=== PATIENT | female | born 1965 | race Caucasian/White ===

== ENCOUNTER 2025-01-20 00:11 | Inpatient (IN) | payer MEDICARE, MEDICAID, SELFPAY ==
[2025-01-20] VITALS (59 sets, daily range): BP systolic 102–213; BP diastolic 11–144; PULSE 60–86; RESP 14–18; TEMP 35–36.9; O2SAT 73–100; BMI 15.1
--- NOTE | ~2025-01-20 | XR_ITS ---
XR chest 1V portable 01/23/2025 05:28 Indication: Respiratory distress Procedure: AP portable chest Comparison: Comparison to multiple prior studies sequentially, with oldest reviewed study dated 01/20/2025. Findings: Borderline heart size. Bilateral airspace disease is present, most likely edema. Small left pleural effusion. No pneumothorax. Endotracheal tube tip 4.4 cm above the aylin. NG tube in the stomach. Central line tip in the SVC. Impression: 1: Borderline heart size with pulmonary edema. No significant change. Reviewed, dictated and finalized at location O. Impression: 1: Borderline heart size with pulmonary edema. No significant change.
--- NOTE | ~2025-01-20 | US_ITS ---
EXAM: US renal BI - 01/21/2025 7:55 CDT History: 59 years old Female with KAYKAY on CKD TECHNIQUE: Ultrasound of the kidneys was performed. COMPARISON: None available. FINDINGS: Increased echogenicity of both kidneys, concerning for medical renal disease. -Right: 9.6 x 4.4 x 4.2 cm. No masses, shadowing stone or perinephric abnormality. Mild hydronephrosis. -Left: 9.9 x 4.2 x 4.1 cm. No masses, shadowing stone or perinephric abnormality. Mild hydronephrosis. BLADDER: Collapsed around Mclean catheter. IMPRESSION: 1. Medical renal disease. 2. Mild bilateral hydronephrosis. No nephrolithiasis. Reviewed, dictated and finalized at location A.
--- NOTE | ~2025-01-20 | XR_ITS ---
Left wrist Technique: PA, oblique, lateral, and ulnar deviation views were obtained. Clinical History: Fracture Findings: There is old, healed fracture deformity the distal radius, with dorsal angulation present. There is a probable chronic nonunited fracture of the ulnar styloid process.. Joint spaces are preserved. Soft tissues are unremarkable. Impression: Probable chronic fracture deformities of the distal radius and ulnar styloid process, as detailed above. No definite acute fracture. Reviewed, dictated and finalized at location M. Impression: Probable chronic fracture deformities of the distal radius and ulnar styloid pr ocess, as detailed above. No definite acute fracture.
--- NOTE | ~2025-01-20 | XR_ITS ---
XR chest 1V portable 01/24/2025 05:25 Indication: Respiratory failure Procedure: AP portable chest Comparison: Comparison to multiple prior studies sequentially, with oldest reviewed study dated 01/20/2025. Findings: Borderline heart size. Right IJ central line tip in SVC. NG tube in the stomach. Endotracheal tube tip 5.2 cm above the aylin. Persistent diffuse interstitial infiltrates, consistent with edema without significant change compared with 01/23/2025. Small left pleural effusion. No pneumothorax. Impression: 1: Stable mild interstitial edema with small left pleural effusion. Reviewed, dictated and finalized at location O. Impression: 1: Stable mild interstitial edema with small left pleural effusion.
--- NOTE | ~2025-01-20 | XR_ITS ---
XR hip BI 2V w AP pelvis 01/24/2025 11:08 Indication: Acetabular fracture Procedure: AP pelvis and 2 views each hip Comparison: No prior studies for comparison. Findings: There are healing right acetabular and inferior pubic rami fractures with callus formation. No significant displacement. There is dynamic compression screw transfixing right proximal femoral fracture. Pelvic rings are otherwise intact. Left hip intact. Impression: 1: Healing right acetabular and inferior pubic rami fractures with callus formation. Reviewed, dictated and finalized at location O. Impression: 1: Healing right acetabular and inferior pubic rami fractures with callus forma tion.
--- NOTE | ~2025-01-20 | XR_ITS ---
XR chest 1V portable 01/26/2025 05:17 Indication: Respiratory failure Procedure: AP portable chest Comparison: Comparison to multiple prior studies sequentially, with oldest reviewed study dated 01/23/2025. Findings: Endotracheal tube tip 3 cm above the aylin. Right IJ central line tip in the SVC. NG tube in the stomach. Borderline heart size. Persistent retrocardiac opacification. No significant effusion or pneumothorax. Impression: 1: Stable retrocardiac opacification most likely atelectasis. Superimposed pneumonia not excluded. Reviewed, dictated and finalized at location O. Impression: 1: Stable retrocardiac opacification most likely atelectasis. Superimposed pneu monia not excluded.
--- NOTE | ~2025-01-20 | CT_ITS ---
CT head without contrast Indication: Altered mental status Technique: Serial scans were obtained through the brain without the administration of contrast. Dose reduction technique was used on this scan by utilizing automated exposure control and iterative reconstruction technique. The dose-length product (DLP) was 681.00 mGy-cm. Findings: There is no evidence of intracranial hemorrhage, mass lesion, or acute infarct. The ventricles and subarachnoid spaces are dilated, consistent with moderate atrophy. Low attenuation regions are seen within the periventricular white matter bilaterally, likely representing changes from chronic microvascular ischemic disease. There is no evidence of edema, mass effect or midline shift. The visualized paranasal sinuses and mastoid air cells are clear. Impression: No intracranial hemorrhage, mass, or acute infarct. Atrophy and chronic white matter changes, as above. Reviewed, dictated and finalized at location . Impression: No intracranial hemorrhage, mass, or acute infarct. Atrophy and chronic white matter changes, as above.
--- NOTE | ~2025-01-20 | XR_ITS ---
Upright portable view of the abdomen Clinical history: NG tube placement Findings: NG tube in satisfactory position. Bowel gas pattern is nonspecific. No evidence for obstruction or free air. No abnormal mass lesion or calcification is seen. Osseous structures are intact. Small left pleural effusion noted. Impression: NG tube in satisfactory position. Small left pleural effusion. Reviewed, dictated and finalized at [facility]. Impression: NG tube in satisfactory position. Small left pleural effusion.
--- NOTE | ~2025-01-20 | XR_ITS ---
Portable chest x-ray Comparison: 01/21/2025 Clinical History: Intubation Findings: Endotracheal tube, NG tube, and right IJ line are in place. There are small left pleural effusion with left lower lobe consolidation. There is worsening hazy airspace disease in the central right lung. Cardiomediastinal silhouette is stable. Bones and soft tissues are unremarkable. Impression: Small left pleural effusion with left lower lobe atelectasis or pneumonia. Worsening central airspace haziness in the lungs, compatible with mild central pulmonary edema. Support tubes, as above. Reviewed, dictated and finalized at location . Impression: Small left pleural effusion with left lower lobe atelectasis or pneumonia. Worsening central airspace haziness in the lungs, compatible with mild central pulmonary edema. Support tubes, as above.
--- NOTE | ~2025-01-20 | XR_ITS ---
EXAM/PROCEDURE: XR chest 1V portable - 01/20/2025 13:00 CDT HISTORY: 59 years old Female with increased O2 demand TECHNIQUE: AP view(s) of the chest. COMPARISON: None available. FINDINGS: LUNGS/ PLEURA: Small right lung pleural effusion. Bilateral airspace opacities and interstitial thickening. No pneumothorax. HEART/ MEDIASTINUM: Heart appears normal in size. BONES: Degenerative changes. OTHER: Visualized upper abdomen is unremarkable. Enteric tube projects beyond the [id number]. Tip of the endotracheal tube is 4.4 cm above aylin. IMPRESSION: Bilateral airspace opacities and interstitial thickening. Small right pleural effusion. Findings can represent pneumonia in appropriate clinical settings. Clinical correlation is recommended. Short-term follow-up chest radiograph is recommended after appropriate clinical therapy to document stability and/or resolution. Reviewed, dictated and finalized at location A. IMPRESSION: Bilateral airspace opacities and interstitial thickening. Small right pleural e ffusion. Findings can represent pneumonia in appropriate clinical settings. Cli nical correlation is recommended. Short-term follow-up chest radiograph is radha mmended after appropriate clinical therapy to document stability and/or resolut ion.
--- NOTE | ~2025-01-20 | XR_ITS ---
XR chest 1V portable 01/27/2025 05:46 Indication: Respiratory failure Procedure: AP portable chest Comparison: No prior studies for comparison. Findings: Borderline heart size. There are right interstitial infiltrates with peribronchial thickening. There is left basilar consolidation in the retrocardiac region. Right IJ central line tip in the SVC. Endotracheal tube tip 3 cm above the aylin. NG tube in the stomach. Impression: 1: Bilateral infiltrates may represent a combination of edema, pneumonia and/or atelectasis. Reviewed, dictated and finalized at location O. Impression: 1: Bilateral infiltrates may represent a combination of edema, pneumonia and/or atelectasis.
--- NOTE | ~2025-01-20 | XR_ITS ---
Portable chest x-ray Comparison: 01/20/2025 Clinical History: Intubation Findings: Endotracheal tube, NG tube, and right IJ line are in place. There are small left pleural effusion with left basilar consolidation. Mild perihilar haziness bilaterally. Cardiomediastinal silhouette is stable. Bones and soft tissues are unremarkable. Impression: Small left pleural effusion with left basilar atelectasis versus pneumonia. Probable mild central pulmonary edema. Support tubes, as above. Reviewed, dictated and finalized at [facility]. Impression: Small left pleural effusion with left basilar atelectasis versus pneumonia. Probable mild central pulmonary edema. Support tubes, as above.
--- NOTE | ~2025-01-20 | CT_ITS ---
Clinical Indication: GI bleed CT Scan of the Chest, Abdomen, and Pelvis without Contrast: Technique: Contiguous sections were acquired throughout the chest, abdomen, and pelvis without IV contrast administration. Dose reduction technique was used on this scan by utilizing automated exposure control and iterative reconstruction technique. The dose-length product (DLP) was 267.47 mGy-cm. Comparison: 06/20/2024 Findings: Endotracheal tube and NG tube are in place. There is no evidence of any significant mediastinal, hilar or axillary lymphadenopathy. The mediastinal soft tissues appear normal. No pericardial effusion. Moderate to large left pleural effusion present. There is extensive left lower lobe atelectasis. Small right pleural effusion present. There is a 9 mm spiculated nodular opacity with central cavitation in the right lower lobe (axial image 85). Moderate emphysema present. There is right apical scarring. The liver, spleen, pancreas, gallbladder, adrenals and kidneys are within normal limits. No evidence of aortic aneurysm. No lymphadenopathy. There is probable oral contrast on board. No definite evidence for GI bleed identified. No bowel obstruction or bowel wall thickening evident. Mclean catheter in place. No pelvic mass seen. Moderate abdominopelvic ascites present. Moderate T12 compression fracture deformity is present, new from prior exam. There is acute fracture of the anterior acetabulum at the junction with the right superior pubic ramus. There is additional fracture inferior pubic ramus. These fractures are acute to subacute in appearance. Impression: Moderate to large left pleural effusion with extensive left lower lobe atelectasis. Small right pleural effusion. 9 mm spiculated nodule in the right lower lobe, as detailed above, indeterminate. CT scan in 3 months advised. Consider PET/CT or attempted tissue sampling as indicated. Moderate emphysema. No definite evidence for GI bleed, but evaluation is limited without IV contrast and with oral contrast on board. Consider follow-up CT angiogram of the bowel to further evaluate for GI bleed, as indicated. Moderate abdominopelvic ascites. T12 compression fracture, somewhat age indeterminate, but new since 06/20/2024. Fractures of the right anterior acetabulum at the junction of the right superior pubic ramus and of the right inferior pubic ramus, acute to subacute in nature. Reviewed, dictated and finalized at [facility]. Impression: Moderate to large left pleural effusion with extensive left lower lobe atelecta sis. Small right pleural effusion. 9 mm spiculated nodule in the right lower lobe, as detailed above, indeterminat e. CT scan in 3 months advised. Consider PET/CT or attempted tissue sampling as indicated. Moderate emphysema. No definite evidence for GI bleed, but evaluation is limited without IV contras t and with oral contrast on board. Consider follow-up CT angiogram of the bowel to further evaluate for GI bleed, as indicated. Moderate abdominopelvic ascites. T12 compression fracture, somewhat age indeterminate, but new since 06/20/2024. Fractures of the right anterior acetabulum at the junction of the right superio r pubic ramus and of the right inferior pubic ramus, acute to subacute in natur e.
--- NOTE | ~2025-01-20 | XR_ITS ---
XR chest ET placement 01/24/2025 10:06 Indication: Intubation. Respiratory distress. Procedure: AP portable chest Comparison: Comparison to multiple prior studies sequentially, with oldest reviewed study dated 01/21/2025. Findings: Endotracheal tube tip 2.5 cm above the aylin. Right IJ central line tip in the SVC. NG tube in the stomach. There is a nodular opacity overlying the right mid thorax, not definitely seen on prior studies, most likely prominent nipple shadow. Recommend attention to this on subsequent examinations. Retrocardiac consolidation. Small left pleural effusion. No pneumothorax. Impression: 1: Retrocardiac consolidation which may represent atelectasis and/or pneumonia. 2: Nodular opacity overlying the right mid thorax, not definitely seen on prior studies, most likely prominent nipple shadow. Recommend attention to this on subsequent examinations. Retrocardiac consolidation. Reviewed, dictated and finalized at location O. Impression: 1: Retrocardiac consolidation which may represent atelectasis and/or pneumonia. 2: Nodular opacity overlying the right mid thorax, not definitely seen on prio r studies, most likely prominent nipple shadow. Recommend attention to this on subsequent examinations. Retrocardiac consolidation.
--- NOTE | ~2025-01-20 | XR_ITS ---
XR chest 1V portable 01/25/2025 05:17 Indication: Respiratory failure Procedure: AP portable chest Comparison: Comparison to multiple prior studies sequentially, with oldest reviewed study dated 01/22/2015. Findings: Borderline heart size. Mild interstitial edema. Retrocardiac opacification most likely represents atelectasis. The lungs are hyperinflated which is consistent with, but not diagnostic of chronic obstructive pulmonary disease. No pneumothorax. Nodular density right mid thorax seen on prior study not seen on current study, compatible with nipple shadow. Impression: 1: Borderline heart size with mild interstitial edema. 2: Retrocardiac opacification, most likely atelectasis. Reviewed, dictated and finalized at location O. Impression: 1: Borderline heart size with mild interstitial edema. 2: Retrocardiac opacification, most likely atelectasis.
--- NOTE | ~2025-01-20 | XR_ITS ---
EXAMINATION: XR chest 1V portable DATE: 02/02/2025 05:26 INDICATION: Pleural effusions TECHNIQUE: frontal view of the chest was obtained. COMPARISON: Chest radiograph dated 01/28/[address] dated 01/29/2025 FINDINGS: Patent basilar predominant airspace opacities in the left mid to lower and right lower lung zones consistent with persistent small right and small to moderate- sized left pleural effusions. Retrocardiac consolidation in the left lower lung zone consistent with associated atelectasis or pneumonia. Increased initial pattern in the lower lungs with a few peripheral Maria Alejandra B-lines consistent with mild pulmonary edema. Persistent indeterminate nodular opacity in the right lower lobe. No new nodular opacity left upper lung zone without correlate on the prior CT which is more likely artifactual. No pneumothorax. Cardiomegaly. IMPRESSION: 1. Likely congestive heart failure with cardiomegaly, mild pulmonary edema and small right and [id number] left pleural effusions. 2. Retrocardiac consolidation in the left lower lung zone which could represent atelectasis or pneumonia. 3. Indeterminate nodular opacity in the. Right lower lobe Reviewed, dictated and finalized at location A. IMPRESSION: 1. Likely congestive heart failure with cardiomegaly, mild pulmonary edema and small right and [id number] left pleural effusions. 2. Retrocardiac consolidation in the left lower lung zone which could represent atelectasis or pneumonia. 3. Indeterminate nodular opacity in the. Right lower lobe
--- NOTE | ~2025-01-20 | XR_ITS ---
Portable chest x-ray Comparison: 06/20/2024 Clinical History: Line placement Findings: Endotracheal tube, NG tube, and right IJ line are in satisfactory positions. There is small left pleural effusion with left basilar airspace disease. Right lung clear. Cardiomediastinal silhouette is stable. Bones and soft tissues are unremarkable. Impression: Small left pleural effusion with basilar atelectasis versus pneumonia. Correlate clinically. Support tubes, as above. Reviewed, dictated and finalized at location . Impression: Small left pleural effusion with basilar atelectasis versus pneumonia. Correlat e clinically. Support tubes, as above.
--- NOTE | ~2025-01-20 | CT_ITS ---
EXAMINATION: CT diagnostic chest wo con DATE: 01/29/2025 16:11 INDICATION: Right upper lobe cavity TECHNIQUE: Computed tomography (CT) of the chest was performed without intravenous contrast. The dose-length product was 142.17 mGy-cm. COMPARISON: CT chest abdomen and pelvis 01/20/2025 FINDINGS: Study is slightly limited due to motion artifact. No enlarged mediastinal or hilar lymph nodes. Heart is mildly moderately enlarged, unchanged. There are a few coronary artery calcifications. There is contrast noted in the stomach and proximal small bowel. There is nonspecific fluid and fat stranding in the upper abdomen similar to the study from 01/20/2025. Thoracic aorta is partially calcified but is not aneurysmal. Small right-sided pleural effusion. Moderate- sized left-sided pleural effusion. No pneumothorax. Grossly stable moderate centrilobular emphysema.Stable 1.9 cm bulla in the right lung apex. Grossly stable size and configuration of the 0.9 cm cavitary lesion in the superior segment of the right lower lobe. Moderate-sized consolidation in the left lower lobe with air bronchograms. Mild biapical scarring. Bones appear osteopenic. Multilevel degenerative change in the visualized spine. Stable compression fracture in what appears to be T12 vertebral body. Stable compression fracture of T6. IMPRESSION: 1. Grossly stable size and configuration of the 0.9 cm cavitary lesion in the superior segment of the right lower lobe. Differential includes but is not limited to an infectious process, necrotic malignancy or septic pulmonary embolus. Consider a biopsy or PET/CT. Short-term follow-up is recommended. 2. Moderate-sized left-sided pleural effusion. 3. Small right-sided pleural effusion. 4. Moderate-sized consolidation in the left lower lobe with air bronchograms. Recommend follow-up to resolution. 5. There is contrast within the stomach and proximal small bowel. 6. There is nonspecific fluid and fat stranding in the upper abdomen similar to the CT study from 01/20/2025. Reviewed, dictated and finalized at location Q. IMPRESSION: 1. Grossly stable size and configuration of the 0.9 cm cavitary lesion in the s uperior segment of the right lower lobe. Differential includes but is not limit ed to an infectious process, necrotic malignancy or septic pulmonary embolus. C onsider a biopsy or PET/CT. Short-term follow-up is recommended. 2. Moderate-sized left-sided pleural effusion. 3. Small right-sided pleural effusion. 4. Moderate-sized consolidation in the left lower lobe with air bronchograms. R ecommend follow-up to resolution. 5. There is contrast within the stomach and proximal small bowel. 6. There is nonspecific fluid and fat stranding in the upper abdomen similar to the CT study from 01/20/2025.
--- NOTE | ~2025-01-20 | XR_ITS ---
MODIFIED ESOPHAGRAM HISTORY: Recommended by speech therapist TECHNIQUE: Modified barium esophagram was performed on 01/29/2025. I administered fluoroscopy and performed the exam with speech pathologist. Patient was seated for lateral fluoroscopic imaging for ingestion of thin liquids, pudding, solids and quantified amounts, followed by thin liquids in uncontrolled amounts. This was recorded on tape. A single fluoroscopic spot image was also recorded. The DAP for this procedure was 1.449 Gycm2. The amount of fluoroscopy time used during this procedure was 2.9 minutes. FINDINGS: Oral stage: Adequate function. Pharyngeal stage: Reduced laryngeal elevation. There is laryngeal penetration with aspiration with thin liquids.. Cervical/esophageal stage: Adequate function. IMPRESSION: Pharyngeal dysphagia with laryngeal penetration and aspiration with thin liquids. Please correlate with speech pathologist findings and specific feeding recommendations. Reviewed, dictated and finalized at location A.
--- NOTE | ~2025-01-20 | XR_ITS ---
Portable chest x-ray Comparison: 01/20/2025 at 1:16 AM Clinical History: Tube placement Findings: Endotracheal tube, NG tube, and right IJ line are in place. Small left pleural effusion present with left basilar airspace disease. Right lung clear. Possible COPD. Cardiomediastinal silhouette is stable. Bones and soft tissues are unremarkable. Impression: Small left pleural effusion with left basilar atelectasis versus pneumonia. COPD. Support tubes, as above. Reviewed, dictated and finalized at location . Impression: Small left pleural effusion with left basilar atelectasis versus pneumonia. COPD. Support tubes, as above.
--- NOTE | ~2025-01-20 | XR_ITS ---
XR chest 1V portable 01/28/2025 05:39 Indication: Respiratory failure Procedure: AP portable chest Comparison: Comparison to multiple prior studies sequentially, with oldest reviewed study dated 01/24/2025. Findings: Cardiomegaly. Persistent retrocardiac airspace consolidation. No significant effusion. No pneumothorax. Endotracheal tube tip 3.2 cm above the aylin. Right IJ central line tip in the SVC. Impression: 1: Retrocardiac airspace consolidation which may represent atelectasis or pneumonia. No significant change. Reviewed, dictated and finalized at location O. Impression: 1: Retrocardiac airspace consolidation which may represent atelectasis or pneum onia. No significant change.
--- NOTE | 2025-01-20 00:20 | ED_ITS ---
HPI - General Adult General Chief complaint: GI Bleed Stated complaint: GI BLEED History of Present Illness HPI narrative: 59-year-old female presenting to the emergency department for evaluation for a GI bleed. EMS had been called to the house multiple times today but patient had been alert oriented and had declined transfer. Daughter once again called EMS tonight hand because patient was confused they did not allow patient to decline transfer. Upon arrival emergency department patient is cachectic and ill- appearing. Patient states she does want to be a full code and wants everything done to save her life. family arrived after the patient was stabilized and they conveyed that the patient has a making statements on wishing to . Patient does have a prior history of alcohol abuse and respiratory distress and does go to [place] frequently. Ambulance was called to the house 3 times today and patient declined twice but was too altered to decline the 3rd time. Related Data Home Medications ?Medication ?Instructions ?Recorded ?Confirmed ?Last Taken ?Type clonazepam 1 mg tablet mg 01/20/25 Unknown History diazepam 10 mg tablet mg 01/20/25 Unknown History Allergies Allergy/AdvReac Type Severity Reaction Status Date / Time codeine Allergy Mild Verified 11/23/09 20:50 gabapentin Allergy Mild Verified 11/23/09 20:50 Penicillins Allergy Mild Verified 11/23/09 20:50 Review of Systems 2 Review of Systems: All systems reviewed & are unremarkable except as noted in HPI and below Exam 2 Narrative: APPEARANCE: Cachectic and ill-appearing HEAD: normocephalic, atraumatic. EYES: pupils equal reactive NOSE: Normal no drainage EARS:TMS clear with good light reflex. THROAT: Pharynx clear, no exudate. NECK: Supple. No adenopathy, no masses. RESPIRATORY: lung sounds clear bilaterally after intubation CARDIOVASCULAR: tachycardia ABDOMINAL: Soft, nontender, nondistended, normal bowel sounds MUSCULOSKELETAL: Moves all extremities. Strength/ROM intact, No edema, No calf tenderness. NEURO: somnolent moving all limbs equally SKIN: Warm, dry. Normal Color Course Vital Signs Vital signs: Vital Signs Pulse Rate 86 01/20/25 00:30 Respiratory Rate 16 01/20/25 00:30 Blood Pressure 110/85 01/20/25 00:30 Pulse Oximetry 92 01/20/25 00:30 Temperature 95 F L 01/20/25 04:49 Pulse Rate 67 01/20/25 04:49 Respiratory Rate 16 01/20/25 04:49 Blood Pressure 109/84 01/20/25 04:49 Pulse Oximetry 100 01/20/25 04:49 Oxygen Delivery Mechanical Ventilation 01/20/25 04:29 Oxygen Flow Rate 3 01/20/25 00:31 Fraction of Inspired Oxygen 100 01/20/25 04:29 Procedures Central Line Placement Right IJ: Central Line Time: 01:20 Performed Emergently - Given emergent patient condition, temporal constraints may have precluded informed consent.: Yes Time Out Performed: Yes Patient Placed on Monitor/Pulse Ox: Yes Max. Sterile Barrier Technique: Caps, large sterile sheet and hand hygiene Central Line Prep: 2% chlorhexidine scrub and sterile drapes applied Technique: US-Guided Local Anesthetic: lidocaine 1% Ultrasound Used for Placement: Yes Central Line Lumen Inserted: triple Post Procedure: sutured in place, good blood return, all ports aspirated, flushed, capped and sterile dressing applied Post Procedure X-Ray: tip of catheter in good position and no pneumothorax seen Patient Tolerated Procedure: well and no complications Complications: none Intubation Intubation #1: Intubation Date: 01/20/25 Intubation Time: 00:20 Time out performed: Yes sedative: Etomidate Mg Given: 20 paralytic: Succinylcholine Mg Given: 100 Laryngoscope: fiber optic video scope Tube Size (cm): 7.5 Method of Intubation: orotracheal Number of Attempts: 1 Tube Secured Depth (cm): 21 Tube Secured Location: lips Tube Placement Confirmation: visualized tube passing through cords, equal breath sounds bilaterally, no breath sounds over epigastrium and confirmation by capnometry Patient Tolerated Procedure: well and no complications Intubation Complications: none Medical Decision Making [facility] Narrative Medical decision making narrative: 59-year-old female present to the emergency department for evaluation for dark emesis and altered mental status. Patient was having a lot of coffee-ground emesis upon arrival to the emergency department. Patient stated she does wish to be a full code and soon after that patient began having respiratory distress and was not protecting her airway during emesis. Patient was intubated as described in the procedure note with no complications. Patient had poor venous access and due to concern for worsening clinical condition a central line was placed in the right IJ. with active hematemesis 2 units of on cross match blood were ordered emergently. Patient was started on IV Protonix, IV octreotide bolus and infusion. blood cultures were ordered and patient was also started on vanc and Rocephin due to her hypothermia and leukocytosis. Case was discussed with GI physician and they were consulted. No further recommendations were given. Dance Artist was consulted. CT abdomen pelvis did show evidence of possible acetabular fracture and ortho consult was placed. I did not anticipate the patient will be going to the OR today for surgical repair, ortho was not called overnight for this consult. case was discussed with hospitalist patient was accepted to the ICU. Patient's family was updated. Critical Care Procedure Note Authorized and Performed by: Saw South Total critical care time: Approximately 36 minutes Due to a high probability of clinically significant, life threatening deterioration, the patient required my highest level of preparedness to intervene emergently and I personally spent this critical care time directly and personally managing the patient. This critical care time included obtaining a history; examining the patient; pulse oximetry; ordering and review of studies; arranging urgent treatment with development of a management plan; evaluation of patient's response to treatment; frequent reassessment; and, discussions with other providers. This critical care time was performed to assess and manage the high probability of imminent, life-threatening deterioration that could result in multi-organ failure. It was exclusive of separately billable procedures and treating other patients and teaching time. Please see MDM section and the rest of the note for further information on patient assessment and treatment. Differential Diagnosis Differential Diagnosis: Upper GI bleed, lower GI bleed, anemia, adverse medication reaction, overdose Vital Signs Vital Signs: Vital Signs Pulse Rate 86 01/20/25 00:30 Respiratory Rate 16 01/20/25 00:30 Blood Pressure 110/85 01/20/25 00:30 Pulse Oximetry 92 01/20/25 00:30 Temperature 95 F L 01/20/25 04:49 Pulse Rate 67 01/20/25 04:49 Respiratory Rate 16 01/20/25 04:49 Blood Pressure 109/84 01/20/25 04:49 Pulse Oximetry 100 01/20/25 04:49 Oxygen Delivery Mechanical Ventilation 01/20/25 04:29 Oxygen Flow Rate 3 01/20/25 00:31 Fraction of Inspired Oxygen 100 01/20/25 04:29 Lab Data Lab results reviewed: Yes I reviewed the patient's lab results. 01/20/25 00:30 01/20/25 00:30 Labs: Lab Results 01/20/25 01/20/25 01/20/25 Range/Units 00:30 00:30 01:54 WBC 11.2 H (4.5-10.0) K/mm3 RBC 2.56 L (4.2-5.4) M/mm3 Hgb 7.0 L (12.0-15.0) g/dL Hct 22.8 L (37.0-47.0) % MCV 89.1 (80-100) fl MCH 27.3 (26-34) pg MCHC 30.7 L (32-36) g/dl RDW 16.2 H (11.5-14.5) % Plt Count 105 L D (150-375) k/mm3 MPV 10.9 H (7.4-10.4) fl Immature Gran % (Auto) Not Reportable Neut % (Auto) Not Reportable Lymph % (Auto) Not Reportable [place] % (Auto) Not Reportable Eos % (Auto) Not Reportable Baso % (Auto) Not Reportable Lymph # (Auto) Not Reportable [place] # (Auto) Not Reportable Eos # (Auto) Not Reportable Baso # (Auto) Not Reportable Abs Immat Gran (auto) Not Reportable Absolute Neuts (auto) Not Reportable Absolute Nucleated RBC Not Reportable Total Counted 100 Neutrophils % (Manual) 89 H (46-73) % Band Neutrophils % 1 (0-6) % Lymphocytes % (Manual) 6.0 L (18-44) % Monocytes % (Manual) 4 (3-9) % Nucleated RBC % Not Reportable Abs Neuts (Manual) 10.08 H (1.3-6.7) K/mm3 Abs Lymphs (Manual) 0.67 L (1.1-4.5) K/mm3 Abs Monocytes (Manual) 0.44 (0.1-0.90) K/mm3 Nucleated RBCs 2 % Platelet Estimate Decreased (Adequate) % Immature Plt Fraction 3.1 (0.9-11.2) % Hypochromasia 2+ Poikilocytosis 1+ Anisocytosis 1+ Ovalocytes 1+ Schistocytes 1+ ESR 14 (0-20) mm/hr PT 16.9 H (11.1-14.7) Seconds INR 1.4 APTT 26.7 (22.3-36.8) Seconds Sodium 128 L (137-145) mmol/L Potassium 2.6 L* (3.4-5.0) mmol/L Chloride 91 L (98-107) mmol/L Carbon Dioxide 26 (22-30) mmol/L Anion Gap 11 (4-12) mmol/L BUN 109 H* D (7-17) mg/dL Creatinine 3.43 H (0.7-1.0) mg/dL Estim Creat Clear Calc Not Reportable Estimated GFR 14 L (59 - ) Glucose 116 H (65-110) mg/dL Lactic Acid (0.7-2.0) mmol/L Calcium 7.2 L (8.4-10.2) mg/dL Magnesium 2.0 (1.6-2.3) mg/dL Iron 32 L (37-170) ug/dL TIBC 321 (261-462) ug/dL % Saturation 10 L (20-50) % Total Bilirubin 1.8 H (0.2-1.3) mg/dL AST 56 H (14-36) U/L ALT 123 H (6-35) U/L Alkaline Phosphatase 96 (38-126) U/L C-Reactive Protein 0.9 Cancelled (<1.0) mg/dL Total Protein 5.0 L (6.3-8.2) g/dL Albumin 2.7 L (3.5-5.1) g/dL Lipase 92 (23-300) U/L Procalcitonin 1.2 ng/mL Urine Opiates Screen Negative (Negative) Urine Methadone Screen Negative (Negative) Ur Barbiturates Screen Negative (Negative) Ur Phencyclidine Scrn Negative (Negative) Ur Amphetamine Screen Positive A (Negative) U Benzodiazepines Scrn Positive A (Negative) Urine Cocaine Screen Negative (Negative) U Cannabinoids Screen Negative (Negative) Ethyl Alcohol < 10 (<10) mg/dL Blood Type Antibody Screen Crossmatch 01/20/25 Range/Units 02:00 WBC (4.5-10.0) K/mm3 RBC (4.2-5.4) M/mm3 Hgb (12.0-15.0) g/dL Hct (37.0-47.0) % MCV (80-100) fl MCH (26-34) pg MCHC (32-36) g/dl RDW (11.5-14.5) % Plt Count (150-375) k/mm3 MPV (7.4-10.4) fl Immature Gran % (Auto) Neut % (Auto) Lymph % (Auto) [place] % (Auto) Eos % (Auto) Baso % (Auto) Lymph # (Auto) [place] # (Auto) Eos # (Auto) Baso # (Auto) Abs Immat Gran (auto) Absolute Neuts (auto) Absolute Nucleated RBC Total Counted Neutrophils % (Manual) (46-73) % Band Neutrophils % (0-6) % Lymphocytes % (Manual) (18-44) % Monocytes % (Manual) (3-9) % Nucleated RBC % Abs Neuts (Manual) (1.3-6.7) K/mm3 Abs Lymphs (Manual) (1.1-4.5) K/mm3 Abs Monocytes (Manual) (0.1-0.90) K/mm3 Nucleated RBCs % Platelet Estimate (Adequate) % Immature Plt Fraction (0.9-11.2) % Hypochromasia Poikilocytosis Anisocytosis Ovalocytes Schistocytes ESR (0-20) mm/hr PT (11.1-14.7) Seconds INR APTT (22.3-36.8) Seconds Sodium (137-145) mmol/L Potassium (3.4-5.0) mmol/L Chloride (98-107) mmol/L Carbon Dioxide (22-30) mmol/L Anion Gap (4-12) mmol/L BUN (7-17) mg/dL Creatinine (0.7-1.0) mg/dL Estim Creat Clear Calc Estimated GFR (59 - ) Glucose (65-110) mg/dL Lactic Acid 2.6 H (0.7-2.0) mmol/L Calcium (8.4-10.2) mg/dL Magnesium (1.6-2.3) mg/dL Iron (37-170) ug/dL TIBC (261-462) ug/dL % Saturation (20-50) % Total Bilirubin (0.2-1.3) mg/dL AST (14-36) U/L ALT (6-35) U/L Alkaline Phosphatase (38-126) U/L C-Reactive Protein (<1.0) mg/dL Total Protein (6.3-8.2) g/dL Albumin (3.5-5.1) g/dL Lipase (23-300) U/L Procalcitonin ng/mL Urine Opiates Screen (Negative) Urine Methadone Screen (Negative) Ur Barbiturates Screen (Negative) Ur Phencyclidine Scrn (Negative) Ur Amphetamine Screen (Negative) U Benzodiazepines Scrn (Negative) Urine Cocaine Screen (Negative) U Cannabinoids Screen (Negative) Ethyl Alcohol (<10) mg/dL Blood Type O Positive Antibody Screen Negative Crossmatch See Detail Imaging Data Radiologist's impression: overnight read CT chest without contrast Impression: Superior endplate compression deformity of T12, endotracheal tube is in place the tip terminating above the level of the aylin. Right-sided central venous catheter is in place terminating within the distended SVC. Enteric tube is in place terminating within the stomach. Bilateral pleural effusions and left lower lobe atelectasis and pneumonia. Cavitary nodule seen within the right lower lobe which may represent underlying infectious or inflammatory nodule although underlying malignancy is not excluded. Recommend follow-up CT in 3 [address] CT abdomen pelvis without contrast impression: Right acetabular fracture. Right inferior pubic ramus fracture. Moderate abdominal and pelvic ascites. Nonspecific circumferential wall thickening of the ascending colon seen on images 3 image 179 without evidence of an. Otherwise no acute intra-abdominal or pelvic findings. Critical Care Time Critical Care Time Critical Care Time: Yes Total Critical Care Time: 36 Discharge Plan Discharge Clinical Impression: Acute upper GI bleeding, Acetabular fracture, Closed fracture of pubic ramus Patient Disposition: Still a Patient Condition: Critical
--- OUTSIDE RECORDS SUMMARY | 2025-01-20 00:21 | XMS_ITS | Encounter Summary ---
Author Organization [facility] Care Team Providers Care Blasting Entry Specialist Name Role Phone Rhonda Hurst MD Primary Care Provider U Ivanna Hudson MD Primary Care Provider Rhonda Hurst MD Primary Care Provider U Isiah Jansen MD Primary Care Provider [phone] Veroniac Aguilera MD Primary Care Provider [phone] Isiah Matias MD Primary Care Provider [phone] Unknown, Notinfile Primary Care Provider Unavail able Rhonda Hurst MD Unavailable Unavail able Rhonda Hurst MD Unavailable Unavail able Conrad Horan MD Unavailable [phone] Conrad Horan MD Primary Care Provider [phone] Maryanne CruzW Unavailable Encounter Details Date Type Department Care Team (Latest Contact Info) Description 11/17/2015 Orders Only [facility] ProviderJoan MD [address] [place] [id number] Social History Tobacco Use Types Packs/Day Years Used Date Smoking Tobacco: Never Assessed Comments Unknown Sex and Gender Information Value Date Recorded Sex Assigned at Not on file 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 us Historical Provider Final Res ult documented in this encounter Visit Diagnoses Not on filedocumented in this encounter Care Teams Blasting Entry Specialist Relationship Specialty Start Date End Date Rhonda Hurst MD [address] [facility] [address] [place] [address] PCP - General 07/26/09 04/14/19 Ivanna Cerrato MD [address] [place] [address] PCP - General Internal Medicine 04/15/19 04/20/20 Rhonda Hurst MD [address] [facility] [address] [place] [address] PCP - General 04/21/20 08/30/20 Isiah Matias MD [address] [place] [address] PCP - General Internal Medicine 08/31/20 12/27/20 Veronica Aguilera MD [address] [place] [address] [address] [address] PCP - General Internal Medicine 12/28/20 08/09/21 Isiah Matias MD [address] [place] [address] PCP - General Internal Medicine 08/10/21 08/23/21 Unknown, Notinfile PCP - General 08/24/21 10/08/21 Conrad Horan MD PCP - General Family Medicine 10/09/21 12/23/24 Rhonda Hurst MD [address] [facility] [address] [place] [address] 04/15/19 04/20/20 Rhonda Hurst MD [address] [facility] [address] [place] [address] 08/31/20 08/23/21 Conrad Horan MD Family Medicine 08/24/21 12/23/24 Maryanne Cruz, [address] [place] [address] Director Commercial Sales 12/04/22 12/04/22 documented as of this encounter
--- OUTSIDE RECORDS SUMMARY | 2025-01-20 00:21 | XMS_ITS | Encounter Summary ---
Author Organization [facility] Address [address] [place] [address] Care Team Providers Care Receiving Clerk Name Role Phone Unavailable Primary Care Provider Unavailabl e Reason for Visit * Reason Onset Date Comments Marked bradycardia 06/13/2024 Spoke Markell/ Israel bustamante @ Dr. Hebert's exchange Encounter Details Date Type Department Care Team (Late st Contact Info) Description 06/13/2024 Telephone [facility] Admitting [address] [place] [address] Homer Escoto, [address] [facility] [address] [place] [address] Marked bradycardia (Spoke Eric Napoles @ Dr. 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
--- OUTSIDE RECORDS SUMMARY | 2025-01-20 00:21 | XMS_ITS | Clinical Summary ---
Author Organization [facility] Address [address] [place] [address] Care Team Providers Care Hotel Concierge Name Role Phone Unavailable Primary Care Provider Unavailabl e Allergies Active Allergy Reactions Criticality Noted Date Comments Alendronate Vomiting,Headache Reaction: vomiting, headaches, Amitriptyline Other (See comments) Reaction: change in mental status, delusion, Codeine Swollen tongue,Other (See comments) Reaction: swollen tongue, rapid heartbet, , Codeine Hives,Shortness of breath,Swelling High 10/16/2017 Gabapentin Other (See comments) High 01/21/2024 Reaction: memory loss, Penicillins Anaphylaxis Reaction: Anaphylaxis, , Penicillins Shortness of breath,Urticaria High 10/16/2017 Medications buprenorphine-nal oxone (SUBOXONE) 8-2 mg per film buprenorphine 8 mg-naloxone 2 mg sublingual film Active clonazePAM (KlonoPIN) 1 mg tablet Take 1 tablet (1 mg total) by mouth 3 (three) times a day Active diazePAM (VALIUM) 10 mg tablet Take 1 tablet (10 mg total) by mouth daily as needed 08/08/19 22 Active ipratropium-albut Davi (COMBIVENT RESPIMAT) 20-100 mcg/actuation inhalerIndication s:Chronic Obstructive Pulmonary Disease with Bronchospasms Inhale 1 puff 4 (four) times a day 4 g 11 03/14/20 22 Active fluticasone propionate (FLONASE) 50 mcg/actuation nasal spray Administer 2 sprays into each nostril daily 16 g 5 03/14/20 22 Active naproxen (NAPROSYN) 500 mg tablet Take 1 tablet (500 mg total) by mouth 2 (two) times a day as needed for pain (pain) 60 tablet 2 03/14/20 22 Active carisoprodoL (SOMA) 350 mg tablet Take 1 tablet (350 mg total) by mouth 3 (three) times a day as needed for muscle spasms 60 tablet 1 12/05/19 23 Active Active Problems Problem Noted Date Diagnosed Date Chronic hepatitis C without hepatic coma 022 Chronic midline thoracic back pain 11/30/2021 Seizure 01/31/2017 Elevated blood-pressure read ing without diagnosis of hypertension 01/30/2017 Tobacco dependence syndrome 10/17/2013 Overview (09/05/2016): Tobacco abuse disorder Chronic fatigue syndrome 10/17/2013 Overview (09/05/2016): Chronic fatigue disorder Osteoporosis 10/17/2013 Overview (09/07/2016): Osteoporosis Mixed bipolar I disorder 11/03/2009 Chronic obstructive pulmonary disease 03/10/2009 Bipolar affective disorder 03/10/2009 Knee pain 03/10/2009 Fibromyalgia 03/10/2009 Hypertension 03/10/2009 Resolved Problems Problem Noted Date Diagnosed Date Resolved Date Fibrositis 10/17/2013 11/30/2021 Overview (09/07/2016): Fibromyalgia Encounters Date Type Department Care Team Description 12/24/2024 FELIZ IP Outreach [facility] Care Organization [address] [place] [id number] Riri Puga LPN from Last 3 Months Immunizations Immunization Administration Dates Next Due Influenza, Quadrivalent, Spl it, Preservative Free, Intramuscular 08/03/2020 Influenza, Unspecified 03/14/2022(Deferred: Othe r),03/03/2021 Pneumococcal Polysaccharide PPV23 07/26/2009 Td, adsorbed 06/03/2005 Surgical History Surgery Date Site/Laterality Comments TUBAL LIGATION 1995 Bilateral tubal ligation US GUIDED THORACENTESIS 06/02/2024 N/A US GUIDED THORACENTESIS 06/02/2024 N/A US GUIDED THORACENTESIS 06/08/2024 N/A US GUIDED THORACENTESIS 06/08/2024 N/A Medical History Medical History Date Comments Osteoarthritis Osteoarthritis Bipolar 1 disorder (HCC) Osteoporosis Family History Medical History Relation Name Comments Coronary artery disease Father Dipika nary artery disease; Diabetes type II Other Family hist ory of Diabetes -Type 2; Leukemia Sister 2 Cancer -leukemi a; Alcohol abuse Sister 3 Alcoholism; Ca use of : Alcoholism Diabetes type II Sister 4 Diabetes -T ype 2; Relation Name Status Comments Father Other Sister 1 (Age 41) Sister 2 Sister 3 Sister 4 Social History Tobacco Use Types Packs/Day Years Used Date Smoking Tobacco: Every Day Cigarettes Smokeless Tobacco: Never Tobacco Cessation:Ready to Q uit: Not Asked; Counseling Given: Not Answered Alcohol Use Standard Drinks/Week Comments No 0 (1 standard drink = 0.6 oz pur e alcohol) PHQ-2 Answer Date Recorded PHQ-2 Total Score (If total score is 3 or more points, staff should administer the PHQ-9) 0 10/18/2022 Comments No Sex and Gender Information Value Date Recorded Sex Assigned at Not on file Legal Sex Female 7:30 AM 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 Gender Identity Not on file Sexual Orientation Not on file Obstetrics History Last Filed Vital Signs Vital Sign Reading Time Taken Comments Blood Pressure 132/84 08/24/2021 1:25 PM CDT Pulse 68 08/24/2021 1:25 PM CDT Temperature 36.9 C (98.5 F) 08/24/2021 1:25 PM CDT Respiratory Rate - - Oxygen Saturation 98% 08/24/2021 1:25 PM CDT Inhaled Oxygen Concentration - - Weight 47.6 kg (105 lb) 08/24/2021 1:25 PM CDT Height 165.1 cm (5' 5) 08/24/2021 1:25 PM CDT Body Mass Index 17.47 08/24/2021 1:25 PM CDT Plan of Treatment Health Maintenance Due Date Last Done Comments Cervical Cancer Screening 1964 Hepatitis B Screening 1982 Regular Well Visit/Exam 18-64 1982 DTaP/Tdap/Td Vaccine (1 - Tdap) 06/04/2005 6 Pneumococcal vaccine <65 (2 of 2 - PCV) 07/26/2010 07/26/2009 Zoster Vaccine (1 of 2) 2014 Breast Cancer Screening-Mammogram 05/14/2018 017, 02/12/2017 Depression Screening 10/19/2023 10/18/2022, 03/14/2022, 08/24/2021 Covid-19 Vaccine (3 - 2023-2 5 season) 2024 11/23/2020, 10/26/2020 Colon Cancer Screening-DNA Stool 10/18/2024 10/19/19 22 Influenza Vaccine (#1) 2025 03/03/2021, 2020 Hepatitis C Screening Completed 11/30/2021 , 11/30/2021, 08/24/2021, Additional history exists Goals Goal Patient Goal Type Associated Problems Recent Progress Patient-Stated? Author ACO SW Goal - Patient can identify and utilize needed community resources ACO Care Management Maryanne Mustafa, LICENSING ENGINEER Note: Problem: Need for Community Resources Interventions: - Provide patient/family with a list of appropriate resources for their specific need. - Help to coordinate resources. - Follow up to ensure patient/family has connected with the appropriate resources / personnel. Procedures Procedure Name Priority Date/Time Associated Diagnosis Comments DIABETIC EYE EXAM Routine 12/02/2024 STOOL DNA COLOGUARD Routine 10/18/2021 9:30 PM CDT Colon cancer screening HEPATITIS C ANTIBODY Routine 08/24/2021 1:59 PM CDT from Last 3 Months or Most Recently Relevant to Health Maintenance Results * Diabetic Eye Exam (12/02/2024) us Historical Provider HEALTH MAINTENANCE Final Result * Stool DNA - Cologuard (10/18/2021 9:30 PM CDT) Stool DNA - Cologuard Negative Negative basno (CLIA #:[id number]) Comment: NEGATIVE TEST RESULT. A negative Cologuard result indicates a low likelihood that a colorectal cancer (CRC) or advanced adenoma (adenomatous polyps with more advanced pre-malignant features) is present. The chance that a person with a negative Cologuard test has a colorectal cancer is less than 1 in 1500 (negative predictive value >99.9%) or has an advanced adenoma is less than 5.3% (negative predictive value 94.7%). These data are based on a prospective cross-sectional study of 10,000 individuals at average risk for colorectal cancer who were screened with both Cologuard and colonoscopy. (Ramesh Looney et al, N Engl J Med 2014;370(14):3180-5878) The normal value (reference range) for this assay is negative. COLOGUARD RE-SCREENING RECOMMENDATION: Periodic colorectal cancer screening is an important part of preventive healthcare for asymptomatic individuals at average risk for colorectal cancer. Following a negative Cologuard result, the [place] [employer] Society and U.S. Multi-Society Task Force screening guidelines recommend a Cologuard re-screening interval of 3 years. References: [place] [employer] Guideline for Colorectal Cancer Screening: https://www.cancer.org/cancer/vdfqb-wfakpd-kigaww/nwdtoqnod-koxydbyoy-zwstinh/ac s-rec ommendations.html.; Joe DK, Ian CR, Christie HameedK, Colorectal Cancer Screening: Recommendations for Physicians and Patients from the U.S. Multi-Society Task Force on Colorectal Cancer Screening , Am J Gastroenterology 2017; 112:5468-7514. TEST DESCRIPTION: Composite algorithmic analysis of stool DNA-biomarkers with hemoglobin immunoassay. Quantitative values of individual biomarkers are not reportable and are not associated with individual biomarker result reference ranges. Cologuard is intended for colorectal cancer screening of adults of either sex, 45 years or older, who are at average-risk for colorectal cancer (CRC). Cologuard has been approved for use by the U.S. FDA. The performance of Cologuard was established in a cross sectional study of average-risk adults aged 50-84. Cologuard performance in patients ages 45 to 49 years was estimated by sub-group analysis of near-age groups. Colonoscopies performed for a positive result may find as the most clinically significant lesion: colorectal cancer [4.0%], advanced adenoma (including sessile serrated polyps greater than or equal to 1cm diameter) [20%] or non- advanced adenoma [31%]; or no colorectal neoplasia [45%]. These estimates are derived from a prospective cross-sectional screening study of 10,000 individuals at average risk for colorectal cancer who were screened with both Cologuard and colonoscopy. (Ramesh Bernal al, N Engl J Med 2014;370(14):9113-2738.) Cologuard may produce a false negative or false positive result (no colorectal cancer or precancerous polyp present at colonoscopy follow up). A negative Cologuard test result does not guarantee the absence of CRC or advanced adenoma (pre-cancer). The current Cologuard screening interval is every 3 years. ([place] [employer] Society and U.S. Multi-Society Task Force). Cologuard performance data in a 10,000 patient pivotal study using colonoscopy as the reference method can be accessed at the following location: www.[employer]/results. Additional description of the Cologuard test process, warnings and precautions can be found at www.[employer]rd.com. Stool 10/18/2021 9:30 PM CDT 10/20/2021 9:40 AM CDT Conrad Horan MD LAB BODY FLUIDS AND STOOLS OR DERABLES Final Result [facility] (CLIA #:[id number]) [address] [place] [address] * (ABNORMAL) Hepatitis C antibody (08/24/2021 1:59 PM CDT) Hep C Ab Reactive( A) Nonreactive [facility]ONA MORALES Comment: Critical Result Critical Result called to and read back by Shirley Lauren, DATE: 2021-08-25 08:18:26 BY: Deepali Smith Interpretive Data Nonreactive: Antibodies to HCV not detected. Does NOT exclude the possibility of recent exposure to HCV. Equivocal: Equivocal for HCV antibodies. Supplemental molecular testing will be automatically performed to determine infection status in accordance with current CDC screening recommendations. Reactive: Positive for HCV antibodies. This may represent current or past HCV infection. Supplemental molecular testing will be automatically performed to determine current infection status in accordance with current CDC screening recommendations. Interpretive data was last revised on 2019. Blood 08/24/2021 1:59 PM CDT 08/25/2021 4:31 AM CDT Conrad Horan MD LAB MICROBIOLOGY - GENERAL OR DERABLES Final Result Performing Organization Address City/State/[facility] [place] Number [place] [address] [facility] Department [place] [address] from Last 3 Months or Most Recently Relevant to Health Maintenance Insurance MEDICARE MEDICARE MEDICARE [facility] MEDICARE ADVANTAGE
--- OUTSIDE RECORDS SUMMARY | 2025-01-20 00:21 | XMS_ITS | Clinical Summary ---
Author Organization [facility] Address [address] [place] [address] Care Team Providers Care Rack Puller Name Role Phone Prema Barragan MD Primary Care Provider Source Comments [facility],non-owned Affiliates and Associated Physician Practices is amultiple site organization consisting of ambulatory clinics and hospital sitesin [place], [place], [place] and [place]. This disclosure is being madepursuant to the Care Everywhere program and may not contain all information available regarding this patient. Last updated 18.[facility] Allergies Active Allergy Reactions Criticality Noted Date Comments Codeine Swelling 10/16/2017 Penicillins Urticaria Medium 10/16/2017 Social History Tobacco Use Types Packs/Day Years Used Date Smoking Tobacco: Never Assessed Comments No Sex and Gender Information Value Date Recorded Sex Assigned at Not on file Legal Sex Female 5:59 PM SCHEDULE CHECKER Gender Identity Not on file Sexual Orientation Not on file Plan of Treatment Health Maintenance Due Date Last Done Comments COLOGUARD (AGES 45-75) - COL ON CA SCREENING 1964 COLON MONITORING 1964 COLONOSCOPY - COLON CA SCREENING 1964 CT COLONOGRAPHY - COLON CA SCREENING 1964 Colorectal Cancer Screening 1964 FIT - COLON CA SCREENING 1964 FLEX SIG - COLON CA SCREENING 1964 LIPID TESTING 1964 MAMMOGRAM 1964 HIV SCREENING 1979 HEPATITIS C SCREENING 04/26/1982 DTAP/TDAP/TD VACCINES (1 - Tdap) 1983 PNEUMOCOCCAL VACCINE 50+ (1 of 1 - PCV) 2014 ZOSTER VACCINE (1 of 2) 2014 COVID-19 VACCINE (1 - 2023-2 5 season) 2024 DEPRESSION SCREENING 06/03/2024 INFLUENZA VACCINE (#1) 2025 Respiratory Syncytial Virus (RSV) Vaccine Pt: or over 60 yrs (1 - 1-dose 75+ series) 2039 HEPATITIS B VACCINE Aged Out No longe r eligible based on patient's age to complete this topic HIB VACCINE Aged Out No longer eligi ble based on patient's age to complete this topic HPV VACCINE Aged Out No longer eligi ble based on patient's age to complete this topic MENINGOCOCCAL (Group B) VACC INE SHARED DECISION-MAKING Aged Out No longer eligibl e based on patient's age to complete this topic MENINGOCOCCAL GROUPS A/C/Y/W VACCINE Aged Out No longer eligible b ased on patient's age to complete this topic Insurance MEDICARE MEDICAID - [place] MEDICARE Care Teams Rack Puller Relationship Specialty [place] [address] [place] [id number] PCP - General 05/13/17
--- OUTSIDE RECORDS SUMMARY | 2025-01-20 00:21 | XMS_ITS | Clinical Summary ---
Author Organization [facility] Address [address] [place] [address] Phone Care Team Providers Care Starbucks Clerk Name Role Phone Unavailable Primary Care Provider Unavailabl e Allergies Active Allergy Reactions Criticality Noted Date Comments Alendronate Headache,Nausea and Vomiting Low 06/05/2024 Reaction: vomiting, headaches, Amitriptyline Other (See Comments) 06/05/2024 Reaction: change in mental status, delusion, Codeine Hives,Other (See Comments),Shortness of Breath/Wheezing,Swelling High 10/16/2017 Reaction: swollen tongue, rapid heartbet, , Gabapentin Confusion,Other (See Comments) High 01/21/2024 Reaction: memory loss, Penicillins Anaphylaxis,Other (S ee Comments),Shortness of Breath/Wheezing,Hives High 10/16/2017 Reaction: Anaphylaxis, , Medications clonazePAM (KlonoPIN) 1 mg tablet Take 1 mg by mouth 3 times daily as needed. Active albuterol sulfate HFA 90 mcg/actuation aerosol inhaler Take 2 Puffs by inhalation every 4 hours as needed for Shortness of Breath or Wheezing. Active ipratropium-alb uteroL (COMBIVENT RESPIMAT) 20-100 mcg/actuation Mist Take 1 Puff by inhalation every 6 hours. 2 Active guaiFENesin (ROBITUSSIN) 100 mg/5 mL solution 10 mL (200 mg) by NG Tube route every 4 hours. 1800 mL 5 Active HYDROcodone-radha taminophen (NORCO) 5-325 mg tabletIndicatio ns:Pneumonia of both lungs due to infectious organism, unspecified part of lung Take 1 Tablet by mouth every 4 hours as needed for Pain. Max Daily Amount: 6 Tablets 20 Tablet 5 Active Lidocaine 4 % Adhesive Patch, Medicated Apply on back 12 hours on 12 hours off 15 Patch 5 Active sennosides-docu sate sodium (SENNA-S) 8.6-50 mg tablet Take 2 Tablets by mouth 2 times daily. 120 Tablet 5 Active insulin lispro (HumaLOG,ADMELO G) 100 unit/mL pen syringe Inject 0-6 Units by subcutaneous injection every 4 hours. 15 mL 5 Active amLODIPine (NORVASC) 5 mg tablet Take 1 Tablet (5 mg) by mouth daily. 30 Tablet 1 5 Active acetaminophen (TYLENOL) 325 mg tablet Take 2 Tablets (650 mg) by mouth every 6 hours as needed for Other (See Comment) (See admin instructions). 30 Tablet 5 Active naloxone (NARCAN) 4 mg/spray [place], Non-Aerosol EMERGENCY USE ONLY: Administer 1 spray (4 mg) in one nostril one time. May repeat in alternating nostrils every 2-3 min until responsive or EMS arrives. 2 Each 3 5 Active Active Problems Problem Noted Date Diagnosed Date Pneumonia of both lungs due to infectious organi sm 06/13/2024 Acute pulmonary edema 06/13/2024 Bradycardia 06/13/2024 Hypophosphatemia 06/13/2024 Mobitz type 1 second degree atrioventricular blo ck 06/13/2024 Sinus bradycardia 06/13/2024 Prolonged Q-T interval on ECG 06/13/2024 Thrombocytopenia due to blood loss 06/05/2024 Gastrointestinal hemorrhage with hematemesis 08/2024 Altered mental status 06/04/2024 History of falling 06/04/2024 Abnormal CBC 06/04/2024 Pneumatosis coli 06/02/2024 Constipation 06/02/2024 Protein-calorie malnutrition, moderate Acute respiratory failure with hypoxia Bilateral pleural effusion 06/01/2024 Anasarca associated with disorder of kidney 05/04 Closed fracture of multiple pubic rami, right, initial encounter 05/31/2024 Lower abdominal pain, unspecified 05/31/2024 KAYKAY (acute kidney injury) 05/31/2024 At risk for malnutrition 05/31/2024 COPD without exacerbation 05/31/2024 Tobacco abuse 05/31/2024 Fall 05/31/2024 Bipolar affective disorder, current episode mixe d 05/31/2024 Transaminitis 05/31/2024 Coffee ground emesis 05/30/2024 Hematemesis 05/30/2024 Acute blood loss anemia 05/30/2024 Encounters Date Type Department Care Team Description 12/16/2024 External Device Data [facility] ABSTRACTION Provider, Abstract 12/15/2024 External Device Data [facility] ABSTRACTION Provider, Abstract 12/01/2024 External Device Data [facility] ABSTRACTION Provider, Abstract 11/18/2024 External Device Data [facility] ABSTRACTION Provider, Abstract 10/22/2024 External Device Data [facility] ABSTRACTION Provider, Abstract from Last 3 Months Family History Medical History Relation Name Comments Heart Disease Father Colon Cancer Neg Hx Esophageal Cancer Neg Hx Gastric Cancer Neg Hx Liver Cancer Neg Hx Relation Name Status Comments Father Mother Unknown Social History Tobacco Use Types Packs/Day Years Used Date Smoking Tobacco: Every Day Cigarettes Tobacco Cessation:Ready to Q uit: No; Counseling Given: Yes Alcohol Use Standard Drinks/Week Comments Not Currently 3 (1 standard drink = 0.6 oz pur e alcohol) Comments Unknown Sex and Gender Information Value Date Recorded Sex Assigned at Not on file Legal Sex Female 10:59 AM SNUFF DRIER Gender Identity Not on file Sexual Orientation Not on file Last Filed Vital Signs Vital Sign Reading Time Taken Comments Blood Pressure 150/90 06/19/2024 4:32 AM SNUFF DRIER Pulse 69 06/19/2024 4:32 AM SNUFF DRIER Temperature 36.2 C (97.2 F) 06/19/2024 4:32 AM SNUFF DRIER Respiratory Rate 18 06/18/2024 9:10 PM SNUFF DRIER Oxygen Saturation 93% 06/19/2024 4:32 AM SNUFF DRIER Inhaled Oxygen Concentration - - Weight 55 kg (121 lb 4.8 oz) 06/18/2024 9:00 AM SNUFF DRIER Height 165.1 cm (5' 5) 06/04/2024 3:32 PM SNUFF DRIER Body Mass Index 20.19 06/04/2024 3:32 PM SNUFF DRIER Plan of Treatment Health Maintenance Due Date Last Done Comments DTAP/TDAP/TD VACCINES (1 - Tdap) 1983 HPV/Cotest (21-29) 1985 CERVICAL CANCER SCREENING 1994 HPV/Cotest (30-65) 1994 PAP SMEAR 1994 COLORECTAL SCREENING 2009 FIT-DNA Q 3 years 2009 Flex Sig/CT Colonography Q 5 years 2009 ZOSTER VACCINE (1 of 2) 2014 BREAST CANCER SCREENING 10/16/2018 10/17/19 18, 10/16/2017, 04/23/2017 HEPATITIS B VACCINES (1 of 3 - Risk 3-dose series) 2024 RSV VACCINE (60+ or ) (1 - Risk 60-74 years 1-dose series) 2024 INFLUENZA VACCINE (#1) 2025 08/03/2020 Colorectal Cancer Screening 06/13/2025 FIT/FOBT Q 1 year 06/13/2025 06/13/2024, 06/09/2024 Procedures Procedure Name Priority Date/Time Associated Diagnosis Comments OCCULT BLOOD IMMUNOASSAY, COLORECTAL SCREEN Routine 06/13/2024 4:15 AM SNUFF DRIER Gastrointestinal hemorrhage with hematemesis from Last 3 Months or Most Recently Relevant to Health Maintenance Results * (ABNORMAL) OCCULT BLOOD IMMUNOASSAY, COLORECTAL SCREEN (06/13/2024 4:15 AM SNUFF DRIER) OCCULT BLOOD, STOOL Positive(A ) Negative 06/13/2024 4:31 AM SNUFF DRIER [facility] [employer] [facility] Stool STOOL SPECIMEN / Unknown Collection / Unknown 06/13/2024 4:15 AM SNUFF DRIER 06/13/2024 4:15 AM SNUFF DRIER us Homer Escoto DO BODY FLUIDS AND STO OLS Final Result [facility] [employer] [facility] CLIA# [id number] [place] [address] from Last 3 Months or Most Recently Relevant to Health Maintenance Insurance MEDICAID PENDING [facility] [id number] Advance Directives For more information, please contact: [phone] * Full Code (Latest Code Status on File) Date Activated Date Inactivated Comments 05/31/2024 8:26 PM 06/19/2024 2:03 PM * Default Full Code - Needs Discussion Date Activated Date Inactivated Comments 05/31/2024 6:46 PM 05/31/2024 8:26 PM
--- OUTSIDE RECORDS SUMMARY | 2025-01-20 00:21 | XMS_ITS | Encounter Summary ---
Author Organization [facility] Address [address] [place] [address] Care Team Providers Care Post Production Assistant Name Role Phone Unavailable Primary Care Provider Unavailabl e Reason for Visit * Reason Onset Date Comments Coffee ground emesis overnig ht with 2 point drop Hb 06/04/2024 LEFT SECURE EPIC CHAT / DR[facility] [employer] Very abnormal PBS with diffe rent forms, and immature wbc f 06/04/2024 SPOKE WITH JASMIN / DR. TAE SÁNCHEZ OFFICE Encounter Details Date Type Department Care Team (Late st Contact Info) Description 06/04/2024 Telephone [facility] Admitting [address] [place] [address] [place] [address] [facility] [address] [place] [address] Coffee ground emesis overnight with 2 point drop Hb (LEFT SECURE EPIC CHAT / DR[facility] [employer]); Very abnormal PBS with different forms, and immature wbc f (SPOKE WITH JASMIN / DR. DOWNS OFFICE) Social History Tobacco Use Types Packs/Day Years Used Date Smoking Tobacco: Every Day Cigarettes Alcohol Use Standard Drinks/Week Comments Not Currently 3 (1 standard drink = 0.6 oz pur e alcohol) Comments Unknown Sex and Gender Information Value Date Recorded Sex Assigned at Not on file Legal Sex Female 10:59 AM HEAD ATHLETIC TRAINER/STRENGTH COACH Gender Identity Not on file Sexual Orientation Not on file documented as of this encounter Plan of Treatment Not on file documented as of this encounter Visit Diagnoses Not on filedocumented in this encounter Additional Health Concerns Infection Onset Date Last Indicated Resolved Time R/O C. diff 06/09/2024 06/09/2024 06/09/2024 12:0 7 PM HEAD ATHLETIC TRAINER/STRENGTH COACH R/O Respiratory 06/11/2024 06/11/2024 06/11/2024 1 0:48 AM HEAD ATHLETIC TRAINER/STRENGTH COACH documented as of this encounter
--- OUTSIDE RECORDS SUMMARY | 2025-01-20 00:21 | XMS_ITS | Encounter Summary ---
Author Organization [facility] Address [address] [place] [address] Care Team Providers Care Casing Blower Name Role Phone Unavailable Primary Care Provider Unavailabl e Reason for Visit * Reason Onset Date Comments Chest pain 06/01/[address] Noriega's group Encounter Details Date Type Department Care Team (Late st Contact Info) Description 06/01/2024 Telephone [facility] [id number] [place] [address] Ryder Rogers MD [address] [place] [address] Chest pain (Epic secure chat to Dr. Noriega's group) Social History Tobacco Use Types Packs/Day Years Used Date Smoking Tobacco: Every Day Cigarettes Alcohol Use Standard Drinks/Week Comments Not Currently 3 (1 standard drink = 0.6 oz pur e alcohol) Comments Unknown Sex and Gender Information Value Date Recorded Sex Assigned at Not on file Legal Sex Female 10:59 AM [employer] Gender Identity Not on file Sexual Orientation Not on file documented as of this encounter Plan of Treatment Not on file documented as of this encounter Visit Diagnoses Not on filedocumented in this encounter Additional Health Concerns Infection Onset Date Last Indicated Resolved Time R/O C. diff 06/09/2024 06/09/2024 06/09/2024 12:0 7 PM [employer] R/O Respiratory 06/11/2024 06/11/2024 06/11/2024 1 0:48 AM PLAST[employer] documented as of this encounter
[2025-01-20] MEDS: RAPID SEQUENCE INTUBATION KIT 1 EACH (00:28)
[2025-01-20] MEDS: LACTATED RINGERS 1,000 ML 999 ML IV CONT (00:33)
[2025-01-20] MEDS: TUBING, BLOOD PLUM PUMP TUBING 1 EACH XX (00:46)
[2025-01-20] MEDS: TUBING, BLOOD SET 1 EACH XX (00:46)
[2025-01-20] MEDS: PANTOPRAZOLE SODIUM IV 40 MG VIAL IV PUSH ×2 (00:57→06:35)
[2025-01-20] MEDS: FENTANYL 2,500MCG/NS250ML(*CRX 2,500 MCG/250 ML BAG IV CONT (00:58)
[2025-01-20 00:59] LABS: Alanine Aminotransferase 123 U/L (6-35); Albumin Level 2.7 g/dL (3.5-5.1); Alkaline Phosphatase 96 U/L (38-126); Anion Gap 11 mmol/L (4-12); Aspartate Amino Transferase 56 U/L (14-36); Bilirubin,Total 1.8 mg/dL (0.2-1.3); Blood Urea Nitrogen 109 mg/dL (7-17); Calcium 7.2 mg/dL (8.4-10.2); Carbon Dioxide 26 mmol/L (22-30); Chloride 91 mmol/L (98-107); Estimated Glomerular Filt Rate 14; Glucose 116 mg/dL (65-110); Lipase 92 U/L (23-300); Magnesium 2.0 mg/dL (1.6-2.3); Potassium 2.6 mmol/L (3.4-5.0); Sodium 128 mmol/L (137-145); Total Protein 5.0 g/dL (6.3-8.2)
[2025-01-20 01:04] LABS: INR 1.4; Prothrombin Time 16.9 Seconds (11.1-14.7)
[2025-01-20 01:05] LABS: Partial Thromboplastin Time 26.7 Seconds (22.3-36.8)
[2025-01-20 01:13] LABS: Procalcitonin 1.2 ng/mL
[2025-01-20 01:14] LABS: Iron 32 ug/dL (37-170)
[2025-01-20 01:15] LABS: CRP 0.9 mg/dL (<1.0)
[2025-01-20 01:17] LABS: Hematocrit 22.8 % (37.0-47.0); Hemoglobin 7.0 g/dL (12.0-15.0); Immature Platelet Fraction Pct 3.1 % (0.9-11.2); Mean Corpuscular HGB Conc 30.7 g/dl (32-36); Mean Corpuscular Hemoglobin 27.3 pg (26-34); Mean Corpuscular Volume 89.1 fl (80-100); Platelet Count Result 105 k/mm3 (150-375); Red Blood Count 2.56 M/mm3 (4.2-5.4); White Blood Count 11.2 K/mm3 (4.5-10.0)
[2025-01-20 01:24] LABS: Percent Iron Saturation 10 % (20-50)
[2025-01-20] MEDS: MIDAZOLAM 100MG/NS 100ML(*CRX) 100 MG/100 ML BAG IV CONT (01:28)
[2025-01-20 01:29] LABS: Band Neutrophils Percent 1 % (0-6); Lymphocytes Absolute Manual 0.67 K/mm3 (1.1-4.5); Lymphocytes Percent Manual 6.0 % (18-44); Monocytes Absolute Manual 0.44 K/mm3 (0.1-0.90); Monocytes Percent Manual 4 % (3-9); Neutrophils Absolute Manual 10.08 K/mm3 (1.3-6.7); Neutrophils Percent Manual 89 % (46-73); Total Cells Counted 100
[2025-01-20 01:31] LABS: Anisocytosis 1+; Hypochromasia 2+; Poikilocytosis 1+; Schistocytes 1+
[2025-01-20 01:32] LABS: Ovalocytes 1+
[2025-01-20] MEDS: OCTREOTIDE ACETATE 50 MCG/ML VIAL IV PUSH (01:32)
[2025-01-20] MEDS: WATER IVPB (01:32)
[2025-01-20] MEDS: KCL IVPB (01:32)
[2025-01-20] MEDS: OCTREOTIDE ACETATE 500 MCG in SODIUM CHLORIDE 0.9% IV 99 ML 10 MCG IV CONT (01:49)
[2025-01-20] MEDS: Please enter patient height and weight for medication dosing 1 EACH XX (01:49)
--- NOTE | 2025-01-20 01:55 | PCRCNOTE ---
Dr South said to wait on the ABG due to pt getting a central line said they could call RT.
--- NOTE | 2025-01-20 02:10 | PC.NURSE ---
PT IN CT SCAN AT THIS TIME TRANSPORTED BY FAYE RN, AND RESPIRATORY THERAPIST. PT HAS 3 FAMILY MEMBERS WHO JUST ARRIVED, AND ARE WAITING FOR PT'S RETURN IN THE FAMILY SERVICES ROOM.
[2025-01-20 02:30] LABS: Cannabinoid Screen Urine Negative (Negative)
[2025-01-20] MEDS: PIPERACILLIN/TAZOBACTAM SOD 2.25 GM in SODIUM CHLORIDE 0.9% IV 50 ML 100 ML IVPB ×3 (03:19→23:59)
[2025-01-20] MEDS: VANCOMYCIN 500 MG/NS 100 ML 500 MG/100 ML BAG 100 MG IVPB (03:26)
--- NOTE | 2025-01-20 03:26 | PCRCNOTE ---
Rechecked with Dr South about ABG said not at this time.
[2025-01-20 03:46] LABS: Ammonia < 9 umol/L (9-30)
--- NOTE | 2025-01-20 04:33 | PC.NURSE ---
20mg etomidate given 0027 100 Succs given at [address] South intubated patient. 21 at the lip. Correct color noted on CO2 monitor. Bilateral breath sounds noted. 1L LR pressure bagged in at 0033 OG placed 60 at the lip 0040 1st unit of blood started at 0046 1st unit of blood completed 0115 2nd unit of blood started 0115 2nd unit of blood completed 0140 Patient cleaned and full bed change completed 0155 Temp sensing mcqueen completed [address] 0225
[2025-01-20 05:28] LABS: Alveolar/Arterial O2 Gradient 157.3 mmHg; Carboxyhemoglobin 0.2 % THb (0-2.0); Fractional Inspired Oxygen 100 %; HCO3 ABG 23.0 mEq/l (22.0-26.0); Methemoglobin ABG 0.0 %THb (0-1.5); Oxygen Content ABG 15.5 %vol (16.0-22.0); Oxygen Saturation ABG 99.9 % (95.0-100.0); PCO2 ABG 26.2 mmHg (35.0-45.0); PO2 ABG 529.5 mmHg (80.0-100.0); PO2 FiO2 Ratio Arterial Blood 5.30 %; Reduced Hemoglobin 0.2 %THb (0-5.0)
[2025-01-20 05:31] LABS: Modified Allen's Test Pass; Site Drawn RIGHT RADIAL
--- NOTE | 2025-01-20 05:31 | P.HP_ITS ---
H&P: HPI History of Present Illness Date/Time: 01/20/25 05:31 Chief Complaint: Vomiting blood Narrative: 60-year-old female with a past medical history of alcoholism, cirrhosis, chronic kidney disease stage IV, chronic encephalopathy, tobacco abuse and severe protein calorie malnutrition who presented to the ER via EMS for GI bleed. The patient had previously been evaluated in our ER after she had been hospitalized at another facility for pubic and sacral ala fracture in June. She was brought in at that time for possible GI bleed and was actually found to have scabs in her nose in blood under fingers at which time the patient hemoglobin was stable and was stable with no further bleeding in the ER NG at that time had been placed and was negative for blood. The patient was discharged back to the shelter facility. Evidently at some point the patient left the shelter facility against medical advice and returned home. The patient evidently began vomiting blood on the . EMS was called to the patient's house a total of 3 times. The 1st 2 times the patient was oriented and declined transfer to the hospital. The 3rd time the patient was confused and was not allowed to declined transfer. The patient was cachectic and acutely ill- appearing in the ER. Initially she was talking to staff but was a poor historian. She was having large amounts of hematemesis and was no longer protecting her airway and subsequently was intubated by the ER provider after the patient confirmed that she wanted to be a full code and to have everything done. The family arrived at the patient's bedside after the patient had already been intubated and had a central line placed in stated that the patient had been making statements that she wished to . The patient usually gets her care at [place]. Patient was initially placed a on ventilator settings a.c./CMV tidal volume 400 peep of 10 100% FiO2 and rate of 18. After the patient arrived to the ICU I adjusted ventilator settings to tidal volume of 350 and decrease the PEEP to 5 and repeat ABG ABG demonstrated respiratory alkalosis with a PO2 of 529.5 further adjustments were made. The patient was maintaining her blood pressure despite with continued bloody output from her NG. 2 units of O- negative were ordered in the ER and administered. Patient was also hypothermic and staff had difficulty obtaining a initial temperature a temp probe Mclean was placed and patient's temperature was 95?. Patient was started on octreotide drip in received IV push Protonix [address] of the chest abdomen pelvis demonstrated compression fracture T12, bilateral pleural effusions and left lower lobe atelectasis and pneumonia, cavitary nodule in the right lower lobe which could be infectious or inflammatory. Bilateral pleural effusions that on my review larger than her imaging in June as well. He also has a moderate abdominal pelvic ascites again worsened from prior imaging at my review. Circumferential wall thickening of the ascending colon without evidence of infection. Patient was started on empiric antibiotic therapy with Zosyn after blood cultures were obtained. Patient received 30 mL/kilos bolus Gastroenterolo gy and the drywall finishing foreman were consulted and the patient was admitted in the setting. At the time of my evaluation the patient had Na irregularity of her left wrist. On further examination the patient had palpable movement of bony fragments. But no obvious bruising are evidence of acute injury at that location. Stat x-ray of the wrist was obtained. Bony edges appeared to be smooth which could of been chronic but is patient is unable to provide information I have splinted the wrist until stat read can read the x-ray or the patient is evaluated by Orthopedic surgery. The patient does have a acetabular fracture as well but is not stable enough for surgical intervention. A consult was placed for the orthopedic surgeon with orthopedic surgeon was not contacted since the patient will not be going for acute surgical intervention or treatment for this injury. Review of Systems Review of Systems: ROS unobtainable: Yes unobtainable due to endotracheal tube PMFSH Past Medical History Medical History CKD (chronic kidney disease) stage 4, GFR 15-29 ml/min Severe protein-calorie malnutrition Alcoholic cirrhosis of liver with ascites Alcohol abuse Surgical History Surgical History (Updated 01/20/25 @ 06:43 by Naila Torres DO) Status post open reduction with internal fixation of fracture Right femur Family History Family History (Updated 01/20/25 @ 06:43 by Naila Torres DO) Other Unknown family medical history Social History Social History (Updated 01/20/25 @ 06:44 by Naila Torres DO) Social History: Patient has a history of chronic alcohol abuse. Her urine drug screen was also positive for amphetamines. Patient has dark tobacco staining to her fingers. Smoking packs per day: 1 Smoking cigarettes per day: 20.0 Years smoked: 40 Smoking pack-years: 40.00 Smoking status: Current every day smoker Tobacco type: cigarettes Alcohol intake: current Substance use: unknown Spiritual care concerns: No Meds Home Medications and Allergies Home Medications ?Medication ?Instructions ?Recorded ?Confirmed ?Type clonazepam 1 mg tablet 1 mg PO Q8H PRN anxiety 01/0201/20/25 History diazepam 10 mg tablet 10 mg PO DAILY 01/20/2501/02 History Allergies Allergy/AdvReac Type Severity Reaction Status Date / Time codeine Allergy Mild Verified 11/23/09 20:50 gabapentin Allergy Mild Verified 11/23/09 20:50 Penicillins Allergy Mild Verified 11/23/09 20:50 Vital Signs Vital Signs - 24 hr 01/20/25 00:30 01/20/25 00:31 01/20/25 00:45 Temperature Pulse Rate 86 81 75 Respiratory Rate 16 14 16 Blood Pressure 110/85 130/100 H 183/123 H Pulse Oximetry 92 92 75 L Oxygen Delivery Nasal Cannula Oxygen Flow Rate 3 Fraction of Inspired Oxygen 01/20/25 00:52 01/20/25 00:55 01/20/25 00:57 Temperature Pulse Rate 81 76 81 Respiratory Rate 16 Blood Pressure 206/144 H Pulse Oximetry 94 75 L 100 Oxygen Delivery Mechanical Ventilation Mechanical Ventilation Oxygen Flow Rate Fraction of Inspired Oxygen 100 100 01/20/25 00:58 01/20/25 01:00 01/20/25 01:15 Temperature Pulse Rate 82 82 73 Respiratory Rate 16 16 16 Blood Pressure 213/140 H 143/102 H Pulse Oximetry 81 L 73 L Oxygen Delivery Oxygen Flow Rate Fraction of Inspired Oxygen 01/20/25 01:27 01/20/25 01:28 01/20/25 01:45 Temperature Pulse Rate 69 69 67 Respiratory Rate 16 16 14 Blood Pressure 167/100 H 140/116 H Pulse Oximetry 91 93 Oxygen Delivery Oxygen Flow Rate Fraction of Inspired Oxygen 01/20/25 02:00 01/20/25 02:30 01/20/25 02:38 Temperature Pulse Rate 68 64 65 Respiratory Rate 16 16 Blood Pressure 148/11 H 134/104 H Pulse Oximetry 94 100 95 Oxygen Delivery Mechanical Ventilation Oxygen Flow Rate Fraction of Inspired Oxygen 100 01/20/25 02:45 01/20/25 03:00 01/20/25 03:30 Temperature 95 F L 95 F L Pulse Rate 61 63 65 Respiratory Rate 16 16 16 Blood Pressure 141/100 H 120/93 H 103/85 Pulse Oximetry 100 99 100 Oxygen Delivery Oxygen Flow Rate Fraction of Inspired Oxygen 01/20/25 03:45 01/20/25 04:29 01/20/25 04:47 Temperature 95 F L 95 F L Pulse Rate 66 70 65 Respiratory Rate 16 18 Blood Pressure 107/85 106/86 Pulse Oximetry 100 95 99 Oxygen Delivery Mechanical Ventilation Oxygen Flow Rate Fraction of Inspired Oxygen 100 01/20/25 04:49 Temperature 95 F L Pulse Rate 67 Respiratory Rate 16 Blood Pressure 109/84 Pulse Oximetry 100 Oxygen Delivery Oxygen Flow Rate Fraction of Inspired Oxygen H&P: Results Labs Labs: Short CBC 01/20/25 Range/Units 00:30 WBC 11.2 H (4.5-10.0) K/mm3 Hgb 7.0 L (12.0-15.0) g/dL Hct 22.8 L (37.0-47.0) % Plt Count 105 L D (150-375) k/mm3 BMP 01/20/25 00:30 Sodium 128 L Potassium 2.6 L* Chloride 91 L Carbon Dioxide 26 BUN 109 H* D Creatinine 3.43 H Glucose 116 H Calcium 7.2 L Liver Function 01/20/25 Range/Units 00:30 Total Bilirubin 1.8 H (0.2-1.3) mg/dL AST 56 H (14-36) U/L ALT 123 H (6-35) U/L Alkaline Phosphatase 96 (38-126) U/L Albumin 2.7 L (3.5-5.1) g/dL Assessment and Plan Assessment and plan (1) Acute upper GI bleeding: Code(s): K92.2 - Gastrointestinal hemorrhage, unspecified Status: Acute (2) Alcoholic cirrhosis of liver with ascites: Code(s): K70.31 - Alcoholic cirrhosis of liver with ascites Status: Acute (3) Acute hypoxic respiratory failure: Code(s): J96.01 - Acute respiratory failure with hypoxia Status: Acute (4) Acute kidney injury superimposed on stage 4 chronic kidney disease: Code(s): N17.9 - Acute kidney failure, unspecified; N18.4 - Chronic kidney disease, stage 4 (severe) Status: Acute (5) Alcohol abuse: Code(s): F10.10 - Alcohol abuse, uncomplicated Status: Acute (6) Transaminitis: Code(s): R74.01 - Elevation of levels of liver transaminase levels Status: Acute (7) Hypokalemia: Code(s): E87.6 - Hypokalemia Status: Acute (8) Severe protein-calorie malnutrition: Code(s): E43 - Unspecified severe protein-calorie malnutrition Status: Acute (9) Distal radial fracture: Qualifiers: Fracture type: closed Fracture morphology: unspecified fracture morphology Laterality: left Fracture healing: with nonunion Encounter type: subsequent encounter Qualified Code(s): S52.502K - Unspecified fracture of the lower end of left radius, subsequent encounter for closed fracture with nonunion Code(s): S52.509A - Unspecified fracture of the lower end of unspecified radius, initial encounter for closed fracture Status: Acute (10) Closed fracture of pubic ramus: Qualifiers: Encounter type: initial encounter Laterality: right Qualified Code(s): S32.591A - Other specified fracture of right pubis, initial encounter for closed fracture Code(s): S32.599A - Other specified fracture of unspecified pubis, initial encounter for closed fracture Status: Acute (11) Acetabular fracture: Qualifiers: Encounter type: initial encounter Sublocation of acetabulum: unspecified portion of acetabulum Fracture type: closed Laterality: right Fracture alignment: nondisplaced Qualified Code(s): S32.401A - Unspecified fracture of right acetabulum, initial encounter for closed fracture Code(s): S32.409A - Unspecified fracture of unspecified acetabulum, initial encounter for closed fracture Status: Acute Plan Patient presented with acute upper GI bleed with 1 L of gastric output in the ER an additional 150 mL output on arrival to the ICU. The patient was started on octreotide drip in the ER and this has been continued. He was given 1 dose of IV push Protonix in the ER will given additional [address] patient on a Protonix drip. Patient did receive 2 units packed red blood cells. Repeat hemoglobin up to 9. Patient's blood pressures have remained stable. Will check D-dimer and fibrinogen. The rest the patient's coag panel was not all that remarkable. I suspect the patient likely has some underlying varices versus gastric ulcer given her chronic continued heavy alcohol use and smoking history. The patient had acute hypoxic respiratory failure due to the amount of hematemesis that was occurring. He has been intubated. Ventilator settings have been adjusted whole drop tidal volume further to talk to 320 and will decrease rate to 14 in decrease FiO2 to 40% peep is already been decreased down to 5. Repeat chest x-ray was performed due to decreased breath sounds at the left base to rule out pneumothorax. No pneumothorax seen the time of my review. Radiologic interpretation pending. The patient does have acute kidney injury on chronic kidney disease due to sepsis and acute GI bleed. The patient received 30 mL/kilos fluid resuscitation. Will continue maintenance IV fluids. Will renally adjust antibiotic therapy and continue Zosyn. Blood cultures have been obtained and are pending. Patient does have severe hypokalemia with only minimal improvement in potassium after 40 mEq rider administered. I do not think the patient's GI tract will absorb much in the way of potassium supplements given the amount of GI bleeding. Will given additional 40 mEq potassium chloride rider. Patient's magnesium and phosphorus levels were within normal limits. Patient did have hypocalcemia but calcium corrected to almost normal with adjustments for albumin. Will give 1 g calcium gluconate and monitor. The patient D-dimer and fibrinogen came back with low fibrinogen and elevated D- dimer prior to me completing this documentation subsequently ordered a unit of cryoprecipitate. A stat PT PTT and INR have been added Patient did have some mild deviation of the right eye but pupils were equal. Given the patient has an acetabular fracture of indeterminate age and distal radial fracture will obtain CT of the head was obtained to rule out intercranial process with chronic changes noted. An order was placed for orthopedic surgery consult but the physician was not contacted given that the patient is not clinically stable to go for surgical procedure in will not need immediate surgery. 60 minute spent in critical care activities. Due to a high probability of clinically significant, life threatening deterioration, the patient required my highest level of preparedness to intervene emergently and I personally spent this critical care time directly and personally managing the patient. This critical care time included obtaining a history; examining the patient; pulse oximetry; ordering and review of studies; arranging urgent treatment with development of a management plan; evaluation of patient's response to treatment; frequent reassessment; and discussions with other providers. It was exclusive of separately billable procedures and treating other patients and teaching time. Please see Assessment and Plan section and the rest of the note for further information on patient assessment and treatment. Quality VTE Prophylaxis VTE prophylaxis: mechanical ordered (SCDs) Hospitalist MIPS Advance Care Plan I have confirmed that the patient's Advanced Care Plan is present, code status is documented, or surrogate decision maker is listed in patient medical record.: Yes Medication Reconciliation I have utilized all available resources to obtain, update and review the patients current medications (includes all prescriptions, OTC, herbals, cannabis, and nutritional supplements).: Yes
[2025-01-20 05:34] LABS: Hematocrit 27.1 % (37.0-47.0); Hemoglobin 9.1 g/dL (12.0-15.0); Immature Granulocyte Percent A 1.1 % (0-0.5); Immature Platelet Fraction Pct 3.2 % (0.9-11.2); Lymphocytes Absolute Auto 0.95 K/mm3 (0.9-3.2); Mean Corpuscular HGB Conc 33.6 g/dl (32-36); Mean Corpuscular Hemoglobin 29.2 pg (26-34); Mean Corpuscular Volume 86.9 fl (80-100); Nucleated Red Blood Cells Absolute Auto 0.130 K/mm3 (0.0-0.012); Nucleated Red Blood Cells Perc 1.4 % (0.0-0.2); Platelet Count Result 59 k/mm3 (150-375); Red Blood Count 3.12 M/mm3 (4.2-5.4); White Blood Count 9.0 K/mm3 (4.5-10.0)
[2025-01-20 06:01] LABS: Fibrinogen 111 mg/dl (215-510)
[2025-01-20 06:05] LABS: Alanine Aminotransferase 95 U/L (6-35); Albumin Level 2.1 g/dL (3.5-5.1); Alkaline Phosphatase 81 U/L (38-126); Anion Gap 7 mmol/L (4-12); Aspartate Amino Transferase 43 U/L (14-36); Bilirubin,Total 3.2 mg/dL (0.2-1.3); Blood Urea Nitrogen 108 mg/dL (7-17); Calcium 6.9 mg/dL (8.4-10.2); Carbon Dioxide 25 mmol/L (22-30); Chloride 95 mmol/L (98-107); Estimated CRCL calculation 12 ml/min; Estimated Glomerular Filt Rate 17; Glucose 97 mg/dL (65-110); Potassium 2.8 mmol/L (3.4-5.0); Sodium 127 mmol/L (137-145); Total Protein 4.0 g/dL (6.3-8.2)
[2025-01-20 06:12] LABS: MRSA (PCR) DETECTED (NOT DETECTE)
[2025-01-20] MEDS: PANTOPRAZOLE SODIUM IV 80 MG in SODIUM CHLORIDE 0.9% IV 500 ML 50 MG IV CONT ×2 (06:35→16:58)
[2025-01-20] MEDS: CENTRAL LINE FLUSH 10 ML IV PUSH ×3 (06:36→22:36)
[2025-01-20 06:45] LABS: Hypochromasia 1+
[2025-01-20 06:46] LABS: Burr Cells Occasional; Schistocytes None Seen
[2025-01-20 06:47] LABS: Anisocytosis Occasional
[2025-01-20 06:49] LABS: Procalcitonin 1.5 ng/mL
[2025-01-20 07:16] LABS: INR 1.4; Prothrombin Time 17.2 Seconds (11.1-14.7)
[2025-01-20] MEDS: CALCIUM GLUC 1,000 MG/NS 50 ML 1,000 MG/50 ML BAG 100 MG IVPB (07:58)
[2025-01-20] MEDS: IRON SUCROSE COMPLEX 400 MG, IRON SUCROSE COMPLEX 100 MG in SODIUM CHLORIDE 0.9% IV 250 ML 78.57 MG IVPB (08:07)
--- NOTE | 2025-01-20 08:28 | WPDCNINT ---
Assessment and Plan Assessment and plan (1) Alcohol abuse: Code(s): F10.10 - Alcohol abuse, uncomplicated Status: Acute Assessment and Plan: History of alcohol abuse. At this time patient is sedated with Versed and fentanyl. I will order thiamine and folic acid (2) Severe protein-calorie malnutrition: Code(s): E43 - Unspecified severe protein-calorie malnutrition Status: Acute Assessment and Plan: Appears well nourished and cachectic. Currently NPO due to GI bleed. Will start tube feeding depending on EGD results (3) Acute upper GI bleeding: Code(s): K92.2 - Gastrointestinal hemorrhage, unspecified Status: Acute Assessment and Plan: Acute upper GI bleed which could be either variceal versus peptic ulcer disease Status post transfusion of 2 units PRBC Coagulopathy is being corrected Monitor hemoglobin and transfuse additional PRBC if needed IV Protonix and octreotide infusions GI consulted and plan for EGD today Serial hemoglobin monitoring (4) Transaminitis: Code(s): R74.01 - Elevation of levels of liver transaminase levels Status: Acute Assessment and Plan: AST and ALT mildly elevated likely consistent with alcoholic liver disease. Will also check while hepatitis panel (5) Alcoholic cirrhosis of liver with ascites: Code(s): K70.31 - Alcoholic cirrhosis of liver with ascites Status: Acute Assessment and Plan: Patient has cirrhosis from alcohol liver disease with CT scan showing ascites (6) Acute kidney injury superimposed on stage 4 chronic kidney disease: Code(s): N17.9 - Acute kidney failure, unspecified; N18.4 - Chronic kidney disease, stage 4 (severe) Status: Acute Assessment and Plan: Baseline creatinine unknown. Will obtain records from [facility]. Continue IV fluids Electrolyte replacement Monitor urine output electrolytes and creatinine CT scans not show any obstruction or stone Consult nephrology (7) Distal radial fracture: Qualifiers: Encounter type: subsequent encounter Fracture type: closed Fracture morphology: unspecified fracture morphology Laterality: left Fracture healing: with nonunion Qualified Code(s): S52.502K - Unspecified fracture of the lower end of left radius, subsequent encounter for closed fracture with nonunion Code(s): S52.509A - Unspecified fracture of the lower end of unspecified radius, initial encounter for closed fracture Status: Acute Assessment and Plan: Currently in splint. Orthopedics consulted (8) Acetabular fracture: Qualifiers: Encounter type: initial encounter Fracture alignment: nondisplaced Fracture type: closed Laterality: right Sublocation of acetabulum: unspecified portion of acetabulum Qualified Code(s): S32.401A - Unspecified fracture of right acetabulum, initial encounter for closed fracture Code(s): S32.409A - Unspecified fracture of unspecified acetabulum, initial encounter for closed fracture Status: Acute Assessment and Plan: Orthopedics consulted. Obtain records from [facility] (9) Acute hypoxic respiratory failure: Code(s): J96.01 - Acute respiratory failure with hypoxia Status: Acute Assessment and Plan: Acute respiratory failure secondary to aspiration pneumonia pleural effusion upper GI bleed with underlying COPD Ventilator settings reviewed patient is on CMV at 320, 40% FiO2, rate of 14 and peep of 5 Imaging reviewed Repeat ABG Will order bronchodilator Weaning will depend on improvement and stabilization of other issues (10) Coagulopathy: Code(s): D68.9 - Coagulation defect, unspecified Status: Acute Assessment and Plan: Coagulopathy secondary to cirrhosis and sepsis Patient is receiving cryo and platelets. Will recheck coags and CBC this afternoon (11) Sepsis: Code(s): A41.9 - Sepsis, unspecified organism Status: Acute Assessment and Plan: Sepsis likely secondary to pneumonia which could be aspiration Blood cultures ordered On IV Zosyn Check UA and micro to evaluate for UTI (12) Anemia: Code(s): D64.9 - Anemia, unspecified Status: Acute Assessment and Plan: Likely multifactorial anemia from iron deficiency and anemia of chronic kidney disease along with acute blood loss Patient receiving iron And she has received 2 units of PRBC Monitor and transfuse additional if needed Management of GI bleeding as above Consult nephrology for Neupogen (13) Thrombocytopenia: Code(s): D69.6 - Thrombocytopenia, unspecified Status: Acute Assessment and Plan: Thrombocytopenia likely combination of sepsis and cirrhosis. Platelet transfusion is ordered. Will repeat CBC later this afternoon hold any anticoagulation Plan DVT prophylaxis -SCDs Stress ulcer prophylaxis -Protonix infusion Nutrition - npo Code Status - Full Code Total Critical Care Time - 45 minutes Due to a high probability of clinically significant, life threatening deterioration, the patient required my highest level of preparedness to intervene emergently and I personally spent this critical care time directly and personally managing the patient. This critical care time included obtaining a history; examining the patient; pulse oximetry; ordering and review of studies; arranging urgent treatment with development of a management plan; evaluation of patient's response to treatment; frequent reassessment; and discussions with other providers. It was exclusive of separately billable procedures and treating other patients and teaching time. Please see Assessment and Plan section and the rest of the note for further information on patient assessment and treatment Dental Director Consult Note Consult date: 01/20/25 Reason for consult: Acute respiratory failure, upper GI bleed HPI: Jaci Lee is a 59 year old female with past medical history of alcohol abuse, cirrhosis, chronic kidney disease, chronic encephalopathy, tobacco abuse, COPD, severe protein calorie malnutrition who usually receives her care at [facility] was brought by EMS to [place] [facility] yesterday with GI bleed. As per reports patient was recently in senior care facility where she left against medical advice and went home and had multiple episodes of vomiting blood. Once she arrived in the ER the vomiting of dark bloody vomitus was seen by the staff. Patient was confused and was intubated for airway protection. A central line was placed in right IJ. Patient was given 2 units of O-negative blood. Patient was started on Protonix and octreotide infusions. GI was consulted overnight. His CT scan of chest abdomen pelvis was done with report as below. Patient was started on antibiotics. Patient was also given IV fluids. Patient did not require vasopressors. Patient had recently sustained fracture of the right hip and Orthopedics was consulted. This morning when I evaluated the patient she is intubated sedated and unable to provide any meaningful history she opens eyes on painful stimuli. She is on ventilator IV fluids Protonix octreotide and has received blood. Unable to obtain any additional history or review of systems. No family at bedside. Review of Systems Review of Systems: ROS unobtainable: Yes unobtainable due to endotracheal tube, unobtainable due to medical condition and unobtainable due to mental status PMFSH Past Medical History Medical History CKD (chronic kidney disease) stage 4, GFR 15-29 ml/min Severe protein-calorie malnutrition Alcoholic cirrhosis of liver with ascites Alcohol abuse Surgical History Surgical History (Updated 01/20/25 @ 06:43 by Naila Torres DO) Status post open reduction with internal fixation of fracture Right femur Family History Family History (Updated 01/20/25 @ 06:43 by Naila Torres DO) Other Unknown family medical history Social History Social History (Updated 01/20/25 @ 06:44 by Naila Torres DO) Social History: Patient has a history of chronic alcohol abuse. Her urine drug screen was also positive for amphetamines. Patient has dark tobacco staining to her fingers. Smoking packs per day: 1 Smoking cigarettes per day: 20.0 Years smoked: 40 Smoking pack-years: 40.00 Smoking status: Current every day smoker Tobacco type: cigarettes Alcohol intake: current Substance use: unknown Spiritual care concerns: No Meds Home Medications and Allergies Home Medications ?Medication ?Instructions ?Recorded ?Confirmed ?Type clonazepam 1 mg tablet 1 mg PO Q8H PRN anxiety 01/20/25 01/20/25 History diazepam 10 mg tablet 10 mg PO DAILY 01/20/25 01/20/25 History Allergies Allergy/AdvReac Type Severity Reaction Status Date / Time codeine Allergy Mild Verified 11/23/09 20:50 gabapentin Allergy Mild Verified 11/23/09 20:50 Penicillins Allergy Mild Verified 01/20/25 07:51 Vital Signs Vital Signs - 24 hr 01/20/25 00:30 01/20/25 00:31 01/20/25 00:45 Temperature Pulse Rate 86 81 75 Respiratory Rate 16 14 16 Blood Pressure 110/85 130/100 H 183/123 H Pulse Oximetry 92 92 75 L Oxygen Delivery Nasal Cannula Oxygen Flow Rate 3 Fraction of Inspired Oxygen 01/20/25 00:52 01/20/25 00:55 01/20/25 00:57 Temperature Pulse Rate 81 76 81 Respiratory Rate 16 Blood Pressure 206/144 H Pulse Oximetry 94 75 L 100 Oxygen Delivery Mechanical Ventilation Mechanical Ventilation Oxygen Flow Rate Fraction of Inspired Oxygen 100 100 01/20/25 00:58 01/20/25 01:00 01/20/25 01:15 Temperature Pulse Rate 82 82 73 Respiratory Rate 16 16 16 Blood Pressure 213/140 H 143/102 H Pulse Oximetry 81 L 73 L Oxygen Delivery Oxygen Flow Rate Fraction of Inspired Oxygen 01/20/25 01:27 01/20/25 01:28 01/20/25 01:45 Temperature Pulse Rate 69 69 67 Respiratory Rate 16 16 14 Blood Pressure 167/100 H 140/116 H Pulse Oximetry 91 93 Oxygen Delivery Oxygen Flow Rate Fraction of Inspired Oxygen 01/20/25 02:00 01/20/25 02:30 01/20/25 02:38 Temperature Pulse Rate 68 64 65 Respiratory Rate 16 16 Blood Pressure 148/11 H 134/104 H Pulse Oximetry 94 100 95 Oxygen Delivery Mechanical Ventilation Oxygen Flow Rate Fraction of Inspired Oxygen 100 01/20/25 02:45 01/20/25 03:00 01/20/25 03:30 Temperature 35 C L 35 C L Pulse Rate 61 63 65 Respiratory Rate 16 16 16 Blood Pressure 141/100 H 120/93 H 103/85 Pulse Oximetry 100 99 100 Oxygen Delivery Oxygen Flow Rate Fraction of Inspired Oxygen 01/20/25 03:45 01/20/25 04:29 01/20/25 04:30 Temperature 35 C L 35.5 C L Pulse Rate 66 70 70 Respiratory Rate 16 16 Blood Pressure 107/85 102/84 Pulse Oximetry 100 95 100 Oxygen Delivery Mechanical Ventilation Oxygen Flow Rate Fraction of Inspired Oxygen 100 01/20/25 04:47 01/20/25 04:49 01/20/25 06:00 Temperature 35 C L 35 C L Pulse Rate 65 67 67 Respiratory Rate 18 16 Blood Pressure 106/86 109/84 Pulse Oximetry 99 100 Oxygen Delivery Oxygen Flow Rate Fraction of Inspired Oxygen 01/20/25 06:00 01/20/25 06:00 01/20/25 06:00 Temperature 35.9 C L Pulse Rate 71 74 77 Respiratory Rate 16 16 16 Blood Pressure 111/93 H Pulse Oximetry 99 Oxygen Delivery Oxygen Flow Rate Fraction of Inspired Oxygen 01/20/25 08:00 01/20/25 08:13 Temperature 35.9 C L Pulse Rate 70 70 Respiratory Rate 14 Blood Pressure 118/97 H Pulse Oximetry 100 100 Oxygen Delivery Mechanical Ventilation Oxygen Flow Rate Fraction of Inspired Oxygen 40 Exam Narrative: General: Pt is cachectic old female who looks much older than her age. She is Sedated, intubated and on mechanical ventilation Lungs/Chest: Trachea central Coarse BS B/L, No crackles or wheezing. Overall decreased air movement throughout lungs with barrel chest Cardiac: RRR. Normal S1 S2. No murmurs Circulation: Pedal pulses are intact and symmetrical. Abdomen: Decreased bowel sounds.. Soft. NT. ND. Extremities: No clubbing, cyanosis or edema. Feet are cold : Mclean in place Neurologic: Unable to assess due to sedation. She tries to open her eyes on painful stimuli PERRL Skin: Petechia on the chest Results Labs 01/20/25 05:17 01/20/25 05:17 Labs: Impressions Abdomen X-Ray 01/20/25 05:42 Impression: NG tube in satisfactory position. Small left pleural effusion. Chest X-Ray 01/20/25 05:43 Impression: Small left pleural effusion with basilar atelectasis versus pneumonia. Correlate clinically. Support tubes, as above. Chest/Abdomen/Pelvis CT 01/20/25 05:48 Impression: Moderate to large left pleural effusion with extensive left lower lobe atelectasis. Small right pleural effusion. 9 mm spiculated nodule in the right lower lobe, as detailed above, indeterminate. CT scan in 3 months advised. Consider PET/CT or attempted tissue sampling as indicated. Moderate emphysema. No definite evidence for GI bleed, but evaluation is limited without IV contrast and with oral contrast on board. Consider follow-up CT angiogram of the bowel to further evaluate for GI bleed, as indicated. Moderate abdominopelvic ascites. T12 compression fracture, somewhat age indeterminate, but new since 06/20/2024. Fractures of the right anterior acetabulum at the junction of the right superior pubic ramus and of the right inferior pubic ramus, acute to subacute in nature. Chest X-Ray 01/20/25 06:12 Impression: Small left pleural effusion with left basilar atelectasis versus pneumonia. COPD. Support tubes, as above. Head CT 01/20/25 06:13 Impression: No intracranial hemorrhage, mass, or acute infarct. Atrophy and chronic white matter changes, as above. Wrist X-Ray 01/20/25 06:13 Impression: Probable chronic fracture deformities of the distal radius and ulnar styloid process, as detailed above. No definite acute fracture. Short CBC 01/20/25 01/20/25 Range/Units 00:30 05:17 WBC 11.2 H 9.0 (4.5-10.0) K/mm3 Hgb 7.0 L 9.1 L (12.0-15.0) g/dL Hct 22.8 L 27.1 L (37.0-47.0) % Plt Count 105 L D 59 L (150-375) k/mm3 BMP 01/20/25 01/20/25 00:30 05:17 Sodium 128 L 127 L Potassium 2.6 L* 2.8 L* Chloride 91 L 95 L Carbon Dioxide 26 25 BUN 109 H* D 108 H* Creatinine 3.43 H 2.90 H Glucose 116 H 97 Calcium 7.2 L 6.9 L Liver Function 01/20/25 01/20/25 Range/Units 00:30 05:17 Total Bilirubin 1.8 H 3.2 H (0.2-1.3) mg/dL AST 56 H 43 H (14-36) U/L ALT 123 H 95 H (6-35) U/L Alkaline Phosphatase 96 81 (38-126) U/L Albumin 2.7 L 2.1 L (3.5-5.1) g/dL Quality VTE Prophylaxis VTE prophylaxis: mechanical ordered Hospitalist MIPS Advance Care Plan I have confirmed that the patient's Advanced Care Plan is present, code status is documented, or surrogate decision maker is listed in patient medical record.: Yes Medication Reconciliation I have utilized all available resources to obtain, update and review the patients current medications (includes all prescriptions, OTC, herbals, cannabis, and nutritional supplements).: Yes
[2025-01-20 08:30] LABS: Partial Thromboplastin Time 34.6 Seconds (22.3-36.8)
[2025-01-20 08:57] LABS: Add Urine Microscopic? YES; Appearance Urine Clear (Clear); Glucose Urine UA Negative (Negative); Leukocyte Esterase Ur 1+ LEU/UL (Negative); Need Manual Microscopic Reviewed; Nitrate Urine Negative (Negative); Specific Grav Ur 1.015 (1.001-1.035)
[2025-01-20 09:27] LABS: Fractional Inspired Oxygen 40 %; HCO3 ABG 24.7 mEq/l (22.0-26.0); PCO2 ABG 42.4 mmHg (35.0-45.0)
[2025-01-20] MEDS: THIAMINE HCL 200 MG/2 ML VIAL 100 MG IV PUSH (09:28)
[2025-01-20] MEDS: FOLIC ACID 1 MG/0.2 ML INJ IV PUSH (09:28)
[2025-01-20 09:29] LABS: PO2 ABG < 27.0 mmHg (80.0-100.0)
[2025-01-20] MEDS: MUPIROCIN 2% OINT 22 GM TUBE 1 APPLIC EACH NARE ×2 (09:29→22:36)
[2025-01-20 10:16] LABS: Arterial Blood Gas Tidal Volume 320 ml; Arterial Blood Gas Ventilator rate 14 /MIN
[2025-01-20 10:27] LABS: Hepatitis B Surface Antigen Negative (Negative)
[2025-01-20 10:33] LABS: HAV RESULT Negative (Negative); Hepatitis B Core IgM Result Negative (Negative)
[2025-01-20] MEDS: KCL 20 MEQ/D5/0.9% SOD CHL 1,000 ML 100 ML IV CONT (10:42)
[2025-01-20] MEDS: MIDAZOLAM HCL (*CRX) 2 MG/2 ML VIAL IV PUSH ×2 (12:14→13:06)
[2025-01-20] MEDS: ALBUMIN HUMAN 25% 25 GM/100 ML 100 ML IVPB ×3 (12:32→23:55)
--- NOTE | 2025-01-20 12:41 | P.CONGI_ITS ---
Assessment and Plan Assessment and plan (1) Acute upper GI bleeding: Code(s): K92.2 - Gastrointestinal hemorrhage, unspecified Status: Acute Assessment and Plan: will proceed with urgent EGD differential variceal bleeding, ulcer, esophagitis, etc on iv protonix, octreotide and antibiotics because history of cirrhosis (2) Sepsis: Code(s): A41.9 - Sepsis, unspecified organism Status: Acute Assessment and Plan: on abx by automobile sales representative (3) Alcoholic cirrhosis of liver with ascites: Code(s): K70.31 - Alcoholic cirrhosis of liver with ascites Status: Acute Assessment and Plan: per records meld score 23 ct scan no liver lesions also low platelets (4) Thrombocytopenia: Code(s): D69.6 - Thrombocytopenia, unspecified Status: Acute Assessment and Plan: probably from cirrhosis (5) Elevated liver enzymes: Code(s): R74.8 - Abnormal levels of other serum enzymes Status: Acute (6) Acute kidney injury superimposed on stage 4 chronic kidney disease: Code(s): N17.9 - Acute kidney failure, unspecified; N18.4 - Chronic kidney disease, stage 4 (severe) Status: Acute (7) Severe protein-calorie malnutrition: Code(s): E43 - Unspecified severe protein-calorie malnutrition Status: Acute (8) Closed fracture of pubic ramus: Qualifiers: Encounter type: initial encounter Laterality: right Qualified Code(s): S32.591A - Other specified fracture of right pubis, initial encounter for closed fracture Code(s): S32.599A - Other specified fracture of unspecified pubis, initial encounter for closed fracture Status: Acute (9) Acute hypoxic respiratory failure: Code(s): J96.01 - Acute respiratory failure with hypoxia Status: Acute Assessment and Plan: intubated by automobile sales representative GI Consult Note Consult date/time: 01/20/25 12:41 Reason for consult: gib, alcoholic cirrhosis, anemia HPI: Jaci Lee is a 59 year old female with past medical history of alcohol abuse, cirrhosis, chronic kidney disease, chronic encephalopathy, tobacco abuse, COPD, severe protein calorie malnutrition who usually receives her care at [facility] was brought by EMS to [facility] yesterday with GI bleed. No family members and she is currently intubated, history is obtained from records. As per reports patient was recently in snf facility where she left against medical advice and went home and had multiple episodes of vomiting blood. Patient was confused and was intubated for airway protection. A central line was placed in right IJ. Patient was given 2 units of O-negative blood. Patient was started on Protonix and octreotide infusions. Patient was started on antibiotics. Patient was also given IV fluids. Patient did not require vasopressors. Patient had recently sustained fracture of the right hip and Orthopedics was consulted. Review of Systems 2 Review of Systems: ROS unobtainable: Yes unobtainable due to endotracheal tube and unobtainable due to mental status PMFSH Past Medical History Medical History Elevated liver enzymes CKD (chronic kidney disease) stage 4, GFR 15-29 ml/min Severe protein-calorie malnutrition Alcoholic cirrhosis of liver with ascites Alcohol abuse Surgical History Surgical History (Updated 01/20/25 @ 06:43 by Naila Torres DO) Status post open reduction with internal fixation of fracture Right femur Family History Family History (Updated 01/20/25 @ 06:43 by Naila Torres DO) Other Unknown family medical history Social History Social History (Updated 01/20/25 @ 06:44 by Naila Torres DO) Social History: Patient has a history of chronic alcohol abuse. Her urine drug screen was also positive for amphetamines. Patient has dark tobacco staining to her fingers. Smoking packs per day: 1 Smoking cigarettes per day: 20.0 Years smoked: 40 Smoking pack-years: 40.00 Smoking status: Current every day smoker Tobacco type: cigarettes Alcohol intake: current Substance use: unknown Spiritual care concerns: No Meds Home Medications and Allergies Home Medications ?Medication ?Instructions ?Recorded ?Confirmed ?Type clonazepam 1 mg tablet 1 mg PO Q8H PRN anxiety 01/0201/20/25 History diazepam 10 mg tablet 10 mg PO DAILY 01/20/2501/02 History Allergies Allergy/AdvReac Type Severity Reaction Status Date / Time codeine Allergy Mild Verified 11/23/09 20:50 gabapentin Allergy Mild Verified 11/23/09 20:50 Penicillins Allergy Mild Verified 01/20/25 07:51 Vital Signs Vital Signs - 24 hr 01/20/25 00:30 01/20/25 00:31 01/20/25 00:45 Temperature Pulse Rate 86 81 75 Respiratory Rate 16 14 16 Blood Pressure 110/85 130/100 H 183/123 H Pulse Oximetry 92 92 75 L Oxygen Delivery Nasal Cannula Oxygen Flow Rate 3 Fraction of Inspired Oxygen 01/20/25 00:52 01/20/25 00:55 01/20/25 00:57 Temperature Pulse Rate 81 76 81 Respiratory Rate 16 Blood Pressure 206/144 H Pulse Oximetry 94 75 L 100 Oxygen Delivery Mechanical Ventilation Mechanical Ventilation Oxygen Flow Rate Fraction of Inspired Oxygen 100 100 01/20/25 00:58 01/20/25 01:00 01/20/25 01:15 Temperature Pulse Rate 82 82 73 Respiratory Rate 16 16 16 Blood Pressure 213/140 H 143/102 H Pulse Oximetry 81 L 73 L Oxygen Delivery Oxygen Flow Rate Fraction of Inspired Oxygen 01/20/25 01:27 01/20/25 01:28 01/20/25 01:45 Temperature Pulse Rate 69 69 67 Respiratory Rate 16 16 14 Blood Pressure 167/100 H 140/116 H Pulse Oximetry 91 93 Oxygen Delivery Oxygen Flow Rate Fraction of Inspired Oxygen 01/20/25 02:00 01/20/25 02:30 01/20/25 02:38 Temperature Pulse Rate 68 64 65 Respiratory Rate 16 16 Blood Pressure 148/11 H 134/104 H Pulse Oximetry 94 100 95 Oxygen Delivery Mechanical Ventilation Oxygen Flow Rate Fraction of Inspired Oxygen 100 01/20/25 02:45 01/20/25 03:00 01/20/25 03:30 Temperature 95 F L 95 F L Pulse Rate 61 63 65 Respiratory Rate 16 16 16 Blood Pressure 141/100 H 120/93 H 103/85 Pulse Oximetry 100 99 100 Oxygen Delivery Oxygen Flow Rate Fraction of Inspired Oxygen 01/20/25 03:45 01/20/25 04:29 01/20/25 04:30 Temperature 95 F L 95.9 F L Pulse Rate 66 70 70 Respiratory Rate 16 16 Blood Pressure 107/85 102/84 Pulse Oximetry 100 95 100 Oxygen Delivery Mechanical Ventilation Oxygen Flow Rate Fraction of Inspired Oxygen 100 01/20/25 04:47 01/20/25 04:49 01/20/25 06:00 Temperature 95 F L 95 F L Pulse Rate 65 67 67 Respiratory Rate 18 16 Blood Pressure 106/86 109/84 Pulse Oximetry 99 100 Oxygen Delivery Oxygen Flow Rate Fraction of Inspired Oxygen 01/20/25 06:00 01/20/25 06:00 01/20/25 06:00 Temperature 96.7 F L Pulse Rate 71 74 77 Respiratory Rate 16 16 16 Blood Pressure 111/93 H Pulse Oximetry 99 Oxygen Delivery Oxygen Flow Rate Fraction of Inspired Oxygen 01/20/25 08:00 01/20/25 08:00 01/20/25 08:00 Temperature 96.7 F L Pulse Rate 70 71 71 Respiratory Rate 14 14 14 Blood Pressure 118/97 H Pulse Oximetry 100 Oxygen Delivery Oxygen Flow Rate Fraction of Inspired Oxygen 01/20/25 08:00 01/20/25 08:13 01/20/25 09:20 Temperature 96.4 F L Pulse Rate 70 70 64 Respiratory Rate 14 14 Blood Pressure 118/97 H Pulse Oximetry 100 100 100 Oxygen Delivery Mechanical Ventilation Mechanical Ventilation Oxygen Flow Rate Fraction of Inspired Oxygen 40 40 01/20/25 09:35 01/20/25 09:42 01/20/25 09:57 Temperature 96.3 F L 96.3 F L Pulse Rate 61 64 62 Respiratory Rate 14 14 Blood Pressure 138/104 H 142/107 H Pulse Oximetry 100 100 100 Oxygen Delivery Mechanical Ventilation Oxygen Flow Rate Fraction of Inspired Oxygen 40 01/20/25 09:58 01/20/25 10:00 01/20/25 10:00 Temperature 96.1 F L Pulse Rate 61 61 61 Respiratory Rate 14 14 14 Blood Pressure 157/111 H Pulse Oximetry 100 Oxygen Delivery Oxygen Flow Rate Fraction of Inspired Oxygen 01/20/25 10:00 01/20/25 10:00 01/20/25 11:35 Temperature 96.1 F L 95.8 F L Pulse Rate 63 62 62 Respiratory Rate 14 14 Blood Pressure 154/111 H 154/108 H Pulse Oximetry 100 99 Oxygen Delivery Oxygen Flow Rate Fraction of Inspired Oxygen 01/20/25 12:00 01/20/25 12:05 01/20/25 12:08 Temperature 95.7 F L Pulse Rate 63 64 60 Respiratory Rate 14 15 14 Blood Pressure 152/105 H 152/105 H Pulse Oximetry 97 97 Oxygen Delivery BiPAP Oxygen Flow Rate Fraction of Inspired Oxygen Exam 2 Narrative: General: Pt is cachectic old female who looks much older than her age. She is Sedated, intubated and on mechanical ventilation Lungs/Chest: Trachea central Coarse BS B/L, No crackles or wheezing. Overall decreased air movement throughout lungs with barrel chest Cardiac: RRR. Normal S1 S2. No murmurs Circulation: Pedal pulses are intact and symmetrical. Abdomen: Decreased bowel sounds.. Soft. NT. ND. Extremities: No clubbing, cyanosis or edema. Feet are cold : Mclean in place Neurologic: Unable to assess due to sedation. She tries to open her eyes on painful stimuli PERRL Skin: Petechia on the chest Results Labs 01/20/25 05:17 01/20/25 05:17 Labs: Short CBC 01/20/25 01/20/25 Range/Units 00:30 05:17 WBC 11.2 H 9.0 (4.5-10.0) K/mm3 Hgb 7.0 L 9.1 L (12.0-15.0) g/dL Hct 22.8 L 27.1 L (37.0-47.0) % Plt Count 105 L D 59 L (150-375) k/mm3 BMP 01/20/25 01/20/25 00:30 05:17 Sodium 128 L 127 L Potassium 2.6 L* 2.8 L* Chloride 91 L 95 L Carbon Dioxide 26 25 BUN 109 H* D 108 H* Creatinine 3.43 H 2.90 H Glucose 116 H 97 Calcium 7.2 L 6.9 L Liver Function 01/20/25 01/20/25 Range/Units 00:30 05:17 Total Bilirubin 1.8 H 3.2 H (0.2-1.3) mg/dL AST 56 H 43 H (14-36) U/L ALT 123 H 95 H (6-35) U/L Alkaline Phosphatase 96 81 (38-126) U/L Albumin 2.7 L 2.1 L (3.5-5.1) g/dL Urine 01/20/25 Range/Units 08:33 Urine Color Yellow (Yellow) Urine Appearance Clear (Clear) Urine pH 5.0 (5.0-9.0) Ur Specific [place] 1.015 (1.001-1.035) Urine Protein 2+ H (Negative) mg/dL Urine Glucose (UA) Negative (Negative) mg/dL
--- NOTE | 2025-01-20 13:07 | P.CONNP_ITS ---
Assessment and Plan Assessment and plan (1) Acute kidney injury: Code(s): N17.9 - Acute kidney failure, unspecified Status: Acute Assessment and Plan: * as noted on admission (creatinine of 3.43mg/dl) * some improvement note by trend of labs * likely due to multiple issues: * prerenal factors (poor nutrition) * anemia/GI bleed * possible infection/sepsis * respiratory failure * hypoxia * liver disease/cirrhosis * progression of underlying CKD(?) * other(?) * elevated BUN due to catabolic state + suspected GI bleed * check renal ultrasound, urine studies, and CPK * maintain hemodynamics and H/H as tolerated * 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 * was noted to be ~ 1.4 - 1.6mg/dl in June 2024 * however, since December 2024, has been running ~ 2.4 - 2.6mg/dl (from record review from [facility]) * most recent labs done on 01/15/25 -- creatinine up to 2.79mg/dl (ER visit at [facility] prior to leaving [place]) (3) Acute upper GI bleeding: Code(s): K92.2 - Gastrointestinal hemorrhage, unspecified Status: Acute Assessment and Plan: * suspected based on admission events/presentation * GI following * s/p EGD (earlier today): * noted erosive esophagitis but no varices or bleeding lesions noted * PRBC transfusion per protocol * correcting coagulopathy * IV PPI * follow trend on H/H (4) Acute hypoxic respiratory failure: Code(s): J96.01 - Acute respiratory failure with hypoxia Status: Acute Assessment and Plan: * multifactorial: * inability to protect airway * aspiration pneumonia * pleural effusions * suspected upper GI bleed * complicated by underlying COPD * imaging noted - mild pulmonary edema * IV diuretics PRN * ventilator weaning as tolerated (5) Sepsis: Code(s): A41.9 - Sepsis, unspecified organism Status: Acute Assessment and Plan: * possibly from pneumonia (aspiration) versus UTI * follow culture data * on antibiotics * stable hemodynamics noted (6) Coagulopathy: Code(s): D68.9 - Coagulation defect, unspecified Status: Acute Assessment and Plan: * probably secondary to liver cirrhosis * complicated by thrombocytopenia which is also likely due to liver disease * s/p cryoprecipitate, platelets, and FFP transfusion * follow INR (7) Transaminitis: Code(s): R74.01 - Elevation of levels of liver transaminase levels Status: Acute Assessment and Plan: * noted by admission labs * suspect secondary to/consistent with with alcoholic liver disease * hepatitis panel noted (8) Alcoholic cirrhosis of liver with ascites: Code(s): K70.31 - Alcoholic cirrhosis of liver with ascites Status: Acute Assessment and Plan: * as evidenced by admission CT/imaging findings * presumably related to alcohol intake * see #7 * GI following (9) Anemia: Code(s): D64.9 - Anemia, unspecified Status: Acute Assessment and Plan: * due to several issues: * due to underlying CKD * iron deficiency (as noted by admission anemia studies) * #3 - GI following * liver dissease * coagulopathy * other * PRBC transfusion as needed * Epogen while hospitalized * follow trend of H/H (10) Acetabular fracture: Qualifiers: Encounter type: initial encounter Fracture alignment: nondisplaced F racture type: closed Laterality: right Sublocation of acetabulum: unspecified portion of acetabulum Qualified Code(s): S32.401A - Unspecified fracture of right acetabulum, initial encounter for closed fracture Code(s): S32.409A - Unspecified fracture of unspecified acetabulum, initial encounter for closed fracture Status: Acute Assessment and Plan: * as noted by admission CT imaging: * fractures of the right anterior acetabulum at the junction of the right superior pubic ramus and of the right inferior pubic ramus, acute to subacute in nature * Orthopedic Surgery consulted * not likely a surgical candidate at this time (11) Distal radial fracture: Qualifiers: Encounter type: subsequent encounter Fracture healing: with nonunion F racture morphology: unspecified fracture morphology Fracture type: closed L aterality: left Qualified Code(s): S52.502K - Unspecified fracture of the lower end of left radius, subsequent encounter for closed fracture with nonunion Code(s): S52.509A - Unspecified fracture of the lower end of unspecified radius, initial encounter for closed fracture Status: Acute Assessment and Plan: * apparently chronic in nature by X-rays * splint in place * Orthopedic Surgery consulted (12) Alcohol abuse: Code(s): F10.10 - Alcohol abuse, uncomplicated Status: Acute Assessment and Plan: * known history * monitor for withdrawal (although currently sedated) * on IV thiamine and folate Greater than 25 minutes spent reviewing electronic medical records and paper charge as well as review of outpatinet/inpatient labs both here at [facility] as well as [facility] with regard to her multiple medical issues/problems along with her known history of renal dysfunction/chronic kidney disease. I will continue to follow the patient with you while she remains hospitalized and make further recommendations as deemed necessary. Thank you for allowing me to participate in the care of this patient. L History of Present Illness Reason for Consult Consult date: 01/20/25 Reason for consult: acute renal failure (on chronic kidney disease ) Chief Complaint Chief complaint: Upper GI bleed, anemia, altered mental status History of Present Illness Narrative: All of the information I have obtained is from review of the electronic medical record, discussion with the physician/nurses involved in the patient's care, and discussion with the outpatient lab at [facility] as well as what paper chart/records that were sent from [facility] since the patient is intubated and on mechanical ventilation and unable to provide any history. The patient is a 59-year-old female with a past medical history as outlined below who presented to [facility] Emergency Room via EMS for a suspected GI bleed. The patient apparently started vomiting blood on the day prior to presentation to the emergency room. The specifics in terms of how many times she vomited and when it exactly started are not clear. Apparently, EMS was called to the patient's home a total of 3 times for this issue. The first 2 times, she apparently was oriented and declined transfer to the emergency room. However, on the 3rd time EMS was called, she was confused and hence she was not allowed to decline transfer. On arrival to the emergency room, she was awake and talking but was an extremely poor historian and was, at times, not making sense. She was witnessed to have large amounts of hematemesis in the emergency room. This was further complicated by the fact that she did not appear to be protecting her airway given her fluctuating mentation and hence she had to be intubated and placed on mechanical ventilation. An NG-tube was placed which demonstrated ongoing bloody output as well. Surprisingly, despite these events, her blood pressure remained stable although she was noted be hypothermic which seemed to resolve on its own. Given clear evidence of a upper GI bleed, on octreotide drip was started and she was initiated on IV Protonix as well. Initial labs demonstrated a mildly elevated white blood count 11.2, hemoglobin 7.0, hematocrit 22.8, platelet count of 105, sodium 128, potassium 2.6, CO2 26, BUN 109, creatinine 3.43, glucose 116, calcium 7.2, magnesium 2.0, AST 56, ALT 123, alk-phos 96, albumin 2.7, lipase 92, and a procalcitonin 1.2; iron studies were significant for iron of 32, TIBC 321, and % saturation 10. A CT scan of the chest/abdomen/pelvis demonstrated compression fraction at T12, bilateral pleural effusions, left lower lobe atelectasis/pneumonia with a cavitary nodule in the right lower lobe which could be infectious or inflammatory along with moderate abdominal pelvic ascites, circumferential wall thickening of the ascending colon without evidence of infection; it was also noted that she had an acetabular fracture present as well. Due the concerns for possible sepsis based on these imaging findings in the context of her GI bleed, appropriate cultures were obtained and she was empirically started on IV antibiotics. She was maintained on IV fluids and typed and crossed with a subsequent blood transfusion initiated and was subsequently transferred to the intensive care unit for further evaluation and therapy. Upon further review her records, she gets most of her care at [facility] and has had several ER visits there in the last month or so although she apparently has always left AMA or declines hospitalization despite her evaluation in the ER. Her last ER visit was on January 15 with a chief complaint of shortness of breath although as already mentioned, she appeared to leave the ER against medical advice and interestingly, much like on this presentation, EMS had been called to her home several times and she initially declined transferred to the ER at least 2 times before finally agreeing to come to the ER a 3rd time. However, as already mentioned, she declined hospitalizations/admission On her recent visit on 01/15/2025. Since her admission to the ICU, her repeat H/ H this morning has improved following blood transfusion. she has been seen by Gastroenterology and subsequently underwent a EGD earlier today which demonstrated no varices or bleeding lesions but with the presence of erosive esophagitis. she remains hemodynamically stable without the need for vasopressor therapy. Renal consultation was requested due to her acute kidney injury/acute renal failure on top of her baseline chronic kidney disease. From review of her extensive records here at [facility] as well as my discussion with the greenhouse laborer at [facility] (and verfied by labs that were faxed), the patient has evidence of renal insufficiency see that dates back as or that lead June of 2024. Unfortunately, it is difficult to ascertain what her baseline creatinine normally runs as it has been fluctuating the last 7- 8 months. Her creatinine in June of this year was running around 1.4 - 1.6 mg/dL with subsequent laboratory testing in December and January as noted with a trend of a creatinine that seems to fluctuate anywhere from 2.4 - 2.6 mg/dL with her most recent lab on 01/15 with a creatinine of 2.79 mg/dL. Is difficult to ascertain if this is an acute insult on top of her baseline kidney disease or perhaps progression of her underlying kidney disease although this does seem a bit rapid rapid given the trend labs from June of this year. However, her creatinine appears to improved since admission with her most recent creatinine at 2.90 mg/dL from her admission value of 3.43 mg/dL. Surprisingly, she is still having issues with hypokalemia but given her known history of alcohol abuse in the context of her clinical appearance/ physical exam, I suspect she is her low potassium level is a manifestation of total body store depletion. Currently, at the time my evaluation, she remains intubated/sedated and on mechanical ventilation and remains hemodynamically stable. Review of Systems 2 Review of Systems: As per HPI. [facility] Past Medical History Medical History Acute on chronic anemia Erosive esophagitis Elevated liver enzymes CKD (chronic kidney disease) stage 4, GFR 15-29 ml/min Severe protein-calorie malnutrition Alcoholic cirrhosis of liver with ascites Alcohol abuse Surgical History Surgical History (Updated 01/20/25 @ 06:43 by Naila Torres DO) Status post open reduction with internal fixation of fracture Right femur Family History Family History (Updated 01/20/25 @ 06:43 by Naila Torres DO) Other Unknown family medical history Social History Social History (Updated 01/20/25 @ 06:44 by Naila Torres DO) Social History: Patient has a history of chronic alcohol abuse. Her urine drug screen was also positive for amphetamines. Patient has dark tobacco staining to her fingers. Smoking packs per day: 1 Smoking cigarettes per day: 20.0 Years smoked: 40 Smoking pack-years: 40.00 Smoking status: Current every day smoker Tobacco type: cigarettes Alcohol intake: current Substance use: unknown Spiritual care concerns: No Meds Home Medications and Allergies Home Medications ?Medication ?Instructions ?Recorded ?Confirmed ?Type clonazepam 1 mg tablet 1 mg PO Q8H PRN anxiety 01/0201/20/25 History diazepam 10 mg tablet 10 mg PO DAILY 01/20/2501/02 History Allergies Allergy/AdvReac Type Severity Reaction Status Date / Time codeine Allergy Mild Verified 11/23/09 20:50 gabapentin Allergy Mild Verified 11/23/09 20:50 Penicillins Allergy Mild Verified 01/20/25 07:51 Vital Signs Vital Signs Temp Pulse Resp BP Pulse Ox O2 Del Method O2 Flow Rate 01/20/25 13:06 64 14 01/20/25 12:54 95.6 F L 65 14 150/98 H 94 01/20/25 12:08 60 14 152/105 H 97 BiPAP 01/20/25 12:05 64 15 01/20/25 12:00 01/20/25 12:00 62 01/20/25 12:00 61 14 97 Mechanical Ventilation 01/20/25 12:00 61 14 01/20/25 12:00 62 14 01/20/25 12:00 95.7 F L 63 14 152/105 H 97 01/20/25 11:54 95.7 F L 61 14 152/105 H 97 01/20/25 11:35 95.8 F L 62 14 154/108 H 99 01/20/25 10:00 62 01/20/25 10:00 96.1 F L 63 14 154/111 H 100 01/20/25 10:00 61 14 01/20/25 10:00 61 14 01/20/25 09:58 96.1 F L 61 14 157/111 H 100 01/20/25 09:57 62 100 Mechanical Ventilation 01/20/25 09:42 96.3 F L 64 14 142/107 H 100 01/20/25 09:35 96.3 F L 61 14 138/104 H 100 01/20/25 09:20 96.4 F L 64 14 118/97 H 100 01/20/25 08:13 70 100 Mechanical Ventilation 01/20/25 08:00 70 01/20/25 08:00 70 14 100 Mechanical Ventilation 01/20/25 08:00 71 14 01/20/25 08:00 71 14 01/20/25 08:00 96.7 F L 70 14 118/97 H 100 01/20/25 06:00 77 16 01/20/25 06:00 74 16 01/20/25 06:00 96.7 F L 71 16 111/93 H 99 01/20/25 06:00 67 01/20/25 04:49 95 F L 67 16 109/84 100 01/20/25 04:47 95 F L 65 18 106/86 99 01/20/25 04:30 95.9 F L 70 16 102/84 100 01/20/25 04:29 70 95 Mechanical Ventilation 01/20/25 03:45 95 F L 66 16 107/85 100 01/20/25 03:30 95 F L 65 16 103/85 100 01/20/25 03:00 95 F L 63 16 120/93 H 99 01/20/25 02:45 61 16 141/100 H 100 01/20/25 02:38 65 95 Mechanical Ventilation 01/20/25 02:30 64 16 134/104 H 100 01/20/25 02:00 68 16 148/11 H 94 01/20/25 01:45 67 14 140/116 H 93 01/20/25 01:28 69 16 01/20/25 01:27 69 16 167/100 H 91 01/20/25 01:15 73 16 143/102 H 73 L 01/20/25 01:00 82 16 213/140 H 81 L 01/20/25 00:58 82 16 01/20/25 00:57 81 100 Mechanical Ventilation 01/20/25 00:55 76 16 206/144 H 75 L 01/20/25 00:52 81 94 Mechanical Ventilation 01/20/25 00:45 75 16 183/123 H 75 L 01/20/25 00:31 81 14 130/100 H 92 Nasal Cannula 3 01/20/25 00:30 86 16 110/85 92 Exam 2 Narrative: GENERAL APPEARANCE: chronically ill-appearing and cachectic female (who looks older than stated age) intubated/sedated and on mechanical ventilation HEENT: normocephalic, atraumatic, pallor conjunctiva and sclera, nares patient NECK: no lymphadenopathy, thyromegaly, or JVD MOUTH: normal lips and gums; ETT in place CARDIOVASCULAR: RRR, normal S1 and S2, no rub RESPIRATORY: coarse breath sounds with diminished air movement; decreased at bases ABDOMEN: soft, nontender, nondistended, decreased bowel sounds present EXTREMITIES: no evidence of cyanosis, clubbing, or edema; cool to tuoch NEUROLOGICAL: unable to assess Results Lab Results 01/23/25 01:58 01/23/25 01:58 Lab results: Most recent lab results ABG pH 7.384 (7.350-7.450) 01/20/25 09:23 ABG pCO2 42.4 mmHg (35.0-45.0) 01/20/25 09:23 ABG pO2 < 27.0 mmHg (80.0-100.0) L* 01/20/25 09:23 ABG HCO3 24.7 mEq/l (22.0-26.0) 01/20/25 09:23 ABG O2 Saturation Not Reportable 01/20/25 09:23 Calcium 7.5 mg/dL (8.4-10.2) L 01/20/25 15:11 Phosphorus 2.8 mg/dL (2.5-4.5) 01/20/25 05:17 Magnesium 2.0 mg/dL (1.6-2.3) 01/20/25 00:30 Urine Creatinine 36.5 mg/dL 01/20/25 14:56 Urine Creatinine 37.1 mg/dL 01/20/25 14:56
[2025-01-20 13:53] LABS: Arterial Blood Gas Tidal Volume 320 ml; Arterial Blood Gas Ventilator rate 14 /MIN
--- NOTE | 2025-01-20 13:56 | PCRCNOTE ---
Blood gas results @ 0923 that were obtained were VENOUS results not arterial. Dr. Beltran aware that venous blood was obtained. RT Aaron Jones conversed with Dr. Beltran.
[2025-01-20 15:16] LABS: Mean Corpuscular HGB Conc 32.8 g/dl (32-36); Mean Corpuscular Hemoglobin 28.9 pg (26-34); Mean Corpuscular Volume 88.2 fl (80-100); Platelet Count Result 126 k/mm3 (150-375); Red Blood Count 2.11 M/mm3 (4.2-5.4); White Blood Count 8.5 K/mm3 (4.5-10.0)
[2025-01-20 15:21] LABS: Total Protein Urine Random 71 mg/dL; Urea Random Urine 789 MG/DL
[2025-01-20 15:22] LABS: Hematocrit 18.6 % (37.0-47.0); Hemoglobin 6.1 g/dL (12.0-15.0)
[2025-01-20 15:24] LABS: Total Protein Urine Random 70 mg/dL; Ur Ttl Prot Creatinine Ratio 1.92 mg/mg (0-0.20)
[2025-01-20 15:34] LABS: INR 1.5; Prothrombin Time 17.8 Seconds (11.1-14.7)
[2025-01-20 15:35] LABS: Partial Thromboplastin Time 51.5 Seconds (22.3-36.8)
[2025-01-20 15:36] LABS: Fibrinogen 216 mg/dl (215-510)
[2025-01-20 15:42] LABS: Anion Gap 8 mmol/L (4-12); Blood Urea Nitrogen 96 mg/dL (7-17); Calcium 7.5 mg/dL (8.4-10.2); Carbon Dioxide 25 mmol/L (22-30); Chloride 100 mmol/L (98-107); Estimated CRCL calculation 13 ml/min; Estimated Glomerular Filt Rate 19; Glucose 101 mg/dL (65-110); Potassium 2.9 mmol/L (3.4-5.0); Sodium 133 mmol/L (137-145)
[2025-01-20 15:57] LABS: Urine Eos QC 2nd Tech Confirmed
[2025-01-20] MEDS: CALCIUM GLUC 2,000 MG/NS 100ML 2,000 MG/100 ML BAG 100 MG IVPB (16:44)
[2025-01-20] MEDS: KCL 40 MEQ/WATER 100 ML 100 ML 25 ML IVPB (17:01)
[2025-01-20] MEDS: POTASSIUM CHLORIDE 20 MEQ PACKET (FOR LIQUID) 40 MEQ PO (17:01)
[2025-01-20 18:36] LABS: Magnesium 1.8 mg/dL (1.6-2.3)
[2025-01-20] MEDS: SODIUM CHLORIDE 0.9% IV 50 ML 100 ML (23:59)
[2025-01-21] VITALS (40 sets, daily range): BP systolic 123–136; BP diastolic 80–93; PULSE 60–72; RESP 12–16; TEMP 35.9–36.7; O2SAT 97–100
[2025-01-21] MEDS: MIDAZOLAM 100MG/NS 100ML(*CRX) 100 MG/100 ML BAG IV CONT
[2025-01-21] MEDS: FENTANYL 2,500MCG/NS250ML(*CRX 2,500 MCG/250 ML BAG IV CONT
[2025-01-21 02:10] LABS: Anion Gap 9 mmol/L (4-12); Blood Urea Nitrogen 88 mg/dL (7-17); Calcium 8.3 mg/dL (8.4-10.2); Carbon Dioxide 24 mmol/L (22-30); Chloride 103 mmol/L (98-107); Estimated CRCL calculation 13 ml/min; Estimated Glomerular Filt Rate 18; Glucose 82 mg/dL (65-110); Magnesium 1.8 mg/dL (1.6-2.3); Potassium 3.7 mmol/L (3.4-5.0); Sodium 136 mmol/L (137-145)
[2025-01-21] MEDS: PANTOPRAZOLE SODIUM IV 80 MG in SODIUM CHLORIDE 0.9% IV 500 ML 50 MG IV CONT (02:58)
[2025-01-21 05:48] LABS: Alveolar/Arterial O2 Gradient 307.5 mmHg; Carboxyhemoglobin 1.1 % THb (0-2.0); Fractional Inspired Oxygen 60 %; HCO3 ABG 25.4 mEq/l (22.0-26.0); Methemoglobin ABG 0.7 %THb (0-1.5); Oxygen Content ABG 9.0 %vol (16.0-22.0); Oxygen Saturation ABG 94.3 % (95.0-100.0); PCO2 ABG 43.7 mmHg (35.0-45.0); PO2 ABG 72.2 mmHg (80.0-100.0); PO2 FiO2 Ratio Arterial Blood 1.20 %; Reduced Hemoglobin 5.7 %THb (0-5.0)
[2025-01-21 05:59] LABS: Modified Allen's Test Pass; Site Drawn RIGHT RADIAL
[2025-01-21 06:00] LABS: Arterial Blood Gas Tidal Volume 320 ml; Arterial Blood Gas Ventilator rate 14 /MIN
[2025-01-21] MEDS: ALBUMIN HUMAN 25% 25 GM/100 ML 100 ML IVPB (06:15)
[2025-01-21] MEDS: CENTRAL LINE FLUSH 10 ML IV PUSH ×3 (06:43→21:50)
[2025-01-21 06:48] LABS: Immature Granulocyte Percent A 0.8 % (0-0.5); Immature Platelet Fraction Pct 2.0 % (0.9-11.2); Lymphocytes Absolute Auto 0.68 K/mm3 (0.9-3.2); Mean Corpuscular HGB Conc 31.2 g/dl (32-36); Mean Corpuscular Hemoglobin 28.1 pg (26-34); Mean Corpuscular Volume 90.2 fl (80-100); Nucleated Red Blood Cells Absolute Auto 0.020 K/mm3 (0.0-0.012); Nucleated Red Blood Cells Perc 0.2 % (0.0-0.2); Platelet Count Result 70 k/mm3 (150-375); Red Blood Count 2.24 M/mm3 (4.2-5.4); White Blood Count 8.9 K/mm3 (4.5-10.0)
[2025-01-21 07:09] LABS: Alanine Aminotransferase 41 U/L (6-35); Albumin Level 2.9 g/dL (3.5-5.1); Alkaline Phosphatase 54 U/L (38-126); Anion Gap 9 mmol/L (4-12); Aspartate Amino Transferase 27 U/L (14-36); Bilirubin,Total 2.3 mg/dL (0.2-1.3); Blood Urea Nitrogen 86 mg/dL (7-17); Calcium 8.1 mg/dL (8.4-10.2); Carbon Dioxide 24 mmol/L (22-30); Chloride 104 mmol/L (98-107); Creatine Kinase < 20 U/L (30-135); Estimated CRCL calculation 13 ml/min; Estimated Glomerular Filt Rate 18; Glucose 85 mg/dL (65-110); Potassium 3.4 mmol/L (3.4-5.0); Sodium 137 mmol/L (137-145); Total Protein 4.8 g/dL (6.3-8.2)
[2025-01-21 07:54] LABS: Hemoglobin 6.3 g/dL (12.0-15.0)
[2025-01-21 07:55] LABS: Hematocrit 20.2 % (37.0-47.0)
[2025-01-21] MEDS: VANCOMYCIN HCL 1,000 MG in SODIUM CHLORIDE 0.9% IV 250 ML 250 MG IVPB (08:29)
[2025-01-21] MEDS: PANTOPRAZOLE SODIUM IV 40 MG VIAL IV PUSH ×2 (09:09→21:49)
[2025-01-21] MEDS: THIAMINE HCL 200 MG/2 ML VIAL 100 MG IV PUSH (09:09)
[2025-01-21] MEDS: FOLIC ACID 1 MG/0.2 ML INJ IV PUSH (09:10)
[2025-01-21] MEDS: PIPERACILLIN/TAZOBACTAM SOD 2.25 GM in SODIUM CHLORIDE 0.9% IV 50 ML 100 ML IVPB ×3 (09:10→23:55)
[2025-01-21] MEDS: MUPIROCIN 2% OINT 22 GM TUBE 1 APPLIC EACH NARE ×2 (09:11→21:49)
[2025-01-21 09:14] LABS: Hepatitis B Surface Anti Res Negative
--- NOTE | 2025-01-21 09:20 | P.PNINT_ITS ---
Progress Note: A&P Assessment and Plan (1) Acute upper GI bleeding: Code(s): K92.2 - Gastrointestinal hemorrhage, unspecified Status: Acute Assessment and Plan: Acute upper GI bleed which could be either variceal versus peptic ulcer disease Status post transfusion of 2 units PRBC Coagulopathy is being corrected Monitor hemoglobin and transfuse additional PRBC if needed IV Protonix and octreotide infusions GI consulted and plan for EGD today Serial hemoglobin monitoring (2) Transaminitis: Code(s): R74.01 - Elevation of levels of liver transaminase levels Status: Acute Assessment and Plan: AST and ALT mildly elevated likely consistent with alcoholic liver disease. Hepatitis C antibody screen is positive. RNA quantitative is pending (3) Alcoholic cirrhosis of liver with ascites: Code(s): K70.31 - Alcoholic cirrhosis of liver with ascites Status: Acute Assessment and Plan: Patient has cirrhosis from alcohol liver disease with CT scan showing ascites (4) Acute kidney injury superimposed on stage 4 chronic kidney disease: Code(s): N17.9 - Acute kidney failure, unspecified; N18.4 - Chronic kidney disease, stage 4 (severe) Status: Acute Assessment and Plan: Baseline creatinine unknown. Will obtain records from [facility], [place], [facility]. Off IV fluids now due to concern of volume overload patient is getting blood products Potassium replacement Monitor urine output electrolytes and creatinine CT scans not show any obstruction or stone Renal ultrasound showed mild bilateral hydronephrosis without any stones Nephrology consulted and following. Patient may need renal replacement therapy if renal function deteriorates (5) Acute hypoxic respiratory failure: Code(s): J96.01 - Acute respiratory failure with hypoxia Status: Acute Assessment and Plan: Acute respiratory failure secondary to aspiration pneumonia pleural effusion upper GI bleed with underlying COPD Ventilator settings reviewed patient is on CMV at 320, 60% FiO2, rate of 14 and peep of 10 Imaging reviewed suggest mild pulmonary edema. Will give Lasix after blood transfusion Repeat ABG Will order bronchodilator Weaning will depend on improvement and stabilization of other issues (6) Coagulopathy: Code(s): D68.9 - Coagulation defect, unspecified Status: Acute Assessment and Plan: Coagulopathy secondary to cirrhosis and sepsis Patient received cryo and platelets. She is also getting 2 units of FFP (7) Sepsis: Code(s): A41.9 - Sepsis, unspecified organism Status: Acute Assessment and Plan: Sepsis likely secondary to pneumonia which could be aspiration Blood cultures ordered On IV Zosyn UA and micro also suggestive UTI. Urine cultures (8) Anemia: Code(s): D64.9 - Anemia, unspecified Status: Acute Assessment and Plan: Likely multifactorial anemia from iron deficiency and anemia of chronic kidney disease along with acute blood loss Patient received a dose of iron And she has received 3 units of PRBC and is getting 4th unit currently. Hemoglobin is 6.3 I will give additional 1 unit PRBC Monitor and transfuse additional if needed Management of GI bleeding as above Consult nephrology for Neupogen (9) Thrombocytopenia: Code(s): D69.6 - Thrombocytopenia, unspecified Status: Acute Assessment and Plan: Thrombocytopenia likely combination of sepsis and cirrhosis. 01/20 Platelet transfusion Will repeat CBC later this afternoon hold any anticoagulation (10) Alcohol abuse: Code(s): F10.10 - Alcohol abuse, uncomplicated Status: Acute Assessment and Plan: History of alcohol abuse. At this time patient is sedated with Versed and fentanyl. Continue thiamine and folic acid (11) Severe protein-calorie malnutrition: Code(s): E43 - Unspecified severe protein-calorie malnutrition Status: Acute Assessment and Plan: Appears well nourished and cachectic. Patient was NPO due to GI bleed. Will start tube feeding today at a low rate (12) Acetabular fracture: Qualifiers: Encounter type: initial encounter Fracture alignment: nondisplaced Fracture type: closed Laterality: right Sublocation of acetabulum: unspecified portion of acetabulum Qualified Code(s): S32.401A - Unspecified fracture of right acetabulum, initial encounter for closed fracture Code(s): S32.409A - Unspecified fracture of unspecified acetabulum, initial encounter for closed fracture Status: Acute Assessment and Plan: Orthopedics consulted. Obtain records from [facility], [place], [facility] (13) Distal radial fracture: Qualifiers: Encounter type: subsequent encounter Fracture type: closed Fracture morphology: unspecified fracture morphology Laterality: left Fracture healing: with nonunion Qualified Code(s): S52.502K - Unspecified fracture of the lower end of left radius, subsequent encounter for closed fracture with nonunion Code(s): S52.509A - Unspecified fracture of the lower end of unspecified radius, initial encounter for closed fracture Status: Acute Assessment and Plan: Currently in splint. Orthopedics consulted Plan DVT prophylaxis -SCDs Stress ulcer prophylaxis -Protonix IV Nutrition -start tube feeds Code Status - Full Code Total Critical Care Time - 30 minutes Due to a high probability of clinically significant, life threatening deterioration, the patient required my highest level of preparedness to intervene emergently and I personally spent this critical care time directly and personally managing the patient. This critical care time included obtaining a history; examining the patient; pulse oximetry; ordering and review of studies; arranging urgent treatment with development of a management plan; evaluation of patient's response to treatment; frequent reassessment; and discussions with other providers. It was exclusive of separately billable procedures and treating other patients and teaching time. Please see Assessment and Plan section and the rest of the note for further information on patient assessment and treatment Subjective Date/time seen: 01/21/25 The yesterday which showed reflux esophagitis and hiatal hernia. Overnight events reviewed. Afebrile Continues to be on mechanical ventilation 60% FiO2 and 10 of PEEP Still receiving blood products that were open yesterday afternoon Continues to be sedated with Versed and fentanyl Vitals acceptable Review of Systems Review of Systems: ROS unobtainable: Yes unobtainable due to endotracheal tube, unobtainable due to medical condition and unobtainable due to mental st atus Exam Narrative: General: Pt is cachectic old female who looks much older than her age. She is Sedated, intubated and on mechanical ventilation Lungs/Chest: Trachea central Coarse BS B/L, No crackles or wheezing. Overall decreased air movement throughout lungs with barrel chest Cardiac: RRR. Normal S1 S2. No murmurs Circulation: Pedal pulses are intact and symmetrical. Abdomen: Decreased bowel sounds.. Soft. NT. ND. Extremities: No clubbing, cyanosis or edema. Feet are cold : Mclean in place Neurologic: Unable to assess due to sedation. She tries to open her eyes on painful stimuli PERRL Skin: Petechia on the chest Objective Data Vital Signs Vital Signs: Vital Signs - 24 hr 01/20/25 09:35 01/20/25 09:42 01/20/25 09:57 Temperature 35.7 C L 35.7 C L Pulse Rate 61 64 62 Respiratory Rate 14 14 Blood Pressure 138/104 H 142/107 H Pulse Oximetry 100 100 100 Oxygen Delivery Mechanical Ventilation Fraction of Inspired Oxygen 40 01/20/25 09:58 01/20/25 10:00 01/20/25 10:00 Temperature 35.6 C L Pulse Rate 61 61 61 Respiratory Rate 14 14 14 Blood Pressure 157/111 H Pulse Oximetry 100 Oxygen Delivery Fraction of Inspired Oxygen 01/20/25 10:00 01/20/25 10:00 01/20/25 11:35 Temperature 35.6 C L 35.4 C L Pulse Rate 63 62 62 Respiratory Rate 14 14 Blood Pressure 154/111 H 154/108 H Pulse Oximetry 100 99 Oxygen Delivery Fraction of Inspired Oxygen 01/20/25 11:54 01/20/25 12:00 01/20/25 12:00 Temperature 35.4 C L 35.4 C L Pulse Rate 61 63 62 Respiratory Rate 14 14 14 Blood Pressure 152/105 H 152/105 H Pulse Oximetry 97 97 Oxygen Delivery Fraction of Inspired Oxygen 01/20/25 12:00 01/20/25 12:00 01/20/25 12:00 Temperature Pulse Rate 61 61 62 Respiratory Rate 14 14 Blood Pressure Pulse Oximetry 97 Oxygen Delivery Mechanical Ventilation Fraction of Inspired Oxygen 40 01/20/25 12:00 01/20/25 12:05 01/20/25 12:08 Temperature Pulse Rate 64 60 Respiratory Rate 15 14 Blood Pressure 152/105 H Pulse Oximetry 97 Oxygen Delivery BiPAP Fraction of Inspired Oxygen 60 01/20/25 12:54 01/20/25 13:06 01/20/25 13:11 Temperature 35.3 C L Pulse Rate 65 64 64 Respiratory Rate 14 14 Blood Pressure 150/98 H Pulse Oximetry 94 91 Oxygen Delivery Mechanical Ventilation Fraction of Inspired Oxygen 60 01/20/25 13:26 01/20/25 13:44 01/20/25 13:58 Temperature 35.3 C L 35.4 C L 35.4 C L Pulse Rate 64 63 63 Respiratory Rate 14 14 14 Blood Pressure 158/101 H 158/101 H 145/96 H Pulse Oximetry 92 92 93 Oxygen Delivery Fraction of Inspired Oxygen 01/20/25 14:00 01/20/25 14:00 01/20/25 14:00 Temperature Pulse Rate 64 64 63 Respiratory Rate 14 14 Blood Pressure Pulse Oximetry Oxygen Delivery Fraction of Inspired Oxygen 01/20/25 14:44 01/20/25 14:55 01/20/25 15:28 Temperature 35.8 C L 35.7 C L Pulse Rate 62 61 68 Respiratory Rate 14 14 14 Blood Pressure 141/92 H 141/92 H Pulse Oximetry 93 97 Oxygen Delivery Fraction of Inspired Oxygen 01/20/25 16:00 01/20/25 16:00 01/20/25 16:00 Temperature Pulse Rate 69 69 69 Respiratory Rate 14 14 14 Blood Pressure Pulse Oximetry 97 Oxygen Delivery Mechanical Ventilation Fraction of Inspired Oxygen 40 01/20/25 16:00 01/20/25 16:00 01/20/25 16:00 Temperature 36.2 C L Pulse Rate 69 69 Respiratory Rate 14 Blood Pressure 147/95 H Pulse Oximetry 97 Oxygen Delivery Fraction of Inspired Oxygen 40 01/20/25 16:00 01/20/25 17:32 01/20/25 17:33 Temperature 36.3 C L Pulse Rate 70 74 75 Respiratory Rate 14 Blood Pressure 147/95 H Pulse Oximetry 97 97 96 Oxygen Delivery Mechanical Ventilation Mechanical Ventilation Fraction of Inspired Oxygen 60 60 01/20/25 18:00 01/20/25 18:00 01/20/25 19:55 Temperature 36.9 C Pulse Rate 80 81 71 Respiratory Rate 14 Blood Pressure 147/93 H Pulse Oximetry 94 100 Oxygen Delivery Mechanical Ventilation Fraction of Inspired Oxygen 60 01/20/25 20:00 01/20/25 20:00 01/20/25 20:00 Temperature Pulse Rate 71 71 Respiratory Rate 14 14 Blood Pressure Pulse Oximetry Oxygen Delivery Fraction of Inspired Oxygen 60 01/20/25 20:00 01/20/25 20:00 01/20/25 21:00 Temperature 36.7 C Pulse Rate 71 71 Respiratory Rate 14 Blood Pressure 129/89 Pulse Oximetry 100 100 Oxygen Delivery Mechanical Ventilation Fraction of Inspired Oxygen 60 01/20/25 22:00 01/20/25 22:00 01/20/25 22:00 Temperature 36.8 C Pulse Rate 77 77 77 Respiratory Rate 14 14 14 Blood Pressure 141/90 H Pulse Oximetry 95 Oxygen Delivery Fraction of Inspired Oxygen 01/20/25 22:00 01/20/25 23:05 01/20/25 23:23 Temperature 36.5 C Pulse Rate 77 74 86 Respiratory Rate 16 Blood Pressure 110/62 Pulse Oximetry 100 92 Oxygen Delivery Mechanical Ventilation Fraction of Inspired Oxygen 60 01/20/25 23:45 01/21/25 00:00 01/21/25 00:00 Temperature 36.7 C 36.7 C Pulse Rate 69 70 Respiratory Rate 14 14 Blood Pressure 133/83 133/87 Pulse Oximetry 100 100 Oxygen Delivery Fraction of Inspired Oxygen 60 01/21/25 00:00 01/21/25 00:00 01/21/25 00:00 Temperature Pulse Rate 70 70 Respiratory Rate 14 14 Blood Pressure Pulse Oximetry 100 Oxygen Delivery Mechanical Ventilation Fraction of Inspired Oxygen 60 01/21/25 00:00 01/21/25 00:05 01/21/25 01:05 Temperature 36.7 C 36.6 C Pulse Rate 69 70 68 Respiratory Rate 14 14 Blood Pressure 133/87 132/88 Pulse Oximetry 100 100 Oxygen Delivery Fraction of Inspired Oxygen 01/21/25 02:00 01/21/25 02:00 01/21/25 02:00 Temperature 36.5 C Pulse Rate 67 67 67 Respiratory Rate 14 14 Blood Pressure 133/85 Pulse Oximetry 100 Oxygen Delivery Fraction of Inspired Oxygen 01/21/25 02:00 01/21/25 02:05 01/21/25 02:14 Temperature 36.5 C Pulse Rate 67 67 68 Respiratory Rate 14 14 Blood Pressure 133/85 Pulse Oximetry 100 100 Oxygen Delivery Mechanical Ventilation Fraction of Inspired Oxygen 60 01/21/25 02:45 01/21/25 03:25 01/21/25 03:40 Temperature 36.4 C 36.5 C 36.5 C Pulse Rate 67 67 68 Respiratory Rate 16 14 14 Blood Pressure 134/87 131/87 129/85 Pulse Oximetry 100 100 100 Oxygen Delivery Fraction of Inspired Oxygen 01/21/25 04:00 01/21/25 04:00 01/21/25 04:00 Temperature 36.4 C Pulse Rate 70 Respiratory Rate 14 Blood Pressure 136/86 Pulse Oximetry 100 100 Oxygen Delivery Mechanical Ventilation Fraction of Inspired Oxygen 60 60 01/21/25 04:00 01/21/25 04:00 01/21/25 04:00 Temperature Pulse Rate 71 70 70 Respiratory Rate 14 14 Blood Pressure Pulse Oximetry Oxygen Delivery Fraction of Inspired Oxygen 01/21/25 04:35 01/21/25 04:40 01/21/25 05:45 Temperature 35.9 C L 36.0 C L Pulse Rate 66 66 63 Respiratory Rate 12 14 Blood Pressure 131/89 130/82 Pulse Oximetry 100 100 100 Oxygen Delivery Mechanical Ventilation Fraction of Inspired Oxygen 60 01/21/25 06:00 01/21/25 06:00 01/21/25 06:00 Temperature 36.0 C L Pulse Rate 63 63 63 Respiratory Rate 14 14 Blood Pressure 133/84 Pulse Oximetry 100 Oxygen Delivery Fraction of Inspired Oxygen 01/21/25 06:00 01/21/25 06:12 01/21/25 06:29 Temperature 36.1 C L 36.1 C L Pulse Rate 63 63 62 Respiratory Rate 14 14 14 Blood Pressure 132/82 132/82 Pulse Oximetry 100 100 Oxygen Delivery Fraction of Inspired Oxygen 01/21/25 07:17 01/21/25 07:29 01/21/25 08:29 Temperature 36.2 C L 36.4 C Pulse Rate 67 66 65 Respiratory Rate 14 14 Blood Pressure 136/86 136/86 Pulse Oximetry 100 100 100 Oxygen Delivery Mechanical Ventilation Fraction of Inspired Oxygen 60 01/21/25 09:06 Temperature 36.4 C Pulse Rate 64 Respiratory Rate 16 Blood Pressure 131/84 Pulse Oximetry 100 Oxygen Delivery Fraction of Inspired Oxygen Intake/Output Intake/Output: Intake & Output 01/18/25 01/19/25 01/20/25 01/21/25 23:59 23:59 23:59 23:59 Intake Total 4025.8 1548 Output Total 1330 400 Balance 2695.8 1148 Meds/Results Medications: Active Medications Generic Name Dose Route Start Last Admin Trade Name Freq PRN Reason Stop Dose Admin Dextrose 12.5 gm 01/20/25 08:23 Dextrose 50% 25 Gm/50 Ml Syringe IV PUSH PRN PRN Hypoglycemia Protocol Folic Acid 1 mg 01/20/25 09:00 01/21/25 09:10 Folic Acid 1 Mg/0.2 Ml Inj IV PUSH 1 mg QAM MEENA Administration Glucagon 1 mg 01/20/25 08:23 Glucagon For Inj 1 Mg Vial IM PRN PRN Hypoglycemia Protocol Glucose 15 gm 01/20/25 08:23 Glucose Oral Gel 15 Gm Of Glucse In 37.5 Gm Tube PO PRN PRN Hypoglycemia Protocol Dextrose 1,000 mls @ 100 mls/hr 01/20/25 08:23 Dextrose 5% 1,000 Ml IVPB PRN PRN Hypoglycemia Protocol Fentanyl Citrate 2,500 mcg in 250 mls @ 5 mls/hr 01/21/25 00:05 01/21/25 06:00 Fentanyl 2,500 Mcg/Ns 250 Ml IV CONT 50 mcg/hr .Q50H MEENA 5 mls/hr Protocol Titration 50 MCG/HR Midazolam HCl 100 mg in 100 mls @ 3 mls/hr 01/21/25 00:05 01/21/25 06:00 Versed 100 Mg/Ns 100 Ml IV CONT 3 mg/hr .[id number] MEENA 3 mls/hr Protocol Titration 3 MG/HR Piperacillin Sod/Tazobactam 50 mls @ 100 mls/hr 01/21/25 08:00 01/21/25 09:10 Sod 2.25 gm/ Sodium Chloride IVPB 100 mls/hr Q8H MEENA Administration Sodium Chloride 250 mls @ 30 mls/hr 01/21/25 08:02 Normal Saline Iv IV CONT 01/21/25 16:21 .Q8H20M STA Sodium Chloride 250 mls @ 30 mls/hr 01/21/25 08:08 Normal Saline Iv IV CONT 01/21/25 16:27 .Q8H20M STA Insulin Aspart 3 - 6 units 01/20/25 12:00 01/21/25 07:44 Insulin Aspart (*Bkc) 100 Units/Ml SUB-Q Not Given Q6HR MEENA Protocol Mupirocin 1 applic 01/20/25 09:00 01/21/25 09:11 Mupirocin 2% Oint 22 Gm Tube EACH NARE 01/24/25 21:01 1 applic Q12HR MEENA Administration Pantoprazole Sodium 40 mg 01/21/25 09:00 01/21/25 09:09 Pantoprazole Sodium Iv 40 Mg Vial IV PUSH 40 mg Q12HR MEENA Administration Sodium Chloride 10 ml 01/20/25 06:00 01/21/25 06:43 Central Line Flush IV PUSH 10 ml Q8HR MEENA Administration Sodium Chloride 20 ml 01/20/25 01:15 Central Line Flush IV PUSH PRN PRN after blood draws Thiamine HCl 100 mg 01/20/25 09:00 01/21/25 09:09 Thiamine Hcl 200 Mg/2 Ml Vial IV PUSH 100 mg QAM MEENA Administration Radiology Results: ITS Impressions Abdomen X-Ray 01/20/25 05:42 Impression: NG tube in satisfactory position. Small left pleural effusion. Chest/Abdomen/Pelvis CT 01/20/25 05:48 Impression: Moderate to large left pleural effusion with extensive left lower lobe atelectasis. Small right pleural effusion. 9 mm spiculated nodule in the right lower lobe, as detailed above, indeterminate. CT scan in 3 months advised. Consider PET/CT or attempted tissue sampling as indicated. Moderate emphysema. No definite evidence for GI bleed, but evaluation is limited without IV contrast and with oral contrast on board. Consider follow-up CT angiogram of the bowel to further evaluate for GI bleed, as indicated. Moderate abdominopelvic ascites. T12 compression fracture, somewhat age indeterminate, but new since 06/20/2024. Fractures of the right anterior acetabulum at the junction of the right superior pubic ramus and of the right inferior pubic ramus, acute to subacute in nature. Head CT 01/20/25 06:13 Impression: No intracranial hemorrhage, mass, or acute infarct. Atrophy and chronic white matter changes, as above. Wrist X-Ray 01/20/25 06:13 Impression: Probable chronic fracture deformities of the distal radius and ulnar styloid process, as detailed above. No definite acute fracture. Chest X-Ray 01/21/25 06:09 Impression: Small left pleural effusion with left basilar atelectasis versus pneumonia. Probable mild central pulmonary edema. Support tubes, as above. Renal Ultrasound 01/21/25 08:42 IMPRESSION: 1. Medical renal disease. 2. Mild bilateral hydronephrosis. No nephrolithiasis. Labs Labs: Laboratory Results - last 24 hr 01/20/25 01/20/25 01/20/25 02:00 05:17 09:23 WBC RBC Hgb Hct MCV MCH MCHC RDW Plt Count MPV Immature Gran % (Auto) Neut % (Auto) Lymph % (Auto) [place] % (Auto) Eos % (Auto) Baso % (Auto) Lymph # (Auto) [place] # (Auto) Eos # (Auto) Baso # (Auto) Abs Immat Gran (auto) Absolute Neuts (auto) Absolute Nucleated RBC Nucleated RBC % % Immature Plt Fraction PT INR APTT Fibrinogen D-Dimer Puncture Site Not Reportable ABG pH 7.384 ABG pCO2 42.4 ABG pO2 < 27.0 L* ABG PO2/FiO2 Ratio Not Reportable ABG HCO3 24.7 ABG O2 Saturation Not Reportable ABG O2 Content Not Reportable ABG Base Excess -0.3 A-a Gradient Not Reportable Oxyhemoglobin 36.7 L* Carboxyhemoglobin Methemoglobin Reduced Hemoglobin Total Hemoglobin 9.4 L O2 Delivery Device Ventilator O2 Liters/Min Not Reportable Minute Volume Not Reportable Not Reportable Vent Rate 14 14 Vent Mode Cmv Cmv FiO2 40 Tidal Volume 320 320 PEEP 5 5 Peak Inspir Pressure Not Reportable Not Reportable Pressure Support Not Reportable Not Reportable Sodium Potassium Chloride Carbon Dioxide Anion Gap BUN Creatinine Estim Creat Clear Calc Estimated GFR Glucose POC Capillary Glucose Calcium Magnesium Total Bilirubin AST ALT Alkaline Phosphatase Total Creatine Kinase Total Protein Albumin Urine Eosinophils U Random Total Protein Ur Random Sodium Ur Random Urea Urine Creatinine Protein/Creat Ratio 2 Random Vancomycin Cryoglobulin % Cryoglobulin Qualit Hepatitis A IgM Ab Negative Hep Bs Antigen Negative Hep Bs Antibody Hep B Core Total Ab Hep B Core IgM Ab Negative Hepatitis C Ab Screen Reactive Blood Type O Positive Antibody Screen Negative Crossmatch See Detail 01/20/25 01/20/25 01/20/25 11:23 14:56 14:56 WBC RBC Hgb Hct MCV MCH MCHC RDW Plt Count MPV Immature Gran % (Auto) Neut % (Auto) Lymph % (Auto) [place] % (Auto) Eos % (Auto) Baso % (Auto) Lymph # (Auto) [place] # (Auto) Eos # (Auto) Baso # (Auto) Abs Immat Gran (auto) Absolute Neuts (auto) Absolute Nucleated RBC Nucleated RBC % % Immature Plt Fraction PT INR APTT Fibrinogen D-Dimer Puncture Site ABG pH ABG pCO2 ABG pO2 ABG PO2/FiO2 Ratio ABG HCO3 ABG O2 Saturation ABG O2 Content ABG Base Excess A-a Gradient Oxyhemoglobin Carboxyhemoglobin Methemoglobin Reduced Hemoglobin Total Hemoglobin O2 Delivery Device O2 Liters/Min Minute Volume Vent Rate Vent Mode FiO2 Tidal Volume PEEP Peak Inspir Pressure Pressure Support Sodium Potassium Chloride Carbon Dioxide Anion Gap BUN Creatinine Estim Creat Clear Calc Estimated GFR Glucose POC Capillary Glucose 72 Calcium Magnesium Total Bilirubin AST ALT Alkaline Phosphatase Total Creatine Kinase Total Protein Albumin Urine Eosinophils None seen U Random Total Protein 70 71 Ur Random Sodium 12 Ur Random Urea 789 Urine Creatinine 36.5 Protein/Creat Ratio 2 Random Vancomycin Cryoglobulin % Cryoglobulin Qualit Hepatitis A IgM Ab Hep Bs Antigen Hep Bs Antibody Hep B Core Total Ab Hep B Core IgM Ab Hepatitis C Ab Screen Blood Type Antibody Screen Crossmatch 01/20/25 01/20/25 01/20/25 14:56 15:11 15:11 WBC Cancelled 8.5 RBC Cancelled Hgb Hct MCV MCH MCHC RDW Plt Count MPV Immature Gran % (Auto) Neut % (Auto) Lymph % (Auto) [place] % (Auto) Eos % (Auto) Baso % (Auto) Lymph # (Auto) [place] # (Auto) Eos # (Auto) Baso # (Auto) Abs Immat Gran (auto) Absolute Neuts (auto) Absolute Nucleated RBC Nucleated RBC % % Immature Plt Fraction PT INR APTT Fibrinogen D-Dimer Puncture Site ABG pH ABG pCO2 ABG pO2 ABG PO2/FiO2 Ratio ABG HCO3 ABG O2 Saturation ABG O2 Content ABG Base Excess A-a Gradient Oxyhemoglobin Carboxyhemoglobin Methemoglobin Reduced Hemoglobin Total Hemoglobin O2 Delivery Device O2 Liters/Min Minute Volume Vent Rate Vent Mode FiO2 Tidal Volume PEEP Peak Inspir Pressure Pressure Support Sodium Potassium Chloride Carbon Dioxide Anion Gap BUN Creatinine Estim Creat Clear Calc Estimated GFR Glucose POC Capillary Glucose Calcium Magnesium Total Bilirubin AST ALT Alkaline Phosphatase Total Creatine Kinase Total Protein Albumin Urine Eosinophils U Random Total Protein Ur Random Sodium Ur Random Urea Urine Creatinine 37.1 Protein/Creat Ratio 2 1.92 H Random Vancomycin Cryoglobulin % Cryoglobulin Qualit Hepatitis A IgM Ab Hep Bs Antigen Hep Bs Antibody Hep B Core Total Ab Hep B Core IgM Ab Hepatitis C Ab Screen Blood Type Antibody Screen Crossmatch 01/20/25 01/20/25 01/20/25 15:11 15:11 15:11 WBC RBC 2.11 L Hgb Cancelled 6.1 L* Hct Cancelled 18.6 L* MCV Cancelled MCH MCHC RDW Plt Count MPV Immature Gran % (Auto) Neut % (Auto) Lymph % (Auto) [place] % (Auto) Eos % (Auto) Baso % (Auto) Lymph # (Auto) [place] # (Auto) Eos # (Auto) Baso # (Auto) Abs Immat Gran (auto) Absolute Neuts (auto) Absolute Nucleated RBC Nucleated RBC % % Immature Plt Fraction PT INR APTT Fibrinogen D-Dimer Puncture Site ABG pH ABG pCO2 ABG pO2 ABG PO2/FiO2 Ratio ABG HCO3 ABG O2 Saturation ABG O2 Content ABG Base Excess A-a Gradient Oxyhemoglobin Carboxyhemoglobin Methemoglobin Reduced Hemoglobin Total Hemoglobin O2 Delivery Device O2 Liters/Min Minute Volume Vent Rate Vent Mode FiO2 Tidal Volume PEEP Peak Inspir Pressure Pressure Support Sodium Potassium Chloride Carbon Dioxide Anion Gap BUN Creatinine Estim Creat Clear Calc Estimated GFR Glucose POC Capillary Glucose Calcium Magnesium Total Bilirubin AST ALT Alkaline Phosphatase Total Creatine Kinase Total Protein Albumin Urine Eosinophils U Random Total Protein Ur Random Sodium Ur Random Urea Urine Creatinine Protein/Creat Ratio 2 Random Vancomycin Cryoglobulin % Cryoglobulin Qualit Hepatitis A IgM Ab Hep Bs Antigen Hep Bs Antibody Hep B Core Total Ab Hep B Core IgM Ab Hepatitis C Ab Screen Blood Type Antibody Screen Crossmatch 01/20/25 01/20/25 01/20/25 15:11 15:11 15:11 WBC RBC Hgb Hct MCV 88.2 MCH Cancelled 28.9 MCHC Cancelled 32.8 RDW Cancelled Plt Count MPV Immature Gran % (Auto) Neut % (Auto) Lymph % (Auto) [place] % (Auto) Eos % (Auto) Baso % (Auto) Lymph # (Auto) [place] # (Auto) Eos # (Auto) Baso # (Auto) Abs Immat Gran (auto) Absolute Neuts (auto) Absolute Nucleated RBC Nucleated RBC % % Immature Plt Fraction PT INR APTT Fibrinogen D-Dimer Puncture Site ABG pH ABG pCO2 ABG pO2 ABG PO2/FiO2 Ratio ABG HCO3 ABG O2 Saturation ABG O2 Content ABG Base Excess A-a Gradient Oxyhemoglobin Carboxyhemoglobin Methemoglobin Reduced Hemoglobin Total Hemoglobin O2 Delivery Device O2 Liters/Min Minute Volume Vent Rate Vent Mode FiO2 Tidal Volume PEEP Peak Inspir Pressure Pressure Support Sodium Potassium Chloride Carbon Dioxide Anion Gap BUN Creatinine Estim Creat Clear Calc Estimated GFR Glucose POC Capillary Glucose Calcium Magnesium Total Bilirubin AST ALT Alkaline Phosphatase Total Creatine Kinase Total Protein Albumin Urine Eosinophils U Random Total Protein Ur Random Sodium Ur Random Urea Urine Creatinine Protein/Creat Ratio 2 Random Vancomycin Cryoglobulin % Cryoglobulin Qualit Hepatitis A IgM Ab Hep Bs Antigen Hep Bs Antibody Hep B Core Total Ab Hep B Core IgM Ab Hepatitis C Ab Screen Blood Type Antibody Screen Crossmatch 01/20/25 01/20/25 01/20/25 15:11 15:11 15:11 WBC RBC Hgb Hct MCV MCH MCHC RDW 15.0 H Plt Count Cancelled 126 L MPV Cancelled 9.0 Immature Gran % (Auto) Neut % (Auto) Lymph % (Auto) [place] % (Auto) Eos % (Auto) Baso % (Auto) Lymph # (Auto) [place] # (Auto) Eos # (Auto) Baso # (Auto) Abs Immat Gran (auto) Absolute Neuts (auto) Absolute Nucleated RBC Nucleated RBC % % Immature Plt Fraction Cancelled PT 17.8 H INR 1.5 APTT 51.5 H Fibrinogen 216 D-Dimer 2.19 H Puncture Site ABG pH ABG pCO2 ABG pO2 ABG PO2/FiO2 Ratio ABG HCO3 ABG O2 Saturation ABG O2 Content ABG Base Excess A-a Gradient Oxyhemoglobin Carboxyhemoglobin Methemoglobin Reduced Hemoglobin Total Hemoglobin O2 Delivery Device O2 Liters/Min Minute Volume Vent Rate Vent Mode FiO2 Tidal Volume PEEP Peak Inspir Pressure Pressure Support Sodium 133 L Potassium 2.9 L Chloride 100 Carbon Dioxide 25 Anion Gap 8 BUN 96 H D Creatinine 2.63 H Estim Creat Clear Calc 13 Estimated GFR 19 L Glucose 101 POC Capillary Glucose Calcium 7.5 L Magnesium 1.8 Total Bilirubin AST ALT Alkaline Phosphatase Total Creatine Kinase Total Protein Albumin Urine Eosinophils U Random Total Protein Ur Random Sodium Ur Random Urea Urine Creatinine Protein/Creat Ratio 2 Random Vancomycin Cryoglobulin % Cryoglobulin Qualit Hepatitis A IgM Ab Hep Bs Antigen Hep Bs Antibody Hep B Core Total Ab Hep B Core IgM Ab Hepatitis C Ab Screen Blood Type Antibody Screen Crossmatch 01/20/25 01/20/25 01/21/25 17:57 23:35 01:08 WBC RBC Hgb Hct MCV MCH MCHC RDW Plt Count MPV Immature Gran % (Auto) Neut % (Auto) Lymph % (Auto) [place] % (Auto) Eos % (Auto) Baso % (Auto) Lymph # (Auto) [place] # (Auto) Eos # (Auto) Baso # (Auto) Abs Immat Gran (auto) Absolute Neuts (auto) Absolute Nucleated RBC Nucleated RBC % % Immature Plt Fraction PT INR APTT Fibrinogen D-Dimer Puncture Site ABG pH ABG pCO2 ABG pO2 ABG PO2/FiO2 Ratio ABG HCO3 ABG O2 Saturation ABG O2 Content ABG Base Excess A-a Gradient Oxyhemoglobin Carboxyhemoglobin Methemoglobin Reduced Hemoglobin Total Hemoglobin O2 Delivery Device O2 Liters/Min Minute Volume Vent Rate Vent Mode FiO2 Tidal Volume PEEP Peak Inspir Pressure Pressure Support Sodium 136 L Potassium 3.7 Chloride 103 Carbon Dioxide 24 Anion Gap 9 BUN 88 H Creatinine 2.74 H Estim Creat Clear Calc 13 Estimated GFR 18 L Glucose 82 POC Capillary Glucose 87 82 Calcium 8.3 L Magnesium 1.8 Total Bilirubin AST ALT Alkaline Phosphatase Total Creatine Kinase Total Protein Albumin Urine Eosinophils U Random Total Protein Ur Random Sodium Ur Random Urea Urine Creatinine Protein/Creat Ratio 2 Random Vancomycin Cryoglobulin % Cryoglobulin Qualit Hepatitis A IgM Ab Hep Bs Antigen Hep Bs Antibody Hep B Core Total Ab Hep B Core IgM Ab Hepatitis C Ab Screen Blood Type Antibody Screen Crossmatch 01/21/25 01/21/25 01/21/25 03:44 05:31 06:36 WBC 8.9 RBC 2.24 L Hgb 6.3 L* Hct 20.2 L* MCV 90.2 MCH 28.1 MCHC 31.2 L RDW 16.4 H Plt Count 70 L MPV 10.2 Immature Gran % (Auto) 0.8 H Neut % (Auto) 84.1 H Lymph % (Auto) 7.6 L [place] % (Auto) 7.1 Eos % (Auto) 0.4 Baso % (Auto) 0.0 L Lymph # (Auto) 0.68 L [place] # (Auto) 0.6 Eos # (Auto) 0.0 Baso # (Auto) 0.0 Abs Immat Gran (auto) 0.07 H Absolute Neuts (auto) 7.5 H Absolute Nucleated RBC 0.020 H Nucleated RBC % 0.2 % Immature Plt Fraction 2.0 PT INR APTT Fibrinogen D-Dimer Puncture Site Right radial ABG pH 7.383 ABG pCO2 43.7 ABG pO2 72.2 L ABG PO2/FiO2 Ratio 1.20 ABG HCO3 25.4 ABG O2 Saturation 94.3 L ABG O2 Content 9.0 L ABG Base Excess 0.3 A-a Gradient 307.5 Oxyhemoglobin 92.5 Carboxyhemoglobin 1.1 Methemoglobin 0.7 Reduced Hemoglobin 5.7 H Total Hemoglobin 6.8 L* O2 Delivery Device Ventilator O2 Liters/Min Not Reportable Minute Volume Not Reportable Vent Rate 14 Vent Mode Cmv FiO2 60 Tidal Volume 320 PEEP 10 Peak Inspir Pressure Not Reportable Pressure Support Not Reportable Sodium 137 Potassium 3.4 Chloride 104 Carbon Dioxide 24 Anion Gap 9 BUN 86 H Creatinine 2.64 H Estim Creat Clear Calc 13 Estimated GFR 18 L Glucose 85 POC Capillary Glucose Calcium 8.1 L Magnesium Total Bilirubin 2.3 H AST 27 ALT 41 H Alkaline Phosphatase 54 Total Creatine Kinase < 20 L Total Protein 4.8 L Albumin 2.9 L Urine Eosinophils U Random Total Protein Ur Random Sodium Ur Random Urea Urine Creatinine Protein/Creat Ratio 2 Random Vancomycin < 5.0 L Cryoglobulin % Cancelled Cryoglobulin Qualit Cancelled Hepatitis A IgM Ab Hep Bs Antigen Hep Bs Antibody Negative Hep B Core Total Ab Cancelled Hep B Core IgM Ab Hepatitis C Ab Screen Blood Type Antibody Screen Crossmatch Quality VTE Prophylaxis VTE prophylaxis: mechanical ordered
[2025-01-21] MEDS: POTASSIUM CHLORIDE 20 MEQ PACKET (FOR LIQUID) 40 MEQ PO (09:23)
--- NOTE | 2025-01-21 10:47 | PCFNICU ---
ICU Rounding Note: Pt current nutrition is Nepro at 20 ml/hr. Last recorded weight is 40.1 kg, stable Bowel Motility: No BM reported. Labs Reviewed: Cr 2.64, BUN 86, HCt 20.2, Alb 2.9, Hgb 6.3 Meds Noted:Fentanyl, Versed,Thiamine, Folic Acid. Skin: WNL Additional Notes: Patient current with mechanical vent. EGD 01/20. Tube feedings started of Nepro at 20 ml/hr with Flush 30 ml q 4 hours. Recommend goal rate of 35 ml/hr when advancing. Following daily in ICU rounds. Will monitor weight, labs, skin, diet orders, meds every Saturday and Saturday.
[2025-01-21] MEDS: FUROSEMIDE INJ 100 MG/10 ML VIAL 80 MG IV PUSH (11:06)
[2025-01-21 12:39] LABS: Hematocrit 28.3 % (37.0-47.0); Hemoglobin 9.1 g/dL (12.0-15.0); Immature Platelet Fraction Pct 2.0 % (0.9-11.2); Mean Corpuscular HGB Conc 32.2 g/dl (32-36); Mean Corpuscular Hemoglobin 29.0 pg (26-34); Mean Corpuscular Volume 90.1 fl (80-100); Platelet Count Result 67 k/mm3 (150-375); Red Blood Count 3.14 M/mm3 (4.2-5.4); White Blood Count 9.0 K/mm3 (4.5-10.0)
--- NOTE | 2025-01-21 13:08 | P.PNNP_ITS ---
Progress Note: A&P Assessment and Plan (1) Acute kidney injury: Code(s): N17.9 - Acute kidney failure, unspecified Status: Acute Assessment and Plan: * as noted on admission (creatinine of 3.43mg/dl) * some improvement note by trend of labs * likely due to multiple issues: * prerenal factors (poor nutrition) * anemia/GI bleed * infection/sepsis * respiratory failure * hypoxia * liver disease/cirrhosis * progression of underlying CKD * other(?) * evaluation to date noted: * renal ultrasound with CKD and mild bilateral hydronephrosis - chronic issue?? --> mcqueen catheter in place * urine electrolytes prerenal - suspect due to a combination of poor oral intake AND liver disease/physiology (decreased effective circulating volume) * urine eosinophils negative * CPK low * ~ 2 grams of proteinuria * maintain hemodynamics and H/H as tolerated * remains at risk for [employer]/dialysis * follow trend of repeat labs and UOP (2) Stage 4 chronic kidney disease: Code(s): N18.4 - Chronic kidney disease, stage 4 (severe) Status: Chronic Assessment and Plan: * not entirely clear what baseline creatinine really is.... * was noted to be ~ 1.4 - 1.6mg/dl in June 2024 * however, since December 2024, has been running ~ 2.4 - 2.6mg/dl (from record review from [facility]) * most recent labs done on 01/15/25 -- creatinine up to 2.79mg/dl (ER visit at [facility] prior to leaving [place]) (3) Acute upper GI bleeding: Code(s): K92.2 - Gastrointestinal hemorrhage, unspecified Status: Acute Assessment and Plan: * suspected based on admission events/presentation * GI following * s/p EGD (on 01/20): * noted erosive esophagitis but no varices or bleeding lesions noted * PRBC transfusion per protocol * corrected coagulopathy * IV PPI * follow trend on H/H (4) Acute hypoxic respiratory failure: Code(s): J96.01 - Acute respiratory failure with hypoxia Status: Acute Assessment and Plan: * multifactorial: * inability to protect airway * aspiration pneumonia * pleural effusions * suspected upper GI bleed * complicated by underlying COPD * imaging noted - mild pulmonary edema * IV diuretics PRN * ventilator weaning as tolerated (5) Sepsis: Code(s): A41.9 - Sepsis, unspecified organism Status: Acute Assessment and Plan: * possibly from pneumonia (aspiration) versus UTI * follow culture data * on antibiotics * stable hemodynamics noted (6) Anemia: Code(s): D64.9 - Anemia, unspecified Status: Acute Assessment and Plan: * due to several issues: * due to underlying CKD * iron deficiency * #3 - GI following * liver dissease * coagulopathy * other * PRBC transfusion as needed * Epogen while hospitalized * follow trend of H/H (7) Coagulopathy: Code(s): D68.9 - Coagulation defect, unspecified Status: Acute Assessment and Plan: * porbably secondary to liver cirrhosis * complicated by thrombocytopenia also related to liver disease * s/p cryoprecipitate, platelets, and FFP transfusion * follow INR (8) Alcoholic cirrhosis of liver with ascites: Code(s): K70.31 - Alcoholic cirrhosis of liver with ascites Status: Acute Assessment and Plan: * as evidence by admission CT/imaging findings * presumably partly related to alcohol intake * GI following (9) Transaminitis: Code(s): R74.01 - Elevation of levels of liver transaminase levels Status: Acute Assessment and Plan: * noted by admission labs * suspect secondary to/consistent with with alcoholic liver disease. * hepatitis panel noted (10) Acetabular fracture: Qualifiers: Encounter type: initial encounter Fracture alignment: nondisplaced F racture type: closed Laterality: right Sublocation of acetabulum: unspecified portion of acetabulum Qualified Code(s): S32.401A - Unspecified fracture of right acetabulum, initial encounter for closed fracture Code(s): S32.409A - Unspecified fracture of unspecified acetabulum, initial encounter for closed fracture Status: Acute Assessment and Plan: * as noted by admission CT imaging: * fractures of the right anterior acetabulum at the junction of the right superior pubic ramus and of the right inferior pubic ramus, acute to subacute in nature * Orthopedic Surgery consulted * not likely a surgical candidate at this time (11) Distal radial fracture: Qualifiers: Encounter type: subsequent encounter Fracture healing: with nonunion F racture morphology: unspecified fracture morphology Fracture type: closed L aterality: left Qualified Code(s): S52.502K - Unspecified fracture of the lower end of left radius, subsequent encounter for closed fracture with nonunion Code(s): S52.509A - Unspecified fracture of the lower end of unspecified radius, initial encounter for closed fracture Status: Acute Assessment and Plan: * apparently chronic in nature by X-rays * splint in place * Orthopedic Surgery consulted (12) Alcohol abuse: Code(s): F10.10 - Alcohol abuse, uncomplicated Status: Acute Assessment and Plan: * known history * monitor for withdrawal (although currently sedated) * on IV thiamine and folate Will continue to follow. L Subjective Date/time seen: 01/21/25 13:08 Interval history: Follow-up for acute kidney injury/acute renal failure on chronic kidney disease. Status post EGD yesterday with noted findings; remains intubated/sedated and on mechanical ventilation; remains hemodynamically stable without the need for vasopressor therapy; noted fluctuating H/H and need for PRBC transfusion; renal function relatively stable with reasonable urine output noted. Exam 2 Narrative: General: chronically ill-appearing and cachetic female intubated/sedated and on mechanical ventilation Heart: normal S1 and S2; no rub Lungs: coarse breath sounds; decreased throughout Abdomen: soft, nontender, nondistended, positive bowel sounds Extremities: no cyanosis or clubbing; no edema Skin: warm and dry Objective Data Vital Signs Vital Signs: Vital Signs Temp Pulse Resp BP Pulse Ox O2 Del Method FiO2 01/21/25 12:10 97.5 F L 68 13 132/93 H 100 01/21/25 12:00 60 01/21/25 12:00 97.5 F L 67 14 134/92 H 100 01/21/25 12:00 67 14 100 Mechanical Ventilation 40 01/21/25 12:00 67 14 01/21/25 12:00 67 14 01/21/25 11:33 97.6 F 65 14 131/87 100 01/21/25 11:24 65 100 Mechanical Ventilation 60 01/21/25 11:17 97.7 F 65 14 128/85 100 01/21/25 11:03 97.6 F 66 14 131/87 100 01/21/25 10:19 97.6 F 65 14 130/86 99 01/21/25 10:01 97.6 F 65 14 128/83 100 01/21/25 10:00 65 01/21/25 10:00 97.7 F 64 14 128/83 100 01/21/25 10:00 64 14 01/21/25 10:00 64 14 01/21/25 09:06 97.6 F 64 16 131/84 100 01/21/25 08:29 97.6 F 65 14 136/86 100 01/21/25 08:00 60 01/21/25 08:00 65 01/21/25 08:00 65 14 01/21/25 08:00 65 14 01/21/25 08:00 97.5 F L 65 14 133/82 01/21/25 08:00 65 14 97 Mechanical Ventilation 40 01/21/25 07:29 97.2 F L 66 14 136/86 100 01/21/25 07:17 67 100 Mechanical Ventilation 60 01/21/25 06:29 97.0 F L 62 14 132/82 100 01/21/25 06:12 96.9 F L 63 14 132/82 100 01/21/25 06:00 63 14 01/21/25 06:00 63 14 01/21/25 06:00 63 01/21/25 06:00 96.8 F L 63 14 133/84 100 01/21/25 05:45 96.8 F L 63 14 130/82 100 01/21/25 04:40 96.7 F L 66 12 131/89 100 01/21/25 04:35 66 100 Mechanical Ventilation 60 01/21/25 04:00 70 14 01/21/25 04:00 70 14 01/21/25 04:00 71 01/21/25 04:00 97.6 F 70 14 136/86 100 01/21/25 04:00 60 01/21/25 04:00 100 Mechanical Ventilation 60 01/21/25 03:40 97.7 F 68 14 129/85 100 01/21/25 03:25 97.7 F 67 14 131/87 100 01/21/25 02:45 97.6 F 67 16 134/87 100 01/21/25 02:14 68 100 Mechanical Ventilation 60 01/21/25 02:05 97.7 F 67 14 133/85 100 01/21/25 02:00 67 14 01/21/25 02:00 67 14 01/21/25 02:00 97.7 F 67 14 133/85 100 01/21/25 02:00 67 01/21/25 01:05 97.8 F 68 14 132/88 100 01/21/25 00:05 98.0 F 70 14 133/87 100 01/21/25 00:00 69 01/21/25 00:00 70 14 01/21/25 00:00 70 14 01/21/25 00:00 100 Mechanical Ventilation 60 01/21/25 00:00 98.0 F 70 14 133/87 100 01/21/25 00:00 60 01/20/25 23:45 98.0 F 69 14 133/83 100 01/20/25 23:23 97.7 F 86 16 110/62 92 01/20/25 23:05 74 100 Mechanical Ventilation 60 01/20/25 22:00 77 01/20/25 22:00 98.2 F 77 14 141/90 H 95 01/20/25 22:00 77 14 01/20/25 22:00 77 14 01/20/25 21:00 98.0 F 71 14 129/89 100 01/20/25 20:00 71 01/20/25 20:00 100 Mechanical Ventilation 60 01/20/25 20:00 60 01/20/25 20:00 71 14 01/20/25 20:00 71 14 01/20/25 19:55 71 100 Mechanical Ventilation 60 01/20/25 18:00 98.4 F 81 14 147/93 H 94 01/20/25 18:00 80 01/20/25 17:33 75 96 Mechanical Ventilation 60 01/20/25 17:32 74 97 Mechanical Ventilation 60 Intake/Output Intake/Output: Intake & Output 01/18/25 01/19/25 01/20/25 01/21/25 23:59 23:59 23:59 23:59 Intake Total 4025.8 2157 Output Total 1330 400 Balance 2695.8 1757 Meds/Results Medications: Active Medications Generic Name Dose Route Start Last Admin Trade Name Freq PRN Reason Stop Dose Admin Dextrose 12.5 gm 01/20/25 08:23 Dextrose 50% 25 Gm/50 Ml Syringe IV PUSH PRN PRN Hypoglycemia Protocol Folic Acid 1 mg 01/20/25 09:00 01/21/25 09:10 Folic Acid 1 Mg/0.2 Ml Inj IV PUSH 1 mg QAM MEENA Administration Glucagon 1 mg 01/20/25 08:23 Glucagon For Inj 1 Mg Vial IM PRN PRN Hypoglycemia Protocol Glucose 15 gm 01/20/25 08:23 Glucose Oral Gel 15 Gm Of Glucse In 37.5 Gm Tube PO PRN PRN Hypoglycemia Protocol Dextrose 1,000 mls @ 100 mls/hr 01/20/25 08:23 Dextrose 5% 1,000 Ml IVPB PRN PRN Hypoglycemia Protocol Fentanyl Citrate 2,500 mcg in 250 mls @ 5 mls/hr 01/21/25 00:05 01/21/25 12:00 Fentanyl 2,500 Mcg/Ns 250 Ml IV CONT 50 mcg/hr .Q50H MEENA 5 mls/hr Protocol Titration 50 MCG/HR Midazolam HCl 100 mg in 100 mls @ 4 mls/hr 01/21/25 00:05 01/21/25 12:00 Versed 100 Mg/Ns 100 Ml IV CONT 4 mg/hr .Q25H MEENA 4 mls/hr Protocol Titration 4 MG/HR Piperacillin Sod/Tazobactam 50 mls @ 100 mls/hr 01/21/25 08:00 01/21/25 09:40 Sod 2.25 gm/ Sodium Chloride IVPB Infused Q8H MEENA Infusion Insulin Aspart 3 - 6 units 01/20/25 12:00 01/21/25 14:05 Insulin Aspart (*Bkc) 100 Units/Ml SUB-Q Not Given Q6HR [facility] Protocol Mupirocin 1 applic 01/20/25 09:00 01/21/25 09:11 Mupirocin 2% Oint 22 Gm Tube EACH NARE 01/24/25 21:01 1 applic Q12HR MEENA Administration Pantoprazole Sodium 40 mg 01/21/25 09:00 01/21/25 09:09 Pantoprazole Sodium Iv 40 Mg Vial IV PUSH 40 mg Q12HR MEENA Administration Sodium Chloride 10 ml 01/20/25 06:00 01/21/25 06:43 Central Line Flush IV PUSH 10 ml Q8HR MEENA Administration Sodium Chloride 20 ml 01/20/25 01:15 Central Line Flush IV PUSH PRN PRN after blood draws Thiamine HCl 100 mg 01/20/25 09:00 01/21/25 09:09 Thiamine Hcl 200 Mg/2 Ml Vial IV PUSH 100 mg QAM MEENA Administration Radiology Results: ITS Impressions Abdomen X-Ray 01/20/25 05:42 Impression: NG tube in satisfactory position. Small left pleural effusion. Chest/Abdomen/Pelvis CT 01/20/25 05:48 Impression: Moderate to large left pleural effusion with extensive left lower lobe atelectasis. Small right pleural effusion. 9 mm spiculated nodule in the right lower lobe, as detailed above, indeterminate. CT scan in 3 months advised. Consider PET/CT or attempted tissue sampling as indicated. Moderate emphysema. No definite evidence for GI bleed, but evaluation is limited without IV contrast and with oral contrast on board. Consider follow-up CT angiogram of the bowel to further evaluate for GI bleed, as indicated. Moderate abdominopelvic ascites. T12 compression fracture, somewhat age indeterminate, but new since 06/20/2024. Fractures of the right anterior acetabulum at the junction of the right superior pubic ramus and of the right inferior pubic ramus, acute to subacute in nature. Head CT 01/20/25 06:13 Impression: No intracranial hemorrhage, mass, or acute infarct. Atrophy and chronic white matter changes, as above. Wrist X-Ray 01/20/25 06:13 Impression: Probable chronic fracture deformities of the distal radius and ulnar styloid process, as detailed above. No definite acute fracture. Chest X-Ray 01/21/25 06:09 Impression: Small left pleural effusion with left basilar atelectasis versus pneumonia. Probable mild central pulmonary edema. Support tubes, as above. Renal Ultrasound 01/21/25 08:42 IMPRESSION: 1. Medical renal disease. 2. Mild bilateral hydronephrosis. No nephrolithiasis. Labs Labs: Laboratory Tests 01/21/25 12:30 01/21/25 06:36 WBC 8.9 Hgb 6.3 L* Hct 20.2 L* Plt Count 70 L Calcium 8.1 L Total Bilirubin 2.3 H AST 27 ALT 41 H Alkaline Phosphatase 54 Total Creatine Kinase < 20 L Total Protein 4.8 L Albumin 2.9 L
--- NOTE | 2025-01-21 14:03 | PC.NURSE ---
To GI Lab per kyung IV x1. Report given to RHONDA Gibson who is accompanying the patient to GI lab.
--- NOTE | 2025-01-21 17:13 | P.PNGI_ITS ---
Progress Note: A&P Assessment and Plan (1) Erosive esophagitis: Code(s): K22.10 - Ulcer of esophagus without bleeding Status: Acute Assessment and Plan: noted yesterday in egd no varices or active bleeding continue with iv protonix (2) Alcoholic cirrhosis of liver with ascites: Code(s): K70.31 - Alcoholic cirrhosis of liver with ascites Status: Acute Assessment and Plan: meld score on admission 23 alcohol related supportive care (3) Severe protein-calorie malnutrition: Code(s): E43 - Unspecified severe protein-calorie malnutrition Status: Acute Assessment and Plan: tube feeding by ogt (4) Acute kidney injury: Code(s): N17.9 - Acute kidney failure, unspecified Status: Acute Assessment and Plan: will monitor BP is normal she has CKD, differential includes ATN, from bleeding, also ? HRS (5) Acute upper GI bleeding: Code(s): K92.2 - Gastrointestinal hemorrhage, unspecified Status: Acute Assessment and Plan: severe esophagitis (6) Thrombocytopenia: Code(s): D69.6 - Thrombocytopenia, unspecified Status: Acute Assessment and Plan: probably from liver disease (7) Acute hypoxic respiratory failure: Code(s): J96.01 - Acute respiratory failure with hypoxia Status: Acute (8) Acute on chronic anemia: Code(s): D64.9 - Anemia, unspecified Status: Acute Subjective Date/time seen: 01/21/25 17:13 Interval history: still intubated egd showed erosive esophagitis tube feeding at 20 ml/h per OGT Review of Systems Review of Systems: All systems reviewed & are unremarkable except as noted in HPI and below Exam Narrative: General: Pt is cachectic old female who looks much older than her age. She is Sedated, intubated and on mechanical ventilation neck: supple Lungs/Chest: Trachea central Coarse BS B/L, No crackles or wheezing. Overall decreased air movement throughout lungs with barrel chest Cardiac: RRR. Normal S1 S2. No murmurs Circulation: Pedal pulses are intact and symmetrical. Abdomen: Decreased bowel sounds.. Soft. NT. ND. Extremities: No clubbing, cyanosis or edema. Feet are cold : Mclean in place Neurologic: Unable to assess due to sedation. She tries to open her eyes on painful stimuli PERRL Skin: Petechia on the chest Objective Data Vital Signs Vital Signs: Vital Signs - 24 hr 01/20/25 17:32 01/20/25 17:33 01/20/25 18:00 Temperature Pulse Rate 74 75 80 Respiratory Rate Blood Pressure Pulse Oximetry 97 96 Oxygen Delivery Mechanical Ventilation Mechanical Ventilation Fraction of Inspired Oxygen 60 60 01/20/25 18:00 01/20/25 19:55 01/20/25 20:00 Temperature 98.4 F Pulse Rate 81 71 71 Respiratory Rate 14 14 Blood Pressure 147/93 H Pulse Oximetry 94 100 Oxygen Delivery Mechanical Ventilation Fraction of Inspired Oxygen 60 01/20/25 20:00 01/20/25 20:00 01/20/25 20:00 Temperature Pulse Rate 71 Respiratory Rate 14 Blood Pressure Pulse Oximetry 100 Oxygen Delivery Mechanical Ventilation Fraction of Inspired Oxygen 60 60 01/20/25 20:00 01/20/25 21:00 01/20/25 22:00 Temperature 98.0 F Pulse Rate 71 71 77 Respiratory Rate 14 14 Blood Pressure 129/89 Pulse Oximetry 100 Oxygen Delivery Fraction of Inspired Oxygen 01/20/25 22:00 01/20/25 22:00 01/20/25 22:00 Temperature 98.2 F Pulse Rate 77 77 77 Respiratory Rate 14 14 Blood Pressure 141/90 H Pulse Oximetry 95 Oxygen Delivery Fraction of Inspired Oxygen 01/20/25 23:05 01/20/25 23:23 01/20/25 23:45 Temperature 97.7 F 98.0 F Pulse Rate 74 86 69 Respiratory Rate 16 14 Blood Pressure 110/62 133/83 Pulse Oximetry 100 92 100 Oxygen Delivery Mechanical Ventilation Fraction of Inspired Oxygen 60 01/21/25 00:00 01/21/25 00:00 01/21/25 00:00 Temperature 98.0 F Pulse Rate 70 Respiratory Rate 14 Blood Pressure 133/87 Pulse Oximetry 100 100 Oxygen Delivery Mechanical Ventilation Fraction of Inspired Oxygen 60 60 01/21/25 00:00 01/21/25 00:00 01/21/25 00:00 Temperature Pulse Rate 70 70 69 Respiratory Rate 14 14 Blood Pressure Pulse Oximetry Oxygen Delivery Fraction of Inspired Oxygen 01/21/25 00:05 01/21/25 01:05 01/21/25 02:00 Temperature 98.0 F 97.8 F Pulse Rate 70 68 67 Respiratory Rate 14 14 Blood Pressure 133/87 132/88 Pulse Oximetry 100 100 Oxygen Delivery Fraction of Inspired Oxygen 01/21/25 02:00 01/21/25 02:00 01/21/25 02:00 Temperature 97.7 F Pulse Rate 67 67 67 Respiratory Rate 14 14 14 Blood Pressure 133/85 Pulse Oximetry 100 Oxygen Delivery Fraction of Inspired Oxygen 01/21/25 02:05 01/21/25 02:14 01/21/25 02:45 Temperature 97.7 F 97.6 F Pulse Rate 67 68 67 Respiratory Rate 14 16 Blood Pressure 133/85 134/87 Pulse Oximetry 100 100 100 Oxygen Delivery Mechanical Ventilation Fraction of Inspired Oxygen 60 01/21/25 03:25 01/21/25 03:40 01/21/25 04:00 Temperature 97.7 F 97.7 F Pulse Rate 67 68 Respiratory Rate 14 14 Blood Pressure 131/87 129/85 Pulse Oximetry 100 100 100 Oxygen Delivery Mechanical Ventilation Fraction of Inspired Oxygen 60 01/21/25 04:00 01/21/25 04:00 01/21/25 04:00 Temperature 97.6 F Pulse Rate 70 71 Respiratory Rate 14 Blood Pressure 136/86 Pulse Oximetry 100 Oxygen Delivery Fraction of Inspired Oxygen 60 01/21/25 04:00 01/21/25 04:00 01/21/25 04:35 Temperature Pulse Rate 70 70 66 Respiratory Rate 14 14 Blood Pressure Pulse Oximetry 100 Oxygen Delivery Mechanical Ventilation Fraction of Inspired Oxygen 60 01/21/25 04:40 01/21/25 05:45 01/21/25 06:00 Temperature 96.7 F L 96.8 F L 96.8 F L Pulse Rate 66 63 63 Respiratory Rate 12 14 14 Blood Pressure 131/89 130/82 133/84 Pulse Oximetry 100 100 100 Oxygen Delivery Fraction of Inspired Oxygen 01/21/25 06:00 01/21/25 06:00 01/21/25 06:00 Temperature Pulse Rate 63 63 63 Respiratory Rate 14 14 Blood Pressure Pulse Oximetry Oxygen Delivery Fraction of Inspired Oxygen 01/21/25 06:12 01/21/25 06:29 01/21/25 07:17 Temperature 96.9 F L 97.0 F L Pulse Rate 63 62 67 Respiratory Rate 14 14 Blood Pressure 132/82 132/82 Pulse Oximetry 100 100 100 Oxygen Delivery Mechanical Ventilation Fraction of Inspired Oxygen 60 01/21/25 07:29 01/21/25 08:00 01/21/25 08:00 Temperature 97.2 F L 97.5 F L Pulse Rate 66 65 65 Respiratory Rate 14 14 14 Blood Pressure 136/86 133/82 Pulse Oximetry 100 97 Oxygen Delivery Mechanical Ventilation Fraction of Inspired Oxygen 40 01/21/25 08:00 01/21/25 08:00 01/21/25 08:00 Temperature Pulse Rate 65 65 65 Respiratory Rate 14 14 Blood Pressure Pulse Oximetry Oxygen Delivery Fraction of Inspired Oxygen 01/21/25 08:00 01/21/25 08:29 01/21/25 09:06 Temperature 97.6 F 97.6 F Pulse Rate 65 64 Respiratory Rate 14 16 Blood Pressure 136/86 131/84 Pulse Oximetry 100 100 Oxygen Delivery Fraction of Inspired Oxygen 60 01/21/25 10:00 01/21/25 10:00 01/21/25 10:00 Temperature 97.7 F Pulse Rate 64 64 64 Respiratory Rate 14 14 14 Blood Pressure 128/83 Pulse Oximetry 100 Oxygen Delivery Fraction of Inspired Oxygen 01/21/25 10:00 01/21/25 10:01 01/21/25 10:19 Temperature 97.6 F 97.6 F Pulse Rate 65 65 65 Respiratory Rate 14 14 Blood Pressure 128/83 130/86 Pulse Oximetry 100 99 Oxygen Delivery Fraction of Inspired Oxygen 01/21/25 11:03 01/21/25 11:17 01/21/25 11:24 Temperature 97.6 F 97.7 F Pulse Rate 66 65 65 Respiratory Rate 14 14 Blood Pressure 131/87 128/85 Pulse Oximetry 100 100 100 Oxygen Delivery Mechanical Ventilation Fraction of Inspired Oxygen 60 01/21/25 11:33 01/21/25 12:00 01/21/25 12:00 Temperature 97.6 F Pulse Rate 65 67 67 Respiratory Rate 14 14 14 Blood Pressure 131/87 Pulse Oximetry 100 Oxygen Delivery Fraction of Inspired Oxygen 01/21/25 12:00 01/21/25 12:00 01/21/25 12:00 Temperature 97.5 F L Pulse Rate 67 67 Respiratory Rate 14 14 Blood Pressure 134/92 H Pulse Oximetry 100 100 Oxygen Delivery Mechanical Ventilation Fraction of Inspired Oxygen 40 60 01/21/25 12:10 01/21/25 13:54 01/21/25 14:17 Temperature 97.5 F L Pulse Rate 68 65 63 Respiratory Rate 13 Blood Pressure 132/93 H Pulse Oximetry 100 100 Oxygen Delivery Mechanical Ventilation Fraction of Inspired Oxygen 60 01/21/25 16:05 Temperature Pulse Rate 62 Respiratory Rate Blood Pressure Pulse Oximetry 100 Oxygen Delivery Mechanical Ventilation Fraction of Inspired Oxygen 60 Intake/Output Intake/Output: Intake & Output 01/18/25 01/19/25 01/20/25 01/21/25 23:59 23:59 23:59 23:59 Intake Total 4025.8 2157 Output Total 1330 400 Balance 2695.8 1757 Meds/Results Medications: Active Medications Generic Name Dose Route Start Last Admin Trade Name Freq PRN Reason Stop Dose Admin Dextrose 12.5 gm 01/20/25 08:23 Dextrose 50% 25 Gm/50 Ml Syringe IV PUSH PRN PRN Hypoglycemia Protocol Folic Acid 1 mg 01/20/25 09:00 01/21/25 09:10 Folic Acid 1 Mg/0.2 Ml Inj IV PUSH 1 mg QAM MEENA Administration Glucagon 1 mg 01/20/25 08:23 Glucagon For Inj 1 Mg Vial IM PRN PRN Hypoglycemia Protocol Glucose 15 gm 01/20/25 08:23 Glucose Oral Gel 15 Gm Of Glucse In 37.5 Gm Tube PO PRN PRN Hypoglycemia Protocol Dextrose 1,000 mls @ 100 mls/hr 01/20/25 08:23 Dextrose 5% 1,000 Ml IVPB PRN PRN Hypoglycemia Protocol Fentanyl Citrate 2,500 mcg in 250 mls @ 5 mls/hr 01/21/25 00:05 01/21/25 12:00 Fentanyl 2,500 Mcg/Ns 250 Ml IV CONT 50 mcg/hr .Q50H MEENA 5 mls/hr Protocol Titration 50 MCG/HR Midazolam HCl 100 mg in 100 mls @ 4 mls/hr 01/21/25 00:05 01/21/25 12:00 Versed 100 Mg/Ns 100 Ml IV CONT 4 mg/hr .Q25H MEENA 4 mls/hr Protocol Titration 4 MG/HR Piperacillin Sod/Tazobactam 50 mls @ 100 mls/hr 01/21/25 08:00 01/21/25 09:40 Sod 2.25 gm/ Sodium Chloride IVPB Infused Q8H [facility] Infusion Insulin Aspart 3 - 6 units 01/20/25 12:00 01/21/25 14:05 Insulin Aspart (*Bkc) 100 Units/Ml SUB-Q Not Given Q6HR [facility] Protocol Mupirocin 1 applic 01/20/25 09:00 01/21/25 09:11 Mupirocin 2% Oint 22 Gm Tube EACH NARE 01/24/25 21:01 1 applic Q12HR MEENA Administration Pantoprazole Sodium 40 mg 01/21/25 09:00 01/21/25 09:09 Pantoprazole Sodium Iv 40 Mg Vial IV PUSH 40 mg Q12HR MEENA Administration Sodium Chloride 10 ml 01/20/25 06:00 01/21/25 06:43 Central Line Flush IV PUSH 10 ml Q8HR MEENA Administration Sodium Chloride 20 ml 01/20/25 01:15 Central Line Flush IV PUSH PRN PRN after blood draws Thiamine HCl 100 mg 01/20/25 09:00 01/21/25 09:09 Thiamine Hcl 200 Mg/2 Ml Vial IV PUSH 100 mg QAM MEENA Administration Radiology Results: ITS Impressions Abdomen X-Ray 01/20/25 05:42 Impression: NG tube in satisfactory position. Small left pleural effusion. Chest/Abdomen/Pelvis CT 01/20/25 05:48 Impression: Moderate to large left pleural effusion with extensive left lower lobe atelectasis. Small right pleural effusion. 9 mm spiculated nodule in the right lower lobe, as detailed above, indeterminate. CT scan in 3 months advised. Consider PET/CT or attempted tissue sampling as indicated. Moderate emphysema. No definite evidence for GI bleed, but evaluation is limited without IV contrast and with oral contrast on board. Consider follow-up CT angiogram of the bowel to further evaluate for GI bleed, as indicated. Moderate abdominopelvic ascites. T12 compression fracture, somewhat age indeterminate, but new since 06/20/2024. Fractures of the right anterior acetabulum at the junction of the right superior pubic ramus and of the right inferior pubic ramus, acute to subacute in nature. Head CT 01/20/25 06:13 Impression: No intracranial hemorrhage, mass, or acute infarct. Atrophy and chronic white matter changes, as above. Wrist X-Ray 01/20/25 06:13 Impression: Probable chronic fracture deformities of the distal radius and ulnar styloid process, as detailed above. No definite acute fracture. Chest X-Ray 01/21/25 06:09 Impression: Small left pleural effusion with left basilar atelectasis versus pneumonia. Probable mild central pulmonary edema. Support tubes, as above. Renal Ultrasound 01/21/25 08:42 IMPRESSION: 1. Medical renal disease. 2. Mild bilateral hydronephrosis. No nephrolithiasis. Labs Labs: Laboratory Results - last 24 hr 01/20/25 01/20/25 01/20/25 02:00 15:11 17:57 WBC RBC Hgb Hct MCV MCH MCHC RDW Plt Count MPV Immature Gran % (Auto) Neut % (Auto) Lymph % (Auto) [place] % (Auto) Eos % (Auto) Baso % (Auto) Lymph # (Auto) [place] # (Auto) Eos # (Auto) Baso # (Auto) Abs Immat Gran (auto) Absolute Neuts (auto) Absolute Nucleated RBC Nucleated RBC % % Immature Plt Fraction Puncture Site ABG pH ABG pCO2 ABG pO2 ABG PO2/FiO2 Ratio ABG HCO3 ABG O2 Saturation ABG O2 Content ABG Base Excess A-a Gradient Oxyhemoglobin Carboxyhemoglobin Methemoglobin Reduced Hemoglobin Total Hemoglobin O2 Delivery Device O2 Liters/Min Minute Volume Vent Rate Vent Mode FiO2 Tidal Volume PEEP Peak Inspir Pressure Pressure Support Sodium Potassium Chloride Carbon Dioxide Anion Gap BUN Creatinine Estim Creat Clear Calc Estimated GFR Glucose POC Capillary Glucose 87 Calcium Magnesium 1.8 Total Bilirubin AST ALT Alkaline Phosphatase Total Creatine Kinase Total Protein Albumin Random Vancomycin Cryoglobulin % Cryoglobulin Qualit Hep Bs Antibody Hep B Core Total Ab Blood Type O Positive Antibody Screen Negative Crossmatch See Detail 01/20/25 01/21/25 01/21/25 23:35 01:08 03:44 WBC RBC Hgb Hct MCV MCH MCHC RDW Plt Count MPV Immature Gran % (Auto) Neut % (Auto) Lymph % (Auto) [place] % (Auto) Eos % (Auto) Baso % (Auto) Lymph # (Auto) [place] # (Auto) Eos # (Auto) Baso # (Auto) Abs Immat Gran (auto) Absolute Neuts (auto) Absolute Nucleated RBC Nucleated RBC % % Immature Plt Fraction Puncture Site ABG pH ABG pCO2 ABG pO2 ABG PO2/FiO2 Ratio ABG HCO3 ABG O2 Saturation ABG O2 Content ABG Base Excess A-a Gradient Oxyhemoglobin Carboxyhemoglobin Methemoglobin Reduced Hemoglobin Total Hemoglobin O2 Delivery Device O2 Liters/Min Minute Volume Vent Rate Vent Mode FiO2 Tidal Volume PEEP Peak Inspir Pressure Pressure Support Sodium 136 L Potassium 3.7 Chloride 103 Carbon Dioxide 24 Anion Gap 9 BUN 88 H Creatinine 2.74 H Estim Creat Clear Calc 13 Estimated GFR 18 L Glucose 82 POC Capillary Glucose 82 Calcium 8.3 L Magnesium 1.8 Total Bilirubin AST ALT Alkaline Phosphatase Total Creatine Kinase Total Protein Albumin Random Vancomycin < 5.0 L Cryoglobulin % Cryoglobulin Qualit Hep Bs Antibody Hep B Core Total Ab Blood Type Antibody Screen Crossmatch 01/21/25 01/21/25 01/21/25 05:31 06:36 12:30 WBC 8.9 9.0 RBC 2.24 L 3.14 L Hgb 6.3 L* 9.1 L Hct 20.2 L* 28.3 L MCV 90.2 90.1 MCH 28.1 29.0 MCHC 31.2 L 32.2 RDW 16.4 H 15.9 H Plt Count 70 L 67 L MPV 10.2 9.7 Immature Gran % (Auto) 0.8 H Neut % (Auto) 84.1 H Lymph % (Auto) 7.6 L [place] % (Auto) 7.1 Eos % (Auto) 0.4 Baso % (Auto) 0.0 L Lymph # (Auto) 0.68 L [place] # (Auto) 0.6 Eos # (Auto) 0.0 Baso # (Auto) 0.0 Abs Immat Gran (auto) 0.07 H Absolute Neuts (auto) 7.5 H Absolute Nucleated RBC 0.020 H Nucleated RBC % 0.2 % Immature Plt Fraction 2.0 2.0 Puncture Site Right radial ABG pH 7.383 ABG pCO2 43.7 ABG pO2 72.2 L ABG PO2/FiO2 Ratio 1.20 ABG HCO3 25.4 ABG O2 Saturation 94.3 L ABG O2 Content 9.0 L ABG Base Excess 0.3 A-a Gradient 307.5 Oxyhemoglobin 92.5 Carboxyhemoglobin 1.1 Methemoglobin 0.7 Reduced Hemoglobin 5.7 H Total Hemoglobin 6.8 L* O2 Delivery Device Ventilator O2 Liters/Min Not Reportable Minute Volume Not Reportable Vent Rate 14 Vent Mode Cmv FiO2 60 Tidal Volume 320 PEEP 10 Peak Inspir Pressure Not Reportable Pressure Support Not Reportable Sodium 137 Potassium 3.4 Chloride 104 Carbon Dioxide 24 Anion Gap 9 BUN 86 H Creatinine 2.64 H Estim Creat Clear Calc 13 Estimated GFR 18 L Glucose 85 POC Capillary Glucose Calcium 8.1 L Magnesium Total Bilirubin 2.3 H AST 27 ALT 41 H Alkaline Phosphatase 54 Total Creatine Kinase < 20 L Total Protein 4.8 L Albumin 2.9 L Random Vancomycin Cryoglobulin % Cancelled Cryoglobulin Qualit Cancelled Hep Bs Antibody Negative Hep B Core Total Ab Cancelled Blood Type Antibody Screen Crossmatch 01/21/25 14:00 WBC RBC Hgb Hct MCV MCH MCHC RDW Plt Count MPV Immature Gran % (Auto) Neut % (Auto) Lymph % (Auto) [place] % (Auto) Eos % (Auto) Baso % (Auto) Lymph # (Auto) [place] # (Auto) Eos # (Auto) Baso # (Auto) Abs Immat Gran (auto) Absolute Neuts (auto) Absolute Nucleated RBC Nucleated RBC % % Immature Plt Fraction Puncture Site ABG pH ABG pCO2 ABG pO2 ABG PO2/FiO2 Ratio ABG HCO3 ABG O2 Saturation ABG O2 Content ABG Base Excess A-a Gradient Oxyhemoglobin Carboxyhemoglobin Methemoglobin Reduced Hemoglobin Total Hemoglobin O2 Delivery Device O2 Liters/Min Minute Volume Vent Rate Vent Mode FiO2 Tidal Volume PEEP Peak Inspir Pressure Pressure Support Sodium Potassium Chloride Carbon Dioxide Anion Gap BUN Creatinine Estim Creat Clear Calc Estimated GFR Glucose POC Capillary Glucose 88 Calcium Magnesium Total Bilirubin AST ALT Alkaline Phosphatase Total Creatine Kinase Total Protein Albumin Random Vancomycin Cryoglobulin % Cryoglobulin Qualit Hep Bs Antibody Hep B Core Total Ab Blood Type Antibody Screen Crossmatch
[2025-01-21 18:56] LABS: Hematocrit 29.4 % (37.0-47.0); Hemoglobin 9.5 g/dL (12.0-15.0); Immature Platelet Fraction Pct 2.4 % (0.9-11.2); Mean Corpuscular HGB Conc 32.3 g/dl (32-36); Mean Corpuscular Hemoglobin 29.2 pg (26-34); Mean Corpuscular Volume 90.5 fl (80-100); Platelet Count Result 61 k/mm3 (150-375); Red Blood Count 3.25 M/mm3 (4.2-5.4); White Blood Count 8.1 K/mm3 (4.5-10.0)
[2025-01-21] MEDS: FUROSEMIDE INJ 40 MG/4 ML VIAL 80 MG IV PUSH (21:49)
[2025-01-22] VITALS (19 sets, daily range): BP systolic 121–150; BP diastolic 80–102; PULSE 51–80; RESP 13–17; TEMP 36–37.3; O2SAT 91–100
[2025-01-22] MEDS: MIDAZOLAM 100MG/NS 100ML(*CRX) 100 MG/100 ML BAG IV CONT (02:00)
[2025-01-22] MEDS: FENTANYL 2,500MCG/NS250ML(*CRX 2,500 MCG/250 ML BAG IV CONT (04:00)
[2025-01-22 05:26] LABS: Hematocrit 31.7 % (37.0-47.0); Hemoglobin 10.1 g/dL (12.0-15.0); Immature Granulocyte Percent A 1.1 % (0-0.5); Immature Platelet Fraction Pct 2.2 % (0.9-11.2); Lymphocytes Absolute Auto 1.16 K/mm3 (0.9-3.2); Mean Corpuscular HGB Conc 31.9 g/dl (32-36); Mean Corpuscular Hemoglobin 29.1 pg (26-34); Mean Corpuscular Volume 91.4 fl (80-100); Nucleated Red Blood Cells Absolute Auto 0.030 K/mm3 (0.0-0.012); Nucleated Red Blood Cells Perc 0.3 % (0.0-0.2); Red Blood Count 3.47 M/mm3 (4.2-5.4); White Blood Count 10.0 K/mm3 (4.5-10.0)
[2025-01-22 05:40] LABS: Alveolar/Arterial O2 Gradient 82.0 mmHg; Carboxyhemoglobin 0.6 % THb (0-2.0); Fractional Inspired Oxygen 30 %; HCO3 ABG 24.3 mEq/l (22.0-26.0); Methemoglobin ABG 0.1 %THb (0-1.5); Oxygen Content ABG 14.9 %vol (16.0-22.0); Oxygen Saturation ABG 94.8 % (95.0-100.0); PCO2 ABG 45.9 mmHg (35.0-45.0); PO2 ABG 78.0 mmHg (80.0-100.0); PO2 FiO2 Ratio Arterial Blood 2.60 %; Reduced Hemoglobin 4.9 %THb (0-5.0)
[2025-01-22 05:46] LABS: Modified Allen's Test Pass; Site Drawn RIGHT RADIAL
[2025-01-22 05:47] LABS: Arterial Blood Gas Tidal Volume 320 ml; Arterial Blood Gas Ventilator rate 14 /MIN
[2025-01-22 05:49] LABS: Alanine Aminotransferase 37 U/L (6-35); Albumin Level 3.3 g/dL (3.5-5.1); Alkaline Phosphatase 62 U/L (38-126); Anion Gap 10 mmol/L (4-12); Aspartate Amino Transferase 25 U/L (14-36); Bilirubin,Total 1.9 mg/dL (0.2-1.3); Blood Urea Nitrogen 82 mg/dL (7-17); Calcium 8.1 mg/dL (8.4-10.2); Carbon Dioxide 27 mmol/L (22-30); Chloride 106 mmol/L (98-107); Estimated CRCL calculation 12 ml/min; Estimated Glomerular Filt Rate 17; Glucose 96 mg/dL (65-110); Potassium 3.8 mmol/L (3.4-5.0); Sodium 143 mmol/L (137-145); Total Protein 5.2 g/dL (6.3-8.2)
[2025-01-22 05:52] LABS: Platelet Count Result 61 k/mm3 (150-375)
[2025-01-22 06:07] LABS: Hep B Core Ab, Total Negative (Negative)
[2025-01-22] MEDS: CENTRAL LINE FLUSH 10 ML IV PUSH ×3 (06:43→20:58)
[2025-01-22] MEDS: PIPERACILLIN/TAZOBACTAM SOD 2.25 GM in SODIUM CHLORIDE 0.9% IV 50 ML 100 ML IVPB ×2 (08:11→15:28)
[2025-01-22] MEDS: PANTOPRAZOLE SODIUM IV 40 MG VIAL IV PUSH ×2 (08:12→20:58)
[2025-01-22] MEDS: FOLIC ACID 1 MG/0.2 ML INJ IV PUSH (08:12)
[2025-01-22] MEDS: MUPIROCIN 2% OINT 22 GM TUBE 1 APPLIC EACH NARE ×2 (08:12→20:58)
[2025-01-22] MEDS: THIAMINE HCL 200 MG/2 ML VIAL 100 MG IV PUSH (08:12)
[2025-01-22] MEDS: FUROSEMIDE INJ 100 MG/10 ML VIAL 80 MG IV PUSH (08:24)
[2025-01-22] MEDS: EPOETIN ALFA-EPBX 20,000 UNITS/ML VIAL 20000 UNITS SUB-Q (08:25)
--- NOTE | 2025-01-22 08:40 | P.PNINT_ITS ---
Progress Note: A&P Assessment and Plan (1) Acute upper GI bleeding: Code(s): K92.2 - Gastrointestinal hemorrhage, unspecified Status: Acute Assessment and Plan: Acute upper GI bleed 01/20 EGD showed reflux esophagitis and hiatal hernia Status post transfusion of multiple units of PRBC Coagulopathy cryo FFP Hemoglobin appears to be now stable I will continue monitoring hemoglobin and transfuse additional PRBC if needed continue IV PPI. Octreotide was discontinued GI following (2) Transaminitis: Code(s): R74.01 - Elevation of levels of liver transaminase levels Status: Acute Assessment and Plan: AST and ALT mildly elevated likely consistent with alcoholic liver disease. Hepatitis C antibody screen is positive. RNA quantitative is pending (3) Alcoholic cirrhosis of liver with ascites: Code(s): K70.31 - Alcoholic cirrhosis of liver with ascites Status: Acute Assessment and Plan: Patient has cirrhosis from alcohol liver disease with CT scan showing ascites (4) Acute kidney injury superimposed on stage 4 chronic kidney disease: Code(s): N17.9 - Acute kidney failure, unspecified; N18.4 - Chronic kidney disease, stage 4 (severe) Status: Acute Assessment and Plan: Baseline creatinine in mid 2 Patient was given IV fluids but now off due to concern of volume overload and patient has also received significant amount of blood products. Creatinine improved to 2.83 Potassium improved after replacement Monitor urine output electrolytes and creatinine CT scans not show any obstruction or stone Renal ultrasound showed mild bilateral hydronephrosis without any stones Nephrology consulted and following. Patient may need renal replacement therapy if renal function deteriorates Continue diuretics for volume overload (5) Acute hypoxic respiratory failure: Code(s): J96.01 - Acute respiratory failure with hypoxia Status: Acute Assessment and Plan: Acute respiratory failure secondary to aspiration pneumonia pleural effusion upper GI bleed with underlying COPD Ventilator settings reviewed patient is on CMV Increase rate to 16, decrease PEEP to 8, FiO2 is at 30-40% Chest x-ray reviewed and patient will need additional diuresis and weaning down of PEEP of before weaning trial Imaging reviewed suggest mild pulmonary edema or volume overload. Continue diuretics Continue ND bronchodilator (6) Coagulopathy: Code(s): D68.9 - Coagulation defect, unspecified Status: Acute Assessment and Plan: Coagulopathy secondary to cirrhosis and sepsis Patient received cryo and platelets. She is also received 2 units of FFP (7) Sepsis: Code(s): A41.9 - Sepsis, unspecified organism Status: Acute Assessment and Plan: Sepsis likely secondary to pneumonia which could be aspiration Blood cultures and showing GPC on GS On IV Zosyn. Will add Vanc for now UA and micro also suggestive UTI. Urine cultures pending (8) Anemia: Code(s): D64.9 - Anemia, unspecified Status: Acute Assessment and Plan: Likely multifactorial anemia from iron deficiency and anemia of chronic kidney disease along with acute blood loss Patient received a dose of iron And she has received for units of PRBC. Hemoglobin appears to have stabilized Monitor and transfuse additional if needed Management of GI bleeding as above CNeupogen per Nephrology (9) Thrombocytopenia: Code(s): D69.6 - Thrombocytopenia, unspecified Status: Acute Assessment and Plan: Thrombocytopenia likely combination of sepsis and cirrhosis. 01/20 Platelet transfusion Will repeat CBC later this afternoon hold any anticoagulation (10) Alcohol abuse: Code(s): F10.10 - Alcohol abuse, uncomplicated Status: Acute Assessment and Plan: History of alcohol abuse. At this time patient is sedated with Versed and fentanyl. Continue thiamine and folic acid (11) Severe protein-calorie malnutrition: Code(s): E43 - Unspecified severe protein-calorie malnutrition Status: Acute Assessment and Plan: Appears well nourished and cachectic. Patient was NPO due to GI bleed. Now on tube feeds. Will advance rate (12) Acetabular fracture: Qualifiers: Encounter type: initial encounter Fracture alignment: nondisplaced Fracture type: closed Laterality: right Sublocation of acetabulum: unspecified portion of acetabulum Qualified Code(s): S32.401A - Unspecified fracture of right acetabulum, initial encounter for closed fracture Code(s): S32.409A - Unspecified fracture of unspecified acetabulum, initial encounter for closed fracture Status: Acute Assessment and Plan: Orthopedics consulted. Obtain records from [facility], [place] (13) Distal radial fracture: Qualifiers: Encounter type: subsequent encounter Fracture healing: with nonunion Fracture morphology: unspecified fracture morphology Fracture type: closed Laterality: left Qualified Code(s): S52.502K - Unspecified fracture of the lower end of left radius, subsequent encounter for closed fracture with nonunion Code(s): S52.509A - Unspecified fracture of the lower end of unspecified radius, initial encounter for closed fracture Status: Acute Assessment and Plan: Currently in splint. Orthopedics consulted Plan DVT prophylaxis -SCDs Stress ulcer prophylaxis -Protonix IV Nutrition -continue tube feeds Code Status - Full Code Total Critical Care Time - 30 minutes Due to a high probability of clinically significant, life threatening deterioration, the patient required my highest level of preparedness to intervene emergently and I personally spent this critical care time directly and personally managing the patient. This critical care time included obtaining a history; examining the patient; pulse oximetry; ordering and review of studies; arranging urgent treatment with development of a management plan; evaluation of patient's response to treatment; frequent reassessment; and discussions with other providers. It was exclusive of separately billable procedures and treating other patients and teaching time. Please see Assessment and Plan section and the rest of the note for further information on patient assessment and treatment Subjective Date/time seen: 01/22/25 Overnight events reviewed. Afebrile. Tolerating tube feed at 20 mL/hour Continues to be on mechanical ventilation 30% FiO2 and 10 of PEEP Good urine output in response to Lasix Continues to be sedated with Versed and Cathy Other Vitals acceptable Review of Systems Review of Systems: ROS unobtainable: Yes unobtainable due to endotracheal tube, unobtainable due to medical condition and unobtainable due to mental status Exam Narrative: General: Pt is cachectic old female who looks much older than her age. She is Sedated, intubated and on mechanical ventilation Lungs/Chest: Trachea central Coarse BS B/L, No crackles or wheezing. Overall decreased air movement throughout lungs with barrel chest Cardiac: RRR. Normal S1 S2. No murmurs Circulation: Pedal pulses are intact and symmetrical. Abdomen: Decreased bowel sounds.. Soft. NT. ND. Extremities: No clubbing, cyanosis or edema. Feet are cold : Mclean in place Neurologic: Unable to assess due to sedation. She tries to open her eyes on painful stimuli PERRL Skin: Petechia on the chest Objective Data Vital Signs Vital Signs: Vital Signs - 24 hr 01/21/25 09:06 01/21/25 10:00 01/21/25 10:00 Temperature 36.4 C Pulse Rate 64 64 64 Respiratory Rate 16 14 14 Blood Pressure 131/84 Pulse Oximetry 100 Oxygen Delivery Fraction of Inspired Oxygen 01/21/25 10:00 01/21/25 10:00 01/21/25 10:01 Temperature 36.5 C 36.4 C Pulse Rate 64 65 65 Respiratory Rate 14 14 Blood Pressure 128/83 128/83 Pulse Oximetry 100 100 Oxygen Delivery Fraction of Inspired Oxygen 01/21/25 10:19 01/21/25 11:03 01/21/25 11:17 Temperature 36.4 C 36.4 C 36.5 C Pulse Rate 65 66 65 Respiratory Rate 14 14 14 Blood Pressure 130/86 131/87 128/85 Pulse Oximetry 99 100 100 Oxygen Delivery Fraction of Inspired Oxygen 01/21/25 11:24 01/21/25 11:33 01/21/25 12:00 Temperature 36.4 C Pulse Rate 65 65 67 Respiratory Rate 14 14 Blood Pressure 131/87 Pulse Oximetry 100 100 Oxygen Delivery Mechanical Ventilation Fraction of Inspired Oxygen 60 01/21/25 12:00 01/21/25 12:00 01/21/25 12:00 Temperature 36.4 C L Pulse Rate 67 67 67 Respiratory Rate 14 14 14 Blood Pressure 134/92 H Pulse Oximetry 100 100 Oxygen Delivery Mechanical Ventilation Fraction of Inspired Oxygen 40 01/21/25 12:00 01/21/25 12:10 01/21/25 13:54 Temperature 36.4 C L Pulse Rate 68 65 Respiratory Rate 13 Blood Pressure 132/93 H Pulse Oximetry 100 Oxygen Delivery Fraction of Inspired Oxygen 60 01/21/25 14:00 01/21/25 14:00 01/21/25 14:17 Temperature 36.4 C Pulse Rate 62 62 63 Respiratory Rate 14 Blood Pressure 123/83 Pulse Oximetry 100 100 Oxygen Delivery Mechanical Ventilation Fraction of Inspired Oxygen 60 01/21/25 16:00 01/21/25 16:00 01/21/25 16:00 Temperature 36.3 C L Pulse Rate 61 61 Respiratory Rate 14 Blood Pressure 124/85 Pulse Oximetry 100 Oxygen Delivery Fraction of Inspired Oxygen 60 01/21/25 16:00 01/21/25 16:05 01/21/25 18:00 Temperature Pulse Rate 72 62 64 Respiratory Rate 14 Blood Pressure Pulse Oximetry 100 100 Oxygen Delivery Mechanical Ventilation Mechanical Ventilation Fraction of Inspired Oxygen 40 60 01/21/25 18:00 01/21/25 20:00 01/21/25 20:00 Temperature 36.3 C L 36.3 C L Pulse Rate 64 60 Respiratory Rate 14 14 Blood Pressure 125/80 126/86 Pulse Oximetry 100 100 Oxygen Delivery Fraction of Inspired Oxygen 60 01/21/25 20:00 01/21/25 20:00 01/21/25 20:00 Temperature Pulse Rate 60 60 Respiratory Rate 14 14 Blood Pressure Pulse Oximetry 100 Oxygen Delivery Mechanical Ventilation Fraction of Inspired Oxygen 60 01/21/25 20:00 01/21/25 20:30 01/21/25 22:00 Temperature Pulse Rate 60 62 68 Respiratory Rate 13 Blood Pressure Pulse Oximetry 100 Oxygen Delivery Mechanical Ventilation Fraction of Inspired Oxygen 60 01/21/25 22:00 01/21/25 22:00 01/21/25 22:00 Temperature 36.3 C L Pulse Rate 68 68 68 Respiratory Rate 13 13 Blood Pressure 135/91 H Pulse Oximetry 100 Oxygen Delivery Fraction of Inspired Oxygen 01/21/25 23:10 01/22/25 00:00 01/22/25 00:00 Temperature Pulse Rate 62 61 Respiratory Rate 14 Blood Pressure Pulse Oximetry 100 Oxygen Delivery Mechanical Ventilation Fraction of Inspired Oxygen 50 40 01/22/25 00:00 01/22/25 00:00 01/22/25 00:00 Temperature 36.4 C Pulse Rate 61 61 Respiratory Rate 14 14 Blood Pressure 127/88 Pulse Oximetry 100 99 Oxygen Delivery Mechanical Ventilation Fraction of Inspired Oxygen 40 01/22/25 00:00 01/22/25 02:00 01/22/25 02:00 Temperature 36.8 C Pulse Rate 61 69 69 Respiratory Rate 14 Blood Pressure 128/87 Pulse Oximetry 100 Oxygen Delivery Fraction of Inspired Oxygen 01/22/25 02:00 01/22/25 02:00 01/22/25 02:00 Temperature Pulse Rate 69 70 70 Respiratory Rate 14 14 14 Blood Pressure Pulse Oximetry Oxygen Delivery Fraction of Inspired Oxygen 01/22/25 02:18 01/22/25 04:00 01/22/25 04:00 Temperature Pulse Rate 72 Respiratory Rate Blood Pressure Pulse Oximetry 99 96 Oxygen Delivery Mechanical Ventilation Mechanical Ventilation Fraction of Inspired Oxygen 40 30 30 01/22/25 04:00 01/22/25 04:00 01/22/25 04:00 Temperature 37.3 C Pulse Rate 78 80 78 Respiratory Rate 14 14 Blood Pressure 149/102 H Pulse Oximetry 96 Oxygen Delivery Fraction of Inspired Oxygen 01/22/25 04:00 01/22/25 05:45 01/22/25 06:00 Temperature Pulse Rate 80 76 61 Respiratory Rate 14 Blood Pressure Pulse Oximetry 96 Oxygen Delivery Mechanical Ventilation Fraction of Inspired Oxygen 30 01/22/25 06:00 01/22/25 06:00 01/22/25 06:00 Temperature 36.9 C Pulse Rate 80 80 80 Respiratory Rate 14 14 14 Blood Pressure 150/98 H Pulse Oximetry 100 Oxygen Delivery Fraction of Inspired Oxygen Intake/Output Intake/Output: Intake & Output 01/19/25 01/20/25 01/21/25 01/22/25 23:59 23:59 23:59 23:59 Intake Total 4025.8 2602 365 Output Total 1330 1300 1100 Balance 2695.8 1302 -735 Meds/Results Medications: Active Medications Generic Name Dose Route Start Last Admin Trade Name Freq PRN Reason Stop Dose Admin Dextrose 12.5 gm 01/20/25 08:23 Dextrose 50% 25 Gm/50 Ml Syringe IV PUSH PRN PRN Hypoglycemia Protocol Epoetin Emil-epbx 20,000 units 01/22/25 09:00 01/22/25 08:25 Epoetin Emil-Epbx 20,000 Units/Ml Vial SUB-Q 01/22/25 09:01 20,000 units ONCE ONE Administration Epoetin Emil-epbx 10,000 units 01/23/25 09:00 Epoetin Emil-Epbx 10,000 Units/Ml Vial SUB-Q TUTHSA@09 MEENA Folic Acid 1 mg 01/20/25 09:00 01/22/25 08:12 Folic Acid 1 Mg/0.2 Ml Inj IV PUSH 1 mg QAM MEENA Administration Glucagon 1 mg 01/20/25 08:23 Glucagon For Inj 1 Mg Vial IM PRN PRN Hypoglycemia Protocol Glucose 15 gm 01/20/25 08:23 Glucose Oral Gel 15 Gm Of Glucse In 37.5 Gm Tube PO PRN PRN Hypoglycemia Protocol Dextrose 1,000 mls @ 100 mls/hr 01/20/25 08:23 Dextrose 5% 1,000 Ml IVPB PRN PRN Hypoglycemia Protocol Fentanyl Citrate 2,500 mcg in 250 mls @ 5 mls/hr 01/21/25 00:05 01/22/25 06:00 Fentanyl 2,500 Mcg/Ns 250 Ml IV CONT 50 mcg/hr .Q50H MEENA 5 mls/hr Protocol Titration 50 MCG/HR Midazolam HCl 100 mg in 100 mls @ 4 mls/hr 01/21/25 00:05 01/22/25 06:00 Versed 100 Mg/Ns 100 Ml IV CONT 4 mg/hr .Q25H MEENA 4 mls/hr Protocol Titration 4 MG/HR Piperacillin Sod/Tazobactam 50 mls @ 100 mls/hr 01/21/25 08:00 01/22/25 08:11 Sod 2.25 gm/ Sodium Chloride IVPB 100 mls/hr Q8H MEENA Administration Insulin Aspart 3 - 6 units 01/20/25 12:00 01/22/25 06:43 Insulin Aspart (*Bkc) 100 Units/Ml SUB-Q Not Given Q6HR [facility] Protocol Mupirocin 1 applic 01/20/25 09:00 01/22/25 08:12 Mupirocin 2% Oint 22 Gm Tube EACH NARE 01/24/25 21:01 1 applic Q12HR MEENA Administration Pantoprazole Sodium 40 mg 01/21/25 09:00 01/22/25 08:12 Pantoprazole Sodium Iv 40 Mg Vial IV PUSH 40 mg Q12HR MEENA Administration Sodium Chloride 10 ml 01/20/25 06:00 01/22/25 06:43 Central Line Flush IV PUSH 10 ml Q8HR MEENA Administration Sodium Chloride 20 ml 01/20/25 01:15 Central Line Flush IV PUSH PRN PRN after blood draws Thiamine HCl 100 mg 01/20/25 09:00 01/22/25 08:12 Thiamine Hcl 200 Mg/2 Ml Vial IV PUSH 100 mg QAM MEENA Administration Radiology Results: ITS Impressions Abdomen X-Ray 01/20/25 05:42 Impression: NG tube in satisfactory position. Small left pleural effusion. Chest/Abdomen/Pelvis CT 01/20/25 05:48 Impression: Moderate to large left pleural effusion with extensive left lower lobe atelectasis. Small right pleural effusion. 9 mm spiculated nodule in the right lower lobe, as detailed above, indeterminate. CT scan in 3 months advised. Consider PET/CT or attempted tissue sampling as indicated. Moderate emphysema. No definite evidence for GI bleed, but evaluation is limited without IV contrast and with oral contrast on board. Consider follow-up CT angiogram of the bowel to further evaluate for GI bleed, as indicated. Moderate abdominopelvic ascites. T12 compression fracture, somewhat age indeterminate, but new since 06/20/2024. Fractures of the right anterior acetabulum at the junction of the right superior pubic ramus and of the right inferior pubic ramus, acute to subacute in nature. Head CT 01/20/25 06:13 Impression: No intracranial hemorrhage, mass, or acute infarct. Atrophy and chronic white matter changes, as above. Wrist X-Ray 01/20/25 06:13 Impression: Probable chronic fracture deformities of the distal radius and ulnar styloid process, as detailed above. No definite acute fracture. Renal Ultrasound 01/21/25 08:42 IMPRESSION: 1. Medical renal disease. 2. Mild bilateral hydronephrosis. No nephrolithiasis. Chest X-Ray 01/22/25 05:49 Impression: Small left pleural effusion with left lower lobe atelectasis or pneumonia. Worsening central airspace haziness in the lungs, compatible with mild central pulmonary edema. Support tubes, as above. Labs Labs: Laboratory Results - last 24 hr 01/20/25 01/21/25 01/21/25 02:00 06:36 12:30 WBC 9.0 RBC 3.14 L Hgb 9.1 L Hct 28.3 L MCV 90.1 MCH 29.0 MCHC 32.2 RDW 15.9 H Plt Count 67 L MPV 9.7 Immature Gran % (Auto) Neut % (Auto) Lymph % (Auto) Dougherty % (Auto) Eos % (Auto) Baso % (Auto) Lymph # (Auto) Dougherty # (Auto) Eos # (Auto) Baso # (Auto) Abs Immat Gran (auto) Absolute Neuts (auto) Absolute Nucleated RBC Nucleated RBC % % Immature Plt Fraction 2.0 Puncture Site ABG pH ABG pCO2 ABG pO2 ABG PO2/FiO2 Ratio ABG HCO3 ABG O2 Saturation ABG O2 Content ABG Base Excess A-a Gradient Oxyhemoglobin Carboxyhemoglobin Methemoglobin Reduced Hemoglobin Total Hemoglobin O2 Delivery Device O2 Liters/Min Minute Volume Vent Rate Vent Mode FiO2 Tidal Volume PEEP Peak Inspir Pressure Pressure Support Sodium Potassium Chloride Carbon Dioxide Anion Gap BUN Creatinine Estim Creat Clear Calc Estimated GFR Glucose POC Capillary Glucose Calcium Total Bilirubin AST ALT Alkaline Phosphatase Total Protein Albumin Hep Bs Antibody Negative Hep B Core Total Ab Negative Blood Type O Positive Antibody Screen Negative Crossmatch See Detail 01/21/25 01/21/25 01/21/25 14:00 17:16 18:50 WBC 8.1 RBC 3.25 L Hgb 9.5 L Hct 29.4 L MCV 90.5 MCH 29.2 MCHC 32.3 RDW 16.0 H Plt Count 61 L MPV 9.8 Immature Gran % (Auto) Neut % (Auto) Lymph % (Auto) Dougherty % (Auto) Eos % (Auto) Baso % (Auto) Lymph # (Auto) Dougherty # (Auto) Eos # (Auto) Baso # (Auto) Abs Immat Gran (auto) Absolute Neuts (auto) Absolute Nucleated RBC Nucleated RBC % % Immature Plt Fraction 2.4 Puncture Site ABG pH ABG pCO2 ABG pO2 ABG PO2/FiO2 Ratio ABG HCO3 ABG O2 Saturation ABG O2 Content ABG Base Excess A-a Gradient Oxyhemoglobin Carboxyhemoglobin Methemoglobin Reduced Hemoglobin Total Hemoglobin O2 Delivery Device O2 Liters/Min Minute Volume Vent Rate Vent Mode FiO2 Tidal Volume PEEP Peak Inspir Pressure Pressure Support Sodium Potassium Chloride Carbon Dioxide Anion Gap BUN Creatinine Estim Creat Clear Calc Estimated GFR Glucose POC Capillary Glucose 88 91 Calcium Total Bilirubin AST ALT Alkaline Phosphatase Total Protein Albumin Hep Bs Antibody Hep B Core Total Ab Blood Type Antibody Screen Crossmatch 01/22/25 01/22/25 01/22/25 00:49 04:31 05:06 WBC 10.0 RBC 3.47 L Hgb 10.1 L Hct 31.7 L MCV 91.4 MCH 29.1 MCHC 31.9 L RDW 16.5 H Plt Count 61 L MPV 9.9 Immature Gran % (Auto) 1.1 H Neut % (Auto) 76.5 H Lymph % (Auto) 11.6 L Dougherty % (Auto) 8.9 H Eos % (Auto) 1.8 Baso % (Auto) 0.1 L Lymph # (Auto) 1.16 Dougherty # (Auto) 0.9 H Eos # (Auto) 0.2 Baso # (Auto) 0.0 Abs Immat Gran (auto) 0.11 H Absolute Neuts (auto) 7.7 H Absolute Nucleated RBC 0.030 H Nucleated RBC % 0.3 H % Immature Plt Fraction 2.2 Puncture Site Right radial ABG pH 7.341 L ABG pCO2 45.9 H ABG pO2 78.0 L ABG PO2/FiO2 Ratio 2.60 ABG HCO3 24.3 ABG O2 Saturation 94.8 L ABG O2 Content 14.9 L ABG Base Excess -1.6 A-a Gradient 82.0 Oxyhemoglobin 94.4 Carboxyhemoglobin 0.6 Methemoglobin 0.1 Reduced Hemoglobin 4.9 Total Hemoglobin 11.2 L O2 Delivery Device Ventilator O2 Liters/Min Not Reportable Minute Volume Not Reportable Vent Rate 14 Vent Mode Cmv FiO2 30 Tidal Volume 320 PEEP 10 Peak Inspir Pressure Not Reportable Pressure Support Not Reportable Sodium 143 Potassium 3.8 Chloride 106 Carbon Dioxide 27 Anion Gap 10 BUN 82 H Creatinine 2.83 H Estim Creat Clear Calc 12 Estimated GFR 17 L Glucose 96 POC Capillary Glucose 101 Calcium 8.1 L Total Bilirubin 1.9 H AST 25 ALT 37 H Alkaline Phosphatase 62 Total Protein 5.2 L Albumin 3.3 L Hep Bs Antibody Hep B Core Total Ab Blood Type Antibody Screen Crossmatch Quality VTE Prophylaxis VTE prophylaxis: mechanical ordered
--- NOTE | 2025-01-22 11:00 | PCNFU ---
Nutrition Follow-Up Complete: Severe Protein Calorie Malnutrition as related to inadequate protein-energy intake with increased protein-energy needs in setting of chronic disease as evidenced by minimal oral intake for >1-2 months; severe subcutaneous fat loss (orbital fat pads) and severe muscle wasting (temporalis). Meet estimated nutritional needs -Progressing with tube feedings, not at goal yet Goal: Pt current nutrition is Nepro @ 20 ml/h. Nutrition recommendation: Advance Nepro to goal rate 35 ml/h to provide 1386 kcal, 62 g protein, 560 ml free water. Flush 30 ml q 4 h Last recorded weight is 40.9 kg. Bowel Motility: No BMs are charted Labs Reviewed: Hgb 10.1, Hct 31.7, Alb 3.3, BUN 82, Cre 2.83 Meds Noted: Fentanyl, versed, lasix. No pressors Skin: WNL Additional Notes: Discussed with . Wants to keep Nepro @ 20 ml/h for today. Recommend advancing to goal of 35 ml/h to meet EER @ 33 kcal/g, 1.5 g protein/kg. Currently not adequate for needs. Will monitor weight, labs, skin, diet orders, meds every Saturday and Saturday.
--- NOTE | 2025-01-22 11:50 | P.PNNP_ITS ---
Progress Note: A&P Assessment and Plan (1) Acute kidney injury: Code(s): N17.9 - Acute kidney failure, unspecified Status: Acute Assessment and Plan: * as noted on admission (creatinine of 3.43mg/dl) * some improvement note by trend of labs * likely due to multiple issues: * prerenal factors (poor nutrition) * anemia/GI bleed * infection/sepsis * respiratory failure * hypoxia * liver disease/cirrhosis * progression of underlying CKD * other(?) * evaluation to date noted: * renal ultrasound with CKD and mild bilateral hydronephrosis - mcqueen cathter placed * urine electrolytes prerenal - suspect due to a combination of poor oral intake AND liver disease/physiology (decreased effective circulating volume) * urine eosinophils negative * CPK low * ~ 2 grams of proteinuria * maintain hemodynamics and H/H as tolerated * noted reasonable urine output with IV diuretics * follow trend of repeat labs and UOP (2) Stage 4 chronic kidney disease: Code(s): N18.4 - Chronic kidney disease, stage 4 (severe) Status: Chronic Assessment and Plan: * not entirely clear what baseline creatinine really is.... * was noted to be ~ 1.4 - 1.6mg/dl in June 2024 * however, since December 2024, has been running ~ 2.4 - 2.6mg/dl (from record review from [facility]) * most recent labs done on 01/15/25 -- creatinine up to 2.79mg/dl (ER visit at [facility] prior to leaving [facility]) (3) Acute upper GI bleeding: Code(s): K92.2 - Gastrointestinal hemorrhage, unspecified Status: Acute Assessment and Plan: * suspected based on admission events/presentation * GI following * s/p EGD (on 01/20): * noted erosive esophagitis but no varices or bleeding lesions noted * PRBC transfusion per protocol * corrected coagulopathy * IV PPI * follow trend on H/H (4) Acute hypoxic respiratory failure: Code(s): J96.01 - Acute respiratory failure with hypoxia Status: Acute Assessment and Plan: * multifactorial: * inability to protect airway * aspiration pneumonia * pleural effusions * suspected upper GI bleed * complicated by underlying COPD * imaging noted - mild pulmonary edema * IV diuretics PRN * ventilator weaning as tolerated (5) Sepsis: Code(s): A41.9 - Sepsis, unspecified organism Status: Acute Assessment and Plan: * possibly from pneumonia (aspiration) versus UTI * follow culture data * on antibiotics * stable hemodynamics noted (6) Anemia: Code(s): D64.9 - Anemia, unspecified Status: Acute Assessment and Plan: * due to several issues: * due to underlying CKD * iron deficiency * #3 - GI following * liver disease * coagulopathy * other * PRBC transfusion as needed * Epogen while hospitalized * follow trend of H/H (7) Coagulopathy: Code(s): D68.9 - Coagulation defect, unspecified Status: Acute Assessment and Plan: * porbably secondary to liver cirrhosis * complicated by thrombocytopenia also related to liver disease * s/p cryoprecipitate, platelets, and FFP transfusion * follow INR (8) Alcoholic cirrhosis of liver with ascites: Code(s): K70.31 - Alcoholic cirrhosis of liver with ascites Status: Acute Assessment and Plan: * as evidence by admission CT/imaging findings * presumably partly related to alcohol intake * GI following (9) Transaminitis: Code(s): R74.01 - Elevation of levels of liver transaminase levels Status: Acute Assessment and Plan: * noted by admission labs * suspect secondary to/consistent with with alcoholic liver disease. * hepatitis panel noted (10) Acetabular fracture: Qualifiers: Encounter type: initial encounter Fracture alignment: nondisplaced Fracture type: closed Laterality: right Sublocation of acetabulum: unspecified portion of acetabulum Qualified Code(s): S32.401A - Unspecified fracture of right acetabulum, initial encounter for closed fracture Code(s): S32.409A - Unspecified fracture of unspecified acetabulum, initial encounter for closed fracture Status: Acute Assessment and Plan: * as noted by admission CT imaging: * fractures of the right anterior acetabulum at the junction of the right superior pubic ramus and of the right inferior pubic ramus, acute to subacute in nature * Orthopedic Surgery consulted * not likely a surgical candidate at this time (11) Distal radial fracture: Qualifiers: Encounter type: subsequent encounter Fracture healing: with nonunion Fracture morphology: unspecified fracture morphology Fracture type: closed Laterality: left Qualified Code(s): S52.502K - Unspecified fracture of the lower end of left radius, subsequent encounter for closed fracture with nonunion Code(s): S52.509A - Unspecified fracture of the lower end of unspecified radius, initial encounter for closed fracture Status: Acute Assessment and Plan: * apparently chronic in nature by X-rays * splint in place * Orthopedic Surgery consulted (12) Alcohol abuse: Code(s): F10.10 - Alcohol abuse, uncomplicated Status: Acute Assessment and Plan: * known history * monitor for withdrawal (although currently sedated) * on IV thiamine and folate Will continue to follow. Subjective Date/time seen: 01/22/25 11:50 Interval history: Follow-up for acute kidney injury/acute renal failure on chronic kidney disease. Renal function/creatinine fluctuating but good urine output noted in response to IV diuretics; remains intubated/sedated and on mechanical ventilation; remains hemodynamically stable at this time; H/H has been holding steady as well. Exam Narrative: General: chronically ill-appearing and cachetic female intubated/sedated and on mechanical ventilation Heart: normal S1 and S2; no rub Lungs: coarse breath sounds; decreased throughout Abdomen: soft, nontender, nondistended, positive bowel sounds Extremities: no cyanosis or clubbing; no edema Skin: warm and intact Objective Data Vital Signs Vital Signs: Vital Signs Temp Pulse Resp BP Pulse Ox O2 Del Method FiO2 01/22/25 11:00 98.1 F 61 13 121/80 97 01/22/25 10:58 63 96 Mechanical Ventilation 30 01/22/25 10:00 63 16 01/22/25 10:00 61 14 01/22/25 10:00 63 01/22/25 10:00 63 16 129/82 96 01/22/25 08:00 65 16 01/22/25 08:00 65 16 01/22/25 08:00 65 01/22/25 08:00 98.0 F 68 16 136/89 98 01/22/25 08:00 30 01/22/25 08:00 16 96 Mechanical Ventilation 30 01/22/25 07:55 67 98 Mechanical Ventilation 30 01/22/25 06:00 80 14 01/22/25 06:00 80 14 01/22/25 06:00 98.5 F 80 14 150/98 H 100 01/22/25 06:00 61 01/22/25 05:45 76 96 Mechanical Ventilation 30 01/22/25 04:00 80 14 01/22/25 04:00 78 14 01/22/25 04:00 80 01/22/25 04:00 99.1 F 78 14 149/102 H 96 01/22/25 04:00 96 Mechanical Ventilation 30 01/22/25 04:00 30 01/22/25 02:18 72 99 Mechanical Ventilation 40 01/22/25 02:00 70 14 01/22/25 02:00 70 14 01/22/25 02:00 69 14 01/22/25 02:00 98.2 F 69 14 128/87 100 01/22/25 02:00 69 01/22/25 00:00 61 01/22/25 00:00 97.6 F 61 14 127/88 99 01/22/25 00:00 100 Mechanical Ventilation 40 01/22/25 00:00 61 14 01/22/25 00:00 61 14 01/22/25 00:00 40 01/21/25 23:10 62 100 Mechanical Ventilation 50 01/21/25 22:00 68 01/21/25 22:00 97.3 F L 68 13 135/91 H 100 01/21/25 22:00 68 13 01/21/25 22:00 68 13 01/21/25 20:30 62 100 Mechanical Ventilation 60 01/21/25 20:00 60 01/21/25 20:00 60 14 01/21/25 20:00 60 14 01/21/25 20:00 100 Mechanical Ventilation 60 01/21/25 20:00 97.4 F L 60 14 126/86 100 01/21/25 20:00 60 01/21/25 18:00 97.3 F L 64 14 125/80 100 01/21/25 18:00 64 Intake/Output Intake/Output: Intake & Output 01/19/25 01/20/25 01/21/25 01/22/25 23:59 23:59 23:59 23:59 Intake Total 4025.8 2602 655 Output Total 1330 1300 1100 Balance 2695.8 1302 -445 Meds/Results Medications: Active Medications Generic Name Dose Route Start Last Admin Trade Name Freq PRN Reason Stop Dose Admin Dextrose 12.5 gm 01/20/25 08:23 Dextrose 50% 25 Gm/50 Ml Syringe IV PUSH PRN PRN Hypoglycemia Protocol Epoetin Emil-epbx 10,000 units 01/23/25 09:00 Epoetin Emil-Epbx 10,000 Units/Ml Vial SUB-Q TUTHSA@09 MEENA Folic Acid 1 mg 01/20/25 09:00 01/22/25 08:12 Folic Acid 1 Mg/0.2 Ml Inj IV PUSH 1 mg QAM MEENA Administration Glucagon 1 mg 01/20/25 08:23 Glucagon For Inj 1 Mg Vial IM PRN PRN Hypoglycemia Protocol Glucose 15 gm 01/20/25 08:23 Glucose Oral Gel 15 Gm Of Glucse In 37.5 Gm Tube PO PRN PRN Hypoglycemia Protocol Dextrose 1,000 mls @ 100 mls/hr 01/20/25 08:23 Dextrose 5% 1,000 Ml IVPB PRN PRN Hypoglycemia Protocol Fentanyl Citrate 2,500 mcg in 250 mls @ 5 mls/hr 01/21/25 00:05 01/22/25 16:00 Fentanyl 2,500 Mcg/Ns 250 Ml IV CONT 50 mcg/hr .Q50H MEENA 5 mls/hr Protocol Titration 50 MCG/HR Midazolam HCl 100 mg in 100 mls @ 4 mls/hr 01/21/25 00:05 01/22/25 16:00 Versed 100 Mg/Ns 100 Ml IV CONT 4 mg/hr .Q25H MEENA 4 mls/hr Protocol Titration 4 MG/HR Piperacillin Sod/Tazobactam 50 mls @ 100 mls/hr 01/21/25 08:00 01/22/25 15:58 Sod 2.25 gm/ Sodium Chloride IVPB Infused Q8H [facility] Infusion Insulin Aspart 3 - 6 units 01/20/25 12:00 01/22/25 12:26 Insulin Aspart (*Bkc) 100 Units/Ml SUB-Q Not Given Q6HR [facility] Protocol Multi-Ingred Cream/Lotion/Oil/Oint 1 applic 01/22/25 21:00 Mineral Oil/White Petrolatum Ointment EACH EYE Q12HR [facility] Mupirocin 1 applic 01/20/25 09:00 08/22/25 08:12 Mupirocin 2% Oint 22 Gm Tube EACH NARE 01/24/25 21:01 1 applic Q12HR MEENA Administration Pantoprazole Sodium 40 mg 01/21/25 09:00 01/22/25 08:12 Pantoprazole Sodium Iv 40 Mg Vial IV PUSH 40 mg Q12HR MEENA Administration Sodium Chloride 10 ml 01/20/25 06:00 01/22/25 13:27 Central Line Flush IV PUSH 10 ml Q8HR MEENA Administration Sodium Chloride 20 ml 01/20/25 01:15 Central Line Flush IV PUSH PRN PRN after blood draws Thiamine HCl 100 mg 01/20/25 09:00 01/22/25 08:12 Thiamine Hcl 200 Mg/2 Ml Vial IV PUSH 100 mg QAM MEENA Administration Vancomycin HCl 1 each 01/22/25 11:10 Vancomycin For Acute Kidney Injury IVPB PER PROTOCOL [facility] Radiology Results: ITS Impressions Abdomen X-Ray 01/20/25 05:42 Impression: NG tube in satisfactory position. Small left pleural effusion. Chest/Abdomen/Pelvis CT 01/20/25 05:48 Impression: Moderate to large left pleural effusion with extensive left lower lobe atelectasis. Small right pleural effusion. 9 mm spiculated nodule in the right lower lobe, as detailed above, indetermi rich. CT scan in 3 months advised. Consider PET/CT or attempted tissue sampling as indicated. Moderate emphysema. No definite evidence for GI bleed, but evaluation is limited without IV contrast and with oral contrast on board. Consider follow-up CT angiogram of the bowel to further evaluate for GI bleed, as indicated. Moderate abdominopelvic ascites. T12 compression fracture, somewhat age indeterminate, but new since 06/20/2024. Fractures of the right anterior acetabulum at the junction of the right superior pubic ramus and of the right inferior pubic ramus, acute to subacute in nature. Head CT 01/20/25 06:13 Impression: No intracranial hemorrhage, mass, or acute infarct. Atrophy and chronic white matter changes, as above. Wrist X-Ray 01/20/25 06:13 Impression: Probable chronic fracture deformities of the distal radius and ulnar styloid process, as detailed above. No definite acute fracture. Renal Ultrasound 01/21/25 08:42 IMPRESSION: 1. Medical renal disease. 2. Mild bilateral hydronephrosis. No nephrolithiasis. Chest X-Ray 01/22/25 05:49 Impression: Small left pleural effusion with left lower lobe atelectasis or pneumonia. Worsening central airspace haziness in the lungs, compatible with mild central pulmonary edema. Support tubes, as above. Labs Labs: Laboratory Tests 01/22/25 05:06 WBC 10.0 Hgb 10.1 L Hct 31.7 L Plt Count 61 L Sodium 143 Potassium 3.8 Chloride 106 Carbon Dioxide 27 Anion Gap 10 BUN 82 H Creatinine 2.83 H Estim Creat Clear Calc 12 Estimated GFR 17 L Glucose 96 Calcium 8.1 L Total Bilirubin 1.9 H AST 25 ALT 37 H Alkaline Phosphatase 62 Total Protein 5.2 L Albumin 3.3 L Microbiology 01/20/25 02:49 Blood Blood Culture - Preliminary 01/20/25 08:33 Urine [place] - Final 01/20/25 02:49 Blood Blood Culture - Preliminary
[2025-01-22] MEDS: VANCOMYCIN 500 MG/NS 100 ML 500 MG/100 ML BAG 100 MG IVPB (12:26)
[2025-01-22 12:52] LABS: Hematocrit 31.1 % (37.0-47.0); Hemoglobin 9.9 g/dL (12.0-15.0); Immature Platelet Fraction Pct 1.7 % (0.9-11.2); Mean Corpuscular HGB Conc 31.8 g/dl (32-36); Mean Corpuscular Hemoglobin 28.9 pg (26-34); Mean Corpuscular Volume 90.9 fl (80-100); Platelet Count Result 55 k/mm3 (150-375); Red Blood Count 3.42 M/mm3 (4.2-5.4); White Blood Count 8.9 K/mm3 (4.5-10.0)
--- NOTE | 2025-01-22 15:59 | P.PNGI_ITS ---
Progress Note: A&P Assessment and Plan (1) Erosive esophagitis: Code(s): K22.10 - Ulcer of esophagus without bleeding Status: Acute Assessment and Plan: h/h stable after transfusion no varices or active bleeding continue with iv protonix (2) Alcoholic cirrhosis of liver with ascites: Code(s): K70.31 - Alcoholic cirrhosis of liver with ascites Status: Acute Assessment and Plan: meld score on admission 23 alcohol related, also + HCV awaiting RNA- this can be addressed as outpatient supportive care (3) Severe protein-calorie malnutrition: Code(s): E43 - Unspecified severe protein-calorie malnutrition Status: Acute Assessment and Plan: tube feeding by ogt (4) Acute kidney injury: Code(s): N17.9 - Acute kidney failure, unspecified Status: Acute Assessment and Plan: creatinine stable BP is normal she has CKD (5) Acute upper GI bleeding: Code(s): K92.2 - Gastrointestinal hemorrhage, unspecified Status: Acute Assessment and Plan: severe esophagitis (6) Thrombocytopenia: Code(s): D69.6 - Thrombocytopenia, unspecified Status: Acute Assessment and Plan: probably from liver disease (7) Acute hypoxic respiratory failure: Code(s): J96.01 - Acute respiratory failure with hypoxia Status: Acute (8) Acute on chronic anemia: Code(s): D64.9 - Anemia, unspecified Status: Acute Subjective Date/time seen: 01/22/25 15:59 Interval history: still intubated no signs of more bleeding egd showed only esophagitis,no signs of active bleeding tolerating tube feeding at 20 ml/h Review of Systems Review of Systems: All systems reviewed & are unremarkable except as noted in HPI and below Exam Narrative: General: Pt is cachectic old female who looks much older than her age. She is Sedated, intubated and on mechanical ventilation neck: supple Lungs/Chest: Trachea central Coarse BS B/L, No crackles or wheezing. Overall decreased air movement throughout lungs with barrel chest Cardiac: RRR. Normal S1 S2. No murmurs Circulation: Pedal pulses are intact and symmetrical. Abdomen: Decreased bowel sounds.. Soft. NT. ND. Extremities: No clubbing, cyanosis or edema. : Mclean in place Neurologic: Unable to assess due to sedation. She tries to open her eyes on painful stimuli PERRL Skin: Petechia on the chest Objective Data Vital Signs Vital Signs: Vital Signs - 24 hr 01/21/25 16:00 01/21/25 16:00 01/21/25 16:00 Temperature 97.4 F L Pulse Rate 61 61 Respiratory Rate 14 Blood Pressure 124/85 Pulse Oximetry 100 Oxygen Delivery Fraction of Inspired Oxygen 60 01/21/25 16:00 01/21/25 16:05 01/21/25 18:00 Temperature Pulse Rate 72 62 64 Respiratory Rate 14 Blood Pressure Pulse Oximetry 100 100 Oxygen Delivery Mechanical Ventilation Mechanical Ventilation Fraction of Inspired Oxygen 40 60 01/21/25 18:00 01/21/25 20:00 01/21/25 20:00 Temperature 97.3 F L 97.4 F L Pulse Rate 64 60 Respiratory Rate 14 14 Blood Pressure 125/80 126/86 Pulse Oximetry 100 100 Oxygen Delivery Fraction of Inspired Oxygen 60 01/21/25 20:00 01/21/25 20:00 01/21/25 20:00 Temperature Pulse Rate 60 60 Respiratory Rate 14 14 Blood Pressure Pulse Oximetry 100 Oxygen Delivery Mechanical Ventilation Fraction of Inspired Oxygen 60 01/21/25 20:00 01/21/25 20:30 01/21/25 22:00 Temperature Pulse Rate 60 62 68 Respiratory Rate 13 Blood Pressure Pulse Oximetry 100 Oxygen Delivery Mechanical Ventilation Fraction of Inspired Oxygen 60 01/21/25 22:00 01/21/25 22:00 01/21/25 22:00 Temperature 97.3 F L Pulse Rate 68 68 68 Respiratory Rate 13 13 Blood Pressure 135/91 H Pulse Oximetry 100 Oxygen Delivery Fraction of Inspired Oxygen 01/21/25 23:10 01/22/25 00:00 01/22/25 00:00 Temperature Pulse Rate 62 61 Respiratory Rate 14 Blood Pressure Pulse Oximetry 100 Oxygen Delivery Mechanical Ventilation Fraction of Inspired Oxygen 50 40 01/22/25 00:00 01/22/25 00:00 01/22/25 00:00 Temperature 97.6 F Pulse Rate 61 61 Respiratory Rate 14 14 Blood Pressure 127/88 Pulse Oximetry 100 99 Oxygen Delivery Mechanical Ventilation Fraction of Inspired Oxygen 40 01/22/25 00:00 01/22/25 02:00 01/22/25 02:00 Temperature 98.2 F Pulse Rate 61 69 69 Respiratory Rate 14 Blood Pressure 128/87 Pulse Oximetry 100 Oxygen Delivery Fraction of Inspired Oxygen 01/22/25 02:00 01/22/25 02:00 01/22/25 02:00 Temperature Pulse Rate 69 70 70 Respiratory Rate 14 14 14 Blood Pressure Pulse Oximetry Oxygen Delivery Fraction of Inspired Oxygen 01/22/25 02:18 01/22/25 04:00 01/22/25 04:00 Temperature Pulse Rate 72 Respiratory Rate Blood Pressure Pulse Oximetry 99 96 Oxygen Delivery Mechanical Ventilation Mechanical Ventilation Fraction of Inspired Oxygen 40 30 30 01/22/25 04:00 01/22/25 04:00 01/22/25 04:00 Temperature 99.1 F Pulse Rate 78 80 78 Respiratory Rate 14 14 Blood Pressure 149/102 H Pulse Oximetry 96 Oxygen Delivery Fraction of Inspired Oxygen 01/22/25 04:00 01/22/25 05:45 01/22/25 06:00 Temperature Pulse Rate 80 76 61 Respiratory Rate 14 Blood Pressure Pulse Oximetry 96 Oxygen Delivery Mechanical Ventilation Fraction of Inspired Oxygen 30 01/22/25 06:00 01/22/25 06:00 01/22/25 06:00 Temperature 98.5 F Pulse Rate 80 80 80 Respiratory Rate 14 14 14 Blood Pressure 150/98 H Pulse Oximetry 100 Oxygen Delivery Fraction of Inspired Oxygen 01/22/25 07:55 01/22/25 08:00 01/22/25 08:00 Temperature Pulse Rate 67 Respiratory Rate 16 Blood Pressure Pulse Oximetry 98 96 Oxygen Delivery Mechanical Ventilation Mechanical Ventilation Fraction of Inspired Oxygen 30 30 30 01/22/25 08:00 01/22/25 08:00 01/22/25 10:00 Temperature 98.0 F Pulse Rate 68 65 63 Respiratory Rate 16 16 Blood Pressure 136/89 129/82 Pulse Oximetry 98 96 Oxygen Delivery Fraction of Inspired Oxygen 01/22/25 10:00 01/22/25 10:58 01/22/25 12:00 Temperature 98.1 F Pulse Rate 63 63 61 Respiratory Rate 13 Blood Pressure 121/80 Pulse Oximetry 96 97 Oxygen Delivery Mechanical Ventilation Fraction of Inspired Oxygen 30 01/22/25 12:00 01/22/25 12:00 01/22/25 14:00 Temperature Pulse Rate 61 65 Respiratory Rate Blood Pressure Pulse Oximetry Oxygen Delivery Fraction of Inspired Oxygen 30 01/22/25 14:00 Temperature Pulse Rate 65 Respiratory Rate 16 Blood Pressure 140/90 Pulse Oximetry 91 Oxygen Delivery Fraction of Inspired Oxygen Intake/Output Intake/Output: Intake & Output 08/01/20/25 01/21/25 01/22/25 23:59 23:59 23:59 23:59 Intake Total 4025.8 2602 415 Output Total 1330 1300 1100 Balance 2695.8 1302 -025 Meds/Results Medications: Active Medications Generic Name Dose Route Start Last Admin Trade Name Freq PRN Reason Stop Dose Admin Dextrose 12.5 gm 01/20/25 08:23 Dextrose 50% 25 Gm/50 Ml Syringe IV PUSH PRN PRN Hypoglycemia Protocol Epoetin Emil-epbx 10,000 units 01/23/25 09:00 Epoetin Emil-Epbx 10,000 Units/Ml Vial SUB-Q TUTHSA@09 MEENA Folic Acid 1 mg 01/20/25 09:00 01/22/25 08:12 Folic Acid 1 Mg/0.2 Ml Inj IV PUSH 1 mg QAM MEENA Administration Glucagon 1 mg 01/20/25 08:23 Glucagon For Inj 1 Mg Vial IM PRN PRN Hypoglycemia Protocol Glucose 15 gm 01/20/25 08:23 Glucose Oral Gel 15 Gm Of Glucse In 37.5 Gm Tube PO PRN PRN Hypoglycemia Protocol Dextrose 1,000 mls @ 100 mls/hr 01/20/25 08:23 Dextrose 5% 1,000 Ml IVPB PRN PRN Hypoglycemia Protocol Fentanyl Citrate 2,500 mcg in 250 mls @ 5 mls/hr 01/21/25 00:05 01/22/25 06:00 Fentanyl 2,500 Mcg/Ns 250 Ml IV CONT 50 mcg/hr .Q50H MEENA 5 mls/hr Protocol Titration 50 MCG/HR Midazolam HCl 100 mg in 100 mls @ 4 mls/hr 01/21/25 00:05 01/22/25 06:00 Versed 100 Mg/Ns 100 Ml IV CONT 4 mg/hr .Q25H MEENA 4 mls/hr Protocol Titration 4 MG/HR Piperacillin Sod/Tazobactam 50 mls @ 100 mls/hr 01/21/25 08:00 01/22/25 15:28 Sod 2.25 gm/ Sodium Chloride IVPB 100 mls/hr Q8H MEENA Administration Insulin Aspart 3 - 6 units 01/20/25 12:00 01/22/25 12:26 Insulin Aspart (*Bkc) 100 Units/Ml SUB-Q Not Given Q6HR [facility] Protocol Multi-Ingred Cream/Lotion/Oil/Oint 1 applic 01/22/25 21:00 Mineral Oil/White Petrolatum Ointment EACH EYE Q12HR [facility] Mupirocin 1 applic 01/20/25 09:00 01/22/25 08:12 Mupirocin 2% Oint 22 Gm Tube EACH NARE 01/24/25 21:01 1 applic Q12HR [facility] Administration Pantoprazole Sodium 40 mg 01/21/25 09:00 01/22/25 08:12 Pantoprazole Sodium Iv 40 Mg Vial IV PUSH 40 mg Q12HR [facility] Administration Sodium Chloride 10 ml 01/20/25 06:00 01/22/25 13:27 Central Line Flush IV PUSH 10 ml Q8HR [facility] Administration Sodium Chloride 20 ml 01/20/25 01:15 Central Line Flush IV PUSH PRN PRN after blood draws Thiamine HCl 100 mg 01/20/25 09:00 01/22/25 08:12 Thiamine Hcl 200 Mg/2 Ml Vial IV PUSH 100 mg QAM [facility] Administration Vancomycin HCl 1 each 01/22/25 11:10 Vancomycin For Acute Kidney Injury IVPB PER PROTOCOL [facility] Radiology Results: ITS Impressions Abdomen X-Ray 01/20/25 05:42 Impression: NG tube in satisfactory position. Small left pleural effusion. Chest/Abdomen/Pelvis CT 01/20/25 05:48 Impression: Moderate to large left pleural effusion with extensive left lower lobe atelectasis. Small right pleural effusion. 9 mm spiculated nodule in the right lower lobe, as detailed above, indeterminate. CT scan in 3 months advised. Consider PET/CT or attempted tissue sampling as indicated. Moderate emphysema. No definite evidence for GI bleed, but evaluation is limited without IV contrast and with oral contrast on board. Consider follow-up CT angiogram of the bowel to further evaluate for GI bleed, as indicated. Moderate abdominopelvic ascites. T12 compression fracture, somewhat age indeterminate, but new since 06/20/2024. Fractures of the right anterior acetabulum at the junction of the right superior pubic ramus and of the right inferior pubic ramus, acute to subacute in nature. Head CT 01/20/25 06:13 Impression: No intracranial hemorrhage, mass, or acute infarct. Atrophy and chronic white matter changes, as above. Wrist X-Ray 01/20/25 06:13 Impression: Probable chronic fracture deformities of the distal radius and ulnar styloid process, as detailed above. No definite acute fracture. Renal Ultrasound 01/21/25 08:42 IMPRESSION: 1. Medical renal disease. 2. Mild bilateral hydronephrosis. No nephrolithiasis. Chest X-Ray 01/22/25 05:49 Impression: Small left pleural effusion with left lower lobe atelectasis or pneumonia. Worsening central airspace haziness in the lungs, compatible with mild central pulmonary edema. Support tubes, as above. Labs Labs: Laboratory Results - last 24 hr 01/21/25 01/21/25 01/21/25 06:36 17:16 18:50 WBC 8.1 RBC 3.25 L Hgb 9.5 L Hct 29.4 L MCV 90.5 MCH 29.2 MCHC 32.3 RDW 16.0 H Plt Count 61 L MPV 9.8 Immature Gran % (Auto) Neut % (Auto) Lymph % (Auto) [place] % (Auto) Eos % (Auto) Baso % (Auto) Lymph # (Auto) [place] # (Auto) Eos # (Auto) Baso # (Auto) Abs Immat Gran (auto) Absolute Neuts (auto) Absolute Nucleated RBC Nucleated RBC % % Immature Plt Fraction 2.4 Puncture Site ABG pH ABG pCO2 ABG pO2 ABG PO2/FiO2 Ratio ABG HCO3 ABG O2 Saturation ABG O2 Content ABG Base Excess A-a Gradient Oxyhemoglobin Carboxyhemoglobin Methemoglobin Reduced Hemoglobin Total Hemoglobin O2 Delivery Device O2 Liters/Min Minute Volume Vent Rate Vent Mode FiO2 Tidal Volume PEEP Peak Inspir Pressure Pressure Support Sodium Potassium Chloride Carbon Dioxide Anion Gap BUN Creatinine Estim Creat Clear Calc Estimated GFR Glucose POC Capillary Glucose 91 Calcium Total Bilirubin AST ALT Alkaline Phosphatase Total Protein Albumin Cryoglobulin Qualit Hep B Core Total Ab Negative 01/22/25 01/22/25 01/22/25 00:49 04:31 05:06 WBC 10.0 RBC 3.47 L Hgb 10.1 L Hct 31.7 L MCV 91.4 MCH 29.1 MCHC 31.9 L RDW 16.5 H Plt Count 61 L MPV 9.9 Immature Gran % (Auto) 1.1 H Neut % (Auto) 76.5 H Lymph % (Auto) 11.6 L [place] % (Auto) 8.9 H Eos % (Auto) 1.8 Baso % (Auto) 0.1 L Lymph # (Auto) 1.16 [place] # (Auto) 0.9 H Eos # (Auto) 0.2 Baso # (Auto) 0.0 Abs Immat Gran (auto) 0.11 H Absolute Neuts (auto) 7.7 H Absolute Nucleated RBC 0.030 H Nucleated RBC % 0.3 H % Immature Plt Fraction 2.2 Puncture Site Right radial ABG pH 7.341 L ABG pCO2 45.9 H ABG pO2 78.0 L ABG PO2/FiO2 Ratio 2.60 ABG HCO3 24.3 ABG O2 Saturation 94.8 L ABG O2 Content 14.9 L ABG Base Excess -1.6 A-a Gradient 82.0 Oxyhemoglobin 94.4 Carboxyhemoglobin 0.6 Methemoglobin 0.1 Reduced Hemoglobin 4.9 Total Hemoglobin 11.2 L O2 Delivery Device Ventilator O2 Liters/Min Not Reportable Minute Volume Not Reportable Vent Rate 14 Vent Mode Cmv FiO2 30 Tidal Volume 320 PEEP 10 Peak Inspir Pressure Not Reportable Pressure Support Not Reportable Sodium 143 Potassium 3.8 Chloride 106 Carbon Dioxide 27 Anion Gap 10 BUN 82 H Creatinine 2.83 H Estim Creat Clear Calc 12 Estimated GFR 17 L Glucose 96 POC Capillary Glucose 101 Calcium 8.1 L Total Bilirubin 1.9 H AST 25 ALT 37 H Alkaline Phosphatase 62 Total Protein 5.2 L Albumin 3.3 L Cryoglobulin Qualit Hep B Core Total Ab 01/22/25 01/22/25 01/22/25 09:13 11:10 12:24 WBC RBC Hgb Hct MCV MCH MCHC RDW Plt Count MPV Immature Gran % (Auto) Neut % (Auto) Lymph % (Auto) [place] % (Auto) Eos % (Auto) Baso % (Auto) Lymph # (Auto) [place] # (Auto) Eos # (Auto) Baso # (Auto) Abs Immat Gran (auto) Absolute Neuts (auto) Absolute Nucleated RBC Nucleated RBC % % Immature Plt Fraction Puncture Site ABG pH ABG pCO2 ABG pO2 ABG PO2/FiO2 Ratio ABG HCO3 ABG O2 Saturation ABG O2 Content ABG Base Excess A-a Gradient Oxyhemoglobin Carboxyhemoglobin Methemoglobin Reduced Hemoglobin Total Hemoglobin O2 Delivery Device O2 Liters/Min Minute Volume Vent Rate Vent Mode FiO2 Tidal Volume PEEP Peak Inspir Pressure Pressure Support Sodium Potassium Chloride Carbon Dioxide Anion Gap BUN Creatinine Estim Creat Clear Calc Estimated GFR Glucose POC Capillary Glucose 107 H 114 H Calcium Total Bilirubin AST ALT Alkaline Phosphatase Total Protein Albumin Cryoglobulin Qualit Hep B Core Total Ab 01/22/25 12:46 WBC 8.9 RBC 3.42 L Hgb 9.9 L Hct 31.1 L MCV 90.9 MCH 28.9 MCHC 31.8 L RDW 16.7 H Plt Count 55 L MPV 10.5 H Immature Gran % (Auto) Neut % (Auto) Lymph % (Auto) [place] % (Auto) Eos % (Auto) Baso % (Auto) Lymph # (Auto) [place] # (Auto) Eos # (Auto) Baso # (Auto) Abs Immat Gran (auto) Absolute Neuts (auto) Absolute Nucleated RBC Nucleated RBC % % Immature Plt Fraction 1.7 Puncture Site ABG pH ABG pCO2 ABG pO2 ABG PO2/FiO2 Ratio ABG HCO3 ABG O2 Saturation ABG O2 Content ABG Base Excess A-a Gradient Oxyhemoglobin Carboxyhemoglobin Methemoglobin Reduced Hemoglobin Total Hemoglobin O2 Delivery Device O2 Liters/Min Minute Volume Vent Rate Vent Mode FiO2 Tidal Volume PEEP Peak Inspir Pressure Pressure Support Sodium Potassium Chloride Carbon Dioxide Anion Gap BUN Creatinine Estim Creat Clear Calc Estimated GFR Glucose POC Capillary Glucose Calcium Total Bilirubin AST ALT Alkaline Phosphatase Total Protein Albumin Cryoglobulin Qualit Hep B Core Total Ab
--- NOTE | 2025-01-22 19:46 | PC.NURSE ---
Clarified tube feeding orders with Dr Beltran and tube feeding is to be increased to 40ml/hour per order.
[2025-01-22 20:06] LABS: Hematocrit 32.3 % (37.0-47.0); Hemoglobin 10.2 g/dL (12.0-15.0); Immature Platelet Fraction Pct 2.5 % (0.9-11.2); Mean Corpuscular HGB Conc 31.6 g/dl (32-36); Mean Corpuscular Hemoglobin 28.8 pg (26-34); Mean Corpuscular Volume 91.2 fl (80-100); Platelet Count Result 52 k/mm3 (150-375); Red Blood Count 3.54 M/mm3 (4.2-5.4); White Blood Count 8.9 K/mm3 (4.5-10.0)
[2025-01-22] MEDS: MINERAL OIL/WHITE PETROLATUM OINTMENT 1 APPLIC EACH EYE (21:00)
--- NOTE | 2025-01-22 21:40 | PC.NURSE ---
2119 Pt moved to new bed
[2025-01-23] VITALS (27 sets, daily range): BP systolic 123–162; BP diastolic 79–121; PULSE 30–106; RESP 12–25; TEMP 36.2–39.2; O2SAT 92–98
[2025-01-23] MEDS: PIPERACILLIN/TAZOBACTAM SOD 2.25 GM in SODIUM CHLORIDE 0.9% IV 50 ML 100 ML IVPB ×4 (00:43→23:57)
[2025-01-23 02:11] LABS: Hematocrit 32.6 % (37.0-47.0); Hemoglobin 10.3 g/dL (12.0-15.0); Immature Platelet Fraction Pct 2.5 % (0.9-11.2); Mean Corpuscular HGB Conc 31.6 g/dl (32-36); Mean Corpuscular Hemoglobin 28.7 pg (26-34); Mean Corpuscular Volume 90.8 fl (80-100); Platelet Count Result 51 k/mm3 (150-375); Red Blood Count 3.59 M/mm3 (4.2-5.4); White Blood Count 9.1 K/mm3 (4.5-10.0)
[2025-01-23 02:29] LABS: Alanine Aminotransferase 33 U/L (6-35); Albumin Level 3.0 g/dL (3.5-5.1); Alkaline Phosphatase 62 U/L (38-126); Anion Gap 9 mmol/L (4-12); Aspartate Amino Transferase 25 U/L (14-36); Bilirubin,Total 1.6 mg/dL (0.2-1.3); Blood Urea Nitrogen 81 mg/dL (7-17); Calcium 8.0 mg/dL (8.4-10.2); Carbon Dioxide 30 mmol/L (22-30); Chloride 105 mmol/L (98-107); Estimated CRCL calculation 13 ml/min; Estimated Glomerular Filt Rate 17; Glucose 110 mg/dL (65-110); Potassium 2.9 mmol/L (3.4-5.0); Sodium 144 mmol/L (137-145); Total Protein 5.0 g/dL (6.3-8.2)
[2025-01-23] MEDS: MIDAZOLAM 100MG/NS 100ML(*CRX) 100 MG/100 ML BAG IV CONT (05:09)
[2025-01-23] MEDS: CENTRAL LINE FLUSH 10 ML IV PUSH ×3 (05:09→20:36)
[2025-01-23 05:35] LABS: Alveolar/Arterial O2 Gradient 109.9 mmHg; Carboxyhemoglobin 0.9 % THb (0-2.0); Fractional Inspired Oxygen 30 %; HCO3 ABG 28.4 mEq/l (22.0-26.0); Methemoglobin ABG 0.2 %THb (0-1.5); Oxygen Content ABG 13.8 %vol (16.0-22.0); PCO2 ABG 44.8 mmHg (35.0-45.0); PO2 ABG 51.4 mmHg (80.0-100.0); PO2 FiO2 Ratio Arterial Blood 1.71 %; Reduced Hemoglobin 14.6 %THb (0-5.0)
[2025-01-23 05:42] LABS: Oxygen Saturation ABG 86.9 % (95.0-100.0)
[2025-01-23 05:43] LABS: Site Drawn RIGHT BRACHIAL
[2025-01-23 05:48] LABS: Arterial Blood Gas Tidal Volume 320 ml; Arterial Blood Gas Ventilator rate 16 /MIN
--- NOTE | 2025-01-23 05:48 | PC.NURSE ---
Dr Beltran called per low, but not critical, potassium of 2.9. 40mEq PO and IV ordered. Also updated per ABG results.
[2025-01-23] MEDS: POTASSIUM CHLORIDE 20 MEQ PACKET (FOR LIQUID) 40 MEQ PO (06:08)
[2025-01-23] MEDS: KCL 40 MEQ/WATER 100 ML 100 ML 25 ML IVPB (06:13)
--- NOTE | 2025-01-23 08:23 | WPDINTPN ---
Progress Note: A&P Assessment and Plan (1) Acute upper GI bleeding: Code(s): K92.2 - Gastrointestinal hemorrhage, unspecified Status: Acute Assessment and Plan: Acute upper GI bleed 01/20 EGD showed reflux esophagitis and hiatal hernia Status post transfusion of multiple units of PRBC Coagulopathy cryo FFP Hemoglobin appears to be now stable I will continue monitoring hemoglobin and transfuse additional PRBC if needed continue IV PPI. Octreotide was discontinued GI following (2) Transaminitis: Code(s): R74.01 - Elevation of levels of liver transaminase levels Status: Acute Assessment and Plan: AST and ALT mildly elevated likely consistent with alcoholic liver disease. Hepatitis C antibody screen is positive. RNA quantitative is pending (3) Alcoholic cirrhosis of liver with ascites: Code(s): K70.31 - Alcoholic cirrhosis of liver with ascites Status: Acute Assessment and Plan: Patient has cirrhosis from alcohol liver disease with CT scan showing ascites (4) Acute kidney injury superimposed on stage 4 chronic kidney disease: Code(s): N17.9 - Acute kidney failure, unspecified; N18.4 - Chronic kidney disease, stage 4 (severe) Status: Acute Assessment and Plan: Baseline creatinine in mid 2 Patient was given IV fluids but now off due to concern of volume overload and patient has also received significant amount of blood products. Creatinine improved to 2.79 Monitor urine output electrolytes and creatinine CT scans not show any obstruction or stone Renal ultrasound showed mild bilateral hydronephrosis without any stones Nephrology consulted and following. Patient may need renal replacement therapy if renal function deteriorates Continue diuretics for volume overload. She has had good urine output in response to Lasix Replace potassium (5) Acute hypoxic respiratory failure: Code(s): J96.01 - Acute respiratory failure with hypoxia Status: Acute Assessment and Plan: Acute respiratory failure secondary to aspiration pneumonia pleural effusion upper GI bleed with underlying COPD Ventilator settings reviewed patient is on CMV Currently at a rate of 16, PEEP to 8, FiO2 is at 30-40% Chest x-ray reviewed and patient will need additional diuresis and weaning down of PEEP of before weaning trial Imaging reviewed suggest mild pulmonary edema or volume overload. ARDS and pneumonia also possibility Continue diuretics as tolerated Continue MD bronchodilator I will to sedation holiday and evaluate for weaning trial (6) Coagulopathy: Code(s): D68.9 - Coagulation defect, unspecified Status: Acute Assessment and Plan: Coagulopathy secondary to cirrhosis and sepsis Patient received cryo and platelets. She is also received 2 units of FFP (7) Sepsis: Code(s): A41.9 - Sepsis, unspecified organism Status: Acute Assessment and Plan: Sepsis likely secondary to pneumonia which could be aspiration Blood cultures and showing GPC on GS On IV Zosyn And vancomycin identification is pending UA and micro also suggestive UTI. Urine cultures pending (8) Anemia: Code(s): D64.9 - Anemia, unspecified Status: Acute Assessment and Plan: Likely multifactorial anemia from iron deficiency and anemia of chronic kidney disease along with acute blood loss Patient received a dose of iron And she has received for units of PRBC. Hemoglobin appears to have stabilized Monitor and transfuse additional if needed Management of GI bleeding as above Neupogen per Nephrology (9) Thrombocytopenia: Code(s): D69.6 - Thrombocytopenia, unspecified Status: Acute Assessment and Plan: Thrombocytopenia likely combination of sepsis and cirrhosis. 01/20 Platelet transfusion Will repeat CBC later this afternoon hold any anticoagulation (10) Alcohol abuse: Code(s): F10.10 - Alcohol abuse, uncomplicated Status: Acute Assessment and Plan: History of alcohol abuse. At this time patient is sedated with Versed and fentanyl. Continue thiamine and folic acid (11) Severe protein-calorie malnutrition: Code(s): E43 - Unspecified severe protein-calorie malnutrition Status: Acute Assessment and Plan: Appears well nourished and cachectic. Patient was NPO due to GI bleed. Now on tube feeds. (12) Acetabular fracture: Qualifiers: Encounter type: initial encounter Fracture alignment: nondisplaced Fracture type: closed Laterality: right Sublocation of acetabulum: unspecified portion of acetabulum Qualified Code(s): S32.401A - Unspecified fracture of right acetabulum, initial encounter for closed fracture Code(s): S32.409A - Unspecified fracture of unspecified acetabulum, initial encounter for closed fracture Status: Acute Assessment and Plan: Orthopedics consulted. Obtain records from [facility], [place], [facility] (13) Distal radial fracture: Qualifiers: Encounter type: subsequent encounter Fracture type: closed Fracture morphology: unspecified fracture morphology Laterality: left Fracture healing: with nonunion Qualified Code(s): S52.502K - Unspecified fracture of the lower end of left radius, subsequent encounter for closed fracture with nonunion Code(s): S52.509A - Unspecified fracture of the lower end of unspecified radius, initial encounter for closed fracture Status: Acute Assessment and Plan: Currently in splint. Orthopedics consulted Plan DVT prophylaxis -SCDs Stress ulcer prophylaxis -Protonix IV Nutrition -continue tube feeds Code Status - Full Code Total Critical Care Time - 30 minutes Due to a high probability of clinically significant, life threatening deterioration, the patient required my highest level of preparedness to intervene emergently and I personally spent this critical care time directly and personally managing the patient. This critical care time included obtaining a history; examining the patient; pulse oximetry; ordering and review of studies; arranging urgent treatment with development of a management plan; evaluation of patient's response to treatment; frequent reassessment; and discussions with other providers. It was exclusive of separately billable procedures and treating other patients and teaching time. Please see Assessment and Plan section and the rest of the note for further information on patient assessment and treatment Subjective Date/time seen: 01/23/25 Overnight events reviewed. Afebrile Continues to be on mechanical ventilation 30% FiO2 and 8 of PEEP Tolerating tube feed Continues to be sedated with Versed and fentanyl Sinus rhythm on the monitor. Adequate blood pressure. Good urine output in response to Lasix. Review of Systems Review of Systems: ROS unobtainable: Yes unobtainable due to endotracheal tube, unobtainable due to medical condition and unobtainable due to mental status Exam Narrative: General: Pt is cachectic old female who looks much older than her age. She is Sedated, intubated and on mechanical ventilation Lungs/Chest: Trachea central Coarse BS B/L, No crackles or wheezing. Overall decreased air movement throughout lungs with barrel chest Cardiac: RRR. Normal S1 S2. No murmurs Circulation: Pedal pulses are intact and symmetrical. Abdomen: Decreased bowel sounds.. Soft. NT. ND. Extremities: No clubbing, cyanosis or edema. Feet are cold : Mclean in place Neurologic: Unable to assess due to sedation. She tries to open her eyes on on calling her name but does not follow commands. She does move all extremities to painful stimuli. PERRL Skin: Petechia on the chest Objective Data Vital Signs Vital Signs: Vital Signs - 24 hr 01/22/25 10:00 01/22/25 10:00 01/22/25 10:00 Temperature Pulse Rate 63 63 61 Respiratory Rate 16 14 Blood Pressure 129/82 Pulse Oximetry 96 Oxygen Delivery Fraction of Inspired Oxygen 01/22/25 10:00 01/22/25 10:58 01/22/25 12:00 Temperature 36.7 C Pulse Rate 63 63 61 Respiratory Rate 16 13 Blood Pressure 121/80 Pulse Oximetry 96 97 Oxygen Delivery Mechanical Ventilation Fraction of Inspired Oxygen 30 01/22/25 12:00 01/22/25 12:00 01/22/25 12:00 Temperature Pulse Rate 61 61 Respiratory Rate 13 Blood Pressure Pulse Oximetry Oxygen Delivery Fraction of Inspired Oxygen 30 01/22/25 12:00 01/22/25 12:00 01/22/25 14:00 Temperature Pulse Rate 61 65 Respiratory Rate 13 Blood Pressure Pulse Oximetry 95 Oxygen Delivery Mechanical Ventilation Fraction of Inspired Oxygen 30 01/22/25 14:00 01/22/25 14:00 01/22/25 14:00 Temperature Pulse Rate 65 55 L 65 Respiratory Rate 16 16 Blood Pressure 140/90 Pulse Oximetry 91 97 Oxygen Delivery Mechanical Ventilation Fraction of Inspired Oxygen 30 01/22/25 14:00 01/22/25 16:00 01/22/25 16:00 Temperature Pulse Rate 65 62 62 Respiratory Rate 16 16 16 Blood Pressure Pulse Oximetry Oxygen Delivery Fraction of Inspired Oxygen 01/22/25 16:00 01/22/25 16:00 01/22/25 16:00 Temperature 36.7 C Pulse Rate 61 62 Respiratory Rate 16 Blood Pressure 131/86 Pulse Oximetry 94 Oxygen Delivery Fraction of Inspired Oxygen 30 01/22/25 16:00 01/22/25 16:55 01/22/25 18:00 Temperature Pulse Rate 56 L 60 Respiratory Rate Blood Pressure Pulse Oximetry 95 95 Oxygen Delivery Mechanical Ventilation Mechanical Ventilation Fraction of Inspired Oxygen 30 30 01/22/25 18:00 01/22/25 18:00 01/22/25 18:00 Temperature Pulse Rate 60 60 60 Respiratory Rate 16 16 16 Blood Pressure 134/85 Pulse Oximetry 94 Oxygen Delivery Fraction of Inspired Oxygen 01/22/25 20:00 01/22/25 20:00 01/22/25 20:00 Temperature Pulse Rate 59 L 59 L 56 L Respiratory Rate 17 17 Blood Pressure Pulse Oximetry Oxygen Delivery Fraction of Inspired Oxygen 01/22/25 20:00 01/22/25 20:00 01/22/25 20:00 Temperature 36.2 C L Pulse Rate 62 Respiratory Rate 14 Blood Pressure 150/101 H Pulse Oximetry 100 100 Oxygen Delivery Mechanical Ventilation Fraction of Inspired Oxygen 30 30 01/22/25 20:20 01/22/25 22:00 01/22/25 22:00 Temperature Pulse Rate 57 L 51 L 51 L Respiratory Rate 16 16 Blood Pressure Pulse Oximetry 100 Oxygen Delivery Mechanical Ventilation Fraction of Inspired Oxygen 30 01/22/25 22:00 01/22/25 22:00 01/22/25 23:22 Temperature 36.0 C L Pulse Rate 51 L 53 L 53 L Respiratory Rate 16 Blood Pressure 147/93 H Pulse Oximetry 100 99 Oxygen Delivery Mechanical Ventilation Fraction of Inspired Oxygen 30 01/23/25 00:00 01/23/25 00:00 01/23/25 00:00 Temperature Pulse Rate 53 L 53 L 53 L Respiratory Rate 16 16 Blood Pressure Pulse Oximetry Oxygen Delivery Fraction of Inspired Oxygen 01/23/25 00:00 01/23/25 00:00 01/23/25 00:00 Temperature 36.2 C L Pulse Rate 54 L Respiratory Rate 14 Blood Pressure 128/81 Pulse Oximetry 98 95 Oxygen Delivery Mechanical Ventilation Fraction of Inspired Oxygen 30 30 01/23/25 02:00 01/23/25 02:00 01/23/25 02:00 Temperature 36.3 C L Pulse Rate 56 L 56 L 56 L Respiratory Rate 16 16 Blood Pressure 137/90 Pulse Oximetry 95 Oxygen Delivery Fraction of Inspired Oxygen 01/23/25 02:00 01/23/25 02:15 01/23/25 04:00 Temperature Pulse Rate 56 L 60 106 H Respiratory Rate 16 Blood Pressure Pulse Oximetry 97 Oxygen Delivery Mechanical Ventilation Fraction of Inspired Oxygen 30 01/23/25 04:00 01/23/25 04:00 01/23/25 04:00 Temperature Pulse Rate 64 64 30 L Respiratory Rate 16 16 Blood Pressure Pulse Oximetry 95 Oxygen Delivery Mechanical Ventilation Fraction of Inspired Oxygen 01/23/25 04:00 01/23/25 04:00 01/23/25 04:48 Temperature 36.6 C Pulse Rate 66 70 Respiratory Rate 16 Blood Pressure 141/94 H Pulse Oximetry 93 96 Oxygen Delivery Mechanical Ventilation Fraction of Inspired Oxygen 30 30 01/23/25 05:09 01/23/25 06:00 01/23/25 06:00 Temperature 37.3 C Pulse Rate 72 75 75 Respiratory Rate 16 16 Blood Pressure 160/97 H Pulse Oximetry 97 Oxygen Delivery Fraction of Inspired Oxygen 01/23/25 06:02 01/23/25 06:02 01/23/25 08:00 Temperature Pulse Rate 75 75 81 Respiratory Rate 17 17 Blood Pressure Pulse Oximetry 98 Oxygen Delivery Mechanical Ventilation Fraction of Inspired Oxygen 30 Intake/Output Intake/Output: Intake & Output 01/20/25 01/21/25 01/22/25 01/23/25 23:59 23:59 23:59 23:59 Intake Total 4025.8 2602 1028 681.6 Output Total 1330 1300 3175 1900 Balance 2695.8 8182 -2147 -1218.4 Meds/Results Medications: Active Medications Generic Name Dose Route Start Last Admin Trade Name Freq PRN Reason Stop Dose Admin Dextrose 12.5 gm 01/20/25 08:23 Dextrose 50% 25 Gm/50 Ml Syringe IV PUSH PRN PRN Hypoglycemia Protocol Epoetin Emil-epbx 10,000 units 01/23/25 09:00 Epoetin Emil-Epbx 10,000 Units/Ml Vial SUB-Q TUTHSA@09 MEENA Folic Acid 1 mg 01/20/25 09:00 01/22/25 08:12 Folic Acid 1 Mg/0.2 Ml Inj IV PUSH 1 mg QAM MEENA Administration Glucagon 1 mg 01/20/25 08:23 Glucagon For Inj 1 Mg Vial IM PRN PRN Hypoglycemia Protocol Glucose 15 gm 01/20/25 08:23 Glucose Oral Gel 15 Gm Of Glucse In 37.5 Gm Tube PO PRN PRN Hypoglycemia Protocol Dextrose 1,000 mls @ 100 mls/hr 01/20/25 08:23 Dextrose 5% 1,000 Ml IVPB PRN PRN Hypoglycemia Protocol Fentanyl Citrate 2,500 mcg in 250 mls @ 7.5 mls/hr 01/21/25 00:05 01/23/25 06:02 Fentanyl 2,500 Mcg/Ns 250 Ml IV CONT 75 mcg/hr .[id number] MEENA 7.5 mls/hr Protocol Titration 75 MCG/HR Midazolam HCl 100 mg in 100 mls @ 5 mls/hr 01/21/25 00:05 01/23/25 06:02 Versed 100 Mg/Ns 100 Ml IV CONT 5 mg/hr .Q20H MEENA 5 mls/hr Protocol Titration 5 MG/HR Piperacillin Sod/Tazobactam 50 mls @ 100 mls/hr 01/21/25 08:00 01/23/25 01:22 Sod 2.25 gm/ Sodium Chloride IVPB Infused Q8H MEENA Infusion Potassium Chloride 100 mls @ 25 mls/hr 01/23/25 05:47 01/23/25 06:13 Kcl 40 Meq/Water 100 Ml IVPB 01/23/25 09:46 25 mls/hr ONCE ONE Administration Insulin Aspart 3 - 6 units 01/20/25 12:00 01/23/25 06:15 Insulin Aspart (*Bkc) 100 Units/Ml SUB-Q Not Given Q6HR [facility] Protocol Multi-Ingred Cream/Lotion/Oil/Oint 1 applic 01/22/25 21:00 01/22/25 21:00 Mineral Oil/White Petrolatum Ointment EACH EYE 1 applic Q12HR MEENA Administration Mupirocin 1 applic 01/20/25 09:00 01/22/25 20:58 Mupirocin 2% Oint 22 Gm Tube EACH NARE 01/24/25 21:01 1 applic Q12HR MEENA Administration Pantoprazole Sodium 40 mg 01/21/25 09:00 01/22/25 20:58 Pantoprazole Sodium Iv 40 Mg Vial IV PUSH 40 mg Q12HR MEENA Administration Potassium Bicarbonate 25 meq 01/23/25 10:00 Potassium Bicarbonate 25 Meq Tabef FEED TUBE 01/23/25 10:01 ONCE ONE Sodium Chloride 10 ml 01/20/25 06:00 01/23/25 05:09 Central Line Flush IV PUSH 10 ml Q8HR [facility] Administration Sodium Chloride 20 ml 01/20/25 01:15 Central Line Flush IV PUSH PRN PRN after blood draws Thiamine HCl 100 mg 01/20/25 09:00 01/22/25 08:12 Thiamine Hcl 200 Mg/2 Ml Vial IV PUSH 100 mg QAM [facility] Administration Vancomycin HCl 1 each 01/22/25 11:10 Vancomycin For Acute Kidney Injury IVPB PER PROTOCOL [facility] Radiology Results: ITS Impressions Abdomen X-Ray 01/20/25 05:42 Impression: NG tube in satisfactory position. Small left pleural effusion. Chest/Abdomen/Pelvis CT 01/20/25 05:48 Impression: Moderate to large left pleural effusion with extensive left lower lobe atelectasis. Small right pleural effusion. 9 mm spiculated nodule in the right lower lobe, as detailed above, indeterminate. CT scan in 3 months advised. Consider PET/CT or attempted tissue sampling as indicated. Moderate emphysema. No definite evidence for GI bleed, but evaluation is limited without IV contrast and with oral contrast on board. Consider follow-up CT angiogram of the bowel to further evaluate for GI bleed, as indicated. Moderate abdominopelvic ascites. T12 compression fracture, somewhat age indeterminate, but new since 06/20/2024. Fractures of the right anterior acetabulum at the junction of the right superior pubic ramus and of the right inferior pubic ramus, acute to subacute in nature. Head CT 01/20/25 06:13 Impression: No intracranial hemorrhage, mass, or acute infarct. Atrophy and chronic white matter changes, as above. Wrist X-Ray 01/20/25 06:13 Impression: Probable chronic fracture deformities of the distal radius and ulnar styloid process, as detailed above. No definite acute fracture. Renal Ultrasound 01/21/25 08:42 IMPRESSION: 1. Medical renal disease. 2. Mild bilateral hydronephrosis. No nephrolithiasis. Chest X-Ray 01/23/25 08:11 Impression: 1: Borderline heart size with pulmonary edema. No significant change. Labs Labs: Laboratory Results - last 24 hr 01/20/25 01/22/25 01/22/25 05:17 09:13 11:10 WBC RBC Hgb Hct MCV MCH MCHC RDW Plt Count MPV % Immature Plt Fraction Puncture Site ABG pH ABG pCO2 ABG pO2 ABG PO2/FiO2 Ratio ABG HCO3 ABG O2 Saturation ABG O2 Content ABG Base Excess A-a Gradient Oxyhemoglobin Carboxyhemoglobin Methemoglobin Reduced Hemoglobin Total Hemoglobin O2 Delivery Device O2 Liters/Min Minute Volume Vent Rate Vent Mode FiO2 Tidal Volume PEEP Peak Inspir Pressure Pressure Support Sodium Potassium Chloride Carbon Dioxide Anion Gap BUN Creatinine Estim Creat Clear Calc Estimated GFR Glucose POC Capillary Glucose 107 H Calcium Total Bilirubin AST ALT Alkaline Phosphatase Total Protein Albumin Cryoglobulin Qualit Hepatitis C RNA Quant [id number] HCV RNA (PCR) log10 6.549 HCV RNA PCR Test Info Comment 01/22/25 01/22/25 01/22/25 12:24 12:46 17:15 WBC 8.9 RBC 3.42 L Hgb 9.9 L Hct 31.1 L MCV 90.9 MCH 28.9 MCHC 31.8 L RDW 16.7 H Plt Count 55 L MPV 10.5 H % Immature Plt Fraction 1.7 Puncture Site ABG pH ABG pCO2 ABG pO2 ABG PO2/FiO2 Ratio ABG HCO3 ABG O2 Saturation ABG O2 Content ABG Base Excess A-a Gradient Oxyhemoglobin Carboxyhemoglobin Methemoglobin Reduced Hemoglobin Total Hemoglobin O2 Delivery Device O2 Liters/Min Minute Volume Vent Rate Vent Mode FiO2 Tidal Volume PEEP Peak Inspir Pressure Pressure Support Sodium Potassium Chloride Carbon Dioxide Anion Gap BUN Creatinine Estim Creat Clear Calc Estimated GFR Glucose POC Capillary Glucose 114 H 118 H Calcium Total Bilirubin AST ALT Alkaline Phosphatase Total Protein Albumin Cryoglobulin Qualit Hepatitis C RNA Quant HCV RNA (PCR) log10 HCV RNA PCR Test Info 01/22/25 01/23/25 01/23/25 19:55 00:12 01:58 WBC 8.9 9.1 RBC 3.54 L 3.59 L Hgb 10.2 L 10.3 L Hct 32.3 L 32.6 L MCV 91.2 90.8 MCH 28.8 28.7 MCHC 31.6 L 31.6 L RDW 16.6 H 16.7 H Plt Count 52 L 51 L MPV 10.0 11.4 H % Immature Plt Fraction 2.5 2.5 Puncture Site ABG pH ABG pCO2 ABG pO2 ABG PO2/FiO2 Ratio ABG HCO3 ABG O2 Saturation ABG O2 Content ABG Base Excess A-a Gradient Oxyhemoglobin Carboxyhemoglobin Methemoglobin Reduced Hemoglobin Total Hemoglobin O2 Delivery Device O2 Liters/Min Minute Volume Vent Rate Vent Mode FiO2 Tidal Volume PEEP Peak Inspir Pressure Pressure Support Sodium 144 Potassium 2.9 L Chloride 105 Carbon Dioxide 30 Anion Gap 9 BUN 81 H Creatinine 2.79 H Estim Creat Clear Calc 13 Estimated GFR 17 L Glucose 110 POC Capillary Glucose 109 H Calcium 8.0 L Total Bilirubin 1.6 H AST 25 ALT 33 Alkaline Phosphatase 62 Total Protein 5.0 L Albumin 3.0 L Cryoglobulin Qualit Hepatitis C RNA Quant HCV RNA (PCR) log10 HCV RNA PCR Test Info 01/23/25 01/23/25 04:45 06:06 WBC RBC Hgb Hct MCV MCH MCHC RDW Plt Count MPV % Immature Plt Fraction Puncture Site Right brachial ABG pH 7.420 ABG pCO2 44.8 ABG pO2 51.4 L ABG PO2/FiO2 Ratio 1.71 ABG HCO3 28.4 H ABG O2 Saturation 86.9 L* ABG O2 Content 13.8 L ABG Base Excess 3.4 A-a Gradient 109.9 Oxyhemoglobin 84.3 L* Carboxyhemoglobin 0.9 Methemoglobin 0.2 Reduced Hemoglobin 14.6 H Total Hemoglobin 11.6 L O2 Delivery Device Ventilator O2 Liters/Min Not Reportable Minute Volume Not Reportable Vent Rate 16 Vent Mode Cmv FiO2 30 Tidal Volume 320 PEEP 8 Peak Inspir Pressure Not Reportable Pressure Support Not Reportable Sodium Potassium Chloride Carbon Dioxide Anion Gap BUN Creatinine Estim Creat Clear Calc Estimated GFR Glucose POC Capillary Glucose 132 H Calcium Total Bilirubin AST ALT Alkaline Phosphatase Total Protein Albumin Cryoglobulin Qualit Hepatitis C RNA Quant HCV RNA (PCR) log10 HCV RNA PCR Test Info Quality VTE Prophylaxis VTE prophylaxis: mechanical ordered
[2025-01-23] MEDS: FOLIC ACID 1 MG/0.2 ML INJ IV PUSH (09:31)
[2025-01-23] MEDS: PANTOPRAZOLE SODIUM IV 40 MG VIAL IV PUSH ×2 (09:31→20:36)
[2025-01-23] MEDS: THIAMINE HCL 200 MG/2 ML VIAL 100 MG IV PUSH (09:31)
[2025-01-23] MEDS: MINERAL OIL/WHITE PETROLATUM OINTMENT 1 APPLIC EACH EYE ×2 (09:32→20:36)
[2025-01-23] MEDS: MUPIROCIN 2% OINT 22 GM TUBE 1 APPLIC EACH NARE ×2 (09:32→20:36)
[2025-01-23] MEDS: POTASSIUM BICARBONATE 25 MEQ TABEF FEED TUBE (09:32)
[2025-01-23] MEDS: EPOETIN ALFA-EPBX 10,000 UNITS/ML VIAL 10000 UNITS SUB-Q (09:44)
[2025-01-23 10:19] LABS: Alveolar/Arterial O2 Gradient 86.6 mmHg; Fractional Inspired Oxygen 30 %; HCO3 ABG 26.8 mEq/l (22.0-26.0); Oxygen Content ABG 16.6 %vol (16.0-22.0); Oxygen Saturation ABG 94.8 % (95.0-100.0); PCO2 ABG 45.0 mmHg (35.0-45.0); PO2 ABG 74.4 mmHg (80.0-100.0); PO2 FiO2 Ratio Arterial Blood 2.48 %
[2025-01-23 10:21] LABS: Modified Allen's Test Pass; Site Drawn LEFT RADIAL
[2025-01-23 10:22] LABS: Arterial Blood Gas Pressure Support 5 cmH2O
--- NOTE | 2025-01-23 12:26 | P.PNNP_ITS ---
Progress Note: A&P Assessment and Plan (1) Acute kidney injury: Code(s): N17.9 - Acute kidney failure, unspecified Status: Acute Assessment and Plan: * as noted on admission (creatinine of 3.43mg/dl) * some improvement note by trend of labs * likely due to multiple issues: * prerenal factors (poor nutrition) * anemia/GI bleed * infection/sepsis (+ blood cultures) * respiratory failure * hypoxia * liver disease/cirrhosis * progression of underlying CKD * other(?) * evaluation to date noted: * renal ultrasound with CKD and mild bilateral hydronephrosis - mcqueen cathter placed * urine electrolytes prerenal - suspect due to a combination of poor oral intake AND liver disease/physiology (decreased effective circulating volume) * urine eosinophils negative * CPK low * ~ 2 grams of proteinuria * maintain hemodynamics and H/H as tolerated * noted reasonable urine output with IV diuretic use * follow trend of repeat labs and UOP (2) Stage 4 chronic kidney disease: Code(s): N18.4 - Chronic kidney disease, stage 4 (severe) Status: Chronic Assessment and Plan: * not entirely clear what baseline creatinine really is.... * was noted to be ~ 1.4 - 1.6mg/dl in June 2024 * however, since December 2024, has been running ~ 2.4 - 2.6mg/dl (from record review from [facility]) * most recent labs done on 01/15/25 -- creatinine up to 2.79mg/dl (ER visit at [facility] prior to leaving [place]) (3) Acute upper GI bleeding: Code(s): K92.2 - Gastrointestinal hemorrhage, unspecified Status: Acute Assessment and Plan: * suspected based on admission events/presentation * GI following * s/p EGD (on 01/20): * noted erosive esophagitis but no varices or bleeding lesions noted * PRBC transfusion per protocol * corrected coagulopathy * IV PPI * follow trend on H/H (4) Acute hypoxic respiratory failure: Code(s): J96.01 - Acute respiratory failure with hypoxia Status: Acute Assessment and Plan: * multifactorial: * inability to protect airway * aspiration pneumonia * pleural effusions * suspected upper GI bleed * complicated by underlying COPD * imaging noted - mild pulmonary edema * IV diuretics PRN for fluid overload (follow CXR results) * ventilator weaning as tolerated (5) Sepsis: Code(s): A41.9 - Sepsis, unspecified organism Status: Acute Assessment and Plan: * possibly from pneumonia (aspiration) versus UTI * follow culture data: * blood cultures (from 01/20): Staphylococcus hominis * urine culture - no growth to date * on antibiotics * stable hemodynamics noted * follow repeat cultures (6) Anemia: Code(s): D64.9 - Anemia, unspecified Status: Acute Assessment and Plan: * due to several issues: * due to underlying CKD * iron deficiency * #3 - GI following * liver disease * coagulopathy * other * PRBC transfusion as needed * Epogen while hospitalized * follow trend of H/H (7) Coagulopathy: Code(s): D68.9 - Coagulation defect, unspecified Status: Acute Assessment and Plan: * porbably secondary to liver cirrhosis * complicated by thrombocytopenia also related to liver disease * s/p cryoprecipitate, platelets, and FFP transfusion * follow INR (8) Alcoholic cirrhosis of liver with ascites: Code(s): K70.31 - Alcoholic cirrhosis of liver with ascites Status: Acute Assessment and Plan: * as evidence by admission CT/imaging findings * presumably partly related to alcohol intake * GI following (9) Transaminitis: Code(s): R74.01 - Elevation of levels of liver transaminase levels Status: Acute Assessment and Plan: * noted by admission labs * suspect secondary to/consistent with with alcoholic liver disease. * hepatitis panel noted (10) Acetabular fracture: Qualifiers: Encounter type: initial encounter Fracture alignment: nondisplaced F racture type: closed Laterality: right Sublocation of acetabulum: unspecified portion of acetabulum Qualified Code(s): S32.401A - Unspecified fracture of right acetabulum, initial encounter for closed fracture Code(s): S32.409A - Unspecified fracture of unspecified acetabulum, initial encounter for closed fracture Status: Acute Assessment and Plan: * as noted by admission CT imaging: * fractures of the right anterior acetabulum at the junction of the right superior pubic ramus and of the right inferior pubic ramus, acute to subacute in nature * Orthopedic Surgery consulted * not likely a surgical candidate at this time (11) Distal radial fracture: Qualifiers: Encounter type: subsequent encounter Fracture type: closed Fracture morphology: unspecified fracture morphology Laterality: left Fracture healing: with nonunion Qualified Code(s): S52.502K - Unspecified fracture of the lower end of left radius, subsequent encounter for closed fracture with nonunion Code(s): S52.509A - Unspecified fracture of the lower end of unspecified radius, initial encounter for closed fracture Status: Acute Assessment and Plan: * apparently chronic in nature by X-rays * splint in place * Orthopedic Surgery consulted (12) Alcohol abuse: Code(s): F10.10 - Alcohol abuse, uncomplicated Status: Acute Assessment and Plan: * known history * monitor for withdrawal (although currently sedated) * on IV thiamine and folate Will continue to follow. L Subjective Date/time seen: 01/23/25 12:26 Interval history: Follow-up for acute kidney injury/acute renal failure on chronic kidney disease. Remains intubated/sedated and on mechanical ventilation; renal function/creatinine relatively stable with good urine output in response to IV diuretics; remains hemodynamically stable but febrile today with Tmax of 101.9? when seen; hemoglobin holding steady in the last 24 - 48 hours; positive blood cultures noted. Exam 2 Narrative: General: chronically ill-appearing and cachetic female intubated/sedated and on mechanical ventilation Heart: normal S1 and S2; no rub Lungs: coarse breath sounds; decreased throughout Abdomen: soft, nontender, nondistended, positive bowel sounds Extremities: no cyanosis or clubbing; trace edema Skin: no nodules Objective Data Vital Signs Vital Signs: Vital Signs Temp Pulse Resp BP Pulse Ox O2 Del Method FiO2 01/23/25 12:00 101.9 F H 87 20 141/92 H 94 01/23/25 10:00 86 01/23/25 10:00 86 23 H 01/23/25 10:00 86 23 H 01/23/25 10:00 101.3 F H 85 25 H 148/105 H 92 01/23/25 09:35 105 H 01/23/25 09:29 102 H 93 Mechanical Ventilation 30 01/23/25 08:00 30 01/23/25 08:00 80 01/23/25 08:00 80 16 01/23/25 08:00 80 16 01/23/25 08:00 100.0 F H 81 16 152/107 H 97 01/23/25 08:00 81 98 Mechanical Ventilation 30 01/23/25 06:02 75 17 01/23/25 06:02 75 17 01/23/25 06:00 99.1 F 75 16 160/97 H 97 01/23/25 06:00 75 01/23/25 05:09 72 16 01/23/25 04:48 70 96 Mechanical Ventilation 30 01/23/25 04:00 97.9 F 66 16 141/94 H 93 01/23/25 04:00 30 01/23/25 04:00 30 L 95 Mechanical Ventilation 01/23/25 04:00 64 16 01/23/25 04:00 64 16 01/23/25 04:00 106 H 01/23/25 02:15 60 97 Mechanical Ventilation 30 01/23/25 02:00 56 L 16 01/23/25 02:00 56 L 16 01/23/25 02:00 97.3 F L 56 L 16 137/90 95 01/23/25 02:00 56 L 01/23/25 00:00 97.2 F L 54 L 14 128/81 95 01/23/25 00:00 30 01/23/25 00:00 98 Mechanical Ventilation 30 01/23/25 00:00 53 L 16 01/23/25 00:00 53 L 16 01/23/25 00:00 53 L 01/22/25 23:22 53 L 99 Mechanical Ventilation 30 01/22/25 22:00 96.8 F L 53 L 16 147/93 H 100 01/22/25 22:00 51 L 01/22/25 22:00 51 L 16 01/22/25 22:00 51 L 16 01/22/25 20:20 57 L 100 Mechanical Ventilation 30 01/22/25 20:00 97.1 F L 62 14 150/101 H 100 01/22/25 20:00 100 Mechanical Ventilation 30 01/22/25 20:00 30 01/22/25 20:00 56 L 01/22/25 20:00 59 L 17 01/22/25 20:00 59 L 17 01/22/25 18:00 60 16 01/22/25 18:00 60 16 01/22/25 18:00 60 16 134/85 94 01/22/25 18:00 60 01/22/25 16:55 56 L 95 Mechanical Ventilation 30 01/22/25 16:00 95 Mechanical Ventilation 30 01/22/25 16:00 98.1 F 62 16 131/86 94 01/22/25 16:00 30 01/22/25 16:00 61 01/22/25 16:00 62 16 01/22/25 16:00 62 16 Intake/Output Intake/Output: Intake & Output 01/20/25 01/21/25 01/22/25 01/23/25 23:59 23:59 23:59 23:59 Intake Total 4025.8 2602 1028 756.2 Output Total 1330 1300 3175 1900 Balance 2695.8 1302 -2147 -1143.8 Meds/Results Medications: Active Medications Generic Name Dose Route Start Last Admin Trade Name Freq PRN Reason Stop Dose Admin Acetaminophen 650 mg 01/23/25 14:11 01/23/25 14:27 Acetaminophen 325 Mg Tablet FEED TUBE 650 mg Q4H PRN Administration Fever 1-3 Dextrose 12.5 gm 01/20/25 08:23 Dextrose 50% 25 Gm/50 Ml Syringe IV PUSH PRN PRN Hypoglycemia Protocol Epoetin Emil-epbx 10,000 units 01/23/25 09:00 01/23/25 09:44 Epoetin Emil-Epbx 10,000 Units/Ml Vial SUB-Q 10,000 units TUTHSA@09 MEENA Administration Folic Acid 1 mg 01/20/25 09:00 01/23/25 09:31 Folic Acid 1 Mg/0.2 Ml Inj IV PUSH 1 mg QAM MEENA Administration Glucagon 1 mg 01/20/25 08:23 Glucagon For Inj 1 Mg Vial IM PRN PRN Hypoglycemia Protocol Glucose 15 gm 01/20/25 08:23 Glucose Oral Gel 15 Gm Of Glucse In 37.5 Gm Tube PO PRN PRN Hypoglycemia Protocol Dextrose 1,000 mls @ 100 mls/hr 01/20/25 08:23 Dextrose 5% 1,000 Ml IVPB PRN PRN Hypoglycemia Protocol Piperacillin Sod/Tazobactam 50 mls @ 100 mls/hr 01/21/25 08:00 01/23/25 10:00 Sod 2.25 gm/ Sodium Chloride IVPB Infused Q8H MEEAN Infusion Vancomycin HCl 500 mg in 100 mls @ 100 mls/hr 01/24/25 01:00 Vancomycin 500 Mg/Ns 100 Ml IVPB 01/24/25 01:59 ONCE ONE Insulin Aspart 3 - 6 units 01/20/25 12:00 01/23/25 12:03 Insulin Aspart (*Bkc) 100 Units/Ml SUB-Q Not Given Q6HR [facility] Protocol Labetalol HCl 20 mg 01/23/25 09:31 01/23/25 14:23 Labetalol Hcl Inj 100 Mg/20 Ml Vial IV PUSH 20 mg Q4H PRN Administration SBP > 160 and HR> 60 -1st choice Multi-Ingred Cream/Lotion/Oil/Oint 1 applic 01/22/25 21:00 01/23/25 09:32 Mineral Oil/White Petrolatum Ointment EACH EYE 1 applic Q12HR MEENA Administration Mupirocin 1 applic 01/20/25 09:00 01/23/25 09:32 Mupirocin 2% Oint 22 Gm Tube EACH NARE 01/24/25 21:01 1 applic Q12HR MEENA Administration Pantoprazole Sodium 40 mg 01/21/25 09:00 01/23/25 09:31 Pantoprazole Sodium Iv 40 Mg Vial IV PUSH 40 mg Q12HR MEENA Administration Sodium Chloride 10 ml 01/20/25 06:00 01/23/25 14:23 Central Line Flush IV PUSH 10 ml Q8HR MEENA Administration Sodium Chloride 20 ml 01/20/25 01:15 Central Line Flush IV PUSH PRN PRN after blood draws Thiamine HCl 100 mg 01/20/25 09:00 01/23/25 09:31 Thiamine Hcl 200 Mg/2 Ml Vial IV PUSH 100 mg QAM MEENA Administration Radiology Results: ITS Impressions Abdomen X-Ray 01/20/25 05:42 Impression: NG tube in satisfactory position. Small left pleural effusion. Chest/Abdomen/Pelvis CT 01/20/25 05:48 Impression: Moderate to large left pleural effusion with extensive left lower lobe atelectasis. Small right pleural effusion. 9 mm spiculated nodule in the right lower lobe, as detailed above, indeterminate. CT scan in 3 months advised. Consider PET/CT or attempted tissue sampling as indicated. Moderate emphysema. No definite evidence for GI bleed, but evaluation is limited without IV contrast and with oral contrast on board. Consider follow-up CT angiogram of the bowel to further evaluate for GI bleed, as indicated. Moderate abdominopelvic ascites. T12 compression fracture, somewhat age indeterminate, but new since 06/20/2024. Fractures of the right anterior acetabulum at the junction of the right superior pubic ramus and of the right inferior pubic ramus, acute to subacute in nature. Head CT 01/20/25 06:13 Impression: No intracranial hemorrhage, mass, or acute infarct. Atrophy and chronic white matter changes, as above. Wrist X-Ray 01/20/25 06:13 Impression: Probable chronic fracture deformities of the distal radius and ulnar styloid process, as detailed above. No definite acute fracture. Renal Ultrasound 01/21/25 08:42 IMPRESSION: 1. Medical renal disease. 2. Mild bilateral hydronephrosis. No nephrolithiasis. Chest X-Ray 01/23/25 08:11 Impression: 1: Borderline heart size with pulmonary edema. No significant change. Labs Labs: Laboratory Tests 01/23/25 01:58 01/23/25 01:58 Calcium 8.0 L Total Bilirubin 1.6 H AST 25 ALT 33 Alkaline Phosphatase 62 Total Protein 5.0 L Albumin 3.0 L Microbiology 01/20/25 02:49 Blood Blood Culture - Final Staphylococcus hominis 01/20/25 02:49 Blood Blood Culture - Preliminary Staphylococcus hominis
[2025-01-23] MEDS: ACETAMINOPHEN 325 MG TABLET 650 MG FEED TUBE ×2 (14:27→18:43)
--- NOTE | 2025-01-23 14:46 | PM.IMPN ---
Progress Note: A&P Assessment and Plan (1) Acute upper GI bleeding: Code(s): K92.2 - Gastrointestinal hemorrhage, unspecified Status: Acute Assessment and Plan: Acute upper GI bleed 01/20 EGD showed reflux esophagitis and hiatal hernia Status post transfusion of multiple units of PRBC Coagulopathy cryo FFP Hemoglobin appears to be now stable I will continue monitoring hemoglobin and transfuse additional PRBC if needed continue IV PPI. Octreotide was discontinued GI following (2) Transaminitis: Code(s): R74.01 - Elevation of levels of liver transaminase levels Status: Acute Assessment and Plan: AST and ALT mildly elevated likely consistent with alcoholic liver disease. Hepatitis C antibody screen is positive. RNA quantitative is pending (3) Alcoholic cirrhosis of liver with ascites: Code(s): K70.31 - Alcoholic cirrhosis of liver with ascites Status: Acute Assessment and Plan: Patient has cirrhosis from alcohol liver disease with CT scan showing ascites (4) Acute kidney injury superimposed on stage 4 chronic kidney disease: Code(s): N17.9 - Acute kidney failure, unspecified; N18.4 - Chronic kidney disease, stage 4 (severe) Status: Acute Assessment and Plan: Baseline creatinine in mid 2 Patient was given IV fluids but now off due to concern of volume overload and patient has also received significant amount of blood products. Creatinine improved to 2.79 Monitor urine output electrolytes and creatinine CT scans not show any obstruction or stone Renal ultrasound showed mild bilateral hydronephrosis without any stones Nephrology consulted and following. Patient may need renal replacement therapy if renal function deteriorates Continue diuretics for volume overload. She has had good urine output in response to Lasix Replace potassium (5) Acute hypoxic respiratory failure: Code(s): J96.01 - Acute respiratory failure with hypoxia Status: Acute Assessment and Plan: Acute respiratory failure secondary to aspiration pneumonia pleural effusion upper GI bleed with underlying COPD Ventilator settings reviewed patient is on CMV Currently at a rate of 16, PEEP to 8, FiO2 is at 30-40% Chest x-ray reviewed and patient will need additional diuresis and weaning down of PEEP of before weaning trial Imaging reviewed suggest mild pulmonary edema or volume overload. ARDS and pneumonia also possibility Continue diuretics as tolerated Continue VT bronchodilator I will to sedation holiday and evaluate for weaning trial (6) Coagulopathy: Code(s): D68.9 - Coagulation defect, unspecified Status: Acute Assessment and Plan: Coagulopathy secondary to cirrhosis and sepsis Patient received cryo and platelets. She is also received 2 units of FFP (7) Sepsis: Code(s): A41.9 - Sepsis, unspecified organism Status: Acute Assessment and Plan: Sepsis likely secondary to pneumonia which could be aspiration Blood cultures and showing GPC on GS On IV Zosyn And vancomycin identification is pending UA and micro also suggestive UTI. Urine cultures pending (8) Anemia: Code(s): D64.9 - Anemia, unspecified Status: Acute Assessment and Plan: Likely multifactorial anemia from iron deficiency and anemia of chronic kidney disease along with acute blood loss Patient received a dose of iron And she has received for units of PRBC. Hemoglobin appears to have stabilized Monitor and transfuse additional if needed Management of GI bleeding as above Neupogen per Nephrology (9) Thrombocytopenia: Code(s): D69.6 - Thrombocytopenia, unspecified Status: Acute Assessment and Plan: Thrombocytopenia likely combination of sepsis and cirrhosis. 01/20 Platelet transfusion Will repeat CBC later this afternoon hold any anticoagulation (10) Alcohol abuse: Code(s): F10.10 - Alcohol abuse, uncomplicated Status: Acute Assessment and Plan: History of alcohol abuse. At this time patient is sedated with Versed and fentanyl. Continue thiamine and folic acid (11) Severe protein-calorie malnutrition: Code(s): E43 - Unspecified severe protein-calorie malnutrition Status: Acute Assessment and Plan: Appears well nourished and cachectic. Patient was NPO due to GI bleed. Now on tube feeds. (12) Acetabular fracture: Qualifiers: Encounter type: initial encounter Fracture alignment: nondisplaced Fracture type: closed Laterality: right Sublocation of acetabulum: unspecified portion of acetabulum Qualified Code(s): S32.401A - Unspecified fracture of right acetabulum, initial encounter for closed fracture Code(s): S32.409A - Unspecified fracture of unspecified acetabulum, initial encounter for closed fracture Status: Acute Assessment and Plan: Orthopedics consulted. Obtain records from [facility] (13) Distal radial fracture: Qualifiers: Encounter type: subsequent encounter Fracture type: closed Fracture morphology: unspecified fracture morphology Laterality: left Fracture healing: with nonunion Qualified Code(s): S52.502K - Unspecified fracture of the lower end of left radius, subsequent encounter for closed fracture with nonunion Code(s): S52.509A - Unspecified fracture of the lower end of unspecified radius, initial encounter for closed fracture Status: Acute Assessment and Plan: Currently in splint. Orthopedics consulted Subjective Date/time seen: 01/23/25 14:46 Interval history: Patient was intubated and management as per ICU Review of Systems Review of Systems: ROS unobtainable: Yes unobtainable due to endotracheal tube, unobtainable due to medical condition and unobtainable due to mental status Exam Narrative: General: Pt is cachectic old female who looks much older than her age. She is Sedated, intubated and on mechanical ventilation Lungs/Chest: Trachea central Coarse BS B/L, No crackles or wheezing. Overall decreased air movement throughout lungs with barrel chest Cardiac: RRR. Normal S1 S2. No murmurs Circulation: Pedal pulses are intact and symmetrical. Abdomen: Decreased bowel sounds.. Soft. NT. ND. Extremities: No clubbing, cyanosis or edema. Feet are cold : Mclean in place Neurologic: Unable to assess due to sedation. She tries to open her eyes on on calling her name but does not follow commands. She does move all extremities to painful stimuli. PERRL Skin: Petechia on the chest Objective Data Vital Signs Vital Signs: Vital Signs - 24 hr 01/22/25 16:00 01/22/25 16:00 01/22/25 16:00 Temperature Pulse Rate 62 62 61 Respiratory Rate 16 16 Blood Pressure Pulse Oximetry Oxygen Delivery Fraction of Inspired Oxygen 01/22/25 16:00 01/22/25 16:00 01/22/25 16:00 Temperature 98.1 F Pulse Rate 62 Respiratory Rate 16 Blood Pressure 131/86 Pulse Oximetry 94 95 Oxygen Delivery Mechanical Ventilation Fraction of Inspired Oxygen 30 30 01/22/25 16:55 01/22/25 18:00 01/22/25 18:00 Temperature Pulse Rate 56 L 60 60 Respiratory Rate 16 Blood Pressure 134/85 Pulse Oximetry 95 94 Oxygen Delivery Mechanical Ventilation Fraction of Inspired Oxygen 30 01/22/25 18:00 01/22/25 18:00 01/22/25 20:00 Temperature Pulse Rate 60 60 59 L Respiratory Rate 16 16 17 Blood Pressure Pulse Oximetry Oxygen Delivery Fraction of Inspired Oxygen 01/22/25 20:00 01/22/25 20:00 01/22/25 20:00 Temperature Pulse Rate 59 L 56 L Respiratory Rate 17 Blood Pressure Pulse Oximetry Oxygen Delivery Fraction of Inspired Oxygen 30 01/22/25 20:00 01/22/25 20:00 01/22/25 20:20 Temperature 97.1 F L Pulse Rate 62 57 L Respiratory Rate 14 Blood Pressure 150/101 H Pulse Oximetry 100 100 100 Oxygen Delivery Mechanical Ventilation Mechanical Ventilation Fraction of Inspired Oxygen 30 30 01/22/25 22:00 01/22/25 22:00 01/22/25 22:00 Temperature Pulse Rate 51 L 51 L 51 L Respiratory Rate 16 16 Blood Pressure Pulse Oximetry Oxygen Delivery Fraction of Inspired Oxygen 01/22/25 22:00 01/22/25 23:22 01/23/25 00:00 Temperature 96.8 F L Pulse Rate 53 L 53 L 53 L Respiratory Rate 16 Blood Pressure 147/93 H Pulse Oximetry 100 99 Oxygen Delivery Mechanical Ventilation Fraction of Inspired Oxygen 30 01/23/25 00:00 01/23/25 00:00 01/23/25 00:00 Temperature Pulse Rate 53 L 53 L Respiratory Rate 16 16 Blood Pressure Pulse Oximetry 98 Oxygen Delivery Mechanical Ventilation Fraction of Inspired Oxygen 30 01/23/25 00:00 01/23/25 00:00 01/23/25 02:00 Temperature 97.2 F L Pulse Rate 54 L 56 L Respiratory Rate 14 Blood Pressure 128/81 Pulse Oximetry 95 Oxygen Delivery Fraction of Inspired Oxygen 30 01/23/25 02:00 01/23/25 02:00 01/23/25 02:00 Temperature 97.3 F L Pulse Rate 56 L 56 L 56 L Respiratory Rate 16 16 16 Blood Pressure 137/90 Pulse Oximetry 95 Oxygen Delivery Fraction of Inspired Oxygen 01/23/25 02:15 01/23/25 04:00 01/23/25 04:00 Temperature Pulse Rate 60 106 H 64 Respiratory Rate 16 Blood Pressure Pulse Oximetry 97 Oxygen Delivery Mechanical Ventilation Fraction of Inspired Oxygen 30 01/23/25 04:00 01/23/25 04:00 01/23/25 04:00 Temperature Pulse Rate 64 30 L Respiratory Rate 16 Blood Pressure Pulse Oximetry 95 Oxygen Delivery Mechanical Ventilation Fraction of Inspired Oxygen 30 01/23/25 04:00 01/23/25 04:48 01/23/25 05:09 Temperature 97.9 F Pulse Rate 66 70 72 Respiratory Rate 16 16 Blood Pressure 141/94 H Pulse Oximetry 93 96 Oxygen Delivery Mechanical Ventilation Fraction of Inspired Oxygen 30 01/23/25 06:00 01/23/25 06:00 01/23/25 06:02 Temperature 99.1 F Pulse Rate 75 75 75 Respiratory Rate 16 17 Blood Pressure 160/97 H Pulse Oximetry 97 Oxygen Delivery Fraction of Inspired Oxygen 01/23/25 06:02 01/23/25 08:00 01/23/25 08:00 Temperature 100.0 F H Pulse Rate 75 81 81 Respiratory Rate 17 16 Blood Pressure 152/107 H Pulse Oximetry 98 97 Oxygen Delivery Mechanical Ventilation Fraction of Inspired Oxygen 30 01/23/25 08:00 01/23/25 08:00 01/23/25 08:00 Temperature Pulse Rate 80 80 80 Respiratory Rate 16 16 Blood Pressure Pulse Oximetry Oxygen Delivery Fraction of Inspired Oxygen 01/23/25 08:00 01/23/25 09:29 01/23/25 09:35 Temperature Pulse Rate 102 H 105 H Respiratory Rate Blood Pressure Pulse Oximetry 93 Oxygen Delivery Mechanical Ventilation Fraction of Inspired Oxygen 30 30 01/23/25 10:00 01/23/25 10:00 01/23/25 10:00 Temperature 101.3 F H Pulse Rate 85 86 86 Respiratory Rate 25 H 23 H 23 H Blood Pressure 148/105 H Pulse Oximetry 92 Oxygen Delivery Fraction of Inspired Oxygen 01/23/25 10:00 01/23/25 12:00 01/23/25 12:00 Temperature 101.9 F H Pulse Rate 86 87 86 Respiratory Rate 20 16 Blood Pressure 141/92 H Pulse Oximetry 94 Oxygen Delivery Fraction of Inspired Oxygen 01/23/25 12:00 01/23/25 12:00 01/23/25 12:00 Temperature Pulse Rate 86 86 Respiratory Rate 16 Blood Pressure Pulse Oximetry Oxygen Delivery Fraction of Inspired Oxygen 30 01/23/25 14:23 01/23/25 14:27 01/23/25 14:28 Temperature 102.5 F H Pulse Rate 90 90 Respiratory Rate Blood Pressure Pulse Oximetry 93 Oxygen Delivery Mechanical Ventilation Fraction of Inspired Oxygen 30 Intake/Output Intake/Output: Intake & Output 01/20/25 01/21/25 01/22/25 01/23/25 23:59 23:59 23:59 23:59 Intake Total 4025.8 2602 1028 756.2 Output Total 1330 1300 3175 1900 Balance 2695.8 1302 -2147 -1143.8 Meds/Results Medications: Active Medications Generic Name Dose Route Start Last Admin Trade Name Freq PRN Reason Stop Dose Admin Acetaminophen 650 mg 01/23/25 14:11 01/23/25 14:27 Acetaminophen 325 Mg Tablet FEED TUBE 650 mg Q4H PRN Administration Fever 1-3 Dextrose 12.5 gm 01/20/25 08:23 Dextrose 50% 25 Gm/50 Ml Syringe IV PUSH PRN PRN Hypoglycemia Protocol Epoetin Emil-epbx 10,000 units 01/23/25 09:00 01/23/25 09:44 Epoetin Emil-Epbx 10,000 Units/Ml Vial SUB-Q 10,000 units TUTHSA@09 MEENA Administration Folic Acid 1 mg 01/20/25 09:00 01/23/25 09:31 Folic Acid 1 Mg/0.2 Ml Inj IV PUSH 1 mg QAM MEENA Administration Glucagon 1 mg 01/20/25 08:23 Glucagon For Inj 1 Mg Vial IM PRN PRN Hypoglycemia Protocol Glucose 15 gm 01/20/25 08:23 Glucose Oral Gel 15 Gm Of Glucse In 37.5 Gm Tube PO PRN PRN Hypoglycemia Protocol Dextrose 1,000 mls @ 100 mls/hr 01/20/25 08:23 Dextrose 5% 1,000 Ml IVPB PRN PRN Hypoglycemia Protocol Piperacillin Sod/Tazobactam 50 mls @ 100 mls/hr 01/21/25 08:00 01/23/25 10:00 Sod 2.25 gm/ Sodium Chloride IVPB Infused Q8H MEENA Infusion Vancomycin HCl 500 mg in 100 mls @ 100 mls/hr 01/24/25 01:00 Vancomycin 500 Mg/Ns 100 Ml IVPB 01/24/25 01:59 ONCE ONE Insulin Aspart 3 - 6 units 01/20/25 12:00 01/23/25 12:03 Insulin Aspart (*Bkc) 100 Units/Ml SUB-Q Not Given Q6HR [facility] Protocol Labetalol HCl 20 mg 01/23/25 09:31 01/23/25 14:23 Labetalol Hcl Inj 100 Mg/20 Ml Vial IV PUSH 20 mg Q4H PRN Administration SBP > 160 and HR> 60 -1st choice Multi-Ingred Cream/Lotion/Oil/Oint 1 applic 01/22/25 21:00 01/23/25 09:32 Mineral Oil/White Petrolatum Ointment EACH EYE 1 applic Q12HR MEENA Administration Mupirocin 1 applic 01/20/25 09:00 01/23/25 09:32 Mupirocin 2% Oint 22 Gm Tube EACH NARE 01/24/25 21:01 1 applic Q12HR MEENA Administration Pantoprazole Sodium 40 mg 01/21/25 09:00 01/23/25 09:31 Pantoprazole Sodium Iv 40 Mg Vial IV PUSH 40 mg Q12HR MEENA Administration Sodium Chloride 10 ml 01/20/25 06:00 01/23/25 14:23 Central Line Flush IV PUSH 10 ml Q8HR MEENA Administration Sodium Chloride 20 ml 01/20/25 01:15 Central Line Flush IV PUSH PRN PRN after blood draws Thiamine HCl 100 mg 01/20/25 09:00 01/23/25 09:31 Thiamine Hcl 200 Mg/2 Ml Vial IV PUSH 100 mg QAM MEENA Administration Radiology Results: ITS Impressions Abdomen X-Ray 01/20/25 05:42 Impression: NG tube in satisfactory position. Small left pleural effusion. Chest/Abdomen/Pelvis CT 01/20/25 05:48 Impression: Moderate to large left pleural effusion with extensive left lower lobe atelectasis. Small right pleural effusion. 9 mm spiculated nodule in the right lower lobe, as detailed above, indeterminate. CT scan in 3 months advised. Consider PET/CT or attempted tissue sampling as indicated. Moderate emphysema. No definite evidence for GI bleed, but evaluation is limited without IV contrast and with oral contrast on board. Consider follow-up CT angiogram of the bowel to further evaluate for GI bleed, as indicated. Moderate abdominopelvic ascites. T12 compression fracture, somewhat age indeterminate, but new since 06/20/2024. Fractures of the right anterior acetabulum at the junction of the right superior pubic ramus and of the right inferior pubic ramus, acute to subacute in nature. Head CT 01/20/25 06:13 Impression: No intracranial hemorrhage, mass, or acute infarct. Atrophy and chronic white matter changes, as above. Wrist X-Ray 01/20/25 06:13 Impression: Probable chronic fracture deformities of the distal radius and ulnar styloid process, as detailed above. No definite acute fracture. Renal Ultrasound 01/21/25 08:42 IMPRESSION: 1. Medical renal disease. 2. Mild bilateral hydronephrosis. No nephrolithiasis. Chest X-Ray 01/23/25 08:11 Impression: 1: Borderline heart size with pulmonary edema. No significant change. Labs Labs: Laboratory Results - last 24 hr 01/20/25 01/22/25 01/22/25 05:17 17:15 19:55 WBC 8.9 RBC 3.54 L Hgb 10.2 L Hct 32.3 L MCV 91.2 MCH 28.8 MCHC 31.6 L RDW 16.6 H Plt Count 52 L MPV 10.0 % Immature Plt Fraction 2.5 Puncture Site ABG pH ABG pCO2 ABG pO2 ABG PO2/FiO2 Ratio ABG HCO3 ABG O2 Saturation ABG O2 Content ABG Base Excess A-a Gradient Oxyhemoglobin Carboxyhemoglobin Methemoglobin Reduced Hemoglobin Total Hemoglobin O2 Delivery Device O2 Liters/Min Minute Volume Vent Rate Vent Mode FiO2 Tidal Volume PEEP Peak Inspir Pressure Pressure Support Sodium Potassium Chloride Carbon Dioxide Anion Gap BUN Creatinine Estim Creat Clear Calc Estimated GFR Glucose POC Capillary Glucose 118 H Calcium Total Bilirubin AST ALT Alkaline Phosphatase Total Protein Albumin Random Vancomycin Hepatitis C RNA Quant [id number] HCV RNA (PCR) log10 6.549 HCV RNA PCR Test Info Comment 01/23/25 01/23/25 01/23/25 00:12 01:58 04:45 WBC 9.1 RBC 3.59 L Hgb 10.3 L Hct 32.6 L MCV 90.8 MCH 28.7 MCHC 31.6 L RDW 16.7 H Plt Count 51 L MPV 11.4 H % Immature Plt Fraction 2.5 Puncture Site Right brachial ABG pH 7.420 ABG pCO2 44.8 ABG pO2 51.4 L ABG PO2/FiO2 Ratio 1.71 ABG HCO3 28.4 H ABG O2 Saturation 86.9 L* ABG O2 Content 13.8 L ABG Base Excess 3.4 A-a Gradient 109.9 Oxyhemoglobin 84.3 L* Carboxyhemoglobin 0.9 Methemoglobin 0.2 Reduced Hemoglobin 14.6 H Total Hemoglobin 11.6 L O2 Delivery Device Ventilator O2 Liters/Min Not Reportable Minute Volume Not Reportable Vent Rate 16 Vent Mode Cmv FiO2 30 Tidal Volume 320 PEEP 8 Peak Inspir Pressure Not Reportable Pressure Support Not Reportable Sodium 144 Potassium 2.9 L Chloride 105 Carbon Dioxide 30 Anion Gap 9 BUN 81 H Creatinine 2.79 H Estim Creat Clear Calc 13 Estimated GFR 17 L Glucose 110 POC Capillary Glucose 109 H Calcium 8.0 L Total Bilirubin 1.6 H AST 25 ALT 33 Alkaline Phosphatase 62 Total Protein 5.0 L Albumin 3.0 L Random Vancomycin Hepatitis C RNA Quant HCV RNA (PCR) log10 HCV RNA PCR Test Info 01/23/25 01/23/25 01/23/25 06:06 10:09 11:13 WBC RBC Hgb Hct MCV MCH MCHC RDW Plt Count MPV % Immature Plt Fraction Puncture Site Left radial ABG pH 7.392 ABG pCO2 45.0 ABG pO2 74.4 L ABG PO2/FiO2 Ratio 2.48 ABG HCO3 26.8 H ABG O2 Saturation 94.8 L ABG O2 Content 16.6 ABG Base Excess 1.4 A-a Gradient 86.6 Oxyhemoglobin 93.4 Carboxyhemoglobin Methemoglobin Reduced Hemoglobin Total Hemoglobin 12.6 O2 Delivery Device Ventilator O2 Liters/Min Not Reportable Minute Volume Not Reportable Vent Rate Not Reportable Vent Mode Spontaneous FiO2 30 Tidal Volume Not Reportable PEEP 8 Peak Inspir Pressure Not Reportable Pressure Support 5 Sodium Potassium Chloride Carbon Dioxide Anion Gap BUN Creatinine Estim Creat Clear Calc Estimated GFR Glucose POC Capillary Glucose 132 H Calcium Total Bilirubin AST ALT Alkaline Phosphatase Total Protein Albumin Random Vancomycin 18.9 Hepatitis C RNA Quant HCV RNA (PCR) log10 HCV RNA PCR Test Info 01/23/25 11:17 WBC RBC Hgb Hct MCV MCH MCHC RDW Plt Count MPV % Immature Plt Fraction Puncture Site ABG pH ABG pCO2 ABG pO2 ABG PO2/FiO2 Ratio ABG HCO3 ABG O2 Saturation ABG O2 Content ABG Base Excess A-a Gradient Oxyhemoglobin Carboxyhemoglobin Methemoglobin Reduced Hemoglobin Total Hemoglobin O2 Delivery Device O2 Liters/Min Minute Volume Vent Rate Vent Mode FiO2 Tidal Volume PEEP Peak Inspir Pressure Pressure Support Sodium Potassium Chloride Carbon Dioxide Anion Gap BUN Creatinine Estim Creat Clear Calc Estimated GFR Glucose POC Capillary Glucose 151 H Calcium Total Bilirubin AST ALT Alkaline Phosphatase Total Protein Albumin Random Vancomycin Hepatitis C RNA Quant HCV RNA (PCR) log10 HCV RNA PCR Test Info Quality VTE Prophylaxis VTE prophylaxis: mechanical ordered Hospitalist MIPS Advance Care Plan I have confirmed that the patient's Advanced Care Plan is present, code status is documented, or surrogate decision maker is listed in patient medical record.: Yes Medication Reconciliation I have utilized all available resources to obtain, update and review the patients current medications (includes all prescriptions, OTC, herbals, cannabis, and nutritional supplements).: Yes
[2025-01-24] VITALS (37 sets, daily range): BP systolic 118–172; BP diastolic 81–107; PULSE 64–82; RESP 14–40; TEMP 36–37.7; O2SAT 92–100
[2025-01-24] MEDS: VANCOMYCIN 500 MG/NS 100 ML 500 MG/100 ML BAG 100 MG IVPB (00:31)
--- NOTE | 2025-01-24 03:37 | PC.NURSE ---
Called Dr Beltran per elevated blood pressures despite administration of PRN labetalol. One time 10mg amlodipine per OG and hydralazine 20mg IVP q4 PRN for SBP >160.
[2025-01-24] MEDS: CENTRAL LINE FLUSH 20 ML IV PUSH (04:56)
[2025-01-24] MEDS: CENTRAL LINE FLUSH 10 ML IV PUSH ×3 (04:56→22:16)
[2025-01-24 05:09] LABS: Hematocrit 33.0 % (37.0-47.0); Hemoglobin 10.2 g/dL (12.0-15.0); Immature Platelet Fraction Pct 3.3 % (0.9-11.2); Mean Corpuscular HGB Conc 30.9 g/dl (32-36); Mean Corpuscular Hemoglobin 29.2 pg (26-34); Mean Corpuscular Volume 94.6 fl (80-100); Platelet Count Result 39 k/mm3 (150-375); Red Blood Count 3.49 M/mm3 (4.2-5.4); White Blood Count 9.6 K/mm3 (4.5-10.0)
[2025-01-24 05:14] LABS: Alveolar/Arterial O2 Gradient 97.7 mmHg; Carboxyhemoglobin 0.9 % THb (0-2.0); Fractional Inspired Oxygen 30 %; HCO3 ABG 27.3 mEq/l (22.0-26.0); Methemoglobin ABG 0.1 %THb (0-1.5); Oxygen Content ABG 15.6 %vol (16.0-22.0); Oxygen Saturation ABG 96.6 % (95.0-100.0); PCO2 ABG 33.9 mmHg (35.0-45.0); PO2 ABG 76.4 mmHg (80.0-100.0); PO2 FiO2 Ratio Arterial Blood 2.55 %; Reduced Hemoglobin 3.7 %THb (0-5.0)
[2025-01-24 05:18] LABS: Modified Allen's Test Pass; Site Drawn RIGHT RADIAL
[2025-01-24 05:19] LABS: Arterial Blood Gas Tidal Volume 320 ml; Arterial Blood Gas Ventilator rate 16 /MIN
[2025-01-24 05:30] LABS: Alanine Aminotransferase 32 U/L (6-35); Albumin Level 3.0 g/dL (3.5-5.1); Alkaline Phosphatase 63 U/L (38-126); Anion Gap 10 mmol/L (4-12); Aspartate Amino Transferase 26 U/L (14-36); Bilirubin,Total 1.2 mg/dL (0.2-1.3); Blood Urea Nitrogen 84 mg/dL (7-17); Calcium 7.9 mg/dL (8.4-10.2); Carbon Dioxide 29 mmol/L (22-30); Chloride 104 mmol/L (98-107); Estimated CRCL calculation 16 ml/min; Estimated Glomerular Filt Rate 21; Glucose 127 mg/dL (65-110); Magnesium 1.4 mg/dL (1.6-2.3); Potassium 3.5 mmol/L (3.4-5.0); Sodium 143 mmol/L (137-145); Total Protein 4.9 g/dL (6.3-8.2)
--- NOTE | 2025-01-24 07:43 | WPDINTPN ---
Progress Note: A&P Assessment and Plan (1) Acute upper GI bleeding: Code(s): K92.2 - Gastrointestinal hemorrhage, unspecified Status: Acute Assessment and Plan: Acute upper GI bleed 01/20 EGD showed reflux esophagitis and hiatal hernia Status post transfusion of multiple units of PRBC Coagulopathy cryo FFP Hemoglobin appears to be now stable. I will continue monitoring hemoglobin and transfuse additional PRBC if needed continue IV PPI. Octreotide was discontinued GI following (2) Transaminitis: Code(s): R74.01 - Elevation of levels of liver transaminase levels Status: Acute Assessment and Plan: AST and ALT mildly elevated likely consistent with alcoholic liver disease. Hepatitis C antibody screen is positive. RNA quantitative is [id number] (3) Alcoholic cirrhosis of liver with ascites: Code(s): K70.31 - Alcoholic cirrhosis of liver with ascites Status: Acute Assessment and Plan: Patient has cirrhosis from alcohol liver disease with CT scan showing ascites (4) Acute kidney injury superimposed on stage 4 chronic kidney disease: Code(s): N17.9 - Acute kidney failure, unspecified; N18.4 - Chronic kidney disease, stage 4 (severe) Status: Acute Assessment and Plan: Baseline creatinine in mid 2 Patient was given IV fluids but now off due to concern of volume overload and patient has also received significant amount of blood products. Creatinine improved to 2.40 Monitor urine output electrolytes and creatinine CT scans not show any obstruction or stone Renal ultrasound showed mild bilateral hydronephrosis without any stones Nephrology consulted and following. Patient may need renal replacement therapy if renal function deteriorates Continue diuretics for volume overload. She has had good urine output in response to Lasix Replace potassium (5) Acute hypoxic respiratory failure: Code(s): J96.01 - Acute respiratory failure with hypoxia Status: Acute Assessment and Plan: Acute respiratory failure secondary to aspiration pneumonia pleural effusion upper GI bleed with underlying COPD Ventilator settings reviewed patient is on CMV Currently at a rate of 16, PEEP to 8, FiO2 is at 35 % Chest x-ray reviewed and patient will need additional diuresis and weaning down of PEEP of before weaning trial Imaging reviewed suggest mild pulmonary edema or volume overload. ARDS and pneumonia also possibility patient was given diuretics with good urine output Continue MS bronchodilator 01/23 SBT was done and patient had at could RSBI and ABG but patient was not awake enough. Patient is not extubated due to concern of inability to protect airway once extubated. 01/24 patient placed on PSV SBT. Will evaluate for extubation if patient does well (6) Coagulopathy: Code(s): D68.9 - Coagulation defect, unspecified Status: Acute Assessment and Plan: Coagulopathy secondary to cirrhosis and sepsis Patient received cryo and platelets. She is also received 2 units of FFP (7) Sepsis: Code(s): A41.9 - Sepsis, unspecified organism Status: Acute Assessment and Plan: Sepsis likely secondary to pneumonia which could be aspiration Blood cultures grew Staph hominis which is likely contaminant. Will discontinue vancomycin On IV Zosyn UA and micro also suggestive UTI. Urine cultures pending (8) Anemia: Code(s): D64.9 - Anemia, unspecified Status: Acute Assessment and Plan: Likely multifactorial anemia from iron deficiency and anemia of chronic kidney disease along with acute blood loss Patient received a dose of iron And she has received for units of PRBC. Hemoglobin appears to have stabilized Monitor and transfuse additional if needed Management of GI bleeding as above Neupogen per Nephrology (9) Thrombocytopenia: Code(s): D69.6 - Thrombocytopenia, unspecified Status: Acute Assessment and Plan: Thrombocytopenia likely combination of sepsis and cirrhosis. 01/20 Platelet transfusion Will repeat CBC later this afternoon hold any anticoagulation (10) Alcohol abuse: Code(s): F10.10 - Alcohol abuse, uncomplicated Status: Acute Assessment and Plan: History of alcohol abuse. At this time patient is sedated with Versed and fentanyl. Continue thiamine and folic acid (11) Severe protein-calorie malnutrition: Code(s): E43 - Unspecified severe protein-calorie malnutrition Status: Acute Assessment and Plan: Appears well nourished and cachectic. Patient was NPO due to GI bleed. Now on tube feeds. (12) Acetabular fracture: Qualifiers: Encounter type: initial encounter Fracture alignment: nondisplaced Fracture type: closed Laterality: right Sublocation of acetabulum: unspecified portion of acetabulum Qualified Code(s): S32.401A - Unspecified fracture of right acetabulum, initial encounter for closed fracture Code(s): S32.409A - Unspecified fracture of unspecified acetabulum, initial encounter for closed fracture Status: Acute Assessment and Plan: Orthopedics consulted. Obtain records from [facility] ([place] (13) Distal radial fracture: Qualifiers: Encounter type: subsequent encounter Fracture healing: with nonunion Fracture morphology: unspecified fracture morphology Fracture type: closed Laterality: left Qualified Code(s): S52.502K - Unspecified fracture of the lower end of left radius, subsequent encounter for closed fracture with nonunion Code(s): S52.509A - Unspecified fracture of the lower end of unspecified radius, initial encounter for closed fracture Status: Acute Assessment and Plan: Currently in splint. Orthopedics consulted Plan DVT prophylaxis -SCDs Stress ulcer prophylaxis -Protonix IV Nutrition -continue tube feeds Code Status - Full Code Total Critical Care Time - 30 minutes Due to a high probability of clinically significant, life threatening deterioration, the patient required my highest level of preparedness to intervene emergently and I personally spent this critical care time directly and personally managing the patient. This critical care time included obtaining a history; examining the patient; pulse oximetry; ordering and review of studies; arranging urgent treatment with development of a management plan; evaluation of patient's response to treatment; frequent reassessment; and discussions with other providers. It was exclusive of separately billable procedures and treating other patients and teaching time. Please see Assessment and Plan section and the rest of the note for further information on patient assessment and treatment Subjective Date/time seen: 01/24/25 Overnight events reviewed. Afebrile. Overnight blood pressure was elevated required treatment. She continues to be off of all sedation Continues to be on mechanical ventilation 35% FiO2 Yesterday she did okay on weaning trial with adequate ABG in RSBI but she was not awake enough hence patient was not extubated. This morning she is much more awake and is following commands. Review of Systems Review of Systems: ROS unobtainable: Yes unobtainable due to endotracheal tube, unobtainable due to medical condition and unobtainable due to mental status Exam Narrative: General: Pt is cachectic old female who looks much older than her age. She is Sedated, intubated and on mechanical ventilation Lungs/Chest: Trachea central Coarse BS B/L, No crackles or wheezing. Overall decreased air movement throughout lungs with barrel chest Cardiac: RRR. Normal S1 S2. No murmurs Circulation: Pedal pulses are intact and symmetrical. Abdomen: Decreased bowel sounds.. Soft. NT. ND. Extremities: No clubbing, cyanosis or edema. Feet are cold : Mclean in place Neurologic: Off sedation. She is awake and and nodes are head to questions, she appears weak but does move all 4 extremities and follows commands. PERRL Skin: Petechia on the chest Objective Data Vital Signs Vital Signs: Vital Signs - 24 hr 01/23/25 08:00 01/23/25 08:00 01/23/25 08:00 Temperature 37.8 C H Pulse Rate 81 81 80 Respiratory Rate 16 16 Blood Pressure 152/107 H Pulse Oximetry 98 97 Oxygen Delivery Mechanical Ventilation Fraction of Inspired Oxygen 30 01/23/25 08:00 01/23/25 08:00 01/23/25 08:00 Temperature Pulse Rate 80 80 Respiratory Rate 16 Blood Pressure Pulse Oximetry Oxygen Delivery Fraction of Inspired Oxygen 30 01/23/25 08:00 01/23/25 09:29 01/23/25 09:35 Temperature Pulse Rate 102 H 105 H Respiratory Rate Blood Pressure Pulse Oximetry 94 93 Oxygen Delivery Mechanical Ventilation Mechanical Ventilation Fraction of Inspired Oxygen 30 01/23/25 10:00 01/23/25 10:00 01/23/25 10:00 Temperature 38.5 C H Pulse Rate 85 86 86 Respiratory Rate 25 H 23 H 23 H Blood Pressure 148/105 H Pulse Oximetry 92 Oxygen Delivery Fraction of Inspired Oxygen 01/23/25 10:00 01/23/25 12:00 01/23/25 12:00 Temperature 38.8 C H Pulse Rate 86 87 86 Respiratory Rate 20 16 Blood Pressure 141/92 H Pulse Oximetry 94 Oxygen Delivery Fraction of Inspired Oxygen 01/23/25 12:00 01/23/25 12:00 01/23/25 12:00 Temperature Pulse Rate 86 86 Respiratory Rate 16 Blood Pressure Pulse Oximetry Oxygen Delivery Fraction of Inspired Oxygen 30 01/23/25 12:00 01/23/25 14:00 01/23/25 14:00 Temperature 39.2 C H Pulse Rate 94 93 Respiratory Rate 24 H Blood Pressure 162/121 H Pulse Oximetry 94 94 Oxygen Delivery Mechanical Ventilation Fraction of Inspired Oxygen 01/23/25 14:11 01/23/25 14:11 01/23/25 14:23 Temperature Pulse Rate 94 94 90 Respiratory Rate 19 19 Blood Pressure Pulse Oximetry Oxygen Delivery Fraction of Inspired Oxygen 01/23/25 14:27 01/23/25 14:28 01/23/25 15:07 Temperature 39.2 C H Pulse Rate 90 78 Respiratory Rate Blood Pressure Pulse Oximetry 93 94 Oxygen Delivery Mechanical Ventilation Mechanical Ventilation Fraction of Inspired Oxygen 30 30 01/23/25 16:00 01/23/25 16:00 01/23/25 16:00 Temperature Pulse Rate 74 Respiratory Rate Blood Pressure Pulse Oximetry 94 Oxygen Delivery Mechanical Ventilation Fraction of Inspired Oxygen 30 30 01/23/25 16:00 01/23/25 16:52 01/23/25 18:00 Temperature 38.3 C H 37.7 C H Pulse Rate 75 74 74 Respiratory Rate 19 18 Blood Pressure 123/79 139/90 Pulse Oximetry 93 94 95 Oxygen Delivery Mechanical Ventilation Fraction of Inspired Oxygen 30 01/23/25 18:00 01/23/25 20:00 01/23/25 20:00 Temperature 37.6 C Pulse Rate 74 74 74 Respiratory Rate 16 Blood Pressure 145/89 H Pulse Oximetry 98 Oxygen Delivery Fraction of Inspired Oxygen 01/23/25 20:00 01/23/25 20:00 01/23/25 20:08 Temperature Pulse Rate 74 Respiratory Rate Blood Pressure Pulse Oximetry 97 96 Oxygen Delivery Mechanical Ventilation Mechanical Ventilation Fraction of Inspired Oxygen 30 30 30 01/23/25 21:20 01/23/25 22:00 01/23/25 22:00 Temperature 37.2 C Pulse Rate 75 69 67 Respiratory Rate 12 Blood Pressure 153/97 H Pulse Oximetry 97 Oxygen Delivery Fraction of Inspired Oxygen 01/23/25 23:22 01/24/25 00:00 01/24/25 00:00 Temperature 37.1 C Pulse Rate 73 73 Respiratory Rate 17 Blood Pressure 155/87 H Pulse Oximetry 97 97 95 Oxygen Delivery Mechanical Ventilation Mechanical Ventilation Fraction of Inspired Oxygen 30 30 01/24/25 00:00 01/24/25 00:00 01/24/25 01:34 Temperature Pulse Rate 72 71 Respiratory Rate Blood Pressure Pulse Oximetry Oxygen Delivery Fraction of Inspired Oxygen 30 01/24/25 02:12 01/24/25 02:12 01/24/25 04:00 Temperature 36.7 C 36.5 C Pulse Rate 68 68 68 Respiratory Rate 16 16 Blood Pressure 160/101 H 172/107 H Pulse Oximetry 96 99 Oxygen Delivery Fraction of Inspired Oxygen 01/24/25 04:00 01/24/25 04:00 01/24/25 04:00 Temperature Pulse Rate 66 Respiratory Rate Blood Pressure Pulse Oximetry 99 Oxygen Delivery Mechanical Ventilation Fraction of Inspired Oxygen 30 30 01/24/25 05:19 01/24/25 06:00 01/24/25 06:00 Temperature 36.2 C L Pulse Rate 67 71 71 Respiratory Rate 23 H Blood Pressure 134/83 Pulse Oximetry 97 99 Oxygen Delivery Mechanical Ventilation Fraction of Inspired Oxygen 30 Intake/Output Intake/Output: Intake & Output 01/21/25 01/22/25 01/23/25 01/24/25 23:59 23:59 23:59 23:59 Intake Total 2602 1028 806.2 1306 Output Total 1300 3175 3100 825 Balance 1302 -2147 -2293.8 481 Meds/Results Medications: Active Medications Generic Name Dose Route Start Last Admin Trade Name Freq PRN Reason Stop Dose Admin Acetaminophen 650 mg 01/23/25 14:11 01/23/25 18:43 Acetaminophen 325 Mg Tablet FEED TUBE 650 mg Q4H PRN Administration Fever 1-3 Dextrose 12.5 gm 01/20/25 08:23 Dextrose 50% 25 Gm/50 Ml Syringe IV PUSH PRN PRN Hypoglycemia Protocol Epoetin Emil-epbx 10,000 units 01/23/25 09:00 01/23/25 09:44 Epoetin Emil-Epbx 10,000 Units/Ml Vial SUB-Q 10,000 units TUTHSA@09 MEENA Administration Folic Acid 1 mg 01/20/25 09:00 01/23/25 09:31 Folic Acid 1 Mg/0.2 Ml Inj IV PUSH 1 mg QAM MEENA Administration Glucagon 1 mg 01/20/25 08:23 Glucagon For Inj 1 Mg Vial IM PRN PRN Hypoglycemia Protocol Glucose 15 gm 01/20/25 08:23 Glucose Oral Gel 15 Gm Of Glucse In 37.5 Gm Tube PO PRN PRN Hypoglycemia Protocol Hydralazine HCl 20 mg 01/24/25 03:34 01/24/25 04:52 Hydralazine Hcl 20 Mg/Ml Vial IV PUSH 20 mg Q4H PRN Administration Hypertension Dextrose 1,000 mls @ 100 mls/hr 01/20/25 08:23 Dextrose 5% 1,000 Ml IVPB PRN PRN Hypoglycemia Protocol Piperacillin Sod/Tazobactam 50 mls @ 100 mls/hr 01/21/25 08:00 01/24/25 01:39 Sod 2.25 gm/ Sodium Chloride IVPB Infused Q8H MEENA Infusion Insulin Aspart 3 - 6 units 01/20/25 12:00 01/24/25 06:48 Insulin Aspart (*Bkc) 100 Units/Ml SUB-Q Not Given Q6HR [facility] Protocol Labetalol HCl 20 mg 01/23/25 09:31 01/24/25 01:34 Labetalol Hcl Inj 100 Mg/20 Ml Vial IV PUSH 20 mg Q4H PRN Administration SBP > 160 and HR> 60 -1st choice Multi-Ingred Cream/Lotion/Oil/Oint 1 applic 01/22/25 21:00 01/23/25 20:36 Mineral Oil/White Petrolatum Ointment EACH EYE 1 applic Q12HR MEENA Administration Mupirocin 1 applic 01/20/25 09:00 01/23/25 20:36 Mupirocin 2% Oint 22 Gm Tube EACH NARE 01/24/25 21:01 1 applic Q12HR MEENA Administration Pantoprazole Sodium 40 mg 01/21/25 09:00 01/23/25 20:36 Pantoprazole Sodium Iv 40 Mg Vial IV PUSH 40 mg Q12HR MEENA Administration Sodium Chloride 10 ml 01/20/25 06:00 01/24/25 04:56 Central Line Flush IV PUSH 10 ml Q8HR MEENA Administration Sodium Chloride 20 ml 01/20/25 01:15 01/24/25 04:56 Central Line Flush IV PUSH 20 ml PRN PRN Administration after blood draws Thiamine HCl 100 mg 01/20/25 09:00 01/23/25 09:31 Thiamine Hcl 200 Mg/2 Ml Vial IV PUSH 100 mg QAM MEENA Administration Radiology Results: ITS Impressions Abdomen X-Ray 01/20/25 05:42 Impression: NG tube in satisfactory position. Small left pleural effusion. Chest/Abdomen/Pelvis CT 01/20/25 05:48 Impression: Moderate to large left pleural effusion with extensive left lower lobe atelectasis. Small right pleural effusion. 9 mm spiculated nodule in the right lower lobe, as detailed above, indeterminate. CT scan in 3 months advised. Consider PET/CT or attempted tissue sampling as indicated. Moderate emphysema. No definite evidence for GI bleed, but evaluation is limited without IV contrast and with oral contrast on board. Consider follow-up CT angiogram of the bowel to further evaluate for GI bleed, as indicated. Moderate abdominopelvic ascites. T12 compression fracture, somewhat age indeterminate, but new since 06/20/2024. Fractures of the right anterior acetabulum at the junction of the right superior pubic ramus and of the right inferior pubic ramus, acute to subacute in nature. Head CT 01/20/25 06:13 Impression: No intracranial hemorrhage, mass, or acute infarct. Atrophy and chronic white matter changes, as above. Wrist X-Ray 01/20/25 06:13 Impression: Probable chronic fracture deformities of the distal radius and ulnar styloid process, as detailed above. No definite acute fracture. Renal Ultrasound 01/21/25 08:42 IMPRESSION: 1. Medical renal disease. 2. Mild bilateral hydronephrosis. No nephrolithiasis. Chest X-Ray 01/24/25 07:32 Impression: 1: Stable mild interstitial edema with small left pleural effusion. Labs Labs: Laboratory Results - last 24 hr 01/23/25 01/23/25 01/23/25 10:09 11:13 11:17 WBC RBC Hgb Hct MCV MCH MCHC RDW Plt Count MPV % Immature Plt Fraction Puncture Site Left radial ABG pH 7.392 ABG pCO2 45.0 ABG pO2 74.4 L ABG PO2/FiO2 Ratio 2.48 ABG HCO3 26.8 H ABG O2 Saturation 94.8 L ABG O2 Content 16.6 ABG Base Excess 1.4 A-a Gradient 86.6 Oxyhemoglobin 93.4 Carboxyhemoglobin Methemoglobin Reduced Hemoglobin Total Hemoglobin 12.6 O2 Delivery Device Ventilator O2 Liters/Min Not Reportable Minute Volume Not Reportable Vent Rate Not Reportable Vent Mode Spontaneous FiO2 30 Tidal Volume Not Reportable PEEP 8 Peak Inspir Pressure Not Reportable Pressure Support 5 Sodium Potassium Chloride Carbon Dioxide Anion Gap BUN Creatinine Estim Creat Clear Calc Estimated GFR Glucose POC Capillary Glucose 151 H Calcium Phosphorus Magnesium Total Bilirubin AST ALT Alkaline Phosphatase Total Protein Albumin Random Vancomycin 18.9 01/23/25 01/23/25 01/24/25 18:14 23:58 04:53 WBC 9.6 RBC 3.49 L Hgb 10.2 L Hct 33.0 L MCV 94.6 MCH 29.2 MCHC 30.9 L RDW 18.2 H Plt Count 39 L MPV 10.5 H % Immature Plt Fraction 3.3 Puncture Site ABG pH ABG pCO2 ABG pO2 ABG PO2/FiO2 Ratio ABG HCO3 ABG O2 Saturation ABG O2 Content ABG Base Excess A-a Gradient Oxyhemoglobin Carboxyhemoglobin Methemoglobin Reduced Hemoglobin Total Hemoglobin O2 Delivery Device O2 Liters/Min Minute Volume Vent Rate Vent Mode FiO2 Tidal Volume PEEP Peak Inspir Pressure Pressure Support Sodium 143 Potassium 3.5 Chloride 104 Carbon Dioxide 29 Anion Gap 10 BUN 84 H Creatinine 2.40 H Estim Creat Clear Calc 16 Estimated GFR 21 L Glucose 127 H POC Capillary Glucose 147 H 137 H Calcium 7.9 L Phosphorus 1.3 L Magnesium 1.4 L Total Bilirubin 1.2 AST 26 ALT 32 Alkaline Phosphatase 63 Total Protein 4.9 L Albumin 3.0 L Random Vancomycin 01/24/25 05:01 WBC RBC Hgb Hct MCV MCH MCHC RDW Plt Count MPV % Immature Plt Fraction Puncture Site Right radial ABG pH 7.524 H* ABG pCO2 33.9 L ABG pO2 76.4 L ABG PO2/FiO2 Ratio 2.55 ABG HCO3 27.3 H ABG O2 Saturation 96.6 ABG O2 Content 15.6 L ABG Base Excess 4.6 A-a Gradient 97.7 Oxyhemoglobin 95.3 Carboxyhemoglobin 0.9 Methemoglobin 0.1 Reduced Hemoglobin 3.7 Total Hemoglobin 11.6 L O2 Delivery Device Ventilator O2 Liters/Min Not Reportable Minute Volume Not Reportable Vent Rate 16 Vent Mode Cmv FiO2 30 Tidal Volume 320 PEEP 8 Peak Inspir Pressure Not Reportable Pressure Support Not Reportable Sodium Potassium Chloride Carbon Dioxide Anion Gap BUN Creatinine Estim Creat Clear Calc Estimated GFR Glucose POC Capillary Glucose Calcium Phosphorus Magnesium Total Bilirubin AST ALT Alkaline Phosphatase Total Protein Albumin Random Vancomycin Quality VTE Prophylaxis VTE prophylaxis: mechanical ordered
[2025-01-24] MEDS: POTASSIUM CHLORIDE 20 MEQ PACKET (FOR LIQUID) 40 MEQ PO (08:10)
[2025-01-24] MEDS: PIPERACILLIN/TAZOBACTAM SOD 2.25 GM in SODIUM CHLORIDE 0.9% IV 50 ML IVPB (08:10)
[2025-01-24] MEDS: PANTOPRAZOLE SODIUM IV 40 MG VIAL IV PUSH ×2 (08:11→22:16)
[2025-01-24] MEDS: MUPIROCIN 2% OINT 22 GM TUBE 1 APPLIC EACH NARE ×2 (08:12→22:15)
[2025-01-24] MEDS: THIAMINE HCL 200 MG/2 ML VIAL 100 MG IV PUSH (08:12)
[2025-01-24] MEDS: FOLIC ACID 1 MG/0.2 ML INJ IV PUSH (08:19)
--- NOTE | 2025-01-24 09:17 | PCRCNOTE ---
ordered 0810 ABG drawn and obtained, however there was issues running patients sample. Clots removed, machines unable to read sample. Per Dr. Beltran, continue to move forward and extubate.
--- NOTE | 2025-01-24 09:32 | PC.NURSE ---
Pt extubated at 0900 to 3L NC. O2 saturation adequate but pt breathing very shallow and quickly in the 40's. Dr. Beltran to bedside to assess patient. Order placed for Bipap prn, continue for now. At 0920 asked pt if she was short of breath, pt nodded head yes. Respiratory placed on Bipap 12/[address]%. [address] Beltran notified.
[2025-01-24] MEDS: ETOMIDATE 20 MG/10 ML AMPUL IV PUSH (09:44)
--- NOTE | 2025-01-24 09:49 | WPDPROCEDUR ---
Procedures Intubation Intubation Date: 01/24/25 Intubation Time: 09:30 Consent: Verbal consent was obtained from the patient Sedative: etomidate Mg given: 20 Laryngoscope: fiber optic video scope Assist device used: fiber optic device ET tube size: 7.5 Tube secured depth (cm): 22 Tube secured location: lips Tube placement confirmation: visualized tube passing through cords, equal breath sounds bilaterally, no breath sounds over epigastrium and confirmation by capnometry Patient tolerated procedure: well Intubation complications: none Additional comments: Patient was trialed this morning. She did okay with borderline but acceptable RSBI. Patient was awake and following commands we decided to extubate and give patient an opportunity. She does have history of COPD. Post extubation patient was tachypneic. I placed on BiPAP but her tachypnea and work of breathing kept on getting worse and she started complaining of feeling short of breath. Decision was made to reintubate patient. Patient was agreeable and patient was reintubated without any major complications. Post tubal chest x-ray is pending I will resume her tube feeds and placed her back on the system ventilation. Will start on low-dose propofol for comfort and sedation.
[2025-01-24] MEDS: PROPOFOL IV EMULSION 100 ML 2.66 MG IV CONT (09:52)
[2025-01-24 10:18] LABS: Triglycerides 65 mg/dL (<150)
--- NOTE | 2025-01-24 10:19 | P.CONOP_ITS ---
Assessment and Plan Assessment and plan (1) T12 compression fracture: Code(s): S22.080A - Wedge compression fracture of T11-T12 vertebra, initial encounter for closed fracture Status: Acute (2) Acetabulum fracture, right: Code(s): S32.401A - Unspecified fracture of right acetabulum, initial encounter for closed fracture Status: Acute (3) Wrist fracture, left: Code(s): S62.102A - Fracture of unspecified carpal bone, left wrist, initial encounter for closed fracture Status: Acute Assessment and Plan: The patient is a 59-year-old female presented to the emergency department with an acute GI bleed. She was subsequently intubated and transferred to the ICU. He has been intubated for about 4 days now. The plan is for extubation possibly today. On evaluation in the emergency room was determined that she had a left distal radius fracture age indeterminate as well as a T12 compression fracture that is new. She has a right acetabular fracture that was not evaluated with x- rays at that time secondary to her instability with regards to her hemodynamics. She is currently intubated the time my evaluation. Based on the x-rays for the left distal radius fracture believe this is a stable fracture and splint can be removed. With regards to her acetabular fracture I will order pelvic x-rays to be done today and based on that will give my recommendations. With regards to her left upper extremity I would recommend weight-bearing as tolerated. No splint is needed. History of Present Illness HPI Consult date: 01/24/25 Chief complaint: Left Wrist Fx , t12 Comp fx, R Acet Fx Narrative: The patient is a 59-year-old female who presented to the emergency department with a GI bleed on January 202024. The patient was subsequently transferred to the ICU intubated. At the time of my exam the patient was still intubated. I evaluated the patient with regards to her left wrist fracture retreat 12 compression fracture as well as her right acetabular fracture. [facility] Past Medical History Medical History Acute on chronic anemia Erosive esophagitis Elevated liver enzymes CKD (chronic kidney disease) stage 4, GFR 15-29 ml/min Severe protein-calorie malnutrition Alcoholic cirrhosis of liver with ascites Alcohol abuse Surgical History Surgical History (Updated 01/20/25 @ 06:43 by Naila Torres DO) Status post open reduction with internal fixation of fracture Right femur Family History Family History (Updated 01/20/25 @ 06:43 by Naila Torres DO) Other Unknown family medical history Social History Social History (Updated 01/20/25 @ 06:44 by Naila Torres DO) Social History: Patient has a history of chronic alcohol abuse. Her urine drug screen was also positive for amphetamines. Patient has dark tobacco staining to her fingers. Smoking packs per day: 1 Smoking cigarettes per day: 20.0 Years smoked: 40 Smoking pack-years: 40.00 Smoking status: Current every day smoker Tobacco type: cigarettes Alcohol intake: current Substance use: unknown Spiritual care concerns: No Meds Home Medications and Allergies Home Medications ?Medication ?Instructions ?Recorded ?Confirmed ?Type clonazepam 1 mg tablet 1 mg PO Q8H PRN anxiety 01/0201/20/25 History diazepam 10 mg tablet 10 mg PO DAILY 01/20/2501/02 History Allergies Allergy/AdvReac Type Severity Reaction Status Date / Time codeine Allergy Mild Verified 11/23/09 20:50 gabapentin Allergy Mild Verified 11/23/09 20:50 Penicillins Allergy Mild Verified 01/20/25 07:51 Vital Signs Vital Signs - 24 hr 01/23/25 12:00 01/23/25 12:00 01/23/25 12:00 Temperature 38.8 C H Pulse Rate 87 86 86 Respiratory Rate 20 16 16 Blood Pressure 141/92 H Pulse Oximetry 94 Oxygen Delivery Fraction of Inspired Oxygen 01/23/25 12:00 01/23/25 12:00 01/23/25 12:00 Temperature Pulse Rate 86 Respiratory Rate Blood Pressure Pulse Oximetry 94 Oxygen Delivery Mechanical Ventilation Fraction of Inspired Oxygen 30 01/23/25 14:00 01/23/25 14:00 01/23/25 14:11 Temperature 39.2 C H Pulse Rate 94 93 94 Respiratory Rate 24 H 19 Blood Pressure 162/121 H Pulse Oximetry 94 Oxygen Delivery Fraction of Inspired Oxygen 01/23/25 14:11 01/23/25 14:23 01/23/25 14:27 Temperature 39.2 C H Pulse Rate 94 90 Respiratory Rate 19 Blood Pressure Pulse Oximetry Oxygen Delivery Fraction of Inspired Oxygen 01/23/25 14:28 01/23/25 15:07 01/23/25 16:00 Temperature Pulse Rate 90 78 74 Respiratory Rate Blood Pressure Pulse Oximetry 93 94 Oxygen Delivery Mechanical Ventilation Mechanical Ventilation Fraction of Inspired Oxygen 30 30 01/23/25 16:00 01/23/25 16:00 01/23/25 16:00 Temperature 38.3 C H Pulse Rate 75 Respiratory Rate 19 Blood Pressure 123/79 Pulse Oximetry 94 93 Oxygen Delivery Mechanical Ventilation Fraction of Inspired Oxygen 30 30 01/23/25 16:52 01/23/25 18:00 01/23/25 18:00 Temperature 37.7 C H Pulse Rate 74 74 74 Respiratory Rate 18 Blood Pressure 139/90 Pulse Oximetry 94 95 Oxygen Delivery Mechanical Ventilation Fraction of Inspired Oxygen 30 01/23/25 20:00 01/23/25 20:00 01/23/25 20:00 Temperature 37.6 C Pulse Rate 74 74 Respiratory Rate 16 Blood Pressure 145/89 H Pulse Oximetry 98 Oxygen Delivery Fraction of Inspired Oxygen 30 01/23/25 20:00 01/23/25 20:08 01/23/25 21:20 Temperature Pulse Rate 74 75 Respiratory Rate Blood Pressure Pulse Oximetry 97 96 Oxygen Delivery Mechanical Ventilation Mechanical Ventilation Fraction of Inspired Oxygen 30 30 01/23/25 22:00 01/23/25 22:00 01/23/25 23:22 Temperature 37.2 C Pulse Rate 69 67 73 Respiratory Rate 12 Blood Pressure 153/97 H Pulse Oximetry 97 97 Oxygen Delivery Mechanical Ventilation Fraction of Inspired Oxygen 30 01/24/25 00:00 01/24/25 00:00 01/24/25 00:00 Temperature 37.1 C Pulse Rate 73 72 Respiratory Rate 17 Blood Pressure 155/87 H Pulse Oximetry 97 95 Oxygen Delivery Mechanical Ventilation Fraction of Inspired Oxygen 30 01/24/25 00:00 01/24/25 01:34 01/24/25 02:12 Temperature Pulse Rate 71 68 Respiratory Rate Blood Pressure Pulse Oximetry Oxygen Delivery Fraction of Inspired Oxygen 30 01/24/25 02:12 01/24/25 04:00 01/24/25 04:00 Temperature 36.7 C 36.5 C Pulse Rate 68 68 Respiratory Rate 16 16 Blood Pressure 160/101 H 172/107 H Pulse Oximetry 96 99 99 Oxygen Delivery Mechanical Ventilation Fraction of Inspired Oxygen 30 01/24/25 04:00 01/24/25 04:00 01/24/25 05:19 Temperature Pulse Rate 66 67 Respiratory Rate Blood Pressure Pulse Oximetry 97 Oxygen Delivery Mechanical Ventilation Fraction of Inspired Oxygen 30 30 01/24/25 06:00 01/24/25 06:00 01/24/25 07:34 Temperature 36.2 C L Pulse Rate 71 71 64 Respiratory Rate 23 H Blood Pressure 134/83 Pulse Oximetry 99 96 Oxygen Delivery Mechanical Ventilation Fraction of Inspired Oxygen 30 01/24/25 08:00 01/24/25 08:00 01/24/25 08:00 Temperature Pulse Rate 69 Respiratory Rate Blood Pressure Pulse Oximetry Oxygen Delivery BiPAP Fraction of Inspired Oxygen 30 30 01/24/25 09:00 01/24/25 09:20 Temperature Pulse Rate 77 75 Respiratory Rate 40 H Blood Pressure Pulse Oximetry 93 95 Oxygen Delivery BiPAP Fraction of Inspired Oxygen Exam 2 Narrative: On examination the patient is in the ICU bed 10 intubated. Evaluation of the patient's left wrist shows that she has a volar based OCL splint. She had moderate swelling of her fingers. Bilateral lower extremity was evaluated with regard to her knees and ankles in there with no swelling tenderness or deformity. Results Labs 01/24/25 04:53 01/24/25 04:53 Labs: Abnormal lab results 01/23/25 01/23/25 01/23/25 Range/Units 10:09 11:17 18:14 RBC (4.2-5.4) M/mm3 Hgb (12.0-15.0) g/dL Hct (37.0-47.0) % MCHC (32-36) g/dl RDW (11.5-14.5) % Plt Count (150-375) k/mm3 MPV (7.4-10.4) fl ABG pH (7.350-7.450) ABG pCO2 (35.0-45.0) mmHg ABG pO2 74.4 L (80.0-100.0) mmHg ABG HCO3 26.8 H (22.0-26.0) mEq/l ABG O2 Saturation 94.8 L (95.0-100.0) % ABG O2 Content (16.0-22.0) %vol Total Hemoglobin (12.0-18.0) g/dL BUN (7-17) mg/dL Creatinine (0.7-1.0) mg/dL Estimated GFR (59 - ) Glucose (65-110) mg/dL POC Capillary Glucose 151 H 147 H (65-105) mg/dl Calcium (8.4-10.2) mg/dL Phosphorus (2.5-4.5) mg/dL Magnesium (1.6-2.3) mg/dL Total Protein (6.3-8.2) g/dL Albumin (3.5-5.1) g/dL 01/23/25 01/24/25 01/24/25 Range/Units 23:58 04:53 05:01 RBC 3.49 L (4.2-5.4) M/mm3 Hgb 10.2 L (12.0-15.0) g/dL Hct 33.0 L (37.0-47.0) % MCHC 30.9 L (32-36) g/dl RDW 18.2 H (11.5-14.5) % Plt Count 39 L (150-375) k/mm3 MPV 10.5 H (7.4-10.4) fl ABG pH 7.524 H* (7.350-7.450) ABG pCO2 33.9 L (35.0-45.0) mmHg ABG pO2 76.4 L (80.0-100.0) mmHg ABG HCO3 27.3 H (22.0-26.0) mEq/l ABG O2 Saturation (95.0-100.0) % ABG O2 Content 15.6 L (16.0-22.0) %vol Total Hemoglobin 11.6 L (12.0-18.0) g/dL BUN 84 H (7-17) mg/dL Creatinine 2.40 H (0.7-1.0) mg/dL Estimated GFR 21 L (59 - ) Glucose 127 H (65-110) mg/dL POC Capillary Glucose 137 H (65-105) mg/dl Calcium 7.9 L (8.4-10.2) mg/dL Phosphorus 1.3 L (2.5-4.5) mg/dL Magnesium 1.4 L (1.6-2.3) mg/dL Total Protein 4.9 L (6.3-8.2) g/dL Albumin 3.0 L (3.5-5.1) g/dL H & H 01/20/25 01/20/25 01/20/25 Range/Units 00:30 05:17 15:11 Hgb 7.0 L 9.1 L Cancelled (12.0-15.0) g/dL Hct 22.8 L 27.1 L (37.0-47.0) % 01/20/25 01/20/25 01/21/25 Range/Units 15:11 15:11 06:36 Hgb 6.1 L* 6.3 L* (12.0-15.0) g/dL Hct Cancelled 18.6 L* 20.2 L* (37.0-47.0) % 01/21/25 01/21/25 01/22/25 Range/Units 12:30 18:50 05:06 Hgb 9.1 L 9.5 L 10.1 L (12.0-15.0) g/dL Hct 28.3 L 29.4 L 31.7 L (37.0-47.0) % 01/22/25 01/22/25 01/23/25 Range/Units 12:46 19:55 01:58 Hgb 9.9 L 10.2 L 10.3 L (12.0-15.0) g/dL Hct 31.1 L 32.3 L 32.6 L (37.0-47.0) % 01/24/25 Range/Units 04:53 Hgb 10.2 L (12.0-15.0) g/dL Hct 33.0 L (37.0-47.0) % Coagulation 01/20/25 01/20/25 01/20/25 Range/Units 00:30 05:17 15:11 INR 1.4 1.4 1.5 All other labs normal.
--- NOTE | 2025-01-24 10:37 | P.PNNP_ITS ---
Progress Note: A&P Assessment and Plan (1) Acute kidney injury: Code(s): N17.9 - Acute kidney failure, unspecified Status: Acute Assessment and Plan: * relatively stable if not better * as noted on admission (creatinine of 3.43mg/dl) * likely due to multiple issues: * prerenal factors (poor nutrition) * anemia/GI bleed * infection/sepsis (+ blood cultures) * respiratory failure * hypoxia * liver disease/cirrhosis * progression of underlying CKD * other(?) * evaluation to date noted: * renal ultrasound with CKD and mild bilateral hydronephrosis - mcqueen cathter placed * urine electrolytes prerenal - suspect due to a combination of poor oral intake AND liver disease/physiology (decreased effective circulating volume) * urine eosinophils negative * CPK low * ~ 2 grams of proteinuria * maintain hemodynamics and H/H as tolerated * noted reasonable urine output with IV diuretic use * follow trend of repeat labs and UOP (2) Stage 4 chronic kidney disease: Code(s): N18.4 - Chronic kidney disease, stage 4 (severe) Status: Chronic Assessment and Plan: * not entirely clear what baseline creatinine really is.... * was noted to be ~ 1.4 - 1.6mg/dl in June 2024 * however, since December 2024, has been running ~ 2.4 - 2.6mg/dl (from record review from [facility], [place]) * most recent labs done on 01/15/25 -- creatinine up to 2.79mg/dl (ER visit at [facility] prior to leaving [facility]) (3) Acute upper GI bleeding: Code(s): K92.2 - Gastrointestinal hemorrhage, unspecified Status: Acute Assessment and Plan: * suspected based on admission events/presentation * GI following * s/p EGD (on 01/20): * noted erosive esophagitis but no varices or bleeding lesions noted * PRBC transfusion per protocol * corrected coagulopathy * IV PPI * follow trend on H/H (4) Acute hypoxic respiratory failure: Code(s): J96.01 - Acute respiratory failure with hypoxia Status: Acute Assessment and Plan: * multifactorial: * inability to protect airway * aspiration pneumonia * pleural effusions * suspected upper GI bleed * complicated by underlying COPD * imaging noted - mild pulmonary edema * IV diuretics PRN for fluid overload (follow CXR results) * failed trial of extubation today (01/24) * continue ventilator support (5) Sepsis: Code(s): A41.9 - Sepsis, unspecified organism Status: Acute Assessment and Plan: * possibly from pneumonia (aspiration) versus UTI * follow culture data: * blood cultures (from 01/20): Staphylococcus hominis * urine culture - no growth to date * on antibiotics * stable hemodynamics noted * follow repeat cultures (6) Anemia: Code(s): D64.9 - Anemia, unspecified Status: Acute Assessment and Plan: * due to several issues: * due to underlying CKD * iron deficiency * #3 - GI following * liver disease * coagulopathy * other * PRBC transfusion as needed * Epogen while hospitalized * follow trend of H/H (7) Coagulopathy: Code(s): D68.9 - Coagulation defect, unspecified Status: Acute Assessment and Plan: * porbably secondary to liver cirrhosis * complicated by thrombocytopenia also related to liver disease * s/p cryoprecipitate, platelets, and FFP transfusion * follow INR (8) Alcoholic cirrhosis of liver with ascites: Code(s): K70.31 - Alcoholic cirrhosis of liver with ascites Status: Acute Assessment and Plan: * as evidence by admission CT/imaging findings * presumably partly related to alcohol intake * GI following (9) Transaminitis: Code(s): R74.01 - Elevation of levels of liver transaminase levels Status: Acute Assessment and Plan: * noted by admission labs * suspect secondary to/consistent with with alcoholic liver disease. * hepatitis panel noted (10) Acetabular fracture: Qualifiers: Encounter type: initial encounter Fracture alignment: nondisplaced F racture type: closed Laterality: right Sublocation of acetabulum: unspecified portion of acetabulum Qualified Code(s): S32.401A - Unspecified fracture of right acetabulum, initial encounter for closed fracture Code(s): S32.409A - Unspecified fracture of unspecified acetabulum, initial encounter for closed fracture Status: Acute Assessment and Plan: * as noted by admission CT imaging: * fractures of the right anterior acetabulum at the junction of the right superior pubic ramus and of the right inferior pubic ramus, acute to subacute in nature * Orthopedic Surgery recommendations * follow-up on repeat imaging (11) Distal radial fracture: Qualifiers: Encounter type: subsequent encounter Fracture healing: with nonunion F racture morphology: unspecified fracture morphology Fracture type: closed L aterality: left Qualified Code(s): S52.502K - Unspecified fracture of the lower end of left radius, subsequent encounter for closed fracture with nonunion Code(s): S52.509A - Unspecified fracture of the lower end of unspecified radius, initial encounter for closed fracture Status: Acute Assessment and Plan: * apparently chronic in nature by X-rays * Orthopedic Surgery recommendations reviewed (12) Alcohol abuse: Code(s): F10.10 - Alcohol abuse, uncomplicated Status: Acute Assessment and Plan: * known history * on IV thiamine and folate Will continue to follow. L Subjective Date/time seen: 01/24/25 10:37 Interval history: Follow-up for acute kidney injury/acute renal failure on chronic kidney disease. Events noted earlier this morning -- failed trial of extubation as she became tachypneic with increased work of breathing as well as complaints of shortness of breath despite BiPAP therapy and hence re-intubated and placed back on mechanical ventilation; remains hemodynamically stable and had issues with hypertension overnight requiring intervention; renal function/creatinine stable if not better despite use of IV diuretics with resultant good urine output. Exam 2 Narrative: General: chronically ill-appearing and cachectic female intubated/sedated and on mechanical ventilation Heart: normal S1 and S2; no rub Lungs: coarse breath sounds; decreased throughout Abdomen: soft, nontender, nondistended, positive bowel sounds Extremities: no cyanosis or clubbing; trace edema Skin: warm and intact Objective Data Vital Signs Vital Signs: Vital Signs Temp Pulse Resp BP Pulse Ox O2 Del Method O2 Flow Rate 01/24/25 10:28 69 14 01/24/25 10:04 72 15 01/24/25 10:00 96.9 F L 71 16 137/88 100 01/24/25 10:00 71 01/24/25 09:52 76 24 H 01/24/25 09:50 71 95 Mechanical Ventilation 01/24/25 09:20 75 40 H 95 BiPAP 01/24/25 09:05 92 Nasal Cannula 3 01/24/25 09:00 77 93 01/24/25 08:00 BiPAP 01/24/25 08:00 69 01/24/25 08:00 01/24/25 07:34 64 96 Mechanical Ventilation 01/24/25 06:00 97.1 F L 71 23 H 134/83 99 01/24/25 06:00 71 01/24/25 05:19 67 97 Mechanical Ventilation 01/24/25 04:00 01/24/25 04:00 66 01/24/25 04:00 99 Mechanical Ventilation 01/24/25 04:00 97.7 F 68 16 172/107 H 99 01/24/25 02:12 98.0 F 68 16 160/101 H 96 01/24/25 02:12 68 01/24/25 01:34 71 01/24/25 00:00 01/24/25 00:00 72 01/24/25 00:00 95 Mechanical Ventilation 01/24/25 00:00 98.7 F 73 17 155/87 H 97 01/23/25 23:22 73 97 Mechanical Ventilation 01/23/25 22:00 67 01/23/25 22:00 99.0 F 69 12 153/97 H 97 01/23/25 21:20 75 01/23/25 20:08 74 96 Mechanical Ventilation 01/23/25 20:00 97 Mechanical Ventilation 01/23/25 20:00 01/23/25 20:00 74 01/23/25 20:00 99.6 F 74 16 145/89 H 98 01/23/25 18:00 74 01/23/25 18:00 99.9 F H 74 18 139/90 95 01/23/25 16:52 74 94 Mechanical Ventilation 01/23/25 16:00 101.0 F H 75 19 123/79 93 01/23/25 16:00 94 Mechanical Ventilation 01/23/25 16:00 01/23/25 16:00 74 01/23/25 15:07 78 94 Mechanical Ventilation 01/23/25 14:28 90 93 Mechanical Ventilation 01/23/25 14:27 102.5 F H 01/23/25 14:23 90 01/23/25 14:11 94 19 01/23/25 14:11 94 19 01/23/25 14:00 102.5 F H 93 24 H 162/121 H 94 01/23/25 14:00 94 Intake/Output Intake/Output: Intake & Output 01/21/25 01/22/25 01/23/25 01/24/25 23:59 23:59 23:59 23:59 Intake Total 2602 1028 806.2 1469.5 Output Total 1300 3175 3100 825 Balance 6688 -1953 -2293.8 644.5 Meds/Results Medications: Active Medications Generic Name Dose Route Start Last Admin Trade Name Freq PRN Reason Stop Dose Admin Acetaminophen 650 mg 01/23/25 14:11 01/23/25 18:43 Acetaminophen 325 Mg Tablet FEED TUBE 650 mg Q4H PRN Administration Fever 1-3 Dextrose 12.5 gm 01/20/25 08:23 Dextrose 50% 25 Gm/50 Ml Syringe IV PUSH PRN PRN Hypoglycemia Protocol Epoetin Emil-epbx 10,000 units 01/23/25 09:00 01/23/25 09:44 Epoetin Emil-Epbx 10,000 Units/Ml Vial SUB-Q 10,000 units TUTHSA@09 MEENA Administration Folic Acid 1 mg 01/20/25 09:00 01/24/25 08:19 Folic Acid 1 Mg/0.2 Ml Inj IV PUSH 1 mg QAM MEENA Administration Glucagon 1 mg 01/20/25 08:23 Glucagon For Inj 1 Mg Vial IM PRN PRN Hypoglycemia Protocol Glucose 15 gm 01/20/25 08:23 Glucose Oral Gel 15 Gm Of Glucse In 37.5 Gm Tube PO PRN PRN Hypoglycemia Protocol Hydralazine HCl 20 mg 01/24/25 03:34 01/24/25 04:52 Hydralazine Hcl 20 Mg/Ml Vial IV PUSH 20 mg Q4H PRN Administration Hypertension Dextrose 1,000 mls @ 100 mls/hr 01/20/25 08:23 Dextrose 5% 1,000 Ml IVPB PRN PRN Hypoglycemia Protocol Piperacillin Sod/Tazobactam 50 mls @ 100 mls/hr 01/21/25 08:00 01/24/25 09:10 Sod 2.25 gm/ Sodium Chloride IVPB Infused Q8H MEENA Infusion Propofol 100 mls @ 2.664 mls/hr 01/24/25 09:45 01/24/25 10:41 Diprivan IV CONT 10 mcg/kg/min .[id number] MEENA 2.66 mls/hr Protocol Titration 10 MCG/KG/MIN Insulin Aspart 3 - 6 units 01/20/25 12:00 01/24/25 11:23 Insulin Aspart (*Bkc) 100 Units/Ml SUB-Q Not Given Q6HR [facility] Protocol Labetalol HCl 20 mg 01/23/25 09:31 01/24/25 01:34 Labetalol Hcl Inj 100 Mg/20 Ml Vial IV PUSH 20 mg Q4H PRN Administration SBP > 160 and HR> 60 -1st choice Multi-Ingred Cream/Lotion/Oil/Oint 1 applic 01/22/25 21:00 01/24/25 08:12 Mineral Oil/White Petrolatum Ointment EACH EYE Not Given Q12HR MEENA Mupirocin 1 applic 01/20/25 09:00 01/24/25 08:12 Mupirocin 2% Oint 22 Gm Tube EACH NARE 01/24/25 21:01 1 applic Q12HR MEENA Administration Pantoprazole Sodium 40 mg 01/21/25 09:00 01/24/25 08:11 Pantoprazole Sodium Iv 40 Mg Vial IV PUSH 40 mg Q12HR MEENA Administration Sodium Chloride 10 ml 01/20/25 06:00 01/24/25 04:56 Central Line Flush IV PUSH 10 ml Q8HR MEENA Administration Sodium Chloride 20 ml 01/20/25 01:15 01/24/25 04:56 Central Line Flush IV PUSH 20 ml PRN PRN Administration after blood draws Thiamine HCl 100 mg 01/20/25 09:00 01/24/25 08:12 Thiamine Hcl 200 Mg/2 Ml Vial IV PUSH 100 mg QAM MEENA Administration Radiology Results: ITS Impressions Abdomen X-Ray 01/20/25 05:42 Impression: NG tube in satisfactory position. Small left pleural effusion. Chest/Abdomen/Pelvis CT 01/20/25 05:48 Impression: Moderate to large left pleural effusion with extensive left lower lobe atelectasis. Small right pleural effusion. 9 mm spiculated nodule in the right lower lobe, as detailed above, indeterminate. CT scan in 3 months advised. Consider PET/CT or attempted tissue sampling as indicated. Moderate emphysema. No definite evidence for GI bleed, but evaluation is limited without IV contrast and with oral contrast on board. Consider follow-up CT angiogram of the bowel to further evaluate for GI bleed, as indicated. Moderate abdominopelvic ascites. T12 compression fracture, somewhat age indeterminate, but new since 06/20/2024. Fractures of the right anterior acetabulum at the junction of the right superior pubic ramus and of the right inferior pubic ramus, acute to subacute in nature. Head CT 01/20/25 06:13 Impression: No intracranial hemorrhage, mass, or acute infarct. Atrophy and chronic white matter changes, as above. Wrist X-Ray 01/20/25 06:13 Impression: Probable chronic fracture deformities of the distal radius and ulnar styloid process, as detailed above. No definite acute fracture. Renal Ultrasound 01/21/25 08:42 IMPRESSION: 1. Medical renal disease. 2. Mild bilateral hydronephrosis. No nephrolithiasis. Chest X-Ray 01/24/25 10:07 Impression: 1: Retrocardiac consolidation which may represent atelectasis and/or pneumonia. 2: Nodular opacity overlying the right mid thorax, not definitely seen on prior studies, most likely prominent nipple shadow. Recommend attention to this on subsequent examinations. Retrocardiac consolidation. Hip/Pelvis X-Ray 01/24/25 11:12 Impression: 1: Healing right acetabular and inferior pubic rami fractures with callus formation. Labs Labs: Laboratory Tests 01/24/25 04:53 01/24/25 04:53 Calcium 7.9 L Phosphorus 1.3 L Magnesium 1.4 L Total Bilirubin 1.2 AST 26 ALT 32 Alkaline Phosphatase 63 Total Protein 4.9 L Albumin 3.0 L Triglycerides 65 Microbiology 01/20/25 02:49 Blood Blood Culture - Final Staphylococcus hominis 01/20/25 02:49 Blood Blood Culture - Preliminary Staphylococcus hominis
--- NOTE | 2025-01-24 11:03 | PCRCNOTE ---
Patient extubated at 0900. At 0925, bipap was administered due to tachypnea and shallow breathing. Patient status did not improve therefore patient was reintubated. Initial mechanical ventilation order edited after reintubation on 01/24/25.
--- NOTE | 2025-01-24 14:15 | P.PNIM_ITS ---
Progress Note: A&P Assessment and Plan (1) Acute upper GI bleeding: Code(s): K92.2 - Gastrointestinal hemorrhage, unspecified Status: Acute Assessment and Plan: Acute upper GI bleed 01/20 EGD showed reflux esophagitis and hiatal hernia Status post transfusion of multiple units of PRBC Coagulopathy cryo FFP Hemoglobin appears to be now stable. I will continue monitoring hemoglobin and transfuse additional PRBC if needed continue IV PPI. Octreotide was discontinued GI following (2) Transaminitis: Code(s): R74.01 - Elevation of levels of liver transaminase levels Status: Acute Assessment and Plan: AST and ALT mildly elevated likely consistent with alcoholic liver disease. Hepatitis C antibody screen is positive. RNA quantitative is [id number] (3) Alcoholic cirrhosis of liver with ascites: Code(s): K70.31 - Alcoholic cirrhosis of liver with ascites Status: Acute Assessment and Plan: Patient has cirrhosis from alcohol liver disease with CT scan showing ascites (4) Acute kidney injury superimposed on stage 4 chronic kidney disease: Code(s): N17.9 - Acute kidney failure, unspecified; N18.4 - Chronic kidney disease, stage 4 (severe) Status: Acute Assessment and Plan: Baseline creatinine in mid 2 Patient was given IV fluids but now off due to concern of volume overload and patient has also received significant amount of blood products. Creatinine improved to 2.40 Monitor urine output electrolytes and creatinine CT scans not show any obstruction or stone Renal ultrasound showed mild bilateral hydronephrosis without any stones Nephrology consulted and following. Patient may need renal replacement therapy if renal function deteriorates Continue diuretics for volume overload. She has had good urine output in response to Lasix Replace potassium (5) Acute hypoxic respiratory failure: Code(s): J96.01 - Acute respiratory failure with hypoxia Status: Acute Assessment and Plan: Acute respiratory failure secondary to aspiration pneumonia pleural effusion upper GI bleed with underlying COPD Ventilator settings reviewed patient is on CMV Currently at a rate of 16, PEEP to 8, FiO2 is at 35 % Chest x-ray reviewed and patient will need additional diuresis and weaning down of PEEP of before weaning trial Imaging reviewed suggest mild pulmonary edema or volume overload. ARDS and pneumonia also possibility patient was given diuretics with good urine output Continue FL bronchodilator 01/23 SBT was done and patient had at could RSBI and ABG but patient was not awake enough. Patient is not extubated due to concern of inability to protect airway once extubated. 01/24 patient placed on PSV SBT. Will evaluate for extubation if patient does well (6) Coagulopathy: Code(s): D68.9 - Coagulation defect, unspecified Status: Acute Assessment and Plan: Coagulopathy secondary to cirrhosis and sepsis Patient received cryo and platelets. She is also received 2 units of FFP (7) Sepsis: Code(s): A41.9 - Sepsis, unspecified organism Status: Acute Assessment and Plan: Sepsis likely secondary to pneumonia which could be aspiration Blood cultures grew Staph hominis which is likely contaminant. Will discontinue vancomycin On IV Zosyn UA and micro also suggestive UTI. Urine cultures pending (8) Anemia: Code(s): D64.9 - Anemia, unspecified Status: Acute Assessment and Plan: Likely multifactorial anemia from iron deficiency and anemia of chronic kidney disease along with acute blood loss Patient received a dose of iron And she has received for units of PRBC. Hemoglobin appears to have stabilized Monitor and transfuse additional if needed Management of GI bleeding as above Neupogen per Nephrology (9) Thrombocytopenia: Code(s): D69.6 - Thrombocytopenia, unspecified Status: Acute Assessment and Plan: Thrombocytopenia likely combination of sepsis and cirrhosis. 01/20 Platelet transfusion Will repeat CBC later this afternoon hold any anticoagulation (10) Alcohol abuse: Code(s): F10.10 - Alcohol abuse, uncomplicated Status: Acute Assessment and Plan: History of alcohol abuse. At this time patient is sedated with Versed and fentanyl. Continue thiamine and folic acid (11) Severe protein-calorie malnutrition: Code(s): E43 - Unspecified severe protein-calorie malnutrition Status: Acute Assessment and Plan: Appears well nourished and cachectic. Patient was NPO due to GI bleed. Now on tube feeds. (12) Acetabular fracture: Qualifiers: Encounter type: initial encounter Fracture alignment: nondisplaced Fracture type: closed Laterality: right Sublocation of acetabulum: unspecified portion of acetabulum Qualified Code(s): S32.401A - Unspecified fracture of right acetabulum, initial encounter for closed fracture Code(s): S32.409A - Unspecified fracture of unspecified acetabulum, initial encounter for closed fracture Status: Acute Assessment and Plan: Orthopedics consulted. Obtain records from [facility], [place], [facility] (13) Distal radial fracture: Qualifiers: Encounter type: subsequent encounter Fracture type: closed Fracture morphology: unspecified fracture morphology Laterality: left Fracture healing: with nonunion Qualified Code(s): S52.502K - Unspecified fracture of the lower end of left radius, subsequent encounter for closed fracture with nonunion Code(s): S52.509A - Unspecified fracture of the lower end of unspecified radius, initial encounter for closed fracture Status: Acute Assessment and Plan: Currently in splint. Orthopedics consulted Subjective Date/time seen: 01/24/25 14:15 Interval history: Patient was briefly extubated this morning. Patient was reintubated within 45 minutes of extubation Review of Systems Review of Systems: ROS unobtainable: Yes unobtainable due to endotracheal tube, unobtainable due to medical condition and unobtainable due to mental status Exam Narrative: General: Pt is cachectic old female who looks much older than her age. She is Sedated, intubated and on mechanical ventilation Lungs/Chest: Trachea central Coarse BS B/L, No crackles or wheezing. Overall decreased air movement throughout lungs with barrel chest Cardiac: RRR. Normal S1 S2. No murmurs Circulation: Pedal pulses are intact and symmetrical. Abdomen: Decreased bowel sounds.. Soft. NT. ND. Extremities: No clubbing, cyanosis or edema. Feet are cold : Mclean in place Neurologic: Off sedation. She is awake and and nodes are head to questions, she appears weak but does move all 4 extremities and follows commands. PERRL Skin: Petechia on the chest Objective Data Vital Signs Vital Signs: Vital Signs - 24 hr 01/23/25 14:23 01/23/25 14:27 01/23/25 14:28 Temperature 102.5 F H Pulse Rate 90 90 Respiratory Rate Blood Pressure Pulse Oximetry 93 Oxygen Delivery Mechanical Ventilation Oxygen Flow Rate Fraction of Inspired Oxygen 30 01/23/25 15:07 01/23/25 16:00 01/23/25 16:00 Temperature Pulse Rate 78 74 Respiratory Rate Blood Pressure Pulse Oximetry 94 Oxygen Delivery Mechanical Ventilation Oxygen Flow Rate Fraction of Inspired Oxygen 30 30 01/23/25 16:00 01/23/25 16:00 01/23/25 16:52 Temperature 101.0 F H Pulse Rate 75 74 Respiratory Rate 19 Blood Pressure 123/79 Pulse Oximetry 94 93 94 Oxygen Delivery Mechanical Ventilation Mechanical Ventilation Oxygen Flow Rate Fraction of Inspired Oxygen 30 30 01/23/25 18:00 01/23/25 18:00 01/23/25 20:00 Temperature 99.9 F H 99.6 F Pulse Rate 74 74 74 Respiratory Rate 18 16 Blood Pressure 139/90 145/89 H Pulse Oximetry 95 98 Oxygen Delivery Oxygen Flow Rate Fraction of Inspired Oxygen 01/23/25 20:00 01/23/25 20:00 01/23/25 20:00 Temperature Pulse Rate 74 Respiratory Rate Blood Pressure Pulse Oximetry 97 Oxygen Delivery Mechanical Ventilation Oxygen Flow Rate Fraction of Inspired Oxygen 30 30 01/23/25 20:08 01/23/25 21:20 01/23/25 22:00 Temperature 99.0 F Pulse Rate 74 75 69 Respiratory Rate 12 Blood Pressure 153/97 H Pulse Oximetry 96 97 Oxygen Delivery Mechanical Ventilation Oxygen Flow Rate Fraction of Inspired Oxygen 30 01/23/25 22:00 01/23/25 23:22 01/24/25 00:00 Temperature 98.7 F Pulse Rate 67 73 73 Respiratory Rate 17 Blood Pressure 155/87 H Pulse Oximetry 97 97 Oxygen Delivery Mechanical Ventilation Oxygen Flow Rate Fraction of Inspired Oxygen 30 01/24/25 00:00 01/24/25 00:00 01/24/25 00:00 Temperature Pulse Rate 72 Respiratory Rate Blood Pressure Pulse Oximetry 95 Oxygen Delivery Mechanical Ventilation Oxygen Flow Rate Fraction of Inspired Oxygen 30 30 01/24/25 01:34 01/24/25 02:12 01/24/25 02:12 Temperature 98.0 F Pulse Rate 71 68 68 Respiratory Rate 16 Blood Pressure 160/101 H Pulse Oximetry 96 Oxygen Delivery Oxygen Flow Rate Fraction of Inspired Oxygen 01/24/25 04:00 01/24/25 04:00 01/24/25 04:00 Temperature 97.7 F Pulse Rate 68 66 Respiratory Rate 16 Blood Pressure 172/107 H Pulse Oximetry 99 99 Oxygen Delivery Mechanical Ventilation Oxygen Flow Rate Fraction of Inspired Oxygen 30 01/24/25 04:00 01/24/25 05:19 01/24/25 06:00 Temperature Pulse Rate 67 71 Respiratory Rate Blood Pressure Pulse Oximetry 97 Oxygen Delivery Mechanical Ventilation Oxygen Flow Rate Fraction of Inspired Oxygen 30 30 01/24/25 06:00 01/24/25 07:34 01/24/25 08:00 Temperature 97.1 F L Pulse Rate 71 64 Respiratory Rate 23 H Blood Pressure 134/83 Pulse Oximetry 99 96 Oxygen Delivery Mechanical Ventilation Oxygen Flow Rate Fraction of Inspired Oxygen 30 30 01/24/25 08:00 01/24/25 08:00 01/24/25 09:00 Temperature Pulse Rate 69 77 Respiratory Rate Blood Pressure Pulse Oximetry 93 Oxygen Delivery Mechanical Ventilation Oxygen Flow Rate Fraction of Inspired Oxygen 30 01/24/25 09:05 01/24/25 09:20 01/24/25 09:50 Temperature Pulse Rate 75 71 Respiratory Rate 40 H Blood Pressure Pulse Oximetry 92 95 95 Oxygen Delivery Nasal Cannula BiPAP Mechanical Ventilation Oxygen Flow Rate 3 Fraction of Inspired Oxygen 36 01/24/25 09:52 01/24/25 10:00 01/24/25 10:00 Temperature 96.9 F L Pulse Rate 76 71 71 Respiratory Rate 24 H 16 Blood Pressure 137/88 Pulse Oximetry 100 Oxygen Delivery Oxygen Flow Rate Fraction of Inspired Oxygen 01/24/25 10:04 01/24/25 10:28 01/24/25 10:41 Temperature Pulse Rate 72 69 71 Respiratory Rate 15 14 15 Blood Pressure Pulse Oximetry Oxygen Delivery Oxygen Flow Rate Fraction of Inspired Oxygen 01/24/25 11:00 01/24/25 11:56 01/24/25 12:00 Temperature 97.0 F L Pulse Rate 71 68 68 Respiratory Rate 19 15 Blood Pressure 129/81 Pulse Oximetry 94 95 Oxygen Delivery Mechanical Ventilation Oxygen Flow Rate Fraction of Inspired Oxygen 36 01/24/25 12:00 01/24/25 12:00 01/24/25 12:00 Temperature 96.8 F L Pulse Rate 68 68 Respiratory Rate 15 Blood Pressure 128/89 Pulse Oximetry 95 Oxygen Delivery Mechanical Ventilation Oxygen Flow Rate Fraction of Inspired Oxygen 36 01/24/25 12:00 01/24/25 13:00 Temperature 97.2 F L Pulse Rate 69 Respiratory Rate 15 Blood Pressure 126/85 Pulse Oximetry 96 Oxygen Delivery Oxygen Flow Rate Fraction of Inspired Oxygen 36 Intake/Output Intake/Output: Intake & Output 01/21/25 01/22/25 01/23/25 01/24/25 23:59 23:59 23:59 23:59 Intake Total 2602 1028 806.2 1646.0 Output Total 1300 3175 3100 825 Balance 1302 -2147 -2293.8 821.0 Meds/Results Medications: Active Medications Generic Name Dose Route Start Last Admin Trade Name Freq PRN Reason Stop Dose Admin Acetaminophen 650 mg 01/23/25 14:11 08/23/25 18:43 Acetaminophen 325 Mg Tablet FEED TUBE 650 mg Q4H PRN Administration Fever 1-3 Dextrose 12.5 gm 01/20/25 08:23 Dextrose 50% 25 Gm/50 Ml Syringe IV PUSH PRN PRN Hypoglycemia Protocol Epoetin Emil-epbx 10,000 units 01/23/25 09:00 01/23/25 09:44 Epoetin Emil-Epbx 10,000 Units/Ml Vial SUB-Q 10,000 units TUTHSA@09 MEENA Administration Folic Acid 1 mg 01/20/25 09:00 01/24/25 08:19 Folic Acid 1 Mg/0.2 Ml Inj IV PUSH 1 mg QAM MEENA Administration Glucagon 1 mg 01/20/25 08:23 Glucagon For Inj 1 Mg Vial IM PRN PRN Hypoglycemia Protocol Glucose 15 gm 01/20/25 08:23 Glucose Oral Gel 15 Gm Of Glucse In 37.5 Gm Tube PO PRN PRN Hypoglycemia Protocol Hydralazine HCl 20 mg 01/24/25 03:34 01/24/25 04:52 Hydralazine Hcl 20 Mg/Ml Vial IV PUSH 20 mg Q4H PRN Administration Hypertension Dextrose 1,000 mls @ 100 mls/hr 01/20/25 08:23 Dextrose 5% 1,000 Ml IVPB PRN PRN Hypoglycemia Protocol Piperacillin Sod/Tazobactam 50 mls @ 100 mls/hr 01/21/25 08:00 01/24/25 09:10 Sod 2.25 gm/ Sodium Chloride IVPB Infused Q8H [facility] Infusion Propofol 100 mls @ 2.664 mls/hr 01/24/25 09:45 01/24/25 12:00 Diprivan IV CONT 10 mcg/kg/min .[id number] MEENA 2.66 mls/hr Protocol Titration 10 MCG/KG/MIN Insulin Aspart 3 - 6 units 01/20/25 12:00 01/24/25 11:23 Insulin Aspart (*Bkc) 100 Units/Ml SUB-Q Not Given Q6HR [facility] Protocol Labetalol HCl 20 mg 01/23/25 09:31 01/24/25 01:34 Labetalol Hcl Inj 100 Mg/20 Ml Vial IV PUSH 20 mg Q4H PRN Administration SBP > 160 and HR> 60 -1st choice Multi-Ingred Cream/Lotion/Oil/Oint 1 applic 01/22/25 21:00 01/24/25 08:12 Mineral Oil/White Petrolatum Ointment EACH EYE Not Given Q12HR MEENA Mupirocin 1 applic 01/20/25 09:00 01/24/25 08:12 Mupirocin 2% Oint 22 Gm Tube EACH NARE 01/24/25 21:01 1 applic Q12HR MEENA Administration Pantoprazole Sodium 40 mg 01/21/25 09:00 01/24/25 08:11 Pantoprazole Sodium Iv 40 Mg Vial IV PUSH 40 mg Q12HR MEENA Administration Sodium Chloride 10 ml 01/20/25 06:00 01/24/25 13:05 Central Line Flush IV PUSH 10 ml Q8HR MEENA Administration Sodium Chloride 20 ml 01/20/25 01:15 01/24/25 04:56 Central Line Flush IV PUSH 20 ml PRN PRN Administration after blood draws Thiamine HCl 100 mg 01/20/25 09:00 01/24/25 08:12 Thiamine Hcl 200 Mg/2 Ml Vial IV PUSH 100 mg QAM MEENA Administration Radiology Results: ITS Impressions Abdomen X-Ray 01/20/25 05:42 Impression: NG tube in satisfactory position. Small left pleural effusion. Chest/Abdomen/Pelvis CT 01/20/25 05:48 Impression: Moderate to large left pleural effusion with extensive left lower lobe atelectasis. Small right pleural effusion. 9 mm spiculated nodule in the right lower lobe, as detailed above, indeterminate. CT scan in 3 months advised. Consider PET/CT or attempted tissue sampling as indicated. Moderate emphysema. No definite evidence for GI bleed, but evaluation is limited without IV contrast and with oral contrast on board. Consider follow-up CT angiogram of the bowel to further evaluate for GI bleed, as indicated. Moderate abdominopelvic ascites. T12 compression fracture, somewhat age indeterminate, but new since 06/20/2024. Fractures of the right anterior acetabulum at the junction of the right superior pubic ramus and of the right inferior pubic ramus, acute to subacute in nature. Head CT 01/20/25 06:13 Impression: No intracranial hemorrhage, mass, or acute infarct. Atrophy and chronic white matter changes, as above. Wrist X-Ray 01/20/25 06:13 Impression: Probable chronic fracture deformities of the distal radius and ulnar styloid process, as detailed above. No definite acute fracture. Renal Ultrasound 01/21/25 08:42 IMPRESSION: 1. Medical renal disease. 2. Mild bilateral hydronephrosis. No nephrolithiasis. Chest X-Ray 01/24/25 10:07 Impression: 1: Retrocardiac consolidation which may represent atelectasis and/or pneumonia. 2: Nodular opacity overlying the right mid thorax, not definitely seen on prior studies, most likely prominent nipple shadow. Recommend attention to this on subsequent examinations. Retrocardiac consolidation. Hip/Pelvis X-Ray 01/24/25 11:12 Impression: 1: Healing right acetabular and inferior pubic rami fractures with callus formation. Labs Labs: Laboratory Results - last 24 hr 01/23/25 01/23/25 01/24/25 18:14 23:58 04:53 WBC 9.6 RBC 3.49 L Hgb 10.2 L Hct 33.0 L MCV 94.6 MCH 29.2 MCHC 30.9 L RDW 18.2 H Plt Count 39 L MPV 10.5 H % Immature Plt Fraction 3.3 Puncture Site ABG pH ABG pCO2 ABG pO2 ABG PO2/FiO2 Ratio ABG HCO3 ABG O2 Saturation ABG O2 Content ABG Base Excess A-a Gradient Oxyhemoglobin Carboxyhemoglobin Methemoglobin Reduced Hemoglobin Total Hemoglobin O2 Delivery Device O2 Liters/Min Minute Volume Vent Rate Vent Mode FiO2 Tidal Volume PEEP Peak Inspir Pressure Pressure Support Sodium 143 Potassium 3.5 Chloride 104 Carbon Dioxide 29 Anion Gap 10 BUN 84 H Creatinine 2.40 H Estim Creat Clear Calc 16 Estimated GFR 21 L Glucose 127 H POC Capillary Glucose 147 H 137 H Calcium 7.9 L Phosphorus 1.3 L Magnesium 1.4 L Total Bilirubin 1.2 AST 26 ALT 32 Alkaline Phosphatase 63 Total Protein 4.9 L Albumin 3.0 L Triglycerides 65 01/24/25 01/24/25 05:01 11:20 WBC RBC Hgb Hct MCV MCH MCHC RDW Plt Count MPV % Immature Plt Fraction Puncture Site Right radial ABG pH 7.524 H* ABG pCO2 33.9 L ABG pO2 76.4 L ABG PO2/FiO2 Ratio 2.55 ABG HCO3 27.3 H ABG O2 Saturation 96.6 ABG O2 Content 15.6 L ABG Base Excess 4.6 A-a Gradient 97.7 Oxyhemoglobin 95.3 Carboxyhemoglobin 0.9 Methemoglobin 0.1 Reduced Hemoglobin 3.7 Total Hemoglobin 11.6 L O2 Delivery Device Ventilator O2 Liters/Min Not Reportable Minute Volume Not Reportable Vent Rate 16 Vent Mode Cmv FiO2 30 Tidal Volume 320 PEEP 8 Peak Inspir Pressure Not Reportable Pressure Support Not Reportable Sodium Potassium Chloride Carbon Dioxide Anion Gap BUN Creatinine Estim Creat Clear Calc Estimated GFR Glucose POC Capillary Glucose 124 H Calcium Phosphorus Magnesium Total Bilirubin AST ALT Alkaline Phosphatase Total Protein Albumin Triglycerides Quality VTE Prophylaxis VTE prophylaxis: mechanical ordered Hospitalist MIPS Advance Care Plan I have confirmed that the patient's Advanced Care Plan is present, code status is documented, or surrogate decision maker is listed in patient medical record.: Yes Medication Reconciliation I have utilized all available resources to obtain, update and review the patients current medications (includes all prescriptions, OTC, herbals, cannabis, and nutritional supplements).: Yes
[2025-01-24] MEDS: PIPERACILLIN/TAZOBACTAM SOD 2.25 GM in SODIUM CHLORIDE 0.9% IV 50 ML 100 ML IVPB (17:01)
--- NOTE | 2025-01-24 18:29 | PC.NURSE ---
Lab attempted to get blood draw. Failed on the first stick. Patient refused to allow anymore attempts at this time.
--- NOTE | 2025-01-24 18:43 | PCRCNOTE ---
Dr. Beltran agreed to not have a repeat ABG drawn when the intial sample was unsuccessfully processed this morning, 01/24/25. Order was attempted to be discontinued. Dr Beltran aware.
[2025-01-24] MEDS: MINERAL OIL/WHITE PETROLATUM OINTMENT 1 APPLIC EACH EYE (22:15)
[2025-01-25] VITALS (25 sets, daily range): BP systolic 143–164; BP diastolic 91–107; PULSE 20–87; RESP 12–22; TEMP 36.9–37.9; O2SAT 95–98
[2025-01-25] MEDS: PIPERACILLIN/TAZOBACTAM SOD 2.25 GM in SODIUM CHLORIDE 0.9% IV 50 ML 100 ML IVPB ×3 (01:00→16:30)
[2025-01-25 04:55] LABS: Alveolar/Arterial O2 Gradient 91.9 mmHg; Carboxyhemoglobin 0.9 % THb (0-2.0); Fractional Inspired Oxygen 36 %; HCO3 ABG 29.9 mEq/l (22.0-26.0); Methemoglobin ABG 0.1 %THb (0-1.5); Oxygen Content ABG 17.3 %vol (16.0-22.0); Oxygen Saturation ABG 98.2 % (95.0-100.0); PCO2 ABG 45.8 mmHg (35.0-45.0); PO2 ABG 111.7 mmHg (80.0-100.0); PO2 FiO2 Ratio Arterial Blood 3.10 %; Reduced Hemoglobin 1.7 %THb (0-5.0)
[2025-01-25 04:57] LABS: Modified Allen's Test Pass; Site Drawn RIGHT RADIAL
[2025-01-25 04:58] LABS: Arterial Blood Gas Tidal Volume 320 ml; Arterial Blood Gas Ventilator rate 14 /MIN
[2025-01-25 06:11] LABS: Hematocrit 37.1 % (37.0-47.0); Hemoglobin 11.3 g/dL (12.0-15.0); Immature Platelet Fraction Pct 3.7 % (0.9-11.2); Mean Corpuscular HGB Conc 30.5 g/dl (32-36); Mean Corpuscular Hemoglobin 29.4 pg (26-34); Mean Corpuscular Volume 96.6 fl (80-100); Platelet Count Result 42 k/mm3 (150-375); Red Blood Count 3.84 M/mm3 (4.2-5.4); White Blood Count 8.4 K/mm3 (4.5-10.0)
[2025-01-25 06:31] LABS: Alanine Aminotransferase 31 U/L (6-35); Albumin Level 3.2 g/dL (3.5-5.1); Alkaline Phosphatase 67 U/L (38-126); Anion Gap 9 mmol/L (4-12); Aspartate Amino Transferase 31 U/L (14-36); Bilirubin,Total 1.0 mg/dL (0.2-1.3); Blood Urea Nitrogen 78 mg/dL (7-17); Calcium 8.2 mg/dL (8.4-10.2); Carbon Dioxide 32 mmol/L (22-30); Chloride 105 mmol/L (98-107); Estimated CRCL calculation 15 ml/min; Estimated Glomerular Filt Rate 20; Glucose 119 mg/dL (65-110); Magnesium 1.6 mg/dL (1.6-2.3); Potassium 3.9 mmol/L (3.4-5.0); Sodium 146 mmol/L (137-145); Total Protein 5.5 g/dL (6.3-8.2)
[2025-01-25] MEDS: CENTRAL LINE FLUSH 10 ML IV PUSH ×2 (07:21→15:09)
--- NOTE | 2025-01-25 08:11 | P.PNINT_ITS ---
Progress Note: A&P Assessment and Plan (1) Acute hypoxic respiratory failure: Code(s): J96.01 - Acute respiratory failure with hypoxia Status: Acute Assessment and Plan: Acute respiratory failure secondary to aspiration pneumonia pleural effusion upper GI bleed with underlying COPD 01/23 SBT was done and patient had at could RSBI and ABG but patient was not awake enough. Patient is not extubated due to concern of inability to protect airway once extubated. Imaging reviewed suggest mild pulmonary edema or volume overload. ARDS and pneumonia also possibility patient was given diuretics with good urine output 01/24 Patient was trialed in the morning. She did okay with borderline but acceptable RSBI. Patient was awake and following commands we decided to extubate and give patient an opportunity. She does have history of COPD. Post extubation patient was tachypneic. I placed on BiPAP but her tachypnea and work of breathing kept on getting worse and she started complaining of feeling short of breath. Decision was made to reintubate patient. Patient was agreeable and patient was reintubated without any major complications. Patient was extubated yesterday after a successful weaning trial. Patient Ventilator settings reviewed patient is on CMV Currently at a rate of 14, PEEP to 8, FiO2 is at 35 %. Change PEEP to 5 chest x-ray and ABG reviewed Continue p.r.n. bronchodilator will try PSV again today (2) Acute upper GI bleeding: Code(s): K92.2 - Gastrointestinal hemorrhage, unspecified Status: Acute Assessment and Plan: Acute upper GI bleed 01/20 EGD showed reflux esophagitis and hiatal hernia Status post transfusion of multiple units of PRBC Coagulopathy cryo FFP Hemoglobin appears to be now stable. I will continue monitoring hemoglobin and transfuse additional PRBC if needed continue IV PPI. Octreotide was discontinued GI following (3) Transaminitis: Code(s): R74.01 - Elevation of levels of liver transaminase levels Status: Acute Assessment and Plan: AST and ALT mildly elevated likely consistent with alcoholic liver disease. Hepatitis C antibody screen is positive. RNA quantitative is [id number] (4) Alcoholic cirrhosis of liver with ascites: Code(s): K70.31 - Alcoholic cirrhosis of liver with ascites Status: Acute Assessment and Plan: Patient has cirrhosis from alcohol liver disease with CT scan showing ascites (5) Acute kidney injury superimposed on stage 4 chronic kidney disease: Code(s): N17.9 - Acute kidney failure, unspecified; N18.4 - Chronic kidney disease, stage 4 (severe) Status: Acute Assessment and Plan: Baseline creatinine in mid 2 Patient was given IV fluids but now off due to concern of volume overload and patient has also received significant amount of blood products. Creatinine improved to 2.40 Monitor urine output electrolytes and creatinine CT scans not show any obstruction or stone Renal ultrasound showed mild bilateral hydronephrosis without any stones Nephrology consulted and following. Patient may need renal replacement therapy if renal function deteriorates Continue diuretics for volume overload. She has had good urine output in response to Lasix Replace potassium, phosphate and calcium (6) Coagulopathy: Code(s): D68.9 - Coagulation defect, unspecified Status: Acute Assessment and Plan: Coagulopathy secondary to cirrhosis and sepsis Patient received cryo and platelets. She is also received 2 units of FFP (7) Sepsis: Code(s): A41.9 - Sepsis, unspecified organism Status: Acute Assessment and Plan: Sepsis likely secondary to pneumonia which could be aspiration Blood cultures grew Staph hominis which is likely contaminant. Will discontinue vancomycin On IV Zosyn UA and micro also suggestive UTI. Urine cultures pending (8) Anemia: Code(s): D64.9 - Anemia, unspecified Status: Acute Assessment and Plan: Likely multifactorial anemia from iron deficiency and anemia of chronic kidney disease along with acute blood loss Patient received a dose of iron And she has received for units of PRBC. Hemoglobin appears to have stabilized Monitor and transfuse additional if needed Management of GI bleeding as above Neupogen per Nephrology (9) Thrombocytopenia: Code(s): D69.6 - Thrombocytopenia, unspecified Status: Acute Assessment and Plan: Thrombocytopenia likely combination of sepsis and cirrhosis. 01/20 Platelet transfusion Will repeat CBC later this afternoon hold any anticoagulation (10) Alcohol abuse: Code(s): F10.10 - Alcohol abuse, uncomplicated Status: Acute Assessment and Plan: History of alcohol abuse. At this time patient is sedated with Versed and fentanyl. Continue thiamine and folic acid (11) Severe protein-calorie malnutrition: Code(s): E43 - Unspecified severe protein-calorie malnutrition Status: Acute Assessment and Plan: Appears well nourished and cachectic. Patient was NPO due to GI bleed. Now on tube feeds. (12) Acetabular fracture: Qualifiers: Encounter type: initial encounter Fracture alignment: nondisplaced Fracture type: closed Laterality: right Sublocation of acetabulum: unspecified portion of acetabulum Qualified Code(s): S32.401A - Unspecified fracture of right acetabulum, initial encounter for closed fracture Code(s): S32.409A - Unspecified fracture of unspecified acetabulum, initial encounter for closed fracture Status: Acute Assessment and Plan: Orthopedics evaluate the patient . No further recommendations at this time (13) Distal radial fracture: Qualifiers: Encounter type: subsequent encounter Fracture type: closed Fracture morphology: unspecified fracture morphology Laterality: left Fracture healing: with nonunion Qualified Code(s): S52.502K - Unspecified fracture of the lower end of left radius, subsequent encounter for closed fracture with nonunion Code(s): S52.509A - Unspecified fracture of the lower end of unspecified radius, initial encounter for closed fracture Status: Acute Assessment and Plan: seen by orthopedics. Splint removed as per recommendations. Plan DVT prophylaxis -SCDs Stress ulcer prophylaxis -Protonix IV Nutrition -continue tube feeds Code Status - Full Code Total Critical Care Time - 30 minutes Due to a high probability of clinically significant, life threatening deterioration, the patient required my highest level of preparedness to intervene emergently and I personally spent this critical care time directly and personally managing the patient. This critical care time included obtaining a history; examining the patient; pulse oximetry; ordering and review of studies; arranging urgent treatment with development of a management plan; evaluation of patient's response to treatment; frequent reassessment; and discussions with other providers. It was exclusive of separately billable procedures and treating other patients and teaching time. Please see Assessment and Plan section and the rest of the note for further information on patient assessment and treatment Subjective Date/time seen: 01/25/25 Overnight events reviewed. Patient was extubated yesterday after a successful weaning trial. Patient failed and had to be reintubated Continues to be on mechanical ventilation 36% FiO2 and 8 of PEEP sedated with low-dose propofol tolerating tube feeds . Blood pressure elevated but other Vitals acceptable good urine output Review of Systems Review of Systems: ROS unobtainable: Yes unobtainable due to endotracheal tube, unobtainable due to medical condition and unobtainable due to mental status Exam Narrative: General: Pt is cachectic old female who looks much older than her age. She is Sedated, intubated and on mechanical ventilation Lungs/Chest: Trachea central Coarse BS B/L, No crackles or wheezing. Overall decreased air movement throughout lungs with barrel chest Cardiac: RRR. Normal S1 S2. No murmurs Circulation: Pedal pulses are intact and symmetrical. Abdomen: Decreased bowel sounds.. Soft. NT. ND. Extremities: No clubbing, cyanosis or edema. Feet are cold : Mclean in place Neurologic: on low-dose propofol for sedation. on holding sedation she awake and and nodes are head to questions, she appears weak but does move all 4 extremities and follows commands. PERRL Skin: Petechia on the chest Objective Data Vital Signs Vital Signs: Vital Signs - 24 hr 01/24/25 09:00 01/24/25 09:05 01/24/25 09:20 Temperature Pulse Rate 77 75 Respiratory Rate 40 H Blood Pressure Pulse Oximetry 93 92 95 Oxygen Delivery Nasal Cannula BiPAP Oxygen Flow Rate 3 Fraction of Inspired Oxygen 01/24/25 09:50 01/24/25 09:52 01/24/25 10:00 Temperature Pulse Rate 71 76 71 Respiratory Rate 24 H Blood Pressure Pulse Oximetry 95 Oxygen Delivery Mechanical Ventilation Oxygen Flow Rate Fraction of Inspired Oxygen 36 01/24/25 10:00 01/24/25 10:04 01/24/25 10:28 Temperature 36.1 C L Pulse Rate 71 72 69 Respiratory Rate 16 15 14 Blood Pressure 137/88 Pulse Oximetry 100 Oxygen Delivery Oxygen Flow Rate Fraction of Inspired Oxygen 01/24/25 10:41 01/24/25 11:00 01/24/25 11:56 Temperature 36.1 C L Pulse Rate 71 71 68 Respiratory Rate 15 19 Blood Pressure 129/81 Pulse Oximetry 94 95 Oxygen Delivery Mechanical Ventilation Oxygen Flow Rate Fraction of Inspired Oxygen 36 01/24/25 12:00 01/24/25 12:00 01/24/25 12:00 Temperature 36.0 C L Pulse Rate 68 68 68 Respiratory Rate 15 15 Blood Pressure 128/89 Pulse Oximetry 95 Oxygen Delivery Oxygen Flow Rate Fraction of Inspired Oxygen 01/24/25 12:00 01/24/25 12:00 01/24/25 13:00 Temperature 36.2 C L Pulse Rate 69 Respiratory Rate 15 Blood Pressure 126/85 Pulse Oximetry 96 Oxygen Delivery Mechanical Ventilation Oxygen Flow Rate Fraction of Inspired Oxygen 36 36 01/24/25 14:00 01/24/25 14:00 01/24/25 14:00 Temperature 36.3 C L Pulse Rate 70 70 70 Respiratory Rate 15 15 Blood Pressure 118/82 Pulse Oximetry 95 Oxygen Delivery Oxygen Flow Rate Fraction of Inspired Oxygen 01/24/25 14:00 01/24/25 15:00 01/24/25 16:00 Temperature 36.5 C 36.7 C Pulse Rate 68 71 70 Respiratory Rate 14 14 Blood Pressure 138/89 130/85 Pulse Oximetry 95 96 95 Oxygen Delivery Mechanical Ventilation Oxygen Flow Rate Fraction of Inspired Oxygen 36 01/24/25 16:00 01/24/25 16:00 01/24/25 16:00 Temperature Pulse Rate 72 72 Respiratory Rate 16 Blood Pressure Pulse Oximetry Oxygen Delivery Mechanical Ventilation Oxygen Flow Rate Fraction of Inspired Oxygen 36 01/24/25 16:00 01/24/25 17:00 01/24/25 17:16 Temperature 36.9 C Pulse Rate 74 71 Respiratory Rate 14 Blood Pressure 142/89 H Pulse Oximetry 97 99 Oxygen Delivery Mechanical Ventilation Oxygen Flow Rate Fraction of Inspired Oxygen 36 36 01/24/25 18:00 01/24/25 18:00 01/24/25 18:00 Temperature 37.0 C Pulse Rate 73 73 73 Respiratory Rate 15 15 Blood Pressure 145/90 H Pulse Oximetry 97 Oxygen Delivery Oxygen Flow Rate Fraction of Inspired Oxygen 01/24/25 19:00 01/24/25 20:00 01/24/25 20:00 Temperature 37.1 C 37.3 C Pulse Rate 75 77 78 Respiratory Rate 19 18 18 Blood Pressure 148/93 H 152/95 H Pulse Oximetry 96 97 97 Oxygen Delivery Mechanical Ventilation Oxygen Flow Rate Fraction of Inspired Oxygen 35 01/24/25 20:00 01/24/25 20:00 01/24/25 20:00 Temperature Pulse Rate 78 77 Respiratory Rate 16 Blood Pressure Pulse Oximetry Oxygen Delivery Oxygen Flow Rate Fraction of Inspired Oxygen 35 01/24/25 20:22 01/24/25 21:00 01/24/25 22:00 Temperature 37.4 C 37.6 C Pulse Rate 77 78 78 Respiratory Rate 19 18 Blood Pressure 151/96 H 158/96 H Pulse Oximetry 99 97 97 Oxygen Delivery Mechanical Ventilation Oxygen Flow Rate Fraction of Inspired Oxygen 35 01/24/25 22:00 01/24/25 22:00 01/24/25 22:41 Temperature Pulse Rate 81 81 80 Respiratory Rate 16 Blood Pressure Pulse Oximetry 97 Oxygen Delivery Mechanical Ventilation Oxygen Flow Rate Fraction of Inspired Oxygen 35 01/24/25 23:00 01/24/25 23:15 01/24/25 23:58 Temperature 37.7 C H 37.7 C H Pulse Rate 81 80 82 Respiratory Rate 17 16 16 Blood Pressure 161/102 H 154/94 H Pulse Oximetry 96 96 96 Oxygen Delivery Mechanical Ventilation Oxygen Flow Rate Fraction of Inspired Oxygen 35 01/24/25 23:59 01/24/25 23:59 01/25/25 00:00 Temperature Pulse Rate 82 78 Respiratory Rate 16 Blood Pressure Pulse Oximetry Oxygen Delivery Oxygen Flow Rate Fraction of Inspired Oxygen 35 01/25/25 01:28 01/25/25 02:00 01/25/25 02:04 Temperature 37.9 C H Pulse Rate 84 76 74 Respiratory Rate 14 Blood Pressure 147/100 H Pulse Oximetry 98 97 Oxygen Delivery Mechanical Ventilation Oxygen Flow Rate Fraction of Inspired Oxygen 35 01/25/25 04:00 01/25/25 04:00 01/25/25 04:00 Temperature 37.9 C H Pulse Rate 78 77 77 Respiratory Rate 22 H 22 H Blood Pressure 155/98 H Pulse Oximetry 97 95 Oxygen Delivery Mechanical Ventilation Oxygen Flow Rate Fraction of Inspired Oxygen 35 01/25/25 04:00 01/25/25 04:00 01/25/25 04:59 Temperature Pulse Rate 87 78 Respiratory Rate 16 Blood Pressure Pulse Oximetry 95 Oxygen Delivery Mechanical Ventilation Oxygen Flow Rate Fraction of Inspired Oxygen 35 35 01/25/25 06:00 01/25/25 06:00 01/25/25 06:03 Temperature 37.3 C Pulse Rate 77 79 77 Respiratory Rate 16 22 H Blood Pressure 158/100 H Pulse Oximetry 95 Oxygen Delivery Oxygen Flow Rate Fraction of Inspired Oxygen 01/25/25 08:00 Temperature Pulse Rate 80 Respiratory Rate Blood Pressure Pulse Oximetry 95 Oxygen Delivery Mechanical Ventilation Oxygen Flow Rate Fraction of Inspired Oxygen 36 Intake/Output Intake/Output: Intake & Output 01/22/25 01/23/25 01/24/25 01/25/25 23:59 23:59 23:59 23:59 Intake Total 1028 806.2 2010.5 71.2 Output Total 3175 3100 1475 400 Balance -2147 -2293.8 535.5 -328.8 Meds/Results Medications: Active Medications Generic Name Dose Route Start Last Admin Trade Name Luigiq PRN Reason Stop Dose Admin Acetaminophen 650 mg 01/23/25 14:11 01/23/25 18:43 Acetaminophen 325 Mg Tablet FEED TUBE 650 mg Q4H PRN Administration Fever 1-3 Amlodipine Besylate 5 mg 01/25/25 09:00 Amlodipine Besylate 5 Mg Tablet FEED TUBE DAILY MEENA Dextrose 12.5 gm 01/20/25 08:23 Dextrose 50% 25 Gm/50 Ml Syringe IV PUSH PRN PRN Hypoglycemia Protocol Epoetin Emil-epbx 10,000 units 01/23/25 09:00 01/23/25 09:44 Epoetin Emil-Epbx 10,000 Units/Ml Vial SUB-Q 10,000 units TUTHSA@09 MEENA Administration Folic Acid 1 mg 01/20/25 09:00 01/24/25 08:19 Folic Acid 1 Mg/0.2 Ml Inj IV PUSH 1 mg QAM MEENA Administration Glucagon 1 mg 01/20/25 08:23 Glucagon For Inj 1 Mg Vial IM PRN PRN Hypoglycemia Protocol Glucose 15 gm 01/20/25 08:23 Glucose Oral Gel 15 Gm Of Glucse In 37.5 Gm Tube PO PRN PRN Hypoglycemia Protocol Hydralazine HCl 20 mg 01/24/25 03:34 01/24/25 04:52 Hydralazine Hcl 20 Mg/Ml Vial IV PUSH 20 mg Q4H PRN Administration Hypertension Dextrose 1,000 mls @ 100 mls/hr 01/20/25 08:23 Dextrose 5% 1,000 Ml IVPB PRN PRN Hypoglycemia Protocol Piperacillin Sod/Tazobactam 50 mls @ 100 mls/hr 01/21/25 08:00 01/25/25 01:30 Sod 2.25 gm/ Sodium Chloride IVPB Infused Q8H MEENA Infusion Propofol 100 mls @ 2.664 mls/hr 01/24/25 09:45 01/25/25 06:00 Diprivan IV CONT 10 mcg/kg/min .[id number] MEENA 2.66 mls/hr Protocol Titration 10 MCG/KG/MIN Potassium Phosphate 15 mmol/ 255 mls @ 63.75 mls/hr 01/25/25 08:00 Sodium Chloride IVPB 01/25/25 11:59 ONCE ONE Calcium Gluconate 2,000 mg in 100 mls @ 100 mls/hr 01/25/25 08:00 Calcium Gluc 2,000 Mg/Ns 100ml IVPB 01/25/25 08:59 ONCE ONE Insulin Aspart 3 - 6 units 01/20/25 12:00 01/25/25 07:21 Insulin Aspart (*Bkc) 100 Units/Ml SUB-Q Not Given Q6HR [facility] Protocol Labetalol HCl 20 mg 01/23/25 09:31 01/24/25 01:34 Labetalol Hcl Inj 100 Mg/20 Ml Vial IV PUSH 20 mg Q4H PRN Administration SBP > 160 and HR> 60 -1st choice Multi-Ingred Cream/Lotion/Oil/Oint 1 applic 01/22/25 21:00 01/24/25 22:15 Mineral Oil/White Petrolatum Ointment EACH EYE 1 applic Q12HR MEENA Administration Pantoprazole Sodium 40 mg 01/21/25 09:00 01/24/25 22:16 Pantoprazole Sodium Iv 40 Mg Vial IV PUSH 40 mg Q12HR MEENA Administration Sodium Chloride 10 ml 01/20/25 06:00 01/25/25 07:21 Central Line Flush IV PUSH 10 ml Q8HR MEENA Administration Sodium Chloride 20 ml 01/20/25 01:15 01/24/25 04:56 Central Line Flush IV PUSH 20 ml PRN PRN Administration after blood draws Thiamine HCl 100 mg 01/20/25 09:00 01/24/25 08:12 Thiamine Hcl 200 Mg/2 Ml Vial IV PUSH 100 mg QAM MEENA Administration Radiology Results: ITS Impressions Abdomen X-Ray 01/20/25 05:42 Impression: NG tube in satisfactory position. Small left pleural effusion. Chest/Abdomen/Pelvis CT 01/20/25 05:48 Impression: Moderate to large left pleural effusion with extensive left lower lobe atelectasis. Small right pleural effusion. 9 mm spiculated nodule in the right lower lobe, as detailed above, indeterminate. CT scan in 3 months advised. Consider PET/CT or attempted tissue sampling as indicated. Moderate emphysema. No definite evidence for GI bleed, but evaluation is limited without IV contrast and with oral contrast on board. Consider follow-up CT angiogram of the bowel to further evaluate for GI bleed, as indicated. Moderate abdominopelvic ascites. T12 compression fracture, somewhat age indeterminate, but new since 06/20/2024. Fractures of the right anterior acetabulum at the junction of the right superior pubic ramus and of the right inferior pubic ramus, acute to subacute in nature. Head CT 01/20/25 06:13 Impression: No intracranial hemorrhage, mass, or acute infarct. Atrophy and chronic white matter changes, as above. Wrist X-Ray 01/20/25 06:13 Impression: Probable chronic fracture deformities of the distal radius and ulnar styloid process, as detailed above. No definite acute fracture. Renal Ultrasound 01/21/25 08:42 IMPRESSION: 1. Medical renal disease. 2. Mild bilateral hydronephrosis. No nephrolithiasis. Hip/Pelvis X-Ray 01/24/25 11:12 Impression: 1: Healing right acetabular and inferior pubic rami fractures with callus formation. Chest X-Ray 01/25/25 07:16 Impression: 1: Borderline heart size with mild interstitial edema. 2: Retrocardiac opacification, most likely atelectasis. Labs Labs: Laboratory Results - last 24 hr 01/24/25 01/24/25 01/24/25 04:53 11:20 17:08 WBC RBC Hgb Hct MCV MCH MCHC RDW Plt Count MPV % Immature Plt Fraction Puncture Site ABG pH ABG pCO2 ABG pO2 ABG PO2/FiO2 Ratio ABG HCO3 ABG O2 Saturation ABG O2 Content ABG Base Excess A-a Gradient Oxyhemoglobin Carboxyhemoglobin Methemoglobin Reduced Hemoglobin Total Hemoglobin O2 Delivery Device O2 Liters/Min Minute Volume Vent Rate Vent Mode FiO2 Tidal Volume PEEP Peak Inspir Pressure Pressure Support Sodium Potassium Chloride Carbon Dioxide Anion Gap BUN Creatinine Estim Creat Clear Calc Estimated GFR Glucose POC Capillary Glucose 124 H 125 H Calcium Phosphorus Magnesium Total Bilirubin AST ALT Alkaline Phosphatase Total Protein Albumin Triglycerides 65 01/25/25 01/25/25 01/25/25 04:46 05:59 06:00 WBC 8.4 RBC 3.84 L Hgb 11.3 L Hct 37.1 MCV 96.6 MCH 29.4 MCHC 30.5 L RDW 19.2 H Plt Count 42 L MPV 11.4 H % Immature Plt Fraction 3.7 Puncture Site Right radial ABG pH 7.433 ABG pCO2 45.8 H ABG pO2 111.7 H ABG PO2/FiO2 Ratio 3.10 ABG HCO3 29.9 H ABG O2 Saturation 98.2 ABG O2 Content 17.3 ABG Base Excess 4.9 A-a Gradient 91.9 Oxyhemoglobin 97.3 Carboxyhemoglobin 0.9 Methemoglobin 0.1 Reduced Hemoglobin 1.7 Total Hemoglobin 12.5 O2 Delivery Device Ventilator O2 Liters/Min Not Reportable Minute Volume Not Reportable Vent Rate 14 Vent Mode Cmv FiO2 36 Tidal Volume 320 PEEP 8 Peak Inspir Pressure Not Reportable Pressure Support Not Reportable Sodium 146 H Potassium 3.9 Chloride 105 Carbon Dioxide 32 H Anion Gap 9 BUN 78 H Creatinine 2.41 H Estim Creat Clear Calc 15 Estimated GFR 20 L Glucose 119 H POC Capillary Glucose Calcium 8.2 L Phosphorus < 1.0 L Magnesium 1.6 Total Bilirubin 1.0 AST 31 ALT 31 Alkaline Phosphatase 67 Total Protein 5.5 L Albumin 3.2 L Triglycerides Quality VTE Prophylaxis VTE prophylaxis: mechanical ordered
[2025-01-25] MEDS: POTASSIUM/PHOSPHORUS/SODIUM 1.5 GM PACKET 1 PACKET FEED TUBE (08:25)
[2025-01-25] MEDS: POTASSIUM PHOS,M-BASIC-D-BASIC 15 MMOL in SODIUM CHLORIDE 0.9% IV 250 ML 63.75 MMOL IVPB (08:25)
[2025-01-25] MEDS: PANTOPRAZOLE SODIUM IV 40 MG VIAL IV PUSH ×2 (08:26→22:44)
[2025-01-25] MEDS: FOLIC ACID 1 MG/0.2 ML INJ IV PUSH (08:26)
[2025-01-25] MEDS: THIAMINE HCL 200 MG/2 ML VIAL 100 MG IV PUSH (08:26)
[2025-01-25] MEDS: MINERAL OIL/WHITE PETROLATUM OINTMENT 1 APPLIC EACH EYE ×2 (08:26→22:44)
[2025-01-25] MEDS: CALCIUM GLUC 2,000 MG/NS 100ML 2,000 MG/100 ML BAG 100 MG IVPB (08:44)
--- NOTE | 2025-01-25 10:29 | PCFNICU ---
ICU Rounding Note: Pt current nutrition is Nepro @ 40 ml/h with flushes 75 ml q 4 h . Nutrition recommendation: Continue with current tube feeding order with no changes Last recorded weight is 40.7 kg. Bowel Motility: +2 BMs 01/24, +1 BM 01/25 Labs Reviewed: Hgb 11.3, Hct 3.2, Na 146, BUN 78, Cre 2.41, PO4 <1 Meds Noted: Thiamine 100 mg, folic acid, protonix, propofol @ 2.66 ml/h= 70 kcal. Skin: No skin issues Additional Notes: Pt had a drop in PO4; could be refeeding syndrome as she is severely malnourished. Getting recommended amount of thiamine (100 mg/d) for refeeding syndrome. Hypophosphatemia can also be be result of other patient conditions including some renal disease; alcohol withdrawal; and cirrhosis. Nepro @ 40 ml/h provides 1584 kcal, 71 g protein, 640 ml free water. Meeting needs @ 38 kcal/g, 1.7 g protein/kg. Adequate for needs. Following daily in ICU rounds. Will monitor weight, labs, skin, diet orders, meds every Saturday and Saturday. .
--- NOTE | 2025-01-25 11:18 | P.PNNP_ITS ---
Progress Note: A&P Assessment and Plan (1) Acute kidney injury: Code(s): N17.9 - Acute kidney failure, unspecified Status: Acute Assessment and Plan: * relatively stable if not better * as noted on admission (creatinine of 3.43mg/dl) * likely due to multiple issues: * prerenal factors (poor nutrition) * anemia/GI bleed * infection/sepsis (+ blood cultures) * respiratory failure * hypoxia * liver disease/cirrhosis * progression of underlying CKD * other(?) * evaluation to date noted: * renal ultrasound with CKD and mild bilateral hydronephrosis - mcqueen cathter placed * urine electrolytes prerenal - suspect due to a combination of poor oral intake AND liver disease/physiology (decreased effective circulating volume) * urine eosinophils negative * CPK low * ~ 2 grams of proteinuria * maintain hemodynamics and H/H as tolerated * noted reasonable urine output with IV diuretic use * follow trend of repeat labs and UOP (2) Stage 4 chronic kidney disease: Code(s): N18.4 - Chronic kidney disease, stage 4 (severe) Status: Chronic Assessment and Plan: * not entirely clear what baseline creatinine really is.... * was noted to be ~ 1.4 - 1.6mg/dl in June 2024 * however, since December 2024, has been running ~ 2.4 - 2.6mg/dl (from record review from [facility]) * most recent labs done on 01/15/25 -- creatinine up to 2.79mg/dl (ER visit at [facility] prior to leaving [place]) (3) Acute upper GI bleeding: Code(s): K92.2 - Gastrointestinal hemorrhage, unspecified Status: Acute Assessment and Plan: * suspected based on admission events/presentation * GI following * s/p EGD (on 01/20): * noted erosive esophagitis but no varices or bleeding lesions noted * PRBC transfusion per protocol * corrected coagulopathy * IV PPI * follow trend on H/H (4) Acute hypoxic respiratory failure: Code(s): J96.01 - Acute respiratory failure with hypoxia Status: Acute Assessment and Plan: * multifactorial: * inability to protect airway * aspiration pneumonia * pleural effusions * suspected upper GI bleed * complicated by underlying COPD * imaging noted * IV diuretics PRN for fluid overload (follow CXR results) * failed trial of extubation (on 01/24) * continue ventilator support (5) Sepsis: Code(s): A41.9 - Sepsis, unspecified organism Status: Acute Assessment and Plan: * possibly from pneumonia (aspiration) versus UTI * follow culture data: * blood cultures (from 01/20): Staphylococcus hominis (suspect contamination) * urine culture - no growth to date * on antibiotics * stable hemodynamics noted * follow repeat cultures (6) Anemia: Code(s): D64.9 - Anemia, unspecified Status: Acute Assessment and Plan: * due to several issues: * due to underlying CKD * iron deficiency * #3 - GI following * liver disease * coagulopathy * other * PRBC transfusion as needed * Epogen while hospitalized * follow trend of H/H (7) Coagulopathy: Code(s): D68.9 - Coagulation defect, unspecified Status: Acute Assessment and Plan: * porbably secondary to liver cirrhosis * complicated by thrombocytopenia also related to liver disease * s/p cryoprecipitate, platelets, and FFP transfusion * follow INR (8) Alcoholic cirrhosis of liver with ascites: Code(s): K70.31 - Alcoholic cirrhosis of liver with ascites Status: Acute Assessment and Plan: * as evidence by admission CT/imaging findings * presumably partly related to alcohol intake * GI following (9) Transaminitis: Code(s): R74.01 - Elevation of levels of liver transaminase levels Status: Acute Assessment and Plan: * noted by admission labs * suspect secondary to/consistent with with alcoholic liver disease. * hepatitis panel noted (10) Acetabular fracture: Qualifiers: Encounter type: initial encounter Fracture alignment: nondisplaced F racture type: closed Laterality: right Sublocation of acetabulum: unspecified portion of acetabulum Qualified Code(s): S32.401A - Unspecified fracture of right acetabulum, initial encounter for closed fracture Code(s): S32.409A - Unspecified fracture of unspecified acetabulum, initial encounter for closed fracture Status: Acute Assessment and Plan: * as noted by admission CT imaging: * fractures of the right anterior acetabulum at the junction of the right superior pubic ramus and of the right inferior pubic ramus, acute to subacute in nature * Orthopedic Surgery recommendations * repeat imaging X-rays noted: Healing right acetabular and inferior pubic rami fractures with callus formation (11) Distal radial fracture: Qualifiers: Encounter type: subsequent encounter Fracture healing: with nonunion F racture morphology: unspecified fracture morphology Fracture type: closed L aterality: left Qualified Code(s): S52.502K - Unspecified fracture of the lower end of left radius, subsequent encounter for closed fracture with nonunion Code(s): S52.509A - Unspecified fracture of the lower end of unspecified radius, initial encounter for closed fracture Status: Acute Assessment and Plan: * apparently chronic in nature by X-rays * Orthopedic Surgery recommendations reviewed (12) Alcohol abuse: Code(s): F10.10 - Alcohol abuse, uncomplicated Status: Acute Assessment and Plan: * known history * on IV thiamine and folate Will continue to follow. L Subjective Date/time seen: 01/25/25 11:18 Interval history: Follow-up for acute kidney injury/acute renal failure on chronic kidney disease. Re-intubated yesterday after failed trial of extubation; remains intubated/sedated and on mechanical ventilation; remains hemodynamically stable (if not a bit hypertensive at times); renal function/creatinine relatively stable with good urine output noted; no apparent distress noted when seen. Exam 2 Narrative: General: chronically ill-appearing/cachectic female intubated/sedated & on mechanical ventilation Heart: normal S1 and S2; no rub Lungs: coarse breath sounds; decreased throughout Abdomen: soft, nontender, nondistended, positive bowel sounds Extremities: no cyanosis or clubbing; trace edema Skin: no rash Objective Data Vital Signs Vital Signs: Vital Signs Temp Pulse Resp BP Pulse Ox O2 Del Method FiO2 01/25/25 11:08 75 96 Mechanical Ventilation 36 01/25/25 11:06 146/97 H 01/25/25 10:50 164/107 H 01/25/25 10:43 20 L 01/25/25 10:00 83 01/25/25 08:00 73 14 01/25/25 08:00 35 01/25/25 08:00 80 01/25/25 08:00 80 20 95 Mechanical Ventilation 35 01/25/25 08:00 80 95 Mechanical Ventilation 36 01/25/25 06:03 99.2 F 77 22 H 158/100 H 95 01/25/25 06:00 79 16 01/25/25 06:00 77 01/25/25 04:59 78 95 Mechanical Ventilation 35 01/25/25 04:00 87 16 01/25/25 04:00 35 01/25/25 04:00 77 01/25/25 04:00 77 22 H 95 Mechanical Ventilation 35 01/25/25 04:00 100.2 F H 78 22 H 155/98 H 97 01/25/25 02:04 100.2 F H 74 14 147/100 H 97 01/25/25 02:00 76 01/25/25 01:28 84 98 Mechanical Ventilation 35 01/25/25 00:00 78 16 01/24/25 23:59 35 01/24/25 23:59 82 01/24/25 23:58 82 16 96 Mechanical Ventilation 35 01/24/25 23:15 99.9 F H 80 16 154/94 H 96 01/24/25 23:00 99.9 F H 81 17 161/102 H 96 01/24/25 22:41 80 97 Mechanical Ventilation 35 01/24/25 22:00 81 16 01/24/25 22:00 81 01/24/25 22:00 99.6 F 78 18 158/96 H 97 01/24/25 21:00 99.4 F 78 19 151/96 H 97 01/24/25 20:22 77 99 Mechanical Ventilation 35 01/24/25 20:00 77 16 01/24/25 20:00 35 01/24/25 20:00 78 01/24/25 20:00 78 18 97 Mechanical Ventilation 35 01/24/25 20:00 99.1 F 77 18 152/95 H 97 01/24/25 19:00 98.8 F 75 19 148/93 H 96 01/24/25 18:00 98.6 F 73 15 145/90 H 97 01/24/25 18:00 73 01/24/25 18:00 73 15 01/24/25 17:16 71 99 Mechanical Ventilation 36 01/24/25 17:00 98.5 F 74 14 142/89 H 97 01/24/25 16:00 36 01/24/25 16:00 Mechanical Ventilation 36 01/24/25 16:00 72 16 01/24/25 16:00 72 01/24/25 16:00 98.1 F 70 14 130/85 95 01/24/25 15:00 97.7 F 71 14 138/89 96 08/24/25 14:00 68 95 Mechanical Ventilation 36 01/24/25 14:00 97.4 F L 70 15 118/82 95 01/24/25 14:00 70 01/24/25 14:00 70 15 01/24/25 13:00 97.2 F L 69 15 126/85 96 Intake/Output Intake/Output: Intake & Output 01/22/25 01/23/25 01/24/25 01/25/25 23:59 23:59 23:59 23:59 Intake Total 1028 806.2 2010.5 226.5 Output Total 3175 3100 1475 400 Balance -2147 -2293.8 535.5 -173.5 Meds/Results Medications: Active Medications Generic Name Dose Route Start Last Admin Trade Name Freq PRN Reason Stop Dose Admin Acetaminophen 650 mg 01/23/25 14:11 01/23/25 18:43 Acetaminophen 325 Mg Tablet FEED TUBE 650 mg Q4H PRN Administration Fever 1-3 Amlodipine Besylate 5 mg 01/25/25 09:00 01/25/25 08:26 Amlodipine Besylate 5 Mg Tablet FEED TUBE 5 mg DAILY MEENA Administration Dextrose 12.5 gm 01/20/25 08:23 Dextrose 50% 25 Gm/50 Ml Syringe IV PUSH PRN PRN Hypoglycemia Protocol Epoetin Emil-epbx 10,000 units 01/23/25 09:00 01/23/25 09:44 Epoetin Emil-Epbx 10,000 Units/Ml Vial SUB-Q 10,000 units TUTHSA@09 MEENA Administration Folic Acid 1 mg 01/20/25 09:00 01/25/25 08:26 Folic Acid 1 Mg/0.2 Ml Inj IV PUSH 1 mg QAM MEENA Administration Glucagon 1 mg 01/20/25 08:23 Glucagon For Inj 1 Mg Vial IM PRN PRN Hypoglycemia Protocol Glucose 15 gm 01/20/25 08:23 Glucose Oral Gel 15 Gm Of Glucse In 37.5 Gm Tube PO PRN PRN Hypoglycemia Protocol Hydralazine HCl 20 mg 01/24/25 03:34 01/24/25 04:52 Hydralazine Hcl 20 Mg/Ml Vial IV PUSH 20 mg Q4H PRN Administration Hypertension Dextrose 1,000 mls @ 100 mls/hr 01/20/25 08:23 Dextrose 5% 1,000 Ml IVPB PRN PRN Hypoglycemia Protocol Piperacillin Sod/Tazobactam 50 mls @ 100 mls/hr 01/21/25 08:00 01/25/25 08:55 Sod 2.25 gm/ Sodium Chloride IVPB 01/28/25 07:59 Infused Q8H MEENA Infusion Propofol 100 mls @ 2.664 mls/hr 01/24/25 09:45 01/25/25 08:00 Diprivan IV CONT Infused .[id number] MEENA Titration Protocol 10 MCG/KG/MIN Insulin Aspart 3 - 6 units 01/20/25 12:00 01/25/25 07:21 Insulin Aspart (*Bkc) 100 Units/Ml SUB-Q Not Given Q6HR MEENA Protocol Labetalol HCl 20 mg 01/23/25 09:31 01/25/25 10:43 Labetalol Hcl Inj 100 Mg/20 Ml Vial IV PUSH 20 mg Q4H PRN Administration SBP > 160 and HR> 60 -1st choice Multi-Ingred Cream/Lotion/Oil/Oint 1 applic 01/22/25 21:00 01/25/25 08:26 Mineral Oil/White Petrolatum Ointment EACH EYE 1 applic Q12HR MEENA Administration Pantoprazole Sodium 40 mg 01/21/25 09:00 01/25/25 08:26 Pantoprazole Sodium Iv 40 Mg Vial IV PUSH 40 mg Q12HR MEENA Administration Sodium Chloride 10 ml 01/20/25 06:00 01/25/25 07:21 Central Line Flush IV PUSH 10 ml Q8HR MEENA Administration Sodium Chloride 20 ml 01/20/25 01:15 01/24/25 04:56 Central Line Flush IV PUSH 20 ml PRN PRN Administration after blood draws Thiamine HCl 100 mg 01/20/25 09:00 01/25/25 08:26 Thiamine Hcl 200 Mg/2 Ml Vial IV PUSH 100 mg QAM MEENA Administration Radiology Results: ITS Impressions Abdomen X-Ray 01/20/25 05:42 Impression: NG tube in satisfactory position. Small left pleural effusion. Chest/Abdomen/Pelvis CT 01/20/25 05:48 Impression: Moderate to large left pleural effusion with extensive left lower lobe atelectasis. Small right pleural effusion. 9 mm spiculated nodule in the right lower lobe, as detailed above, indeterminate. CT scan in 3 months advised. Consider PET/CT or attempted tissue sampling as indicated. Moderate emphysema. No definite evidence for GI bleed, but evaluation is limited without IV contrast and with oral contrast on board. Consider follow-up CT angiogram of the bowel to further evaluate for GI bleed, as indicated. Moderate abdominopelvic ascites. T12 compression fracture, somewhat age indeterminate, but new since 06/20/2024. Fractures of the right anterior acetabulum at the junction of the right superior pubic ramus and of the right inferior pubic ramus, acute to subacute in nature. Head CT 01/20/25 06:13 Impression: No intracranial hemorrhage, mass, or acute infarct. Atrophy and chronic white matter changes, as above. Wrist X-Ray 01/20/25 06:13 Impression: Probable chronic fracture deformities of the distal radius and ulnar styloid process, as detailed above. No definite acute fracture. Renal Ultrasound 01/21/25 08:42 IMPRESSION: 1. Medical renal disease. 2. Mild bilateral hydronephrosis. No nephrolithiasis. Hip/Pelvis X-Ray 01/24/25 11:12 Impression: 1: Healing right acetabular and inferior pubic rami fractures with callus formation. Chest X-Ray 01/25/25 07:16 Impression: 1: Borderline heart size with mild interstitial edema. 2: Retrocardiac opacification, most likely atelectasis. Labs Labs: Laboratory Tests 01/25/25 05:59 01/25/25 06:00 Calcium 8.2 L Phosphorus < 1.0 L Magnesium 1.6 Total Bilirubin 1.0 AST 31 ALT 31 Alkaline Phosphatase 67 Total Protein 5.5 L Albumin 3.2 L
--- NOTE | 2025-01-25 15:30 | P.PNIM_ITS ---
Progress Note: A&P Assessment and Plan (1) Acute upper GI bleeding: Code(s): K92.2 - Gastrointestinal hemorrhage, unspecified Status: Acute Assessment and Plan: Acute upper GI bleed 01/20 EGD showed reflux esophagitis and hiatal hernia Status post transfusion of multiple units of PRBC Coagulopathy cryo FFP Hemoglobin appears to be now stable. continue IV PPI. Octreotide was discontinued GI following Continue to monitor H&H (2) Transaminitis: Code(s): R74.01 - Elevation of levels of liver transaminase levels Status: Acute Assessment and Plan: AST and ALT mildly elevated likely consistent with alcoholic liver disease. Hepatitis C antibody screen is positive. RNA quantitative is [id number] Need follow-up as an outpatient basis for hepatitis C infection (3) Alcoholic cirrhosis of liver with ascites: Code(s): K70.31 - Alcoholic cirrhosis of liver with ascites Status: Acute Assessment and Plan: Patient has cirrhosis from alcohol liver disease with CT scan showing ascites (4) Acute kidney injury superimposed on stage 4 chronic kidney disease: Code(s): N17.9 - Acute kidney failure, unspecified; N18.4 - Chronic kidney disease, stage 4 (severe) Status: Acute Assessment and Plan: Baseline creatinine in mid 2 Patient was given IV fluids but now off due to concern of volume overload and patient has also received significant amount of blood products. Creatinine improved to 2.40 Monitor urine output electrolytes and creatinine CT scans not show any obstruction or stone Renal ultrasound showed mild bilateral hydronephrosis without any stones Nephrology consulted and following. Patient may need renal replacement therapy if renal function deteriorates Continue diuretics for volume overload. She has had good urine output in response to Lasix Replace lytes (5) Acute hypoxic respiratory failure: Code(s): J96.01 - Acute respiratory failure with hypoxia Status: Acute Assessment and Plan: Acute respiratory failure secondary to aspiration pneumonia pleural effusion upper GI bleed with underlying COPD Ventilator settings reviewed per manager of disaster recovery Imaging reviewed suggest mild pulmonary edema or volume overload. ARDS and pneumonia also possibility patient was given diuretics with good urine output Continue [place] bronchodilator 01/23 SBT was done and patient had at could RSBI and ABG but patient was not awake enough. Patient is not extubated due to concern of inability to protect airway once extubated. 01/24 patient placed on PSV SBT. And extubated however needed to be reintubated. (6) Coagulopathy: Code(s): D68.9 - Coagulation defect, unspecified Status: Acute Assessment and Plan: Coagulopathy secondary to cirrhosis and sepsis Patient received cryo and platelets. She is also received 2 units of FFP (7) Sepsis: Code(s): A41.9 - Sepsis, unspecified organism Status: Acute Assessment and Plan: Sepsis likely secondary to pneumonia which could be aspiration Blood cultures grew Staph hominis which is likely contaminant. Will discontinue vancomycin On IV Zosyn UA and micro also suggestive UTI. Urine cultures pending (8) Anemia: Code(s): D64.9 - Anemia, unspecified Status: Acute Assessment and Plan: Likely multifactorial anemia from iron deficiency and anemia of chronic kidney disease along with acute blood loss Patient received a dose of iron And she has received for units of PRBC. Hemoglobin appears to have stabilized Monitor and transfuse additional if needed Management of GI bleeding as above Neupogen per Nephrology (9) Thrombocytopenia: Code(s): D69.6 - Thrombocytopenia, unspecified Status: Acute Assessment and Plan: Thrombocytopenia likely combination of sepsis and cirrhosis. 01/20 Platelet transfusion (10) Alcohol abuse: Code(s): F10.10 - Alcohol abuse, uncomplicated Status: Acute Assessment and Plan: History of alcohol abuse. At this time patient is sedated with Versed and fentanyl. Continue thiamine and folic acid (11) Severe protein-calorie malnutrition: Code(s): E43 - Unspecified severe protein-calorie malnutrition Status: Acute Assessment and Plan: Appears well nourished and cachectic. Patient was NPO due to GI bleed. Now on tube feeds. (12) Acetabular fracture: Qualifiers: Encounter type: initial encounter Fracture alignment: nondisplaced Fracture type: closed Laterality: right Sublocation of acetabulum: unspecified portion of acetabulum Qualified Code(s): S32.401A - Unspecified fracture of right acetabulum, initial encounter for closed fracture Code(s): S32.409A - Unspecified fracture of unspecified acetabulum, initial encounter for closed fracture Status: Acute Assessment and Plan: Orthopedics consulted. Obtain records from [facility], [place], [facility] Repeat hip x-ray with healing right staff further and inferior pubic rami fractures with callus formation Delete (13) Distal radial fracture: Qualifiers: Encounter type: subsequent encounter Fracture type: closed Fracture morphology: unspecified fracture morphology Laterality: left Fracture healing: with nonunion Qualified Code(s): S52.502K - Unspecified fracture of the lower end of left radius, subsequent encounter for closed fracture with nonunion Code(s): S52.509A - Unspecified fracture of the lower end of unspecified radius, initial encounter for closed fracture Status: Acute Assessment and Plan: Currently in splint. Orthopedics consulted Subjective Date/time seen: 01/25/25 15:30 Interval history: Patient was extubated yesterday and was placed on BiPAP eventually got worse and had to be reintubated. Patient going on a wean trial again today. Discussed with nursing staff. Review of Systems Review of Systems: ROS unobtainable: Yes unobtainable due to endotracheal tube Exam Narrative: General: Pt is cachectic old female who looks much older than her age. Sedated and on vent Lungs/Chest: Trachea central Coarse BS B/L, No crackles or wheezing. Delete Cardiac: RRR. Normal S1 S2. No murmurs Circulation: Pedal pulses are intact and symmetrical. Abdomen: Decreased bowel sounds.. Soft. NT. ND. Extremities: No clubbing, cyanosis or edema. Feet are cold : Mclean in place Neurologic: Sedated Skin: Petechia on the chest Objective Data Vital Signs Vital Signs: Vital Signs - 24 hr 01/24/25 16:00 01/24/25 16:00 01/24/25 16:00 Temperature 98.1 F Pulse Rate 70 72 72 Respiratory Rate 14 16 Blood Pressure 130/85 Pulse Oximetry 95 Oxygen Delivery Fraction of Inspired Oxygen 01/24/25 16:00 01/24/25 16:00 01/24/25 17:00 Temperature 98.5 F Pulse Rate 74 Respiratory Rate 14 Blood Pressure 142/89 H Pulse Oximetry 97 Oxygen Delivery Mechanical Ventilation Fraction of Inspired Oxygen 36 36 01/24/25 17:16 01/24/25 18:00 01/24/25 18:00 Temperature Pulse Rate 71 73 73 Respiratory Rate 15 Blood Pressure Pulse Oximetry 99 Oxygen Delivery Mechanical Ventilation Fraction of Inspired Oxygen 36 01/24/25 18:00 01/24/25 19:00 01/24/25 20:00 Temperature 98.6 F 98.8 F 99.1 F Pulse Rate 73 75 77 Respiratory Rate 15 19 18 Blood Pressure 145/90 H 148/93 H 152/95 H Pulse Oximetry 97 96 97 Oxygen Delivery Fraction of Inspired Oxygen 08/24/25 20:00 01/24/25 20:00 01/24/25 20:00 Temperature Pulse Rate 78 78 Respiratory Rate 18 Blood Pressure Pulse Oximetry 97 Oxygen Delivery Mechanical Ventilation Fraction of Inspired Oxygen 35 35 01/24/25 20:00 01/24/25 20:22 01/24/25 21:00 Temperature 99.4 F Pulse Rate 77 77 78 Respiratory Rate 16 19 Blood Pressure 151/96 H Pulse Oximetry 99 97 Oxygen Delivery Mechanical Ventilation Fraction of Inspired Oxygen 35 01/24/25 22:00 01/24/25 22:00 01/24/25 22:00 Temperature 99.6 F Pulse Rate 78 81 81 Respiratory Rate 18 16 Blood Pressure 158/96 H Pulse Oximetry 97 Oxygen Delivery Fraction of Inspired Oxygen 01/24/25 22:41 01/24/25 23:00 01/24/25 23:15 Temperature 99.9 F H 99.9 F H Pulse Rate 80 81 80 Respiratory Rate 17 16 Blood Pressure 161/102 H 154/94 H Pulse Oximetry 97 96 96 Oxygen Delivery Mechanical Ventilation Fraction of Inspired Oxygen 35 01/24/25 23:58 01/24/25 23:59 01/24/25 23:59 Temperature Pulse Rate 82 82 Respiratory Rate 16 Blood Pressure Pulse Oximetry 96 Oxygen Delivery Mechanical Ventilation Fraction of Inspired Oxygen 35 35 01/25/25 00:00 01/25/25 01:28 01/25/25 02:00 Temperature Pulse Rate 78 84 76 Respiratory Rate 16 Blood Pressure Pulse Oximetry 98 Oxygen Delivery Mechanical Ventilation Fraction of Inspired Oxygen 35 01/25/25 02:04 01/25/25 04:00 01/25/25 04:00 Temperature 100.2 F H 100.2 F H Pulse Rate 74 78 77 Respiratory Rate 14 22 H 22 H Blood Pressure 147/100 H 155/98 H Pulse Oximetry 97 97 95 Oxygen Delivery Mechanical Ventilation Fraction of Inspired Oxygen 35 01/25/25 04:00 01/25/25 04:00 01/25/25 04:00 Temperature Pulse Rate 77 87 Respiratory Rate 16 Blood Pressure Pulse Oximetry Oxygen Delivery Fraction of Inspired Oxygen 35 01/25/25 04:59 01/25/25 06:00 01/25/25 06:00 Temperature Pulse Rate 78 77 79 Respiratory Rate 16 Blood Pressure Pulse Oximetry 95 Oxygen Delivery Mechanical Ventilation Fraction of Inspired Oxygen 35 01/25/25 06:03 01/25/25 08:00 01/25/25 08:00 Temperature 99.2 F Pulse Rate 77 80 80 Respiratory Rate 22 H 20 Blood Pressure 158/100 H Pulse Oximetry 95 95 95 Oxygen Delivery Mechanical Ventilation Mechanical Ventilation Fraction of Inspired Oxygen 36 35 01/25/25 08:00 01/25/25 08:00 01/25/25 08:00 Temperature Pulse Rate 80 73 Respiratory Rate 14 Blood Pressure Pulse Oximetry Oxygen Delivery Fraction of Inspired Oxygen 35 01/25/25 10:00 01/25/25 10:43 01/25/25 10:50 Temperature Pulse Rate 83 20 L Respiratory Rate Blood Pressure 164/107 H Pulse Oximetry Oxygen Delivery Fraction of Inspired Oxygen 01/25/25 11:06 01/25/25 11:08 01/25/25 11:26 Temperature Pulse Rate 75 Respiratory Rate Blood Pressure 146/97 H Pulse Oximetry 96 Oxygen Delivery Mechanical Ventilation Fraction of Inspired Oxygen 36 35 01/25/25 12:00 01/25/25 12:00 01/25/25 14:00 Temperature Pulse Rate 76 76 78 Respiratory Rate 12 Blood Pressure Pulse Oximetry 95 Oxygen Delivery Mechanical Ventilation Fraction of Inspired Oxygen 35 01/25/25 14:05 Temperature Pulse Rate 80 Respiratory Rate Blood Pressure Pulse Oximetry 98 Oxygen Delivery Mechanical Ventilation Fraction of Inspired Oxygen 36 Intake/Output Intake/Output: Intake & Output 01/22/25 01/23/25 01/24/25 01/25/25 23:59 23:59 23:59 23:59 Intake Total 1028 806.2 2010.5 226.5 Output Total 3175 3100 1475 400 Balance -2147 -2293.8 535.5 -173.5 Meds/Results Medications: Active Medications Generic Name Dose Route Start Last Admin Trade Name Freq PRN Reason Stop Dose Admin Acetaminophen 650 mg 01/23/25 14:11 01/23/25 18:43 Acetaminophen 325 Mg Tablet FEED TUBE 650 mg Q4H PRN Administration Fever 1-3 Amlodipine Besylate 5 mg 01/25/25 09:00 01/25/25 08:26 Amlodipine Besylate 5 Mg Tablet FEED TUBE 5 mg DAILY MEENA Administration Dextrose 12.5 gm 01/20/25 08:23 Dextrose 50% 25 Gm/50 Ml Syringe IV PUSH PRN PRN Hypoglycemia Protocol Epoetin Emil-epbx 10,000 units 01/23/25 09:00 01/23/25 09:44 Epoetin Emil-Epbx 10,000 Units/Ml Vial SUB-Q 10,000 units TUTHSA@09 MEENA Administration Folic Acid 1 mg 01/20/25 09:00 01/25/25 08:26 Folic Acid 1 Mg/0.2 Ml Inj IV PUSH 1 mg QAM MEENA Administration Glucagon 1 mg 01/20/25 08:23 Glucagon For Inj 1 Mg Vial IM PRN PRN Hypoglycemia Protocol Glucose 15 gm 01/20/25 08:23 Glucose Oral Gel 15 Gm Of Glucse In 37.5 Gm Tube PO PRN PRN Hypoglycemia Protocol Hydralazine HCl 20 mg 01/24/25 03:34 01/24/25 04:52 Hydralazine Hcl 20 Mg/Ml Vial IV PUSH 20 mg Q4H PRN Administration Hypertension Dextrose 1,000 mls @ 100 mls/hr 01/20/25 08:23 Dextrose 5% 1,000 Ml IVPB PRN PRN Hypoglycemia Protocol Piperacillin Sod/Tazobactam 50 mls @ 100 mls/hr 01/21/25 08:00 01/25/25 08:55 Sod 2.25 gm/ Sodium Chloride IVPB 01/28/25 07:59 Infused Q8H MEENA Infusion Propofol 100 mls @ 2.664 mls/hr 01/24/25 09:45 01/25/25 08:00 Diprivan IV CONT Infused .[id number] [facility] Titration Protocol 10 MCG/KG/MIN Insulin Aspart 3 - 6 units 01/20/25 12:00 01/25/25 12:36 Insulin Aspart (*Bkc) 100 Units/Ml SUB-Q Not Given Q6HR [facility] Protocol Labetalol HCl 20 mg 01/23/25 09:31 01/25/25 10:43 Labetalol Hcl Inj 100 Mg/20 Ml Vial IV PUSH 20 mg Q4H PRN Administration SBP > 160 and HR> 60 -1st choice Multi-Ingred Cream/Lotion/Oil/Oint 1 applic 01/22/25 21:00 01/25/25 08:26 Mineral Oil/White Petrolatum Ointment EACH EYE 1 applic Q12HR MEENA Administration Pantoprazole Sodium 40 mg 01/21/25 09:00 01/25/25 08:26 Pantoprazole Sodium Iv 40 Mg Vial IV PUSH 40 mg Q12HR MEENA Administration Sodium Chloride 10 ml 01/20/25 06:00 01/25/25 15:09 Central Line Flush IV PUSH 10 ml Q8HR MEENA Administration Sodium Chloride 20 ml 01/20/25 01:15 01/24/25 04:56 Central Line Flush IV PUSH 20 ml PRN PRN Administration after blood draws Thiamine HCl 100 mg 01/20/25 09:00 01/25/25 08:26 Thiamine Hcl 200 Mg/2 Ml Vial IV PUSH 100 mg QAM MEENA Administration Radiology Results: ITS Impressions Abdomen X-Ray 01/20/25 05:42 Impression: NG tube in satisfactory position. Small left pleural effusion. Chest/Abdomen/Pelvis CT 01/20/25 05:48 Impression: Moderate to large left pleural effusion with extensive left lower lobe atelectasis. Small right pleural effusion. 9 mm spiculated nodule in the right lower lobe, as detailed above, indeterminate. CT scan in 3 months advised. Consider PET/CT or attempted tissue sampling as indicated. Moderate emphysema. No definite evidence for GI bleed, but evaluation is limited without IV contrast and with oral contrast on board. Consider follow-up CT angiogram of the bowel to further evaluate for GI bleed, as indicated. Moderate abdominopelvic ascites. T12 compression fracture, somewhat age indeterminate, but new since 06/20/2024. Fractures of the right anterior acetabulum at the junction of the right superior pubic ramus and of the right inferior pubic ramus, acute to subacute in nature. Head CT 01/20/25 06:13 Impression: No intracranial hemorrhage, mass, or acute infarct. Atrophy and chronic white matter changes, as above. Wrist X-Ray 01/20/25 06:13 Impression: Probable chronic fracture deformities of the distal radius and ulnar styloid process, as detailed above. No definite acute fracture. Renal Ultrasound 01/21/25 08:42 IMPRESSION: 1. Medical renal disease. 2. Mild bilateral hydronephrosis. No nephrolithiasis. Hip/Pelvis X-Ray 01/24/25 11:12 Impression: 1: Healing right acetabular and inferior pubic rami fractures with callus formation. Chest X-Ray 01/25/25 07:16 Impression: 1: Borderline heart size with mild interstitial edema. 2: Retrocardiac opacification, most likely atelectasis. Labs Labs: Laboratory Results - last 24 hr 01/24/25 01/25/25 01/25/25 17:08 04:46 05:59 WBC 8.4 RBC 3.84 L Hgb 11.3 L Hct 37.1 MCV 96.6 MCH 29.4 MCHC 30.5 L RDW 19.2 H Plt Count 42 L MPV 11.4 H % Immature Plt Fraction 3.7 Puncture Site Right radial ABG pH 7.433 ABG pCO2 45.8 H ABG pO2 111.7 H ABG PO2/FiO2 Ratio 3.10 ABG HCO3 29.9 H ABG O2 Saturation 98.2 ABG O2 Content 17.3 ABG Base Excess 4.9 A-a Gradient 91.9 Oxyhemoglobin 97.3 Carboxyhemoglobin 0.9 Methemoglobin 0.1 Reduced Hemoglobin 1.7 Total Hemoglobin 12.5 O2 Delivery Device Ventilator O2 Liters/Min Not Reportable Minute Volume Not Reportable Vent Rate 14 Vent Mode Cmv FiO2 36 Tidal Volume 320 PEEP 8 Peak Inspir Pressure Not Reportable Pressure Support Not Reportable Sodium Potassium Chloride Carbon Dioxide Anion Gap BUN Creatinine Estim Creat Clear Calc Estimated GFR Glucose POC Capillary Glucose 125 H Calcium Phosphorus Magnesium Total Bilirubin AST ALT Alkaline Phosphatase Total Protein Albumin 01/25/25 01/25/25 06:00 11:46 WBC RBC Hgb Hct MCV MCH MCHC RDW Plt Count MPV % Immature Plt Fraction Puncture Site ABG pH ABG pCO2 ABG pO2 ABG PO2/FiO2 Ratio ABG HCO3 ABG O2 Saturation ABG O2 Content ABG Base Excess A-a Gradient Oxyhemoglobin Carboxyhemoglobin Methemoglobin Reduced Hemoglobin Total Hemoglobin O2 Delivery Device O2 Liters/Min Minute Volume Vent Rate Vent Mode FiO2 Tidal Volume PEEP Peak Inspir Pressure Pressure Support Sodium 146 H Potassium 3.9 Chloride 105 Carbon Dioxide 32 H Anion Gap 9 BUN 78 H Creatinine 2.41 H Estim Creat Clear Calc 15 Estimated GFR 20 L Glucose 119 H POC Capillary Glucose 103 Calcium 8.2 L Phosphorus < 1.0 L Magnesium 1.6 Total Bilirubin 1.0 AST 31 ALT 31 Alkaline Phosphatase 67 Total Protein 5.5 L Albumin 3.2 L
[2025-01-26] VITALS (26 sets, daily range): BP systolic 135–167; BP diastolic 92–113; PULSE 72–87; RESP 12–22; TEMP 36.6–37.2; O2SAT 94–100
[2025-01-26] MEDS: PIPERACILLIN/TAZOBACTAM SOD 2.25 GM in SODIUM CHLORIDE 0.9% IV 50 ML 100 ML IVPB ×3 (01:00→17:00)
[2025-01-26] MEDS: CENTRAL LINE FLUSH 10 ML IV PUSH ×4 (01:42→20:37)
[2025-01-26 04:51] LABS: Alveolar/Arterial O2 Gradient 94.2 mmHg; Carboxyhemoglobin 0.9 % THb (0-2.0); Fractional Inspired Oxygen 35 %; HCO3 ABG 29.6 mEq/l (22.0-26.0); Methemoglobin ABG 0.2 %THb (0-1.5); Oxygen Content ABG 17.2 %vol (16.0-22.0); Oxygen Saturation ABG 98.0 % (95.0-100.0); PCO2 ABG 43.7 mmHg (35.0-45.0); PO2 ABG 104.6 mmHg (80.0-100.0); PO2 FiO2 Ratio Arterial Blood 2.99 %; Reduced Hemoglobin 1.8 %THb (0-5.0)
[2025-01-26 04:53] LABS: Arterial Blood Gas Ventilator rate 14 /MIN; Modified Allen's Test Pass; Site Drawn RIGHT RADIAL
[2025-01-26 04:54] LABS: Arterial Blood Gas Tidal Volume 320 ml
[2025-01-26 05:22] LABS: Hematocrit 37.6 % (37.0-47.0); Hemoglobin 11.5 g/dL (12.0-15.0); Immature Platelet Fraction Pct 3.1 % (0.9-11.2); Mean Corpuscular HGB Conc 30.6 g/dl (32-36); Mean Corpuscular Hemoglobin 30.2 pg (26-34); Mean Corpuscular Volume 98.7 fl (80-100); Platelet Count Result 43 k/mm3 (150-375); Red Blood Count 3.81 M/mm3 (4.2-5.4); White Blood Count 7.9 K/mm3 (4.5-10.0)
[2025-01-26 05:37] LABS: Alanine Aminotransferase 28 U/L (6-35); Albumin Level 3.1 g/dL (3.5-5.1); Alkaline Phosphatase 73 U/L (38-126); Anion Gap 7 mmol/L (4-12); Aspartate Amino Transferase 33 U/L (14-36); Bilirubin,Total 0.9 mg/dL (0.2-1.3); Blood Urea Nitrogen 75 mg/dL (7-17); Calcium 8.0 mg/dL (8.4-10.2); Carbon Dioxide 29 mmol/L (22-30); Chloride 108 mmol/L (98-107); Estimated CRCL calculation 16 ml/min; Estimated Glomerular Filt Rate 23; Glucose 120 mg/dL (65-110); Magnesium 1.7 mg/dL (1.6-2.3); Potassium 3.7 mmol/L (3.4-5.0); Sodium 144 mmol/L (137-145); Total Protein 5.4 g/dL (6.3-8.2)
[2025-01-26 05:39] LABS: Triglycerides 100 mg/dL (<150)
--- NOTE | 2025-01-26 06:43 | PCRCNOTE ---
Found pt on CMV at start of shift.
[2025-01-26] MEDS: THIAMINE HCL 200 MG/2 ML VIAL 100 MG IV PUSH (08:20)
[2025-01-26] MEDS: POTASSIUM/PHOSPHORUS/SODIUM 1.5 GM PACKET 1 PACKET PO (08:20)
[2025-01-26] MEDS: FOLIC ACID 1 MG/0.2 ML INJ IV PUSH (08:20)
[2025-01-26] MEDS: PANTOPRAZOLE SODIUM IV 40 MG VIAL IV PUSH ×2 (08:20→20:36)
[2025-01-26] MEDS: EPOETIN ALFA-EPBX 10,000 UNITS/ML VIAL 10000 UNITS SUB-Q (08:20)
[2025-01-26 08:37] LABS: Hematocrit 37.8 % (37.0-47.0); Hemoglobin 11.4 g/dL (12.0-15.0); Immature Platelet Fraction Pct 3.0 % (0.9-11.2); Mean Corpuscular HGB Conc 30.2 g/dl (32-36); Mean Corpuscular Hemoglobin 29.4 pg (26-34); Mean Corpuscular Volume 97.4 fl (80-100); Platelet Count Result 41 k/mm3 (150-375); Red Blood Count 3.88 M/mm3 (4.2-5.4); White Blood Count 8.2 K/mm3 (4.5-10.0)
[2025-01-26 08:51] LABS: INR 1.1; Prothrombin Time 14.8 Seconds (11.1-14.7)
[2025-01-26 08:52] LABS: Fibrinogen 245 mg/dl (215-510); Partial Thromboplastin Time 34.2 Seconds (22.3-36.8)
--- NOTE | 2025-01-26 08:55 | PCRCNOTE ---
PSV 10/5 was attempted and patient was going apneic. Placed patient back on full support.
[2025-01-26] MEDS: POTASSIUM PHOS,M-BASIC-D-BASIC 15 MMOL in SODIUM CHLORIDE 0.9% IV 250 ML 63.75 MMOL IVPB (09:00)
--- NOTE | 2025-01-26 09:44 | P.PNINT_ITS ---
Progress Note: A&P Assessment and Plan (1) Acute hypoxic respiratory failure: Code(s): J96.01 - Acute respiratory failure with hypoxia Status: Acute Assessment and Plan: Acute respiratory failure secondary to aspiration pneumonia pleural effusion upper GI bleed with underlying COPD 01/20: Intubated in the ER on admission 01/24 patient was successfully extubated, Post extubation patient was tachypneic. She was placed on BiPAP but her tachypnea and work of breathing worsened and she complained of being short of breath. Was reintubate about an hour post extubation on the same day 01/24: Reintubated 01/26: Remains on CMV mode of ventilation, peep of 5, 35% FiO2 -chest x-ray and ABGs reviewed this morning -place patient back on PSV 01/05, patient does go in an out of apnea ventilation. -significantly cachectic and weak, may require prolonged SBT before extubation, may extubated directly to BiPAP given her severe COPD -will add bronchodilators and budesonide given her underlying COPD (2) Acute upper GI bleeding: Code(s): K92.2 - Gastrointestinal hemorrhage, unspecified Status: Acute Assessment and Plan: Acute upper GI bleed 01/20 EGD showed reflux/erosive/ulcerative esophagitis and hiatal hernia, no variceal bleed Status post transfusion of multiple units of PRBC Coagulopathy cryo and FFP Hemoglobin appears to be now stable. I will continue monitoring hemoglobin and transfuse additional PRBC if needed continue IV PPI. Octreotide was discontinued GI following (3) Transaminitis: Code(s): R74.01 - Elevation of levels of liver transaminase levels Status: Acute Assessment and Plan: AST and ALT mildly elevated likely consistent with alcoholic liver disease. Hepatitis C antibody screen is positive. RNA quantitative is [id number] -LFTs have normalized, continue to monitor (4) Alcoholic cirrhosis of liver with ascites: Code(s): K70.31 - Alcoholic cirrhosis of liver with ascites Status: Acute Assessment and Plan: Patient has cirrhosis from alcohol liver disease with CT scan showing ascites (5) Acute kidney injury superimposed on stage 4 chronic kidney disease: Code(s): N17.9 - Acute kidney failure, unspecified; N18.4 - Chronic kidney disease, stage 4 (severe) Status: Acute Assessment and Plan: Baseline creatinine in mid 2 Patient was given IV fluids but now off due to concern of volume overload and patient has also received significant amount of blood products. Creatinine improved to 2.40 Monitor urine output electrolytes and creatinine CT scans not show any obstruction or stone Renal ultrasound showed mild bilateral hydronephrosis without any stones Appreciate nephrology following the patient. Patient responded well to Lasix for volume overload Chest x-ray does not show any pulmonary vascular congestion this morning Will replace electrolytes as needed (6) Coagulopathy: Code(s): D68.9 - Coagulation defect, unspecified Status: Acute Assessment and Plan: Coagulopathy secondary to cirrhosis and sepsis Patient received cryo and platelets, and FFP (7) Sepsis: Code(s): A41.9 - Sepsis, unspecified organism Status: Acute Assessment and Plan: Sepsis likely secondary to pneumonia which could be aspiration Blood cultures grew Staph hominis which is likely contaminant. Will discontinue vancomycin On IV Zosyn (end date 01/26) UA and micro also suggestive UTI. Urine cultures Negative (8) Anemia: Code(s): D64.9 - Anemia, unspecified Status: Acute Assessment and Plan: Likely multifactorial anemia from iron deficiency and anemia of chronic kidney disease along with acute blood loss Patient received a dose of iron And she has received for units of PRBC. Hemoglobin appears to have stabilized Monitor and transfuse additional if needed Management of GI bleeding as above Neupogen per Nephrology (9) Thrombocytopenia: Code(s): D69.6 - Thrombocytopenia, unspecified Status: Acute Assessment and Plan: Thrombocytopenia likely combination of sepsis and cirrhosis. 01/20 Platelet transfusion (10) Alcohol abuse: Code(s): F10.10 - Alcohol abuse, uncomplicated Status: Acute Assessment and Plan: History of alcohol abuse. Off all sedation Continue thiamine and folic acid (11) Severe protein-calorie malnutrition: Code(s): E43 - Unspecified severe protein-calorie malnutrition Status: Acute Assessment and Plan: Appears well nourished and cachectic. Patient was NPO due to GI bleed. -Now on tube feeds. (12) Acetabular fracture: Qualifiers: Encounter type: initial encounter Fracture alignment: nondisplaced Fracture type: closed Laterality: right Sublocation of acetabulum: unspecified portion of acetabulum Qualified Code(s): S32.401A - Unspecified fracture of right acetabulum, initial encounter for closed fracture Code(s): S32.409A - Unspecified fracture of unspecified acetabulum, initial encounter for closed fracture Status: Acute Assessment and Plan: Orthopedics evaluate the patient . No further recommendations at this time (13) Distal radial fracture: Qualifiers: Encounter type: subsequent encounter Fracture healing: with nonunion Fracture morphology: unspecified fracture morphology Fracture type: closed Laterality: left Qualified Code(s): S52.502K - Unspecified fracture of the lower end of left radius, subsequent encounter for closed fracture with nonunion Code(s): S52.509A - Unspecified fracture of the lower end of unspecified radius, initial encounter for closed fracture Status: Acute Assessment and Plan: seen by orthopedics. Splint removed as per recommendations. Plan DVT prophylaxis -SCDs Stress ulcer prophylaxis -Protonix IV Nutrition -continue tube feeds Code Status - Full Code Total Critical Care Time - 32 minutes Due to a high probability of clinically significant, life threatening deterioration, the patient required my highest level of preparedness to intervene emergently and I personally spent this critical care time directly and personally managing the patient. This critical care time included obtaining a history; examining the patient; pulse oximetry; ordering and review of studies; arranging urgent treatment with development of a management plan; evaluation of patient's response to treatment; frequent reassessment; and discussions with other providers. It was exclusive of separately billable procedures and treating other patients and teaching time. Please see Assessment and Plan section and the rest of the note for further information on patient assessment and treatment This dictation may have been done utilizing a voice recognition system. Attempts have been made to correct errors. However, there may be uncorrected grammatical, spelling, and recognitions errors present. Subjective Date/time seen: 01/26/25 09:44 Interval history: Reason for consult, GI bleed, acute renal failure, hypotension, shock, pneumonia, respiratory failure, required multiple blood product transfusion, transaminitis coagulopathy, thrombocytopenia, alcohol abuse, severe protein calorie malnutrition, acetabular fracture, distal radial fracture 01/20: EGD showed reflux/erosive/ulcerative esophagitis, hiatal hernia. No varices 01/20: Intubation in the ER 01/24: Extubated 01/24: Reintubated 01/26/2025: Patient seen and examined the ICU, remains intubated, peep of 5, 35% FiO2. Sedation has been off since the last 24 hours. Patient is awake, nods to questions and follows simple commands in all extremities. Denies any shortness of breath, pain. Patient is afebrile, adequate urine output. Review of Systems Review of Systems: ROS unobtainable: Yes unobtainable due to endotracheal tube, unobtainable due to medical condition and unobtainable due to mental status Exam Narrative: General: Pt is cachectic, appears older than her age, intubated, off all sedation, in no acute distress HEENT: Pupils are equal and reactive, sclera is clear, ETT in place Lungs/Chest: Good air entry in all regions, decreased at bases, no wheezing, adequate air entry Cardiac: RRR. Normal S1 S2. No murmurs Abdomen: Decreased bowel sounds. Soft. NT. ND. Extremities: No clubbing, cyanosis or edema. Pedal pulses are intact : Mclean in place Neurologic: Off all sedation, patient remains intubated, is awake, alert, nods to questions, follows simple commands in all extremities. Strength is weak in all extremities Skin: Petechia on the chest Objective Data Vital Signs Vital Signs: Vital Signs - 24 hr 01/25/25 10:00 01/25/25 10:43 01/25/25 10:50 Temperature Pulse Rate 83 20 L Respiratory Rate Blood Pressure 164/107 H Pulse Oximetry Oxygen Delivery Fraction of Inspired Oxygen 01/25/25 11:06 01/25/25 11:08 01/25/25 11:26 Temperature Pulse Rate 75 Respiratory Rate Blood Pressure 146/97 H Pulse Oximetry 96 Oxygen Delivery Mechanical Ventilation Fraction of Inspired Oxygen 36 35 01/25/25 12:00 01/25/25 12:00 01/25/25 14:00 Temperature Pulse Rate 76 76 78 Respiratory Rate 12 Blood Pressure Pulse Oximetry 95 Oxygen Delivery Mechanical Ventilation Fraction of Inspired Oxygen 35 01/25/25 14:05 01/25/25 16:00 01/25/25 16:00 Temperature Pulse Rate 80 80 Respiratory Rate 12 Blood Pressure Pulse Oximetry 98 95 Oxygen Delivery Mechanical Ventilation Mechanical Ventilation Fraction of Inspired Oxygen 36 35 35 01/25/25 16:00 01/25/25 17:24 01/25/25 18:00 Temperature Pulse Rate 79 79 80 Respiratory Rate Blood Pressure Pulse Oximetry 97 Oxygen Delivery Mechanical Ventilation Fraction of Inspired Oxygen 36 01/25/25 19:31 01/25/25 19:43 01/25/25 19:43 Temperature Pulse Rate 80 81 Respiratory Rate 12 Blood Pressure Pulse Oximetry 97 Oxygen Delivery Mechanical Ventilation Fraction of Inspired Oxygen 36 36 01/25/25 20:39 01/25/25 22:00 01/25/25 22:00 Temperature 98.4 F Pulse Rate 84 86 86 Respiratory Rate 18 Blood Pressure 143/91 H Pulse Oximetry 95 95 Oxygen Delivery Mechanical Ventilation Fraction of Inspired Oxygen 01/25/25 22:19 01/26/25 00:00 01/26/25 00:00 Temperature Pulse Rate 86 86 85 Respiratory Rate 18 Blood Pressure Pulse Oximetry 96 95 Oxygen Delivery Mechanical Ventilation Mechanical Ventilation Fraction of Inspired Oxygen 36 01/26/25 00:00 01/26/25 00:00 01/26/25 01:03 Temperature 98.8 F Pulse Rate 85 86 Respiratory Rate 16 Blood Pressure 167/113 H Pulse Oximetry 95 95 Oxygen Delivery Mechanical Ventilation Fraction of Inspired Oxygen 36 01/26/25 01:43 01/26/25 02:00 01/26/25 02:00 Temperature 98.4 F Pulse Rate 74 74 74 Respiratory Rate 16 Blood Pressure 141/94 H Pulse Oximetry 100 Oxygen Delivery Fraction of Inspired Oxygen 01/26/25 04:00 01/26/25 04:00 01/26/25 04:00 Temperature Pulse Rate 74 75 Respiratory Rate 16 Blood Pressure Pulse Oximetry 100 Oxygen Delivery Mechanical Ventilation Fraction of Inspired Oxygen 36 36 01/26/25 04:00 01/26/25 04:55 01/26/25 07:54 Temperature 98.0 F Pulse Rate 72 75 78 Respiratory Rate 16 Blood Pressure 161/98 H Pulse Oximetry 100 98 95 Oxygen Delivery Mechanical Ventilation Mechanical Ventilation Fraction of Inspired Oxygen 01/26/25 07:56 01/26/25 08:00 01/26/25 08:00 Temperature 97.8 F Pulse Rate 79 79 79 Respiratory Rate 16 16 Blood Pressure 148/93 H Pulse Oximetry 97 96 Oxygen Delivery Mechanical Ventilation Fraction of Inspired Oxygen 35 01/26/25 08:05 01/26/25 08:06 01/26/25 08:12 Temperature Pulse Rate 78 78 Respiratory Rate Blood Pressure Pulse Oximetry 95 96 Oxygen Delivery Mechanical Ventilation Mechanical Ventilation Mechanical Ventilation Fraction of Inspired Oxygen 35 Intake/Output Intake/Output: Intake & Output 01/23/25 01/24/25 01/25/25 01/26/25 23:59 23:59 23:59 23:59 Intake Total 806.2 1056.5 766 Output Total 4670 1475 1050 650 Balance -2293.8 535.5 6.5 116 Meds/Results Medications: Active Medications Generic Name Dose Route Start Last Admin Trade Name Freq PRN Reason Stop Dose Admin Acetaminophen 650 mg 01/23/25 14:11 01/23/25 18:43 Acetaminophen 325 Mg Tablet FEED TUBE 650 mg Q4H PRN Administration Fever 1-3 Amlodipine Besylate 5 mg 01/25/25 09:00 01/26/25 08:20 Amlodipine Besylate 5 Mg Tablet FEED TUBE 5 mg DAILY MEENA Administration Dextrose 12.5 gm 01/20/25 08:23 Dextrose 50% 25 Gm/50 Ml Syringe IV PUSH PRN PRN Hypoglycemia Protocol Epoetin Emil-epbx 10,000 units 01/23/25 09:00 01/26/25 08:20 Epoetin Emil-Epbx 10,000 Units/Ml Vial SUB-Q 10,000 units TUTHSA@09 MEENA Administration Folic Acid 1 mg 01/20/25 09:00 01/26/25 08:20 Folic Acid 1 Mg/0.2 Ml Inj IV PUSH 1 mg QAM MEENA Administration Glucagon 1 mg 01/20/25 08:23 Glucagon For Inj 1 Mg Vial IM PRN PRN Hypoglycemia Protocol Glucose 15 gm 01/20/25 08:23 Glucose Oral Gel 15 Gm Of Glucse In 37.5 Gm Tube PO PRN PRN Hypoglycemia Protocol Hydralazine HCl 20 mg 01/24/25 03:34 01/26/25 05:50 Hydralazine Hcl 20 Mg/Ml Vial IV PUSH 20 mg Q4H PRN Administration Hypertension Dextrose 1,000 mls @ 100 mls/hr 01/20/25 08:23 Dextrose 5% 1,000 Ml IVPB PRN PRN Hypoglycemia Protocol Piperacillin Sod/Tazobactam 50 mls @ 100 mls/hr 01/21/25 08:00 01/26/25 08:20 Sod 2.25 gm/ Sodium Chloride IVPB 01/26/25 23:59 100 mls/hr Q8H MEENA Administration Propofol 100 mls @ 2.664 mls/hr 01/24/25 09:45 01/26/25 01:42 Diprivan IV CONT Not Given .[id number] MEENA Protocol 10 MCG/KG/MIN Potassium Phosphate 15 mmol/ 255 mls @ 63.75 mls/hr 01/26/25 08:05 01/26/25 09:00 Sodium Chloride IVPB 01/26/25 12:04 63.75 mls/hr ONCE ONE Administration Insulin Aspart 3 - 6 units 01/20/25 12:00 01/26/25 07:58 Insulin Aspart (*Bkc) 100 Units/Ml SUB-Q Not Given Q6HR [facility] Protocol Labetalol HCl 20 mg 01/23/25 09:31 01/26/25 01:43 Labetalol Hcl Inj 100 Mg/20 Ml Vial IV PUSH 20 mg Q4H PRN Administration SBP > 160 and HR> 60 -1st choice Multi-Ingred Cream/Lotion/Oil/Oint 1 applic 01/22/25 21:00 01/26/25 08:20 Mineral Oil/White Petrolatum Ointment EACH EYE Not Given Q12HR MEENA Pantoprazole Sodium 40 mg 01/21/25 09:00 01/26/25 08:20 Pantoprazole Sodium Iv 40 Mg Vial IV PUSH 40 mg Q12HR MEENA Administration Sodium Chloride 10 ml 01/20/25 06:00 01/26/25 07:58 Central Line Flush IV PUSH 10 ml Q8HR MEENA Administration Sodium Chloride 20 ml 01/20/25 01:15 01/24/25 04:56 Central Line Flush IV PUSH 20 ml PRN PRN Administration after blood draws Thiamine HCl 100 mg 01/20/25 09:00 01/26/25 08:20 Thiamine Hcl 200 Mg/2 Ml Vial IV PUSH 100 mg QAM MEENA Administration Radiology Results: ITS Impressions Abdomen X-Ray 01/20/25 05:42 Impression: NG tube in satisfactory position. Small left pleural effusion. Chest/Abdomen/Pelvis CT 01/20/25 05:48 Impression: Moderate to large left pleural effusion with extensive left lower lobe atelectasis. Small right pleural effusion. 9 mm spiculated nodule in the right lower lobe, as detailed above, indeterminate. CT scan in 3 months advised. Consider PET/CT or attempted tissue sampling as indicated. Moderate emphysema. No definite evidence for GI bleed, but evaluation is limited without IV contrast and with oral contrast on board. Consider follow-up CT angiogram of the bowel to further evaluate for GI bleed, as indicated. Moderate abdominopelvic ascites. T12 compression fracture, somewhat age indeterminate, but new since 06/20/2024. Fractures of the right anterior acetabulum at the junction of the right superior pubic ramus and of the right inferior pubic ramus, acute to subacute in nature. Head CT 01/20/25 06:13 Impression: No intracranial hemorrhage, mass, or acute infarct. Atrophy and chronic white matter changes, as above. Wrist X-Ray 01/20/25 06:13 Impression: Probable chronic fracture deformities of the distal radius and ulnar styloid process, as detailed above. No definite acute fracture. Renal Ultrasound 01/21/25 08:42 IMPRESSION: 1. Medical renal disease. 2. Mild bilateral hydronephrosis. No nephrolithiasis. Hip/Pelvis X-Ray 01/24/25 11:12 Impression: 1: Healing right acetabular and inferior pubic rami fractures with callus formation. Chest X-Ray 01/26/25 07:05 Impression: 1: Stable retrocardiac opacification most likely atelectasis. Superimposed pneumonia not excluded. Labs Labs: Laboratory Results - last 24 hr 01/25/25 01/25/25 01/26/25 11:46 17:32 04:42 WBC RBC Hgb Hct MCV MCH MCHC RDW Plt Count MPV % Immature Plt Fraction PT INR APTT Fibrinogen D-Dimer Puncture Site Right radial ABG pH 7.449 ABG pCO2 43.7 ABG pO2 104.6 H ABG PO2/FiO2 Ratio 2.99 ABG HCO3 29.6 H ABG O2 Saturation 98.0 ABG O2 Content 17.2 ABG Base Excess 5.0 A-a Gradient 94.2 Oxyhemoglobin 97.1 Carboxyhemoglobin 0.9 Methemoglobin 0.2 Reduced Hemoglobin 1.8 Total Hemoglobin 12.5 O2 Delivery Device Ventilator O2 Liters/Min Not Reportable Minute Volume Not Reportable Vent Rate 14 Vent Mode Cmv FiO2 35 Tidal Volume 320 PEEP 5 Peak Inspir Pressure Not Reportable Pressure Support Not Reportable Sodium Potassium Chloride Carbon Dioxide Anion Gap BUN Creatinine Estim Creat Clear Calc Estimated GFR Glucose POC Capillary Glucose 103 121 H Calcium Phosphorus Magnesium Total Bilirubin AST ALT Alkaline Phosphatase Total Protein Albumin Triglycerides 01/26/25 01/26/25 01/26/25 05:14 07:33 08:24 WBC 7.9 8.2 RBC 3.81 L 3.88 L Hgb 11.5 L 11.4 L D Hct 37.6 37.8 MCV 98.7 97.4 D MCH 30.2 29.4 MCHC 30.6 L 30.2 L RDW 20.2 H 20.1 H Plt Count 43 L 41 L D MPV 10.1 12.0 H % Immature Plt Fraction 3.1 3.0 PT 14.8 H INR 1.1 APTT 34.2 Fibrinogen 245 D-Dimer 2.62 H Puncture Site ABG pH ABG pCO2 ABG pO2 ABG PO2/FiO2 Ratio ABG HCO3 ABG O2 Saturation ABG O2 Content ABG Base Excess A-a Gradient Oxyhemoglobin Carboxyhemoglobin Methemoglobin Reduced Hemoglobin Total Hemoglobin O2 Delivery Device O2 Liters/Min Minute Volume Vent Rate Vent Mode FiO2 Tidal Volume PEEP Peak Inspir Pressure Pressure Support Sodium 144 Potassium 3.7 Chloride 108 H Carbon Dioxide 29 Anion Gap 7 BUN 75 H Creatinine 2.18 H Estim Creat Clear Calc 16 Estimated GFR 23 L Glucose 120 H POC Capillary Glucose 117 H Calcium 8.0 L Phosphorus 1.3 L Magnesium 1.7 Total Bilirubin 0.9 AST 33 ALT 28 Alkaline Phosphatase 73 Total Protein 5.4 L Albumin 3.1 L Triglycerides 100 Quality VTE Prophylaxis VTE prophylaxis: mechanical ordered
[2025-01-26 10:07] LABS: Magnesium 1.5 mg/dL (1.6-2.3)
--- NOTE | 2025-01-26 11:13 | PCNFU ---
Nutrition Follow-Up Complete: Severe Protein Calorie Malnutrition as related to inadequate protein-energy intake with increased protein-energy needs in setting of chronic disease as evidenced by minimal oral intake for >1-2 months; severe subcutaneous fat loss (orbital fat pads) and severe muscle wasting (temporalis). goal: Meet estimated nutritional needs Patient will continue current goal. Pt current nutrition is Nepro at 40 ml/hr. Last recorded weight is 40.7 kg, up from 40 kg on admit. Bowel Motility: Last reported BM 01/26 Labs Reviewed:PO4 1.3, BUN 75, Cr 2.18, Alb 3.1 Meds Noted: Protonix, Thiamine, Folic Acid Skin: WNL Additional Notes: Patient remains on mechanical vent. Tube feedings are being tolerated of Nepro at 40 ml/hr with flush 75 ml q 4 hours. Total Nutrition: 1584 kcal/71 gm protein/640 ml water. PO4 increased today, will continue to monitor for refeeding syndrome. At this time agree with diet orders. Will monitor weight, labs, skin, diet orders, meds every Saturday and Saturday.
[2025-01-26] MEDS: MAGNESIUM SULF 2 GM/WATER 50ML 2 GM/50 ML BAG IVPB (11:30)
--- NOTE | 2025-01-26 11:30 | P.PNNP_ITS ---
Progress Note: A&P Assessment and Plan (1) Acute kidney injury: Code(s): N17.9 - Acute kidney failure, unspecified Status: Acute Assessment and Plan: * relatively stable if not better * as noted on admission (creatinine of 3.43mg/dl) * likely due to multiple issues: * prerenal factors (poor nutrition) * anemia/GI bleed * infection/sepsis (+ blood cultures) * respiratory failure * hypoxia * liver disease/cirrhosis * progression of underlying CKD * other(?) * evaluation to date noted: * renal ultrasound with CKD and mild bilateral hydronephrosis - mcqueen cathter placed * urine electrolytes prerenal - suspect due to a combination of poor oral intake AND liver disease/physiology (decreased effective circulating volume) * urine eosinophils negative * CPK low * ~ 2 grams of proteinuria * maintain hemodynamics and H/H as tolerated * noted reasonable urine output with IV diuretic use * follow trend of repeat labs and UOP (2) Stage 4 chronic kidney disease: Code(s): N18.4 - Chronic kidney disease, stage 4 (severe) Status: Chronic Assessment and Plan: * not entirely clear what baseline creatinine really is.... * was noted to be ~ 1.4 - 1.6mg/dl in June 2024 * however, since December 2024, has been running ~ 2.4 - 2.6mg/dl (from record review from [facility]) * most recent labs done on 01/15/25 -- creatinine up to 2.79mg/dl (ER visit at [facility] prior to leaving [place]) (3) Acute upper GI bleeding: Code(s): K92.2 - Gastrointestinal hemorrhage, unspecified Status: Acute Assessment and Plan: * suspected based on admission events/presentation * GI following * s/p EGD (on 01/20): * noted erosive esophagitis but no varices or bleeding lesions noted * PRBC transfusion per protocol * corrected coagulopathy * IV PPI * follow trend on H/H (4) Acute hypoxic respiratory failure: Code(s): J96.01 - Acute respiratory failure with hypoxia Status: Acute Assessment and Plan: * multifactorial: * inability to protect airway * aspiration pneumonia * pleural effusions * suspected upper GI bleed * complicated by underlying COPD * imaging noted * IV diuretics PRN for fluid overload (follow CXR results) * failed trial of extubation (on 01/24) * continue ventilator support (5) Sepsis: Code(s): A41.9 - Sepsis, unspecified organism Status: Acute Assessment and Plan: * possibly from pneumonia (aspiration) versus UTI * follow culture data: * blood cultures (from 01/20): Staphylococcus hominis (suspect contamination) * urine culture - no growth to date * on antibiotics * stable hemodynamics noted * follow repeat cultures (6) Anemia: Code(s): D64.9 - Anemia, unspecified Status: Acute Assessment and Plan: * due to several issues: * due to underlying CKD * iron deficiency * #3 - GI following * liver disease * coagulopathy * other * PRBC transfusion as needed * Epogen while hospitalized * follow trend of H/H (7) Coagulopathy: Code(s): D68.9 - Coagulation defect, unspecified Status: Acute Assessment and Plan: * porbably secondary to liver cirrhosis * complicated by thrombocytopenia also related to liver disease * s/p cryoprecipitate, platelets, and FFP transfusion * follow INR (8) Alcoholic cirrhosis of liver with ascites: Code(s): K70.31 - Alcoholic cirrhosis of liver with ascites Status: Acute Assessment and Plan: * as evidence by admission CT/imaging findings * presumably partly related to alcohol intake * GI following (9) Transaminitis: Code(s): R74.01 - Elevation of levels of liver transaminase levels Status: Acute Assessment and Plan: * noted by admission labs * suspect secondary to/consistent with with alcoholic liver disease. * Hepatitis C antibody screen is positive -- RNA quantitative is [id number] * will need follow-up as an outpatient basis for hepatitis C infection (10) Acetabular fracture: Qualifiers: Encounter type: initial encounter Fracture alignment: nondisplaced F racture type: closed Laterality: right Sublocation of acetabulum: unspecified portion of acetabulum Qualified Code(s): S32.401A - Unspecified fracture of right acetabulum, initial encounter for closed fracture Code(s): S32.409A - Unspecified fracture of unspecified acetabulum, initial encounter for closed fracture Status: Acute Assessment and Plan: * as noted by admission CT imaging: * fractures of the right anterior acetabulum at the junction of the right superior pubic ramus and of the right inferior pubic ramus, acute to subacute in nature * Orthopedic Surgery recommendations * repeat imaging X-rays noted: Healing right acetabular and inferior pubic rami fractures with callus formation (11) Distal radial fracture: Qualifiers: Encounter type: subsequent encounter Fracture healing: with nonunion F racture morphology: unspecified fracture morphology Fracture type: closed L aterality: left Qualified Code(s): S52.502K - Unspecified fracture of the lower end of left radius, subsequent encounter for closed fracture with nonunion Code(s): S52.509A - Unspecified fracture of the lower end of unspecified radius, initial encounter for closed fracture Status: Acute Assessment and Plan: * apparently chronic in nature by X-rays * Orthopedic Surgery recommendations reviewed (12) Alcohol abuse: Code(s): F10.10 - Alcohol abuse, uncomplicated Status: Acute Assessment and Plan: * known history * on IV thiamine and folate Will continue to follow. L Subjective Date/time seen: 01/26/25 11:30 Interval history: Follow-up for acute kidney injury/acute renal failure on chronic kidney disease. Remains intubated and on mechanical ventilation -- off sedation and is awake and able to nod to yes/no questions and follow simple commands; no apparent distress noted at this time; renal function/creatinine stable if not better with adequate urine output noted; remains hemodynamically stable. Exam 2 Narrative: General: chronically ill-appearing/cachectic female intubated & on mechanical ventilation Heart: normal S1 and S2; no rub Lungs: coarse breath sounds; decreased throughout Abdomen: soft, nontender, nondistended, positive bowel sounds Extremities: no cyanosis or clubbing; trace edema Skin: no nodules Objective Data Vital Signs Vital Signs: Vital Signs Temp Pulse Resp BP Pulse Ox O2 Del Method FiO2 01/26/25 11:30 98.2 F 81 16 135/92 H 96 Mechanical Ventilation 01/26/25 10:00 79 01/26/25 10:00 98.0 F 80 16 138/94 H 94 01/26/25 08:45 Mechanical Ventilation 01/26/25 08:12 78 96 Mechanical Ventilation 01/26/25 08:06 78 95 Mechanical Ventilation 35 01/26/25 08:05 Mechanical Ventilation 01/26/25 08:00 35 01/26/25 08:00 79 16 96 Mechanical Ventilation 35 01/26/25 08:00 79 01/26/25 07:56 97.8 F 79 16 148/93 H 97 01/26/25 07:54 78 95 Mechanical Ventilation 01/26/25 04:55 75 98 Mechanical Ventilation 01/26/25 04:00 98.0 F 72 16 161/98 H 100 01/26/25 04:00 36 01/26/25 04:00 75 01/26/25 04:00 74 16 100 Mechanical Ventilation 36 01/26/25 02:00 98.4 F 74 16 141/94 H 100 01/26/25 02:00 74 01/26/25 01:43 74 01/26/25 01:03 86 95 Mechanical Ventilation 01/26/25 00:00 98.8 F 85 16 167/113 H 95 01/26/25 00:00 36 01/26/25 00:00 85 01/26/25 00:00 86 18 95 Mechanical Ventilation 36 01/25/25 22:19 86 96 Mechanical Ventilation 01/25/25 22:00 98.4 F 86 18 143/91 H 95 01/25/25 22:00 86 01/25/25 20:39 84 95 Mechanical Ventilation 01/25/25 19:43 36 01/25/25 19:43 81 01/25/25 19:31 80 12 97 Mechanical Ventilation 36 01/25/25 18:00 80 01/25/25 17:24 79 97 Mechanical Ventilation 36 01/25/25 16:00 79 01/25/25 16:00 35 01/25/25 16:00 80 12 95 Mechanical Ventilation 35 01/25/25 14:05 80 98 Mechanical Ventilation 36 Intake/Output Intake/Output: Intake & Output 01/23/25 01/24/25 01/25/25 01/26/25 23:59 23:59 23:59 23:59 Intake Total 806.2 2010.5 1056.5 816 Output Total 3100 1475 1050 650 Balance -2293.8 535.5 6.5 166 Meds/Results Medications: Active Medications Generic Name Dose Route Start Last Admin Trade Name Freq PRN Reason Stop Dose Admin Acetaminophen 650 mg 01/23/25 14:11 01/23/25 18:43 Acetaminophen 325 Mg Tablet FEED TUBE 650 mg Q4H PRN Administration Fever 1-3 Albuterol/Ipratropium 3 ml 01/26/25 14:00 Ipratropium 0.5 Mg/Albuterol Sulfate 2.5 Mg Ampul.Neb 3 Ml INHALATION Q6HRT [facility] Amlodipine Besylate 5 mg 01/25/25 09:00 01/26/25 08:20 Amlodipine Besylate 5 Mg Tablet FEED TUBE 5 mg DAILY [facility] Administration Budesonide 0.5 mg 01/26/25 10:00 Budesonide Respule Neb 0.5 Mg/2 Ml Amp INHALATION Q12HRT [facility] Dextrose 12.5 gm 01/20/25 08:23 Dextrose 50% 25 Gm/50 Ml Syringe IV PUSH PRN PRN Hypoglycemia Protocol Epoetin Emil-epbx 10,000 units 01/23/25 09:00 01/26/25 08:20 Epoetin Emil-Epbx 10,000 Units/Ml Vial SUB-Q 10,000 units TUTHSA@09 [facility] Administration Folic Acid 1 mg 01/20/25 09:00 01/26/25 08:20 Folic Acid 1 Mg/0.2 Ml Inj IV PUSH 1 mg QAM MEENA Administration Glucagon 1 mg 01/20/25 08:23 Glucagon For Inj 1 Mg Vial IM PRN PRN Hypoglycemia Protocol Glucose 15 gm 01/20/25 08:23 Glucose Oral Gel 15 Gm Of Glucse In 37.5 Gm Tube PO PRN PRN Hypoglycemia Protocol Hydralazine HCl 20 mg 01/24/25 03:34 01/26/25 05:50 Hydralazine Hcl 20 Mg/Ml Vial IV PUSH 20 mg Q4H PRN Administration Hypertension Dextrose 1,000 mls @ 100 mls/hr 01/20/25 08:23 Dextrose 5% 1,000 Ml IVPB PRN PRN Hypoglycemia Protocol Piperacillin Sod/Tazobactam 50 mls @ 100 mls/hr 01/21/25 08:00 01/26/25 08:50 Sod 2.25 gm/ Sodium Chloride IVPB 01/26/25 23:59 Infused Q8H [facility] Infusion Insulin Aspart 3 - 6 units 01/20/25 12:00 01/26/25 12:14 Insulin Aspart (*Bkc) 100 Units/Ml SUB-Q Not Given Q6HR [facility] Protocol Labetalol HCl 20 mg 01/23/25 09:31 01/26/25 01:43 Labetalol Hcl Inj 100 Mg/20 Ml Vial IV PUSH 20 mg Q4H PRN Administration SBP > 160 and HR> 60 -1st choice Multi-Ingred Cream/Lotion/Oil/Oint 1 applic 01/22/25 21:00 01/26/25 08:20 Mineral Oil/White Petrolatum Ointment EACH EYE Not Given Q12HR MEENA Pantoprazole Sodium 40 mg 01/21/25 09:00 01/26/25 08:20 Pantoprazole Sodium Iv 40 Mg Vial IV PUSH 40 mg Q12HR MEENA Administration Sodium Chloride 10 ml 01/20/25 06:00 01/26/25 07:58 Central Line Flush IV PUSH 10 ml Q8HR MEENA Administration Sodium Chloride 20 ml 01/20/25 01:15 01/24/25 04:56 Central Line Flush IV PUSH 20 ml PRN PRN Administration after blood draws Thiamine HCl 100 mg 01/20/25 09:00 01/26/25 08:20 Thiamine Hcl 200 Mg/2 Ml Vial IV PUSH 100 mg QAM MEENA Administration Radiology Results: ITS Impressions Abdomen X-Ray 01/20/25 05:42 Impression: NG tube in satisfactory position. Small left pleural effusion. Chest/Abdomen/Pelvis CT 01/20/25 05:48 Impression: Moderate to large left pleural effusion with extensive left lower lobe atelectasis. Small right pleural effusion. 9 mm spiculated nodule in the right lower lobe, as detailed above, indeterminate. CT scan in 3 months advised. Consider PET/CT or attempted tissue sampling as indicated. Moderate emphysema. No definite evidence for GI bleed, but evaluation is limited without IV contrast and with oral contrast on board. Consider follow-up CT angiogram of the bowel to further evaluate for GI bleed, as indicated. Moderate abdominopelvic ascites. T12 compression fracture, somewhat age indeterminate, but new since 06/20/2024. Fractures of the right anterior acetabulum at the junction of the right superior pubic ramus and of the right inferior pubic ramus, acute to subacute in nature. Head CT 01/20/25 06:13 Impression: No intracranial hemorrhage, mass, or acute infarct. Atrophy and chronic white matter changes, as above. Wrist X-Ray 01/20/25 06:13 Impression: Probable chronic fracture deformities of the distal radius and ulnar styloid process, as detailed above. No definite acute fracture. Renal Ultrasound 01/21/25 08:42 IMPRESSION: 1. Medical renal disease. 2. Mild bilateral hydronephrosis. No nephrolithiasis. Hip/Pelvis X-Ray 01/24/25 11:12 Impression: 1: Healing right acetabular and inferior pubic rami fractures with callus formation. Chest X-Ray 01/26/25 07:05 Impression: 1: Stable retrocardiac opacification most likely atelectasis. Superimposed pneumonia not excluded. Labs Labs: Laboratory Tests 01/26/25 08:24 01/26/25 05:14 WBC 7.9 Hgb 11.5 L Hct 37.6 Plt Count 43 L Calcium 8.0 L Phosphorus 1.3 L Magnesium 1.7 Total Bilirubin 0.9 AST 33 ALT 28 Alkaline Phosphatase 73 Total Protein 5.4 L Albumin 3.1 L Triglycerides 100 Microbiology 01/20/25 02:49 Blood Blood Culture - Final Staphylococcus hominis
--- NOTE | 2025-01-26 13:49 | P.PNIM_ITS ---
Progress Note: A&P Assessment and Plan (1) Acute upper GI bleeding: Code(s): K92.2 - Gastrointestinal hemorrhage, unspecified Status: Acute Assessment and Plan: Acute upper GI bleed 01/20 EGD showed reflux esophagitis and hiatal hernia Status post transfusion of multiple units of PRBC Coagulopathy cryo FFP Hemoglobin appears to be now stable. continue IV PPI. Octreotide was discontinued GI following Continue to monitor H&H (2) Transaminitis: Code(s): R74.01 - Elevation of levels of liver transaminase levels Status: Acute Assessment and Plan: AST and ALT mildly elevated likely consistent with alcoholic liver disease. Hepatitis C antibody screen is positive. RNA quantitative is [id number] Need follow-up as an outpatient basis for hepatitis C infection (3) Alcoholic cirrhosis of liver with ascites: Code(s): K70.31 - Alcoholic cirrhosis of liver with ascites Status: Acute Assessment and Plan: Patient has cirrhosis from alcohol liver disease with CT scan showing ascites (4) Acute kidney injury superimposed on stage 4 chronic kidney disease: Code(s): N17.9 - Acute kidney failure, unspecified; N18.4 - Chronic kidney disease, stage 4 (severe) Status: Acute Assessment and Plan: Baseline creatinine in mid 2 Patient was given IV fluids but now off due to concern of volume overload and patient has also received significant amount of blood products. Creatinine improved to 2.40 Monitor urine output electrolytes and creatinine CT scans not show any obstruction or stone Renal ultrasound showed mild bilateral hydronephrosis without any stones Nephrology consulted and following. Patient may need renal replacement therapy if renal function deteriorates Continue diuretics for volume overload. She has had good urine output in response to Lasix Replace lytes (5) Acute hypoxic respiratory failure: Code(s): J96.01 - Acute respiratory failure with hypoxia Status: Acute Assessment and Plan: Acute respiratory failure secondary to aspiration pneumonia pleural effusion upper GI bleed with underlying COPD Ventilator settings reviewed per admissions coordinator Imaging reviewed suggest mild pulmonary edema or volume overload. ARDS and pneumonia also possibility patient was given diuretics with good urine output Continue IN bronchodilator 01/23 SBT was done and patient had at could RSBI and ABG but patient was not awake enough. Patient is not extubated due to concern of inability to protect airway once extubated. 01/24 patient placed on PSV SBT. And extubated however needed to be reintubated. (6) Coagulopathy: Code(s): D68.9 - Coagulation defect, unspecified Status: Acute Assessment and Plan: Coagulopathy secondary to cirrhosis and sepsis Patient received cryo and platelets. She is also received 2 units of FFP (7) Sepsis: Code(s): A41.9 - Sepsis, unspecified organism Status: Acute Assessment and Plan: Sepsis likely secondary to pneumonia which could be aspiration Blood cultures grew Staph hominis which is likely contaminant. Will discontinue vancomycin On IV Zosyn UA and micro also suggestive UTI. Urine cultures pending (8) Anemia: Code(s): D64.9 - Anemia, unspecified Status: Acute Assessment and Plan: Likely multifactorial anemia from iron deficiency and anemia of chronic kidney disease along with acute blood loss Patient received a dose of iron And she has received for units of PRBC. Hemoglobin appears to have stabilized Monitor and transfuse additional if needed Management of GI bleeding as above Neupogen per Nephrology (9) Thrombocytopenia: Code(s): D69.6 - Thrombocytopenia, unspecified Status: Acute Assessment and Plan: Thrombocytopenia likely combination of sepsis and cirrhosis. 01/20 Platelet transfusion (10) Alcohol abuse: Code(s): F10.10 - Alcohol abuse, uncomplicated Status: Acute Assessment and Plan: History of alcohol abuse. At this time patient is sedated with Versed and fentanyl. Continue thiamine and folic acid (11) Severe protein-calorie malnutrition: Code(s): E43 - Unspecified severe protein-calorie malnutrition Status: Acute Assessment and Plan: Appears well nourished and cachectic. Patient was NPO due to GI bleed. Now on tube feeds. (12) Acetabular fracture: Qualifiers: Encounter type: initial encounter Fracture alignment: nondisplaced Fracture type: closed Laterality: right Sublocation of acetabulum: unspecified portion of acetabulum Qualified Code(s): S32.401A - Unspecified fracture of right acetabulum, initial encounter for closed fracture Code(s): S32.409A - Unspecified fracture of unspecified acetabulum, initial encounter for closed fracture Status: Acute Assessment and Plan: Orthopedics consulted. Obtain records from [facility] Repeat hip x-ray with healing right staff further and inferior pubic rami fractures with callus formation Delete (13) Distal radial fracture: Qualifiers: Encounter type: subsequent encounter Fracture type: closed Fracture morphology: unspecified fracture morphology Laterality: left Fracture healing: with nonunion Qualified Code(s): S52.502K - Unspecified fracture of the lower end of left radius, subsequent encounter for closed fracture with nonunion Code(s): S52.509A - Unspecified fracture of the lower end of unspecified radius, initial encounter for closed fracture Status: Acute Assessment and Plan: Currently in splint. Orthopedics consulted Subjective Date/time seen: 01/26/25 13:49 Interval history: No overnight events. Remains on ventilator. Patient off sedation since yesterday. Review of Systems Review of Systems: ROS unobtainable: Yes unobtainable due to medical condition Exam Narrative: General: Pt is cachectic old female who looks much older than her age. Sedated and on vent Lungs/Chest: Trachea central Coarse BS B/L, No crackles or wheezing. Delete Cardiac: RRR. Normal S1 S2. No murmurs Circulation: Pedal pulses are intact and symmetrical. Abdomen: Decreased bowel sounds.. Soft. NT. ND. Extremities: No clubbing, cyanosis or edema. Feet are cold : Mclean in place Neurologic: Awake and alert Skin: Petechia on the chest Objective Data Vital Signs Vital Signs: Vital Signs - 24 hr 01/25/25 14:00 01/25/25 14:05 01/25/25 16:00 Temperature Pulse Rate 78 80 80 Respiratory Rate 12 Blood Pressure Pulse Oximetry 98 95 Oxygen Delivery Mechanical Ventilation Mechanical Ventilation Fraction of Inspired Oxygen 36 35 01/25/25 16:00 01/25/25 16:00 01/25/25 17:24 Temperature Pulse Rate 79 79 Respiratory Rate Blood Pressure Pulse Oximetry 97 Oxygen Delivery Mechanical Ventilation Fraction of Inspired Oxygen 35 36 01/25/25 18:00 01/25/25 19:31 01/25/25 19:43 Temperature Pulse Rate 80 80 81 Respiratory Rate 12 Blood Pressure Pulse Oximetry 97 Oxygen Delivery Mechanical Ventilation Fraction of Inspired Oxygen 36 01/25/25 19:43 01/25/25 20:39 01/25/25 22:00 Temperature Pulse Rate 84 86 Respiratory Rate Blood Pressure Pulse Oximetry 95 Oxygen Delivery Mechanical Ventilation Fraction of Inspired Oxygen 36 01/25/25 22:00 01/25/25 22:19 01/26/25 00:00 Temperature 98.4 F Pulse Rate 86 86 86 Respiratory Rate 18 18 Blood Pressure 143/91 H Pulse Oximetry 95 96 95 Oxygen Delivery Mechanical Ventilation Mechanical Ventilation Fraction of Inspired Oxygen 36 01/26/25 00:00 01/26/25 00:00 01/26/25 00:00 Temperature 98.8 F Pulse Rate 85 85 Respiratory Rate 16 Blood Pressure 167/113 H Pulse Oximetry 95 Oxygen Delivery Fraction of Inspired Oxygen 36 01/26/25 01:03 01/26/25 01:43 01/26/25 02:00 Temperature Pulse Rate 86 74 74 Respiratory Rate Blood Pressure Pulse Oximetry 95 Oxygen Delivery Mechanical Ventilation Fraction of Inspired Oxygen 01/26/25 02:00 01/26/25 04:00 01/26/25 04:00 Temperature 98.4 F Pulse Rate 74 74 75 Respiratory Rate 16 16 Blood Pressure 141/94 H Pulse Oximetry 100 100 Oxygen Delivery Mechanical Ventilation Fraction of Inspired Oxygen 36 01/26/25 04:00 01/26/25 04:00 01/26/25 04:55 Temperature 98.0 F Pulse Rate 72 75 Respiratory Rate 16 Blood Pressure 161/98 H Pulse Oximetry 100 98 Oxygen Delivery Mechanical Ventilation Fraction of Inspired Oxygen 36 01/26/25 07:54 01/26/25 07:56 01/26/25 08:00 Temperature 97.8 F Pulse Rate 78 79 79 Respiratory Rate 16 Blood Pressure 148/93 H Pulse Oximetry 95 97 Oxygen Delivery Mechanical Ventilation Fraction of Inspired Oxygen 01/26/25 08:00 01/26/25 08:00 01/26/25 08:05 Temperature Pulse Rate 79 Respiratory Rate 16 Blood Pressure Pulse Oximetry 96 Oxygen Delivery Mechanical Ventilation Mechanical Ventilation Fraction of Inspired Oxygen 35 35 01/26/25 08:06 01/26/25 08:12 01/26/25 08:45 Temperature Pulse Rate 78 78 Respiratory Rate Blood Pressure Pulse Oximetry 95 96 Oxygen Delivery Mechanical Ventilation Mechanical Ventilation Mechanical Ventilation Fraction of Inspired Oxygen 35 01/26/25 10:00 01/26/25 10:00 01/26/25 11:30 Temperature 98.0 F Pulse Rate 80 79 80 Respiratory Rate 16 Blood Pressure 138/94 H Pulse Oximetry 94 97 Oxygen Delivery Mechanical Ventilation Fraction of Inspired Oxygen 01/26/25 12:00 01/26/25 12:00 01/26/25 12:00 Temperature 98.2 F Pulse Rate 81 82 Respiratory Rate 16 12 Blood Pressure 135/92 H Pulse Oximetry 96 97 Oxygen Delivery Mechanical Ventilation Fraction of Inspired Oxygen 35 35 Intake/Output Intake/Output: Intake & Output 01/23/25 01/24/25 01/25/25 01/26/25 23:59 23:59 23:59 23:59 Intake Total 806.2 2010.5 1056.5 816 Output Total 3100 1475 1050 650 Balance -2293.8 535.5 6.5 166 Meds/Results Medications: Active Medications Generic Name Dose Route Start Last Admin Trade Name Freq PRN Reason Stop Dose Admin Acetaminophen 650 mg 01/23/25 14:11 01/23/25 18:43 Acetaminophen 325 Mg Tablet FEED TUBE 650 mg Q4H PRN Administration Fever 1-3 Albuterol/Ipratropium 3 ml 01/26/25 14:00 Ipratropium 0.5 Mg/Albuterol Sulfate 2.5 Mg Ampul.Neb 3 Ml INHALATION Q6HRT MEENA Amlodipine Besylate 5 mg 01/25/25 09:00 01/26/25 08:20 Amlodipine Besylate 5 Mg Tablet FEED TUBE 5 mg DAILY MEENA Administration Budesonide 0.5 mg 01/26/25 10:00 Budesonide Respule Neb 0.5 Mg/2 Ml Amp INHALATION Q12HRT MEENA Dextrose 12.5 gm 01/20/25 08:23 Dextrose 50% 25 Gm/50 Ml Syringe IV PUSH PRN PRN Hypoglycemia Protocol Epoetin Emil-epbx 10,000 units 01/23/25 09:00 01/26/25 08:20 Epoetin Emil-Epbx 10,000 Units/Ml Vial SUB-Q 10,000 units TUTHSA@09 MEENA Administration Folic Acid 1 mg 01/20/25 09:00 01/26/25 08:20 Folic Acid 1 Mg/0.2 Ml Inj IV PUSH 1 mg QAM MEENA Administration Glucagon 1 mg 01/20/25 08:23 Glucagon For Inj 1 Mg Vial IM PRN PRN Hypoglycemia Protocol Glucose 15 gm 01/20/25 08:23 Glucose Oral Gel 15 Gm Of Glucse In 37.5 Gm Tube PO PRN PRN Hypoglycemia Protocol Hydralazine HCl 20 mg 01/24/25 03:34 01/26/25 05:50 Hydralazine Hcl 20 Mg/Ml Vial IV PUSH 20 mg Q4H PRN Administration Hypertension Dextrose 1,000 mls @ 100 mls/hr 01/20/25 08:23 Dextrose 5% 1,000 Ml IVPB PRN PRN Hypoglycemia Protocol Piperacillin Sod/Tazobactam 50 mls @ 100 mls/hr 01/21/25 08:00 01/26/25 08:50 Sod 2.25 gm/ Sodium Chloride IVPB 01/26/25 23:59 Infused Q8H MEENA Infusion Insulin Aspart 3 - 6 units 01/20/25 12:00 01/26/25 12:14 Insulin Aspart (*Bkc) 100 Units/Ml SUB-Q Not Given Q6HR [facility] Protocol Labetalol HCl 20 mg 01/23/25 09:31 01/26/25 01:43 Labetalol Hcl Inj 100 Mg/20 Ml Vial IV PUSH 20 mg Q4H PRN Administration SBP > 160 and HR> 60 -1st choice Multi-Ingred Cream/Lotion/Oil/Oint 1 applic 01/22/25 21:00 01/26/25 08:20 Mineral Oil/White Petrolatum Ointment EACH EYE Not Given Q12HR MEENA Pantoprazole Sodium 40 mg 01/21/25 09:00 01/26/25 08:20 Pantoprazole Sodium Iv 40 Mg Vial IV PUSH 40 mg Q12HR MEENA Administration Sodium Chloride 10 ml 01/20/25 06:00 01/26/25 07:58 Central Line Flush IV PUSH 10 ml Q8HR MEENA Administration Sodium Chloride 20 ml 01/20/25 01:15 01/24/25 04:56 Central Line Flush IV PUSH 20 ml PRN PRN Administration after blood draws Thiamine HCl 100 mg 01/20/25 09:00 01/26/25 08:20 Thiamine Hcl 200 Mg/2 Ml Vial IV PUSH 100 mg QAM MEENA Administration Radiology Results: ITS Impressions Abdomen X-Ray 01/20/25 05:42 Impression: NG tube in satisfactory position. Small left pleural effusion. Chest/Abdomen/Pelvis CT 01/20/25 05:48 Impression: Moderate to large left pleural effusion with extensive left lower lobe atelectasis. Small right pleural effusion. 9 mm spiculated nodule in the right lower lobe, as detailed above, indetermi rich. CT scan in 3 months advised. Consider PET/CT or attempted tissue sampling as indicated. Moderate emphysema. No definite evidence for GI bleed, but evaluation is limited without IV contrast and with oral contrast on board. Consider follow-up CT angiogram of the bowel to further evaluate for GI bleed, as indicated. Moderate abdominopelvic ascites. T12 compression fracture, somewhat age indeterminate, but new since 06/20/2024. Fractures of the right anterior acetabulum at the junction of the right superior pubic ramus and of the right inferior pubic ramus, acute to subacute in nature. Head CT 01/20/25 06:13 Impression: No intracranial hemorrhage, mass, or acute infarct. Atrophy and chronic white matter changes, as above. Wrist X-Ray 01/20/25 06:13 Impression: Probable chronic fracture deformities of the distal radius and ulnar styloid process, as detailed above. No definite acute fracture. Renal Ultrasound 01/21/25 08:42 IMPRESSION: 1. Medical renal disease. 2. Mild bilateral hydronephrosis. No nephrolithiasis. Hip/Pelvis X-Ray 01/24/25 11:12 Impression: 1: Healing right acetabular and inferior pubic rami fractures with callus formation. Chest X-Ray 01/26/25 07:05 Impression: 1: Stable retrocardiac opacification most likely atelectasis. Superimposed pn eumonia not excluded. Labs Labs: Laboratory Results - last 24 hr 01/25/25 01/26/25 01/26/25 17:32 04:42 05:14 WBC 7.9 RBC 3.81 L Hgb 11.5 L Hct 37.6 MCV 98.7 MCH 30.2 MCHC 30.6 L RDW 20.2 H Plt Count 43 L MPV 10.1 % Immature Plt Fraction 3.1 PT INR APTT Fibrinogen D-Dimer Puncture Site Right radial ABG pH 7.449 ABG pCO2 43.7 ABG pO2 104.6 H ABG PO2/FiO2 Ratio 2.99 ABG HCO3 29.6 H ABG O2 Saturation 98.0 ABG O2 Content 17.2 ABG Base Excess 5.0 A-a Gradient 94.2 Oxyhemoglobin 97.1 Carboxyhemoglobin 0.9 Methemoglobin 0.2 Reduced Hemoglobin 1.8 Total Hemoglobin 12.5 O2 Delivery Device Ventilator O2 Liters/Min Not Reportable Minute Volume Not Reportable Vent Rate 14 Vent Mode Cmv FiO2 35 Tidal Volume 320 PEEP 5 Peak Inspir Pressure Not Reportable Pressure Support Not Reportable Sodium 144 Potassium 3.7 Chloride 108 H Carbon Dioxide 29 Anion Gap 7 BUN 75 H Creatinine 2.18 H Estim Creat Clear Calc 16 Estimated GFR 23 L Glucose 120 H POC Capillary Glucose 121 H Calcium 8.0 L Phosphorus 1.3 L Magnesium 1.7 Total Bilirubin 0.9 AST 33 ALT 28 Alkaline Phosphatase 73 Total Protein 5.4 L Albumin 3.1 L Triglycerides 100 01/26/25 01/26/25 01/26/25 07:33 08:24 12:13 WBC 8.2 RBC 3.88 L Hgb 11.4 L D Hct 37.8 MCV 97.4 D MCH 29.4 MCHC 30.2 L RDW 20.1 H Plt Count 41 L D MPV 12.0 H % Immature Plt Fraction 3.0 PT 14.8 H INR 1.1 APTT 34.2 Fibrinogen 245 D-Dimer 2.62 H Puncture Site ABG pH ABG pCO2 ABG pO2 ABG PO2/FiO2 Ratio ABG HCO3 ABG O2 Saturation ABG O2 Content ABG Base Excess A-a Gradient Oxyhemoglobin Carboxyhemoglobin Methemoglobin Reduced Hemoglobin Total Hemoglobin O2 Delivery Device O2 Liters/Min Minute Volume Vent Rate Vent Mode FiO2 Tidal Volume PEEP Peak Inspir Pressure Pressure Support Sodium Potassium Chloride Carbon Dioxide Anion Gap BUN Creatinine Estim Creat Clear Calc Estimated GFR Glucose POC Capillary Glucose 117 H 114 H Calcium Phosphorus Magnesium 1.5 L Total Bilirubin AST ALT Alkaline Phosphatase Total Protein Albumin Triglycerides
[2025-01-26] MEDS: IPRATROPIUM 0.5 MG/ALBUTEROL SULFATE 2.5 MG AMPUL.NEB 3 ML INHALATION ×2 (15:08→19:57)
[2025-01-26] MEDS: BUDESONIDE RESPULE NEB 0.5 MG/2 ML AMP INHALATION ×2 (15:08→19:57)
--- NOTE | 2025-01-26 16:36 | PCRCNOTE ---
Per Dr. Fitzgerald call respiratory to place patient on ASV if she fails PSV.
--- NOTE | 2025-01-26 19:14 | PC.NURSE ---
Updated patient's sister Theresa who is also POA. Informed her of ongoing breathing trials and plans for possibly extubating tomorrow. Jaci is nodding appropriately to yes/no questions. I asked if she would like anyone to be present tomorrow and she nodded yes. Theresa said that she would not be able to be present for extubation or rounds to discuss treatment plan as she is picking up her bipap tomorrow. At this time patient remains a full code.
[2025-01-26] MEDS: ACETAMINOPHEN 325 MG TABLET 650 MG FEED TUBE (20:36)
[2025-01-27] VITALS (31 sets, daily range): BP systolic 136–172; BP diastolic 85–106; PULSE 71–93; RESP 9–19; TEMP 36–37.9; O2SAT 96–100
[2025-01-27] MEDS: IPRATROPIUM 0.5 MG/ALBUTEROL SULFATE 2.5 MG AMPUL.NEB 3 ML INHALATION ×4 (01:28→20:21)
[2025-01-27 05:37] LABS: Carboxyhemoglobin 1.0 % THb (0-2.0); Fractional Inspired Oxygen 35 %; HCO3 ABG 27.7 mEq/l (22.0-26.0); Methemoglobin ABG 0.1 %THb (0-1.5); PCO2 ABG 33.2 mmHg (35.0-45.0); Reduced Hemoglobin 1.3 %THb (0-5.0)
[2025-01-27 05:40] LABS: Hematocrit 35.4 % (37.0-47.0); Hemoglobin 10.9 g/dL (12.0-15.0); Immature Platelet Fraction Pct 3.8 % (0.9-11.2); Mean Corpuscular HGB Conc 30.8 g/dl (32-36); Mean Corpuscular Hemoglobin 29.9 pg (26-34); Mean Corpuscular Volume 97.0 fl (80-100); Platelet Count Result 34 k/mm3 (150-375); Red Blood Count 3.65 M/mm3 (4.2-5.4); White Blood Count 9.5 K/mm3 (4.5-10.0)
[2025-01-27 05:53] LABS: Modified Allen's Test Pass; Site Drawn RIGHT RADIAL
[2025-01-27 05:58] LABS: Alanine Aminotransferase 29 U/L (6-35); Albumin Level 3.1 g/dL (3.5-5.1); Alkaline Phosphatase 73 U/L (38-126); Anion Gap 7 mmol/L (4-12); Aspartate Amino Transferase 34 U/L (14-36); Bilirubin,Total 1.2 mg/dL (0.2-1.3); Blood Urea Nitrogen 73 mg/dL (7-17); Calcium 8.1 mg/dL (8.4-10.2); Carbon Dioxide 31 mmol/L (22-30); Chloride 106 mmol/L (98-107); Estimated CRCL calculation 15 ml/min; Estimated Glomerular Filt Rate 23; Glucose 145 mg/dL (65-110); Magnesium 2.1 mg/dL (1.6-2.3); Potassium 3.7 mmol/L (3.4-5.0); Sodium 144 mmol/L (137-145); Total Protein 5.3 g/dL (6.3-8.2)
[2025-01-27] MEDS: CENTRAL LINE FLUSH 10 ML IV PUSH ×3 (06:20→21:51)
[2025-01-27] MEDS: THIAMINE HCL 200 MG/2 ML VIAL 100 MG IV PUSH (08:24)
[2025-01-27] MEDS: FUROSEMIDE INJ 40 MG/4 ML VIAL 20 MG IV PUSH (08:24)
[2025-01-27] MEDS: FOLIC ACID 1 MG/0.2 ML INJ IV PUSH (08:24)
[2025-01-27] MEDS: POTASSIUM/PHOSPHORUS/SODIUM 1.5 GM PACKET 2 PACKET PO (08:24)
[2025-01-27] MEDS: PANTOPRAZOLE SODIUM IV 40 MG VIAL IV PUSH ×2 (08:24→21:51)
[2025-01-27] MEDS: BUDESONIDE RESPULE NEB 0.5 MG/2 ML AMP INHALATION ×2 (08:28→20:21)
[2025-01-27] MEDS: POTASSIUM PHOS,M-BASIC-D-BASIC 20 MMOL in SODIUM CHLORIDE 0.9% IV 250 ML 64.17 MMOL IVPB (08:33)
--- NOTE | 2025-01-27 09:21 | P.PNINT_ITS ---
Progress Note: A&P Assessment and Plan (1) Acute hypoxic respiratory failure: Code(s): J96.01 - Acute respiratory failure with hypoxia Status: Acute Assessment and Plan: Acute respiratory failure secondary to aspiration pneumonia pleural effusion upper GI bleed with underlying COPD 01/20: Intubated in the ER on admission 01/24 patient was successfully extubated, Post extubation patient was tachypneic. She was placed on BiPAP but her tachypnea and work of breathing worsened and she complained of being short of breath. Was reintubate about an hour post extubation on the same day 01/24: Reintubated 01/26: Remains on CMV mode of ventilation, peep of 5, 35% FiO2. place patient back on PSV 01/05, patient does go in and out of apnea ventilation. Overnight she was placed in ASV mode will tolerated well -chest x-ray and ABGs reviewed this morning -significantly cachectic and weak, may require prolonged SBT before extubation, may extubated directly to BiPAP given her severe COPD, will discuss with patient and her POA before extubating -continue bronchodilators and budesonide given her underlying COPD 01/27: Placed her on SBT 01/05, patient is going in and out of apnea ventilation, will diurese with Lasix 20 mg IV x1 (2) Acute upper GI bleeding: Code(s): K92.2 - Gastrointestinal hemorrhage, unspecified Status: Acute Assessment and Plan: Acute upper GI bleed 01/20 EGD showed reflux/erosive/ulcerative esophagitis and hiatal hernia, no variceal bleed Status post transfusion of multiple units of PRBC Coagulopathy cryo and FFP Hemoglobin appears to be now stable. I will continue monitoring hemoglobin and transfuse additional PRBC if needed continue IV PPI. Octreotide was discontinued GI following (3) Transaminitis: Code(s): R74.01 - Elevation of levels of liver transaminase levels Status: Acute Assessment and Plan: AST and ALT mildly elevated likely consistent with alcoholic liver disease. Hepatitis C antibody screen is positive. RNA quantitative is [id number] -LFTs have normalized, continue to monitor (4) Alcoholic cirrhosis of liver with ascites: Code(s): K70.31 - Alcoholic cirrhosis of liver with ascites Status: Acute Assessment and Plan: Patient has cirrhosis from alcohol liver disease with CT scan showing ascites (5) Acute kidney injury superimposed on stage 4 chronic kidney disease: Code(s): N17.9 - Acute kidney failure, unspecified; N18.4 - Chronic kidney disease, stage 4 (severe) Status: Acute Assessment and Plan: Baseline creatinine in mid 2 Patient was given IV fluids but now off due to concern of volume overload and patient has also received significant amount of blood products. Creatinine improved to 2.40 Monitor urine output electrolytes and creatinine CT scans not show any obstruction or stone Renal ultrasound showed mild bilateral hydronephrosis without any stones Appreciate nephrology following the patient. Patient responded well to Lasix for volume overload Chest x-ray shows bilateral infiltrates, possible edema, pneumonia or atelectasis, will give additional dose of Lasix today Replace phosphorus (6) Coagulopathy: Code(s): D68.9 - Coagulation defect, unspecified Status: Acute Assessment and Plan: Coagulopathy secondary to cirrhosis and sepsis Patient received cryo and platelets, and FFP (7) Sepsis: Code(s): A41.9 - Sepsis, unspecified organism Status: Acute Assessment and Plan: Sepsis likely secondary to pneumonia which could be aspiration Blood cultures grew Staph hominis which is likely contaminant. Will discontinue vancomycin On IV Zosyn (end date 01/26) UA and micro also suggestive UTI. Urine cultures Negative (8) Anemia: Code(s): D64.9 - Anemia, unspecified Status: Acute Assessment and Plan: Likely multifactorial anemia from iron deficiency and anemia of chronic kidney disease along with acute blood loss Patient received a dose of iron And she has received for units of PRBC. Hemoglobin appears to have stabilized Monitor and transfuse additional if needed Management of GI bleeding as above Neupogen per Nephrology (9) Thrombocytopenia: Code(s): D69.6 - Thrombocytopenia, unspecified Status: Acute Assessment and Plan: Thrombocytopenia likely combination of sepsis and cirrhosis. 01/20 Platelet transfusion (10) Alcohol abuse: Code(s): F10.10 - Alcohol abuse, uncomplicated Status: Acute Assessment and Plan: History of alcohol abuse. Off all sedation Continue thiamine and folic acid (11) Severe protein-calorie malnutrition: Code(s): E43 - Unspecified severe protein-calorie malnutrition Status: Acute Assessment and Plan: Appears Malnourished and cachectic. -Now on tube feeds. (12) Acetabular fracture: Qualifiers: Encounter type: initial encounter Fracture alignment: nondisplaced Fracture type: closed Laterality: right Sublocation of acetabulum: unspecified portion of acetabulum Qualified Code(s): S32.401A - Unspecified fracture of right acetabulum, initial encounter for closed fracture Code(s): S32.409A - Unspecified fracture of unspecified acetabulum, initial encounter for closed fracture Status: Acute Assessment and Plan: Orthopedics evaluate the patient . No further recommendations at this time (13) Distal radial fracture: Qualifiers: Encounter type: subsequent encounter Fracture healing: with nonunion Fracture morphology: unspecified fracture morphology Fracture type: closed Laterality: left Qualified Code(s): S52.502K - Unspecified fracture of the lower end of left radius, subsequent encounter for closed fracture with nonunion Code(s): S52.509A - Unspecified fracture of the lower end of unspecified radius, initial encounter for closed fracture Status: Acute Assessment and Plan: seen by orthopedics. Splint removed as per recommendations. Plan DVT prophylaxis -SCDs Stress ulcer prophylaxis -Protonix IV Nutrition -continue tube feeds Code Status - Full Code Total Critical Care Time - 32 minutes Due to a high probability of clinically significant, life threatening deterioration, the patient required my highest level of preparedness to intervene emergently and I personally spent this critical care time directly and personally managing the patient. This critical care time included obtaining a history; examining the patient; pulse oximetry; ordering and review of studies; arranging urgent treatment with development of a management plan; evaluation of patient's response to treatment; frequent reassessment; and discussions with other providers. It was exclusive of separately billable procedures and treating other patients and teaching time. Please see Assessment and Plan section and the rest of the note for further information on patient assessment and treatment This dictation may have been done utilizing a voice recognition system. Attempts have been made to correct errors. However, there may be uncorrected grammatical, spelling, and recognitions errors present. Subjective Date/time seen: 01/27/25 09:21 Interval history: Reason for consult, GI bleed, acute renal failure, hypotension, shock, pneumonia, respiratory failure, required multiple blood product transfusion, transaminitis coagulopathy, thrombocytopenia, alcohol abuse, severe protein calorie malnutrition, acetabular fracture, distal radial fracture 01/20: EGD showed reflux/erosive/ulcerative esophagitis, hiatal hernia. No varices 01/20: Intubation in the ER 01/24: Extubated 08/24: Reintubated 01/27/2025: Patient seen and examined the ICU, remains intubated, on ASV mode, 35% FiO2. Patient tolerated PSV mode all day yesterday, had episodes of apneic ventilation and was placed back into spontaneous mode. Sedation has been off > 48 hrs. Patient is awake, nods to questions and follows simple commands in all extremities. States her breathing is not too good, do without placed her on this spontaneous trial heart tidal volumes were adequate and she was not tachypneic. Adequate urine output, afebrile and hemodynamically stable, elevated blood pressures Review of Systems Review of Systems: ROS unobtainable: Yes unobtainable due to endotracheal tube, unobtainable due to medical condition and unobtainable due to mental status Exam Narrative: General: Pt is cachectic, appears older than her age, intubated, off all sedation, in no acute distress HEENT: Pupils are equal and reactive, sclera is clear, ETT in place Lungs/Chest: Good air entry in all regions, decreased at bases, no wheezing, adequate air entry Cardiac: RRR. Normal S1 S2. No murmurs Abdomen: Decreased bowel sounds. Soft. NT. ND. Extremities: No clubbing, cyanosis or edema. Pedal pulses are intact : Mclean in place Neurologic: Off all sedation, patient remains intubated, is awake, alert, nods to questions, follows simple commands in all extremities. Strength is weak in all extremities Skin: Petechia on the chest Objective Data Vital Signs Vital Signs: Vital Signs - 24 hr 01/26/25 10:00 01/26/25 10:00 01/26/25 11:30 Temperature 98.0 F Pulse Rate 80 79 80 Respiratory Rate 16 Blood Pressure 138/94 H Pulse Oximetry 94 97 Oxygen Delivery Mechanical Ventilation Fraction of Inspired Oxygen 01/26/25 12:00 01/26/25 12:00 01/26/25 12:00 Temperature 98.2 F Pulse Rate 81 82 Respiratory Rate 16 12 Blood Pressure 135/92 H Pulse Oximetry 96 97 Oxygen Delivery Mechanical Ventilation Fraction of Inspired Oxygen 35 35 01/26/25 12:00 01/26/25 13:49 01/26/25 14:00 Temperature 98.0 F Pulse Rate 81 82 82 Respiratory Rate 22 H Blood Pressure 144/92 H Pulse Oximetry 96 Oxygen Delivery Fraction of Inspired Oxygen 01/26/25 15:20 01/26/25 16:00 01/26/25 16:00 Temperature 98.1 F Pulse Rate 83 80 80 Respiratory Rate 14 Blood Pressure 147/103 H Pulse Oximetry 97 95 Oxygen Delivery Mechanical Ventilation Fraction of Inspired Oxygen 01/26/25 16:00 01/26/25 17:40 01/26/25 18:00 Temperature Pulse Rate 80 82 81 Respiratory Rate 14 Blood Pressure Pulse Oximetry 96 97 Oxygen Delivery Mechanical Ventilation Mechanical Ventilation Fraction of Inspired Oxygen 35 01/26/25 18:00 01/26/25 19:46 01/26/25 19:57 Temperature 97.9 F Pulse Rate 80 82 82 Respiratory Rate 14 12 Blood Pressure 141/96 H Pulse Oximetry 97 96 Oxygen Delivery Mechanical Ventilation Fraction of Inspired Oxygen 35 01/26/25 20:00 01/26/25 20:00 01/26/25 20:00 Temperature 98.3 F Pulse Rate 82 Respiratory Rate 12 Blood Pressure 160/98 H Pulse Oximetry 96 96 Oxygen Delivery Mechanical Ventilation Fraction of Inspired Oxygen 100 100 01/26/25 20:00 01/26/25 22:00 01/26/25 22:00 Temperature 99.0 F Pulse Rate 80 87 87 Respiratory Rate 14 Blood Pressure 167/103 H Pulse Oximetry 100 Oxygen Delivery Fraction of Inspired Oxygen 01/26/25 22:14 01/26/25 23:11 01/27/25 00:00 Temperature Pulse Rate 87 83 84 Respiratory Rate Blood Pressure Pulse Oximetry 97 Oxygen Delivery Mechanical Ventilation Fraction of Inspired Oxygen 35 01/27/25 00:00 01/27/25 00:00 01/27/25 00:00 Temperature 100.3 F H Pulse Rate 82 Respiratory Rate 12 Blood Pressure 140/88 Pulse Oximetry 97 97 Oxygen Delivery Mechanical Ventilation Fraction of Inspired Oxygen 100 100 01/27/25 01:28 01/27/25 01:29 01/27/25 02:00 Temperature Pulse Rate 86 86 85 Respiratory Rate 13 Blood Pressure Pulse Oximetry 96 Oxygen Delivery Mechanical Ventilation Fraction of Inspired Oxygen 35 01/27/25 02:00 01/27/25 04:00 01/27/25 04:00 Temperature 99.8 F H 99.4 F Pulse Rate 85 87 Respiratory Rate 12 12 Blood Pressure 151/96 H 147/95 H Pulse Oximetry 96 96 Oxygen Delivery Fraction of Inspired Oxygen 100 01/27/25 04:00 01/27/25 04:00 01/27/25 05:13 Temperature Pulse Rate 88 93 Respiratory Rate Blood Pressure Pulse Oximetry 96 97 Oxygen Delivery Mechanical Ventilation Mechanical Ventilation Fraction of Inspired Oxygen 100 35 01/27/25 06:00 01/27/25 06:00 01/27/25 08:00 Temperature 99.9 F H 99.0 F Pulse Rate 90 90 86 Respiratory Rate 13 12 Blood Pressure 150/92 H 169/100 H Pulse Oximetry 96 97 Oxygen Delivery Fraction of Inspired Oxygen 01/27/25 08:28 01/27/25 08:36 01/27/25 08:41 Temperature Pulse Rate 88 87 87 Respiratory Rate 10 L 9 L Blood Pressure Pulse Oximetry 96 Oxygen Delivery Mechanical Ventilation Fraction of Inspired Oxygen 35 Intake/Output Intake/Output: Intake & Output 01/24/25 01/25/25 01/26/25 01/27/25 23:59 23:59 23:59 23:59 Intake Total 2010.5 1311.5 1494 1016 Output Total 1475 1050 900 400 Balance 535.5 261.5 594 616 Meds/Results Medications: Active Medications Generic Name Dose Route Start Last Admin Trade Name Freq PRN Reason Stop Dose Admin Acetaminophen 650 mg 01/23/25 14:11 01/26/25 20:36 Acetaminophen 325 Mg Tablet FEED TUBE 650 mg Q4H PRN Administration Fever 1-3 Albuterol/Ipratropium 3 ml 01/26/25 14:00 01/27/25 08:27 Ipratropium 0.5 Mg/Albuterol Sulfate 2.5 Mg Ampul.Neb 3 Ml INHALATION 3 ml Q6HRT MEENA Administration Amlodipine Besylate 5 mg 01/25/25 09:00 01/27/25 08:24 Amlodipine Besylate 5 Mg Tablet FEED TUBE 5 mg DAILY MEENA Administration Budesonide 0.5 mg 01/26/25 10:00 01/27/25 08:28 Budesonide Respule Neb 0.5 Mg/2 Ml Amp INHALATION 0.5 mg Q12HRT MEENA Administration Dextrose 12.5 gm 01/20/25 08:23 Dextrose 50% 25 Gm/50 Ml Syringe IV PUSH PRN PRN Hypoglycemia Protocol Epoetin Emil-epbx 10,000 units 01/23/25 09:00 01/26/25 08:20 Epoetin Emil-Epbx 10,000 Units/Ml Vial SUB-Q 10,000 units TUTHSA@09 MEENA Administration Folic Acid 1 mg 01/20/25 09:00 01/27/25 08:24 Folic Acid 1 Mg/0.2 Ml Inj IV PUSH 1 mg QAM MEENA Administration Glucagon 1 mg 01/20/25 08:23 Glucagon For Inj 1 Mg Vial IM PRN PRN Hypoglycemia Protocol Glucose 15 gm 01/20/25 08:23 Glucose Oral Gel 15 Gm Of Glucse In 37.5 Gm Tube PO PRN PRN Hypoglycemia Protocol Hydralazine HCl 20 mg 01/24/25 03:34 01/26/25 05:50 Hydralazine Hcl 20 Mg/Ml Vial IV PUSH 20 mg Q4H PRN Administration Hypertension Hydralazine HCl 25 mg 01/27/25 07:40 01/27/25 08:24 Hydralazine Hcl 25 Mg Tablet PO 25 mg Q8HR MEENA Administration Dextrose 1,000 mls @ 100 mls/hr 01/20/25 08:23 Dextrose 5% 1,000 Ml IVPB PRN PRN Hypoglycemia Protocol Potassium Phosphate 20 mmol/ 256.6667 mls @ 64.167 mls/hr 01/27/25 08:00 Sodium Chloride IVPB 01/27/25 11:59 ONCE ONE Insulin Aspart 3 - 6 units 01/20/25 12:00 01/27/25 07:16 Insulin Aspart (*Bkc) 100 Units/Ml SUB-Q Not Given Q6HR [facility] Protocol Labetalol HCl 20 mg 01/23/25 09:31 01/26/25 22:14 Labetalol Hcl Inj 100 Mg/20 Ml Vial IV PUSH 20 mg Q4H PRN Administration SBP > 160 and HR> 60 -1st choice Multi-Ingred Cream/Lotion/Oil/Oint 1 applic 01/22/25 21:00 01/27/25 08:24 Mineral Oil/White Petrolatum Ointment EACH EYE Not Given Q12HR MEENA Pantoprazole Sodium 40 mg 01/21/25 09:00 01/27/25 08:24 Pantoprazole Sodium Iv 40 Mg Vial IV PUSH 40 mg Q12HR MEENA Administration Sodium Chloride 10 ml 01/20/25 06:00 01/27/25 06:20 Central Line Flush IV PUSH 10 ml Q8HR MEENA Administration Sodium Chloride 20 ml 01/20/25 01:15 01/24/25 04:56 Central Line Flush IV PUSH 20 ml PRN PRN Administration after blood draws Thiamine HCl 100 mg 01/20/25 09:00 01/27/25 08:24 Thiamine Hcl 200 Mg/2 Ml Vial IV PUSH 100 mg QAM MEENA Administration Radiology Results: ITS Impressions Abdomen X-Ray 01/20/25 05:42 Impression: NG tube in satisfactory position. Small left pleural effusion. Chest/Abdomen/Pelvis CT 01/20/25 05:48 Impression: Moderate to large left pleural effusion with extensive left lower lobe atelectasis. Small right pleural effusion. 9 mm spiculated nodule in the right lower lobe, as detailed above, indeterminate. CT scan in 3 months advised. Consider PET/CT or attempted tissue sampling as indicated. Moderate emphysema. No definite evidence for GI bleed, but evaluation is limited without IV contrast and with oral contrast on board. Consider follow-up CT angiogram of the bowel to further evaluate for GI bleed, as indicated. Moderate abdominopelvic ascites. T12 compression fracture, somewhat age indeterminate, but new since 06/20/2024. Fractures of the right anterior acetabulum at the junction of the right superior pubic ramus and of the right inferior pubic ramus, acute to subacute in nature. Head CT 01/20/25 06:13 Impression: No intracranial hemorrhage, mass, or acute infarct. Atrophy and chronic white matter changes, as above. Wrist X-Ray 01/20/25 06:13 Impression: Probable chronic fracture deformities of the distal radius and ulnar styloid process, as detailed above. No definite acute fracture. Renal Ultrasound 01/21/25 08:42 IMPRESSION: 1. Medical renal disease. 2. Mild bilateral hydronephrosis. No nephrolithiasis. Hip/Pelvis X-Ray 01/24/25 11:12 Impression: 1: Healing right acetabular and inferior pubic rami fractures with callus formation. Chest X-Ray 01/27/25 05:49 Impression: 1: Bilateral infiltrates may represent a combination of edema, pneumonia and/or atelectasis. Labs Labs: Laboratory Results - last 24 hr 01/26/25 01/26/25 01/26/25 08:24 12:13 18:19 WBC RBC Hgb Hct MCV MCH MCHC RDW Plt Count MPV % Immature Plt Fraction Puncture Site ABG pH ABG pCO2 ABG HCO3 ABG Base Excess Oxyhemoglobin Carboxyhemoglobin Methemoglobin Reduced Hemoglobin Total Hemoglobin O2 Delivery Device O2 Liters/Min Minute Volume Vent Rate Vent Mode FiO2 Tidal Volume PEEP Peak Inspir Pressure Pressure Support Sodium Potassium Chloride Carbon Dioxide Anion Gap BUN Creatinine Estim Creat Clear Calc Estimated GFR Glucose POC Capillary Glucose 114 H 123 H Calcium Phosphorus Magnesium 1.5 L Total Bilirubin AST ALT Alkaline Phosphatase Total Protein Albumin 01/27/25 01/27/25 01/27/25 00:03 04:49 05:17 WBC 9.5 RBC 3.65 L Hgb 10.9 L Hct 35.4 L MCV 97.0 MCH 29.9 MCHC 30.8 L RDW 21.3 H Plt Count 34 L MPV TNP % Immature Plt Fraction 3.8 Puncture Site Right radial ABG pH 7.539 H* ABG pCO2 33.2 L ABG HCO3 27.7 H ABG Base Excess 5.3 Oxyhemoglobin 97.6 Carboxyhemoglobin 1.0 Methemoglobin 0.1 Reduced Hemoglobin 1.3 Total Hemoglobin 11.8 L O2 Delivery Device Ventilator O2 Liters/Min Not Reportable Minute Volume Not Reportable Vent Rate Not Reportable Vent Mode Asv FiO2 35 Tidal Volume Not Reportable PEEP 5 Peak Inspir Pressure Not Reportable Pressure Support Not Reportable Sodium 144 Potassium 3.7 Chloride 106 Carbon Dioxide 31 H Anion Gap 7 BUN 73 H Creatinine 2.20 H Estim Creat Clear Calc 15 Estimated GFR 23 L Glucose 145 H POC Capillary Glucose 105 Calcium 8.1 L Phosphorus 1.4 L Magnesium 2.1 Total Bilirubin 1.2 AST 34 ALT 29 Alkaline Phosphatase 73 Total Protein 5.3 L Albumin 3.1 L Quality VTE Prophylaxis VTE prophylaxis: mechanical ordered
--- NOTE | 2025-01-27 11:59 | PCFNICU ---
ICU Rounding Note: Pt current nutrition is Nepro at 40 ml/hr. . Last recorded weight is 39.3 kg, down from 40 kg on admit Bowel Motility: Last reported BM 01/27 Labs Reviewed:PO4 1.4, BUN 73, Cr 2.2, Glu 145, Alb 3.1 Meds Noted:Thiamine, Folic Acid, Protonix Skin: WNL Additional Notes: Patient remains on mechanical vent. Tube feedings are being tolerated of Nepro at 40 ml/hr with flush of 75 ml q 4 hours. Total Nutrition: 1584 kcal/71 gm protein/640 ml water. Agree with diet orders. Following daily in ICU rounds. Will monitor weight, labs, skin, diet orders, meds every Saturday and Saturday. .
--- NOTE | 2025-01-27 12:40 | P.PNNP_ITS ---
Progress Note: A&P Assessment and Plan (1) Acute kidney injury: Code(s): N17.9 - Acute kidney failure, unspecified Status: Acute Assessment and Plan: * relatively stable if not better * as noted on admission (creatinine of 3.43mg/dl) * likely due to multiple issues: * prerenal factors (poor nutrition) * anemia/GI bleed * infection/sepsis (+ blood cultures) * respiratory failure * hypoxia * liver disease/cirrhosis * progression of underlying CKD * other(?) * evaluation to date noted: * renal ultrasound with CKD and mild bilateral hydronephrosis - mcqueen cathter placed * urine electrolytes prerenal - suspect due to a combination of poor oral intake AND liver disease/physiology (decreased effective circulating volume) * urine eosinophils negative * CPK low * ~ 2 grams of proteinuria * maintain hemodynamics and H/H as tolerated * noted reasonable urine output * responsive to IV diuretic therapy * follow trend of repeat labs and UOP (2) Stage 4 chronic kidney disease: Code(s): N18.4 - Chronic kidney disease, stage 4 (severe) Status: Chronic Assessment and Plan: * not entirely clear what baseline creatinine really is.... * was noted to be ~ 1.4 - 1.6mg/dl in June 2024 * however, since December 2024, has been running ~ 2.4 - 2.6mg/dl (from record review from [facility]) * most recent labs done on 01/15/25 -- creatinine up to 2.79mg/dl (ER visit at [facility] prior to leaving [facility]) * possible baseline creatinine around 2ish range?? (3) Acute hypoxic respiratory failure: Code(s): J96.01 - Acute respiratory failure with hypoxia Status: Acute Assessment and Plan: * multifactorial: * inability to protect airway * aspiration pneumonia * pleural effusions * suspected upper GI bleed * complicated by underlying COPD * imaging noted * IV diuretics PRN for fluid overload (follow CXR results) * failed trial of extubation (on 01/24) * continue ventilator support - weaning as tolerated (4) Acute upper GI bleeding: Code(s): K92.2 - Gastrointestinal hemorrhage, unspecified Status: Acute Assessment and Plan: * stable/resolved * suspected based on admission events/presentation * GI following * s/p EGD (on 01/20): * noted erosive esophagitis but no varices or bleeding lesions noted * PRBC transfusion per protocol * corrected coagulopathy * IV PPI * follow trend on H/H (5) Sepsis: Code(s): A41.9 - Sepsis, unspecified organism Status: Acute Assessment and Plan: * resolved * possibly from pneumonia (aspiration) versus UTI * follow culture data: * blood cultures (from 01/20): Staphylococcus hominis (suspect contamination) * urine culture - no growth to date * completed course off antibiotics * stable hemodynamics noted (6) Anemia: Code(s): D64.9 - Anemia, unspecified Status: Acute Assessment and Plan: * due to several issues: * due to underlying CKD * iron deficiency * #3 - GI following * liver disease * coagulopathy * other * PRBC transfusion as needed * Epogen while hospitalized * follow trend of H/H (7) Coagulopathy: Code(s): D68.9 - Coagulation defect, unspecified Status: Acute Assessment and Plan: * probably secondary to liver cirrhosis * complicated by thrombocytopenia also related to liver disease * s/p cryoprecipitate, platelets, and FFP transfusion (8) Alcoholic cirrhosis of liver with ascites: Code(s): K70.31 - Alcoholic cirrhosis of liver with ascites Status: Acute Assessment and Plan: * as evidence by admission CT/imaging findings * presumably partly related to alcohol intake * GI following (9) Transaminitis: Code(s): R74.01 - Elevation of levels of liver transaminase levels Status: Acute Assessment and Plan: * noted by admission labs * suspect secondary to/consistent with with alcoholic liver disease. * Hepatitis C antibody screen is positive -- RNA quantitative is [id number] * will need follow-up as an outpatient basis for hepatitis C infection (10) Acetabular fracture: Qualifiers: Encounter type: initial encounter Fracture alignment: nondisplaced F racture type: closed Laterality: right Sublocation of acetabulum: unspecified portion of acetabulum Qualified Code(s): S32.401A - Unspecified fracture of right acetabulum, initial encounter for closed fracture Code(s): S32.409A - Unspecified fracture of unspecified acetabulum, initial encounter for closed fracture Status: Acute Assessment and Plan: * as noted by admission CT imaging: * fractures of the right anterior acetabulum at the junction of the right superior pubic ramus and of the right inferior pubic ramus, acute to subacute in nature * Orthopedic Surgery recommendations * repeat imaging X-rays noted: healing right acetabular and inferior pubic rami fractures with callus formation (11) Distal radial fracture: Qualifiers: Encounter type: subsequent encounter Fracture type: closed Fracture morphology: unspecified fracture morphology Laterality: left Fracture healing: with nonunion Qualified Code(s): S52.502K - Unspecified fracture of the lower end of left radius, subsequent encounter for closed fracture with nonunion Code(s): S52.509A - Unspecified fracture of the lower end of unspecified radius, initial encounter for closed fracture Status: Acute Assessment and Plan: * apparently chronic in nature by X-rays * Orthopedic Surgery recommendations reviewed (12) Alcohol abuse: Code(s): F10.10 - Alcohol abuse, uncomplicated Status: Acute Assessment and Plan: * known history * on thiamine and folate Will continue to follow. L Subjective Date/time seen: 01/27/25 12:40 Interval history: Follow-up for acute kidney injury/acute renal failure on chronic kidney disease. Remains intubated and on mechanical ventilation but off sedation; she is awake and nods to yes/no questions and follows simple commands; renal function/creatinine remains relatively stable with good urine output noted; remains hemodynamically stable with some bouts of hypertension; ongoing ventilator weaning noted -- on PSV yesterday but with noted episodes of apnea requiring further ventilator support; no apparent distress noted. Exam 2 Narrative: General: chronically ill-appearing/cachectic female intubated & on mechanical ventilation (off sedation) Heart: normal S1 and S2; no rub Lungs: coarse breath sounds; decreased throughout Abdomen: soft, nontender, nondistended, positive bowel sounds Extremities: no cyanosis or clubbing; trace edema Skin: no nodules Objective Data Vital Signs Vital Signs: Vital Signs Temp Pulse Resp BP Pulse Ox O2 Del Method FiO2 01/27/25 12:00 97.9 F 75 13 149/97 H 97 01/27/25 12:00 75 01/27/25 12:00 75 12 96 Mechanical Ventilation 01/27/25 10:52 78 96 Mechanical Ventilation 35 01/27/25 10:38 148/99 H 01/27/25 10:15 163/103 H 01/27/25 10:15 89 01/27/25 10:00 98.8 F 90 19 160/106 H 96 01/27/25 10:00 98.8 F 89 15 160/106 H 97 01/27/25 10:00 89 01/27/25 08:41 87 9 L 01/27/25 08:36 87 96 Mechanical Ventilation 35 01/27/25 08:28 88 10 L 01/27/25 08:00 35 01/27/25 08:00 86 01/27/25 08:00 86 14 97 Mechanical Ventilation 01/27/25 08:00 99.0 F 86 12 169/100 H 97 01/27/25 06:00 99.9 F H 90 13 150/92 H 96 01/27/25 06:00 90 01/27/25 05:13 93 97 Mechanical Ventilation 35 01/27/25 04:00 88 01/27/25 04:00 96 Mechanical Ventilation 100 01/27/25 04:00 99.4 F 87 12 147/95 H 96 01/27/25 04:00 100 01/27/25 02:00 99.8 F H 85 12 151/96 H 96 01/27/25 02:00 85 01/27/25 01:29 86 96 Mechanical Ventilation 35 01/27/25 01:28 86 13 01/27/25 00:00 97 Mechanical Ventilation 100 01/27/25 00:00 100.3 F H 82 12 140/88 97 01/27/25 00:00 100 01/27/25 00:00 84 01/26/25 23:11 83 97 Mechanical Ventilation 35 01/26/25 22:14 87 01/26/25 22:00 99.0 F 87 14 167/103 H 100 01/26/25 22:00 87 01/26/25 20:00 80 01/26/25 20:00 98.3 F 82 12 160/98 H 96 01/26/25 20:00 96 Mechanical Ventilation 100 01/26/25 20:00 100 01/26/25 19:57 82 12 01/26/25 19:46 82 96 Mechanical Ventilation 35 01/26/25 18:00 97.9 F 80 14 141/96 H 97 01/26/25 18:00 81 01/26/25 17:40 82 97 Mechanical Ventilation Intake/Output Intake/Output: Intake & Output 01/24/25 01/25/25 01/26/25 01/27/25 23:59 23:59 23:59 23:59 Intake Total 2010.5 1311.5 1494 1016 Output Total 1475 1050 900 400 Balance 535.5 261.5 594 616 Meds/Results Medications: Active Medications Generic Name Dose Route Start Last Admin Trade Name Freq PRN Reason Stop Dose Admin Acetaminophen 650 mg 01/23/25 14:11 01/26/25 20:36 Acetaminophen 325 Mg Tablet FEED TUBE 650 mg Q4H PRN Administration Fever 1-3 Albuterol/Ipratropium 3 ml 01/26/25 14:00 01/27/25 14:44 Ipratropium 0.5 Mg/Albuterol Sulfate 2.5 Mg Ampul.Neb 3 Ml INHALATION 3 ml Q6HRT MEENA Administration Alteplase, Recombinant 2 mg 01/27/25 14:40 Alteplase 2 Mg Vial (Cathflo) IV PUSH ONCE PRN Line Occlusion Amlodipine Besylate 5 mg 01/25/25 09:00 01/27/25 08:24 Amlodipine Besylate 5 Mg Tablet FEED TUBE 5 mg DAILY MEENA Administration Budesonide 0.5 mg 01/26/25 10:00 01/27/25 08:28 Budesonide Respule Neb 0.5 Mg/2 Ml Amp INHALATION 0.5 mg Q12HRT MEENA Administration Dextrose 12.5 gm 01/20/25 08:23 Dextrose 50% 25 Gm/50 Ml Syringe IV PUSH PRN PRN Hypoglycemia Protocol Epoetin Emil-epbx 10,000 units 01/23/25 09:00 01/26/25 08:20 Epoetin Emil-Epbx 10,000 Units/Ml Vial SUB-Q 10,000 units TUTA@09 MEENA Administration Folic Acid 1 mg 01/20/25 09:00 01/27/25 08:24 Folic Acid 1 Mg/0.2 Ml Inj IV PUSH 1 mg QAM MEENA Administration Glucagon 1 mg 01/20/25 08:23 Glucagon For Inj 1 Mg Vial IM PRN PRN Hypoglycemia Protocol Glucose 15 gm 01/20/25 08:23 Glucose Oral Gel 15 Gm Of Glucse In 37.5 Gm Tube PO PRN PRN Hypoglycemia Protocol Hydralazine HCl 20 mg 01/24/25 03:34 01/26/25 05:50 Hydralazine Hcl 20 Mg/Ml Vial IV PUSH 20 mg Q4H PRN Administration Hypertension Hydralazine HCl 25 mg 01/27/25 07:40 01/27/25 14:06 Hydralazine Hcl 25 Mg Tablet PO 25 mg Q8HR MEENA Administration Dextrose 1,000 mls @ 100 mls/hr 01/20/25 08:23 Dextrose 5% 1,000 Ml IVPB PRN PRN Hypoglycemia Protocol Insulin Aspart 3 - 6 units 01/20/25 12:00 01/27/25 12:30 Insulin Aspart (*Bkc) 100 Units/Ml SUB-Q Not Given Q6HR MEENA Protocol Labetalol HCl 20 mg 01/23/25 09:31 01/27/25 14:06 Labetalol Hcl Inj 100 Mg/20 Ml Vial IV PUSH 20 mg Q4H PRN Administration SBP > 160 and HR> 60 -1st choice Multi-Ingred Cream/Lotion/Oil/Oint 1 applic 01/22/25 21:00 01/27/25 08:24 Mineral Oil/White Petrolatum Ointment EACH EYE Not Given Q12HR MEENA Pantoprazole Sodium 40 mg 01/21/25 09:00 01/27/25 08:24 Pantoprazole Sodium Iv 40 Mg Vial IV PUSH 40 mg Q12HR MEENA Administration Sodium Chloride 10 ml 01/20/25 06:00 01/27/25 14:36 Central Line Flush IV PUSH 10 ml Q8HR MEENA Administration Sodium Chloride 20 ml 01/20/25 01:15 01/24/25 04:56 Central Line Flush IV PUSH 20 ml PRN PRN Administration after blood draws Thiamine HCl 100 mg 01/20/25 09:00 01/27/25 08:24 Thiamine Hcl 200 Mg/2 Ml Vial IV PUSH 100 mg QAM MEENA Administration Radiology Results: ITS Impressions Abdomen X-Ray 01/20/25 05:42 Impression: NG tube in satisfactory position. Small left pleural effusion. Chest/Abdomen/Pelvis CT 01/20/25 05:48 Impression: Moderate to large left pleural effusion with extensive left lower lobe atelectasis. Small right pleural effusion. 9 mm spiculated nodule in the right lower lobe, as detailed above, indeterminate. CT scan in 3 months advised. Consider PET/CT or attempted tissue sampling as indicated. Moderate emphysema. No definite evidence for GI bleed, but evaluation is limited without IV contrast and with oral contrast on board. Consider follow-up CT angiogram of the bowel to further evaluate for GI bleed, as indicated. Moderate abdominopelvic ascites. T12 compression fracture, somewhat age indeterminate, but new since 06/20/2024. Fractures of the right anterior acetabulum at the junction of the right superior pubic ramus and of the right inferior pubic ramus, acute to subacute in nature. Head CT 01/20/25 06:13 Impression: No intracranial hemorrhage, mass, or acute infarct. Atrophy and chronic white matter changes, as above. Wrist X-Ray 01/20/25 06:13 Impression: Probable chronic fracture deformities of the distal radius and ulnar styloid process, as detailed above. No definite acute fracture. Renal Ultrasound 01/21/25 08:42 IMPRESSION: 1. Medical renal disease. 2. Mild bilateral hydronephrosis. No nephrolithiasis. Hip/Pelvis X-Ray 01/24/25 11:12 Impression: 1: Healing right acetabular and inferior pubic rami fractures with callus formation. Chest X-Ray 01/27/25 05:49 Impression: 1: Bilateral infiltrates may represent a combination of edema, pneumonia and/or atelectasis. Labs Labs: Laboratory Tests 01/27/25 05:17 01/27/25 05:17 Calcium 8.1 L Phosphorus 1.4 L Magnesium 2.1 Total Bilirubin 1.2 AST 34 ALT 29 Alkaline Phosphatase 73 Total Protein 5.3 L Albumin 3.1 L Microbiology 01/20/25 02:49 Blood Blood Culture - Final Staphylococcus hominis
[2025-01-27] MEDS: ALTEPLASE 2 MG VIAL (CATHFLO) IV PUSH (16:10)
[2025-01-27] MEDS: ACETAMINOPHEN 325 MG TABLET 650 MG FEED TUBE (21:51)
[2025-01-28] VITALS (30 sets, daily range): BP systolic 139–162; BP diastolic 89–105; PULSE 71–86; RESP 11–23; TEMP 35.9–36.9; O2SAT 96–100
[2025-01-28] MEDS: IPRATROPIUM 0.5 MG/ALBUTEROL SULFATE 2.5 MG AMPUL.NEB 3 ML INHALATION ×4 (02:08→21:06)
[2025-01-28 05:18] LABS: Alveolar/Arterial O2 Gradient 77.5 mmHg; Carboxyhemoglobin 0.9 % THb (0-2.0); Fractional Inspired Oxygen 35 %; HCO3 ABG 27.4 mEq/l (22.0-26.0); Methemoglobin ABG 0.2 %THb (0-1.5); Oxygen Content ABG 16.3 %vol (16.0-22.0); Oxygen Saturation ABG 98.7 % (95.0-100.0); PCO2 ABG 38.4 mmHg (35.0-45.0); PO2 ABG 127.4 mmHg (80.0-100.0); PO2 FiO2 Ratio Arterial Blood 3.64 %; Reduced Hemoglobin 1.3 %THb (0-5.0)
[2025-01-28] MEDS: CENTRAL LINE FLUSH 10 ML IV PUSH ×3 (05:37→21:09)
[2025-01-28 05:46] LABS: Modified Allen's Test Pass; Site Drawn LEFT RADIAL
[2025-01-28 05:48] LABS: Arterial Blood Gas Minute Volume 5.2 LPM
[2025-01-28 05:52] LABS: Hematocrit 34.5 % (37.0-47.0); Hemoglobin 10.5 g/dL (12.0-15.0); Mean Corpuscular HGB Conc 30.4 g/dl (32-36); Mean Corpuscular Hemoglobin 29.6 pg (26-34); Mean Corpuscular Volume 97.2 fl (80-100); Platelet Count Result 33 k/mm3 (150-375); Red Blood Count 3.55 M/mm3 (4.2-5.4); White Blood Count 5.5 K/mm3 (4.5-10.0)
[2025-01-28 06:18] LABS: Alanine Aminotransferase 28 U/L (6-35); Albumin Level 3.1 g/dL (3.5-5.1); Alkaline Phosphatase 75 U/L (38-126); Anion Gap 8 mmol/L (4-12); Aspartate Amino Transferase 31 U/L (14-36); Bilirubin,Total 1.0 mg/dL (0.2-1.3); Blood Urea Nitrogen 71 mg/dL (7-17); Calcium 8.0 mg/dL (8.4-10.2); Carbon Dioxide 30 mmol/L (22-30); Chloride 107 mmol/L (98-107); Estimated CRCL calculation 17 ml/min; Estimated Glomerular Filt Rate 25; Glucose 127 mg/dL (65-110); Magnesium 2.0 mg/dL (1.6-2.3); Potassium 3.2 mmol/L (3.4-5.0); Sodium 145 mmol/L (137-145); Total Protein 5.2 g/dL (6.3-8.2)
[2025-01-28] MEDS: BUDESONIDE RESPULE NEB 0.5 MG/2 ML AMP INHALATION ×2 (07:33→21:06)
[2025-01-28] MEDS: PANTOPRAZOLE SODIUM IV 40 MG VIAL IV PUSH ×2 (08:13→21:08)
[2025-01-28] MEDS: THIAMINE HCL 200 MG/2 ML VIAL 100 MG IV PUSH (08:13)
[2025-01-28] MEDS: EPOETIN ALFA-EPBX 10,000 UNITS/ML VIAL 10000 UNITS SUB-Q (08:13)
[2025-01-28] MEDS: FOLIC ACID 1 MG/0.2 ML INJ IV PUSH (08:14)
[2025-01-28] MEDS: POTASSIUM CHLORIDE 20 MEQ PACKET (FOR LIQUID) 40 MEQ PO (08:32)
[2025-01-28] MEDS: POTASSIUM CHLORIDE 20 MEQ PACKET (FOR LIQUID) PO (08:33)
[2025-01-28 09:17] LABS: Triglycerides 101 mg/dL (<150)
--- NOTE | 2025-01-28 11:03 | PCFNICU ---
ICU Rounding Note: Pt current nutrition is Nepro at 40 ml/hr. Last recorded weight is 39.1 kg, stable Bowel Motility: Last reported BM 01/27 Labs Reviewed:Glu 127, BUN 71, Cr 2.0, Hct 34.5, Hgb 10.5 Meds Noted:Thiamine, Folic Acid, Protonix Skin: WNL Additional Notes: Patient remains on a mechanical vent. Tube feedings are being tolerated of Nepro at 40 ml/hr with flush 75 ml q 4 hours. Total Nutrition: 1584 kcal/71 gm protein/640 ml water. Discussions in rounds regarding PEG/Trach vs DNR. [employer] plans to speak with family regarding the plan of care. Following daily in ICU rounds. Will monitor weight, labs, skin, diet orders, meds every Saturday and Saturday.
--- NOTE | 2025-01-28 12:01 | P.PNNP_ITS ---
Progress Note: A&P Assessment and Plan (1) Acute kidney injury: Code(s): N17.9 - Acute kidney failure, unspecified Status: Acute Assessment and Plan: * relatively stable if not better * as noted on admission (creatinine of 3.43mg/dl) * likely due to multiple issues: * prerenal factors (poor nutrition) * anemia/GI bleed * infection/sepsis (+ blood cultures) * respiratory failure * hypoxia * liver disease/cirrhosis * progression of underlying CKD * other(?) * evaluation to date noted: * renal ultrasound with CKD and mild bilateral hydronephrosis - mcqueen cathter placed * urine electrolytes prerenal - suspect due to a combination of poor oral intake AND liver disease/physiology (decreased effective circulating volume) * urine eosinophils negative * CPK low * ~ 2 grams of proteinuria * maintain hemodynamics and H/H as tolerated * noted reasonable urine output * responsive to IV diuretic therapy * follow trend of repeat labs and UOP (2) Stage 4 chronic kidney disease: Code(s): N18.4 - Chronic kidney disease, stage 4 (severe) Status: Chronic Assessment and Plan: * not entirely clear what baseline creatinine really is.... * was noted to be ~ 1.4 - 1.6mg/dl in June 2024 * however, since December 2024, has been running ~ 2.4 - 2.6mg/dl (from record review from [facility]) * most recent labs done on 01/15/25 -- creatinine up to 2.79mg/dl (ER visit at [facility] prior to leaving [place]) * possible baseline creatinine around 2ish range?? (3) Acute hypoxic respiratory failure: Code(s): J96.01 - Acute respiratory failure with hypoxia Status: Acute Assessment and Plan: * multifactorial: * inability to protect airway * aspiration pneumonia * pleural effusions * suspected upper GI bleed * complicated by underlying COPD * imaging noted * IV diuretics PRN for fluid overload (follow CXR results) * failed trial of extubation (on 01/24) * continue ventilator support - weaning as tolerated * re-attempt extubation today? (4) Acute upper GI bleeding: Code(s): K92.2 - Gastrointestinal hemorrhage, unspecified Status: Acute Assessment and Plan: * stable/resolved * suspected based on admission events/presentation * GI following * s/p EGD (on 01/20): * noted erosive esophagitis but no varices or bleeding lesions noted * PRBC transfusion per protocol * corrected coagulopathy * IV PPI * follow trend on H/H (5) Sepsis: Code(s): A41.9 - Sepsis, unspecified organism Status: Acute Assessment and Plan: * resolved * possibly from pneumonia (aspiration) versus UTI * follow culture data: * blood cultures (from 01/20): Staphylococcus hominis (suspect contamination) * urine culture - no growth to date * completed course off antibiotics * stable hemodynamics noted (6) Anemia: Code(s): D64.9 - Anemia, unspecified Status: Acute Assessment and Plan: * due to several issues: * due to underlying CKD * iron deficiency * #3 - GI following * liver disease * coagulopathy * other * PRBC transfusion as needed * Epogen while hospitalized * follow trend of H/H (7) Coagulopathy: Code(s): D68.9 - Coagulation defect, unspecified Status: Acute Assessment and Plan: * probably secondary to liver cirrhosis * complicated by thrombocytopenia also related to liver disease * s/p cryoprecipitate, platelets, and FFP transfusion (8) Alcoholic cirrhosis of liver with ascites: Code(s): K70.31 - Alcoholic cirrhosis of liver with ascites Status: Acute Assessment and Plan: * as evidence by admission CT/imaging findings * presumably partly related to alcohol intake * GI following (9) Transaminitis: Code(s): R74.01 - Elevation of levels of liver transaminase levels Status: Acute Assessment and Plan: * noted by admission labs * suspect secondary to/consistent with with alcoholic liver disease. * Hepatitis C antibody screen is positive -- RNA quantitative is [id number] * will need follow-up as an outpatient basis for hepatitis C infection (10) Acetabular fracture: Qualifiers: Encounter type: initial encounter Fracture alignment: nondisplaced F racture type: closed Laterality: right Sublocation of acetabulum: unspecified portion of acetabulum Qualified Code(s): S32.401A - Unspecified fracture of right acetabulum, initial encounter for closed fracture Code(s): S32.409A - Unspecified fracture of unspecified acetabulum, initial encounter for closed fracture Status: Acute Assessment and Plan: * as noted by admission CT imaging: * fractures of the right anterior acetabulum at the junction of the right superior pubic ramus and of the right inferior pubic ramus, acute to subacute in nature * Orthopedic Surgery recommendations * repeat imaging X-rays noted: healing right acetabular and inferior pubic rami fractures with callus formation (11) Distal radial fracture: Qualifiers: Encounter type: subsequent encounter Fracture type: closed Fracture morphology: unspecified fracture morphology Laterality: left Fracture healing: with nonunion Qualified Code(s): S52.502K - Unspecified fracture of the lower end of left radius, subsequent encounter for closed fracture with nonunion Code(s): S52.509A - Unspecified fracture of the lower end of unspecified radius, initial encounter for closed fracture Status: Acute Assessment and Plan: * apparently chronic in nature by X-rays * Orthopedic Surgery recommendations reviewed (12) Alcohol abuse: Code(s): F10.10 - Alcohol abuse, uncomplicated Status: Acute Assessment and Plan: * known history * on thiamine and folate Will continue to follow. L Subjective Date/time seen: 01/28/25 12:01 Interval history: Follow-up for acute kidney injury/acute renal failure on chronic kidney disease. No apparent distress noted at the time of my visit; remains of sedation but remains intubated and on mechanical ventilation; she remains awake & alert along with following simple commands and nodding to questions asked; hemodynamically stable and renal function/creatinine continues to be stable with good urine output noted; noted plans for possible extubation today Exam 2 Narrative: General: ill-appearing/cachectic female intubated & on mechanical ventilation (off sedation) Heart: normal S1 and S2; no rub Lungs: coarse breath sounds; decreased throughout Abdomen: soft, nontender, nondistended, positive bowel sounds Extremities: no cyanosis or clubbing; trace edema Skin: warm and intact Objective Data Vital Signs Vital Signs: Vital Signs Temp Pulse Resp BP Pulse Ox O2 Del Method FiO2 01/28/25 12:00 99 Mechanical Ventilation 01/28/25 12:00 83 01/28/25 12:00 98.0 F 82 15 148/89 H 96 01/28/25 10:08 98 Mechanical Ventilation 30 01/28/25 10:00 78 01/28/25 10:00 97.0 F L 75 23 H 139/95 H 100 01/28/25 09:32 85 01/28/25 08:00 97.1 F L 83 22 H 151/95 H 96 01/28/25 08:00 98 Mechanical Ventilation 01/28/25 08:00 83 01/28/25 08:00 35 01/28/25 07:41 80 97 Mechanical Ventilation 35 01/28/25 07:33 82 12 01/28/25 06:00 83 01/28/25 06:00 97.4 F L 83 19 146/91 H 100 01/28/25 05:10 Mechanical Ventilation 35 01/28/25 04:00 77 01/28/25 04:00 97 Mechanical Ventilation 01/28/25 04:00 35 01/28/25 04:00 97.9 F 77 13 159/96 H 97 01/28/25 03:20 86 01/28/25 02:30 86 12 01/28/25 02:08 84 13 01/28/25 02:08 83 97 Mechanical Ventilation 35 01/28/25 02:00 98.5 F 83 13 160/99 H 98 01/28/25 02:00 83 01/28/25 00:00 78 01/28/25 00:00 99 Mechanical Ventilation 01/28/25 00:00 98.4 F 77 11 L 144/93 H 99 01/28/25 00:00 35 01/27/25 23:52 87 01/27/25 23:11 90 100 Mechanical Ventilation 35 01/27/25 22:00 89 01/27/25 22:00 89 01/27/25 22:00 98.0 F 89 16 172/104 H 100 01/27/25 20:45 86 11 L 01/27/25 20:21 80 11 L 01/27/25 20:21 80 11 L 100 Mechanical Ventilation 35 01/27/25 20:21 80 100 Mechanical Ventilation 35 01/27/25 20:00 98 Mechanical Ventilation 01/27/25 20:00 80 01/27/25 20:00 35 01/27/25 20:00 97.2 F L 78 14 160/95 H 99 01/27/25 18:00 96.8 F L 75 13 150/88 H 98 01/27/25 18:00 76 01/27/25 17:36 75 100 Mechanical Ventilation 35 Intake/Output Intake/Output: Intake & Output 01/25/25 01/26/25 01/27/25 01/28/25 23:59 23:59 23:59 23:59 Intake Total 1311.5 1494 1016 1030 Output Total 0065 717 5430 1150 Balance 261.5 594 -284 -120 Meds/Results Medications: Active Medications Generic Name Dose Route Start Last Admin Trade Name Eli PRN Reason Stop Dose Admin Acetaminophen 650 mg 01/23/25 14:11 01/27/25 21:51 Acetaminophen 325 Mg Tablet FEED TUBE 650 mg Q4H PRN Administration Fever 1-3 Albuterol/Ipratropium 3 ml 01/26/25 14:00 01/28/25 14:05 Ipratropium 0.5 Mg/Albuterol Sulfate 2.5 Mg Ampul.Neb 3 Ml INHALATION 3 ml Q6HRT MEENA Administration Alteplase, Recombinant 2 mg 01/27/25 14:40 01/27/25 16:10 Alteplase 2 Mg Vial (Cathflo) IV PUSH 2 mg ONCE PRN Administration Line Occlusion Amlodipine Besylate 5 mg 01/25/25 09:00 01/28/25 08:13 Amlodipine Besylate 5 Mg Tablet FEED TUBE 5 mg DAILY MEENA Administration Budesonide 0.5 mg 01/26/25 10:00 01/28/25 07:33 Budesonide Respule Neb 0.5 Mg/2 Ml Amp INHALATION 0.5 mg Q12HRT MEENA Administration Dextrose 12.5 gm 01/20/25 08:23 Dextrose 50% 25 Gm/50 Ml Syringe IV PUSH PRN PRN Hypoglycemia Protocol Epoetin Emil-epbx 10,000 units 01/23/25 09:00 01/28/25 08:13 Epoetin Emil-Epbx 10,000 Units/Ml Vial SUB-Q 10,000 units TUTA@09 MEENA Administration Folic Acid 1 mg 01/20/25 09:00 01/28/25 08:14 Folic Acid 1 Mg/0.2 Ml Inj IV PUSH 1 mg QAM MEENA Administration Glucagon 1 mg 01/20/25 08:23 Glucagon For Inj 1 Mg Vial IM PRN PRN Hypoglycemia Protocol Glucose 15 gm 01/20/25 08:23 Glucose Oral Gel 15 Gm Of Glucse In 37.5 Gm Tube PO PRN PRN Hypoglycemia Protocol Hydralazine HCl 20 mg 01/24/25 03:34 01/28/25 05:37 Hydralazine Hcl 20 Mg/Ml Vial IV PUSH 20 mg Q4H PRN Administration Hypertension Hydralazine HCl 25 mg 01/27/25 07:40 01/28/25 15:41 Hydralazine Hcl 25 Mg Tablet PO Not Given Q8HR MEENA Dextrose 1,000 mls @ 100 mls/hr 01/20/25 08:23 Dextrose 5% 1,000 Ml IVPB PRN PRN Hypoglycemia Protocol Insulin Aspart 3 - 6 units 01/20/25 12:00 01/28/25 12:00 Insulin Aspart (*Bkc) 100 Units/Ml SUB-Q Not Given Q6HR [facility] Protocol Labetalol HCl 20 mg 01/23/25 09:31 01/28/25 09:32 Labetalol Hcl Inj 100 Mg/20 Ml Vial IV PUSH 20 mg Q4H PRN Administration SBP > 160 and HR> 60 -1st choice Multi-Ingred Cream/Lotion/Oil/Oint 1 applic 01/22/25 21:00 01/28/25 08:14 Mineral Oil/White Petrolatum Ointment EACH EYE Not Given Q12HR MEENA Pantoprazole Sodium 40 mg 01/21/25 09:00 01/28/25 08:13 Pantoprazole Sodium Iv 40 Mg Vial IV PUSH 40 mg Q12HR MEENA Administration Sodium Chloride 10 ml 01/20/25 06:00 01/28/25 13:35 Central Line Flush IV PUSH 10 ml Q8HR MEENA Administration Sodium Chloride 20 ml 01/20/25 01:15 01/24/25 04:56 Central Line Flush IV PUSH 20 ml PRN PRN Administration after blood draws Thiamine HCl 100 mg 01/20/25 09:00 01/28/25 08:13 Thiamine Hcl 200 Mg/2 Ml Vial IV PUSH 100 mg QAM MEENA Administration Radiology Results: ITS Impressions Abdomen X-Ray 01/20/25 05:42 Impression: NG tube in satisfactory position. Small left pleural effusion. Chest/Abdomen/Pelvis CT 01/20/25 05:48 Impression: Moderate to large left pleural effusion with extensive left lower lobe atelectasis. Small right pleural effusion. 9 mm spiculated nodule in the right lower lobe, as detailed above, indeterminate. CT scan in 3 months advised. Consider PET/CT or attempted tissue sampling as indicated. Moderate emphysema. No definite evidence for GI bleed, but evaluation is limited without IV contrast and with oral contrast on board. Consider follow-up CT angiogram of the bowel to further evaluate for GI bleed, as indicated. Moderate abdominopelvic ascites. T12 compression fracture, somewhat age indeterminate, but new since 06/20/2024. Fractures of the right anterior acetabulum at the junction of the right superior pubic ramus and of the right inferior pubic ramus, acute to subacute in nature. Head CT 01/20/25 06:13 Impression: No intracranial hemorrhage, mass, or acute infarct. Atrophy and chronic white matter changes, as above. Wrist X-Ray 01/20/25 06:13 Impression: Probable chronic fracture deformities of the distal radius and ulnar styloid process, as detailed above. No definite acute fracture. Renal Ultrasound 01/21/25 08:42 IMPRESSION: 1. Medical renal disease. 2. Mild bilateral hydronephrosis. No nephrolithiasis. Hip/Pelvis X-Ray 01/24/25 11:12 Impression: 1: Healing right acetabular and inferior pubic rami fractures with callus formation. Chest X-Ray 01/28/25 05:45 Impression: 1: Retrocardiac airspace consolidation which may represent atelectasis or pneumonia. No significant change. Labs Labs: Laboratory Tests 01/28/25 05:43 01/28/25 05:43 Calcium 8.0 L Phosphorus 3.2 Magnesium 2.0 Total Bilirubin 1.0 AST 31 ALT 28 Alkaline Phosphatase 75 Total Protein 5.2 L Albumin 3.1 L Triglycerides 101
[2025-01-28 12:27] LABS: Alveolar/Arterial O2 Gradient 78.7 mmHg; Fractional Inspired Oxygen 30 %; HCO3 ABG 27.1 mEq/l (22.0-26.0); Oxygen Content ABG 16.3 %vol (16.0-22.0); Oxygen Saturation ABG 97.6 % (95.0-100.0); PCO2 ABG 36.2 mmHg (35.0-45.0); PO2 ABG 92.7 mmHg (80.0-100.0); PO2 FiO2 Ratio Arterial Blood 3.09 %
[2025-01-28 12:30] LABS: Modified Allen's Test Pass; Site Drawn RIGHT RADIAL
--- NOTE | 2025-01-28 12:53 | P.PNINT_ITS ---
Progress Note: A&P Assessment and Plan (1) Acute hypoxic respiratory failure: Code(s): J96.01 - Acute respiratory failure with hypoxia Status: Acute Assessment and Plan: Acute respiratory failure secondary to aspiration pneumonia pleural effusion upper GI bleed with underlying COPD 01/20: Intubated in the ER on admission 01/24 patient was successfully extubated, Post extubation patient was tachypneic. She was placed on BiPAP but her tachypnea and work of breathing worsened and she complained of being short of breath. Was reintubate about an hour post extubation on the same day 01/24: Reintubated 01/26: Remains on CMV mode of ventilation, peep of 5, 35% FiO2. place patient back on PSV 01/05, patient does go in and out of apnea ventilation. Overnight she was placed in ASV mode will tolerated well -chest x-ray and ABGs reviewed this morning -significantly cachectic and weak, may require prolonged SBT before extubation, may extubated directly to BiPAP given her severe COPD, will discuss with patient and her POA before extubating -continue bronchodilators and budesonide given her underlying COPD 01/27: Placed her on SBT 01/05, patient is going in and out of apnea ventilation, will diurese with Lasix 20 mg IV x1 -01/28: Placed her on SBT 01/05, pt did well, RSBI in the 50-70s. very awake, good cough. Pt successfully extubated to BiPAP/AVAPS. -BiPAP/AVAPS while pt is sleeping (2) Acute upper GI bleeding: Code(s): K92.2 - Gastrointestinal hemorrhage, unspecified Status: Acute Assessment and Plan: Acute upper GI bleed 01/20 EGD showed reflux/erosive/ulcerative esophagitis and hiatal hernia, no variceal bleed Status post transfusion of multiple units of PRBC Coagulopathy cryo and FFP Hemoglobin appears to be now stable. I will continue monitoring hemoglobin and transfuse additional PRBC if needed continue IV PPI. Octreotide was discontinued GI following (3) Transaminitis: Code(s): R74.01 - Elevation of levels of liver transaminase levels Status: Acute Assessment and Plan: AST and ALT mildly elevated likely consistent with alcoholic liver disease. Hepatitis C antibody screen is positive. RNA quantitative is [id number] -LFTs have normalized, continue to monitor (4) Alcoholic cirrhosis of liver with ascites: Code(s): K70.31 - Alcoholic cirrhosis of liver with ascites Status: Acute Assessment and Plan: Patient has cirrhosis from alcohol liver disease with CT scan showing ascites (5) Acute kidney injury superimposed on stage 4 chronic kidney disease: Code(s): N17.9 - Acute kidney failure, unspecified; N18.4 - Chronic kidney disease, stage 4 (severe) Status: Acute Assessment and Plan: Baseline creatinine in mid 2 Patient was given IV fluids but now off due to concern of volume overload and patient has also received significant amount of blood products. Creatinine improved to 2.40 Monitor urine output electrolytes and creatinine CT scans not show any obstruction or stone Renal ultrasound showed mild bilateral hydronephrosis without any stones Appreciate nephrology following the patient. Patient responded well to Lasix for volume overload Chest x-ray shows bilateral infiltrates, possible edema, pneumonia or atelectasis, will give additional dose of Lasix today phosphorus has normalized (6) Coagulopathy: Code(s): D68.9 - Coagulation defect, unspecified Status: Acute Assessment and Plan: Coagulopathy secondary to cirrhosis and sepsis Patient received cryo and platelets, and FFP (7) Sepsis: Code(s): A41.9 - Sepsis, unspecified organism Status: Acute Assessment and Plan: Sepsis likely secondary to pneumonia which could be aspiration Blood cultures grew Staph hominis which is likely contaminant. Will discontinue vancomycin On IV Zosyn (end date 01/26) UA and micro also suggestive UTI. Urine cultures Negative (8) Anemia: Code(s): D64.9 - Anemia, unspecified Status: Acute Assessment and Plan: Likely multifactorial anemia from iron deficiency and anemia of chronic kidney disease along with acute blood loss Patient received a dose of iron And she has received for units of PRBC. Hemoglobin appears to have stabilized Monitor and transfuse additional if needed Management of GI bleeding as above Epogen per Nephrology (9) Thrombocytopenia: Code(s): D69.6 - Thrombocytopenia, unspecified Status: Acute Assessment and Plan: Thrombocytopenia likely combination of sepsis and cirrhosis. 01/20 Platelet transfusion (10) Alcohol abuse: Code(s): F10.10 - Alcohol abuse, uncomplicated Status: Acute Assessment and Plan: History of alcohol abuse. Off all sedation Continue thiamine and folic acid (11) Severe protein-calorie malnutrition: Code(s): E43 - Unspecified severe protein-calorie malnutrition Status: Acute Assessment and Plan: Appears Malnourished and cachectic. -Now on tube feeds. (12) Acetabular fracture: Qualifiers: Encounter type: initial encounter Fracture alignment: nondisplaced Fracture type: closed Laterality: right Sublocation of acetabulum: unspecified portion of acetabulum Qualified Code(s): S32.401A - Unspecified fracture of right acetabulum, initial encounter for closed fracture Code(s): S32.409A - Unspecified fracture of unspecified acetabulum, initial encounter for closed fracture Status: Acute Assessment and Plan: Orthopedics evaluate the patient . No further recommendations at this time (13) Distal radial fracture: Qualifiers: Encounter type: subsequent encounter Fracture type: closed Fracture morphology: unspecified fracture morphology Laterality: left Fracture healing: with nonunion Qualified Code(s): S52.502K - Unspecified fracture of the lower end of left radius, subsequent encounter for closed fracture with nonunion Code(s): S52.509A - Unspecified fracture of the lower end of unspecified radius, initial encounter for closed fracture Status: Acute Assessment and Plan: seen by orthopedics. Splint removed as per recommendations. Plan DVT prophylaxis -SCDs Stress ulcer prophylaxis -Protonix IV Nutrition - hold tube feeds for extubation Code Status - Full Code Total Critical Care Time - 32 minutes 01/28: D/w pt in front of the bedside RN Shelby and explained to her that I will be extubating her and what if she fails, would she want to be intubated for he 3rd time with a caveat that she would then get a tracheostomy and a PEG tube and then will be transferred to a LTAC facility. She agreed to being reintubated if needed. Due to a high probability of clinically significant, life threatening deterioration, the patient required my highest level of preparedness to intervene emergently and I personally spent this critical care time directly and personally managing the patient. This critical care time included obtaining a history; examining the patient; pulse oximetry; ordering and review of studies; arranging urgent treatment with development of a management plan; evaluation of patient's response to treatment; frequent reassessment; and discussions with other providers. It was exclusive of separately billable procedures and treating other patients and teaching time. Please see Assessment and Plan section and the rest of the note for further information on patient assessment and treatment This dictation may have been done utilizing a voice recognition system. Attempts have been made to correct errors. However, there may be uncorrected grammatical, spelling, and recognitions errors present. Subjective Date/time seen: 01/28/25 12:53 Interval history: Reason for consult, GI bleed, acute renal failure, hypotension, shock, pneumonia, respiratory failure, required multiple blood product transfusion, transaminitis coagulopathy, thrombocytopenia, alcohol abuse, severe protein calorie malnutrition, acetabular fracture, distal radial fracture 01/20: EGD showed reflux/erosive/ulcerative esophagitis, hiatal hernia. No varices 01/20: Intubation in the ER 01/24: Extubated 01/24: Reintubated 01/28/2025: Patient seen and examined the ICU, remains intubated, on ASV mode, 30% FiO2. Patient tolerated PSV mode all day yesterday was placed back into spontaneous mode. Sedation has been off > 72 hrs. Patient is awake, nods to questions and follows simple commands in all extremities. Nods to breathing being okay. Good urine output, afebrile and hemodynamically stable. Review of Systems Review of Systems: ROS unobtainable: Yes unobtainable due to endotracheal tube, unobtainable due to medical condition and unobtainable due to mental status Exam Narrative: General: Pt is cachectic, appears older than her age, intubated, off all sedation, in no acute distress HEENT: Pupils are equal and reactive, sclera is clear, ETT in place Lungs/Chest: Good air entry in all regions, decreased at bases, no wheezing, adequate air entry Cardiac: RRR. Normal S1 S2. No murmurs Abdomen: Decreased bowel sounds. Soft. NT. ND. Extremities: No clubbing, cyanosis or edema. Pedal pulses are intact : Mclean in place Neurologic: Off all sedation, patient remains intubated, is awake, alert, nods to questions, follows simple commands in all extremities. Strength is weak in all extremities Skin: NO skin lesions Objective Data Vital Signs Vital Signs: Vital Signs - 24 hr 01/27/25 14:00 01/27/25 14:00 01/27/25 14:45 Temperature 97.4 F L Pulse Rate 77 72 71 Respiratory Rate 13 13 Blood Pressure 161/96 H Pulse Oximetry 99 Oxygen Delivery Fraction of Inspired Oxygen 01/27/25 14:46 01/27/25 14:50 01/27/25 15:09 Temperature Pulse Rate 72 72 Respiratory Rate 13 Blood Pressure 136/85 Pulse Oximetry 97 Oxygen Delivery Mechanical Ventilation Fraction of Inspired Oxygen 35 01/27/25 16:00 01/27/25 16:00 01/27/25 16:08 Temperature 96.9 F L Pulse Rate 78 78 75 Respiratory Rate 15 14 Blood Pressure 142/87 H Pulse Oximetry 97 98 Oxygen Delivery Mechanical Ventilation Fraction of Inspired Oxygen 01/27/25 17:36 01/27/25 18:00 01/27/25 18:00 Temperature 96.8 F L Pulse Rate 75 76 75 Respiratory Rate 13 Blood Pressure 150/88 H Pulse Oximetry 100 98 Oxygen Delivery Mechanical Ventilation Fraction of Inspired Oxygen 35 01/27/25 20:00 01/27/25 20:00 01/27/25 20:00 Temperature 97.2 F L Pulse Rate 78 80 Respiratory Rate 14 Blood Pressure 160/95 H Pulse Oximetry 99 Oxygen Delivery Fraction of Inspired Oxygen 35 01/27/25 20:00 01/27/25 20:21 01/27/25 20:21 Temperature Pulse Rate 80 80 Respiratory Rate 11 L Blood Pressure Pulse Oximetry 98 100 100 Oxygen Delivery Mechanical Ventilation Mechanical Ventilation Mechanical Ventilation Fraction of Inspired Oxygen 35 35 01/27/25 20:21 01/27/25 20:45 01/27/25 22:00 Temperature 98.0 F Pulse Rate 80 86 89 Respiratory Rate 11 L 11 L 16 Blood Pressure 172/104 H Pulse Oximetry 100 Oxygen Delivery Fraction of Inspired Oxygen 01/27/25 22:00 01/27/25 22:00 01/27/25 23:11 Temperature Pulse Rate 89 89 90 Respiratory Rate Blood Pressure Pulse Oximetry 100 Oxygen Delivery Mechanical Ventilation Fraction of Inspired Oxygen 35 01/27/25 23:52 01/28/25 00:00 01/28/25 00:00 Temperature 98.4 F Pulse Rate 87 77 Respiratory Rate 11 L Blood Pressure 144/93 H Pulse Oximetry 99 Oxygen Delivery Fraction of Inspired Oxygen 35 01/28/25 00:00 01/28/25 00:00 01/28/25 02:00 Temperature Pulse Rate 78 83 Respiratory Rate Blood Pressure Pulse Oximetry 99 Oxygen Delivery Mechanical Ventilation Fraction of Inspired Oxygen 01/28/25 02:00 01/28/25 02:08 01/28/25 02:08 Temperature 98.5 F Pulse Rate 83 83 84 Respiratory Rate 13 13 Blood Pressure 160/99 H Pulse Oximetry 98 97 Oxygen Delivery Mechanical Ventilation Fraction of Inspired Oxygen 35 01/28/25 02:30 01/28/25 03:20 01/28/25 04:00 Temperature 97.9 F Pulse Rate 86 86 77 Respiratory Rate 12 13 Blood Pressure 159/96 H Pulse Oximetry 97 Oxygen Delivery Fraction of Inspired Oxygen 01/28/25 04:00 01/28/25 04:00 01/28/25 04:00 Temperature Pulse Rate 77 Respiratory Rate Blood Pressure Pulse Oximetry 97 Oxygen Delivery Mechanical Ventilation Fraction of Inspired Oxygen 35 01/28/25 05:10 01/28/25 06:00 01/28/25 06:00 Temperature 97.4 F L Pulse Rate 83 83 Respiratory Rate 19 Blood Pressure 146/91 H Pulse Oximetry 100 Oxygen Delivery Mechanical Ventilation Fraction of Inspired Oxygen 35 01/28/25 07:33 01/28/25 07:41 01/28/25 08:00 Temperature Pulse Rate 82 80 Respiratory Rate 12 Blood Pressure Pulse Oximetry 97 Oxygen Delivery Mechanical Ventilation Fraction of Inspired Oxygen 35 35 01/28/25 08:00 01/28/25 08:00 01/28/25 08:00 Temperature 97.1 F L Pulse Rate 83 83 Respiratory Rate 22 H Blood Pressure 151/95 H Pulse Oximetry 98 96 Oxygen Delivery Mechanical Ventilation Fraction of Inspired Oxygen 01/28/25 09:32 01/28/25 10:00 01/28/25 10:00 Temperature 97.0 F L Pulse Rate 85 75 78 Respiratory Rate 23 H Blood Pressure 139/95 H Pulse Oximetry 100 Oxygen Delivery Fraction of Inspired Oxygen 01/28/25 10:08 01/28/25 12:00 Temperature 98.0 F Pulse Rate 82 Respiratory Rate 15 Blood Pressure 148/89 H Pulse Oximetry 98 96 Oxygen Delivery Mechanical Ventilation Fraction of Inspired Oxygen 30 Intake/Output Intake/Output: Intake & Output 01/25/25 01/26/25 01/27/25 01/28/25 23:59 23:59 23:59 23:59 Intake Total 1311.5 1494 1016 1030 Output Total 9280 993 0362 600 Balance 261.5 594 -768 430 Meds/Results Medications: Active Medications Generic Name Dose Route Start Last Admin Trade Name Freq PRN Reason Stop Dose Admin Acetaminophen 650 mg 01/23/25 14:11 01/27/25 21:51 Acetaminophen 325 Mg Tablet FEED TUBE 650 mg Q4H PRN Administration Fever 1-3 Albuterol/Ipratropium 3 ml 01/26/25 14:00 01/28/25 07:33 Ipratropium 0.5 Mg/Albuterol Sulfate 2.5 Mg Ampul.Neb 3 Ml INHALATION 3 ml Q6HRT MEENA Administration Alteplase, Recombinant 2 mg 01/27/25 14:40 01/27/25 16:10 Alteplase 2 Mg Vial (Cathflo) IV PUSH 2 mg ONCE PRN Administration Line Occlusion Amlodipine Besylate 5 mg 01/25/25 09:00 01/28/25 08:13 Amlodipine Besylate 5 Mg Tablet FEED TUBE 5 mg DAILY MEENA Administration Budesonide 0.5 mg 01/26/25 10:00 01/28/25 07:33 Budesonide Respule Neb 0.5 Mg/2 Ml Amp INHALATION 0.5 mg Q12HRT MEENA Administration Dextrose 12.5 gm 01/20/25 08:23 Dextrose 50% 25 Gm/50 Ml Syringe IV PUSH PRN PRN Hypoglycemia Protocol Epoetin Emil-epbx 10,000 units 01/23/25 09:00 01/28/25 08:13 Epoetin Emil-Epbx 10,000 Units/Ml Vial SUB-Q 10,000 units TUTHSA@09 MEENA Administration Folic Acid 1 mg 01/20/25 09:00 01/28/25 08:14 Folic Acid 1 Mg/0.2 Ml Inj IV PUSH 1 mg QAM MEENA Administration Glucagon 1 mg 01/20/25 08:23 Glucagon For Inj 1 Mg Vial IM PRN PRN Hypoglycemia Protocol Glucose 15 gm 01/20/25 08:23 Glucose Oral Gel 15 Gm Of Glucse In 37.5 Gm Tube PO PRN PRN Hypoglycemia Protocol Hydralazine HCl 20 mg 01/24/25 03:34 01/28/25 05:37 Hydralazine Hcl 20 Mg/Ml Vial IV PUSH 20 mg Q4H PRN Administration Hypertension Hydralazine HCl 25 mg 01/27/25 07:40 01/28/25 05:37 Hydralazine Hcl 25 Mg Tablet PO 25 mg Q8HR MEENA Administration Dextrose 1,000 mls @ 100 mls/hr 01/20/25 08:23 Dextrose 5% 1,000 Ml IVPB PRN PRN Hypoglycemia Protocol Insulin Aspart 3 - 6 units 01/20/25 12:00 01/28/25 12:00 Insulin Aspart (*Bkc) 100 Units/Ml SUB-Q Not Given Q6HR MEENA Protocol Labetalol HCl 20 mg 01/23/25 09:31 01/28/25 09:32 Labetalol Hcl Inj 100 Mg/20 Ml Vial IV PUSH 20 mg Q4H PRN Administration SBP > 160 and HR> 60 -1st choice Multi-Ingred Cream/Lotion/Oil/Oint 1 applic 01/22/25 21:00 01/28/25 08:14 Mineral Oil/White Petrolatum Ointment EACH EYE Not Given Q12HR MEENA Pantoprazole Sodium 40 mg 01/21/25 09:00 01/28/25 08:13 Pantoprazole Sodium Iv 40 Mg Vial IV PUSH 40 mg Q12HR MEENA Administration Sodium Chloride 10 ml 01/20/25 06:00 01/28/25 05:37 Central Line Flush IV PUSH 10 ml Q8HR MEENA Administration Sodium Chloride 20 ml 01/20/25 01:15 01/24/25 04:56 Central Line Flush IV PUSH 20 ml PRN PRN Administration after blood draws Thiamine HCl 100 mg 01/20/25 09:00 01/28/25 08:13 Thiamine Hcl 200 Mg/2 Ml Vial IV PUSH 100 mg QAM MEENA Administration Radiology Results: ITS Impressions Abdomen X-Ray 01/20/25 05:42 Impression: NG tube in satisfactory position. Small left pleural effusion. Chest/Abdomen/Pelvis CT 01/20/25 05:48 Impression: Moderate to large left pleural effusion with extensive left lower lobe atelectasis. Small right pleural effusion. 9 mm spiculated nodule in the right lower lobe, as detailed above, indeterminate. CT scan in 3 months advised. Consider PET/CT or attempted tissue sampling as indicated. Moderate emphysema. No definite evidence for GI bleed, but evaluation is limited without IV contrast and with oral contrast on board. Consider follow-up CT angiogram of the bowel to further evaluate for GI bleed, as indicated. Moderate abdominopelvic ascites. T12 compression fracture, somewhat age indeterminate, but new since 06/20/2024. Fractures of the right anterior acetabulum at the junction of the right superior pubic ramus and of the right inferior pubic ramus, acute to subacute in nature. Head CT 01/20/25 06:13 Impression: No intracranial hemorrhage, mass, or acute infarct. Atrophy and chronic white matter changes, as above. Wrist X-Ray 01/20/25 06:13 Impression: Probable chronic fracture deformities of the distal radius and ulnar styloid process, as detailed above. No definite acute fracture. Renal Ultrasound 01/21/25 08:42 IMPRESSION: 1. Medical renal disease. 2. Mild bilateral hydronephrosis. No nephrolithiasis. Hip/Pelvis X-Ray 01/24/25 11:12 Impression: 1: Healing right acetabular and inferior pubic rami fractures with callus form ation. Chest X-Ray 01/28/25 05:45 Impression: 1: Retrocardiac airspace consolidation which may represent atelectasis or pneumonia. No significant change. Labs Labs: Laboratory Results - last 24 hr 01/27/25 01/27/25 01/28/25 18:06 23:54 05:10 WBC RBC Hgb Hct MCV MCH MCHC RDW Plt Count MPV Puncture Site Left radial ABG pH 7.471 H ABG pCO2 38.4 ABG pO2 127.4 H ABG PO2/FiO2 Ratio 3.64 ABG HCO3 27.4 H ABG O2 Saturation 98.7 ABG O2 Content 16.3 ABG Base Excess 3.6 A-a Gradient 77.5 Oxyhemoglobin 97.6 Carboxyhemoglobin 0.9 Methemoglobin 0.2 Reduced Hemoglobin 1.3 Total Hemoglobin 11.7 L O2 Delivery Device Ventilator O2 Liters/Min Not Reportable Minute Volume 5.2 Vent Rate Not Reportable Vent Mode Asv FiO2 35 Tidal Volume Not Reportable PEEP 5 Peak Inspir Pressure Not Reportable Pressure Support Not Reportable Sodium Potassium Chloride Carbon Dioxide Anion Gap BUN Creatinine Estim Creat Clear Calc Estimated GFR Glucose POC Capillary Glucose 102 104 Calcium Phosphorus Magnesium Total Bilirubin AST ALT Alkaline Phosphatase Total Protein Albumin Triglycerides 01/28/25 01/28/25 01/28/25 05:43 11:25 12:24 WBC 5.5 RBC 3.55 L Hgb 10.5 L Hct 34.5 L MCV 97.2 MCH 29.6 MCHC 30.4 L RDW 22.3 H Plt Count 33 L MPV 10.4 Puncture Site Right radial ABG pH 7.492 H ABG pCO2 36.2 ABG pO2 92.7 ABG PO2/FiO2 Ratio 3.09 ABG HCO3 27.1 H ABG O2 Saturation 97.6 ABG O2 Content 16.3 ABG Base Excess 3.8 A-a Gradient 78.7 Oxyhemoglobin 96.2 Carboxyhemoglobin Methemoglobin Reduced Hemoglobin Total Hemoglobin 12.0 O2 Delivery Device Ventilator O2 Liters/Min Not Reportable Minute Volume Vent Rate Vent Mode FiO2 30 Tidal Volume PEEP Peak Inspir Pressure Pressure Support Sodium 145 Potassium 3.2 L Chloride 107 Carbon Dioxide 30 Anion Gap 8 BUN 71 H Creatinine 2.00 H Estim Creat Clear Calc 17 Estimated GFR 25 L Glucose 127 H POC Capillary Glucose 96 Calcium 8.0 L Phosphorus 3.2 Magnesium 2.0 Total Bilirubin 1.0 AST 31 ALT 28 Alkaline Phosphatase 75 Total Protein 5.2 L Albumin 3.1 L Triglycerides 101 Quality VTE Prophylaxis VTE prophylaxis: mechanical ordered
[2025-01-28 13:19] LABS: Arterial Blood Gas Ventilator rate 0 /MIN; Peak Inspiratory Pressure 0 cmH2O
[2025-01-28 13:20] LABS: Arterial Blood Gas Minute Volume 0.0 LPM; Arterial Blood Gas Pressure Support 8 cmH2O; Arterial Blood Gas Tidal Volume 0 ml
[2025-01-29] VITALS (32 sets, daily range): BP systolic 130–173; BP diastolic 11–105; PULSE 74–110; RESP 19–28; TEMP 36–37.1; O2SAT 91–100
[2025-01-29] MEDS: IPRATROPIUM 0.5 MG/ALBUTEROL SULFATE 2.5 MG AMPUL.NEB 3 ML INHALATION ×4 (02:54→20:36)
[2025-01-29 05:11] LABS: Hematocrit 35.7 % (37.0-47.0); Hemoglobin 10.7 g/dL (12.0-15.0); Immature Granulocyte Percent A 0.8 % (0-0.5); Immature Platelet Fraction Pct 3.5 % (0.9-11.2); Lymphocytes Absolute Auto 1.24 K/mm3 (0.9-3.2); Mean Corpuscular HGB Conc 30.0 g/dl (32-36); Mean Corpuscular Hemoglobin 30.1 pg (26-34); Mean Corpuscular Volume 100.3 fl (80-100); Nucleated Red Blood Cells Absolute Auto 0.000 K/mm3 (0.0-0.012); Nucleated Red Blood Cells Perc 0.0 % (0.0-0.2); Platelet Count Result 32 k/mm3 (150-375); Red Blood Count 3.56 M/mm3 (4.2-5.4); White Blood Count 6.1 K/mm3 (4.5-10.0)
[2025-01-29 05:31] LABS: Alanine Aminotransferase 25 U/L (6-35); Albumin Level 3.1 g/dL (3.5-5.1); Alkaline Phosphatase 72 U/L (38-126); Anion Gap 7 mmol/L (4-12); Aspartate Amino Transferase 28 U/L (14-36); Bilirubin,Total 1.3 mg/dL (0.2-1.3); Blood Urea Nitrogen 63 mg/dL (7-17); Calcium 8.3 mg/dL (8.4-10.2); Carbon Dioxide 28 mmol/L (22-30); Chloride 112 mmol/L (98-107); Estimated CRCL calculation 16 ml/min; Estimated Glomerular Filt Rate 25; Glucose 82 mg/dL (65-110); Magnesium 1.9 mg/dL (1.6-2.3); Potassium 4.3 mmol/L (3.4-5.0); Sodium 147 mmol/L (137-145); Total Protein 5.5 g/dL (6.3-8.2)
[2025-01-29] MEDS: CENTRAL LINE FLUSH 10 ML IV PUSH (06:19)
[2025-01-29] MEDS: BUDESONIDE RESPULE NEB 0.5 MG/2 ML AMP INHALATION ×2 (07:01→20:36)
[2025-01-29] MEDS: THIAMINE HCL 200 MG/2 ML VIAL 100 MG IV PUSH (08:18)
[2025-01-29] MEDS: PANTOPRAZOLE SODIUM IV 40 MG VIAL IV PUSH ×2 (08:18→21:43)
[2025-01-29] MEDS: FOLIC ACID 1 MG/0.2 ML INJ IV PUSH (08:18)
--- NOTE | 2025-01-29 10:21 | PCSTNOTE ---
Please refer to the Bedside Swallow Evaluation in the EMR. Please note, silent aspiration cannot be ruled out at bedside.
--- NOTE | 2025-01-29 11:35 | P.PNNP_ITS ---
Progress Note: A&P Assessment and Plan (1) Acute kidney injury: Code(s): N17.9 - Acute kidney failure, unspecified Status: Acute Assessment and Plan: * relatively stable if not better * as noted on admission (creatinine of 3.43mg/dl) * likely due to multiple issues: * prerenal factors (poor nutrition) * anemia/GI bleed * infection/sepsis (+ blood cultures) * respiratory failure * hypoxia * liver disease/cirrhosis * progression of underlying CKD * other(?) * evaluation to date noted: * renal ultrasound with CKD and mild bilateral hydronephrosis - mcqueen cathter placed * urine electrolytes prerenal - suspect due to a combination of poor oral intake AND liver disease/physiology (decreased effective circulating volume) * urine eosinophils negative * CPK low * ~ 2 grams of proteinuria * maintain hemodynamics and H/H as tolerated * noted reasonable urine output * responsive to IV diuretic therapy * follow trend of repeat labs and UOP (2) Stage 4 chronic kidney disease: Code(s): N18.4 - Chronic kidney disease, stage 4 (severe) Status: Chronic Assessment and Plan: * not entirely clear what baseline creatinine really is.... * was noted to be ~ 1.4 - 1.6mg/dl in June 2024 * however, since December 2024, has been running ~ 2.4 - 2.6mg/dl (from record review from [facility]) * most recent labs done on 01/15/25 -- creatinine up to 2.79mg/dl (ER visit at [facility] prior to leaving [place]) * possible baseline creatinine around 2ish range?? (3) Acute hypoxic respiratory failure: Code(s): J96.01 - Acute respiratory failure with hypoxia Status: Acute Assessment and Plan: * resolving * multifactorial: * inability to protect airway * aspiration pneumonia * pleural effusions * suspected upper GI bleed * complicated by underlying COPD * imaging noted * IV diuretics PRN for fluid overload (follow CXR results) * failed trial of extubation (on 01/24) * successful extubation on 01/28 * follow respiratory status (4) Acute upper GI bleeding: Code(s): K92.2 - Gastrointestinal hemorrhage, unspecified Status: Acute Assessment and Plan: * stable/resolved * suspected based on admission events/presentation * GI following * s/p EGD (on 01/20): * noted erosive esophagitis but no varices or bleeding lesions noted * PRBC transfusion per protocol * corrected coagulopathy * IV PPI * follow trend on H/H (5) Sepsis: Code(s): A41.9 - Sepsis, unspecified organism Status: Acute Assessment and Plan: * resolved * possibly from pneumonia (aspiration) versus UTI * follow culture data: * blood cultures (from 01/20): Staphylococcus hominis (suspect contamination) * urine culture - no growth to date * completed course of antibiotics * stable hemodynamics noted (6) Anemia: Code(s): D64.9 - Anemia, unspecified Status: Acute Assessment and Plan: * due to several issues: * due to underlying CKD * iron deficiency * #3 - GI following * liver disease * coagulopathy/thrombocytopenia * other * PRBC transfusion as needed * Epogen while hospitalized * follow trend of H/H (7) Coagulopathy: Code(s): D68.9 - Coagulation defect, unspecified Status: Acute Assessment and Plan: * probably secondary to liver cirrhosis * complicated by thrombocytopenia also related to liver disease * s/p cryoprecipitate, platelets, and FFP transfusion * follow platelet count and INR (8) Alcoholic cirrhosis of liver with ascites: Code(s): K70.31 - Alcoholic cirrhosis of liver with ascites Status: Acute Assessment and Plan: * as evidence by admission CT/imaging findings * presumably partly related to alcohol intake * GI following (9) Transaminitis: Code(s): R74.01 - Elevation of levels of liver transaminase levels Status: Acute Assessment and Plan: * noted by admission labs * suspect secondary to/consistent with with alcoholic liver disease * appear to be stabilizing * Hepatitis C antibody screen is positive -- RNA quantitative is [id number] * will need follow-up as an outpatient basis for hepatitis C infection (10) Acetabular fracture: Qualifiers: Encounter type: initial encounter Fracture alignment: nondisplaced F racture type: closed Laterality: right Sublocation of acetabulum: unspecified portion of acetabulum Qualified Code(s): S32.401A - Unspecified fracture of right acetabulum, initial encounter for closed fracture Code(s): S32.409A - Unspecified fracture of unspecified acetabulum, initial encounter for closed fracture Status: Acute Assessment and Plan: * as noted by admission CT imaging: * fractures of the right anterior acetabulum at the junction of the right superior pubic ramus and of the right inferior pubic ramus, acute to subacute in nature * Orthopedic Surgery recommendations * repeat imaging X-rays noted: healing right acetabular and inferior pubic rami fractures with callus formation (11) Distal radial fracture: Qualifiers: Encounter type: subsequent encounter Fracture healing: with nonunion F racture morphology: unspecified fracture morphology Fracture type: closed L aterality: left Qualified Code(s): S52.502K - Unspecified fracture of the lower end of left radius, subsequent encounter for closed fracture with nonunion Code(s): S52.509A - Unspecified fracture of the lower end of unspecified radius, initial encounter for closed fracture Status: Acute Assessment and Plan: * apparently chronic in nature by X-rays * Orthopedic Surgery recommendations reviewed (12) Alcohol abuse: Code(s): F10.10 - Alcohol abuse, uncomplicated Status: Acute Assessment and Plan: * known history * on thiamine and folate Will continue to follow. L Subjective Date/time seen: 01/29/25 11:35 Interval history: Follow-up for acute kidney injury/acute renal failure on chronic kidney disease. Successfully extubated yesterday and weaned to 2L oxygen by nasal cannula with adequate oxygen saturations; mentation appears stable at the time of my visit as is hemodynamics; renal function/creatinine relatively stable by trend of labs with reasonably urine output noted; low platelet count noted; no other acute complaints voiced. Exam 2 Narrative: General: frail and cachectic female in NAD Heart: normal S1 and S2; no rub Lungs: coarse breath sounds; decreased throughout Abdomen: soft, nontender, nondistended, positive bowel sounds Extremities: no cyanosis or clubbing; trace edema Skin: no rash Objective Data Vital Signs Vital Signs: Vital Signs Temp Pulse Resp BP Pulse Ox O2 Del Method O2 Flow Rate 01/29/25 10:00 97.7 F 82 24 H 158/99 H 99 01/29/25 09:27 87 01/29/25 08:04 88 27 H 167/105 H 100 01/29/25 08:00 87 01/29/25 07:57 98 BiPAP 01/29/25 07:36 97.3 F L 01/29/25 06:59 82 20 01/29/25 06:56 82 20 98 BiPAP 01/29/25 06:00 86 24 H 157/103 H 95 01/29/25 06:00 86 01/29/25 05:33 84 19 98 BiPAP 01/29/25 04:00 97.0 F L 78 21 H 157/99 H 98 01/29/25 04:00 80 01/29/25 04:00 100 BiPAP 01/29/25 03:04 76 19 01/29/25 02:56 74 19 01/29/25 02:55 74 19 100 BiPAP 01/29/25 02:06 80 01/29/25 02:00 80 22 H 167/103 H 99 01/29/25 02:00 80 01/29/25 00:00 76 01/29/25 00:00 100 BiPAP 01/29/25 00:00 96.8 F L 78 19 173/11 H 100 01/28/25 23:39 79 19 100 BiPAP 01/28/25 22:00 73 01/28/25 22:00 73 19 155/97 H 100 01/28/25 21:22 83 18 01/28/25 21:15 71 01/28/25 21:06 79 18 01/28/25 21:00 76 18 100 BiPAP 01/28/25 20:00 73 01/28/25 20:00 100 BiPAP 01/28/25 20:00 96.9 F L 75 17 162/101 H 100 01/28/25 18:00 73 01/28/25 18:00 96.7 F L 71 21 H 139/97 H 100 01/28/25 17:42 82 01/28/25 17:30 161/105 H 01/28/25 17:18 78 14 99 BiPAP 01/28/25 16:37 96.8 F L 01/28/25 16:00 98 BiPAP 01/28/25 16:00 79 01/28/25 16:00 80 21 H 148/102 H 100 Intake/Output Intake/Output: Intake & Output 01/26/25 01/27/25 01/28/25 01/29/25 23:59 23:59 23:59 23:59 Intake Total 1494 1016 1030 Output Total 900 1300 1150 650 Balance 170 -284 -120 -650 Meds/Results Medications: Active Medications Generic Name Dose Route Start Last Admin Trade Name Freq PRN Reason Stop Dose Admin Acetaminophen 650 mg 01/23/25 14:11 01/27/25 21:51 Acetaminophen 325 Mg Tablet FEED TUBE 650 mg Q4H PRN Administration Fever 1-3 Albuterol/Ipratropium 3 ml 01/26/25 14:00 01/29/25 13:47 Ipratropium 0.5 Mg/Albuterol Sulfate 2.5 Mg Ampul.Neb 3 Ml INHALATION 3 ml Q6HRT MEENA Administration Alteplase, Recombinant 2 mg 01/27/25 14:40 01/27/25 16:10 Alteplase 2 Mg Vial (Cathflo) IV PUSH 2 mg ONCE PRN Administration Line Occlusion Amlodipine Besylate 5 mg 01/25/25 09:00 01/29/25 08:25 Amlodipine Besylate 5 Mg Tablet FEED TUBE 5 mg DAILY MEENA Administration Budesonide 0.5 mg 01/26/25 10:00 01/29/25 07:01 Budesonide Respule Neb 0.5 Mg/2 Ml Amp INHALATION 0.5 mg Q12HRT MEENA Administration Dextrose 12.5 gm 01/20/25 08:23 01/29/25 11:47 Dextrose 50% 25 Gm/50 Ml Syringe IV PUSH 12.5 gm PRN PRN Administration Hypoglycemia Protocol Epoetin Emil-epbx 10,000 units 01/23/25 09:00 01/28/25 08:13 Epoetin Emil-Epbx 10,000 Units/Ml Vial SUB-Q 10,000 units TUTHSA@09 MEENA Administration Folic Acid 1 mg 01/20/25 09:00 01/29/25 08:18 Folic Acid 1 Mg/0.2 Ml Inj IV PUSH 1 mg QAM MEENA Administration Glucagon 1 mg 01/20/25 08:23 Glucagon For Inj 1 Mg Vial IM PRN PRN Hypoglycemia Protocol Glucose 15 gm 01/20/25 08:23 Glucose Oral Gel 15 Gm Of Glucse In 37.5 Gm Tube PO PRN PRN Hypoglycemia Protocol Hydralazine HCl 20 mg 01/24/25 03:34 01/28/25 05:37 Hydralazine Hcl 20 Mg/Ml Vial IV PUSH 20 mg Q4H PRN Administration Hypertension Hydralazine HCl 25 mg 01/27/25 07:40 01/29/25 06:19 Hydralazine Hcl 25 Mg Tablet PO Not Given Q8HR [facility] Dextrose 1,000 mls @ 100 mls/hr 01/20/25 08:23 Dextrose 5% 1,000 Ml IVPB PRN PRN Hypoglycemia Protocol Insulin Aspart 3 - 6 units 01/20/25 12:00 01/29/25 11:50 Insulin Aspart (*Bkc) 100 Units/Ml SUB-Q Not Given Q6HR MEENA Protocol Labetalol HCl 20 mg 01/23/25 09:31 01/29/25 09:27 Labetalol Hcl Inj 100 Mg/20 Ml Vial IV PUSH 20 mg Q4H PRN Administration SBP > 160 and HR> 60 -1st choice Multi-Ingred Cream/Lotion/Oil/Oint 1 applic 01/22/25 21:00 01/29/25 08:27 Mineral Oil/White Petrolatum Ointment EACH EYE Not Given Q12HR MEENA Pantoprazole Sodium 40 mg 01/21/25 09:00 01/29/25 08:18 Pantoprazole Sodium Iv 40 Mg Vial IV PUSH 40 mg Q12HR MEENA Administration Perflutren Lipid Microsphere 0 ml 01/29/25 14:20 Perflutren Lipid Microspheres 1.5 Ml Vial Diluted To 10 Ml Total Volume IV PUSH 02/01/25 14:20 ONCE PRN adequate visualization Protocol Sodium Chloride 10 ml 01/20/25 06:00 01/29/25 06:19 Central Line Flush IV PUSH 10 ml Q8HR MEENA Administration Sodium Chloride 20 ml 01/20/25 01:15 01/24/25 04:56 Central Line Flush IV PUSH 20 ml PRN PRN Administration after blood draws Thiamine HCl 100 mg 01/20/25 09:00 01/29/25 08:18 Thiamine Hcl 200 Mg/2 Ml Vial IV PUSH 100 mg QAM MEENA Administration Radiology Results: ITS Impressions Abdomen X-Ray 01/20/25 05:42 Impression: NG tube in satisfactory position. Small left pleural effusion. Chest/Abdomen/Pelvis CT 01/20/25 05:48 Impression: Moderate to large left pleural effusion with extensive left lower lobe atelectasis. Small right pleural effusion. 9 mm spiculated nodule in the right lower lobe, as detailed above, indeterminate. CT scan in 3 months advised. Consider PET/CT or attempted tissue sampling as indicated. Moderate emphysema. No definite evidence for GI bleed, but evaluation is limited without IV contrast and with oral contrast on board. Consider follow-up CT angiogram of the bowel to further evaluate for GI bleed, as indicated. Moderate abdominopelvic ascites. T12 compression fracture, somewhat age indeterminate, but new since 06/20/2024. Fractures of the right anterior acetabulum at the junction of the right superior pubic ramus and of the right inferior pubic ramus, acute to subacute in nature. Head CT 01/20/25 06:13 Impression: No intracranial hemorrhage, mass, or acute infarct. Atrophy and chronic white matter changes, as above. Wrist X-Ray 01/20/25 06:13 Impression: Probable chronic fracture deformities of the distal radius and ulnar styloid process, as detailed above. No definite acute fracture. Renal Ultrasound 01/21/25 08:42 IMPRESSION: 1. Medical renal disease. 2. Mild bilateral hydronephrosis. No nephrolithiasis. Hip/Pelvis X-Ray 01/24/25 11:12 Impression: 1: Healing right acetabular and inferior pubic rami fractures with callus formation. Chest X-Ray 01/28/25 05:45 Impression: 1: Retrocardiac airspace consolidation which may represent atelectasis or pneumonia. No significant change. Labs Labs: Laboratory Tests 01/29/25 04:58 01/29/25 04:58 Calcium 8.3 L Phosphorus 3.5 Magnesium 1.9 Total Bilirubin 1.3 AST 28 ALT 25 Alkaline Phosphatase 72 Total Protein 5.5 L Albumin 3.1 L
[2025-01-29] MEDS: DEXTROSE 50% 25 GM/50 ML SYRINGE IV PUSH (11:47)
--- NOTE | 2025-01-29 11:56 | PCNFU ---
Addendum entered by Maryanne Carrasquillo RD, LDN 01/29/25 14:13: MBS performed recommending pureed, Level 4 with Mildly Thick liquids, level 2. Recommending diet supplements to be added TID for additional 350 kcal and 20 gm protein. Agree with diet orders at this time. Following every 5 days. Original Note: Nutrition Follow-Up Complete: Severe Protein Calorie Malnutrition as related to inadequate protein-energy intake with increased protein-energy needs in setting of chronic disease as evidenced by minimal oral intake for >1-2 months; severe subcutaneous fat loss (orbital fat pads) and severe muscle wasting (temporalis). Goal: Meet estimated nutritional needs Patient will continue current goal. Pt current nutrition is NPO. Nutrition recommendation: Awaiting for MBS. Last recorded weight is 39.7 kg, stable Bowel Motility: Last reported BM 01/29 Labs Reviewed:BUN 63, Na 147, Hct 35.7, Hgb 10.7, Cr 2.06 Meds Noted:Thiamine, Folic Acid, Protonix. Skin: WNL Additional Notes: Patient extubated on 01/28. NPO at this time awaiting for MBS evaluation. Will give further recommendations once MBS testing completed. Will monitor weight, labs, skin, diet orders, meds every 3 days.
--- NOTE | 2025-01-29 12:15 | PC.NURSE ---
Spoke with Dr Grayson who gave order for the patient to be weight bearing as tolerated for upper and lower extremities.
--- NOTE | 2025-01-29 12:18 | PCPTNOTE ---
Attempted PT evaluation, pt adamantly refused. Pt repeatedly stated I am tired. Pt education on benefits of getting out of bed, but continue to refuse to participate with therapy. Nurse aware. Will follow.
--- NOTE | 2025-01-29 13:39 | PCSTNOTE ---
Please refer to the Modified Barium Swallow Evaluation in the EMR. The above patient, who was intubated for 8 days, was seen for a modified barium swallow after showing overt signs and symptoms of aspiration during the BSE. She was alert but confused and exhibited a very weak & soft vocal quality. The patient was also noted to be edentulous (the RN was unsure if any dentures were available at the hospital). The patient was seated for a lateral view and presented with 5 ml of thin liquid barium via a spoon, pudding consistency barium via a spoon, a crumbled cracker coated with barium pudding via a spoon, and uncontrolled thin liquid barium via a cup & straw, and mildly thick liquid barium via a straw. Oral preparatory and oral phase symptoms: WFL. Pharyngeal phase symptoms: reduced laryngeal elevation as evidenced by laryngeal penetration during the swallow (thin liquids) and reduced laryngeal closure as evidenced by aspiration during the swallow of thin liquids. The aspiration was a trace amount but was silent; with a verbal cue to cough and throat clear, she was able to clear a portion of the aspirate. No esophageal symptoms were exhibited. Impression: Moderate/severe dysphagia characterized by the instance of silent aspiration of thin liquids. Recommendation: pureed diet level 4 and mildly thick liquids level 2. ST to treat and reassess pt's ability to manage solids if dentures are found.
--- NOTE | 2025-01-29 13:41 | P.PNINT_ITS ---
Progress Note: A&P Assessment and Plan (1) Acute hypoxic respiratory failure: Code(s): J96.01 - Acute respiratory failure with hypoxia Status: Acute Assessment and Plan: Acute respiratory failure secondary to aspiration pneumonia pleural effusion upper GI bleed with underlying COPD 01/20: Intubated in the ER on admission 01/24 patient was successfully extubated, Post extubation patient was tachypneic. She was placed on BiPAP but her tachypnea and work of breathing worsened and she complained of being short of breath. Was reintubate about an hour post extubation on the same day 01/24: Reintubated -01/28: Extubated successfully to AVAPS. Tolerated AVAPS all day and all night -placed on 2 L nasal cannula with adequate O2 sats and no respiratory distress -will continue BiPAP/AVAPS while pt is sleeping -pulmonology will be consulted -continue bronchodilators (2) Acute upper GI bleeding: Code(s): K92.2 - Gastrointestinal hemorrhage, unspecified Status: Acute Assessment and Plan: Acute upper GI bleed 01/20 EGD showed reflux/erosive/ulcerative esophagitis and hiatal hernia, no variceal bleed Status post transfusion of multiple units of PRBC Coagulopathy cryo and FFP Hemoglobin appears to be now stable. I will continue monitoring hemoglobin and transfuse additional PRBC if needed continue IV PPI. Octreotide was discontinued GI following (3) Transaminitis: Code(s): R74.01 - Elevation of levels of liver transaminase levels Status: Acute Assessment and Plan: AST and ALT mildly elevated likely consistent with alcoholic liver disease. Hepatitis C antibody screen is positive. RNA quantitative is [id number] -LFTs have normalized, continue to monitor (4) Alcoholic cirrhosis of liver with ascites: Code(s): K70.31 - Alcoholic cirrhosis of liver with ascites Status: Acute Assessment and Plan: Patient has cirrhosis from alcohol liver disease with CT scan showing ascites (5) Acute kidney injury superimposed on stage 4 chronic kidney disease: Code(s): N17.9 - Acute kidney failure, unspecified; N18.4 - Chronic kidney disease, stage 4 (severe) Status: Acute Assessment and Plan: Baseline creatinine in mid 2 Patient was given IV fluids but now off due to concern of volume overload and patient has also received significant amount of blood products. Monitor urine output electrolytes and creatinine CT scans not show any obstruction or stone Renal ultrasound showed mild bilateral hydronephrosis without any stones Appreciate nephrology following the patient. Patient responded well to Lasix for volume overload Chest x-ray shows bilateral infiltrates, possible edema, pneumonia or atelectasis, will give additional dose of Lasix today phosphorus has normalized -creatinine is improving (6) Coagulopathy: Code(s): D68.9 - Coagulation defect, unspecified Status: Acute Assessment and Plan: Coagulopathy secondary to cirrhosis and sepsis Patient received cryo and platelets, and FFP (7) Sepsis: Code(s): A41.9 - Sepsis, unspecified organism Status: Acute Assessment and Plan: Sepsis likely secondary to pneumonia which could be aspiration Blood cultures grew Staph hominis which is likely contaminant. Will discontinue vancomycin On IV Zosyn (end date 01/26) UA and micro also suggestive UTI. Urine cultures Negative (8) Anemia: Code(s): D64.9 - Anemia, unspecified Status: Acute Assessment and Plan: Likely multifactorial anemia from iron deficiency and anemia of chronic kidney disease along with acute blood loss Patient received a dose of iron And she has received for units of PRBC. Hemoglobin appears to have stabilized Monitor and transfuse additional if needed Management of GI bleeding as above Epogen per Nephrology (9) Thrombocytopenia: Code(s): D69.6 - Thrombocytopenia, unspecified Status: Acute Assessment and Plan: Thrombocytopenia likely combination of sepsis and cirrhosis. 01/20 Platelet transfusion -continue to monitor platelet level (10) Alcohol abuse: Code(s): F10.10 - Alcohol abuse, uncomplicated Status: Acute Assessment and Plan: History of alcohol abuse. Off all sedation Continue thiamine and folic acid (11) Severe protein-calorie malnutrition: Code(s): E43 - Unspecified severe protein-calorie malnutrition Status: Acute Assessment and Plan: Appears Malnourished and cachectic. -off tube feeds, -patient had a modified barium swallow test done on 01/29, speech therapy recommended: pureed diet level 4 and mildly thick liquids level 2. ST to treat and reassess pt's ability to manage solids if dentures are found (12) Acetabular fracture: Qualifiers: Encounter type: initial encounter Fracture alignment: nondisplaced Fracture type: closed Laterality: right Sublocation of acetabulum: unspecified portion of acetabulum Qualified Code(s): S32.401A - Unspecified fracture of right acetabulum, initial encounter for closed fracture Code(s): S32.409A - Unspecified fracture of unspecified acetabulum, initial encounter for closed fracture Status: Acute Assessment and Plan: Orthopedics evaluate the patient . No further recommendations at this time (13) Distal radial fracture: Qualifiers: Encounter type: subsequent encounter Fracture type: closed Fracture morphology: unspecified fracture morphology Laterality: left Fracture healing: with nonunion Qualified Code(s): S52.502K - Unspecified fracture of the lower end of left radius, subsequent encounter for closed fracture with nonunion Code(s): S52.509A - Unspecified fracture of the lower end of unspecified radius, initial encounter for closed fracture Status: Acute Assessment and Plan: seen by orthopedics. Splint removed as per recommendations. Plan DVT prophylaxis -SCDs Stress ulcer prophylaxis -Protonix IV Nutrition -modified swallow evaluation PT/OT/speech therapy for bedside swallow evaluation were ordered Code Status - Full Code Total Critical Care Time - 31 minutes Patient will transfer out of the ICU to intermediate Unit 01/28: D/w pt in front of the bedside RN Shelby and explained to her that I will be extubating her and what if she fails, would she want to be intubated for he 3rd time with a caveat that she would then get a tracheostomy and a PEG tube and then will be transferred to a LTAC facility. She agreed to being reintubated if needed. Due to a high probability of clinically significant, life threatening deterioration, the patient required my highest level of preparedness to intervene emergently and I personally spent this critical care time directly and personally managing the patient. This critical care time included obtaining a history; examining the patient; pulse oximetry; ordering and review of studies; arranging urgent treatment with development of a management plan; evaluation of patient's response to treatment; frequent reassessment; and discussions with other providers. It was exclusive of separately billable procedures and treating other patients and teaching time. Please see Assessment and Plan section and the rest of the note for further information on patient assessment and treatment This dictation may have been done utilizing a voice recognition system. Attempts have been made to correct errors. However, there may be uncorrected grammatical, spelling, and recognitions errors present. Subjective Date/time seen: 01/29/25 13:41 Interval history: Reason for consult, GI bleed, acute renal failure, hypotension, shock, pneumonia, respiratory failure, required multiple blood product transfusion, transaminitis coagulopathy, thrombocytopenia, alcohol abuse, severe protein calorie malnutrition, acetabular fracture, distal radial fracture 01/20: EGD showed reflux/erosive/ulcerative esophagitis, hiatal hernia. No varices 01/20: Intubation in the ER 01/24: Extubated 01/24: Reintubated 01/28: Extubated 01/29/2025: Patient seen and examined the ICU, remains extubated, was on AVAPS yesterday and all night. This morning has been on 2 L oxygen with adequate O2 sats, is awake, alert, able to answer questions, voice is soft likely due to intubation. Follows simple commands, hemodynamically stable. Denies any chest pain, shortness of breath, abdominal pain, nausea, vomiting. Urine output has been adequate. Platelet counts remain 32. Review of Systems Review of Systems: All systems reviewed & are unremarkable except as noted in HPI and below Exam Narrative: General: Pt is cachectic, appears older than her age, is awake and alert in no distress HEENT: Pupils are equal and reactive, sclera is clear, Lungs/Chest: Clear to auscultation bilaterally, decreased at bases, no wheezing, adequate air entry Cardiac: RRR. Normal S1 S2. No murmurs Abdomen: Normoactive bowel sounds. Soft. NT. ND. Extremities: No clubbing, cyanosis or edema. Pedal pulses are intact : Mclean in place Neurologic: Patient is awake, alert, able to answer questions, follows simple commands, her voice is soft Skin: NO skin lesions Objective Data Vital Signs Vital Signs: Vital Signs - 24 hr 01/28/25 14:00 01/28/25 14:00 01/28/25 14:05 Temperature 97.5 F L Pulse Rate 79 78 78 Respiratory Rate 22 H 16 Blood Pressure 150/95 H Pulse Oximetry 99 Oxygen Delivery Oxygen Flow Rate Fraction of Inspired Oxygen 01/28/25 16:00 01/28/25 16:00 01/28/25 16:00 Temperature Pulse Rate 80 79 Respiratory Rate 21 H Blood Pressure 148/102 H Pulse Oximetry 100 98 Oxygen Delivery BiPAP Oxygen Flow Rate Fraction of Inspired Oxygen 01/28/25 16:37 01/28/25 17:18 01/28/25 17:30 Temperature 96.8 F L Pulse Rate 78 Respiratory Rate 14 Blood Pressure 161/105 H Pulse Oximetry 99 Oxygen Delivery BiPAP Oxygen Flow Rate Fraction of Inspired Oxygen 01/28/25 17:42 01/28/25 18:00 01/28/25 18:00 Temperature 96.7 F L Pulse Rate 82 71 73 Respiratory Rate 21 H Blood Pressure 139/97 H Pulse Oximetry 100 Oxygen Delivery Oxygen Flow Rate Fraction of Inspired Oxygen 01/28/25 20:00 01/28/25 20:00 01/28/25 20:00 Temperature 96.9 F L Pulse Rate 75 73 Respiratory Rate 17 Blood Pressure 162/101 H Pulse Oximetry 100 100 Oxygen Delivery BiPAP Oxygen Flow Rate Fraction of Inspired Oxygen 30 01/28/25 21:00 01/28/25 21:06 01/28/25 21:15 Temperature Pulse Rate 76 79 71 Respiratory Rate 18 18 Blood Pressure Pulse Oximetry 100 Oxygen Delivery BiPAP Oxygen Flow Rate Fraction of Inspired Oxygen 01/28/25 21:22 01/28/25 22:00 01/28/25 22:00 Temperature Pulse Rate 83 73 73 Respiratory Rate 18 19 Blood Pressure 155/97 H Pulse Oximetry 100 Oxygen Delivery Oxygen Flow Rate Fraction of Inspired Oxygen 01/28/25 23:39 01/29/25 00:00 01/29/25 00:00 Temperature 96.8 F L Pulse Rate 79 78 Respiratory Rate 19 19 Blood Pressure 173/11 H Pulse Oximetry 100 100 100 Oxygen Delivery BiPAP BiPAP Oxygen Flow Rate Fraction of Inspired Oxygen 01/29/25 00:00 01/29/25 02:00 01/29/25 02:00 Temperature Pulse Rate 76 80 80 Respiratory Rate 22 H Blood Pressure 167/103 H Pulse Oximetry 99 Oxygen Delivery Oxygen Flow Rate Fraction of Inspired Oxygen 01/29/25 02:06 01/29/25 02:55 01/29/25 02:56 Temperature Pulse Rate 80 74 74 Respiratory Rate 19 19 Blood Pressure Pulse Oximetry 100 Oxygen Delivery BiPAP Oxygen Flow Rate Fraction of Inspired Oxygen 01/29/25 03:04 01/29/25 04:00 01/29/25 04:00 Temperature Pulse Rate 76 80 Respiratory Rate 19 Blood Pressure Pulse Oximetry 100 Oxygen Delivery BiPAP Oxygen Flow Rate Fraction of Inspired Oxygen 30 01/29/25 04:00 01/29/25 05:33 01/29/25 06:00 Temperature 97.0 F L Pulse Rate 78 84 86 Respiratory Rate 21 H 19 Blood Pressure 157/99 H Pulse Oximetry 98 98 Oxygen Delivery BiPAP Oxygen Flow Rate Fraction of Inspired Oxygen 01/29/25 06:00 01/29/25 06:56 01/29/25 06:59 Temperature Pulse Rate 86 82 82 Respiratory Rate 24 H 20 20 Blood Pressure 157/103 H Pulse Oximetry 95 98 Oxygen Delivery BiPAP Oxygen Flow Rate Fraction of Inspired Oxygen 01/29/25 07:36 01/29/25 07:57 01/29/25 08:00 Temperature 97.3 F L Pulse Rate 87 Respiratory Rate Blood Pressure Pulse Oximetry 98 Oxygen Delivery BiPAP Oxygen Flow Rate Fraction of Inspired Oxygen 30 01/29/25 08:04 01/29/25 09:27 01/29/25 10:00 Temperature 97.7 F Pulse Rate 88 87 82 Respiratory Rate 27 H 24 H Blood Pressure 167/105 H 158/99 H Pulse Oximetry 100 99 Oxygen Delivery Oxygen Flow Rate Fraction of Inspired Oxygen 01/29/25 10:00 01/29/25 12:00 01/29/25 12:00 Temperature 98.6 F Pulse Rate 83 85 Respiratory Rate 28 H Blood Pressure 151/89 H Pulse Oximetry 96 96 Oxygen Delivery High Flow Nasal Cannula Oxygen Flow Rate 2 Fraction of Inspired Oxygen 01/29/25 13:18 Temperature 98.1 F Pulse Rate 89 Respiratory Rate 23 H Blood Pressure 151/90 H Pulse Oximetry 97 Oxygen Delivery Oxygen Flow Rate Fraction of Inspired Oxygen Intake/Output Intake/Output: Intake & Output 01/26/25 01/27/25 01/28/25 01/29/25 23:59 23:59 23:59 23:59 Intake Total 1494 1016 1030 Output Total 900 1300 1150 550 Balance 622 -284 -120 -550 Meds/Results Medications: Active Medications Generic Name Dose Route Start Last Admin Trade Name Freq PRN Reason Stop Dose Admin Acetaminophen 650 mg 01/23/25 14:11 01/27/25 21:51 Acetaminophen 325 Mg Tablet FEED TUBE 650 mg Q4H PRN Administration Fever 1-3 Albuterol/Ipratropium 3 ml 01/26/25 14:00 01/29/25 07:01 Ipratropium 0.5 Mg/Albuterol Sulfate 2.5 Mg Ampul.Neb 3 Ml INHALATION 3 ml Q6HRT MEENA Administration Alteplase, Recombinant 2 mg 01/27/25 14:40 01/27/25 16:10 Alteplase 2 Mg Vial (Cathflo) IV PUSH 2 mg ONCE PRN Administration Line Occlusion Amlodipine Besylate 5 mg 01/25/25 09:00 01/29/25 08:25 Amlodipine Besylate 5 Mg Tablet FEED TUBE 5 mg DAILY MEENA Administration Budesonide 0.5 mg 01/26/25 10:00 01/29/25 07:01 Budesonide Respule Neb 0.5 Mg/2 Ml Amp INHALATION 0.5 mg Q12HRT MEENA Administration Dextrose 12.5 gm 01/20/25 08:23 01/29/25 11:47 Dextrose 50% 25 Gm/50 Ml Syringe IV PUSH 12.5 gm PRN PRN Administration Hypoglycemia Protocol Epoetin Emil-epbx 10,000 units 01/23/25 09:00 01/28/25 08:13 Epoetin Emil-Epbx 10,000 Units/Ml Vial SUB-Q 10,000 units TUTHSA@09 MEENA Administration Folic Acid 1 mg 01/20/25 09:00 01/29/25 08:18 Folic Acid 1 Mg/0.2 Ml Inj IV PUSH 1 mg QAM MEENA Administration Glucagon 1 mg 01/20/25 08:23 Glucagon For Inj 1 Mg Vial IM PRN PRN Hypoglycemia Protocol Glucose 15 gm 01/20/25 08:23 Glucose Oral Gel 15 Gm Of Glucse In 37.5 Gm Tube PO PRN PRN Hypoglycemia Protocol Hydralazine HCl 20 mg 01/24/25 03:34 01/28/25 05:37 Hydralazine Hcl 20 Mg/Ml Vial IV PUSH 20 mg Q4H PRN Administration Hypertension Hydralazine HCl 25 mg 01/27/25 07:40 01/29/25 06:19 Hydralazine Hcl 25 Mg Tablet PO Not Given Q8HR [facility] Dextrose 1,000 mls @ 100 mls/hr 01/20/25 08:23 Dextrose 5% 1,000 Ml IVPB PRN PRN Hypoglycemia Protocol Insulin Aspart 3 - 6 units 01/20/25 12:00 01/29/25 11:50 Insulin Aspart (*Bkc) 100 Units/Ml SUB-Q Not Given Q6HR [facility] Protocol Labetalol HCl 20 mg 01/23/25 09:31 01/29/25 09:27 Labetalol Hcl Inj 100 Mg/20 Ml Vial IV PUSH 20 mg Q4H PRN Administration SBP > 160 and HR> 60 -1st choice Multi-Ingred Cream/Lotion/Oil/Oint 1 applic 01/22/25 21:00 01/29/25 08:27 Mineral Oil/White Petrolatum Ointment EACH EYE Not Given Q12HR MEENA Pantoprazole Sodium 40 mg 01/21/25 09:00 01/29/25 08:18 Pantoprazole Sodium Iv 40 Mg Vial IV PUSH 40 mg Q12HR MEENA Administration Sodium Chloride 10 ml 01/20/25 06:00 01/29/25 06:19 Central Line Flush IV PUSH 10 ml Q8HR MEENA Administration Sodium Chloride 20 ml 01/20/25 01:15 01/24/25 04:56 Central Line Flush IV PUSH 20 ml PRN PRN Administration after blood draws Thiamine HCl 100 mg 01/20/25 09:00 01/29/25 08:18 Thiamine Hcl 200 Mg/2 Ml Vial IV PUSH 100 mg QAM MEENA Administration Radiology Results: ITS Impressions Abdomen X-Ray 01/20/25 05:42 Impression: NG tube in satisfactory position. Small left pleural effusion. Chest/Abdomen/Pelvis CT 01/20/25 05:48 Impression: Moderate to large left pleural effusion with extensive left lower lobe atelectasis. Small right pleural effusion. 9 mm spiculated nodule in the right lower lobe, as detailed above, indeterminate. CT scan in 3 months advised. Consider PET/CT or attempted tissue sampling as indicated. Moderate emphysema. No definite evidence for GI bleed, but evaluation is limited without IV contrast and with oral contrast on board. Consider follow-up CT angiogram of the bowel to further evaluate for GI bleed, as indicated. Moderate abdominopelvic ascites. T12 compression fracture, somewhat age indeterminate, but new since 06/20/2024. Fractures of the right anterior acetabulum at the junction of the right superior pubic ramus and of the right inferior pubic ramus, acute to subacute in nature. Head CT 01/20/25 06:13 Impression: No intracranial hemorrhage, mass, or acute infarct. Atrophy and chronic white matter changes, as above. Wrist X-Ray 01/20/25 06:13 Impression: Probable chronic fracture deformities of the distal radius and ulnar styloid process, as detailed above. No definite acute fracture. Renal Ultrasound 01/21/25 08:42 IMPRESSION: 1. Medical renal disease. 2. Mild bilateral hydronephrosis. No nephrolithiasis. Hip/Pelvis X-Ray 01/24/25 11:12 Impression: 1: Healing right acetabular and inferior pubic rami fractures with callus formation. Chest X-Ray 01/28/25 05:45 Impression: 1: Retrocardiac airspace consolidation which may represent atelectasis or pneumonia. No significant change. Modified Barium Swallow 01/29/25 13:33 IMPRESSION: Pharyngeal dysphagia with laryngeal penetration and aspiration with thin liquids. Please correlate with speech pathologist findings and specific feeding recommendations. Labs Labs: Laboratory Results - last 24 hr 01/22/25 01/28/25 01/28/25 11:10 17:03 17:34 WBC RBC Hgb Hct MCV MCH MCHC RDW Plt Count MPV Immature Gran % (Auto) Neut % (Auto) Lymph % (Auto) [place] % (Auto) Eos % (Auto) Baso % (Auto) Lymph # (Auto) [place] # (Auto) Eos # (Auto) Baso # (Auto) Abs Immat Gran (auto) Absolute Neuts (auto) Absolute Nucleated RBC Nucleated RBC % % Immature Plt Fraction Sodium Potassium Chloride Carbon Dioxide Anion Gap BUN Creatinine Estim Creat Clear Calc Estimated GFR Glucose POC Capillary Glucose 105 100 Calcium Phosphorus Magnesium Total Bilirubin AST ALT Alkaline Phosphatase Total Protein Albumin Cryoglobulin Qualit Comment 01/29/25 01/29/25 01/29/25 00:31 04:58 11:44 WBC 6.1 RBC 3.56 L Hgb 10.7 L Hct 35.7 L MCV 100.3 H MCH 30.1 MCHC 30.0 L RDW 22.7 H Plt Count 32 L MPV 11.6 H Immature Gran % (Auto) 0.8 H Neut % (Auto) 65.7 Lymph % (Auto) 20.3 [place] % (Auto) 10.6 H Eos % (Auto) 2.1 Baso % (Auto) 0.5 Lymph # (Auto) 1.24 [place] # (Auto) 0.7 H Eos # (Auto) 0.1 Baso # (Auto) 0.0 Abs Immat Gran (auto) 0.05 H Absolute Neuts (auto) 4.0 Absolute Nucleated RBC 0.000 Nucleated RBC % 0.0 % Immature Plt Fraction 3.5 Sodium 147 H Potassium 4.3 Chloride 112 H Carbon Dioxide 28 Anion Gap 7 BUN 63 H Creatinine 2.06 H Estim Creat Clear Calc 16 Estimated GFR 25 L Glucose 82 POC Capillary Glucose 97 74 Calcium 8.3 L Phosphorus 3.5 Magnesium 1.9 Total Bilirubin 1.3 AST 28 ALT 25 Alkaline Phosphatase 72 Total Protein 5.5 L Albumin 3.1 L Cryoglobulin Qualit 01/29/25 01/29/25 12:01 12:23 WBC RBC Hgb Hct MCV MCH MCHC RDW Plt Count MPV Immature Gran % (Auto) Neut % (Auto) Lymph % (Auto) [place] % (Auto) Eos % (Auto) Baso % (Auto) Lymph # (Auto) [place] # (Auto) Eos # (Auto) Baso # (Auto) Abs Immat Gran (auto) Absolute Neuts (auto) Absolute Nucleated RBC Nucleated RBC % % Immature Plt Fraction Sodium Potassium Chloride Carbon Dioxide Anion Gap BUN Creatinine Estim Creat Clear Calc Estimated GFR Glucose POC Capillary Glucose 138 H 103 Calcium Phosphorus Magnesium Total Bilirubin AST ALT Alkaline Phosphatase Total Protein Albumin Cryoglobulin Qualit Quality VTE Prophylaxis VTE prophylaxis: mechanical ordered
--- NOTE | 2025-01-29 14:13 | P.CONPL_ITS ---
Assessment and Plan Assessment and plan (1) COPD (chronic obstructive pulmonary disease): Code(s): J44.9 - Chronic obstructive pulmonary disease, unspecified Status: Acute Assessment and Plan: patient carries a history of tobacco use, she tells me she was diagnosed with COPD approximately 10 years ago with PFTs. I do not have the PFT results. CT scan of the chest on 01/20/2025 demonstrates moderate apical predominant centrilobular emphysema and mild apical predominant paraseptal emphysema. She cannot tell me if she has been on inhalers previously. home medicine list does not list inhalers. on admission white blood cell count 11.2, eosinophils 0%. 01/29/2025: Patient is awake but encephalopathic, she is in no respiratory distress. Patient is on room air with saturations 95%. She is afebrile with a last fever of 01/27 at 6:00 a.m.. Her white blood cell count is 6.1, creatinine is 2.06. Yesterday she diuresed 120 mL and cumulative she is -6 mL since admission. Her weight today is 39.7 kg. Chest x-ray yesterday demonstrated ET tube with hyperinflation and retrocardiac infiltrate. the patient empirically was placed on noninvasive ventilation post extubation and I agree with that for tonight as long as she tolerates this. I placed her on the noninvasive ventilator with the AVAPS mode and adjusted the settings to comfort resulting in a rate of 14, tidal volume 450, EPAP 5, minimum inspiratory pressure 6, maximal inspiratory pressure 20, inspiratory time 1.0, rise of 5 which is the slowest and 28% FiO2. Plan: I do not see any evidence of current COPD exacerbation, pneumonia, bronchitis. Agree with [employer]ano[employer] Q.6 hours. No indication for inhaled steroids or systemic steroids at this time. Goal saturation 90-94%. Currently she is on room air. It is unclear if the patient has chronic hypercarbic respiratory failure. Would continue empiric noninvasive ventilation with the AVAPS mode as above 1 more night as long as she tolerates this well. If she is struggling to tolerate this I would not press the issue and just place her on room air or nasal cannula keep saturations 90-94%. would try her without noninvasive ventilation the night of 01/30/2025 and when she is off the noninvasive ventilator for 24 hours will check a blood gas to assess for chronic hypercarbic respiratory failure. will order echocardiogram to assess LV function, RV function, and pulmonary pressures. Inpatient pulmonary consult services will resume on 02/01/2025, call with questions. Discussed with Dr. Thomas. (2) Cavitary lesion of lung: Code(s): J98.4 - Other disorders of lung Status: Acute Assessment and Plan: Patient has a 9 mm spiculated nodule with a cavity in the right lower lobe and was treated with Zosyn for 7 days which ended 01/26/25. plan: I will obtain a CT scan of the chest to reassess this cavity. Would favor a more prolonged course of antibiotics if the cavity exist such as Augmentin for another 14 days with follow-up CT scan in about 6-8 weeks. History of Present Illness History of Present Illness Consult date: 01/29/25 Chief complaint: Left Wrist Fx , t12 Comp fx, R Acet Fx Narrative: 01/29/2025: This is a new pulmonary consult for COPD 59-year-old with a history of alcoholism, cirrhosis, CKD with creatinine 1.49 on 06/20/2024, tobacco use, hepatitis-C, chronic encephalopathy, malnutrition, tobacco use and COPD. Patient is currently transferred out of the ICU and she knows her name and the year but not the month and does not know the hospital or the president and the and I did states. Patient had a CT scan of the abdomen on 06/10/2024 which showed moderate bilateral pleural effusions. 01/20/2025: patient presented to the emergency department with hematemesis since 01/19/2025. She was not protecting her airway in the emergency department and was intubated. Her blood pressure was 109/84, heart rate 86, respirations 16. White blood cell count 11.2 with eosinophils 0, creatinine 3.43, BUN 109, CRP 0.9, procalcitonin 1.2, lactic acid 2.0. Patient had a CT scan chest abdomen and pelvis and in comparison to 06/20/2024 the right pleural effusion had decreased, the left effusion was unchanged and moderate with left lower lobe atelectasis, There was a 9 mm cavity in the right upper lobe. there was moderate apical predominant centrilobular emphysema and mild apical predominant paraseptal emphysema. She was started on Protonix, octreotide, vancomycin and Rocephin empirically. EGD demonstrated reflux erosive esophagitis. Antibiotics were changed to Zosyn. Of note patient had a fractured right acetabulum, right inferior pubic rami fracture, mild abdominal pelvic ascites and later was found to have a fractured left wrist. Orthopedics was consulted and no surgical intervention was performed or planned. 01/24/2025 patient was extubated but had increased work of breathing and was reintubated 1 hour later. 01/26/2025 Zosyn was discontinued. 01/28/2025: Patient was extubated after successful spontaneous breathing trial on CPAP 5 PSV 8 with a blood gas of 7.49/36/93. Patient was placed on noninvasive ventilation with the AVAPS mode overnight. 01/29/2025: Patient is awake but encephalopathic, she is in no respiratory distress. Patient is on room air with saturations 95%. She is afebrile with a last fever of 827 at 6:00 a.m.. Her white blood cell count is 6.1, creatinine is 2.06. Yesterday she diuresed 120 mL and cumulative she is -6 mL since admission. Her weight today is 39.7 kg. Chest x-ray yesterday demonstrated ET tube with hyperinflation and retrocardiac infiltrate. the patient empirically was placed on noninvasive ventilation post extubation and I agree with that for tonight as long as she tolerates this. I placed her on the noninvasive ventilator with the AVAPS mode and adjusted the settings to comfort resulting in a rate of 14, tidal volume 450, EPAP 5, minimum inspiratory pressure 6, maximal inspiratory pressure 20, inspiratory time 1.0, rise of 5 which is the slowest and 28% FiO2. DATA: 01/29/25: FINDINGS: Oral stage: Adequate function. Pharyngeal stage: Reduced laryngeal elevation. There is laryngeal penetration with aspiration with thin liquids.. Cervical/esophageal stage: Adequate function. IMPRESSION: Pharyngeal dysphagia with laryngeal penetration and aspiration with thin liquids. Impression: Moderate/severe dysphagia characterized by the instance of silent aspiration of thin liquids. Recommendation: pureed diet level 4 and mildly thick liquids level 2. ST to treat and reassess pt's ability to manage solids if dentures are found. 01/28/25: XR chest 1V portable 01/28/2025 05:39 Indication: Respiratory failure Procedure: AP portable chest Comparison: Comparison to multiple prior studies sequentially, with oldest reviewed study dated 01/24/2025. Findings: Cardiomegaly. Persistent retrocardiac airspace consolidation. No significant effusion. No pneumothorax. Endotracheal tube tip 3.2 cm above the aylin. Right IJ central line tip in the SVC. Impression: 1: Retrocardiac airspace consolidation which may represent atelectasis or pneumonia. No significant change. 01/20/2025: Clinical Indication: GI bleed CT Scan of the Chest, Abdomen, and Pelvis without Contrast: Technique: Contiguous sections were acquired throughout the chest, abdomen, and pelvis without IV contrast administration. Dose reduction technique was used on this scan by utilizing automated exposure control and iterative reconstruction technique. The dose-length product (DLP) was 267.47 mGy-cm. Comparison: 06/20/2024 Findings: Endotracheal tube and NG tube are in place. There is no evidence of any significant mediastinal, hilar or axillary lymphadenopathy. The mediastinal soft tissues appear normal. No pericardial effusion. Moderate to large left pleural effusion present. There is extensive left lower lobe atelectasis. Small right pleural effusion present. There is a 9 mm spiculated nodular opacity with central cavitation in the right lower lobe (axial image 85). Moderate emphysema present. There is right apical scarring. The liver, spleen, pancreas, gallbladder, adrenals and kidneys are within normal limits. No evidence of aortic aneurysm. No lymphadenopathy. There is probable oral contrast on board. No definite evidence for GI bleed identified. No bowel obstruction or bowel wall thickening evident. Mclean catheter in place. No pelvic mass seen. Moderate abdominopelvic ascites present. Moderate T12 compression fracture deformity is present, new from prior exam. There is acute fracture of the anterior acetabulum at the junction with the right superior pubic ramus. There is additional fracture inferior pubic ramus. These fractures are acute to subacute in appearance. Impression: Moderate to large left pleural effusion with extensive left lower lobe atelectasis. Small right pleural effusion. 9 mm spiculated nodule in the right lower lobe, as detailed above, indeterminate. CT scan in 3 months advised. Consider PET/CT or attempted tissue sampling as indicated. Moderate emphysema. No definite evidence for GI bleed, but evaluation is limited without IV contrast and with oral contrast on board. Consider follow-up CT angiogram of the bowel to further evaluate for GI bleed, as indicated. Moderate abdominopelvic ascites. T12 compression fracture, somewhat age indeterminate, but new since 06/20/2024. Fractures of the right anterior acetabulum at the junction of the right superior pubic ramus and of the right inferior pubic ramus, acute to subacute in nature. Review of Systems 2 Review of Systems: ROS unobtainable: Yes unobtainable due to mental status PMFSH Past Medical History Medical History Acute on chronic anemia Erosive esophagitis Elevated liver enzymes CKD (chronic kidney disease) stage 4, GFR 15-29 ml/min Severe protein-calorie malnutrition Alcoholic cirrhosis of liver with ascites Alcohol abuse Surgical History Surgical History (Updated 01/20/25 @ 06:43 by Naila Torres DO) Status post open reduction with internal fixation of fracture Right femur Family History Family History (Updated 01/20/25 @ 06:43 by Naila Torres DO) Other Unknown family medical history Social History Social History (Updated 01/20/25 @ 06:44 by Naila Torres DO) Social History: Patient has a history of chronic alcohol abuse. Her urine drug screen was also positive for amphetamines. Patient has dark tobacco staining to her fingers. Smoking packs per day: 1 Smoking cigarettes per day: 20.0 Years smoked: 40 Smoking pack-years: 40.00 Smoking status: Current every day smoker Tobacco type: cigarettes Alcohol intake: current Substance use: unknown Spiritual care concerns: No Meds Home Medications and Allergies Home Medications ?Medication ?Instructions ?Recorded ?Confirmed ?Type clonazepam 1 mg tablet 1 mg PO Q8H PRN anxiety 01/0201/20/25 History diazepam 10 mg tablet 10 mg PO DAILY 01/20/2501/02 History Allergies Allergy/AdvReac Type Severity Reaction Status Date / Time codeine Allergy Mild Verified 11/23/09 20:50 gabapentin Allergy Mild Verified 11/23/09 20:50 Penicillins Allergy Mild Verified 01/20/25 07:51 Vital Signs Vital Signs - 24 hr 01/28/25 16:00 01/28/25 16:00 01/28/25 16:00 Temperature Pulse Rate 80 79 Respiratory Rate 21 H Blood Pressure 148/102 H Pulse Oximetry 100 98 Oxygen Delivery BiPAP Oxygen Flow Rate Fraction of Inspired Oxygen 01/28/25 16:37 01/28/25 17:18 01/28/25 17:30 Temperature 36.0 C L Pulse Rate 78 Respiratory Rate 14 Blood Pressure 161/105 H Pulse Oximetry 99 Oxygen Delivery BiPAP Oxygen Flow Rate Fraction of Inspired Oxygen 01/28/25 17:42 01/28/25 18:00 01/28/25 18:00 Temperature 35.9 C L Pulse Rate 82 71 73 Respiratory Rate 21 H Blood Pressure 139/97 H Pulse Oximetry 100 Oxygen Delivery Oxygen Flow Rate Fraction of Inspired Oxygen 01/28/25 20:00 01/28/25 20:00 01/28/25 20:00 Temperature 36.1 C L Pulse Rate 75 73 Respiratory Rate 17 Blood Pressure 162/101 H Pulse Oximetry 100 100 Oxygen Delivery BiPAP Oxygen Flow Rate Fraction of Inspired Oxygen 30 01/28/25 21:00 01/28/25 21:06 01/28/25 21:15 Temperature Pulse Rate 76 79 71 Respiratory Rate 18 18 Blood Pressure Pulse Oximetry 100 Oxygen Delivery BiPAP Oxygen Flow Rate Fraction of Inspired Oxygen 01/28/25 21:22 01/28/25 22:00 01/28/25 22:00 Temperature Pulse Rate 83 73 73 Respiratory Rate 18 19 Blood Pressure 155/97 H Pulse Oximetry 100 Oxygen Delivery Oxygen Flow Rate Fraction of Inspired Oxygen 01/28/25 23:39 01/29/25 00:00 01/29/25 00:00 Temperature 36.0 C L Pulse Rate 79 78 Respiratory Rate 19 19 Blood Pressure 173/11 H Pulse Oximetry 100 100 100 Oxygen Delivery BiPAP BiPAP Oxygen Flow Rate Fraction of Inspired Oxygen 30 01/29/25 00:00 01/29/25 02:00 01/29/25 02:00 Temperature Pulse Rate 76 80 80 Respiratory Rate 22 H Blood Pressure 167/103 H Pulse Oximetry 99 Oxygen Delivery Oxygen Flow Rate Fraction of Inspired Oxygen 01/29/25 02:06 01/29/25 02:55 01/29/25 02:56 Temperature Pulse Rate 80 74 74 Respiratory Rate 19 19 Blood Pressure Pulse Oximetry 100 Oxygen Delivery BiPAP Oxygen Flow Rate Fraction of Inspired Oxygen 01/29/25 03:04 01/29/25 04:00 01/29/25 04:00 Temperature Pulse Rate 76 80 Respiratory Rate 19 Blood Pressure Pulse Oximetry 100 Oxygen Delivery BiPAP Oxygen Flow Rate Fraction of Inspired Oxygen 30 01/29/25 04:00 01/29/25 05:33 01/29/25 06:00 Temperature 36.1 C L Pulse Rate 78 84 86 Respiratory Rate 21 H 19 Blood Pressure 157/99 H Pulse Oximetry 98 98 Oxygen Delivery BiPAP Oxygen Flow Rate Fraction of Inspired Oxygen 01/29/25 06:00 01/29/25 06:56 01/29/25 06:59 Temperature Pulse Rate 86 82 82 Respiratory Rate 24 H 20 20 Blood Pressure 157/103 H Pulse Oximetry 95 98 Oxygen Delivery BiPAP Oxygen Flow Rate Fraction of Inspired Oxygen 01/29/25 07:36 01/29/25 07:57 01/29/25 08:00 Temperature 36.3 C L Pulse Rate 87 Respiratory Rate Blood Pressure Pulse Oximetry 98 Oxygen Delivery BiPAP Oxygen Flow Rate Fraction of Inspired Oxygen 30 01/29/25 08:04 01/29/25 09:27 01/29/25 10:00 Temperature 36.5 C Pulse Rate 88 87 82 Respiratory Rate 27 H 24 H Blood Pressure 167/105 H 158/99 H Pulse Oximetry 100 99 Oxygen Delivery Oxygen Flow Rate Fraction of Inspired Oxygen 01/29/25 10:00 01/29/25 12:00 01/29/25 12:00 Temperature 37.0 C Pulse Rate 83 85 Respiratory Rate 28 H Blood Pressure 151/89 H Pulse Oximetry 96 96 Oxygen Delivery High Flow Nasal Cannula Oxygen Flow Rate 2 Fraction of Inspired Oxygen 01/29/25 13:18 01/29/25 13:48 01/29/25 13:48 Temperature 36.7 C Pulse Rate 89 92 92 Respiratory Rate 23 H 20 20 Blood Pressure 151/90 H Pulse Oximetry 97 95 Oxygen Delivery High Flow Nasal Cannula Oxygen Flow Rate 1 Fraction of Inspired Oxygen Exam 2 Const: General: cooperative, comfortable and no acute distress O rientation/consciousness: oriented to person, oriented to place and oriented to time Other: Cachectic HENMT: Head: normal to inspection Ears: hearing grossly normal bilaterally Eyes: General: appearance normal, both eyes and all related structures Neck: Neck: normal visual inspection Chest: Chest palpation & inspection: normal inspection of the chest Resp: Effort & Inspection: normal respiratory effort and able to speak in complete sentences Auscultation: no crackles, no rales, no rhonchi, no wheezes and diminished lung sounds Other: decreased breath sounds throughout Cardio: Jugular venous distension: no JVD GI: Inspection: normal to inspection GI Palp: No abdominal tenderness Skin: General skin exam: normal color Neuro: General: oriented to person, oriented to place and oriented to time Extrem: General: normal to inspection Other: no edema Psych: Appearance: grossly normal Results Laboratory Findings 01/29/25 04:58 01/29/25 04:58 ABG, PT/INR, D-dimer: ABG ABG pH 7.492 (7.350-7.450) H 01/28/25 12:24 ABG pCO2 36.2 mmHg (35.0-45.0) 01/28/25 12:24 ABG pO2 92.7 mmHg (80.0-100.0) 01/28/25 12:24 ABG O2 Saturation 97.6 % (95.0-100.0) 01/28/25 12:24 PT/INR, D-dimer PT 14.8 Seconds (11.1-14.7) H 01/26/25 08:24 INR 1.1 01/26/25 08:24 D-Dimer 2.62 ug/mL (<0.48) H 01/26/25 08:24 Abnormal lab findings: Abnormal Labs 01/20/25 01/20/25 01/20/25 00:30 01:54 02:00 WBC 11.2 H RBC 2.56 L Hgb 7.0 L Hct 22.8 L MCV MCHC 30.7 L RDW 16.2 H Plt Count 105 L D MPV 10.9 H Immature Gran % (Auto) Neut % (Auto) Lymph % (Auto) Emanuel % (Auto) Baso % (Auto) Lymph # (Auto) Emanuel # (Auto) Abs Immat Gran (auto) Absolute Neuts (auto) Absolute Nucleated RBC Neutrophils % (Manual) 89 H Lymphocytes % (Manual) 6.0 L Nucleated RBC % Abs Neuts (Manual) 10.08 H Abs Lymphs (Manual) 0.67 L PT 16.9 H APTT Fibrinogen D-Dimer ABG pH ABG pCO2 ABG pO2 ABG HCO3 ABG O2 Saturation ABG O2 Content Oxyhemoglobin Reduced Hemoglobin Total Hemoglobin Sodium 128 L Potassium 2.6 L* Chloride 91 L Carbon Dioxide BUN 109 H* D Creatinine 3.43 H Estimated GFR 14 L Glucose 116 H POC Capillary Glucose Lactic Acid 2.6 H Calcium 7.2 L Phosphorus Magnesium Iron 32 L % Saturation 10 L Total Bilirubin 1.8 H AST 56 H ALT 123 H Ammonia Total Creatine Kinase Total Protein 5.0 L Albumin 2.7 L Urine Protein Leukocyte Esterase Rfl Protein/Creat Ratio 2 Nasal MRSA (PCR) Random Vancomycin Ur Amphetamine Screen Positive A U Benzodiazepines Scrn Positive A Crossmatch See Detail 01/20/25 01/20/25 01/20/25 03:30 05:17 08:33 WBC RBC 3.12 L Hgb 9.1 L Hct 27.1 L MCV MCHC RDW Plt Count 59 L MPV Immature Gran % (Auto) 1.1 H Neut % (Auto) 81.3 H Lymph % (Auto) 10.5 L Emanuel % (Auto) Baso % (Auto) 0.1 L Lymph # (Auto) Emanuel # (Auto) Abs Immat Gran (auto) 0.10 H Absolute Neuts (auto) 7.3 H Absolute Nucleated RBC 0.130 H Neutrophils % (Manual) Lymphocytes % (Manual) Nucleated RBC % 1.4 H Abs Neuts (Manual) Abs Lymphs (Manual) PT 17.2 H APTT Fibrinogen 111 L D-Dimer 2.19 H ABG pH 7.561 H* ABG pCO2 26.2 L ABG pO2 529.5 H ABG HCO3 ABG O2 Saturation ABG O2 Content 15.5 L Oxyhemoglobin Reduced Hemoglobin Total Hemoglobin 10.0 L Sodium 127 L Potassium 2.8 L* Chloride 95 L Carbon Dioxide BUN 108 H* Creatinine 2.90 H Estimated GFR 17 L Glucose POC Capillary Glucose Lactic Acid Calcium 6.9 L Phosphorus Magnesium Iron % Saturation Total Bilirubin 3.2 H AST 43 H ALT 95 H Ammonia < 9 L Total Creatine Kinase Total Protein 4.0 L Albumin 2.1 L Urine Protein 2+ H Leukocyte Esterase Rfl 1+ H Protein/Creat Ratio 2 Nasal MRSA (PCR) Detected A* Random Vancomycin Ur Amphetamine Screen U Benzodiazepines Scrn Crossmatch 01/20/25 01/20/25 01/20/25 09:23 14:56 15:11 WBC RBC 2.11 L Hgb 6.1 L* Hct 18.6 L* MCV MCHC RDW 15.0 H Plt Count 126 L MPV Immature Gran % (Auto) Neut % (Auto) Lymph % (Auto) Emanuel % (Auto) Baso % (Auto) Lymph # (Auto) Emanuel # (Auto) Abs Immat Gran (auto) Absolute Neuts (auto) Absolute Nucleated RBC Neutrophils % (Manual) Lymphocytes % (Manual) Nucleated RBC % Abs Neuts (Manual) Abs Lymphs (Manual) PT 17.8 H APTT 51.5 H Fibrinogen D-Dimer 2.19 H ABG pH ABG pCO2 ABG pO2 < 27.0 L* ABG HCO3 ABG O2 Saturation ABG O2 Content Oxyhemoglobin 36.7 L* Reduced Hemoglobin Total Hemoglobin 9.4 L Sodium 133 L Potassium 2.9 L Chloride Carbon Dioxide BUN 96 H D Creatinine 2.63 H Estimated GFR 19 L Glucose POC Capillary Glucose Lactic Acid Calcium 7.5 L Phosphorus Magnesium Iron % Saturation Total Bilirubin AST ALT Ammonia Total Creatine Kinase Total Protein Albumin Urine Protein Leukocyte Esterase Rfl Protein/Creat Ratio 2 1.92 H Nasal MRSA (PCR) Random Vancomycin Ur Amphetamine Screen U Benzodiazepines Scrn Crossmatch 01/21/25 01/21/25 01/21/25 01:08 03:44 05:31 WBC RBC Hgb Hct MCV MCHC RDW Plt Count MPV Immature Gran % (Auto) Neut % (Auto) Lymph % (Auto) Emanuel % (Auto) Baso % (Auto) Lymph # (Auto) Emanuel # (Auto) Abs Immat Gran (auto) Absolute Neuts (auto) Absolute Nucleated RBC Neutrophils % (Manual) Lymphocytes % (Manual) Nucleated RBC % Abs Neuts (Manual) Abs Lymphs (Manual) PT APTT Fibrinogen D-Dimer ABG pH ABG pCO2 ABG pO2 72.2 L ABG HCO3 ABG O2 Saturation 94.3 L ABG O2 Content 9.0 L Oxyhemoglobin Reduced Hemoglobin 5.7 H Total Hemoglobin 6.8 L* Sodium 136 L Potassium Chloride Carbon Dioxide BUN 88 H Creatinine 2.74 H Estimated GFR 18 L Glucose POC Capillary Glucose Lactic Acid Calcium 8.3 L Phosphorus Magnesium Iron % Saturation Total Bilirubin AST ALT Ammonia Total Creatine Kinase Total Protein Albumin Urine Protein Leukocyte Esterase Rfl Protein/Creat Ratio 2 Nasal MRSA (PCR) Random Vancomycin < 5.0 L Ur Amphetamine Screen U Benzodiazepines Scrn Crossmatch 01/21/25 01/21/25 01/21/25 06:36 12:30 18:50 WBC RBC 2.24 L 3.14 L 3.25 L Hgb 6.3 L* 9.1 L 9.5 L Hct 20.2 L* 28.3 L 29.4 L MCV MCHC 31.2 L RDW 16.4 H 15.9 H 16.0 H Plt Count 70 L 67 L 61 L MPV Immature Gran % (Auto) 0.8 H Neut % (Auto) 84.1 H Lymph % (Auto) 7.6 L Emanuel % (Auto) Baso % (Auto) 0.0 L Lymph # (Auto) 0.68 L Emanuel # (Auto) Abs Immat Gran (auto) 0.07 H Absolute Neuts (auto) 7.5 H Absolute Nucleated RBC 0.020 H Neutrophils % (Manual) Lymphocytes % (Manual) Nucleated RBC % Abs Neuts (Manual) Abs Lymphs (Manual) PT APTT Fibrinogen D-Dimer ABG pH ABG pCO2 ABG pO2 ABG HCO3 ABG O2 Saturation ABG O2 Content Oxyhemoglobin Reduced Hemoglobin Total Hemoglobin Sodium Potassium Chloride Carbon Dioxide BUN 86 H Creatinine 2.64 H Estimated GFR 18 L Glucose POC Capillary Glucose Lactic Acid Calcium 8.1 L Phosphorus Magnesium Iron % Saturation Total Bilirubin 2.3 H AST ALT 41 H Ammonia Total Creatine Kinase < 20 L Total Protein 4.8 L Albumin 2.9 L Urine Protein Leukocyte Esterase Rfl Protein/Creat Ratio 2 Nasal MRSA (PCR) Random Vancomycin Ur Amphetamine Screen U Benzodiazepines Scrn Crossmatch 01/22/25 01/22/25 01/22/25 04:31 05:06 09:13 WBC RBC 3.47 L Hgb 10.1 L Hct 31.7 L MCV MCHC 31.9 L RDW 16.5 H Plt Count 61 L MPV Immature Gran % (Auto) 1.1 H Neut % (Auto) 76.5 H Lymph % (Auto) 11.6 L Emanuel % (Auto) 8.9 H Baso % (Auto) 0.1 L Lymph # (Auto) Emanuel # (Auto) 0.9 H Abs Immat Gran (auto) 0.11 H Absolute Neuts (auto) 7.7 H Absolute Nucleated RBC 0.030 H Neutrophils % (Manual) Lymphocytes % (Manual) Nucleated RBC % 0.3 H Abs Neuts (Manual) Abs Lymphs (Manual) PT APTT Fibrinogen D-Dimer ABG pH 7.341 L ABG pCO2 45.9 H ABG pO2 78.0 L ABG HCO3 ABG O2 Saturation 94.8 L ABG O2 Content 14.9 L Oxyhemoglobin Reduced Hemoglobin Total Hemoglobin 11.2 L Sodium Potassium Chloride Carbon Dioxide BUN 82 H Creatinine 2.83 H Estimated GFR 17 L Glucose POC Capillary Glucose 107 H Lactic Acid Calcium 8.1 L Phosphorus Magnesium Iron % Saturation Total Bilirubin 1.9 H AST ALT 37 H Ammonia Total Creatine Kinase Total Protein 5.2 L Albumin 3.3 L Urine Protein Leukocyte Esterase Rfl Protein/Creat Ratio 2 Nasal MRSA (PCR) Random Vancomycin Ur Amphetamine Screen U Benzodiazepines Scrn Crossmatch 01/22/25 01/22/25 01/22/25 12:24 12:46 17:15 WBC RBC 3.42 L Hgb 9.9 L Hct 31.1 L MCV MCHC 31.8 L RDW 16.7 H Plt Count 55 L MPV 10.5 H Immature Gran % (Auto) Neut % (Auto) Lymph % (Auto) Emanuel % (Auto) Baso % (Auto) Lymph # (Auto) Emanuel # (Auto) Abs Immat Gran (auto) Absolute Neuts (auto) Absolute Nucleated RBC Neutrophils % (Manual) Lymphocytes % (Manual) Nucleated RBC % Abs Neuts (Manual) Abs Lymphs (Manual) PT APTT Fibrinogen D-Dimer ABG pH ABG pCO2 ABG pO2 ABG HCO3 ABG O2 Saturation ABG O2 Content Oxyhemoglobin Reduced Hemoglobin Total Hemoglobin Sodium Potassium Chloride Carbon Dioxide BUN Creatinine Estimated GFR Glucose POC Capillary Glucose 114 H 118 H Lactic Acid Calcium Phosphorus Magnesium Iron % Saturation Total Bilirubin AST ALT Ammonia Total Creatine Kinase Total Protein Albumin Urine Protein Leukocyte Esterase Rfl Protein/Creat Ratio 2 Nasal MRSA (PCR) Random Vancomycin Ur Amphetamine Screen U Benzodiazepines Scrn Crossmatch 01/22/25 01/23/25 01/23/25 19:55 00:12 01:58 WBC RBC 3.54 L 3.59 L Hgb 10.2 L 10.3 L Hct 32.3 L 32.6 L MCV MCHC 31.6 L 31.6 L RDW 16.6 H 16.7 H Plt Count 52 L 51 L MPV 11.4 H Immature Gran % (Auto) Neut % (Auto) Lymph % (Auto) Emanuel % (Auto) Baso % (Auto) Lymph # (Auto) Emanuel # (Auto) Abs Immat Gran (auto) Absolute Neuts (auto) Absolute Nucleated RBC Neutrophils % (Manual) Lymphocytes % (Manual) Nucleated RBC % Abs Neuts (Manual) Abs Lymphs (Manual) PT APTT Fibrinogen D-Dimer ABG pH ABG pCO2 ABG pO2 ABG HCO3 ABG O2 Saturation ABG O2 Content Oxyhemoglobin Reduced Hemoglobin Total Hemoglobin Sodium Potassium 2.9 L Chloride Carbon Dioxide BUN 81 H Creatinine 2.79 H Estimated GFR 17 L Glucose POC Capillary Glucose 109 H Lactic Acid Calcium 8.0 L Phosphorus Magnesium Iron % Saturation Total Bilirubin 1.6 H AST ALT Ammonia Total Creatine Kinase Total Protein 5.0 L Albumin 3.0 L Urine Protein Leukocyte Esterase Rfl Protein/Creat Ratio 2 Nasal MRSA (PCR) Random Vancomycin Ur Amphetamine Screen U Benzodiazepines Scrn Crossmatch 01/23/25 01/23/25 01/23/25 04:45 06:06 10:09 WBC RBC Hgb Hct MCV MCHC RDW Plt Count MPV Immature Gran % (Auto) Neut % (Auto) Lymph % (Auto) Emanuel % (Auto) Baso % (Auto) Lymph # (Auto) Emanuel # (Auto) Abs Immat Gran (auto) Absolute Neuts (auto) Absolute Nucleated RBC Neutrophils % (Manual) Lymphocytes % (Manual) Nucleated RBC % Abs Neuts (Manual) Abs Lymphs (Manual) PT APTT Fibrinogen D-Dimer ABG pH ABG pCO2 ABG pO2 51.4 L 74.4 L ABG HCO3 28.4 H 26.8 H ABG O2 Saturation 86.9 L* 94.8 L ABG O2 Content 13.8 L Oxyhemoglobin 84.3 L* Reduced Hemoglobin 14.6 H Total Hemoglobin 11.6 L Sodium Potassium Chloride Carbon Dioxide BUN Creatinine Estimated GFR Glucose POC Capillary Glucose 132 H Lactic Acid Calcium Phosphorus Magnesium Iron % Saturation Total Bilirubin AST ALT Ammonia Total Creatine Kinase Total Protein Albumin Urine Protein Leukocyte Esterase Rfl Protein/Creat Ratio 2 Nasal MRSA (PCR) Random Vancomycin Ur Amphetamine Screen U Benzodiazepines Scrn Crossmatch 01/23/25 01/23/25 01/23/25 11:17 18:14 23:58 WBC RBC Hgb Hct MCV MCHC RDW Plt Count MPV Immature Gran % (Auto) Neut % (Auto) Lymph % (Auto) Emanuel % (Auto) Baso % (Auto) Lymph # (Auto) Emanuel # (Auto) Abs Immat Gran (auto) Absolute Neuts (auto) Absolute Nucleated RBC Neutrophils % (Manual) Lymphocytes % (Manual) Nucleated RBC % Abs Neuts (Manual) Abs Lymphs (Manual) PT APTT Fibrinogen D-Dimer ABG pH ABG pCO2 ABG pO2 ABG HCO3 ABG O2 Saturation ABG O2 Content Oxyhemoglobin Reduced Hemoglobin Total Hemoglobin Sodium Potassium Chloride Carbon Dioxide BUN Creatinine Estimated GFR Glucose POC Capillary Glucose 151 H 147 H 137 H Lactic Acid Calcium Phosphorus Magnesium Iron % Saturation Total Bilirubin AST ALT Ammonia Total Creatine Kinase Total Protein Albumin Urine Protein Leukocyte Esterase Rfl Protein/Creat Ratio 2 Nasal MRSA (PCR) Random Vancomycin Ur Amphetamine Screen U Benzodiazepines Scrn Crossmatch 01/24/25 01/24/25 01/24/25 04:53 05:01 11:20 WBC RBC 3.49 L Hgb 10.2 L Hct 33.0 L MCV MCHC 30.9 L RDW 18.2 H Plt Count 39 L MPV 10.5 H Immature Gran % (Auto) Neut % (Auto) Lymph % (Auto) Emanuel % (Auto) Baso % (Auto) Lymph # (Auto) Emanuel # (Auto) Abs Immat Gran (auto) Absolute Neuts (auto) Absolute Nucleated RBC Neutrophils % (Manual) Lymphocytes % (Manual) Nucleated RBC % Abs Neuts (Manual) Abs Lymphs (Manual) PT APTT Fibrinogen D-Dimer ABG pH 7.524 H* ABG pCO2 33.9 L ABG pO2 76.4 L ABG HCO3 27.3 H ABG O2 Saturation ABG O2 Content 15.6 L Oxyhemoglobin Reduced Hemoglobin Total Hemoglobin 11.6 L Sodium Potassium Chloride Carbon Dioxide BUN 84 H Creatinine 2.40 H Estimated GFR 21 L Glucose 127 H POC Capillary Glucose 124 H Lactic Acid Calcium 7.9 L Phosphorus 1.3 L Magnesium 1.4 L Iron % Saturation Total Bilirubin AST ALT Ammonia Total Creatine Kinase Total Protein 4.9 L Albumin 3.0 L Urine Protein Leukocyte Esterase Rfl Protein/Creat Ratio 2 Nasal MRSA (PCR) Random Vancomycin Ur Amphetamine Screen U Benzodiazepines Scrn Crossmatch 01/24/25 01/25/25 01/25/25 17:08 04:46 05:59 WBC RBC 3.84 L Hgb 11.3 L Hct MCV MCHC 30.5 L RDW 19.2 H Plt Count 42 L MPV 11.4 H Immature Gran % (Auto) Neut % (Auto) Lymph % (Auto) Emanuel % (Auto) Baso % (Auto) Lymph # (Auto) Emanuel # (Auto) Abs Immat Gran (auto) Absolute Neuts (auto) Absolute Nucleated RBC Neutrophils % (Manual) Lymphocytes % (Manual) Nucleated RBC % Abs Neuts (Manual) Abs Lymphs (Manual) PT APTT Fibrinogen D-Dimer ABG pH ABG pCO2 45.8 H ABG pO2 111.7 H ABG HCO3 29.9 H ABG O2 Saturation ABG O2 Content Oxyhemoglobin Reduced Hemoglobin Total Hemoglobin Sodium Potassium Chloride Carbon Dioxide BUN Creatinine Estimated GFR Glucose POC Capillary Glucose 125 H Lactic Acid Calcium Phosphorus Magnesium Iron % Saturation Total Bilirubin AST ALT Ammonia Total Creatine Kinase Total Protein Albumin Urine Protein Leukocyte Esterase Rfl Protein/Creat Ratio 2 Nasal MRSA (PCR) Random Vancomycin Ur Amphetamine Screen U Benzodiazepines Scrn Crossmatch 01/25/25 01/25/25 01/26/25 06:00 17:32 04:42 WBC RBC Hgb Hct MCV MCHC RDW Plt Count MPV Immature Gran % (Auto) Neut % (Auto) Lymph % (Auto) Emanuel % (Auto) Baso % (Auto) Lymph # (Auto) Emanuel # (Auto) Abs Immat Gran (auto) Absolute Neuts (auto) Absolute Nucleated RBC Neutrophils % (Manual) Lymphocytes % (Manual) Nucleated RBC % Abs Neuts (Manual) Abs Lymphs (Manual) PT APTT Fibrinogen D-Dimer ABG pH ABG pCO2 ABG pO2 104.6 H ABG HCO3 29.6 H ABG O2 Saturation ABG O2 Content Oxyhemoglobin Reduced Hemoglobin Total Hemoglobin Sodium 146 H Potassium Chloride Carbon Dioxide 32 H BUN 78 H Creatinine 2.41 H Estimated GFR 20 L Glucose 119 H POC Capillary Glucose 121 H Lactic Acid Calcium 8.2 L Phosphorus < 1.0 L Magnesium Iron % Saturation Total Bilirubin AST ALT Ammonia Total Creatine Kinase Total Protein 5.5 L Albumin 3.2 L Urine Protein Leukocyte Esterase Rfl Protein/Creat Ratio 2 Nasal MRSA (PCR) Random Vancomycin Ur Amphetamine Screen U Benzodiazepines Scrn Crossmatch 01/26/25 01/26/25 01/26/25 05:14 07:33 08:24 WBC RBC 3.81 L 3.88 L Hgb 11.5 L 11.4 L D Hct MCV MCHC 30.6 L 30.2 L RDW 20.2 H 20.1 H Plt Count 43 L 41 L D MPV 12.0 H Immature Gran % (Auto) Neut % (Auto) Lymph % (Auto) Emanuel % (Auto) Baso % (Auto) Lymph # (Auto) Emanuel # (Auto) Abs Immat Gran (auto) Absolute Neuts (auto) Absolute Nucleated RBC Neutrophils % (Manual) Lymphocytes % (Manual) Nucleated RBC % Abs Neuts (Manual) Abs Lymphs (Manual) PT 14.8 H APTT Fibrinogen D-Dimer 2.62 H ABG pH ABG pCO2 ABG pO2 ABG HCO3 ABG O2 Saturation ABG O2 Content Oxyhemoglobin Reduced Hemoglobin Total Hemoglobin Sodium Potassium Chloride 108 H Carbon Dioxide BUN 75 H Creatinine 2.18 H Estimated GFR 23 L Glucose 120 H POC Capillary Glucose 117 H Lactic Acid Calcium 8.0 L Phosphorus 1.3 L Magnesium 1.5 L Iron % Saturation Total Bilirubin AST ALT Ammonia Total Creatine Kinase Total Protein 5.4 L Albumin 3.1 L Urine Protein Leukocyte Esterase Rfl Protein/Creat Ratio 2 Nasal MRSA (PCR) Random Vancomycin Ur Amphetamine Screen U Benzodiazepines Scrn Crossmatch 01/26/25 01/26/25 01/27/25 12:13 18:19 04:49 WBC RBC Hgb Hct MCV MCHC RDW Plt Count MPV Immature Gran % (Auto) Neut % (Auto) Lymph % (Auto) Emanuel % (Auto) Baso % (Auto) Lymph # (Auto) Emanuel # (Auto) Abs Immat Gran (auto) Absolute Neuts (auto) Absolute Nucleated RBC Neutrophils % (Manual) Lymphocytes % (Manual) Nucleated RBC % Abs Neuts (Manual) Abs Lymphs (Manual) PT APTT Fibrinogen D-Dimer ABG pH 7.539 H* ABG pCO2 33.2 L ABG pO2 ABG HCO3 27.7 H ABG O2 Saturation ABG O2 Content Oxyhemoglobin Reduced Hemoglobin Total Hemoglobin 11.8 L Sodium Potassium Chloride Carbon Dioxide BUN Creatinine Estimated GFR Glucose POC Capillary Glucose 114 H 123 H Lactic Acid Calcium Phosphorus Magnesium Iron % Saturation Total Bilirubin AST ALT Ammonia Total Creatine Kinase Total Protein Albumin Urine Protein Leukocyte Esterase Rfl Protein/Creat Ratio 2 Nasal MRSA (PCR) Random Vancomycin Ur Amphetamine Screen U Benzodiazepines Scrn Crossmatch 01/27/25 01/28/25 01/28/25 05:17 05:10 05:43 WBC RBC 3.65 L 3.55 L Hgb 10.9 L 10.5 L Hct 35.4 L 34.5 L MCV MCHC 30.8 L 30.4 L RDW 21.3 H 22.3 H Plt Count 34 L 33 L MPV Immature Gran % (Auto) Neut % (Auto) Lymph % (Auto) Emanuel % (Auto) Baso % (Auto) Lymph # (Auto) Emanuel # (Auto) Abs Immat Gran (auto) Absolute Neuts (auto) Absolute Nucleated RBC Neutrophils % (Manual) Lymphocytes % (Manual) Nucleated RBC % Abs Neuts (Manual) Abs Lymphs (Manual) PT APTT Fibrinogen D-Dimer ABG pH 7.471 H ABG pCO2 ABG pO2 127.4 H ABG HCO3 27.4 H ABG O2 Saturation ABG O2 Content Oxyhemoglobin Reduced Hemoglobin Total Hemoglobin 11.7 L Sodium Potassium 3.2 L Chloride Carbon Dioxide 31 H BUN 73 H 71 H Creatinine 2.20 H 2.00 H Estimated GFR 23 L 25 L Glucose 145 H 127 H POC Capillary Glucose Lactic Acid Calcium 8.1 L 8.0 L Phosphorus 1.4 L Magnesium Iron % Saturation Total Bilirubin AST ALT Ammonia Total Creatine Kinase Total Protein 5.3 L 5.2 L Albumin 3.1 L 3.1 L Urine Protein Leukocyte Esterase Rfl Protein/Creat Ratio 2 Nasal MRSA (PCR) Random Vancomycin Ur Amphetamine Screen U Benzodiazepines Scrn Crossmatch 01/28/25 01/29/25 01/29/25 12:24 04:58 12:01 WBC RBC 3.56 L Hgb 10.7 L Hct 35.7 L MCV 100.3 H MCHC 30.0 L RDW 22.7 H Plt Count 32 L MPV 11.6 H Immature Gran % (Auto) 0.8 H Neut % (Auto) Lymph % (Auto) Emanuel % (Auto) 10.6 H Baso % (Auto) Lymph # (Auto) Emanuel # (Auto) 0.7 H Abs Immat Gran (auto) 0.05 H Absolute Neuts (auto) Absolute Nucleated RBC Neutrophils % (Manual) Lymphocytes % (Manual) Nucleated RBC % Abs Neuts (Manual) Abs Lymphs (Manual) PT APTT Fibrinogen D-Dimer ABG pH 7.492 H ABG pCO2 ABG pO2 ABG HCO3 27.1 H ABG O2 Saturation ABG O2 Content Oxyhemoglobin Reduced Hemoglobin Total Hemoglobin Sodium 147 H Potassium Chloride 112 H Carbon Dioxide BUN 63 H Creatinine 2.06 H Estimated GFR 25 L Glucose POC Capillary Glucose 138 H Lactic Acid Calcium 8.3 L Phosphorus Magnesium Iron % Saturation Total Bilirubin AST ALT Ammonia Total Creatine Kinase Total Protein 5.5 L Albumin 3.1 L Urine Protein Leukocyte Esterase Rfl Protein/Creat Ratio 2 Nasal MRSA (PCR) Random Vancomycin Ur Amphetamine Screen U Benzodiazepines Scrn Crossmatch Diagnostic Findings Additional studies: ITS Impressions Abdomen X-Ray 01/20/25 05:42 Impression: NG tube in satisfactory position. Small left pleural effusion. Chest X-Ray 01/20/25 05:43 Impression: Small left pleural effusion with basilar atelectasis versus pneumonia. Correlate clinically. Support tubes, as above. Chest/Abdomen/Pelvis CT 01/20/25 05:48 Impression: Moderate to large left pleural effusion with extensive left lower lobe atelectasis. Small right pleural effusion. 9 mm spiculated nodule in the right lower lobe, as detailed above, indeterminate. CT scan in 3 months advised. Consider PET/CT or attempted tissue sampling as indicated. Moderate emphysema. No definite evidence for GI bleed, but evaluation is limited without IV contrast and with oral contrast on board. Consider follow-up CT angiogram of the bowel to further evaluate for GI bleed, as indicated. Moderate abdominopelvic ascites. T12 compression fracture, somewhat age indeterminate, but new since 06/20/2024. Fractures of the right anterior acetabulum at the junction of the right superior pubic ramus and of the right inferior pubic ramus, acute to subacute in nature. Chest X-Ray 01/20/25 06:12 Impression: Small left pleural effusion with left basilar atelectasis versus pneumonia. COPD. Support tubes, as above. Head CT 01/20/25 06:13 Impression: No intracranial hemorrhage, mass, or acute infarct. Atrophy and chronic white matter changes, as above. Wrist X-Ray 01/20/25 06:13 Impression: Probable chronic fracture deformities of the distal radius and ulnar styloid process, as detailed above. No definite acute fracture. Chest X-Ray 01/20/25 13:08 IMPRESSION: Bilateral airspace opacities and interstitial thickening. Small right pleural effusion. Findings can represent pneumonia in appropriate clinical settings. Clinical correlation is recommended. Short-term follow-up chest radiograph is recommended after appropriate clinical therapy to document stability and/or resolution. Chest X-Ray 01/21/25 06:09 Impression: Small left pleural effusion with left basilar atelectasis versus pneumonia. Probable mild central pulmonary edema. Support tubes, as above. Renal Ultrasound 01/21/25 08:42 IMPRESSION: 1. Medical renal disease. 2. Mild bilateral hydronephrosis. No nephrolithiasis. Chest X-Ray 01/22/25 05:49 Impression: Small left pleural effusion with left lower lobe atelectasis or pneumonia. Worsening central airspace haziness in the lungs, compatible with mild central pulmonary edema. Support tubes, as above. Chest X-Ray 01/23/25 08:11 Impression: 1: Borderline heart size with pulmonary edema. No significant change. Chest X-Ray 01/24/25 07:32 Impression: 1: Stable mild interstitial edema with small left pleural effusion. Chest X-Ray 01/24/25 10:07 Impression: 1: Retrocardiac consolidation which may represent atelectasis and/or pneumonia. 2: Nodular opacity overlying the right mid thorax, not definitely seen on prior studies, most likely prominent nipple shadow. Recommend attention to this on subsequent examinations. Retrocardiac consolidation. Hip/Pelvis X-Ray 01/24/25 11:12 Impression: 1: Healing right acetabular and inferior pubic rami fractures with callus formation. Chest X-Ray 01/25/25 07:16 Impression: 1: Borderline heart size with mild interstitial edema. 2: Retrocardiac opacification, most likely atelectasis. Chest X-Ray 01/26/25 07:05 Impression: 1: Stable retrocardiac opacification most likely atelectasis. Superimposed pneumonia not excluded. Chest X-Ray 01/27/25 05:49 Impression: 1: Bilateral infiltrates may represent a combination of edema, pneumonia and/or atelectasis. Chest X-Ray 01/28/25 05:45 Impression: 1: Retrocardiac airspace consolidation which may represent atelectasis or pneumonia. No significant change. Modified Barium Swallow 01/29/25 13:33 IMPRESSION: Pharyngeal dysphagia with laryngeal penetration and aspiration with thin liquids. Please correlate with speech pathologist findings and specific feeding recommendations.
--- NOTE | 2025-01-29 14:20 | ECHO_ITS ---
Patient Info Name: Jaci Lee Age: 59 years : 1965 Gender: Female Ht: 64 in Wt: 87 lbs BSA: 1.32 m2 HR: 90 bpm BP: 151 / 90 mmHg Technical Quality: Good Exam Date: 01/29/2025 3:37 PM Patient Status: I Admit Date: 01/20/2025 Exam Type: CA echo doppler color flow Complete two-dimensional, color flow and Doppler transthoracic echocardiogram is performed. Staff Referring Physician: Abhishek Lorenzo Die Maker Electronic: Toshia Schaefer Attending Provider: Naila Torres DO Summary 1. Complete two-dimensional, color flow and Doppler transthoracic echocardiogram is performed. 2. Left ventricular chamber dimension is normal. 3. Left ventricular systolic function is normal, estimated at 55-60. 4. There is mild concentric increased left ventricular wall thickness. 5. The left ventricular diastolic function is grade I diastolic dysfunction. 6. E/e' 9 is minimally elevated. 7. Left atrial chamber dimension is moderately enlarged. 8. There is mild aortic valve sclerosis. 9. There is mild aortic valve stenosis based on a peak velocity of 214 cm/s, mean gradient of 9 mmHg, and aortic valve area of 1.8 cm2. 10. There is mild mitral valve regurgitation. 11. There is mild tricuspid valve regurgitation. 12. Moderate pulmonary hypertension, estimated pulmonary arterial systolic pressure is 53 mmHg. Left Ventricle E/e' 9 is minimally elevated. Left ventricular chamber dimension is normal. Left ventricular systolic function is normal, estimated at 55-60. There is mild concentric increased left ventricular wall thickness. The left ventricular diastolic function is grade I diastolic dysfunction. Right Ventricle Right ventricular chamber dimension is normal. Right ventricular systolic function is normal and with normal TAPSE 1.8 cm. Left Atria Left atrial chamber dimension is moderately enlarged. Right Atria Right atrial chamber dimension is normal. Aortic Valve The aortic valve is probable trileaflet. There is mild aortic valve sclerosis. There is mild aortic valve stenosis based on a peak velocity of 214 cm/s, mean gradient of 9 mmHg, and aortic valve area of 1.8 cm2. There is no aortic valve regurgitation. Pulmonic Valve There is no pulmonic regurgitation. Mitral Valve There is no mitral valve stenosis. There is mild mitral valve regurgitation. Tricuspid Valve There is mild tricuspid valve regurgitation. Moderate pulmonary hypertension, estimated pulmonary arterial systolic pressure is 53 mmHg. Pericardium/Pleural There is no pericardial effusion. Inferior Vena Cava Normal inferior vena cava with >50% collapse upon inspiration consistent with normal right atrial pressure, 5 mmHg. Aorta The aortic root size at the sinus of Valsalva is normal. Left Ventricular Outflow Tract Name Value Normal LVOT 2D LVOT Diameter 1.8 cm LVOT Doppler LVOT Peak Velocity 139 cm/s LVOT Peak Gradient 7 mmHg LVOT Mean Gradient 4 mmHg LVOT VTI 26 cm LVOT VTI/AV VTI Ratio 0.7 LVOT Stroke Volume 67 ml LVOT CO 5.7 l/min LVOT CI 4.4 l/min/m2 Pulmonic Valve Name Value Normal RVOT Doppler RVOT Peak Velocity 80 cm/s RVOT Peak Gradient 3 mmHg PV Doppler PV Peak Velocity 129 cm/s PV Peak Gradient 7 mmHg Mitral Valve Name Value Normal MV Diastolic Function MV E Peak Velocity 79 cm/s MV A Peak Velocity 96 cm/s MV E/A 0.8 MV Decel Time (PW) 278 ms MV Annular TDI MV E/e' (Septal) 12.9 MV E/e' (Lateral) 7.7 MV E/e' (Average) 10.3 Tricuspid Valve Name Value Normal TV Regurgitation Doppler TR Peak Velocity 347 cm/s TR Peak Gradient 42 mmHg Estimated PAP/RSVP RA Pressure 5 mmHg <=5 PA Systolic Pressure 53 mmHg <36 RV Systolic Pressure 53 mmHg <36 Aortic Valve Name Value Normal AV Doppler AV Peak Velocity 214 cm/s AV Peak Gradient 18 mmHg AV Mean Gradient 9 mmHg AV VTI 38 cm AV Area (Cont Eq VTI) 1.8 cm2 >=3.0 AV Area (Cont Eq Gennaro) 1.7 cm2 AV DI (Gennaro) 0.65 AV Regurgitation 2D LVOT Area 2.6 cm2 Ventricles Name Value Normal LV Dimensions 2D/MM IVS Diastolic Thickness (2D) 1.0 cm 0.6-1.0 LVID Diastole (2D) 4.4 cm 3.8-5.2 LVIW Diastolic Thickness (2D) 1.5 cm 0.6-0.9 LVID Systole (2D) 3.2 cm 2.2-3.5 LVOT Diameter 1.8 cm LV Mass (2D Cubed) 200.89 g 67.00-162.00 LV Mass Index (2D Cubed) 152 g/m2 43-95 Relative Wall Thickness (2D) 0.67 <=0.42 LV Fractional Shortening/Ejection Fraction 2D/MM LV Fractional Shortening (2D) 27 % 27-45 LV EF (2D Teichholz) 53 % LV Diastolic Volume (4C MOD) 134 ml LV EF (4C MOD) 56 % LV Diastolic Volume (2C MOD) 117 ml LV EF (2C MOD) 55 % LV Diastolic Volume (BP MOD) 126 ml 46-106 LV Diastolic Volume Index (BP MOD) 96 ml/m2 29-61 LV Systolic Volume (BP MOD) 56 ml 14-42 LV Systolic Volume Index (BP MOD) 42 ml/m2 8-24 LV EF (BP MOD) 56 % 54-74 LV Diastolic Length (4C) 8.0 cm LV Systolic Length (4C) 6.9 cm LV Stroke Volume (4C MOD) 75 ml Atria Name Value Normal LA Dimensions LA Volume (4C A-L) 48 ml LA Volume (BP A-L) 54 ml RA Dimensions RA Systolic Major [place] Length (4C) 5.6 cm 2.2-2.8 RA Area (4C) 16.9 cm2 <=18.0 Report Signatures
--- NOTE | 2025-01-29 14:46 | PM.IMPN ---
Progress Note: A&P Assessment and Plan (1) Acute hypoxic respiratory failure: Code(s): J96.01 - Acute respiratory failure with hypoxia Status: Acute Assessment and Plan: Acute respiratory failure secondary to aspiration pneumonia pleural effusion upper GI bleed with underlying COPD 01/20: Intubated in the ER on admission 01/24 patient was successfully extubated, Post extubation patient was tachypneic. She was placed on BiPAP but her tachypnea and work of breathing worsened and she complained of being short of breath. Was reintubate about an hour post extubation on the same day 01/24: Reintubated -01/28: Extubated successfully to AVAPS. Tolerated AVAPS all day and all night -placed on 2 L nasal cannula with adequate O2 sats and no respiratory distress -will continue BiPAP/AVAPS while pt is sleeping -pulmonology will be consulted -continue bronchodilators (2) Acute upper GI bleeding: Code(s): K92.2 - Gastrointestinal hemorrhage, unspecified Status: Acute Assessment and Plan: Acute upper GI bleed 01/20 EGD showed reflux/erosive/ulcerative esophagitis and hiatal hernia, no variceal bleed Status post transfusion of multiple units of PRBC Coagulopathy cryo and FFP Hemoglobin appears to be now stable. continue monitoring hemoglobin and transfuse additional PRBC if needed continue IV PPI. Octreotide was discontinued GI following (3) Transaminitis: Code(s): R74.01 - Elevation of levels of liver transaminase levels Status: Acute Assessment and Plan: AST and ALT mildly elevated likely consistent with alcoholic liver disease. Hepatitis C antibody screen is positive. RNA quantitative is [id number] -LFTs have normalized, continue to monitor (4) Alcoholic cirrhosis of liver with ascites: Code(s): K70.31 - Alcoholic cirrhosis of liver with ascites Status: Acute Assessment and Plan: Patient has cirrhosis from alcohol liver disease with CT scan showing ascites (5) Acute kidney injury superimposed on stage 4 chronic kidney disease: Code(s): N17.9 - Acute kidney failure, unspecified; N18.4 - Chronic kidney disease, stage 4 (severe) Status: Acute Assessment and Plan: Baseline creatinine in mid 2 Patient was given IV fluids but now off due to concern of volume overload and patient has also received significant amount of blood products. Monitor urine output electrolytes and creatinine CT scans not show any obstruction or stone Renal ultrasound showed mild bilateral hydronephrosis without any stones Appreciate nephrology following the patient. Patient responded well to Lasix for volume overload Chest x-ray shows bilateral infiltrates, possible edema, pneumonia or atelectasis, will give additional dose of Lasix today phosphorus has normalized -creatinine is improving (6) Coagulopathy: Code(s): D68.9 - Coagulation defect, unspecified Status: Acute Assessment and Plan: Coagulopathy secondary to cirrhosis and sepsis Patient received cryo and platelets, and FFP (7) Sepsis: Code(s): A41.9 - Sepsis, unspecified organism Status: Acute Assessment and Plan: Sepsis likely secondary to pneumonia which could be aspiration Blood cultures grew Staph hominis which is likely contaminant. Will discontinue vancomycin On IV Zosyn (end date 01/26) UA and micro also suggestive UTI. Urine cultures Negative (8) Anemia: Code(s): D64.9 - Anemia, unspecified Status: Acute Assessment and Plan: Likely multifactorial anemia from iron deficiency and anemia of chronic kidney disease along with acute blood loss Patient received a dose of iron And she has received for units of PRBC. Hemoglobin appears to have stabilized Monitor and transfuse additional if needed Management of GI bleeding as above Epogen per Nephrology (9) Thrombocytopenia: Code(s): D69.6 - Thrombocytopenia, unspecified Status: Acute Assessment and Plan: Thrombocytopenia likely combination of sepsis and cirrhosis. 01/20 Platelet transfusion -continue to monitor platelet level (10) Alcohol abuse: Code(s): F10.10 - Alcohol abuse, uncomplicated Status: Acute Assessment and Plan: History of alcohol abuse. Off all sedation Continue thiamine and folic acid (11) Severe protein-calorie malnutrition: Code(s): E43 - Unspecified severe protein-calorie malnutrition Status: Acute Assessment and Plan: Appears Malnourished and cachectic. -off tube feeds, -patient had a modified barium swallow test done on 01/29, speech therapy recommended: pureed diet level 4 and mildly thick liquids level 2. ST to treat and reassess pt's ability to manage solids if dentures are found (12) Acetabular fracture: Qualifiers: Encounter type: initial encounter Fracture alignment: nondisplaced Fracture type: closed Laterality: right Sublocation of acetabulum: unspecified portion of acetabulum Qualified Code(s): S32.401A - Unspecified fracture of right acetabulum, initial encounter for closed fracture Code(s): S32.409A - Unspecified fracture of unspecified acetabulum, initial encounter for closed fracture Status: Acute Assessment and Plan: Orthopedics evaluate the patient . No further recommendations at this time (13) Distal radial fracture: Qualifiers: Encounter type: subsequent encounter Fracture healing: with nonunion Fracture morphology: unspecified fracture morphology Fracture type: closed Laterality: left Qualified Code(s): S52.502K - Unspecified fracture of the lower end of left radius, subsequent encounter for closed fracture with nonunion Code(s): S52.509A - Unspecified fracture of the lower end of unspecified radius, initial encounter for closed fracture Status: Acute Assessment and Plan: seen by orthopedics. Splint removed as per recommendations. Subjective Date/time seen: 01/29/25 14:46 Interval history: Patient is currently in IMU. The patient was downgraded from the ICU today. The patient had a prolonged intubation and was extubated the day before yesterday?the patient is at high risk for re-intubation. Pulmonology was consulted and started on noninvasive ventilation for 2 days to prevent re-intubation. Patient will undergo ABG 24 hours off of NIV. The patient also has a lung cavity. Repeat CT chest to assess lung cavity. If the lung cavity persists, it will be treated with Augmentin for 2 weeks. An echocardiogram is ordered. Patient has a remote history of a large pleural effusion, possibly from ascites/cirrhosis. The patient's creatinine level is around 2, but her baseline in June 2024 was around 1.5. Patient will undergo gentle diuresis Review of Systems Review of Systems: All systems reviewed & are unremarkable except as noted in HPI and below ROS unobtainable: Yes unobtainable due to endotracheal tube, unobtainable due to medical condition and unobtainable due to mental status Exam Narrative: General: Pt is cachectic, appears older than her age, is awake and alert in no distress HEENT: Pupils are equal and reactive, sclera is clear, Lungs/Chest: Clear to auscultation bilaterally, decreased at bases, no wheezing, adequate air entry Cardiac: RRR. Normal S1 S2. No murmurs Abdomen: Normoactive bowel sounds. Soft. NT. ND. Extremities: No clubbing, cyanosis or edema. Pedal pulses are intact : Mclean in place Neurologic: Patient is awake, alert, able to answer questions, follows simple commands, her voice is soft Skin: NO skin lesions Objective Data Vital Signs Vital Signs: Vital Signs - 24 hr 01/28/25 16:00 01/28/25 16:00 01/28/25 16:00 Temperature Pulse Rate 80 79 Respiratory Rate 21 H Blood Pressure 148/102 H Pulse Oximetry 100 98 Oxygen Delivery BiPAP Oxygen Flow Rate Fraction of Inspired Oxygen 01/28/25 16:37 01/28/25 17:18 01/28/25 17:30 Temperature 96.8 F L Pulse Rate 78 Respiratory Rate 14 Blood Pressure 161/105 H Pulse Oximetry 99 Oxygen Delivery BiPAP Oxygen Flow Rate Fraction of Inspired Oxygen 01/28/25 17:42 01/28/25 18:00 01/28/25 18:00 Temperature 96.7 F L Pulse Rate 82 71 73 Respiratory Rate 21 H Blood Pressure 139/97 H Pulse Oximetry 100 Oxygen Delivery Oxygen Flow Rate Fraction of Inspired Oxygen 01/28/25 20:00 01/28/25 20:00 01/28/25 20:00 Temperature 96.9 F L Pulse Rate 75 73 Respiratory Rate 17 Blood Pressure 162/101 H Pulse Oximetry 100 100 Oxygen Delivery BiPAP Oxygen Flow Rate Fraction of Inspired Oxygen 30 01/28/25 21:00 01/28/25 21:06 01/28/25 21:15 Temperature Pulse Rate 76 79 71 Respiratory Rate 18 18 Blood Pressure Pulse Oximetry 100 Oxygen Delivery BiPAP Oxygen Flow Rate Fraction of Inspired Oxygen 01/28/25 21:22 01/28/25 22:00 01/28/25 22:00 Temperature Pulse Rate 83 73 73 Respiratory Rate 18 19 Blood Pressure 155/97 H Pulse Oximetry 100 Oxygen Delivery Oxygen Flow Rate Fraction of Inspired Oxygen 01/28/25 23:39 01/29/25 00:00 01/29/25 00:00 Temperature 96.8 F L Pulse Rate 79 78 Respiratory Rate 19 19 Blood Pressure 173/11 H Pulse Oximetry 100 100 100 Oxygen Delivery BiPAP BiPAP Oxygen Flow Rate Fraction of Inspired Oxygen 30 01/29/25 00:00 01/29/25 02:00 01/29/25 02:00 Temperature Pulse Rate 76 80 80 Respiratory Rate 22 H Blood Pressure 167/103 H Pulse Oximetry 99 Oxygen Delivery Oxygen Flow Rate Fraction of Inspired Oxygen 01/29/25 02:06 01/29/25 02:55 01/29/25 02:56 Temperature Pulse Rate 80 74 74 Respiratory Rate 19 19 Blood Pressure Pulse Oximetry 100 Oxygen Delivery BiPAP Oxygen Flow Rate Fraction of Inspired Oxygen 01/29/25 03:04 01/29/25 04:00 01/29/25 04:00 Temperature Pulse Rate 76 80 Respiratory Rate 19 Blood Pressure Pulse Oximetry 100 Oxygen Delivery BiPAP Oxygen Flow Rate Fraction of Inspired Oxygen 30 01/29/25 04:00 01/29/25 05:33 01/29/25 06:00 Temperature 97.0 F L Pulse Rate 78 84 86 Respiratory Rate 21 H 19 Blood Pressure 157/99 H Pulse Oximetry 98 98 Oxygen Delivery BiPAP Oxygen Flow Rate Fraction of Inspired Oxygen 01/29/25 06:00 01/29/25 06:56 01/29/25 06:59 Temperature Pulse Rate 86 82 82 Respiratory Rate 24 H 20 20 Blood Pressure 157/103 H Pulse Oximetry 95 98 Oxygen Delivery BiPAP Oxygen Flow Rate Fraction of Inspired Oxygen 01/29/25 07:36 01/29/25 07:57 01/29/25 08:00 Temperature 97.3 F L Pulse Rate 87 Respiratory Rate Blood Pressure Pulse Oximetry 98 Oxygen Delivery BiPAP Oxygen Flow Rate Fraction of Inspired Oxygen 30 01/29/25 08:04 01/29/25 09:27 01/29/25 10:00 Temperature 97.7 F Pulse Rate 88 87 82 Respiratory Rate 27 H 24 H Blood Pressure 167/105 H 158/99 H Pulse Oximetry 100 99 Oxygen Delivery Oxygen Flow Rate Fraction of Inspired Oxygen 01/29/25 10:00 01/29/25 12:00 01/29/25 12:00 Temperature 98.6 F Pulse Rate 83 85 Respiratory Rate 28 H Blood Pressure 151/89 H Pulse Oximetry 96 96 Oxygen Delivery High Flow Nasal Cannula Oxygen Flow Rate 2 Fraction of Inspired Oxygen 01/29/25 12:00 01/29/25 13:18 01/29/25 13:48 Temperature 98.1 F Pulse Rate 84 89 92 Respiratory Rate 23 H 20 Blood Pressure 151/90 H Pulse Oximetry 97 95 Oxygen Delivery High Flow Nasal Cannula Oxygen Flow Rate 1 Fraction of Inspired Oxygen 01/29/25 13:48 Temperature Pulse Rate 92 Respiratory Rate 20 Blood Pressure Pulse Oximetry Oxygen Delivery Oxygen Flow Rate Fraction of Inspired Oxygen Intake/Output Intake/Output: Intake & Output 01/26/25 01/27/25 01/28/25 01/29/25 23:59 23:59 23:59 23:59 Intake Total 1494 1016 1030 Output Total 900 6889 8290 650 Balance 268 -680 -402 -738 Meds/Results Medications: Active Medications Generic Name Dose Route Start Last Admin Trade Name Freq PRN Reason Stop Dose Admin Acetaminophen 650 mg 01/23/25 14:11 01/27/25 21:51 Acetaminophen 325 Mg Tablet FEED TUBE 650 mg Q4H PRN Administration Fever 1-3 Albuterol/Ipratropium 3 ml 01/26/25 14:00 01/29/25 13:47 Ipratropium 0.5 Mg/Albuterol Sulfate 2.5 Mg Ampul.Neb 3 Ml INHALATION 3 ml Q6HRT MEENA Administration Alteplase, Recombinant 2 mg 01/27/25 14:40 01/27/25 16:10 Alteplase 2 Mg Vial (Cathflo) IV PUSH 2 mg ONCE PRN Administration Line Occlusion Amlodipine Besylate 5 mg 01/25/25 09:00 01/29/25 08:25 Amlodipine Besylate 5 Mg Tablet FEED TUBE 5 mg DAILY MEENA Administration Budesonide 0.5 mg 01/26/25 10:00 01/29/25 07:01 Budesonide Respule Neb 0.5 Mg/2 Ml Amp INHALATION 0.5 mg Q12HRT MEENA Administration Dextrose 12.5 gm 01/20/25 08:23 01/29/25 11:47 Dextrose 50% 25 Gm/50 Ml Syringe IV PUSH 12.5 gm PRN PRN Administration Hypoglycemia Protocol Epoetin Emil-epbx 10,000 units 01/23/25 09:00 01/28/25 08:13 Epoetin Emil-Epbx 10,000 Units/Ml Vial SUB-Q 10,000 units TUTA@09 MEENA Administration Folic Acid 1 mg 01/20/25 09:00 01/29/25 08:18 Folic Acid 1 Mg/0.2 Ml Inj IV PUSH 1 mg QAM MEENA Administration Glucagon 1 mg 01/20/25 08:23 Glucagon For Inj 1 Mg Vial IM PRN PRN Hypoglycemia Protocol Glucose 15 gm 01/20/25 08:23 Glucose Oral Gel 15 Gm Of Glucse In 37.5 Gm Tube PO PRN PRN Hypoglycemia Protocol Hydralazine HCl 20 mg 01/24/25 03:34 01/28/25 05:37 Hydralazine Hcl 20 Mg/Ml Vial IV PUSH 20 mg Q4H PRN Administration Hypertension Hydralazine HCl 25 mg 01/27/25 07:40 01/29/25 06:19 Hydralazine Hcl 25 Mg Tablet PO Not Given Q8HR MEENA Dextrose 1,000 mls @ 100 mls/hr 01/20/25 08:23 Dextrose 5% 1,000 Ml IVPB PRN PRN Hypoglycemia Protocol Insulin Aspart 3 - 6 units 01/20/25 12:00 01/29/25 11:50 Insulin Aspart (*Bkc) 100 Units/Ml SUB-Q Not Given Q6HR MEENA Protocol Labetalol HCl 20 mg 01/23/25 09:31 01/29/25 09:27 Labetalol Hcl Inj 100 Mg/20 Ml Vial IV PUSH 20 mg Q4H PRN Administration SBP > 160 and HR> 60 -1st choice Multi-Ingred Cream/Lotion/Oil/Oint 1 applic 01/22/25 21:00 01/29/25 08:27 Mineral Oil/White Petrolatum Ointment EACH EYE Not Given Q12HR MEENA Pantoprazole Sodium 40 mg 01/21/25 09:00 01/29/25 08:18 Pantoprazole Sodium Iv 40 Mg Vial IV PUSH 40 mg Q12HR MEENA Administration Perflutren Lipid Microsphere 0 ml 01/29/25 14:20 Perflutren Lipid Microspheres 1.5 Ml Vial Diluted To 10 Ml Total Volume IV PUSH 02/01/25 14:20 ONCE PRN adequate visualization Protocol Sodium Chloride 10 ml 01/20/25 06:00 01/29/25 06:19 Central Line Flush IV PUSH 10 ml Q8HR MEENA Administration Sodium Chloride 20 ml 01/20/25 01:15 01/24/25 04:56 Central Line Flush IV PUSH 20 ml PRN PRN Administration after blood draws Thiamine HCl 100 mg 01/20/25 09:00 01/29/25 08:18 Thiamine Hcl 200 Mg/2 Ml Vial IV PUSH 100 mg QAM MEENA Administration Radiology Results: ITS Impressions Abdomen X-Ray 01/20/25 05:42 Impression: NG tube in satisfactory position. Small left pleural effusion. Chest/Abdomen/Pelvis CT 01/20/25 05:48 Impression: Moderate to large left pleural effusion with extensive left lower lobe atelectasis. Small right pleural effusion. 9 mm spiculated nodule in the right lower lobe, as detailed above, indeterminate. CT scan in 3 months advised. Consider PET/CT or attempted tissue sampling as indicated. Moderate emphysema. No definite evidence for GI bleed, but evaluation is limited without IV contrast and with oral contrast on board. Consider follow-up CT angiogram of the bowel to further evaluate for GI bleed, as indicated. Moderate abdominopelvic ascites. T12 compression fracture, somewhat age indeterminate, but new since 06/20/2024. Fractures of the right anterior acetabulum at the junction of the right superior pubic ramus and of the right inferior pubic ramus, acute to subacute in nature. Head CT 01/20/25 06:13 Impression: No intracranial hemorrhage, mass, or acute infarct. Atrophy and chronic white matter changes, as above. Wrist X-Ray 01/20/25 06:13 Impression: Probable chronic fracture deformities of the distal radius and ulnar styloid process, as detailed above. No definite acute fracture. Renal Ultrasound 01/21/25 08:42 IMPRESSION: 1. Medical renal disease. 2. Mild bilateral hydronephrosis. No nephrolithiasis. Hip/Pelvis X-Ray 01/24/25 11:12 Impression: 1: Healing right acetabular and inferior pubic rami fractures with callus formation. Chest X-Ray 01/28/25 05:45 Impression: 1: Retrocardiac airspace consolidation which may represent atelectasis or pneumonia. No significant change. Modified Barium Swallow 01/29/25 13:33 IMPRESSION: Pharyngeal dysphagia with laryngeal penetration and aspiration with thin liquids. Please correlate with speech pathologist findings and specific feeding recommendations. Labs Labs: Laboratory Results - last 24 hr 01/22/25 01/28/25 01/28/25 11:10 17:03 17:34 WBC RBC Hgb Hct MCV MCH MCHC RDW Plt Count MPV Immature Gran % (Auto) Neut % (Auto) Lymph % (Auto) Anson % (Auto) Eos % (Auto) Baso % (Auto) Lymph # (Auto) Anson # (Auto) Eos # (Auto) Baso # (Auto) Abs Immat Gran (auto) Absolute Neuts (auto) Absolute Nucleated RBC Nucleated RBC % % Immature Plt Fraction Sodium Potassium Chloride Carbon Dioxide Anion Gap BUN Creatinine Estim Creat Clear Calc Estimated GFR Glucose POC Capillary Glucose 105 100 Calcium Phosphorus Magnesium Total Bilirubin AST ALT Alkaline Phosphatase Total Protein Albumin Cryoglobulin Qualit Comment 01/29/25 01/29/25 01/29/25 00:31 04:58 11:44 WBC 6.1 RBC 3.56 L Hgb 10.7 L Hct 35.7 L MCV 100.3 H MCH 30.1 MCHC 30.0 L RDW 22.7 H Plt Count 32 L MPV 11.6 H Immature Gran % (Auto) 0.8 H Neut % (Auto) 65.7 Lymph % (Auto) 20.3 Anson % (Auto) 10.6 H Eos % (Auto) 2.1 Baso % (Auto) 0.5 Lymph # (Auto) 1.24 Anson # (Auto) 0.7 H Eos # (Auto) 0.1 Baso # (Auto) 0.0 Abs Immat Gran (auto) 0.05 H Absolute Neuts (auto) 4.0 Absolute Nucleated RBC 0.000 Nucleated RBC % 0.0 % Immature Plt Fraction 3.5 Sodium 147 H Potassium 4.3 Chloride 112 H Carbon Dioxide 28 Anion Gap 7 BUN 63 H Creatinine 2.06 H Estim Creat Clear Calc 16 Estimated GFR 25 L Glucose 82 POC Capillary Glucose 97 74 Calcium 8.3 L Phosphorus 3.5 Magnesium 1.9 Total Bilirubin 1.3 AST 28 ALT 25 Alkaline Phosphatase 72 Total Protein 5.5 L Albumin 3.1 L Cryoglobulin Qualit 01/29/25 01/29/25 12:01 12:23 WBC RBC Hgb Hct MCV MCH MCHC RDW Plt Count MPV Immature Gran % (Auto) Neut % (Auto) Lymph % (Auto) Anson % (Auto) Eos % (Auto) Baso % (Auto) Lymph # (Auto) Anson # (Auto) Eos # (Auto) Baso # (Auto) Abs Immat Gran (auto) Absolute Neuts (auto) Absolute Nucleated RBC Nucleated RBC % % Immature Plt Fraction Sodium Potassium Chloride Carbon Dioxide Anion Gap BUN Creatinine Estim Creat Clear Calc Estimated GFR Glucose POC Capillary Glucose 138 H 103 Calcium Phosphorus Magnesium Total Bilirubin AST ALT Alkaline Phosphatase Total Protein Albumin Cryoglobulin [facility] Hospitalist MIPS Advance Care Plan I have confirmed that the patient's Advanced Care Plan is present, code status is documented, or surrogate decision maker is listed in patient medical record.: Yes Medication Reconciliation I have utilized all available resources to obtain, update and review the patients current medications (includes all prescriptions, OTC, herbals, cannabis, and nutritional supplements).: Yes
[2025-01-29] MEDS: MINERAL OIL/WHITE PETROLATUM OINTMENT 1 APPLIC EACH EYE (21:43)
[2025-01-30] VITALS (38 sets, daily range): BP systolic 132–184; BP diastolic 63–105; PULSE 82–124; RESP 16–34; TEMP 36.4–38.8; O2SAT 92–98
[2025-01-30] MEDS: IPRATROPIUM 0.5 MG/ALBUTEROL SULFATE 2.5 MG AMPUL.NEB 3 ML INHALATION ×4 (02:10→20:16)
[2025-01-30] MEDS: ACETAMINOPHEN 325 MG TABLET 650 MG FEED TUBE ×3 (02:50→21:49)
[2025-01-30 04:18] LABS: Hematocrit 37.0 % (37.0-47.0); Hemoglobin 11.0 g/dL (12.0-15.0); Immature Platelet Fraction Pct 2.7 % (0.9-11.2); Mean Corpuscular HGB Conc 29.7 g/dl (32-36); Mean Corpuscular Hemoglobin 29.6 pg (26-34); Mean Corpuscular Volume 99.7 fl (80-100); Red Blood Count 3.71 M/mm3 (4.2-5.4); White Blood Count 12.3 K/mm3 (4.5-10.0)
[2025-01-30 04:48] LABS: Alanine Aminotransferase 24 U/L (6-35); Albumin Level 3.3 g/dL (3.5-5.1); Alkaline Phosphatase 91 U/L (38-126); Anion Gap 7 mmol/L (4-12); Aspartate Amino Transferase 28 U/L (14-36); Bilirubin,Total 1.6 mg/dL (0.2-1.3); Blood Urea Nitrogen 60 mg/dL (7-17); Calcium 8.2 mg/dL (8.4-10.2); Carbon Dioxide 26 mmol/L (22-30); Chloride 115 mmol/L (98-107); Estimated CRCL calculation 16 ml/min; Estimated Glomerular Filt Rate 24; Glucose 103 mg/dL (65-110); Magnesium 1.9 mg/dL (1.6-2.3); Potassium 4.0 mmol/L (3.4-5.0); Sodium 148 mmol/L (137-145); Total Protein 6.0 g/dL (6.3-8.2)
[2025-01-30 04:56] LABS: Platelet Count Result 37 k/mm3 (150-375)
[2025-01-30 04:59] LABS: Anisocytosis 1+; Band Neutrophils Percent 2 % (0-6); Lymphocytes Absolute Manual 0.49 K/mm3 (1.1-4.5); Lymphocytes Percent Manual 4.0 % (18-44); Microcytosis 1+ (NORMAL); Monocytes Absolute Manual 0.49 K/mm3 (0.1-0.90); Monocytes Percent Manual 4 % (3-9); Neutrophils Absolute Manual 11.31 K/mm3 (1.3-6.7); Neutrophils Percent Manual 90 % (46-73); Schistocytes None Seen; Smudge Cells PRESENT; Total Cells Counted 100
[2025-01-30] MEDS: BUDESONIDE RESPULE NEB 0.5 MG/2 ML AMP INHALATION ×2 (08:12→20:16)
[2025-01-30] MEDS: PANTOPRAZOLE SODIUM IV 40 MG VIAL IV PUSH ×2 (08:27→21:21)
[2025-01-30] MEDS: THIAMINE HCL 200 MG/2 ML VIAL 100 MG IV PUSH (08:27)
--- NOTE | 2025-01-30 08:38 | PM.IMPN ---
Progress Note: A&P Assessment and Plan (1) Acute hypoxic respiratory failure: Code(s): J96.01 - Acute respiratory failure with hypoxia Status: Acute Assessment and Plan: Acute respiratory failure secondary to aspiration pneumonia pleural effusion upper GI bleed with underlying COPD 01/20: Intubated in the ER on admission 01/24 patient was successfully extubated, Post extubation patient was tachypneic. She was placed on BiPAP but her tachypnea and work of breathing worsened and she complained of being short of breath. Was reintubate about an hour post extubation on the same day 01/24: Reintubated -01/28: Extubated successfully to AVAPS. Tolerated AVAPS all day and all night -placed on 2 L nasal cannula with adequate O2 sats and no respiratory distress -will continue BiPAP/AVAPS while pt is sleeping -01/29: pulmonology will be consulted -continue bronchodilators -BiPAP to avoid reintubation -01/30: High-flow nasal cannula -started on ceftriaxone, Flagyl and vancomycin due to sepsis (2) Acute upper GI bleeding: Code(s): K92.2 - Gastrointestinal hemorrhage, unspecified Status: Acute Assessment and Plan: Acute upper GI bleed 01/20 EGD showed reflux/erosive/ulcerative esophagitis and hiatal hernia, no variceal bleed Status post transfusion of multiple units of PRBC Coagulopathy cryo and FFP Hemoglobin appears to be now stable. continue monitoring hemoglobin and transfuse additional PRBC if needed continue IV PPI. Octreotide was discontinued GI following (3) Transaminitis: Code(s): R74.01 - Elevation of levels of liver transaminase levels Status: Acute Assessment and Plan: AST and ALT mildly elevated likely consistent with alcoholic liver disease. Hepatitis C antibody screen is positive. RNA quantitative is [id number] -LFTs have normalized, continue to monitor (4) Alcoholic cirrhosis of liver with ascites: Code(s): K70.31 - Alcoholic cirrhosis of liver with ascites Status: Acute Assessment and Plan: Patient has cirrhosis from alcohol liver disease with CT scan showing ascites (5) Acute kidney injury superimposed on stage 4 chronic kidney disease: Code(s): N17.9 - Acute kidney failure, unspecified; N18.4 - Chronic kidney disease, stage 4 (severe) Status: Acute Assessment and Plan: Baseline creatinine in mid 2 Patient was given IV fluids but now off due to concern of volume overload and patient has also received significant amount of blood products. Monitor urine output electrolytes and creatinine CT scans not show any obstruction or stone Renal ultrasound showed mild bilateral hydronephrosis without any stones Appreciate nephrology following the patient. Patient responded well to Lasix for volume overload Chest x-ray shows bilateral infiltrates, possible edema, pneumonia or atelectasis, will give additional dose of Lasix today phosphorus has normalized -creatinine is improving (6) Coagulopathy: Code(s): D68.9 - Coagulation defect, unspecified Status: Acute Assessment and Plan: Coagulopathy secondary to cirrhosis and sepsis Patient received cryo and platelets, and FFP (7) Sepsis: Code(s): A41.9 - Sepsis, unspecified organism Status: Acute Assessment and Plan: 01/30: Patient started on ceftriaxone, Flagyl and vancomycin due to sepsis Reviewed CT chest which shows cavitary lesion in right lower lobe. ID consulted Sepsis likely secondary to pneumonia which could be aspiration Blood cultures grew Staph hominis which is likely contaminant. Will discontinue vancomycin On IV Zosyn (end date 01/26) UA and micro also suggestive UTI. Urine cultures Negative (8) Anemia: Code(s): D64.9 - Anemia, unspecified Status: Acute Assessment and Plan: Likely multifactorial anemia from iron deficiency and anemia of chronic kidney disease along with acute blood loss Patient received a dose of iron And she has received for units of PRBC. Hemoglobin appears to have stabilized Monitor and transfuse additional if needed Management of GI bleeding as above Epogen per Nephrology (9) Thrombocytopenia: Code(s): D69.6 - Thrombocytopenia, unspecified Status: Acute Assessment and Plan: Thrombocytopenia likely combination of sepsis and cirrhosis. 01/20 Platelet transfusion -continue to monitor platelet level (10) Alcohol abuse: Code(s): F10.10 - Alcohol abuse, uncomplicated Status: Acute Assessment and Plan: History of alcohol abuse. Off all sedation Continue thiamine and folic acid (11) Severe protein-calorie malnutrition: Code(s): E43 - Unspecified severe protein-calorie malnutrition Status: Acute Assessment and Plan: Appears Malnourished and cachectic. -off tube feeds, -patient had a modified barium swallow test done on 01/29, speech therapy recommended: pureed diet level 4 and mildly thick liquids level 2. ST to treat and reassess pt's ability to manage solids if dentures are found (12) Acetabular fracture: Qualifiers: Encounter type: initial encounter Fracture alignment: nondisplaced Fracture type: closed Laterality: right Sublocation of acetabulum: unspecified portion of acetabulum Qualified Code(s): S32.401A - Unspecified fracture of right acetabulum, initial encounter for closed fracture Code(s): S32.409A - Unspecified fracture of unspecified acetabulum, initial encounter for closed fracture Status: Acute Assessment and Plan: Orthopedics evaluate the patient . No further recommendations at this time (13) Distal radial fracture: Qualifiers: Encounter type: subsequent encounter Fracture healing: with nonunion Fracture morphology: unspecified fracture morphology Fracture type: closed Laterality: left Qualified Code(s): S52.502K - Unspecified fracture of the lower end of left radius, subsequent encounter for closed fracture with nonunion Code(s): S52.509A - Unspecified fracture of the lower end of unspecified radius, initial encounter for closed fracture Status: Acute Assessment and Plan: seen by orthopedics. Splint removed as per recommendations. Subjective Date/time seen: 01/30/25 08:38 Interval history: Interval HPI:60-year-old female with a past medical history of alcoholism, cirrhosis, chronic kidney disease stage IV, chronic encephalopathy, tobacco abuse and severe protein calorie malnutrition who presented to the ER via EMS for GI bleed. Patient is a poor historian and neglects taking care of her health and seeks medical attention until it worsens. Patient had recently sustained fracture of the right hip and Orthopedics was consulted. Orthopedics evaluated the patient and advised for left distal radius fracture believe this is a stable fracture and splint can be removed and with regards to her acetabular fracture Ortho will order pelvic x-rays and pending recommendation from Ortho. Patient underwent EGD on 01/20 had evidence of erosive esophagitis but no varices.Patient also has a history of transaminitis and positive for hepatitis-C. Patient was extubated on 01/28. During current hospitalization patient has been treated for acute hypoxic respiratory failure, upper GI bleed, transaminitis, coagulopathy, anemia and thrombocytopenia. 0 01/29 rental representative started the patient on BiPAP to prevent reintubate and repeated chest CT for the follow-up of cavitary lesion in the right lower lobe. 0 01/30 patient is sepsis due to elevated heart rate and WBC. ID was consulted in regards to cavitary lesion. He agrees to start ceftriaxone, Flagyl and vancomycin. Patient prognosis is guarded. Consulted hospice. 01/29: Patient is currently in IMU. The patient was downgraded from the ICU today. The patient had a prolonged intubation and was extubated the day before yesterday?the patient is at high risk for re-intubation. Pulmonology was consulted and started on noninvasive ventilation for 2 days to prevent re-intubation. Patient will undergo ABG 24 hours off of NIV. The patient also has a lung cavity. Repeat CT chest to assess lung cavity. If the lung cavity persists, it will be treated with Augmentin for 2 weeks. An echocardiogram is ordered. Patient has a remote history of a large pleural effusion, possibly from ascites/cirrhosis. The patient's creatinine level is around 2, but her baseline in June 2024 was around 1.5. Patient will undergo gentle diuresis 01/31: ID was consulted due to sepsis/cavitary lesion on the right lower lobe. Patient started on ceftriaxone, Flagyl and vancomycin. Patient prognosis is guarded.Called POA and had a long discussion with POA ,she agrees to talk to hospice and keep her in full code. Review of Systems Review of Systems: All systems reviewed & are unremarkable except as noted in HPI and below ROS unobtainable: Yes unobtainable due to endotracheal tube, unobtainable due to medical condition and unobtainable due to mental status Exam Narrative: General: Pt is cachectic, appears older than her age, is awake and alert in no distress HEENT: Pupils are equal and reactive, sclera is clear, Lungs/Chest: Clear to auscultation bilaterally, decreased at bases, no wheezing, adequate air entry Cardiac: RRR. Normal S1 S2. No murmurs Abdomen: Normoactive bowel sounds. Soft. NT. ND. Extremities: No clubbing, cyanosis or edema. Pedal pulses are intact : Mclean in place Neurologic: Patient is awake, alert, able to answer questions, follows simple commands, her voice is soft Skin: NO skin lesions Objective Data Vital Signs Vital Signs: Vital Signs - 24 hr 01/29/25 09:27 01/29/25 10:00 01/29/25 10:00 Temperature 97.7 F Pulse Rate 87 82 83 Respiratory Rate 24 H Blood Pressure 158/99 H Pulse Oximetry 99 Oxygen Delivery Oxygen Flow Rate Fraction of Inspired Oxygen 01/29/25 12:00 01/29/25 12:00 01/29/25 12:00 Temperature 98.6 F Pulse Rate 85 84 Respiratory Rate 28 H Blood Pressure 151/89 H Pulse Oximetry 96 96 Oxygen Delivery High Flow Nasal Cannula Oxygen Flow Rate 2 Fraction of Inspired Oxygen 01/29/25 13:18 01/29/25 13:48 01/29/25 13:48 Temperature 98.1 F Pulse Rate 89 92 92 Respiratory Rate 23 H 20 20 Blood Pressure 151/90 H Pulse Oximetry 97 95 Oxygen Delivery High Flow Nasal Cannula Oxygen Flow Rate 1 Fraction of Inspired Oxygen 01/29/25 14:00 01/29/25 15:00 01/29/25 16:00 Temperature 98.8 F Pulse Rate 92 90 89 Respiratory Rate 25 H Blood Pressure 130/81 Pulse Oximetry 92 Oxygen Delivery Oxygen Flow Rate Fraction of Inspired Oxygen 01/29/25 17:00 01/29/25 18:00 01/29/25 20:00 Temperature Pulse Rate 98 100 102 H Respiratory Rate Blood Pressure 151/89 H Pulse Oximetry 91 Oxygen Delivery Oxygen Flow Rate Fraction of Inspired Oxygen 01/29/25 20:37 01/29/25 20:50 01/29/25 20:51 Temperature Pulse Rate 84 94 Respiratory Rate 20 20 Blood Pressure Pulse Oximetry 96 Oxygen Delivery High Flow Nasal Cannula Oxygen Flow Rate 2 Fraction of Inspired Oxygen 01/29/25 21:00 01/29/25 21:27 01/29/25 22:00 Temperature 98.1 F Pulse Rate 100 100 110 H Respiratory Rate 22 H 22 H Blood Pressure 147/92 H Pulse Oximetry 97 97 Oxygen Delivery Nasal Cannula Oxygen Flow Rate 2 Fraction of Inspired Oxygen 01/30/25 00:00 01/30/25 00:00 01/30/25 00:40 Temperature 99.1 F Pulse Rate 121 H 120 H 121 H Respiratory Rate 20 20 Blood Pressure 184/76 H Pulse Oximetry 92 92 Oxygen Delivery Nasal Cannula Oxygen Flow Rate 2 Fraction of Inspired Oxygen 01/30/25 01:05 01/30/25 01:15 01/30/25 02:00 Temperature Pulse Rate 84 124 H 105 H Respiratory Rate 19 Blood Pressure Pulse Oximetry 97 Oxygen Delivery Oxygen Flow Rate Fraction of Inspired Oxygen 01/30/25 02:15 01/30/25 02:20 01/30/25 02:25 Temperature Pulse Rate 82 Respiratory Rate 20 Blood Pressure 179/105 H 180/104 H Pulse Oximetry Oxygen Delivery Oxygen Flow Rate Fraction of Inspired Oxygen 01/30/25 02:30 01/30/25 02:35 01/30/25 02:40 Temperature 101.8 F H Pulse Rate 88 89 Respiratory Rate 20 19 Blood Pressure Pulse Oximetry 97 Oxygen Delivery Oxygen Flow Rate Fraction of Inspired Oxygen 01/30/25 02:50 01/30/25 03:38 01/30/25 03:50 Temperature 101.8 F H 98.4 F Pulse Rate 104 H Respiratory Rate 34 H Blood Pressure Pulse Oximetry 93 Oxygen Delivery BiPAP Oxygen Flow Rate Fraction of Inspired Oxygen 01/30/25 04:00 01/30/25 04:00 01/30/25 04:55 Temperature 98.4 F Pulse Rate 104 H 106 H 90 Respiratory Rate 34 H 16 Blood Pressure 156/84 H Pulse Oximetry 93 96 Oxygen Delivery Oxygen Flow Rate Fraction of Inspired Oxygen 01/30/25 06:00 01/30/25 07:59 01/30/25 08:14 Temperature 98.3 F Pulse Rate 99 102 H 108 H Respiratory Rate 18 18 Blood Pressure 167/90 H Pulse Oximetry 96 Oxygen Delivery Oxygen Flow Rate Fraction of Inspired Oxygen 01/30/25 08:20 01/30/25 08:22 Temperature Pulse Rate Respiratory Rate Blood Pressure Pulse Oximetry 98 96 Oxygen Delivery High Flow Therapy with Na High Flow Therapy with Na Oxygen Flow Rate 2 1 Fraction of Inspired Oxygen Intake/Output Intake/Output: Intake & Output 01/27/25 01/28/25 01/29/25 01/30/25 23:59 23:59 23:59 23:59 Intake Total 1016 1030 240 0 Output Total 1300 1150 650 450 Balance -284 -120 -410 -450 Meds/Results Medications: Active Medications Generic Name Dose Route Start Last Admin Trade Name Freq PRN Reason Stop Dose Admin Acetaminophen 650 mg 01/23/25 14:11 01/30/25 08:27 Acetaminophen 325 Mg Tablet FEED TUBE 650 mg Q4H PRN Administration Fever 1-3 Albuterol/Ipratropium 3 ml 01/26/25 14:00 01/30/25 08:10 Ipratropium 0.5 Mg/Albuterol Sulfate 2.5 Mg Ampul.Neb 3 Ml INHALATION 3 ml Q6HRT MEENA Administration Alteplase, Recombinant 2 mg 01/27/25 14:40 01/27/25 16:10 Alteplase 2 Mg Vial (Cathflo) IV PUSH 2 mg ONCE PRN Administration Line Occlusion Amlodipine Besylate 5 mg 01/25/25 09:00 01/30/25 08:27 Amlodipine Besylate 5 Mg Tablet FEED TUBE 5 mg DAILY MEENA Administration Budesonide 0.5 mg 01/26/25 10:00 01/30/25 08:12 Budesonide Respule Neb 0.5 Mg/2 Ml Amp INHALATION 0.5 mg Q12HRT MEENA Administration Dextrose 12.5 gm 01/20/25 08:23 01/29/25 11:47 Dextrose 50% 25 Gm/50 Ml Syringe IV PUSH 12.5 gm PRN PRN Administration Hypoglycemia Protocol Epoetin Emil-epbx 10,000 units 01/23/25 09:00 01/28/25 08:13 Epoetin Emil-Epbx 10,000 Units/Ml Vial SUB-Q 10,000 units TUTHSA@09 MEENA Administration Folic Acid 1 mg 01/20/25 09:00 01/29/25 08:18 Folic Acid 1 Mg/0.2 Ml Inj IV PUSH 1 mg QAM MEENA Administration Glucagon 1 mg 01/20/25 08:23 Glucagon For Inj 1 Mg Vial IM PRN PRN Hypoglycemia Protocol Glucose 15 gm 01/20/25 08:23 Glucose Oral Gel 15 Gm Of Glucse In 37.5 Gm Tube PO PRN PRN Hypoglycemia Protocol Hydralazine HCl 20 mg 01/24/25 03:34 01/30/25 02:48 Hydralazine Hcl 20 Mg/Ml Vial IV PUSH 20 mg Q4H PRN Administration Hypertension Hydralazine HCl 25 mg 01/27/25 07:40 01/30/25 06:01 Hydralazine Hcl 25 Mg Tablet PO 25 mg Q8HR MEENA Administration Dextrose 1,000 mls @ 100 mls/hr 01/20/25 08:23 Dextrose 5% 1,000 Ml IVPB PRN PRN Hypoglycemia Protocol Insulin Aspart 3 - 6 units 01/20/25 12:00 01/30/25 06:00 Insulin Aspart (*Bkc) 100 Units/Ml SUB-Q Not Given Q6HR MEENA Protocol Labetalol HCl 20 mg 01/23/25 09:31 01/30/25 01:15 Labetalol Hcl Inj 100 Mg/20 Ml Vial IV PUSH 20 mg Q4H PRN Administration SBP > 160 and HR> 60 -1st choice Multi-Ingred Cream/Lotion/Oil/Oint 1 applic 01/22/25 21:00 01/30/25 08:27 Mineral Oil/White Petrolatum Ointment EACH EYE Not Given Q12HR MEENA Pantoprazole Sodium 40 mg 01/21/25 09:00 01/30/25 08:27 Pantoprazole Sodium Iv 40 Mg Vial IV PUSH 40 mg Q12HR MEENA Administration Perflutren Lipid Microsphere 0 ml 01/29/25 14:20 Perflutren Lipid Microspheres 1.5 Ml Vial Diluted To 10 Ml Total Volume IV PUSH 02/01/25 14:20 ONCE PRN adequate visualization Protocol Thiamine HCl 100 mg 01/20/25 09:00 01/30/25 08:27 Thiamine Hcl 200 Mg/2 Ml Vial IV PUSH 100 mg QAM MEENA Administration Radiology Results: ITS Impressions Abdomen X-Ray 01/20/25 05:42 Impression: NG tube in satisfactory position. Small left pleural effusion. Chest/Abdomen/Pelvis CT 01/20/25 05:48 Impression: Moderate to large left pleural effusion with extensive left lower lobe atelectasis. Small right pleural effusion. 9 mm spiculated nodule in the right lower lobe, as detailed above, indeterminate. CT scan in 3 months advised. Consider PET/CT or attempted tissue sampling as indicated. Moderate emphysema. No definite evidence for GI bleed, but evaluation is limited without IV contrast and with oral contrast on board. Consider follow-up CT angiogram of the bowel to further evaluate for GI bleed, as indicated. Moderate abdominopelvic ascites. T12 compression fracture, somewhat age indeterminate, but new since 06/20/2024. Fractures of the right anterior acetabulum at the junction of the right superior pubic ramus and of the right inferior pubic ramus, acute to subacute in nature. Head CT 01/20/25 06:13 Impression: No intracranial hemorrhage, mass, or acute infarct. Atrophy and chronic white matter changes, as above. Wrist X-Ray 01/20/25 06:13 Impression: Probable chronic fracture deformities of the distal radius and ulnar styloid process, as detailed above. No definite acute fracture. Renal Ultrasound 01/21/25 08:42 IMPRESSION: 1. Medical renal disease. 2. Mild bilateral hydronephrosis. No nephrolithiasis. Hip/Pelvis X-Ray 01/24/25 11:12 Impression: 1: Healing right acetabular and inferior pubic rami fractures with callus formation. Chest X-Ray 01/28/25 05:45 Impression: 1: Retrocardiac airspace consolidation which may represent atelectasis or pneumonia. No significant change. Modified Barium Swallow 01/29/25 13:33 IMPRESSION: Pharyngeal dysphagia with laryngeal penetration and aspiration with thin liquids. Please correlate with speech pathologist findings and specific feeding recommendations. Chest CT 01/29/25 16:18 IMPRESSION: 1. Grossly stable size and configuration of the 0.9 cm cavitary lesion in the superior segment of the right lower lobe. Differential includes but is not limited to an infectious process, necrotic malignancy or septic pulmonary embolus. Consider a biopsy or PET/CT. Short-term follow-up is recommended. 2. Moderate-sized left-sided pleural effusion. 3. Small right-sided pleural effusion. 4. Moderate-sized consolidation in the left lower lobe with air bronchograms. Recommend follow-up to resolution. 5. There is contrast within the stomach and proximal small bowel. 6. There is nonspecific fluid and fat stranding in the upper abdomen similar to the CT study from 01/20/2025. Labs Labs: Laboratory Results - last 24 hr 01/29/25 01/29/25 01/29/25 11:44 12:01 12:23 WBC RBC Hgb Hct MCV MCH MCHC RDW Plt Count MPV Immature Gran % (Auto) Neut % (Auto) Lymph % (Auto) [place] % (Auto) Eos % (Auto) Baso % (Auto) Lymph # (Auto) [place] # (Auto) Eos # (Auto) Baso # (Auto) Abs Immat Gran (auto) Absolute Neuts (auto) Absolute Nucleated RBC Total Counted Neutrophils % (Manual) Band Neutrophils % Lymphocytes % (Manual) Monocytes % (Manual) Nucleated RBC % Abs Neuts (Manual) Abs Lymphs (Manual) Abs Monocytes (Manual) Smudge Cells Platelet Estimate % Immature Plt Fraction Anisocytosis Microcytosis Schistocytes Sodium Potassium Chloride Carbon Dioxide Anion Gap BUN Creatinine Estim Creat Clear Calc Estimated GFR Glucose POC Capillary Glucose 74 138 H 103 Calcium Phosphorus Magnesium Total Bilirubin AST ALT Alkaline Phosphatase Total Protein Albumin 01/29/25 01/29/25 01/30/25 18:17 23:56 03:45 WBC 12.3 H RBC 3.71 L Hgb 11.0 L Hct 37.0 MCV 99.7 MCH 29.6 MCHC 29.7 L RDW 23.3 H Plt Count 37 L MPV 12.4 H Immature Gran % (Auto) Not Reportable Neut % (Auto) Not Reportable Lymph % (Auto) Not Reportable [place] % (Auto) Not Reportable Eos % (Auto) Not Reportable Baso % (Auto) Not Reportable Lymph # (Auto) Not Reportable [place] # (Auto) Not Reportable Eos # (Auto) Not Reportable Baso # (Auto) Not Reportable Abs Immat Gran (auto) Not Reportable Absolute Neuts (auto) Not Reportable Absolute Nucleated RBC Not Reportable Total Counted 100 Neutrophils % (Manual) 90 H Band Neutrophils % 2 Lymphocytes % (Manual) 4.0 L Monocytes % (Manual) 4 Nucleated RBC % Not Reportable Abs Neuts (Manual) 11.31 H Abs Lymphs (Manual) 0.49 L Abs Monocytes (Manual) 0.49 Smudge Cells Present Platelet Estimate Decreased % Immature Plt Fraction 2.7 Anisocytosis 1+ Microcytosis 1+ Schistocytes None seen Sodium 148 H Potassium 4.0 Chloride 115 H Carbon Dioxide 26 Anion Gap 7 BUN 60 H Creatinine 2.13 H Estim Creat Clear Calc 16 Estimated GFR 24 L Glucose 103 POC Capillary Glucose 116 H 99 Calcium 8.2 L Phosphorus 3.3 Magnesium 1.9 Total Bilirubin 1.6 H AST 28 ALT 24 Alkaline Phosphatase 91 Total Protein 6.0 L Albumin 3.3 L 01/30/25 05:47 WBC RBC Hgb Hct MCV MCH MCHC RDW Plt Count MPV Immature Gran % (Auto) Neut % (Auto) Lymph % (Auto) [place] % (Auto) Eos % (Auto) Baso % (Auto) Lymph # (Auto) [place] # (Auto) Eos # (Auto) Baso # (Auto) Abs Immat Gran (auto) Absolute Neuts (auto) Absolute Nucleated RBC Total Counted Neutrophils % (Manual) Band Neutrophils % Lymphocytes % (Manual) Monocytes % (Manual) Nucleated RBC % Abs Neuts (Manual) Abs Lymphs (Manual) Abs Monocytes (Manual) Smudge Cells Platelet Estimate % Immature Plt Fraction Anisocytosis Microcytosis Schistocytes Sodium Potassium Chloride Carbon Dioxide Anion Gap BUN Creatinine Estim Creat Clear Calc Estimated GFR Glucose POC Capillary Glucose 94 Calcium Phosphorus Magnesium Total Bilirubin AST ALT Alkaline Phosphatase Total Protein Albumin Quality VTE Prophylaxis VTE prophylaxis: mechanical ordered Hospitalist MIPS Advance Care Plan I have confirmed that the patient's Advanced Care Plan is present, code status is documented, or surrogate decision maker is listed in patient medical record.: Yes Medication Reconciliation I have utilized all available resources to obtain, update and review the patients current medications (includes all prescriptions, OTC, herbals, cannabis, and nutritional supplements).: Yes
[2025-01-30] MEDS: FOLIC ACID 1 MG/0.2 ML INJ IV PUSH (08:45)
[2025-01-30] MEDS: EPOETIN ALFA-EPBX 10,000 UNITS/ML VIAL 10000 UNITS SUB-Q (08:45)
[2025-01-30 09:11] LABS: Triglycerides 133 mg/dL (<150)
--- NOTE | 2025-01-30 11:17 | P.PNNP_ITS ---
Progress Note: A&P Assessment and Plan (1) Acute kidney injury: Code(s): N17.9 - Acute kidney failure, unspecified Status: Acute Assessment and Plan: * creatinine started out at around 3.4 and improved to around to but now up to 2.13. * likely due to multiple issues: * prerenal factors (poor nutrition) * anemia/GI bleed * infection/sepsis (+ blood cultures) * respiratory failure * hypoxia * liver disease/cirrhosis * progression of underlying CKD * other(?) * evaluation to date noted: * renal ultrasound with CKD and mild bilateral hydronephrosis - mcqueen catheter placed * urine electrolytes prerenal - suspect due to a combination of poor oral intake AND liver disease/physiology (decreased effective circulating volume) * urine eosinophils negative * CPK low * ~ 2 grams of proteinuria * Blood pressure is not low. * Patient is not eating very well. She is on a pureed diet. I wonder how much she is actually drinking. intake/ output is only 240 in and 650 out. * Sodium level is high at 148 * I suspect her creatinine and sodium are both higher because is because she is not taking anything in. * will start half-normal saline and repeat labs tomorrow. (2) Stage 4 chronic kidney disease: Code(s): N18.4 - Chronic kidney disease, stage 4 (severe) Status: Chronic Assessment and Plan: * not entirely clear what baseline creatinine really is.... * was noted to be ~ 1.4 - 1.6mg/dl in June 2024 * however, since December 2024, has been running ~ 2.4 - 2.6mg/dl (from record review from [facility]) * most recent labs done on 01/15/25 -- creatinine up to 2.79mg/dl (ER visit at [facility] prior to leaving [place]) * possible baseline creatinine around 2ish range?? (3) Acute hypoxic respiratory failure: Code(s): J96.01 - Acute respiratory failure with hypoxia Status: Acute Assessment and Plan: * resolving * multifactorial: * inability to protect airway * aspiration pneumonia * pleural effusions * suspected upper GI bleed * complicated by underlying COPD * imaging noted * IV diuretics PRN for fluid overload (follow CXR results) * failed trial of extubation (on 01/24) * successful extubation on 01/28 * Breathing comfortably. * follow respiratory status (4) Acute upper GI bleeding: Code(s): K92.2 - Gastrointestinal hemorrhage, unspecified Status: Acute Assessment and Plan: * stable/resolved * suspected based on admission events/presentation * GI following * s/p EGD (on 01/20): * noted erosive esophagitis but no varices or bleeding lesions noted * PRBC transfusion per protocol * corrected coagulopathy * IV PPI * Hemoglobin looks pretty good at 11 (5) Sepsis: Code(s): A41.9 - Sepsis, unspecified organism Status: Acute Assessment and Plan: * resolved * possibly from pneumonia (aspiration) versus UTI * follow culture data: * blood cultures (from 01/20): Staphylococcus hominis (suspect contamination) * urine culture - no growth to date * completed course of antibiotics * stable hemodynamics noted (6) Anemia: Code(s): D64.9 - Anemia, unspecified Status: Acute Assessment and Plan: * due to several issues: * due to underlying CKD * iron deficiency * #3 - GI following * liver disease * coagulopathy/thrombocytopenia * other * PRBC transfusion as needed * Epogen while hospitalized * follow trend of H/H (7) Coagulopathy: Code(s): D68.9 - Coagulation defect, unspecified Status: Acute Assessment and Plan: * probably secondary to liver cirrhosis * complicated by thrombocytopenia also related to liver disease * s/p cryoprecipitate, platelets, and FFP transfusion * follow platelet count and INR (8) Alcoholic cirrhosis of liver with ascites: Code(s): K70.31 - Alcoholic cirrhosis of liver with ascites Status: Acute Assessment and Plan: * as evidence by admission CT/imaging findings * presumably partly related to alcohol intake * GI following (9) Transaminitis: Code(s): R74.01 - Elevation of levels of liver transaminase levels Status: Acute Assessment and Plan: * noted by admission labs * suspect secondary to/consistent with with alcoholic liver disease * appear to be stabilizing * Hepatitis C antibody screen is positive -- RNA quantitative is [id number] * will need follow-up as an outpatient basis for hepatitis C infection (10) Acetabular fracture: Qualifiers: Encounter type: initial encounter Fracture alignment: nondisplaced Fra cture type: closed Laterality: right Sublocation of acetabulum: unspecified portion of acetabulum Qualified Code(s): S32.401A - Unspecified fracture of right acetabulum, initial encounter for closed fracture Code(s): S32.409A - Unspecified fracture of unspecified acetabulum, initial encounter for closed fracture Status: Acute Assessment and Plan: * as noted by admission CT imaging: * fractures of the right anterior acetabulum at the junction of the right superior pubic ramus and of the right inferior pubic ramus, acute to subacute in nature * Orthopedic Surgery recommendations * repeat imaging X-rays noted: healing right acetabular and inferior pubic rami fractures with callus formation (11) Distal radial fracture: Qualifiers: Encounter type: subsequent encounter Fracture type: closed Fracture morphology: unspecified fracture morphology Laterality: left Fracture healing: with nonunion Qualified Code(s): S52.502K - Unspecified fracture of the lower end of left radius, subsequent encounter for closed fracture with nonunion Code(s): S52.509A - Unspecified fracture of the lower end of unspecified radius, initial encounter for closed fracture Status: Acute Assessment and Plan: * apparently chronic in nature by X-rays * Orthopedic Surgery recommendations reviewed (12) Alcohol abuse: Code(s): F10.10 - Alcohol abuse, uncomplicated Status: Acute Assessment and Plan: * known history * on thiamine and folate Will continue to follow. (13) Hypertension: Code(s): I10 - Essential (primary) hypertension Status: Acute Assessment and Plan: the patient is on amlodipine 5mg a day and hydralazine 25mg every 8hours. Will increase the amlodipine to 10 Subjective Date/time seen: 01/30/25 11:17 Interval history: Patient is lying in bed. Comfortable. Working on her breakfast Exam Narrative: General: frail and cachectic female in NAD Heart: normal S1 and S2; no rub or gallop Lungs: coarse breath sounds; decreased throughout Abdomen: soft, nontender, nondistended, positive bowel sounds Extremities: no cyanosis or clubbing; trace edema Skin: no rash or subcu nodules Objective Data Vital Signs Vital Signs: Vital Signs - 24 hr 01/29/25 12:00 01/29/25 12:00 01/29/25 12:00 Temperature 98.6 F Pulse Rate 85 84 Respiratory Rate 28 H Blood Pressure 151/89 H Pulse Oximetry 96 96 Oxygen Delivery High Flow Nasal Cannula Oxygen Flow Rate 2 Fraction of Inspired Oxygen 01/29/25 13:18 01/29/25 13:48 01/29/25 13:48 Temperature 98.1 F Pulse Rate 89 92 92 Respiratory Rate 23 H 20 20 Blood Pressure 151/90 H Pulse Oximetry 97 95 Oxygen Delivery High Flow Nasal Cannula Oxygen Flow Rate 1 Fraction of Inspired Oxygen 01/29/25 14:00 01/29/25 15:00 01/29/25 16:00 Temperature 98.8 F Pulse Rate 92 90 89 Respiratory Rate 25 H Blood Pressure 130/81 Pulse Oximetry 92 Oxygen Delivery Oxygen Flow Rate Fraction of Inspired Oxygen 01/29/25 17:00 01/29/25 18:00 01/29/25 20:00 Temperature Pulse Rate 98 100 102 H Respiratory Rate Blood Pressure 151/89 H Pulse Oximetry 91 Oxygen Delivery Oxygen Flow Rate Fraction of Inspired Oxygen 01/29/25 20:37 01/29/25 20:50 01/29/25 20:51 Temperature Pulse Rate 84 94 Respiratory Rate 20 20 Blood Pressure Pulse Oximetry 96 Oxygen Delivery High Flow Nasal Cannula Oxygen Flow Rate 2 Fraction of Inspired Oxygen 01/29/25 21:00 01/29/25 21:27 01/29/25 22:00 Temperature 98.1 F Pulse Rate 100 100 110 H Respiratory Rate 22 H 22 H Blood Pressure 147/92 H Pulse Oximetry 97 97 Oxygen Delivery Nasal Cannula Oxygen Flow Rate 2 Fraction of Inspired Oxygen 01/30/25 00:00 01/30/25 00:00 01/30/25 00:40 Temperature 99.1 F Pulse Rate 121 H 120 H 121 H Respiratory Rate 20 20 Blood Pressure 184/76 H Pulse Oximetry 92 92 Oxygen Delivery Nasal Cannula Oxygen Flow Rate 2 Fraction of Inspired Oxygen 01/30/25 01:05 01/30/25 01:15 01/30/25 02:00 Temperature Pulse Rate 84 124 H 105 H Respiratory Rate 19 Blood Pressure Pulse Oximetry 97 Oxygen Delivery Oxygen Flow Rate Fraction of Inspired Oxygen 01/30/25 02:15 01/30/25 02:20 01/30/25 02:25 Temperature Pulse Rate 82 Respiratory Rate 20 Blood Pressure 179/105 H 180/104 H Pulse Oximetry Oxygen Delivery Oxygen Flow Rate Fraction of Inspired Oxygen 01/30/25 02:30 01/30/25 02:35 01/30/25 02:40 Temperature 101.8 F H Pulse Rate 88 89 Respiratory Rate 20 19 Blood Pressure Pulse Oximetry 97 Oxygen Delivery Oxygen Flow Rate Fraction of Inspired Oxygen 01/30/25 02:50 01/30/25 03:38 01/30/25 03:50 Temperature 101.8 F H 98.4 F Pulse Rate 104 H Respiratory Rate 34 H Blood Pressure Pulse Oximetry 93 Oxygen Delivery BiPAP Oxygen Flow Rate Fraction of Inspired Oxygen 28 01/30/25 04:00 01/30/25 04:00 01/30/25 04:55 Temperature 98.4 F Pulse Rate 104 H 106 H 90 Respiratory Rate 34 H 16 Blood Pressure 156/84 H Pulse Oximetry 93 96 Oxygen Delivery Oxygen Flow Rate Fraction of Inspired Oxygen 01/30/25 06:00 01/30/25 07:59 01/30/25 08:00 Temperature 98.3 F Pulse Rate 99 102 H 106 H Respiratory Rate 18 Blood Pressure 167/90 H Pulse Oximetry 96 Oxygen Delivery Oxygen Flow Rate Fraction of Inspired Oxygen 01/30/25 08:00 01/30/25 08:14 01/30/25 08:20 Temperature Pulse Rate 108 H Respiratory Rate 18 Blood Pressure Pulse Oximetry 96 98 Oxygen Delivery High Flow Therapy with Na High Flow Therapy with Na Oxygen Flow Rate 2 2 Fraction of Inspired Oxygen 01/30/25 08:22 01/30/25 10:00 Temperature Pulse Rate 104 H Respiratory Rate Blood Pressure Pulse Oximetry 96 Oxygen Delivery High Flow Therapy with Na Oxygen Flow Rate 1 Fraction of Inspired Oxygen Intake/Output Intake/Output: Intake & Output 01/27/25 01/28/25 01/29/25 01/30/25 23:59 23:59 23:59 23:59 Intake Total 1016 1030 240 0 Output Total 1300 1150 650 450 Balance -284 -120 -410 -450 Meds/Results Medications: Active Medications Generic Name Dose Route Start Last Admin Trade Name Freq PRN Reason Stop Dose Admin Acetaminophen 650 mg 01/23/25 14:11 01/30/25 08:27 Acetaminophen 325 Mg Tablet FEED TUBE 650 mg Q4H PRN Administration Fever 1-3 Albuterol/Ipratropium 3 ml 01/26/25 14:00 01/30/25 08:10 Ipratropium 0.5 Mg/Albuterol Sulfate 2.5 Mg Ampul.Neb 3 Ml INHALATION 3 ml Q6HRT MEENA Administration Alteplase, Recombinant 2 mg 01/27/25 14:40 01/27/25 16:10 Alteplase 2 Mg Vial (Cathflo) IV PUSH 2 mg ONCE PRN Administration Line Occlusion Amlodipine Besylate 5 mg 01/25/25 09:00 01/30/25 08:27 Amlodipine Besylate 5 Mg Tablet FEED TUBE 5 mg DAILY MEENA Administration Budesonide 0.5 mg 01/26/25 10:00 01/30/25 08:12 Budesonide Respule Neb 0.5 Mg/2 Ml Amp INHALATION 0.5 mg Q12HRT MEENA Administration Dextrose 12.5 gm 01/20/25 08:23 01/29/25 11:47 Dextrose 50% 25 Gm/50 Ml Syringe IV PUSH 12.5 gm PRN PRN Administration Hypoglycemia Protocol Epoetin Emil-epbx 10,000 units 01/23/25 09:00 01/30/25 08:45 Epoetin Emil-Epbx 10,000 Units/Ml Vial SUB-Q 10,000 units TUTHSA@09 MEENA Administration Folic Acid 1 mg 01/20/25 09:00 01/30/25 08:45 Folic Acid 1 Mg/0.2 Ml Inj IV PUSH 1 mg QAM MEENA Administration Glucagon 1 mg 01/20/25 08:23 Glucagon For Inj 1 Mg Vial IM PRN PRN Hypoglycemia Protocol Glucose 15 gm 01/20/25 08:23 Glucose Oral Gel 15 Gm Of Glucse In 37.5 Gm Tube PO PRN PRN Hypoglycemia Protocol Hydralazine HCl 20 mg 01/24/25 03:34 01/30/25 02:48 Hydralazine Hcl 20 Mg/Ml Vial IV PUSH 20 mg Q4H PRN Administration Hypertension Hydralazine HCl 25 mg 01/27/25 07:40 01/30/25 06:01 Hydralazine Hcl 25 Mg Tablet PO 25 mg Q8HR MEENA Administration Dextrose 1,000 mls @ 100 mls/hr 01/20/25 08:23 Dextrose 5% 1,000 Ml IVPB PRN PRN Hypoglycemia Protocol Ceftriaxone Sodium 2 gm/ 100 mls @ 200 mls/hr 01/30/25 11:00 Sodium Chloride IVPB Q24H MEENA Metronidazole 500 mg in 100 mls @ 100 mls/hr 01/30/25 10:25 Flagyl 500 Mg/Iso Soln 100 Ml IVPB Q8H MEENA Vancomycin HCl 500 mg in 100 mls @ 100 mls/hr 01/30/25 10:36 Vancomycin 500 Mg/Ns 100 Ml IVPB 01/30/25 11:35 ONCE ONE Metronidazole 500 mg in 100 mls @ 100 mls/hr 01/30/25 12:00 Flagyl 500 Mg/Iso Soln 100 Ml IVPB 01/30/25 12:59 ONCE ONE Insulin Aspart 3 - 6 units 01/20/25 12:00 01/30/25 06:00 Insulin Aspart (*Bkc) 100 Units/Ml SUB-Q Not Given Q6HR [facility] Protocol Labetalol HCl 20 mg 01/23/25 09:31 01/30/25 01:15 Labetalol Hcl Inj 100 Mg/20 Ml Vial IV PUSH 20 mg Q4H PRN Administration SBP > 160 and HR> 60 -1st choice Multi-Ingred Cream/Lotion/Oil/Oint 1 applic 01/22/25 21:00 01/30/25 08:27 Mineral Oil/White Petrolatum Ointment EACH EYE Not Given Q12HR [facility] Pantoprazole Sodium 40 mg 01/21/25 09:00 01/30/25 08:27 Pantoprazole Sodium Iv 40 Mg Vial IV PUSH 40 mg Q12HR MEENA Administration Perflutren Lipid Microsphere 0 ml 01/29/25 14:20 Perflutren Lipid Microspheres 1.5 Ml Vial Diluted To 10 Ml Total Volume IV PUSH 02/01/25 14:20 ONCE PRN adequate visualization Protocol Thiamine HCl 100 mg 01/20/25 09:00 01/30/25 08:27 Thiamine Hcl 200 Mg/2 Ml Vial IV PUSH 100 mg QAM MEENA Administration Vancomycin HCl 1 each 01/30/25 10:25 1st Dose Sent To Floor IVPB PER PROTOCOL [facility] Radiology Results: ITS Impressions Abdomen X-Ray 01/20/25 05:42 Impression: NG tube in satisfactory position. Small left pleural effusion. Chest/Abdomen/Pelvis CT 01/20/25 05:48 Impression: Moderate to large left pleural effusion with extensive left lower lobe atelectasis. Small right pleural effusion. 9 mm spiculated nodule in the right lower lobe, as detailed above, indeterminate. CT scan in 3 months advised. Consider PET/CT or attempted tissue sampling as indicated. Moderate emphysema. No definite evidence for GI bleed, but evaluation is limited without IV contrast and with oral contrast on board. Consider follow-up CT angiogram of the bowel to further evaluate for GI bleed, as indicated. Moderate abdominopelvic ascites. T12 compression fracture, somewhat age indeterminate, but new since 06/20/2024. Fractures of the right anterior acetabulum at the junction of the right superior pubic ramus and of the right inferior pubic ramus, acute to subacute in nature. Head CT 01/20/25 06:13 Impression: No intracranial hemorrhage, mass, or acute infarct. Atrophy and chronic white matter changes, as above. Wrist X-Ray 01/20/25 06:13 Impression: Probable chronic fracture deformities of the distal radius and ulnar styloid process, as detailed above. No definite acute fracture. Renal Ultrasound 01/21/25 08:42 IMPRESSION: 1. Medical renal disease. 2. Mild bilateral hydronephrosis. No nephrolithiasis. Hip/Pelvis X-Ray 01/24/25 11:12 Impression: 1: Healing right acetabular and inferior pubic rami fractures with callus formation. Chest X-Ray 01/28/25 05:45 Impression: 1: Retrocardiac airspace consolidation which may represent atelectasis or pneumonia. No significant change. Modified Barium Swallow 01/29/25 13:33 IMPRESSION: Pharyngeal dysphagia with laryngeal penetration and aspiration with thin liquids. Please correlate with speech pathologist findings and specific feeding recommendations. Chest CT 01/29/25 16:18 IMPRESSION: 1. Grossly stable size and configuration of the 0.9 cm cavitary lesion in the superior segment of the right lower lobe. Differential includes but is not limited to an infectious process, necrotic malignancy or septic pulmonary embolus. Consider a biopsy or PET/CT. Short-term follow-up is recommended. 2. Moderate-sized left-sided pleural effusion. 3. Small right-sided pleural effusion. 4. Moderate-sized consolidation in the left lower lobe with air bronchograms. Recommend follow-up to resolution. 5. There is contrast within the stomach and proximal small bowel. 6. There is nonspecific fluid and fat stranding in the upper abdomen similar to the CT study from 01/20/2025. Labs Labs: Laboratory Results - last 24 hr 01/29/25 01/29/25 01/29/25 11:44 12:01 12:23 WBC RBC Hgb Hct MCV MCH MCHC RDW Plt Count MPV Immature Gran % (Auto) Neut % (Auto) Lymph % (Auto) [place] % (Auto) Eos % (Auto) Baso % (Auto) Lymph # (Auto) [place] # (Auto) Eos # (Auto) Baso # (Auto) Abs Immat Gran (auto) Absolute Neuts (auto) Absolute Nucleated RBC Total Counted Neutrophils % (Manual) Band Neutrophils % Lymphocytes % (Manual) Monocytes % (Manual) Nucleated RBC % Abs Neuts (Manual) Abs Lymphs (Manual) Abs Monocytes (Manual) Smudge Cells Platelet Estimate % Immature Plt Fraction Anisocytosis Microcytosis Schistocytes Sodium Potassium Chloride Carbon Dioxide Anion Gap BUN Creatinine Estim Creat Clear Calc Estimated GFR Glucose POC Capillary Glucose 74 138 H 103 Calcium Phosphorus Magnesium Total Bilirubin AST ALT Alkaline Phosphatase Total Protein Albumin Triglycerides 01/29/25 01/29/25 01/30/25 18:17 23:56 03:45 WBC 12.3 H RBC 3.71 L Hgb 11.0 L Hct 37.0 MCV 99.7 MCH 29.6 MCHC 29.7 L RDW 23.3 H Plt Count 37 L MPV 12.4 H Immature Gran % (Auto) Not Reportable Neut % (Auto) Not Reportable Lymph % (Auto) Not Reportable [place] % (Auto) Not Reportable Eos % (Auto) Not Reportable Baso % (Auto) Not Reportable Lymph # (Auto) Not Reportable [place] # (Auto) Not Reportable Eos # (Auto) Not Reportable Baso # (Auto) Not Reportable Abs Immat Gran (auto) Not Reportable Absolute Neuts (auto) Not Reportable Absolute Nucleated RBC Not Reportable Total Counted 100 Neutrophils % (Manual) 90 H Band Neutrophils % 2 Lymphocytes % (Manual) 4.0 L Monocytes % (Manual) 4 Nucleated RBC % Not Reportable Abs Neuts (Manual) 11.31 H Abs Lymphs (Manual) 0.49 L Abs Monocytes (Manual) 0.49 Smudge Cells Present Platelet Estimate Decreased % Immature Plt Fraction 2.7 Anisocytosis 1+ Microcytosis 1+ Schistocytes None seen Sodium 148 H Potassium 4.0 Chloride 115 H Carbon Dioxide 26 Anion Gap 7 BUN 60 H Creatinine 2.13 H Estim Creat Clear Calc 16 Estimated GFR 24 L Glucose 103 POC Capillary Glucose 116 H 99 Calcium 8.2 L Phosphorus 3.3 Magnesium 1.9 Total Bilirubin 1.6 H AST 28 ALT 24 Alkaline Phosphatase 91 Total Protein 6.0 L Albumin 3.3 L Triglycerides 133 01/30/25 05:47 WBC RBC Hgb Hct MCV MCH MCHC RDW Plt Count MPV Immature Gran % (Auto) Neut % (Auto) Lymph % (Auto) [place] % (Auto) Eos % (Auto) Baso % (Auto) Lymph # (Auto) [place] # (Auto) Eos # (Auto) Baso # (Auto) Abs Immat Gran (auto) Absolute Neuts (auto) Absolute Nucleated RBC Total Counted Neutrophils % (Manual) Band Neutrophils % Lymphocytes % (Manual) Monocytes % (Manual) Nucleated RBC % Abs Neuts (Manual) Abs Lymphs (Manual) Abs Monocytes (Manual) Smudge Cells Platelet Estimate % Immature Plt Fraction Anisocytosis Microcytosis Schistocytes Sodium Potassium Chloride Carbon Dioxide Anion Gap BUN Creatinine Estim Creat Clear Calc Estimated GFR Glucose POC Capillary Glucose 94 Calcium Phosphorus Magnesium Total Bilirubin AST ALT Alkaline Phosphatase Total Protein Albumin Triglycerides
--- NOTE | 2025-01-30 11:26 | PCPTNOTE ---
Checked with nursing to see if patient was okay to be seen, when asked nursing about T12 wedge compression fx she checked with hospitalists and they want to hold PT until ortho or neurosurgery has checked on the fx. Physical Therapy will check back tomorrow.
[2025-01-30] MEDS: metroNIDAZOLE 500 MG/ISO 100ML 500 MG/100 ML BAG 100 MG IVPB ×2 (11:49→21:23)
[2025-01-30] MEDS: cefTRIAXone 2 GM in SODIUM CHLORIDE 0.9% IV 100 ML 200 ML IVPB (11:49)
[2025-01-30] MEDS: SODIUM CHLORIDE 0.45% 1,000 ML 100 ML IV CONT ×2 (11:56→21:26)
--- NOTE | 2025-01-30 13:30 | PCOTNOTE ---
Awaiting consult to neurosurgery for recommendations regarding T-12 compression fx. hospitalist and nurse aware.
[2025-01-30] MEDS: VANCOMYCIN 500 MG/NS 100 ML 500 MG/100 ML BAG 100 MG IVPB (14:08)
[2025-01-30] MEDS: MINERAL OIL/WHITE PETROLATUM OINTMENT 1 APPLIC EACH EYE (21:21)
[2025-01-31] VITALS (25 sets, daily range): BP systolic 129–170; BP diastolic 73–99; PULSE 72–101; RESP 16–22; TEMP 36.4–37.1; O2SAT 90–97
[2025-01-31] MEDS: IPRATROPIUM 0.5 MG/ALBUTEROL SULFATE 2.5 MG AMPUL.NEB 3 ML INHALATION ×4 (02:07→20:39)
[2025-01-31 04:11] LABS: Hematocrit 38.9 % (37.0-47.0); Hemoglobin 11.7 g/dL (12.0-15.0); Mean Corpuscular HGB Conc 30.1 g/dl (32-36); Mean Corpuscular Hemoglobin 30.2 pg (26-34); Mean Corpuscular Volume 100.3 fl (80-100); Platelet Count Result 40 k/mm3 (150-375); Red Blood Count 3.88 M/mm3 (4.2-5.4); White Blood Count 10.1 K/mm3 (4.5-10.0)
[2025-01-31 04:36] LABS: Albumin Level 3.2 g/dL (3.5-5.1); Anion Gap 9 mmol/L (4-12); Blood Urea Nitrogen 55 mg/dL (7-17); Calcium 8.2 mg/dL (8.4-10.2); Carbon Dioxide 23 mmol/L (22-30); Chloride 112 mmol/L (98-107); Estimated CRCL calculation 18 ml/min; Estimated Glomerular Filt Rate 26; Glucose 98 mg/dL (65-110); Potassium 3.9 mmol/L (3.4-5.0); Sodium 144 mmol/L (137-145)
[2025-01-31] MEDS: metroNIDAZOLE 500 MG/ISO 100ML 500 MG/100 ML BAG 100 MG IVPB ×3 (05:49→21:47)
[2025-01-31] MEDS: BUDESONIDE RESPULE NEB 0.5 MG/2 ML AMP INHALATION ×2 (07:48→20:39)
[2025-01-31] MEDS: PANTOPRAZOLE SODIUM IV 40 MG VIAL IV PUSH ×2 (08:02→21:48)
[2025-01-31] MEDS: FOLIC ACID 1 MG/0.2 ML INJ IV PUSH (08:02)
[2025-01-31] MEDS: THIAMINE HCL 200 MG/2 ML VIAL 100 MG IV PUSH (08:02)
[2025-01-31] MEDS: ACETAMINOPHEN 325 MG TABLET 650 MG FEED TUBE (08:02)
[2025-01-31] MEDS: SODIUM CHLORIDE 0.45% 1,000 ML 100 ML IV CONT ×2 (08:03→21:46)
--- NOTE | 2025-01-31 08:56 | P.PNIM_ITS ---
Progress Note: A&P Assessment and Plan (1) Acute hypoxic respiratory failure: Code(s): J96.01 - Acute respiratory failure with hypoxia Status: Acute Assessment and Plan: Acute respiratory failure secondary to aspiration pneumonia pleural effusion upper GI bleed with underlying COPD 01/20: Intubated in the ER on admission 01/24 patient was successfully extubated, Post extubation patient was tachypneic. She was placed on BiPAP but her tachypnea and work of breathing worsened and she complained of being short of breath. Was reintubate about an hour post extubation on the same day 01/24: Reintubated -01/28: Extubated successfully to AVAPS. Tolerated AVAPS all day and all night -placed on 2 L nasal cannula with adequate O2 sats and no respiratory distress -will continue BiPAP/AVAPS while pt is sleeping -01/29: pulmonology will be consulted -continue bronchodilators -BiPAP to avoid reintubation -01/30: High-flow nasal cannula -started on ceftriaxone, Flagyl and vancomycin due to sepsis -01/31: Continue same antibiotic regimen (2) Acute upper GI bleeding: Code(s): K92.2 - Gastrointestinal hemorrhage, unspecified Status: Acute Assessment and Plan: Acute upper GI bleed 01/20 EGD showed reflux/erosive/ulcerative esophagitis and hiatal hernia, no variceal bleed Status post transfusion of multiple units of PRBC Coagulopathy cryo and FFP Hemoglobin appears to be now stable. continue monitoring hemoglobin and transfuse additional PRBC if needed continue IV PPI. Octreotide was discontinued GI following -01/31: Hemoglobin stable at 11.7. Continue PPI (3) Transaminitis: Code(s): R74.01 - Elevation of levels of liver transaminase levels Status: Acute Assessment and Plan: AST and ALT mildly elevated likely consistent with alcoholic liver disease. Hepatitis C antibody screen is positive. RNA quantitative is [id number] -LFTs have normalized, continue to monitor (4) Alcoholic cirrhosis of liver with ascites: Code(s): K70.31 - Alcoholic cirrhosis of liver with ascites Status: Acute Assessment and Plan: Patient has cirrhosis from alcohol liver disease with CT scan showing ascites (5) Acute kidney injury superimposed on stage 4 chronic kidney disease: Code(s): N17.9 - Acute kidney failure, unspecified; N18.4 - Chronic kidney disease, stage 4 (severe) Status: Acute Assessment and Plan: Baseline creatinine in mid 2 Patient was given IV fluids but now off due to concern of volume overload and patient has also received significant amount of blood products. Monitor urine output electrolytes and creatinine CT scans not show any obstruction or stone Renal ultrasound showed mild bilateral hydronephrosis without any stones Appreciate nephrology following the patient. Patient responded well to Lasix for volume overload Chest x-ray shows bilateral infiltrates, possible edema, pneumonia or atelectasis, will give additional dose of Lasix today phosphorus has normalized -creatinine is improving -01/31: Patient started on of normal saline due to rise in creatinine and sodium (6) Coagulopathy: Code(s): D68.9 - Coagulation defect, unspecified Status: Acute Assessment and Plan: Coagulopathy secondary to cirrhosis and sepsis Patient received cryo and platelets, and FFP (7) Sepsis: Code(s): A41.9 - Sepsis, unspecified organism Status: Acute Assessment and Plan: 01/30: Patient started on ceftriaxone, Flagyl and vancomycin due to sepsis Reviewed CT chest which shows cavitary lesion in right lower lobe. ID consulted Sepsis likely secondary to pneumonia which could be aspiration Blood cultures grew Staph hominis which is likely contaminant. (8) Anemia: Code(s): D64.9 - Anemia, unspecified Status: Acute Assessment and Plan: Likely multifactorial anemia from iron deficiency and anemia of chronic kidney disease along with acute blood loss Patient received a dose of iron And she has received for units of PRBC. Hemoglobin appears to have stabilized Monitor and transfuse additional if needed Management of GI bleeding as above Epogen per Nephrology (9) Thrombocytopenia: Code(s): D69.6 - Thrombocytopenia, unspecified Status: Acute Assessment and Plan: Thrombocytopenia likely combination of sepsis and cirrhosis. 01/20 Platelet transfusion -continue to monitor platelet level (10) Alcohol abuse: Code(s): F10.10 - Alcohol abuse, uncomplicated Status: Acute Assessment and Plan: History of alcohol abuse. Off all sedation Continue thiamine and folic acid (11) Severe protein-calorie malnutrition: Code(s): E43 - Unspecified severe protein-calorie malnutrition Status: Acute Assessment and Plan: Appears Malnourished and cachectic. -off tube feeds, -patient had a modified barium swallow test done on 01/29, speech therapy recommended: pureed diet level 4 and mildly thick liquids level 2. ST to treat and reassess pt's ability to manage solids if dentures are found (12) Acetabular fracture: Qualifiers: Encounter type: initial encounter Fracture alignment: nondisplaced Fracture type: closed Laterality: right Sublocation of acetabulum: unspecified portion of acetabulum Qualified Code(s): S32.401A - Unspecified fracture of right acetabulum, initial encounter for closed fracture Code(s): S32.409A - Unspecified fracture of unspecified acetabulum, initial encounter for closed fracture Status: Acute Assessment and Plan: Orthopedics evaluate the patient . No further recommendations at this time (13) Distal radial fracture: Qualifiers: Encounter type: subsequent encounter Fracture healing: with nonunion Fracture morphology: unspecified fracture morphology Fracture type: closed Laterality: left Qualified Code(s): S52.502K - Unspecified fracture of the lower end of left radius, subsequent encounter for closed fracture with nonunion Code(s): S52.509A - Unspecified fracture of the lower end of unspecified radius, initial encounter for closed fracture Status: Acute Assessment and Plan: seen by orthopedics. Splint removed as per recommendations. Subjective Date/time seen: 01/31/25 08:56 Interval history: Interval HPI: 60-year-old female with a past medical history of alcoholism, cirrhosis, chronic kidney disease stage IV, chronic encephalopathy, tobacco abuse and severe protein calorie malnutrition who presented to the ER via EMS for GI bleed. Patient is a poor historian and neglects taking care of her health and seeks medical attention until it worsens. Patient had recently sustained fracture of the right hip and Orthopedics was consulted. Orthopedics evaluated the patient and advised for left distal radius fracture believe this is a stable fracture and splint can be removed and with regards to her acetabular fracture Ortho will order pelvic x-rays and pending recommendation from Ortho. Patient underwent EGD on 01/20 had evidence of erosive esophagitis but no varices.Patient also has a history of transaminitis and positive for hepatitis-C. Patient was extubated on 01/28. During current hospitalization patient has been treated for acute hypoxic respiratory failure, upper GI bleed, transaminitis, coagulopathy, anemia and thrombocytopenia. 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 01/30 patient is sepsis due to elevated heart rate and WBC. ID was consulted in regards to cavitary lesion. He agrees to start ceftriaxone, Flagyl and vancomycin. Patient prognosis is guarded. Consulted hospice. 01/29: Patient is currently in IMU. The patient was downgraded from the ICU today. The patient had a prolonged intubation and was extubated the day before yesterday?the patient is at high risk for re-intubation. Pulmonology was consulted and started on noninvasive ventilation for 2 days to prevent re- intubation. Patient will undergo ABG 24 hours off of NIV. The patient also has a lung cavity. Repeat CT chest to assess lung cavity. If the lung cavity persists, it will be treated with Augmentin for 2 weeks. An echocardiogram is ordered. Patient has a remote history of a large pleural effusion, possibly from ascites/cirrhosis. The patient's creatinine level is around 2, but her baseline in June 2024 was around 1.5. Patient will undergo gentle diuresis 01/30: ID was consulted due to sepsis/cavitary lesion on the right lower lobe. Patient started on ceftriaxone, Flagyl and vancomycin. Patient prognosis is guarded.Called POA and had a long discussion with POA ,she agrees to talk to hospice and keep her in full code. 01/31: Patient was evaluated by Nephrology and started on of normal saline due to rising creatinine and sodium. In regards to acute respiratory failure/cavitary lesion on the right lower lobe patient started on ceftriaxone, Flagyl and vancomycin. Hemoglobin stable at 11 and continue PPI. In regards to low platelet possibly due to chronic alcohol liver disease.Orthopedics evaluated the patient and advised for left distal radius fracture believe this is a stable fracture and splint can be removed and with regards to her acetabular fracture Ortho will order pelvic x-rays and pending recommendation from Ortho. Ordered ABG and apnea link as per pulmonology request Review of Systems Review of Systems: All systems reviewed & are unremarkable except as noted in HPI and below ROS unobtainable: Yes unobtainable due to endotracheal tube, unobtainable due to medical condition and unobtainable due to mental status Exam Narrative: General: Pt is cachectic, appears older than her age, is awake and alert in no distress HEENT: Pupils are equal and reactive, sclera is clear, Lungs/Chest: Clear to auscultation bilaterally, decreased at bases, no wheezing, adequate air entry Cardiac: RRR. Normal S1 S2. No murmurs Abdomen: Normoactive bowel sounds. Soft. NT. ND. Extremities: No clubbing, cyanosis or edema. Pedal pulses are intact : Mclean in place Neurologic: Patient is awake, alert, able to answer questions, follows simple commands, her voice is soft Skin: NO skin lesions Objective Data Vital Signs Vital Signs: Vital Signs - 24 hr 01/30/25 10:00 01/30/25 11:40 01/30/25 12:00 Temperature 97.8 F Pulse Rate 104 H 89 Respiratory Rate 20 Blood Pressure 132/63 Pulse Oximetry 94 94 Oxygen Delivery Nasal Cannula Oxygen Flow Rate 2 01/30/25 12:00 01/30/25 13:45 01/30/25 13:52 Temperature Pulse Rate 101 H 102 H 101 H Respiratory Rate 18 16 Blood Pressure Pulse Oximetry Oxygen Delivery Oxygen Flow Rate 01/30/25 14:00 01/30/25 16:00 01/30/25 16:00 Temperature 97.7 F Pulse Rate 100 100 Respiratory Rate 18 Blood Pressure 165/97 H Pulse Oximetry 96 94 Oxygen Delivery Nasal Cannula Oxygen Flow Rate 3 01/30/25 16:00 01/30/25 18:00 01/30/25 20:00 Temperature 97.5 F L Pulse Rate 99 101 H 98 Respiratory Rate 22 H Blood Pressure 179/105 H Pulse Oximetry 96 Oxygen Delivery Oxygen Flow Rate 01/30/25 20:00 01/30/25 20:16 01/30/25 20:20 Temperature Pulse Rate 98 98 Respiratory Rate 16 Blood Pressure Pulse Oximetry 94 Oxygen Delivery High Flow Therapy with Na Oxygen Flow Rate 3 01/30/25 20:22 01/30/25 21:06 01/30/25 21:24 Temperature Pulse Rate 100 98 97 Respiratory Rate 16 22 H Blood Pressure Pulse Oximetry 96 Oxygen Delivery Nasal Cannula Oxygen Flow Rate 3 01/30/25 22:00 01/30/25 23:00 01/31/25 00:00 Temperature 98.7 F Pulse Rate 82 96 92 Respiratory Rate 20 20 Blood Pressure 158/90 H Pulse Oximetry 96 90 Oxygen Delivery Oxygen Flow Rate 01/31/25 00:00 01/31/25 00:21 01/31/25 01:28 Temperature Pulse Rate 91 92 94 Respiratory Rate 20 Blood Pressure Pulse Oximetry 90 Oxygen Delivery Nasal Cannula Oxygen Flow Rate 2 01/31/25 02:07 01/31/25 02:14 01/31/25 03:51 Temperature Pulse Rate 97 101 H 96 Respiratory Rate 16 16 Blood Pressure Pulse Oximetry Oxygen Delivery Oxygen Flow Rate 01/31/25 04:00 01/31/25 04:00 01/31/25 04:00 Temperature 98.1 F Pulse Rate 80 98 98 Respiratory Rate 20 20 Blood Pressure 170/99 H Pulse Oximetry 93 93 Oxygen Delivery Nasal Cannula Oxygen Flow Rate 3 01/31/25 05:12 01/31/25 07:49 01/31/25 07:49 Temperature Pulse Rate 90 85 85 Respiratory Rate 20 20 Blood Pressure Pulse Oximetry 97 Oxygen Delivery Nasal Cannula Oxygen Flow Rate 3 01/31/25 08:00 01/31/25 08:02 Temperature 97.8 F Pulse Rate 89 88 Respiratory Rate 20 20 Blood Pressure 157/95 H Pulse Oximetry 97 Oxygen Delivery Oxygen Flow Rate Intake/Output Intake/Output: Intake & Output 01/28/25 01/29/25 01/30/25 01/31/25 23:59 23:59 23:59 23:59 Intake Total 6496 935 6313 1200 Output Total 8988 464 4056 350 Balance -120 -410 660 850 Meds/Results Medications: Active Medications Generic Name Dose Route Start Last Admin Trade Name Freq PRN Reason Stop Dose Admin Acetaminophen 650 mg 01/23/25 14:11 01/31/25 08:02 Acetaminophen 325 Mg Tablet FEED TUBE 650 mg Q4H PRN Administration Fever 1-3 Albuterol/Ipratropium 3 ml 01/26/25 14:00 01/31/25 07:48 Ipratropium 0.5 Mg/Albuterol Sulfate 2.5 Mg Ampul.Neb 3 Ml INHALATION 3 ml Q6HRT MEENA Administration Amlodipine Besylate 10 mg 01/31/25 09:00 01/31/25 08:02 Amlodipine Besylate 10 Mg Tablet FEED TUBE 10 mg DAILY MEENA Administration Budesonide 0.5 mg 01/26/25 10:00 01/31/25 07:48 Budesonide Respule Neb 0.5 Mg/2 Ml Amp INHALATION 0.5 mg Q12HRT MEENA Administration Dextrose 12.5 gm 01/20/25 08:23 01/29/25 11:47 Dextrose 50% 25 Gm/50 Ml Syringe IV PUSH 12.5 gm PRN PRN Administration Hypoglycemia Protocol Epoetin Emil-epbx 10,000 units 01/23/25 09:00 01/30/25 08:45 Epoetin Emli-Epbx 10,000 Units/Ml Vial SUB-Q 10,000 units TUTHSA@09 MEENA Administration Folic Acid 1 mg 01/20/25 09:00 01/31/25 08:02 Folic Acid 1 Mg/0.2 Ml Inj IV PUSH 1 mg QAM MEENA Administration Glucagon 1 mg 01/20/25 08:23 Glucagon For Inj 1 Mg Vial IM PRN PRN Hypoglycemia Protocol Glucose 15 gm 01/20/25 08:23 Glucose Oral Gel 15 Gm Of Glucse In 37.5 Gm Tube PO PRN PRN Hypoglycemia Protocol Hydralazine HCl 20 mg 01/24/25 03:34 01/30/25 02:48 Hydralazine Hcl 20 Mg/Ml Vial IV PUSH 20 mg Q4H PRN Administration Hypertension Hydralazine HCl 25 mg 01/27/25 07:40 01/31/25 05:49 Hydralazine Hcl 25 Mg Tablet PO 25 mg Q8HR MEENA Administration Dextrose 1,000 mls @ 100 mls/hr 01/20/25 08:23 Dextrose 5% 1,000 Ml IVPB PRN PRN Hypoglycemia Protocol Ceftriaxone Sodium 2 gm/ 100 mls @ 200 mls/hr 01/30/25 11:00 01/30/25 12:19 Sodium Chloride IVPB Infused Q24H MEENA Infusion Metronidazole 500 mg in 100 mls @ 100 mls/hr 01/30/25 22:00 01/31/25 05:49 Flagyl 500 Mg/Iso Soln 100 Ml IVPB 100 mls/hr Q8H MEENA Administration Sodium Chloride 1,000 mls @ 100 mls/hr 01/30/25 11:25 01/31/25 08:03 Sodium Chloride 0.45% IV CONT 100 mls/hr .Q10H MEENA Administration Insulin Aspart 3 - 6 units 01/20/25 12:00 01/31/25 06:29 Insulin Aspart (*Bkc) 100 Units/Ml SUB-Q Not Given Q6HR [facility] Protocol Labetalol HCl 20 mg 01/23/25 09:31 01/31/25 03:51 Labetalol Hcl Inj 100 Mg/20 Ml Vial IV PUSH 20 mg Q4H PRN Administration SBP > 160 and HR> 60 -1st choice Multi-Ingred Cream/Lotion/Oil/Oint 1 applic 01/22/25 21:00 01/31/25 08:02 Mineral Oil/White Petrolatum Ointment EACH EYE Not Given Q12HR MEENA Pantoprazole Sodium 40 mg 01/21/25 09:00 01/31/25 08:02 Pantoprazole Sodium Iv 40 Mg Vial IV PUSH 40 mg Q12HR MEENA Administration Perflutren Lipid Microsphere 0 ml 01/29/25 14:20 Perflutren Lipid Microspheres 1.5 Ml Vial Diluted To 10 Ml Total Volume IV PUSH 02/01/25 14:20 ONCE PRN adequate visualization Protocol Thiamine HCl 100 mg 01/20/25 09:00 01/31/25 08:02 Thiamine Hcl 200 Mg/2 Ml Vial IV PUSH 100 mg QAM MEENA Administration Vancomycin HCl 1 each 01/30/25 14:19 Vancomycin For Acute Kidney Injury IVPB PRN PRN Vancomycin Protocol Radiology Results: ITS Impressions Abdomen X-Ray 01/20/25 05:42 Impression: NG tube in satisfactory position. Small left pleural effusion. Chest/Abdomen/Pelvis CT 01/20/25 05:48 Impression: Moderate to large left pleural effusion with extensive left lower lobe atelectasis. Small right pleural effusion. 9 mm spiculated nodule in the right lower lobe, as detailed above, indeterminate. CT scan in 3 months advised. Consider PET/CT or attempted tissue sampling as indicated. Moderate emphysema. No definite evidence for GI bleed, but evaluation is limited without IV contrast and with oral contrast on board. Consider follow-up CT angiogram of the bowel to further evaluate for GI bleed, as indicated. Moderate abdominopelvic ascites. T12 compression fracture, somewhat age indeterminate, but new since 06/20/2024. Fractures of the right anterior acetabulum at the junction of the right superior pubic ramus and of the right inferior pubic ramus, acute to subacute in nature. Head CT 01/20/25 06:13 Impression: No intracranial hemorrhage, mass, or acute infarct. Atrophy and chronic white matter changes, as above. Wrist X-Ray 01/20/25 06:13 Impression: Probable chronic fracture deformities of the distal radius and ulnar styloid process, as detailed above. No definite acute fracture. Renal Ultrasound 01/21/25 08:42 IMPRESSION: 1. Medical renal disease. 2. Mild bilateral hydronephrosis. No nephrolithiasis. Hip/Pelvis X-Ray 01/24/25 11:12 Impression: 1: Healing right acetabular and inferior pubic rami fractures with callus formation. Chest X-Ray 01/28/25 05:45 Impression: 1: Retrocardiac airspace consolidation which may represent atelectasis or pneumonia. No significant change. Modified Barium Swallow 01/29/25 13:33 IMPRESSION: Pharyngeal dysphagia with laryngeal penetration and aspiration with thin liquids. Please correlate with speech pathologist findings and specific feeding recommendations. Chest CT 01/29/25 16:18 IMPRESSION: 1. Grossly stable size and configuration of the 0.9 cm cavitary lesion in the superior segment of the right lower lobe. Differential includes but is not limited to an infectious process, necrotic malignancy or septic pulmonary embolus. Consider a biopsy or PET/CT. Short-term follow-up is recommended. 2. Moderate-sized left-sided pleural effusion. 3. Small right-sided pleural effusion. 4. Moderate-sized consolidation in the left lower lobe with air bronchograms. Recommend follow-up to resolution. 5. There is contrast within the stomach and proximal small bowel. 6. There is nonspecific fluid and fat stranding in the upper abdomen similar to the CT study from 01/20/2025. Labs Labs: Laboratory Results - last 24 hr 01/30/25 01/30/25 01/30/25 03:45 11:32 15:40 WBC RBC Hgb Hct MCV MCH MCHC RDW Plt Count MPV Sodium Potassium Chloride Carbon Dioxide Anion Gap BUN Creatinine Estim Creat Clear Calc Estimated GFR Glucose POC Capillary Glucose 124 H 89 Calcium Phosphorus Albumin [id number] 228 H Triglycerides 133 01/31/25 01/31/25 01/31/25 00:05 03:46 05:59 WBC 10.1 H RBC 3.88 L Hgb 11.7 L Hct 38.9 MCV 100.3 H MCH 30.2 MCHC 30.1 L RDW 22.9 H Plt Count 40 L MPV 11.3 H Sodium 144 Potassium 3.9 Chloride 112 H Carbon Dioxide 23 Anion Gap 9 BUN 55 H Creatinine 1.94 H Estim Creat Clear Calc 18 Estimated GFR 26 L Glucose 98 POC Capillary Glucose 92 94 Calcium 8.2 L Phosphorus 3.5 Albumin 3.2 L [id number] Triglycerides Quality VTE Prophylaxis VTE prophylaxis: mechanical ordered Hospitalist MIPS Advance Care Plan I have confirmed that the patient's Advanced Care Plan is present, code status is documented, or surrogate decision maker is listed in patient medical record.: Yes Medication Reconciliation I have utilized all available resources to obtain, update and review the patien ts current medications (includes all prescriptions, OTC, herbals, cannabis, and nutritional supplements).: Yes
--- NOTE | 2025-01-31 11:32 | P.PNNP_ITS ---
Progress Note: A&P Assessment and Plan (1) Acute kidney injury: Code(s): N17.9 - Acute kidney failure, unspecified Status: Acute Assessment and Plan: * creatinine started out at around 3.4 and improved to around to but now up to 2.13. * likely due to multiple issues: * prerenal factors (poor nutrition) * anemia/GI bleed * infection/sepsis (+ blood cultures) * respiratory failure * hypoxia * liver disease/cirrhosis * progression of underlying CKD * other(?) * evaluation to date noted: * renal ultrasound with CKD and mild bilateral hydronephrosis - mcqueen catheter placed * urine electrolytes prerenal - suspect due to a combination of poor oral intake AND liver disease/physiology (decreased effective circulating volume) * urine eosinophils negative * CPK low * ~ 2 grams of proteinuria * Blood pressure is 130s to 170s * Patient is not eating very well. She is on a pureed diet. she is getting some IV fluids * Sodium level is better * creatinine is better * continue half-normal saline. Will reduce rate to 75 (2) Stage 4 chronic kidney disease: Code(s): N18.4 - Chronic kidney disease, stage 4 (severe) Status: Chronic Assessment and Plan: * not entirely clear what baseline creatinine really is.... * was noted to be ~ 1.4 - 1.6mg/dl in June 2024 * however, since December 2024, has been running ~ 2.4 - 2.6mg/dl (from record review from [facility]) * most recent labs done on 01/15/25 -- creatinine up to 2.79mg/dl (ER visit at [facility] prior to leaving [facility]) * possible baseline creatinine around 2ish range?? (3) Acute hypoxic respiratory failure: Code(s): J96.01 - Acute respiratory failure with hypoxia Status: Acute Assessment and Plan: * improved * Breathing comfortably. * follow respiratory status (4) Acute upper GI bleeding: Code(s): K92.2 - Gastrointestinal hemorrhage, unspecified Status: Acute Assessment and Plan: * stable/resolved * suspected based on admission events/presentation * GI following * s/p EGD (on 01/20): * noted erosive esophagitis but no varices or bleeding lesions noted * PRBC transfusion per protocol * corrected coagulopathy * IV PPI * Hemoglobin improving, now at 11.7 (5) Sepsis: Code(s): A41.9 - Sepsis, unspecified organism Status: Acute Assessment and Plan: * resolved * possibly from pneumonia (aspiration) versus UTI * follow culture data: * blood cultures (from 01/20): Staphylococcus hominis (suspect contamination) * urine culture - no growth to date * currently on ceftriaxone and flash * stable hemodynamics noted (6) Anemia: Code(s): D64.9 - Anemia, unspecified Status: Acute Assessment and Plan: * due to several issues: * due to underlying CKD * iron deficiency * #3 - GI following * liver disease * coagulopathy/thrombocytopenia * other * PRBC transfusion as needed * hemoglobin above 11 now so I do not think we need EPO anymore * follow trend of H/H (7) Coagulopathy: Code(s): D68.9 - Coagulation defect, unspecified Status: Acute Assessment and Plan: * probably secondary to liver cirrhosis * complicated by thrombocytopenia also related to liver disease * s/p cryoprecipitate, platelets, and FFP transfusion * low platelet count continues but INR has been okay (8) Alcoholic cirrhosis of liver with ascites: Code(s): K70.31 - Alcoholic cirrhosis of liver with ascites Status: Acute Assessment and Plan: * as evidence by admission CT/imaging findings * presumably partly related to alcohol intake * GI following (9) Transaminitis: Code(s): R74.01 - Elevation of levels of liver transaminase levels Status: Acute Assessment and Plan: * noted by admission labs * suspect secondary to/consistent with with alcoholic liver disease * appear to be stabilizing * Hepatitis C antibody screen is positive -- RNA quantitative is [id number] * will need follow-up as an outpatient basis for hepatitis C infection (10) Acetabular fracture: Qualifiers: Encounter type: initial encounter Fracture alignment: nondisplaced Fracture type: closed Laterality: right Sublocation of acetabulum: unspecified portion of acetabulum Qualified Code(s): S32.401A - Unspecified fracture of right acetabulum, initial encounter for closed fracture Code(s): S32.409A - Unspecified fracture of unspecified acetabulum, initial encounter for closed fracture Status: Acute Assessment and Plan: * as noted by admission CT imaging: * fractures of the right anterior acetabulum at the junction of the right superior pubic ramus and of the right inferior pubic ramus, acute to subacute in nature * Orthopedic Surgery recommendations * repeat imaging X-rays noted: healing right acetabular and inferior pubic rami fractures with callus formation (11) Distal radial fracture: Qualifiers: Encounter type: subsequent encounter Fracture type: closed Fracture morphology: unspecified fracture morphology Laterality: left Fracture healing: with nonunion Qualified Code(s): S52.502K - Unspecified fracture of the lower end of left radius, subsequent encounter for closed fracture with nonunion Code(s): S52.509A - Unspecified fracture of the lower end of unspecified radius, initial encounter for closed fracture Status: Acute Assessment and Plan: * apparently chronic in nature by X-rays * Orthopedic Surgery recommendations reviewed (12) Alcohol abuse: Code(s): F10.10 - Alcohol abuse, uncomplicated Status: Acute Assessment and Plan: * known history * on thiamine and folate Will continue to follow. (13) Hypertension: Code(s): I10 - Essential (primary) hypertension Status: Acute Assessment and Plan: the patient is on amlodipine 5mg a day and hydralazine 25mg every 8hours. increased the amlodipine to 10 yesterday. Subjective Date/time seen: 01/31/25 11:32 Interval history: patient feels a little bit better. Not eating very much because of the pureed diet. She is getting some IV fluid Exam Narrative: General: frail and cachectic female in NAD Heart: normal S1 and S2; no rub or gallop Lungs: breath sounds symmetric and fairly clear Abdomen: soft, nontender, nondistended, positive bowel sounds Extremities: no cyanosis or clubbing; trace edema Skin: no rash Objective Data Vital Signs Vital Signs: Vital Signs - 24 hr 01/30/25 11:40 01/30/25 12:00 01/30/25 12:00 Temperature 97.8 F Pulse Rate 89 101 H Respiratory Rate 20 Blood Pressure 132/63 Pulse Oximetry 94 94 Oxygen Delivery Nasal Cannula Oxygen Flow Rate 2 01/30/25 13:45 01/30/25 13:52 01/30/25 14:00 Temperature Pulse Rate 102 H 101 H 100 Respiratory Rate 18 16 Blood Pressure Pulse Oximetry Oxygen Delivery Oxygen Flow Rate 01/30/25 16:00 01/30/25 16:00 01/30/25 16:00 Temperature 97.7 F Pulse Rate 100 99 Respiratory Rate 18 Blood Pressure 165/97 H Pulse Oximetry 96 94 Oxygen Delivery Nasal Cannula Oxygen Flow Rate 3 01/30/25 18:00 01/30/25 20:00 01/30/25 20:00 Temperature 97.5 F L Pulse Rate 101 H 98 98 Respiratory Rate 22 H Blood Pressure 179/105 H Pulse Oximetry 96 Oxygen Delivery Oxygen Flow Rate 01/30/25 20:16 01/30/25 20:20 01/30/25 20:22 Temperature Pulse Rate 98 100 Respiratory Rate 16 16 Blood Pressure Pulse Oximetry 94 Oxygen Delivery High Flow Therapy with Na Oxygen Flow Rate 3 01/30/25 21:06 01/30/25 21:24 01/30/25 22:00 Temperature Pulse Rate 98 97 82 Respiratory Rate 22 H Blood Pressure Pulse Oximetry 96 Oxygen Delivery Nasal Cannula Oxygen Flow Rate 3 01/30/25 23:00 01/31/25 00:00 01/31/25 00:00 Temperature 98.7 F Pulse Rate 96 92 91 Respiratory Rate 20 20 Blood Pressure 158/90 H Pulse Oximetry 96 90 Oxygen Delivery Oxygen Flow Rate 01/31/25 00:21 01/31/25 01:28 01/31/25 02:07 Temperature Pulse Rate 92 94 97 Respiratory Rate 20 16 Blood Pressure Pulse Oximetry 90 Oxygen Delivery Nasal Cannula Oxygen Flow Rate 2 01/31/25 02:14 01/31/25 03:51 01/31/25 04:00 Temperature Pulse Rate 101 H 96 80 Respiratory Rate 16 Blood Pressure Pulse Oximetry Oxygen Delivery Oxygen Flow Rate 01/31/25 04:00 01/31/25 04:00 01/31/25 05:12 Temperature 98.1 F Pulse Rate 98 98 90 Respiratory Rate 20 20 Blood Pressure 170/99 H Pulse Oximetry 93 93 Oxygen Delivery Nasal Cannula Oxygen Flow Rate 3 01/31/25 07:49 01/31/25 07:49 01/31/25 08:00 Temperature 97.8 F Pulse Rate 85 85 89 Respiratory Rate 20 20 20 Blood Pressure 157/95 H Pulse Oximetry 97 97 Oxygen Delivery Nasal Cannula Oxygen Flow Rate 3 01/31/25 08:02 Temperature Pulse Rate 88 Respiratory Rate 20 Blood Pressure Pulse Oximetry Oxygen Delivery Oxygen Flow Rate Intake/Output Intake/Output: Intake & Output 01/28/25 01/29/25 01/30/25 01/31/25 23:59 23:59 23:59 23:59 Intake Total 5850 885 4929 1200 Output Total 8286 035 8363 350 Balance -120 -410 660 850 Meds/Results Medications: Active Medications Generic Name Dose Route Start Last Admin Trade Name Freq PRN Reason Stop Dose Admin Acetaminophen 650 mg 01/23/25 14:11 01/31/25 08:02 Acetaminophen 325 Mg Tablet FEED TUBE 650 mg Q4H PRN Administration Fever 1-3 Albuterol/Ipratropium 3 ml 01/26/25 14:00 01/31/25 07:48 Ipratropium 0.5 Mg/Albuterol Sulfate 2.5 Mg Ampul.Neb 3 Ml INHALATION 3 ml Q6HRT MEENA Administration Amlodipine Besylate 10 mg 01/31/25 09:00 01/31/25 08:02 Amlodipine Besylate 10 Mg Tablet FEED TUBE 10 mg DAILY MEENA Administration Budesonide 0.5 mg 01/26/25 10:00 01/31/25 07:48 Budesonide Respule Neb 0.5 Mg/2 Ml Amp INHALATION 0.5 mg Q12HRT MEENA Administration Dextrose 12.5 gm 01/20/25 08:23 01/29/25 11:47 Dextrose 50% 25 Gm/50 Ml Syringe IV PUSH 12.5 gm PRN PRN Administration Hypoglycemia Protocol Epoetin Emil-epbx 10,000 units 01/23/25 09:00 01/30/25 08:45 Epoetin Emil-Epbx 10,000 Units/Ml Vial SUB-Q 10,000 units TUTHSA@09 MEENA Administration Folic Acid 1 mg 01/20/25 09:00 01/31/25 08:02 Folic Acid 1 Mg/0.2 Ml Inj IV PUSH 1 mg QAM MEENA Administration Glucagon 1 mg 01/20/25 08:23 Glucagon For Inj 1 Mg Vial IM PRN PRN Hypoglycemia Protocol Glucose 15 gm 01/20/25 08:23 Glucose Oral Gel 15 Gm Of Glucse In 37.5 Gm Tube PO PRN PRN Hypoglycemia Protocol Hydralazine HCl 20 mg 01/24/25 03:34 01/30/25 02:48 Hydralazine Hcl 20 Mg/Ml Vial IV PUSH 20 mg Q4H PRN Administration Hypertension Hydralazine HCl 25 mg 01/27/25 07:40 01/31/25 05:49 Hydralazine Hcl 25 Mg Tablet PO 25 mg Q8HR MEENA Administration Dextrose 1,000 mls @ 100 mls/hr 01/20/25 08:23 Dextrose 5% 1,000 Ml IVPB PRN PRN Hypoglycemia Protocol Ceftriaxone Sodium 2 gm/ 100 mls @ 200 mls/hr 01/30/25 11:00 01/30/25 12:19 Sodium Chloride IVPB Infused Q24H MEENA Infusion Metronidazole 500 mg in 100 mls @ 100 mls/hr 01/30/25 22:00 01/31/25 05:49 Flagyl 500 Mg/Iso Soln 100 Ml IVPB 100 mls/hr Q8H MEENA Administration Sodium Chloride 1,000 mls @ 100 mls/hr 01/30/25 11:25 01/31/25 08:03 Sodium Chloride 0.45% IV CONT 100 mls/hr .Q10H MEENA Administration Insulin Aspart 3 - 6 units 01/20/25 12:00 01/31/25 06:29 Insulin Aspart (*Bkc) 100 Units/Ml SUB-Q Not Given Q6HR MEENA Protocol Labetalol HCl 20 mg 01/23/25 09:31 01/31/25 03:51 Labetalol Hcl Inj 100 Mg/20 Ml Vial IV PUSH 20 mg Q4H PRN Administration SBP > 160 and HR> 60 -1st choice Multi-Ingred Cream/Lotion/Oil/Oint 1 applic 01/22/25 21:00 01/31/25 08:02 Mineral Oil/White Petrolatum Ointment EACH EYE Not Given Q12HR MEENA Pantoprazole Sodium 40 mg 01/21/25 09:00 01/31/25 08:02 Pantoprazole Sodium Iv 40 Mg Vial IV PUSH 40 mg Q12HR MEENA Administration Perflutren Lipid Microsphere 0 ml 01/29/25 14:20 Perflutren Lipid Microspheres 1.5 Ml Vial Diluted To 10 Ml Total Volume IV PUSH 02/01/25 14:20 ONCE PRN adequate visualization Protocol Thiamine HCl 100 mg 01/20/25 09:00 01/31/25 08:02 Thiamine Hcl 200 Mg/2 Ml Vial IV PUSH 100 mg QAM MEENA Administration Vancomycin HCl 1 each 01/30/25 14:19 Vancomycin For Acute Kidney Injury IVPB PRN PRN Vancomycin Protocol Radiology Results: ITS Impressions Abdomen X-Ray 01/20/25 05:42 Impression: NG tube in satisfactory position. Small left pleural effusion. Chest/Abdomen/Pelvis CT 01/20/25 05:48 Impression: Moderate to large left pleural effusion with extensive left lower lobe atelectasis. Small right pleural effusion. 9 mm spiculated nodule in the right lower lobe, as detailed above, indeterminate. CT scan in 3 months advised. Consider PET/CT or attempted tissue sampling as indicated. Moderate emphysema. No definite evidence for GI bleed, but evaluation is limited without IV contrast and with oral contrast on board. Consider follow-up CT angiogram of the bowel to further evaluate for GI bleed, as indicated. Moderate abdominopelvic ascites. T12 compression fracture, somewhat age indeterminate, but new since 06/20/2024. Fractures of the right anterior acetabulum at the junction of the right superior pubic ramus and of the right inferior pubic ramus, acute to subacute in nature. Head CT 01/20/25 06:13 Impression: No intracranial hemorrhage, mass, or acute infarct. Atrophy and chronic white matter changes, as above. Wrist X-Ray 01/20/25 06:13 Impression: Probable chronic fracture deformities of the distal radius and ulnar styloid process, as detailed above. No definite acute fracture. Renal Ultrasound 01/21/25 08:42 IMPRESSION: 1. Medical renal disease. 2. Mild bilateral hydronephrosis. No nephrolithiasis. Hip/Pelvis X-Ray 01/24/25 11:12 Impression: 1: Healing right acetabular and inferior pubic rami fractures with callus formation. Chest X-Ray 01/28/25 05:45 Impression: 1: Retrocardiac airspace consolidation which may represent atelectasis or pneumonia. No significant change. Modified Barium Swallow 01/29/25 13:33 IMPRESSION: Pharyngeal dysphagia with laryngeal penetration and aspiration with thin liquids. Please correlate with speech pathologist findings and specific feeding recommendations. Chest CT 01/29/25 16:18 IMPRESSION: 1. Grossly stable size and configuration of the 0.9 cm cavitary lesion in the superior segment of the right lower lobe. Differential includes but is not limited to an infectious process, necrotic malignancy or septic pulmonary embolus. Consider a biopsy or PET/CT. Short-term follow-up is recommended. 2. Moderate-sized left-sided pleural effusion. 3. Small right-sided pleural effusion. 4. Moderate-sized consolidation in the left lower lobe with air bronchograms. Recommend follow-up to resolution. 5. There is contrast within the stomach and proximal small bowel. 6. There is nonspecific fluid and fat stranding in the upper abdomen similar to the CT study from 01/20/2025. Labs Labs: Laboratory Results - last 24 hr 01/30/25 01/30/25 01/30/25 03:45 11:32 15:40 WBC RBC Hgb Hct MCV MCH MCHC RDW Plt Count MPV Sodium Potassium Chloride Carbon Dioxide Anion Gap BUN Creatinine Estim Creat Clear Calc Estimated GFR Glucose POC Capillary Glucose 124 H 89 Calcium Phosphorus Albumin [id number] 228 H 01/31/25 01/31/25 01/31/25 00:05 03:46 05:59 WBC 10.1 H RBC 3.88 L Hgb 11.7 L Hct 38.9 MCV 100.3 H MCH 30.2 MCHC 30.1 L RDW 22.9 H Plt Count 40 L MPV 11.3 H Sodium 144 Potassium 3.9 Chloride 112 H Carbon Dioxide 23 Anion Gap 9 BUN 55 H Creatinine 1.94 H Estim Creat Clear Calc 18 Estimated GFR 26 L Glucose 98 POC Capillary Glucose 92 94 Calcium 8.2 L Phosphorus 3.5 Albumin 3.2 L [id number]
--- NOTE | 2025-01-31 11:35 | PCPTNOTE ---
Patient has not been seen by neurosurgery yet. Potentially going on hospice. Hold for now. physical therapy will attempt again tomorrow as time allows.
[2025-01-31] MEDS: cefTRIAXone 2 GM in SODIUM CHLORIDE 0.9% IV 100 ML 200 ML IVPB (12:04)
[2025-01-31 12:47] LABS: Alveolar/Arterial O2 Gradient 98.6 mmHg; Fractional Inspired Oxygen 28 %; HCO3 ABG 18.7 mEq/l (22.0-26.0); Liters per Minute 2.0 LPM; Modified Allen's Test Pass; Oxygen Content ABG 14.1 %vol (16.0-22.0); Oxygen Saturation ABG 94.8 % (95.0-100.0); PCO2 ABG 27.5 mmHg (35.0-45.0); PO2 ABG 68.6 mmHg (80.0-100.0); PO2 FiO2 Ratio Arterial Blood 2.45 %; Site Drawn LEFT RADIAL
[2025-01-31] MEDS: VANCOMYCIN 500 MG/NS 100 ML 500 MG/100 ML BAG 100 MG IVPB (16:31)
[2025-02-01] VITALS (15 sets, daily range): BP systolic 152–171; BP diastolic 98–102; PULSE 71–97; RESP 16–22; TEMP 36.4–36.6; O2SAT 90–97
--- NOTE | 2025-02-01 05:17 | PCRCNOTE ---
Apnea Link/sleep study completed on 2 L/min nasal cannula. When retrieving the Link in the am, it was found removed from her person and laying in bed next to her
[2025-02-01] MEDS: metroNIDAZOLE 500 MG/ISO 100ML 500 MG/100 ML BAG 100 MG IVPB (05:30)
[2025-02-01 06:42] LABS: Hematocrit 36.9 % (37.0-47.0); Hemoglobin 11.3 g/dL (12.0-15.0); Immature Platelet Fraction Pct 2.8 % (0.9-11.2); Mean Corpuscular HGB Conc 30.6 g/dl (32-36); Mean Corpuscular Hemoglobin 30.0 pg (26-34); Mean Corpuscular Volume 97.9 fl (80-100); Platelet Count Result 58 k/mm3 (150-375); Red Blood Count 3.77 M/mm3 (4.2-5.4); White Blood Count 9.1 K/mm3 (4.5-10.0)
[2025-02-01 07:09] LABS: Alanine Aminotransferase 19 U/L (6-35); Albumin Level 2.9 g/dL (3.5-5.1); Alkaline Phosphatase 88 U/L (38-126); Anion Gap 12 mmol/L (4-12); Aspartate Amino Transferase 23 U/L (14-36); Bilirubin,Total 1.2 mg/dL (0.2-1.3); Blood Urea Nitrogen 47 mg/dL (7-17); Calcium 7.9 mg/dL (8.4-10.2); Carbon Dioxide 17 mmol/L (22-30); Chloride 111 mmol/L (98-107); Estimated CRCL calculation 20 ml/min; Estimated Glomerular Filt Rate 29; Glucose 81 mg/dL (65-110); Potassium 3.1 mmol/L (3.4-5.0); Sodium 140 mmol/L (137-145); Total Protein 5.8 g/dL (6.3-8.2); Triglycerides 150 mg/dL (<150)
[2025-02-01] MEDS: IPRATROPIUM 0.5 MG/ALBUTEROL SULFATE 2.5 MG AMPUL.NEB 3 ML INHALATION ×3 (07:22→20:30)
[2025-02-01] MEDS: BUDESONIDE RESPULE NEB 0.5 MG/2 ML AMP INHALATION (07:22)
[2025-02-01 08:47] LABS: NT Pro B Type Natriuretic Pept > 30000 pg/mL (19.9-100)
[2025-02-01 09:15] LABS: CRP 6.0 mg/dL (<1.0)
[2025-02-01 09:24] LABS: Procalcitonin 29.5 ng/mL
[2025-02-01] MEDS: PANTOPRAZOLE SODIUM IV 40 MG VIAL IV PUSH ×2 (09:32→21:11)
[2025-02-01] MEDS: THIAMINE HCL 200 MG/2 ML VIAL 100 MG IV PUSH (09:32)
[2025-02-01] MEDS: FOLIC ACID 1 MG/0.2 ML INJ IV PUSH (09:33)
--- NOTE | 2025-02-01 09:35 | P.PNPL_ITS ---
Progress Note: A&P Assessment and Plan (1) COPD (chronic obstructive pulmonary disease): Code(s): J44.9 - Chronic obstructive pulmonary disease, unspecified Status: Acute Assessment and Plan: patient carries a history of tobacco use, she tells me she was diagnosed with COPD approximately 10 years ago with PFTs. I do not have the PFT results. CT scan of the chest on 01/20/2025 demonstrates moderate apical predominant centrilobular emphysema and mild apical predominant paraseptal emphysema. She cannot tell me if she has been on inhalers previously. home medicine list does not list inhalers. on admission white blood cell count 11.2, eosinophils 0%. 01/29/2025: Patient is awake but encephalopathic, she is in no respiratory distress. Patient is on room air with saturations 95%. She is afebrile with a last fever of 01/27 at 6:00 a.m.. Her white blood cell count is 6.1, creatinine is 2.06. Yesterday she diuresed 120 mL and cumulative she is -6 mL since admission. Her weight today is 39.7 kg. Chest x-ray yesterday demonstrated ET tube with hyperinflation and retrocardiac infiltrate. the patient empirically was placed on noninvasive ventilation post extubation and I agree with that for tonight as long as she tolerates this. I placed her on the noninvasive ventilator with the AVAPS mode and adjusted the settings to comfort resulting in a rate of 14, tidal volume 450, EPAP 5, minimum inspiratory pressure 6, maximal inspiratory pressure 20, inspiratory time 1.0, rise of 5 which is the slowest and 28% FiO2. Plan: I do not see any evidence of current COPD exacerbation, pneumonia, bronchitis. Agree with Gabrielbs Q.6 hours. No indication for inhaled steroids or systemic steroids at this time. Goal saturation 90-94%. Currently she is on room air. It is unclear if the patient has chronic hypercarbic respiratory failure. Would continue empiric noninvasive ventilation with the AVAPS mode as above 1 more night as long as she tolerates this well. If she is struggling to tolerate this I would not press the issue and just place her on room air or nasal cannula keep saturations 90-94%. would try her without noninvasive ventilation the night of 01/30/2025 and when she is off the noninvasive ventilator for 24 hours will check a blood gas to assess for chronic hypercarbic respiratory failure. will order echocardiogram to assess LV function, RV function, and pulmonary pressures. Inpatient pulmonary consult services will resume on 02/01/2025, call with questions. 02/01/2025: Patient remains debilitated, she cannot sit herself up in bed, she cannot cough. Overall she says she feels a little bit better. She still has shortness of breath at rest. Her cough is more than baseline and unchanged with no phlegm and no hemoptysis. Her last fever was 830 at 2:50 a.m. and she has been afebrile since then. When I entered the room she was on 2 L nasal cannula saturations 97%. I placed her on room air and her saturations were 93%. Her white blood cell count is 9.1, her BUN is 47, creatinine is 1.77, her bicarb is 17. Her procalcitonin has increased from 1.5 on 01/20/2025 to a value of 29.5 today. Her BNP is greater than 30,000. her CRP has increased from 0.9 on 01/20/2025 to a value of 6.0 today. yesterday she was positive 2.1 L, cumulative she is positive 2.5 L. Her weight today is 41.6. Patient had an overnight oximetry on 2 L nasal cannula with recording duration of 5 hours and 59 minutes, average saturation 94%. Low saturation 88%, time with saturation less than or equal to 88% was 0 minutes, oxygen desaturation index 1.6. Plan: patient has no wheezing and no evidence of COPD exacerbation. Continue DuoNebs q.6 hours. Patient had low eosinophils on presentation and no wheezing currently. I will discontinue budesonide nebulizers. Patient states she has minimal phlegm but maybe she is just not expectorating. I will add guaifenesin 1200 mg p.o. b.i.d. and a Cornet flutter valve today. Overnight oximetry on 2 L nasal cannula with adequate oxygenation and I will repeat an overnight oximetry tonight on room air. Patient has bilateral pleural effusions left greater than right with a BNP greater than 30,000 as well as renal insufficiency that has improved with IV fluids. Discussed with Renal and will cut back on IV fluids today. Will check chest x-ray tomorrow. Discussed with Drs. Hernandez and Dimitri, and Rafi Al, will follow with you. (2) Cavitary lesion of lung: Code(s): J98.4 - Other disorders of lung Status: Acute Assessment and Plan: Patient has a 9 mm spiculated nodule with a cavity in the superior segment of the right lower lobe and was treated with Zosyn for 7 days which ended 01/26/25. 01/29/25: plan: I will obtain a CT scan of the chest to reassess this cavity. Would favor a more prolonged course of antibiotics if the cavity exist such as Augmentin for another 14 days with follow-up CT scan in about 6-8 weeks. Later in the day patient had a CT chest compared to 01/20/2025 there was unchanged moderate apical predominant centrilobular emphysema and mild apical predominant paraseptal emphysema, unchanged small right pleural effusion, unchanged moderate left effusion with left lower lobe atelectasis versus infiltrate. Unchanged 0.9 mm cavity in the superior segment of the right lower lobe. 01/30/25: patient started on vancomycin, ceftriaxone and Flagyl. 02/01/2025: Patient's last fever was 01/30/2025 at 2:50 a.m.. She has no leukocytosis at 9.1 today, her CRP is 6 and her procalcitonin is 29.5. Spoke with Infectious Disease team and patient will be switched to ceftriaxone, Zyvox and Flagyl. Plan: Favor treatment of 0.9 mm cavity in the superior segment of the right lower lobe for total of 3 weeks of antibiotics from 01/20/2025. Overall her CT scan on 01/29/2025 compared to 01/20/2025 essentially unchanged. There is no air-fluid level or progression of the small cavity at 0.9 mm in the superior segment of the right lower lobe. Will repeat CRP and procalcitonin in the morn ing. Will repeat chest x-ray in the morning. Subjective Date/time seen: 02/01/25 09:35 Interval history: 01/29/2025: This is a new pulmonary consult for COPD 59-year-old with a history of alcoholism, cirrhosis, CKD with creatinine 1.49 on 06/20/2024, tobacco use, hepatitis-C, chronic encephalopathy, malnutrition, tobacco use and COPD. Patient is currently transferred out of the ICU and she knows her name and the year but not the month and does not know the hospital or the president and the and I did states. Patient had a CT scan of the abdomen on 06/10/2024 which showed moderate bilateral pleural effusions. 01/20/2025: patient presented to the emergency department with hematemesis since 01/19/2025. She was not protecting her airway in the emergency department and was intubated. Her blood pressure was 109/84, heart rate 86, respirations 16. White blood cell count 11.2 with eosinophils 0, creatinine 3.43, BUN 109, CRP 0.9, procalcitonin 1.2, lactic acid 2.0. Patient had a CT scan chest abdomen and pelvis and in comparison to 06/20/2024 the right pleural effusion had decreased, the left effusion was unchanged and moderate with left lower lobe atelectasis, There was a 9 mm cavity in the superior segment RLL, moderate apical predominant centrilobular emphysema and mild apical predominant paraseptal emphysema. She was started on Protonix, octreotide, vancomycin and Rocephin empirically. EGD demonstrated reflux erosive esophagitis. Antibiotics were changed to Zosyn. Of note patient had a fractured right acetabulum, right inferior pubic rami fracture, mild abdominal pelvic ascites and later was found to have a fractured left wrist. Orthopedics was consulted and no surgical intervention was performed or planned. 01/24/2025 patient was extubated but had increased work of breathing and was reintubated 1 hour later. 01/26/2025 Zosyn was discontinued. 01/28/2025: Patient was extubated after successful spontaneous breathing trial on CPAP 5 PSV 8 with a blood gas of 7.49/36/93. Patient was placed on noninvasive ventilation with the AVAPS mode overnight. 01/29/2025: Patient is awake but encephalopathic, she is in no respiratory distress. Patient is on room air with saturations 95%. She is afebrile with a last fever of 827 at 6:00 a.m.. Her white blood cell count is 6.1, creatinine is 2.06. Yesterday she diuresed 120 mL and cumulative she is -6 mL since admission. Her weight today is 39.7 kg. Chest x-ray yesterday demonstrated ET tube with hyperinflation and retrocardiac infiltrate. The patient empirically was placed on noninvasive ventilation post extubation and I agree with that for tonight as long as she tolerates this. I placed her on the noninvasive ventilator with the AVAPS mode and adjusted the settings to comfort resulting in a rate of 14, tidal volume 450, EPAP 5, minimum inspiratory pressure 6, maximal inspiratory pressure 20, inspiratory time 1.0, rise of 5 which is the slowest and 28% FiO2. Later in the day patient had an echocardiogram with LVEF 655-60%, grade 1 diastolic dysfunction, mild left atrial enlargement, mild mitral regurg, mild aortic stenosis with a valve area of 1.8 cm, mean gradient 9, normal RV size and function, normal right atrial size, moderate tricuspid regurg with PASP of 53. Later in the day patient had a CT chest compared to 01/20/2025 there was unchanged moderate apical predominant centrilobular emphysema and mild apical predominant paraseptal emphysema, unchanged small right pleural effusion, unchanged moderate left effusion with left lower lobe atelectasis versus infiltrate. Unchanged 0.9 mm cavity in the superior segment of the right lower lobe. 01/30/2025: Vancomycin, ceftriaxone and Flagyl started 02/01/2025: Patient remains debilitated, she cannot sit herself up in bed, she cannot cough. Overall she says she feels a little bit better. She still has shortness of breath at rest. Her cough is more than baseline and unchanged with no phlegm and no hemoptysis. Her last fever was 830 at 2:50 a.m. and she has b een afebrile since then. When I entered the room she was on 2 L nasal cannula saturations 97%. I placed her on room air and her saturations were 93%. Her white blood cell count is 9.1, her BUN is 47, creatinine is 1.77, her bicarb is 17. Her procalcitonin has increased from 1.5 on 01/20/2025 to a value of 29.5 today. Her BNP is greater than 30,000. her CRP has increased from 0.9 on 01/20/2025 to a value of 6.0 today. yesterday she was positive 2.1 L, cumulative she is positive 2.5 L. Her weight today is 41.6. Patient had an overnight oximetry on 2 L nasal cannula with recording duration of 5 hours and 59 minutes, average saturation 94%. Low saturation 88%, time with saturation less than or equal to 88% was 0 minutes, oxygen desaturation index 1.6. DATA: 01/29/25: Echo Summary 1. Complete two-dimensional, color flow and Doppler transthoracic echocardiogram is performed. 2. Left ventricular chamber dimension is normal. 3. Left ventricular systolic function is normal, estimated at 55-60. 4. There is mild concentric increased left ventricular wall thickness. 5. The left ventricular diastolic function is grade I diastolic dysfunction. 6. E/e' 9 is minimally elevated. 7. Left atrial chamber dimension is moderately enlarged. 8. There is mild aortic valve sclerosis. 9. There is mild aortic valve stenosis based on a peak velocity of 214 cm/s, mean gradient of 9 mmHg, and aortic valve area of 1.8 cm2. 10. There is mild mitral valve regurgitation. 11. There is mild tricuspid valve regurgitation. 12. Moderate pulmonary hypertension, estimated pulmonary arterial systolic pressure is 53 mmHg. Right Ventricle Right ventricular chamber dimension is normal. Right ventricular systolic function is normal and with normal TAPSE 1.8 cm. Right Atria Right atrial chamber dimension is normal. 01/29/25: EXAMINATION: CT diagnostic chest wo con DATE: 01/29/2025 16:11 INDICATION: Right upper lobe cavity TECHNIQUE: Computed tomography (CT) of the chest was performed without intravenous contrast. The dose-length product was 142.17 mGy-cm. COMPARISON: CT chest abdomen and pelvis 01/20/2025 FINDINGS: Study is slightly limited due to motion artifact. No enlarged mediastinal or hilar lymph nodes. Heart is mildly moderately enlarged, unchanged. There are a few coronary artery calcifications. There is contrast noted in the stomach and proximal small bowel. There is nonspecific fluid and fat stranding in the upper abdomen similar to the study from 01/20/2025. Thoracic aorta is partially calcified but is not aneurysmal. Small right-sided pleural effusion. Moderate- sized left-sided pleural effusion. No pneumothorax. Grossly stable moderate centrilobular emphysema.Stable 1.9 cm bulla in the right lung apex. Grossly stable size and configuration of the 0.9 cm cavitary lesion in the superior segment of the right lower lobe. Moderate-sized consolidation in the left lower lobe with air bronchograms. Mild biapical scarring. Bones appear osteopenic. Multilevel degenerative change in the visualized spine. Stable compression fracture in what appears to be T12 vertebral body. Stable compression fracture of T6. IMPRESSION: 1. Grossly stable size and configuration of the 0.9 cm cavitary lesion in the superior segment of the right lower lobe. Differential includes but is not limited to an infectious process, necrotic malignancy or septic pulmonary embolus. Consider a biopsy or PET/CT. Short-term follow-up is recommended. 2. Moderate-sized left-sided pleural effusion. 3. Small right-sided pleural effusion. 4. Moderate-sized consolidation in the left lower lobe with air bronchograms. Recommend follow-up to resolution. 5. There is contrast within the stomach and proximal small bowel. 6. There is nonspecific fluid and fat stranding in the upper abdomen similar to the CT study from 01/20/2025. 01/29/25: modified barium swallow FINDINGS: Oral stage: Adequate function. Pharyngeal stage: Reduced laryngeal elevation. There is laryngeal penetration with aspiration with thin liquids.. Cervical/esophageal stage: Adequate function. IMPRESSION: Pharyngeal dysphagia with laryngeal penetration and aspiration with thin liquids. Impression: Moderate/severe dysphagia characterized by the instance of silent aspiration of thin liquids. Recommendation: pureed diet level 4 and mildly thick liquids level 2. ST to treat and reassess pt's ability to manage solids if dentures are found. 01/28/25: XR chest 1V portable 01/28/2025 05:39 Indication: Respiratory failure Procedure: AP portable chest Comparison: Comparison to multiple prior studies sequentially, with oldest reviewed study dated 01/24/2025. Findings: Cardiomegaly. Persistent retrocardiac airspace consolidation. No significant effusion. No pneumothorax. Endotracheal tube tip 3.2 cm above the aylin. Right IJ central line tip in the SVC. Impression: 1: Retrocardiac airspace consolidation which may represent atelectasis or pneum onia. No significant change. 01/20/2025: Clinical Indication: GI bleed CT Scan of the Chest, Abdomen, and Pelvis without Contrast: Technique: Contiguous sections were acquired throughout the chest, abdomen, and pelvis without IV contrast administration. Dose reduction technique was used on this scan by utilizing automated exposure control and iterative reconstruction technique. The dose-length product (DLP) was 267.47 mGy-cm. Comparison: 06/20/2024 Findings: Endotracheal tube and NG tube are in place. There is no evidence of any significant mediastinal, hilar or axillary lymphadenopathy. The mediastinal soft tissues appear normal. No pericardial effusion. Moderate to large left pleural effusion present. There is extensive left lower lobe atelectasis. Small right pleural effusion present. There is a 9 mm spiculated nodular opacity with central cavitation in the right lower lobe (axial image 85). Moderate emphysema present. There is right apical scarring. The liver, spleen, pancreas, gallbladder, adrenals and kidneys are within normal limits. No evidence of aortic aneurysm. No lymphadenopathy. There is probable oral contrast on board. No definite evidence for GI bleed identified. No bowel obstruction or bowel wall thickening evident. Mclean catheter in place. No pelvic mass seen. Moderate abdominopelvic ascites present. Moderate T12 compression fracture deformity is present, new from prior exam. There is acute fracture of the anterior acetabulum at the junction with the right superior pubic ramus. There is additional fracture inferior pubic ramus. These fractures are acute to subacute in appearance. Impression: Moderate to large left pleural effusion with extensive left lower lobe atelectasis. Small right pleural effusion. 9 mm spiculated nodule in the right lower lobe, as detailed above, indeterminate. CT scan in 3 months advised. Consider PET/CT or attempted tissue sampling as indicated. Moderate emphysema. No definite evidence for GI bleed, but evaluation is limited without IV contrast and with oral contrast on board. Consider follow-up CT angiogram of the bowel to further evaluate for GI bleed, as indicated. Moderate abdominopelvic ascites. T12 compression fracture, somewhat age indeterminate, but new since 06/20/2024. Fractures of the right anterior acetabulum at the junction of the right superior pubic ramus and of the right inferior pubic ramus, acute to subacute in nature. Review of Systems Constitutional: Constitutional: Reports no additional constitutional complaints Eyes: Eyes: Reports no additional eye complaints ENT: Reports system reviewed and no additional complaints, except as documented Cardiovascular: Cardiovascular: Reports no additional cardiovascular complaints Respiratory: Respiratory: Reports no additional respiratory complaints Gastrointestinal: Gastrointestinal: Reports no additional gastrointestinal complaints Musculoskeletal: Musculoskeletal: Reports no additional musculoskeletal complaints Neurologic: Reports system reviewed and no additional complaints, except as documented Psychiatric: Psychiatric: Reports no additional psychiatric complaints Endocrine: Endocrine: Reports no additional endocrine complaints Hematologic/Lymphatic: Hematologic/Lymphatic: Reports no additional hematologic/lymphatic complaints Allergic/Immunologic: Allergic/Immunologic: Reports no additional allergic/immunologic complaints Exam Const: General: cooperative, comfortable and no acute distress Orientation/consciousness: oriented to person, oriented to place and oriented to time Other: Cachectic HENMT: Head: normal to inspection Ears: hearing grossly normal bilaterally Eyes: General: appearance normal, both eyes and all related structures Neck: Neck: normal visual inspection Chest: Chest palpation & inspection: normal inspection of the chest Resp: Effort & Inspection: normal respiratory effort and able to speak in complete sentences Auscultation: no crackles, no rales, no rhonchi, no wheezes and diminished lung sounds Other: decreased breath sounds throughout Cardio: Jugular venous distension: no JVD GI: Inspection: normal to inspection Skin: General skin exam: normal color Neuro: General: oriented to person, oriented to place and oriented to time Extrem: General: normal to inspection Other: no edema Cachectic Psych: Appearance: grossly normal Objective Data Vital Signs Vital Signs: Vital Signs - 24 hr 01/31/25 10:00 01/31/25 12:00 01/31/25 12:00 Temperature 36.8 C Pulse Rate 88 84 Respiratory Rate 20 Blood Pressure 164/95 H Pulse Oximetry 91 93 Oxygen Delivery Nasal Cannula Oxygen Flow Rate 3 Fraction of Inspired Oxygen 01/31/25 12:00 01/31/25 14:00 01/31/25 14:22 Temperature Pulse Rate 86 88 86 Respiratory Rate 20 Blood Pressure Pulse Oximetry 94 Oxygen Delivery Nasal Cannula Oxygen Flow Rate 2 Fraction of Inspired Oxygen 01/31/25 14:22 01/31/25 14:32 01/31/25 16:00 Temperature Pulse Rate 86 85 Respiratory Rate 20 20 Blood Pressure Pulse Oximetry 97 Oxygen Delivery Nasal Cannula Oxygen Flow Rate 3 Fraction of Inspired Oxygen 01/31/25 16:00 01/31/25 16:00 01/31/25 18:00 Temperature 36.4 C Pulse Rate 87 87 86 Respiratory Rate 22 H Blood Pressure 129/73 Pulse Oximetry 97 Oxygen Delivery Oxygen Flow Rate Fraction of Inspired Oxygen 01/31/25 19:20 01/31/25 20:00 01/31/25 20:00 Temperature 36.6 C Pulse Rate 89 90 90 Respiratory Rate 19 16 Blood Pressure 145/92 H Pulse Oximetry 94 93 Oxygen Delivery Nasal Cannula Oxygen Flow Rate 2 Fraction of Inspired Oxygen 01/31/25 20:40 01/31/25 20:45 01/31/25 22:00 Temperature Pulse Rate 90 90 92 Respiratory Rate 16 16 Blood Pressure Pulse Oximetry 93 Oxygen Delivery Nasal Cannula Oxygen Flow Rate 2 Fraction of Inspired Oxygen 01/31/25 22:50 01/31/25 23:46 02/01/25 00:00 Temperature 36.5 C Pulse Rate 92 72 72 Respiratory Rate 16 17 17 Blood Pressure 164/92 H Pulse Oximetry 93 95 95 Oxygen Delivery High Flow Nasal Cannula High Flow Nasal Cannula Oxygen Flow Rate 2 2 Fraction of Inspired Oxygen 28 02/01/25 00:00 02/01/25 02:00 02/01/25 03:01 Temperature 36.4 C Pulse Rate 92 96 71 Respiratory Rate 17 Blood Pressure 171/98 H Pulse Oximetry 91 Oxygen Delivery Oxygen Flow Rate Fraction of Inspired Oxygen 02/01/25 04:00 02/01/25 04:00 02/01/25 05:30 Temperature Pulse Rate 92 92 92 Respiratory Rate 17 Blood Pressure Pulse Oximetry 91 Oxygen Delivery High Flow Nasal Cannula Oxygen Flow Rate 2 Fraction of Inspired Oxygen 28 02/01/25 06:00 02/01/25 07:25 02/01/25 07:33 Temperature Pulse Rate 94 89 80 Respiratory Rate 20 20 Blood Pressure Pulse Oximetry Oxygen Delivery Oxygen Flow Rate Fraction of Inspired Oxygen 02/01/25 08:00 Temperature 36.6 C Pulse Rate 88 Respiratory Rate 16 Blood Pressure 170/102 H Pulse Oximetry 97 Oxygen Delivery Oxygen Flow Rate Fraction of Inspired Oxygen Intake/Output Intake/Output: Intake & Output 01/29/25 01/30/25 01/31/25 02/01/25 23:59 23:59 23:59 23:59 Intake Total 240 1710 3020 Output Total 650 1050 850 450 Balance -205 869 8979 -450 Meds/Results Medications: Active Medications Generic Name Dose Route Start Last Admin Trade Name Freq PRN Reason Stop Dose Admin Acetaminophen 650 mg 01/23/25 14:11 01/31/25 08:02 Acetaminophen 325 Mg Tablet FEED TUBE 650 mg Q4H PRN Administration Fever 1-3 Albuterol/Ipratropium 3 ml 01/26/25 14:00 02/01/25 07:22 Ipratropium 0.5 Mg/Albuterol Sulfate 2.5 Mg Ampul.Neb 3 Ml INHALATION 3 ml Q6HRT MEENA Administration Amlodipine Besylate 10 mg 01/31/25 09:00 01/31/25 08:02 Amlodipine Besylate 10 Mg Tablet FEED TUBE 10 mg DAILY MEENA Administration Budesonide 0.5 mg 01/26/25 10:00 02/01/25 07:22 Budesonide Respule Neb 0.5 Mg/2 Ml Amp INHALATION 0.5 mg Q12HRT MEENA Administration Dextrose 12.5 gm 01/20/25 08:23 01/29/25 11:47 Dextrose 50% 25 Gm/50 Ml Syringe IV PUSH 12.5 gm PRN PRN Administration Hypoglycemia Protocol Folic Acid 1 mg 01/20/25 09:00 01/31/25 08:02 Folic Acid 1 Mg/0.2 Ml Inj IV PUSH 1 mg QAM MEENA Administration Glucagon 1 mg 01/20/25 08:23 Glucagon For Inj 1 Mg Vial IM PRN PRN Hypoglycemia Protocol Glucose 15 gm 01/20/25 08:23 Glucose Oral Gel 15 Gm Of Glucse In 37.5 Gm Tube PO PRN PRN Hypoglycemia Protocol Hydralazine HCl 20 mg 01/24/25 03:34 01/30/25 02:48 Hydralazine Hcl 20 Mg/Ml Vial IV PUSH 20 mg Q4H PRN Administration Hypertension Hydralazine HCl 50 mg 02/01/25 14:00 Hydralazine Hcl 25 Mg Tablet PO Q8HR MEENA Dextrose 1,000 mls @ 100 mls/hr 01/20/25 08:23 Dextrose 5% 1,000 Ml IVPB PRN PRN Hypoglycemia Protocol Sodium Bicarbonate 100 meq/ 1,100 mls @ 75 mls/hr 02/01/25 08:40 Sterile Water IV CONT .[id number] [facility] Insulin Aspart 3 - 6 units 01/20/25 12:00 02/01/25 06:09 Insulin Aspart (*Bkc) 100 Units/Ml SUB-Q Not Given Q6HR [facility] Protocol Labetalol HCl 20 mg 01/23/25 09:31 02/01/25 05:30 Labetalol Hcl Inj 100 Mg/20 Ml Vial IV PUSH 20 mg Q4H PRN Administration SBP > 160 and HR> 60 -1st choice Pantoprazole Sodium 40 mg 01/21/25 09:00 01/31/25 21:48 Pantoprazole Sodium Iv 40 Mg Vial IV PUSH 40 mg Q12HR MEENA Administration Perflutren Lipid Microsphere 0 ml 01/29/25 14:20 Perflutren Lipid Microspheres 1.5 Ml Vial Diluted To 10 Ml Total Volume IV PUSH 02/01/25 14:20 ONCE PRN adequate visualization Protocol Potassium Chloride 20 meq 02/02/25 08:00 Potassium Chloride 20 Meq Er Tablet PO DAILY@0800 [facility] Thiamine HCl 100 mg 01/20/25 09:00 01/31/25 08:02 Thiamine Hcl 200 Mg/2 Ml Vial IV PUSH 100 mg QAM MEENA Administration Vancomycin HCl 1 each 01/30/25 14:19 Vancomycin For Acute Kidney Injury IVPB PRN PRN Vancomycin Protocol Radiology Results: ITS Impressions Abdomen X-Ray 01/20/25 05:42 Impression: NG tube in satisfactory position. Small left pleural effusion. Chest/Abdomen/Pelvis CT 01/20/25 05:48 Impression: Moderate to large left pleural effusion with extensive left lower lobe atelectasis. Small right pleural effusion. 9 mm spiculated nodule in the right lower lobe, as detailed above, indeterminate. CT scan in 3 months advised. Consider PET/CT or attempted tissue sampling as indicated. Moderate emphysema. No definite evidence for GI bleed, but evaluation is limited without IV contrast and with oral contrast on board. Consider follow-up CT angiogram of the bowel to further evaluate for GI bleed, as indicated. Moderate abdominopelvic ascites. T12 compression fracture, somewhat age indeterminate, but new since 06/20/2024. Fractures of the right anterior acetabulum at the junction of the right superior pubic ramus and of the right inferior pubic ramus, acute to subacute in nature. Head CT 01/20/25 06:13 Impression: No intracranial hemorrhage, mass, or acute infarct. Atrophy and chronic white matter changes, as above. Wrist X-Ray 01/20/25 06:13 Impression: Probable chronic fracture deformities of the distal radius and ulnar styloid process, as detailed above. No definite acute fracture. Renal Ultrasound 01/21/25 08:42 IMPRESSION: 1. Medical renal disease. 2. Mild bilateral hydronephrosis. No nephrolithiasis. Hip/Pelvis X-Ray 01/24/25 11:12 Impression: 1: Healing right acetabular and inferior pubic rami fractures with callus formation. Chest X-Ray 01/28/25 05:45 Impression: 1: Retrocardiac airspace consolidation which may represent atelectasis or pneumonia. No significant change. Modified Barium Swallow 01/29/25 13:33 IMPRESSION: Pharyngeal dysphagia with laryngeal penetration and aspiration with thin liquids. Please correlate with speech pathologist findings and specific feeding recommendations. Chest CT 01/29/25 16:18 IMPRESSION: 1. Grossly stable size and configuration of the 0.9 cm cavitary lesion in the superior segment of the right lower lobe. Differential includes but is not limited to an infectious process, necrotic malignancy or septic pulmonary embolus. Consider a biopsy or PET/CT. Short-term follow-up is recommended. 2. Moderate-sized left-sided pleural effusion. 3. Small right-sided pleural effusion. 4. Moderate-sized consolidation in the left lower lobe with air bronchograms. Recommend follow-up to resolution. 5. There is contrast within the stomach and proximal small bowel. 6. There is nonspecific fluid and fat stranding in the upper abdomen similar to the CT study from 01/20/2025. Labs Labs: Laboratory Results - last 24 hr 01/31/25 01/31/25 01/31/25 12:06 12:07 12:44 WBC RBC Hgb Hct MCV MCH MCHC RDW Plt Count MPV % Immature Plt Fraction Puncture Site Left radial ABG pH 7.450 ABG pCO2 27.5 L ABG pO2 68.6 L ABG PO2/FiO2 Ratio 2.45 ABG HCO3 18.7 L ABG O2 Saturation 94.8 L ABG O2 Content 14.1 L ABG Base Excess -4.2 A-a Gradient 98.6 Oxyhemoglobin 92.3 Total Hemoglobin 10.8 L O2 Delivery Device Nasal cannula O2 Liters/Min 2.0 FiO2 28 Sodium Potassium Chloride Carbon Dioxide Anion Gap BUN Creatinine Estim Creat Clear Calc Estimated GFR Glucose POC Capillary Glucose 61 L 90 Calcium Phosphorus Total Bilirubin AST ALT Alkaline Phosphatase C-Reactive Protein NT-Pro-B Natriuret Pep Total Protein Albumin Triglycerides Procalcitonin Random Vancomycin 01/31/25 01/31/25 01/31/25 15:08 18:07 23:38 WBC RBC Hgb Hct MCV MCH MCHC RDW Plt Count MPV % Immature Plt Fraction Puncture Site ABG pH ABG pCO2 ABG pO2 ABG PO2/FiO2 Ratio ABG HCO3 ABG O2 Saturation ABG O2 Content ABG Base Excess A-a Gradient Oxyhemoglobin Total Hemoglobin O2 Delivery Device O2 Liters/Min FiO2 Sodium Potassium Chloride Carbon Dioxide Anion Gap BUN Creatinine Estim Creat Clear Calc Estimated GFR Glucose POC Capillary Glucose 84 78 Calcium Phosphorus Total Bilirubin AST ALT Alkaline Phosphatase C-Reactive Protein NT-Pro-B Natriuret Pep Total Protein Albumin Triglycerides Procalcitonin Random Vancomycin 10.6 02/01/25 02/01/25 06:07 06:28 WBC 9.1 RBC 3.77 L Hgb 11.3 L Hct 36.9 L MCV 97.9 MCH 30.0 MCHC 30.6 L RDW 22.4 H Plt Count 58 L MPV 10.6 H % Immature Plt Fraction 2.8 Puncture Site ABG pH ABG pCO2 ABG pO2 ABG PO2/FiO2 Ratio ABG HCO3 ABG O2 Saturation ABG O2 Content ABG Base Excess A-a Gradient Oxyhemoglobin Total Hemoglobin O2 Delivery Device O2 Liters/Min FiO2 Sodium 140 Potassium 3.1 L Chloride 111 H Carbon Dioxide 17 L Anion Gap 12 BUN 47 H Creatinine 1.77 H Estim Creat Clear Calc 20 Estimated GFR 29 L Glucose 81 POC Capillary Glucose 89 Calcium 7.9 L Phosphorus 3.3 Total Bilirubin 1.2 AST 23 ALT 19 Alkaline Phosphatase 88 C-Reactive Protein 6.0 H NT-Pro-B Natriuret Pep > 43895 H Total Protein 5.8 L Albumin 2.9 L Triglycerides 150 Procalcitonin 29.5 Random Vancomycin
[2025-02-01] MEDS: SODIUM BICARBONATE 8.4% 100 MEQ in WATER, STERILE FOR INJECTION 1,000 ML 75 MEQ IV CONT (09:54)
--- NOTE | 2025-02-01 10:11 | P.PNNP_ITS ---
Progress Note: A&P Assessment and Plan (1) Acute kidney injury: Code(s): N17.9 - Acute kidney failure, unspecified Status: Acute Assessment and Plan: * creatinine started out at around 3.4 and improved to around to but now up to 2.13. * likely due to multiple issues: * prerenal factors (poor nutrition) * anemia/GI bleed * infection/sepsis (+ blood cultures) * respiratory failure * hypoxia * liver disease/cirrhosis * progression of underlying CKD * other(?) * evaluation to date noted: * renal ultrasound with CKD and mild bilateral hydronephrosis - mcqueen catheter placed * urine electrolytes prerenal - suspect due to a combination of poor oral intake AND liver disease/physiology (decreased effective circulating volume) * urine eosinophils negative * CPK low * ~ 2 grams of proteinuria * Blood pressure is 130s to 170s * Patient is not eating very well. She is on a pureed diet. she is getting some IV fluids * the patient does have pleural effusions but no swelling. She has no appetite and her albumin level is very low. She might be 3rd spacing which may cause the pleural effusion. She does have a high BNP. It is unclear where this fits in this paradigm because she only has diastolic dysfunction Grade 1. * By not eating, however, her creatinine and sodium were very high. And she is still not eating. So will continue the IV fluids but reduce the rate to more of a maintenance level at 50cc an hour so she does not get behind again * will check another chest x-ray tomorrow. * Sodium level is Normal. * creatinine Continues to improve * her bicarbonate level is dropping. Will change to sterile water with bicarb and run this at 50 an hour to keep the CO2 from dropping further with dilution. * consider albumin and lasix vs thoracentesis if effusions worse? * consider alternative methods of nutrition? (2) Stage 4 chronic kidney disease: Code(s): N18.4 - Chronic kidney disease, stage 4 (severe) Status: Chronic Assessment and Plan: * not entirely clear what baseline creatinine really is.... * was noted to be ~ 1.4 - 1.6mg/dl in June 2024 * however, since December 2024, has been running ~ 2.4 - 2.6mg/dl (from record review from [facility] [place]) * most recent labs done on 01/15/25 -- creatinine up to 2.79mg/dl (ER visit at [place] apparently prior to leaving [facility]) * possible baseline creatinine around 2ish range?? (3) Acute hypoxic respiratory failure: Code(s): J96.01 - Acute respiratory failure with hypoxia Status: Acute Assessment and Plan: * improved * Breathing comfortably. * follow respiratory status (4) Acute upper GI bleeding: Code(s): K92.2 - Gastrointestinal hemorrhage, unspecified Status: Acute Assessment and Plan: * stable/resolved * suspected based on admission events/presentation * GI following * s/p EGD (on 01/20): * noted erosive esophagitis but no varices or bleeding lesions noted * PRBC transfusion per protocol * corrected coagulopathy * IV PPI * Hemoglobin is doing well, now at 11.3 * off the Epogen (5) Sepsis: Code(s): A41.9 - Sepsis, unspecified organism Status: Acute Assessment and Plan: * resolved * possibly from pneumonia (aspiration) versus UTI * follow culture data: * blood cultures (from 01/20): Staphylococcus hominis (suspect contamination) * urine culture - no growth to date * currently on ceftriaxone and flash * stable hemodynamics noted (6) Anemia: Code(s): D64.9 - Anemia, unspecified Status: Acute Assessment and Plan: * due to several issues: * due to underlying CKD * iron deficiency * #3 - GI following * liver disease * coagulopathy/thrombocytopenia * other * PRBC transfusion as needed * off the Epogen * hemoglobin 11.3 today (7) Coagulopathy: Code(s): D68.9 - Coagulation defect, unspecified Status: Acute Assessment and Plan: * probably secondary to liver cirrhosis * complicated by thrombocytopenia also related to liver disease * s/p cryoprecipitate, platelets, and FFP transfusion * low platelet count continues but INR has been okay (8) Alcoholic cirrhosis of liver with ascites: Code(s): K70.31 - Alcoholic cirrhosis of liver with ascites Status: Acute Assessment and Plan: * as evidence by admission CT/imaging findings * presumably partly related to alcohol intake * GI following (9) Transaminitis: Code(s): R74.01 - Elevation of levels of liver transaminase levels Status: Acute Assessment and Plan: * noted by admission labs * suspect secondary to/consistent with with alcoholic liver disease * appear to be stabilizing * Hepatitis C antibody screen is positive -- RNA quantitative is [id number] * will need follow-up as an outpatient basis for hepatitis C infection (10) Acetabular fracture: Qualifiers: Encounter type: initial encounter Fracture alignment: nondisplaced Fracture type: closed Laterality: right Sublocation of acetabulum: unspecified portion of acetabulum Qualified Code(s): S32.401A - Unspecified fracture of right acetabulum, initial encounter for closed fracture Code(s): S32.409A - Unspecified fracture of unspecified acetabulum, initial encounter for closed fracture Status: Acute Assessment and Plan: * as noted by admission CT imaging: * fractures of the right anterior acetabulum at the junction of the right superior pubic ramus and of the right inferior pubic ramus, acute to subacute in nature * Orthopedic Surgery recommendations * repeat imaging X-rays noted: healing right acetabular and inferior pubic rami fractures with callus formation (11) Distal radial fracture: Qualifiers: Encounter type: subsequent encounter Fracture type: closed Fracture morphology: unspecified fracture morphology Laterality: left Fracture healing: with nonunion Qualified Code(s): S52.502K - Unspecified fracture of the lower end of left radius, subsequent encounter for closed fracture with nonunion Code(s): S52.509A - Unspecified fracture of the lower end of unspecified radius, initial encounter for closed fracture Status: Acute Assessment and Plan: * apparently chronic in nature by X-rays * Orthopedic Surgery recommendations reviewed (12) Alcohol abuse: Code(s): F10.10 - Alcohol abuse, uncomplicated Status: Acute Assessment and Plan: * known history * on thiamine and folate Will continue to follow. (13) Hypertension: Code(s): I10 - Essential (primary) hypertension Status: Acute Assessment and Plan: the patient is on amlodipine 10 mg a day and hydralazine 25mg every 8hours. hydralazine increased today to 50 q.8h Subjective Date/time seen: 02/01/25 10:11 Interval history: patient is weak. She did not eat any breakfast no shortness of breath Exam Narrative: General: frail and cachectic female in NAD Heart: normal S1 and S2; no rub or gallop Lungs: breath sounds symmetric and fairly clear. Decreased breath sounds at the bases Abdomen: soft, nontender, nondistended, positive bowel sounds Extremities: no cyanosis or clubbing; no edema Skin: no rash or subcu nodules Objective Data Vital Signs Vital Signs: Vital Signs - 24 hr 01/31/25 12:00 01/31/25 12:00 01/31/25 12:00 Temperature 98.3 F Pulse Rate 84 86 Respiratory Rate 20 Blood Pressure 164/95 H Pulse Oximetry 91 93 Oxygen Delivery Nasal Cannula Oxygen Flow Rate 3 Fraction of Inspired Oxygen 01/31/25 14:00 01/31/25 14:22 01/31/25 14:22 Temperature Pulse Rate 88 86 86 Respiratory Rate 20 20 Blood Pressure Pulse Oximetry 94 Oxygen Delivery Nasal Cannula Oxygen Flow Rate 2 Fraction of Inspired Oxygen 01/31/25 14:32 01/31/25 16:00 01/31/25 16:00 Temperature 97.6 F Pulse Rate 85 87 Respiratory Rate 20 22 H Blood Pressure 129/73 Pulse Oximetry 97 97 Oxygen Delivery Nasal Cannula Oxygen Flow Rate 3 Fraction of Inspired Oxygen 01/31/25 16:00 01/31/25 18:00 01/31/25 19:20 Temperature 97.8 F Pulse Rate 87 86 89 Respiratory Rate 19 Blood Pressure 145/92 H Pulse Oximetry 94 Oxygen Delivery Oxygen Flow Rate Fraction of Inspired Oxygen 01/31/25 20:00 01/31/25 20:00 01/31/25 20:40 Temperature Pulse Rate 90 90 90 Respiratory Rate 16 16 Blood Pressure Pulse Oximetry 93 Oxygen Delivery Nasal Cannula Oxygen Flow Rate 2 Fraction of Inspired Oxygen 01/31/25 20:45 01/31/25 22:00 01/31/25 22:50 Temperature Pulse Rate 90 92 92 Respiratory Rate 16 16 Blood Pressure Pulse Oximetry 93 93 Oxygen Delivery Nasal Cannula High Flow Nasal Cannula Oxygen Flow Rate 2 2 Fraction of Inspired Oxygen 01/31/25 23:46 02/01/25 00:00 02/01/25 00:00 Temperature 97.7 F Pulse Rate 72 72 92 Respiratory Rate 17 17 Blood Pressure 164/92 H Pulse Oximetry 95 95 Oxygen Delivery High Flow Nasal Cannula Oxygen Flow Rate 2 Fraction of Inspired Oxygen 28 02/01/25 02:00 02/01/25 03:01 02/01/25 04:00 Temperature 97.6 F Pulse Rate 96 71 92 Respiratory Rate 17 17 Blood Pressure 171/98 H Pulse Oximetry 91 91 Oxygen Delivery High Flow Nasal Cannula Oxygen Flow Rate 2 Fraction of Inspired Oxygen 02/01/25 04:00 02/01/25 05:30 02/01/25 06:00 Temperature Pulse Rate 92 92 94 Respiratory Rate Blood Pressure Pulse Oximetry Oxygen Delivery Oxygen Flow Rate Fraction of Inspired Oxygen 02/01/25 07:25 02/01/25 07:33 02/01/25 08:00 Temperature 98 F Pulse Rate 89 80 88 Respiratory Rate 20 20 16 Blood Pressure 170/102 H Pulse Oximetry 97 Oxygen Delivery Oxygen Flow Rate Fraction of Inspired Oxygen Intake/Output Intake/Output: Intake & Output 01/29/25 01/30/25 01/31/25 02/01/25 23:59 23:59 23:59 23:59 Intake Total 240 1710 3020 Output Total 650 1050 850 450 Balance -664 543 3717 -450 Meds/Results Medications: Active Medications Generic Name Dose Route Start Last Admin Trade Name Freq PRN Reason Stop Dose Admin Acetaminophen 650 mg 01/23/25 14:11 01/31/25 08:02 Acetaminophen 325 Mg Tablet FEED TUBE 650 mg Q4H PRN Administration Fever 1-3 Albuterol/Ipratropium 3 ml 01/26/25 14:00 02/01/25 07:22 Ipratropium 0.5 Mg/Albuterol Sulfate 2.5 Mg Ampul.Neb 3 Ml INHALATION 3 ml Q6HRT MEENA Administration Amlodipine Besylate 10 mg 01/31/25 09:00 02/01/25 09:34 Amlodipine Besylate 10 Mg Tablet FEED TUBE 10 mg DAILY MEENA Administration Dextrose 12.5 gm 01/20/25 08:23 01/29/25 11:47 Dextrose 50% 25 Gm/50 Ml Syringe IV PUSH 12.5 gm PRN PRN Administration Hypoglycemia Protocol Folic Acid 1 mg 01/20/25 09:00 02/01/25 09:33 Folic Acid 1 Mg/0.2 Ml Inj IV PUSH 1 mg QAM MEENA Administration Glucagon 1 mg 01/20/25 08:23 Glucagon For Inj 1 Mg Vial IM PRN PRN Hypoglycemia Protocol Glucose 15 gm 01/20/25 08:23 Glucose Oral Gel 15 Gm Of Glucse In 37.5 Gm Tube PO PRN PRN Hypoglycemia Protocol Guaifenesin 1,200 mg 02/01/25 10:00 Guaifenesin 12 Hr 600 Mg Tabcr PO Q12HR MEENA Hydralazine HCl 20 mg 01/24/25 03:34 01/30/25 02:48 Hydralazine Hcl 20 Mg/Ml Vial IV PUSH 20 mg Q4H PRN Administration Hypertension Hydralazine HCl 50 mg 02/01/25 14:00 Hydralazine Hcl 25 Mg Tablet PO Q8HR MEENA Dextrose 1,000 mls @ 100 mls/hr 01/20/25 08:23 Dextrose 5% 1,000 Ml IVPB PRN PRN Hypoglycemia Protocol Sodium Bicarbonate 50 meq/ 1,050 mls @ 75 mls/hr 02/01/25 10:10 Sterile Water IV CONT .Q14H [facility] Insulin Aspart 3 - 6 units 01/20/25 12:00 02/01/25 06:09 Insulin Aspart (*Bkc) 100 Units/Ml SUB-Q Not Given Q6HR [facility] Protocol Labetalol HCl 20 mg 01/23/25 09:31 02/01/25 05:30 Labetalol Hcl Inj 100 Mg/20 Ml Vial IV PUSH 20 mg Q4H PRN Administration SBP > 160 and HR> 60 -1st choice Pantoprazole Sodium 40 mg 01/21/25 09:00 02/01/25 09:32 Pantoprazole Sodium Iv 40 Mg Vial IV PUSH 40 mg Q12HR MEENA Administration Perflutren Lipid Microsphere 0 ml 01/29/25 14:20 Perflutren Lipid Microspheres 1.5 Ml Vial Diluted To 10 Ml Total Volume IV PUSH 02/01/25 14:20 ONCE PRN adequate visualization Protocol Potassium Chloride 20 meq 02/02/25 08:00 Potassium Chloride 20 Meq Er Tablet PO DAILY@0800 MEENA Thiamine HCl 100 mg 01/20/25 09:00 02/01/25 09:32 Thiamine Hcl 200 Mg/2 Ml Vial IV PUSH 100 mg QAM MEENA Administration Vancomycin HCl 1 each 01/30/25 14:19 Vancomycin For Acute Kidney Injury IVPB PRN PRN Vancomycin Protocol Radiology Results: ITS Impressions Abdomen X-Ray 01/20/25 05:42 Impression: NG tube in satisfactory position. Small left pleural effusion. Chest/Abdomen/Pelvis CT 01/20/25 05:48 Impression: Moderate to large left pleural effusion with extensive left lower lobe atelectasis. Small right pleural effusion. 9 mm spiculated nodule in the right lower lobe, as detailed above, indeterminate. CT scan in 3 months advised. Consider PET/CT or attempted tissue sampling as indicated. Moderate emphysema. No definite evidence for GI bleed, but evaluation is limited without IV contrast and with oral contrast on board. Consider follow-up CT angiogram of the bowel to further evaluate for GI bleed, as indicated. Moderate abdominopelvic ascites. T12 compression fracture, somewhat age indeterminate, but new since 06/20/2024. Fractures of the right anterior acetabulum at the junction of the right superior pubic ramus and of the right inferior pubic ramus, acute to subacute in nature. Head CT 01/20/25 06:13 Impression: No intracranial hemorrhage, mass, or acute infarct. Atrophy and chronic white matter changes, as above. Wrist X-Ray 01/20/25 06:13 Impression: Probable chronic fracture deformities of the distal radius and ulnar styloid process, as detailed above. No definite acute fracture. Renal Ultrasound 01/21/25 08:42 IMPRESSION: 1. Medical renal disease. 2. Mild bilateral hydronephrosis. No nephrolithiasis. Hip/Pelvis X-Ray 01/24/25 11:12 Impression: 1: Healing right acetabular and inferior pubic rami fractures with callus formation. Chest X-Ray 01/28/25 05:45 Impression: 1: Retrocardiac airspace consolidation which may represent atelectasis or pneumonia. No significant change. Modified Barium Swallow 01/29/25 13:33 IMPRESSION: Pharyngeal dysphagia with laryngeal penetration and aspiration with thin liquids. Please correlate with speech pathologist findings and specific feeding recommendations. Chest CT 01/29/25 16:18 IMPRESSION: 1. Grossly stable size and configuration of the 0.9 cm cavitary lesion in the superior segment of the right lower lobe. Differential includes but is not limited to an infectious process, necrotic malignancy or septic pulmonary embolus. Consider a biopsy or PET/CT. Short-term follow-up is recommended. 2. Moderate-sized left-sided pleural effusion. 3. Small right-sided pleural effusion. 4. Moderate-sized consolidation in the left lower lobe with air bronchograms. Recommend follow-up to resolution. 5. There is contrast within the stomach and proximal small bowel. 6. There is nonspecific fluid and fat stranding in the upper abdomen similar to the CT study from 01/20/2025. Labs Labs: Laboratory Results - last 24 hr 01/31/25 01/31/25 01/31/25 12:06 12:07 12:44 WBC RBC Hgb Hct MCV MCH MCHC RDW Plt Count MPV % Immature Plt Fraction Puncture Site Left radial ABG pH 7.450 ABG pCO2 27.5 L ABG pO2 68.6 L ABG PO2/FiO2 Ratio 2.45 ABG HCO3 18.7 L ABG O2 Saturation 94.8 L ABG O2 Content 14.1 L ABG Base Excess -4.2 A-a Gradient 98.6 Oxyhemoglobin 92.3 Total Hemoglobin 10.8 L O2 Delivery Device Nasal cannula O2 Liters/Min 2.0 FiO2 28 Sodium Potassium Chloride Carbon Dioxide Anion Gap BUN Creatinine Estim Creat Clear Calc Estimated GFR Glucose POC Capillary Glucose 61 L 90 Calcium Phosphorus Total Bilirubin AST ALT Alkaline Phosphatase C-Reactive Protein NT-Pro-B Natriuret Pep Total Protein Albumin Triglycerides Procalcitonin Random Vancomycin 01/31/25 01/31/25 01/31/25 15:08 18:07 23:38 WBC RBC Hgb Hct MCV MCH MCHC RDW Plt Count MPV % Immature Plt Fraction Puncture Site ABG pH ABG pCO2 ABG pO2 ABG PO2/FiO2 Ratio ABG HCO3 ABG O2 Saturation ABG O2 Content ABG Base Excess A-a Gradient Oxyhemoglobin Total Hemoglobin O2 Delivery Device O2 Liters/Min FiO2 Sodium Potassium Chloride Carbon Dioxide Anion Gap BUN Creatinine Estim Creat Clear Calc Estimated GFR Glucose POC Capillary Glucose 84 78 Calcium Phosphorus Total Bilirubin AST ALT Alkaline Phosphatase C-Reactive Protein NT-Pro-B Natriuret Pep Total Protein Albumin Triglycerides Procalcitonin Random Vancomycin 10.6 02/01/25 02/01/25 06:07 06:28 WBC 9.1 RBC 3.77 L Hgb 11.3 L Hct 36.9 L MCV 97.9 MCH 30.0 MCHC 30.6 L RDW 22.4 H Plt Count 58 L MPV 10.6 H % Immature Plt Fraction 2.8 Puncture Site ABG pH ABG pCO2 ABG pO2 ABG PO2/FiO2 Ratio ABG HCO3 ABG O2 Saturation ABG O2 Content ABG Base Excess A-a Gradient Oxyhemoglobin Total Hemoglobin O2 Delivery Device O2 Liters/Min FiO2 Sodium 140 Potassium 3.1 L Chloride 111 H Carbon Dioxide 17 L Anion Gap 12 BUN 47 H Creatinine 1.77 H Estim Creat Clear Calc 20 Estimated GFR 29 L Glucose 81 POC Capillary Glucose 89 Calcium 7.9 L Phosphorus 3.3 Total Bilirubin 1.2 AST 23 ALT 19 Alkaline Phosphatase 88 C-Reactive Protein 6.0 H NT-Pro-B Natriuret Pep > 13340 H Total Protein 5.8 L Albumin 2.9 L Triglycerides 150 Procalcitonin 29.5 Random Vancomycin
--- NOTE | 2025-02-01 10:14 | PCOTNOTE ---
Attempted OT evaluation. Awaiting consult to neurosurgery for recommendations regarding T-12 compression fx. Family considering hospice. Will continue to follow as able.
--- NOTE | 2025-02-01 10:20 | P.PNIM_ITS ---
Progress Note: A&P Assessment and Plan (1) Acute hypoxic respiratory failure: Code(s): J96.01 - Acute respiratory failure with hypoxia Status: Acute Assessment and Plan: Acute respiratory failure secondary to aspiration pneumonia pleural effusion upper GI bleed with underlying COPD 01/20: Intubated in the ER on admission 01/24 patient was successfully extubated, Post extubation patient was tachypneic. She was placed on BiPAP but her tachypnea and work of breathing worsened and she complained of being short of breath. Was reintubate about an hour post extubation on the same day 01/24: Reintubated -01/28: Extubated successfully to AVAPS. Tolerated AVAPS all day and all night -placed on 2 L nasal cannula with adequate O2 sats and no respiratory distress -will continue BiPAP/AVAPS while pt is sleeping -continue bronchodilators -BiPAP to avoid reintubation -01/30: High-flow nasal cannula -continue ceftriaxone, and Flagyl -ID and pulmonology is following 02/02/2025-discontinue vancomycin, start linezolid -check procalcitonin and CRP -will check chest x-ray in the morning tomorrow - (2) Acute upper GI bleeding: Code(s): K92.2 - Gastrointestinal hemorrhage, unspecified Status: Acute Assessment and Plan: Acute upper GI bleed 01/20 EGD showed reflux/erosive/ulcerative esophagitis and hiatal hernia, no variceal bleed Status post transfusion of multiple units of PRBC Coagulopathy cryo and FFP Hemoglobin appears to be now stable. continue monitoring hemoglobin and transfuse additional PRBC if needed continue IV PPI. Octreotide was discontinued GI following -01/31: Hemoglobin stable at 11.7. 9/2: Hemoglobin stable at 11.7 (3) Transaminitis: Code(s): R74.01 - Elevation of levels of liver transaminase levels Status: Acute Assessment and Plan: AST and ALT mildly elevated likely consistent with alcoholic liver disease. Hepatitis C antibody screen is positive. RNA quantitative is [id number] -LFTs have normalized, continue to monitor (4) Alcoholic cirrhosis of liver with ascites: Code(s): K70.31 - Alcoholic cirrhosis of liver with ascites Status: Acute Assessment and Plan: Patient has cirrhosis from alcohol liver disease with CT scan showing ascites (5) Acute kidney injury superimposed on stage 4 chronic kidney disease: Code(s): N17.9 - Acute kidney failure, unspecified; N18.4 - Chronic kidney disease, stage 4 (severe) Status: Acute Assessment and Plan: Baseline creatinine in mid 2 Patient was given IV fluids but now off due to concern of volume overload and patient has also received significant amount of blood products. Monitor urine output electrolytes and creatinine CT scans not show any obstruction or stone Renal ultrasound showed mild bilateral hydronephrosis without any stones Appreciate nephrology following the patient. Patient responded well to Lasix for volume overload Chest x-ray shows bilateral infiltrates, possible edema, pneumonia or atelectasis, will give additional dose of Lasix today phosphorus has normalized -creatinine is improving -01/31: Patient started on of normal saline due to rise in creatinine and sodium -02/01-will cut down the IV fluid (6) Coagulopathy: Code(s): D68.9 - Coagulation defect, unspecified Status: Acute Assessment and Plan: Coagulopathy secondary to cirrhosis and sepsis Status post cryo and platelets, and FFP (7) Sepsis: Code(s): A41.9 - Sepsis, unspecified organism Status: Acute Assessment and Plan: 01/30: Patient started on ceftriaxone, Flagyl and vancomycin due to sepsis Reviewed CT chest which shows cavitary lesion in right lower lobe. ID consulted Sepsis likely secondary to pneumonia which could be aspiration Blood cultures grew Staph hominis which is likely contaminant. Repeat blood culture today Currently on ceftriaxone, Flagyl and vanc will be switched to linezolid (8) Anemia: Code(s): D64.9 - Anemia, unspecified Status: Acute Assessment and Plan: Likely multifactorial anemia from iron deficiency and anemia of chronic kidney disease along with acute blood loss Patient received a dose of iron And she has received for units of PRBC. Hemoglobin appears to have stabilized Monitor and transfuse additional if needed Management of GI bleeding as above Epogen per Nephrology (9) Thrombocytopenia: Code(s): D69.6 - Thrombocytopenia, unspecified Status: Acute Assessment and Plan: Thrombocytopenia likely combination of sepsis and cirrhosis. 01/20 Platelet transfusion -continue to monitor platelet level (10) Alcohol abuse: Code(s): F10.10 - Alcohol abuse, uncomplicated Status: Acute Assessment and Plan: History of alcohol abuse. Off all sedation Continue thiamine and folic acid (11) Severe protein-calorie malnutrition: Code(s): E43 - Unspecified severe protein-calorie malnutrition Status: Acute Assessment and Plan: Appears Malnourished and cachectic. -off tube feeds, -patient had a modified barium swallow test done on 01/29, speech therapy recommended: pureed diet level 4 and mildly thick liquids level 2. ST to treat and reassess pt's ability to manage solids if dentures are found (12) Acetabular fracture: Qualifiers: Encounter type: initial encounter Fracture alignment: nondisplaced Fracture type: closed Laterality: right Sublocation of acetabulum: unspecified portion of acetabulum Qualified Code(s): S32.401A - Unspecified fracture of right acetabulum, initial encounter for closed fracture Code(s): S32.409A - Unspecified fracture of unspecified acetabulum, initial encounter for closed fracture Status: Acute Assessment and Plan: Orthopedics evaluate the patient . No further recommendations at this time (13) Distal radial fracture: Qualifiers: Encounter type: subsequent encounter Fracture type: closed Fracture morphology: unspecified fracture morphology Laterality: left Fracture healing: with nonunion Qualified Code(s): S52.502K - Unspecified fracture of the lower end of left radius, subsequent encounter for closed fracture with nonunion Code(s): S52.509A - Unspecified fracture of the lower end of unspecified radius, initial encounter for closed fracture Status: Acute Assessment and Plan: seen by orthopedics. Splint removed as per recommendations. Time Spent With Patient Time: 25 minutes Subjective Date/time seen: 02/01/25 10:20 Interval history: Patient is noted room air. She complains is shortness of breath. Denies fever or chills. She sleeps on that left side and she looks cachectic. Will get dietary consult Review of Systems Review of Systems: All systems reviewed & are unremarkable except as noted in HPI and below Exam Narrative: APPEARANCE: Cachectic, no acute distress EYES: EOMI HEENT: Normocephalic, atraumatic, OMM RESPIRATORY: No respiratory distress Clear to auscultation bilaterally with no rhonchi wheezing or rales. CARDIOVASCULAR: RRR, S1 and S2 without murmurs rubs or gallops. ABDOMINAL: Soft, nontender, nondistended, no rebound or guarding MSK: Moves her extremities spontaneously NEURO: Awake and alert. Following commands, speech normal, no focal deficits SKIN:: Warm, dry. No rashes lesions or abrasions PSYCHIATRIC: Normal affect/mood Objective Data Vital Signs Vital Signs: Vital Signs - 24 hr 01/31/25 12:00 01/31/25 12:00 01/31/25 12:00 Temperature 36.8 C Pulse Rate 84 86 Respiratory Rate 20 Blood Pressure 164/95 H Pulse Oximetry 91 93 Oxygen Delivery Nasal Cannula Oxygen Flow Rate 3 Fraction of Inspired Oxygen 01/31/25 14:00 01/31/25 14:22 01/31/25 14:22 Temperature Pulse Rate 88 86 86 Respiratory Rate 20 20 Blood Pressure Pulse Oximetry 94 Oxygen Delivery Nasal Cannula Oxygen Flow Rate 2 Fraction of Inspired Oxygen 01/31/25 14:32 01/31/25 16:00 01/31/25 16:00 Temperature 36.4 C Pulse Rate 85 87 Respiratory Rate 20 22 H Blood Pressure 129/73 Pulse Oximetry 97 97 Oxygen Delivery Nasal Cannula Oxygen Flow Rate 3 Fraction of Inspired Oxygen 01/31/25 16:00 01/31/25 18:00 01/31/25 19:20 Temperature 36.6 C Pulse Rate 87 86 89 Respiratory Rate 19 Blood Pressure 145/92 H Pulse Oximetry 94 Oxygen Delivery Oxygen Flow Rate Fraction of Inspired Oxygen 01/31/25 20:00 01/31/25 20:00 01/31/25 20:40 Temperature Pulse Rate 90 90 90 Respiratory Rate 16 16 Blood Pressure Pulse Oximetry 93 Oxygen Delivery Nasal Cannula Oxygen Flow Rate 2 Fraction of Inspired Oxygen 01/31/25 20:45 01/31/25 22:00 01/31/25 22:50 Temperature Pulse Rate 90 92 92 Respiratory Rate 16 16 Blood Pressure Pulse Oximetry 93 93 Oxygen Delivery Nasal Cannula High Flow Nasal Cannula Oxygen Flow Rate 2 2 Fraction of Inspired Oxygen 01/31/25 23:46 02/01/25 00:00 02/01/25 00:00 Temperature 36.5 C Pulse Rate 72 72 92 Respiratory Rate 17 17 Blood Pressure 164/92 H Pulse Oximetry 95 95 Oxygen Delivery High Flow Nasal Cannula Oxygen Flow Rate 2 Fraction of Inspired Oxygen 02/01/25 02:00 02/01/25 03:01 02/01/25 04:00 Temperature 36.4 C Pulse Rate 96 71 92 Respiratory Rate 17 17 Blood Pressure 171/98 H Pulse Oximetry 91 91 Oxygen Delivery High Flow Nasal Cannula Oxygen Flow Rate 2 Fraction of Inspired Oxygen 02/01/25 04:00 02/01/25 05:30 02/01/25 06:00 Temperature Pulse Rate 92 92 94 Respiratory Rate Blood Pressure Pulse Oximetry Oxygen Delivery Oxygen Flow Rate Fraction of Inspired Oxygen 02/01/25 07:25 02/01/25 07:33 02/01/25 08:00 Temperature 36.6 C Pulse Rate 89 80 88 Respiratory Rate 20 20 16 Blood Pressure 170/102 H Pulse Oximetry 97 Oxygen Delivery Oxygen Flow Rate Fraction of Inspired Oxygen Intake/Output Intake/Output: Intake & Output 01/29/25 01/30/25 01/31/25 02/01/25 23:59 23:59 23:59 23:59 Intake Total 240 1710 3020 Output Total 650 1050 850 450 Balance -742 067 2272 -450 Meds/Results Medications: Active Medications Generic Name Dose Route Start Last Admin Trade Name Freq PRN Reason Stop Dose Admin Acetaminophen 650 mg 01/23/25 14:11 01/31/25 08:02 Acetaminophen 325 Mg Tablet FEED TUBE 650 mg Q4H PRN Administration Fever 1-3 Albuterol/Ipratropium 3 ml 01/26/25 14:00 02/01/25 07:22 Ipratropium 0.5 Mg/Albuterol Sulfate 2.5 Mg Ampul.Neb 3 Ml INHALATION 3 ml Q6HRT MEENA Administration Amlodipine Besylate 10 mg 01/31/25 09:00 02/01/25 09:34 Amlodipine Besylate 10 Mg Tablet FEED TUBE 10 mg DAILY MEENA Administration Dextrose 12.5 gm 01/20/25 08:23 01/29/25 11:47 Dextrose 50% 25 Gm/50 Ml Syringe IV PUSH 12.5 gm PRN PRN Administration Hypoglycemia Protocol Folic Acid 1 mg 01/20/25 09:00 02/01/25 09:33 Folic Acid 1 Mg/0.2 Ml Inj IV PUSH 1 mg QAM MEENA Administration Glucagon 1 mg 01/20/25 08:23 Glucagon For Inj 1 Mg Vial IM PRN PRN Hypoglycemia Protocol Glucose 15 gm 01/20/25 08:23 Glucose Oral Gel 15 Gm Of Glucse In 37.5 Gm Tube PO PRN PRN Hypoglycemia Protocol Guaifenesin 1,200 mg 02/01/25 10:00 Guaifenesin 12 Hr 600 Mg Tabcr PO Q12HR MEENA Hydralazine HCl 20 mg 01/24/25 03:34 01/30/25 02:48 Hydralazine Hcl 20 Mg/Ml Vial IV PUSH 20 mg Q4H PRN Administration Hypertension Hydralazine HCl 50 mg 02/01/25 14:00 Hydralazine Hcl 25 Mg Tablet PO Q8HR [facility] Dextrose 1,000 mls @ 100 mls/hr 01/20/25 08:23 Dextrose 5% 1,000 Ml IVPB PRN PRN Hypoglycemia Protocol Sodium Bicarbonate 50 meq/ 1,050 mls @ 75 mls/hr 02/01/25 11:00 Sterile Water IV CONT .Q14H [facility] Insulin Aspart 3 - 6 units 01/20/25 12:00 02/01/25 06:09 Insulin Aspart (*Bkc) 100 Units/Ml SUB-Q Not Given Q6HR [facility] Protocol Labetalol HCl 20 mg 01/23/25 09:31 02/01/25 05:30 Labetalol Hcl Inj 100 Mg/20 Ml Vial IV PUSH 20 mg Q4H PRN Administration SBP > 160 and HR> 60 -1st choice Pantoprazole Sodium 40 mg 01/21/25 09:00 02/01/25 09:32 Pantoprazole Sodium Iv 40 Mg Vial IV PUSH 40 mg Q12HR MEENA Administration Perflutren Lipid Microsphere 0 ml 01/29/25 14:20 Perflutren Lipid Microspheres 1.5 Ml Vial Diluted To 10 Ml Total Volume IV PUSH 02/01/25 14:20 ONCE PRN adequate visualization Protocol Potassium Chloride 20 meq 02/02/25 08:00 Potassium Chloride 20 Meq Er Tablet PO DAILY@0800 [facility] Thiamine HCl 100 mg 01/20/25 09:00 02/01/25 09:32 Thiamine Hcl 200 Mg/2 Ml Vial IV PUSH 100 mg QAM MEENA Administration Vancomycin HCl 1 each 01/30/25 14:19 Vancomycin For Acute Kidney Injury IVPB PRN PRN Vancomycin Protocol Radiology Results: ITS Impressions Abdomen X-Ray 01/20/25 05:42 Impression: NG tube in satisfactory position. Small left pleural effusion. Chest/Abdomen/Pelvis CT 01/20/25 05:48 Impression: Moderate to large left pleural effusion with extensive left lower lobe atelectasis. Small right pleural effusion. 9 mm spiculated nodule in the right lower lobe, as detailed above, indeterminate. CT scan in 3 months advised. Consider PET/CT or attempted tissue sampling as indicated. Moderate emphysema. No definite evidence for GI bleed, but evaluation is limited without IV contrast and with oral contrast on board. Consider follow-up CT angiogram of the bowel to further evaluate for GI bleed, as indicated. Moderate abdominopelvic ascites. T12 compression fracture, somewhat age indeterminate, but new since 06/20/2024. Fractures of the right anterior acetabulum at the junction of the right superior pubic ramus and of the right inferior pubic ramus, acute to subacute in nature. Head CT 01/20/25 06:13 Impression: No intracranial hemorrhage, mass, or acute infarct. Atrophy and chronic white matter changes, as above. Wrist X-Ray 01/20/25 06:13 Impression: Probable chronic fracture deformities of the distal radius and ulnar styloid process, as detailed above. No definite acute fracture. Renal Ultrasound 01/21/25 08:42 IMPRESSION: 1. Medical renal disease. 2. Mild bilateral hydronephrosis. No nephrolithiasis. Hip/Pelvis X-Ray 01/24/25 11:12 Impression: 1: Healing right acetabular and inferior pubic rami fractures with callus formation. Chest X-Ray 01/28/25 05:45 Impression: 1: Retrocardiac airspace consolidation which may represent atelectasis or pneumonia. No significant change. Modified Barium Swallow 01/29/25 13:33 IMPRESSION: Pharyngeal dysphagia with laryngeal penetration and aspiration with thin liquids. Please correlate with speech pathologist findings and specific feeding recommendations. Chest CT 01/29/25 16:18 IMPRESSION: 1. Grossly stable size and configuration of the 0.9 cm cavitary lesion in the superior segment of the right lower lobe. Differential includes but is not limited to an infectious process, necrotic malignancy or septic pulmonary embolus. Consider a biopsy or PET/CT. Short-term follow-up is recommended. 2. Moderate-sized left-sided pleural effusion. 3. Small right-sided pleural effusion. 4. Moderate-sized consolidation in the left lower lobe with air bronchograms. Recommend follow-up to resolution. 5. There is contrast within the stomach and proximal small bowel. 6. There is nonspecific fluid and fat stranding in the upper abdomen similar to the CT study from 01/20/2025. Labs Labs: Laboratory Results - last 24 hr 01/31/25 01/31/25 01/31/25 12:06 12:07 12:44 WBC RBC Hgb Hct MCV MCH MCHC RDW Plt Count MPV % Immature Plt Fraction Puncture Site Left radial ABG pH 7.450 ABG pCO2 27.5 L ABG pO2 68.6 L ABG PO2/FiO2 Ratio 2.45 ABG HCO3 18.7 L ABG O2 Saturation 94.8 L ABG O2 Content 14.1 L ABG Base Excess -4.2 A-a Gradient 98.6 Oxyhemoglobin 92.3 Total Hemoglobin 10.8 L O2 Delivery Device Nasal cannula O2 Liters/Min 2.0 FiO2 28 Sodium Potassium Chloride Carbon Dioxide Anion Gap BUN Creatinine Estim Creat Clear Calc Estimated GFR Glucose POC Capillary Glucose 61 L 90 Calcium Phosphorus Total Bilirubin AST ALT Alkaline Phosphatase C-Reactive Protein NT-Pro-B Natriuret Pep Total Protein Albumin Triglycerides Procalcitonin Random Vancomycin 01/31/25 01/31/25 01/31/25 15:08 18:07 23:38 WBC RBC Hgb Hct MCV MCH MCHC RDW Plt Count MPV % Immature Plt Fraction Puncture Site ABG pH ABG pCO2 ABG pO2 ABG PO2/FiO2 Ratio ABG HCO3 ABG O2 Saturation ABG O2 Content ABG Base Excess A-a Gradient Oxyhemoglobin Total Hemoglobin O2 Delivery Device O2 Liters/Min FiO2 Sodium Potassium Chloride Carbon Dioxide Anion Gap BUN Creatinine Estim Creat Clear Calc Estimated GFR Glucose POC Capillary Glucose 84 78 Calcium Phosphorus Total Bilirubin AST ALT Alkaline Phosphatase C-Reactive Protein NT-Pro-B Natriuret Pep Total Protein Albumin Triglycerides Procalcitonin Random Vancomycin 10.6 02/01/25 02/01/25 06:07 06:28 WBC 9.1 RBC 3.77 L Hgb 11.3 L Hct 36.9 L MCV 97.9 MCH 30.0 MCHC 30.6 L RDW 22.4 H Plt Count 58 L MPV 10.6 H % Immature Plt Fraction 2.8 Puncture Site ABG pH ABG pCO2 ABG pO2 ABG PO2/FiO2 Ratio ABG HCO3 ABG O2 Saturation ABG O2 Content ABG Base Excess A-a Gradient Oxyhemoglobin Total Hemoglobin O2 Delivery Device O2 Liters/Min FiO2 Sodium 140 Potassium 3.1 L Chloride 111 H Carbon Dioxide 17 L Anion Gap 12 BUN 47 H Creatinine 1.77 H Estim Creat Clear Calc 20 Estimated GFR 29 L Glucose 81 POC Capillary Glucose 89 Calcium 7.9 L Phosphorus 3.3 Total Bilirubin 1.2 AST 23 ALT 19 Alkaline Phosphatase 88 C-Reactive Protein 6.0 H NT-Pro-B Natriuret Pep > 94433 H Total Protein 5.8 L Albumin 2.9 L Triglycerides 150 Procalcitonin 29.5 Random Vancomycin Quality VTE Prophylaxis VTE prophylaxis: mechanical ordered
[2025-02-01] MEDS: guaiFENesin 12 HR 600 MG TABCR 1200 MG PO ×2 (10:59→21:11)
--- NOTE | 2025-02-01 12:47 | PC.NURSE ---
Hospice to room speaking with patient and sister, Avani her POA. Patient decided to go Hospice at discharge and DNR while in-patient. Dr. Walls phoned and informed. Per Dr. Walls OK to down grade to Med-Surg and OK to not give abx ordered. Informed patient has also refused to take any medications. verbalized understanding. Patient continues to rest in bed and voice no complaints or concerns at this time. Call light in reach. Will continue to monitor. Aayush Carrillo RN
--- NOTE | 2025-02-01 14:10 | PC.NURSE ---
This patient, Jaci Lee, was transferred to [facility] on 02/01/25 at 1411. Personal belongings sent with patient. Report given to RHONDA Jaimes. Appropriate documentation sent with patient. Patient resting in bed with no complaints or concerns at this time. Call light in reach. Aayush Carrillo RN
--- NOTE | 2025-02-01 14:29 | PC.NURSE ---
Transfer received from IMU per hospital bed.
--- NOTE | 2025-02-01 18:40 | PC.NURSE ---
Blood sugar 77. No complaints voiced. Encouraged patient to drink Ensure that came with meal.
[2025-02-01] MEDS: ACETAMINOPHEN 325 MG TABLET 650 MG FEED TUBE (21:11)
[2025-02-01] MEDS: LINEZOLID 600 MG TABLET PO (21:11)
[2025-02-01] MEDS: HYDROcodone/acetaminophen (*CRX) 5-325 MG TABLET 1 TAB PO (22:52)
[2025-02-02] VITALS (7 sets, daily range): BP systolic 131–180; BP diastolic 76–108; PULSE 80–105; RESP 16–22; TEMP 36.5–36.8; O2SAT 94–97
[2025-02-02 05:25] LABS: Hematocrit 40.2 % (37.0-47.0); Hemoglobin 12.4 g/dL (12.0-15.0); Immature Platelet Fraction Pct 3.2 % (0.9-11.2); Mean Corpuscular HGB Conc 30.8 g/dl (32-36); Mean Corpuscular Hemoglobin 29.5 pg (26-34); Mean Corpuscular Volume 95.7 fl (80-100); Platelet Count Result 74 k/mm3 (150-375); Red Blood Count 4.20 M/mm3 (4.2-5.4); White Blood Count 7.4 K/mm3 (4.5-10.0)
[2025-02-02 05:52] LABS: Albumin Level 3.4 g/dL (3.5-5.1); Anion Gap 12 mmol/L (4-12); Blood Urea Nitrogen 45 mg/dL (7-17); CRP 4.9 mg/dL (<1.0); Calcium 8.3 mg/dL (8.4-10.2); Carbon Dioxide 16 mmol/L (22-30); Chloride 109 mmol/L (98-107); Estimated CRCL calculation 19 ml/min; Estimated Glomerular Filt Rate 28; Glucose 93 mg/dL (65-110); Potassium 3.1 mmol/L (3.4-5.0); Sodium 137 mmol/L (137-145)
[2025-02-02 05:54] LABS: Procalcitonin 24.3 ng/mL
[2025-02-02 05:57] LABS: NT Pro B Type Natriuretic Pept > 30000 pg/mL (19.9-100)
--- NOTE | 2025-02-02 08:06 | PM.PNPUL ---
Progress Note: A&P Assessment and Plan (1) COPD (chronic obstructive pulmonary disease): Code(s): J44.9 - Chronic obstructive pulmonary disease, unspecified Status: Acute Assessment and Plan: Patient carries a history of tobacco use, she tells me she was diagnosed with COPD approximately 10 years ago with PFTs. I do not have the PFT results. CT scan of the chest on 01/20/2025 demonstrates moderate apical predominant centrilobular emphysema and mild apical predominant paraseptal emphysema. She cannot tell me if she has been on inhalers previously. home medicine list does not list inhalers. on admission white blood cell count 11.2, eosinophils 0%. 01/29/2025: Patient is awake but encephalopathic, she is in no respiratory distress. Patient is on room air with saturations 95%. She is afebrile with a last fever of 01/27 at 6:00 a.m.. Her white blood cell count is 6.1, creatinine is 2.06. Yesterday she diuresed 120 mL and cumulative she is -6 mL since admission. Her weight today is 39.7 kg. Chest x-ray yesterday demonstrated ET tube with hyperinflation and retrocardiac infiltrate. the patient empirically was placed on noninvasive ventilation post extubation and I agree with that for tonight as long as she tolerates this. I placed her on the noninvasive ventilator with the AVAPS mode and adjusted the settings to comfort resulting in a rate of 14, tidal volume 450, EPAP 5, minimum inspiratory pressure 6, maximal inspiratory pressure 20, inspiratory time 1.0, rise of 5 which is the slowest and 28% FiO2. Later in the day patient had an echocardiogram with LVEF 655-60%, grade 1 diastolic dysfunction, mild left atrial enlargement, mild mitral regurg, mild aortic stenosis with a valve area of 1.8 cm, mean gradient 9, normal RV size and function, normal right atrial size, moderate tricuspid regurg with PASP of 53. Plan: I do not see any evidence of current COPD exacerbation, pneumonia, bronchitis. Agree with Jg Q.6 hours. No indication for inhaled steroids or systemic steroids at this time. Goal saturation 90-94%. Currently she is on room air. It is unclear if the patient has chronic hypercarbic respiratory failure. Would continue empiric noninvasive ventilation with the AVAPS mode as above 1 more night as long as she tolerates this well. If she is struggling to tolerate this I would not press the issue and just place her on room air or nasal cannula keep saturations 90-94%. would try her without noninvasive ventilation the night of 01/30/2025 and when she is off the noninvasive ventilator for 24 hours will check a blood gas to assess for chronic hypercarbic respiratory failure. will order echocardiogram to assess LV function, RV function, and pulmonary pressures. Inpatient pulmonary consult services will resume on 02/01/2025, call with questions. 01/31/2025: ABG off of BiPAP for greater than 24 hours and on 2 L nasal cannula was 7.4 10/28/2068. No evidence of chronic hypercarbic respiratory failure. 02/01/2025: Patient remains debilitated, she cannot sit herself up in bed, she cannot cough. Overall she says she feels a little bit better. She still has shortness of breath at rest. Her cough is more than baseline and unchanged with no phlegm and no hemoptysis. Her last fever was 830 at 2:50 a.m. and she has been afebrile since then. When I entered the room she was on 2 L nasal cannula saturations 97%. I placed her on room air and her saturations were 93%. Her white blood cell count is 9.1, her BUN is 47, creatinine is 1.77, her bicarb is 17. Her procalcitonin has increased from 1.5 on 01/20/2025 to a value of 29.5 today. Her BNP is greater than 30,000. her CRP has increased from 0.9 on 01/20/2025 to a value of 6.0 today. yesterday she was positive 2.1 L, cumulative she is positive 2.5 L. Her weight today is 41.6. Patient had an overnight oximetry on 2 L nasal cannula with recording duration of 5 hours and 59 minutes, average saturation 94%. Low saturation 88%, time with saturation less than or equal to 88% was 0 minutes, oxygen desaturation index 1.6. Plan: patient has no wheezing and no evidence of COPD exacerbation. Continue DuoNebs q.6 hours. Patient had low eosinophils on presentation and no wheezing currently. I will discontinue budesonide nebulizers. Patient states she has minimal phlegm but maybe she is just not expectorating. I will add guaifenesin 1200 mg p.o. b.i.d. and a Cornet flutter valve today. Overnight oximetry on 2 L nasal cannula with adequate oxygenation and I will repeat an overnight oximetry tonight on room air. Patient has bilateral pleural effusions left greater than right with a BNP greater than 30,000 as well as renal insufficiency that has improved with IV fluids. Discussed with Renal and will cut back on IV fluids today. Will check chest x-ray tomorrow. 02/02/2025: When asked the patient how she is doing she said I do not know. I asked her if she was doing better or worsen she said I do not know. She did deny any rest shortness of breath, cough, phlegm or hemoptysis. When asked her how far she could walk 1 month ago she said I do not know. She said 6 months ago she could walk half a block. Currently patient is on room air with saturations 93%. White blood cell count 7.4, creatinine 1.84, BUN 45, serum bicarb 16, Procalcitonin has decreased from 29.5 on 02/01/2025 to 24.3 today. CRP is decreased from 6.0 on 02/01/2025 to 4.9 today. BNP remains greater than 30,000 today. Yesterday she was -175 mL, cumulative she has +4.1 L since admission. Her weight today is 42.5 kg. Patient had an overnight oximetry on room air with recording duration 7 hours and 24 minutes. Average saturation 91%. Low saturation 88%. Time with saturation less than or equal to 88% was 1 minute. Oxygen desaturation index 0. Chest x-ray today with bibasilar interstitial alveolar infiltrates, Congestion, retrocardiac infiltrate, small right and moderate left effusion and overall no change from 01/28/2025. Plan: continue DuoNebs q.6 hours, guaifenesin 1200 p.o. b.i.d. and Cornet flutter valve (patient was too confused to use this last night). Chest x-ray with congestion and bilateral pleural effusions, BNP remains greater than 30,000. IV fluids decreased yesterday and creatinine up a little bit from 1.77 to 1.84. she is on room air now. Would not recommend thoracentesis at this time. Would begin gentle diuresis per Renal and hospitalist teams. Discussed with Dr Rossi, will follow with you. (2) Cavitary lesion of lung: Code(s): J98.4 - Other disorders of lung Status: Acute Assessment and Plan: Patient has a 9 mm spiculated nodule with a cavity in the superior segment of the right lower lobe and was treated with Zosyn for 7 days which ended 01/26/25. 01/29/25: plan: I will obtain a CT scan of the chest to reassess this cavity. Would favor a more prolonged course of antibiotics if the cavity exist such as Augmentin for another 14 days with follow-up CT scan in about 6-8 weeks. Later in the day patient had a CT chest compared to 01/20/2025 there was unchanged moderate apical predominant centrilobular emphysema and mild apical predominant paraseptal emphysema, unchanged small right pleural effusion, unchanged moderate left effusion with left lower lobe atelectasis versus infiltrate. Unchanged 0.9 mm cavity in the superior segment of the right lower lobe. 01/30/25: patient started on vancomycin, ceftriaxone and Flagyl. 02/01/2025: Patient's last fever was 01/30/2025 at 2:50 a.m.. She has no leukocytosis at 9.1 today, her CRP is 6 and her procalcitonin is 29.5. Spoke with Infectious Disease team and patient will be switched to ceftriaxone, Zyvox and Flagyl. Plan: Favor treatment of 0.9 mm cavity in the superior segment of the right lower lobe for total of 3 weeks of antibiotics from 01/20/2025. Overall her CT scan on 01/29/2025 compared to 01/20/2025 essentially unchanged. There is no air-fluid level or progression of the small cavity at 0.9 mm in the superior segment of the right lower lobe. Will repeat CRP and procalcitonin in the morning. Will repeat chest x-ray in the morning. 02/02/2025: Patient is afebrile. White blood cell count 7.4, creatinine 1.84, BUN 45, serum bicarb 16, Procalcitonin has decreased from 29.5 on 02/01/2025 to 24.3 today. CRP is decreased from 6.0 on 02/01/2025 to 4.9 today. Chest x-ray today with bibasilar interstitial alveolar infiltrates, Congestion, retrocardiac infiltrate, small right and moderate left effusion and overall no change from 01/28/2025. Plan: Plan on treating total 21 days of antibiotics from 01/20/25. Currently on linezolid from 01/31 with a stop date of 02/10/2025. Currently on Flagyl p.o. with a stop date 02/10/2025, currently on ceftriaxone since 01/30/2025. Infectious disease consult team following. Subjective Date/time seen: 02/02/25 08:06 Interval history: 01/29/2025: This is a new pulmonary consult for COPD 59-year-old with a history of alcoholism, cirrhosis, CKD with creatinine 1.49 on 06/20/2024, tobacco use, hepatitis-C, chronic encephalopathy, malnutrition, tobacco use and COPD. Patient is currently transferred out of the ICU and she knows her name and the year but not the month and does not know the hospital or the president and the and I did states. Patient had a CT scan of the abdomen on 06/10/2024 which showed moderate bilateral pleural effusions. 01/20/2025: patient presented to the emergency department with hematemesis since 01/19/2025. She was not protecting her airway in the emergency department and was intubated. Her blood pressure was 109/84, heart rate 86, respirations 16. White blood cell count 11.2 with eosinophils 0, creatinine 3.43, BUN 109, CRP 0.9, procalcitonin 1.2, lactic acid 2.0. Patient had a CT scan chest abdomen and pelvis and in comparison to 06/20/2024 the right pleural effusion had decreased, the left effusion was unchanged and moderate with left lower lobe atelectasis, There was a 9 mm cavity in the superior segment RLL, moderate apical predominant centrilobular emphysema and mild apical predominant paraseptal emphysema. She was started on Protonix, octreotide, vancomycin and Rocephin empirically. EGD demonstrated reflux erosive esophagitis. Antibiotics were changed to Zosyn. Of note patient had a fractured right acetabulum, right inferior pubic rami fracture, mild abdominal pelvic ascites and later was found to have a fractured left wrist. Orthopedics was consulted and no surgical intervention was performed or planned. 01/24/2025 patient was extubated but had increased work of breathing and was reintubated 1 hour later. 01/26/2025 Zosyn was discontinued. 01/28/2025: Patient was extubated after successful spontaneous breathing trial on CPAP 5 PSV 8 with a blood gas of 7.49/36/93. Patient was placed on noninvasive ventilation with the AVAPS mode overnight. 01/29/2025: Patient is awake but encephalopathic, she is in no respiratory distress. Patient is on room air with saturations 95%. She is afebrile with a last fever of 827 at 6:00 a.m.. Her white blood cell count is 6.1, creatinine is 2.06. Yesterday she diuresed 120 mL and cumulative she is -6 mL since admission. Her weight today is 39.7 kg. Chest x-ray yesterday demonstrated ET tube with hyperinflation and retrocardiac infiltrate. The patient empirically was placed on noninvasive ventilation post extubation and I agree with that for tonight as long as she tolerates this. I placed her on the noninvasive ventilator with the AVAPS mode and adjusted the settings to comfort resulting in a rate of 14, tidal volume 450, EPAP 5, minimum inspiratory pressure 6, maximal inspiratory pressure 20, inspiratory time 1.0, rise of 5 which is the slowest and 28% FiO2. Later in the day patient had an echocardiogram with LVEF 655-60%, grade 1 diastolic dysfunction, mild left atrial enlargement, mild mitral regurg, mild aortic stenosis with a valve area of 1.8 cm, mean gradient 9, normal RV size and function, normal right atrial size, moderate tricuspid regurg with PASP of 53. Later in the day patient had a CT chest compared to 01/20/2025 there was unchanged moderate apical predominant centrilobular emphysema and mild apical predominant paraseptal emphysema, unchanged small right pleural effusion, unchanged moderate left effusion with left lower lobe atelectasis versus infiltrate. Unchanged 0.9 mm cavity in the superior segment of the right lower lobe. 01/30/2025: Vancomycin, ceftriaxone and Flagyl started. 01/31/25: Care coordination note states spoke with sister and plans for hospice consult and residential placement. 02/01/2025: Patient remains debilitated, she cannot sit herself up in bed, she cannot cough. Overall she says she feels a little bit better. She still has shortness of breath at rest. Her cough is more than baseline and unchanged with no phlegm and no hemoptysis. Her last fever was 830 at 2:50 a.m. and she has been afebrile since then. When I entered the room she was on 2 L nasal cannula saturations 97%. I placed her on room air and her saturations were 93%. Her white blood cell count is 9.1, her BUN is 47, creatinine is 1.77, her bicarb is 17. Her procalcitonin has increased from 1.5 on 01/20/2025 to a value of 29.5 today. Her BNP is greater than 30,000. her CRP has increased from 0.9 on 01/20/2025 to a value of 6.0 today. yesterday she was positive 2.1 L, cumulative she is positive 2.5 L. Her weight today is 41.6. Patient had an overnight oximetry on 2 L nasal cannula with recording duration of 5 hours and 59 minutes, average saturation 94%. Low saturation 88%, time with saturation less than or equal to 88% was 0 minutes, oxygen desaturation index 1.6. 02/02/2025: When asked the patient how she is doing she said I do not know. I asked her if she was doing better or worsen she said I do not know. She did deny any rest shortness of breath, cough, phlegm or hemoptysis. When asked her how far she could walk 1 month ago she said I do not know. She said 6 months ago she could walk half a block. Currently patient is on room air with saturations 93%. White blood cell count 7.4, creatinine 1.84, BUN 45, serum bicarb 16, Procalcitonin has decreased from 29.5 on 02/01/2025 to 24.3 today. CRP is decreased from 6.0 on 02/01/2025 to 4.9 today. BNP remains greater than 30,000 today. Yesterday she was -175 mL, cumulative she has +4.1 L since admission. Her weight today is 42.5 kg. Patient had an overnight oximetry on room air with recording duration 7 hours and 24 minutes. Average saturation 91%. Low saturation 88%. Time with saturation less than or equal to 88% was 1 minute. Oxygen desaturation index 0. Chest x-ray today with bibasilar interstitial alveolar infiltrates, Congestion, retrocardiac infiltrate, small right and moderate left effusion and overall no change from 01/28/2025. DATA: 01/29/25: Echo Summary 1. Complete two-dimensional, color flow and Doppler transthoracic echocardiogram is performed. 2. Left ventricular chamber dimension is normal. 3. Left ventricular systolic function is normal, estimated at 55-60. 4. There is mild concentric increased left ventricular wall thickness. 5. The left ventricular diastolic function is grade I diastolic dysfunction. 6. E/e' 9 is minimally elevated. 7. Left atrial chamber dimension is moderately enlarged. 8. There is mild aortic valve sclerosis. 9. There is mild aortic valve stenosis based on a peak velocity of 214 cm/s, mean gradient of 9 mmHg, and aortic valve area of 1.8 cm2. 10. There is mild mitral valve regurgitation. 11. There is mild tricuspid valve regurgitation. 12. Moderate pulmonary hypertension, estimated pulmonary arterial systolic pressure is 53 mmHg. Right Ventricle Right ventricular chamber dimension is normal. Right ventricular systolic function is normal and with normal TAPSE 1.8 cm. Right Atria Right atrial chamber dimension is normal. 01/29/25: EXAMINATION: CT diagnostic chest wo con DATE: 01/29/2025 16:11 INDICATION: Right upper lobe cavity TECHNIQUE: Computed tomography (CT) of the chest was performed without intravenous contrast. The dose-length product was 142.17 mGy-cm. COMPARISON: CT chest abdomen and pelvis 01/20/2025 FINDINGS: Study is slightly limited due to motion artifact. No enlarged mediastinal or hilar lymph nodes. Heart is mildly moderately enlarged, unchanged. There are a few coronary artery calcifications. There is contrast noted in the stomach and proximal small bowel. There is nonspecific fluid and fat stranding in the upper abdomen similar to the study from 01/20/2025. Thoracic aorta is partially calcified but is not aneurysmal. Small right-sided pleural effusion. Moderate-sized left-sided pleural effusion. No pneumothorax. Grossly stable moderate centrilobular emphysema.Stable 1.9 cm bulla in the right lung apex. Grossly stable size and configuration of the 0.9 cm cavitary lesion in the superior segment of the right lower lobe. Moderate-sized consolidation in the left lower lobe with air bronchograms. Mild biapical scarring. Bones appear osteopenic. Multilevel degenerative change in the visualized spine. Stable compression fracture in what appears to be T12 vertebral body. Stable compression fracture of T6. IMPRESSION: 1. Grossly stable size and configuration of the 0.9 cm cavitary lesion in the superior segment of the right lower lobe. Differential includes but is not limited to an infectious process, necrotic malignancy or septic pulmonary embolus. Consider a biopsy or PET/CT. Short-term follow-up is recommended. 2. Moderate-sized left-sided pleural effusion. 3. Small right-sided pleural effusion. 4. Moderate-sized consolidation in the left lower lobe with air bronchograms. Recommend follow-up to resolution. 5. There is contrast within the stomach and proximal small bowel. 6. There is nonspecific fluid and fat stranding in the upper abdomen similar to the CT study from 01/20/2025. 01/29/25: modified barium swallow FINDINGS: Oral stage: Adequate function. Pharyngeal stage: Reduced laryngeal elevation. There is laryngeal penetration with aspiration with thin liquids.. Cervical/esophageal stage: Adequate function. IMPRESSION: Pharyngeal dysphagia with laryngeal penetration and aspiration with thin liquids. Impression: Moderate/severe dysphagia characterized by the instance of silent aspiration of thin liquids. Recommendation: pureed diet level 4 and mildly thick liquids level 2. ST to treat and reassess pt's ability to manage solids if dentures are found. 01/28/25: XR chest 1V portable 01/28/2025 05:39 Indication: Respiratory failure Procedure: AP portable chest Comparison: Comparison to multiple prior studies sequentially, with oldest reviewed study dated 01/24/2025. Findings: Cardiomegaly. Persistent retrocardiac airspace consolidation. No significant effusion. No pneumothorax. Endotracheal tube tip 3.2 cm above the aylin. Right IJ central line tip in the SVC. Impression: 1: Retrocardiac airspace consolidation which may represent atelectasis or pneumonia. No significant change. 01/20/2025: Clinical Indication: GI bleed CT Scan of the Chest, Abdomen, and Pelvis without Contrast: Technique: Contiguous sections were acquired throughout the chest, abdomen, and pelvis without IV contrast administration. Dose reduction technique was used on this scan by utilizing automated exposure control and iterative reconstruction technique. The dose-length product (DLP) was 267.47 mGy-cm. Comparison: 06/20/2024 Findings: Endotracheal tube and NG tube are in place. There is no evidence of any significant mediastinal, hilar or axillary lymphadenopathy. The mediastinal soft tissues appear normal. No pericardial effusion. Moderate to large left pleural effusion present. There is extensive left lower lobe atelectasis. Small right pleural effusion present. There is a 9 mm spiculated nodular opacity with central cavitation in the right lower lobe (axial image 85). Moderate emphysema present. There is right apical scarring. The liver, spleen, pancreas, gallbladder, adrenals and kidneys are within normal limits. No evidence of aortic aneurysm. No lymphadenopathy. There is probable oral contrast on board. No definite evidence for GI bleed identified. No bowel obstruction or bowel wall thickening evident. Mclean catheter in place. No pelvic mass seen. Moderate abdominopelvic ascites present. Moderate T12 compression fracture deformity is present, new from prior exam. There is acute fracture of the anterior acetabulum at the junction with the right superior pubic ramus. There is additional fracture inferior pubic ramus. These fractures are acute to subacute in appearance. Impression: Moderate to large left pleural effusion with extensive left lower lobe atelectasis. Small right pleural effusion. 9 mm spiculated nodule in the right lower lobe, as detailed above, indeterminate. CT scan in 3 months advised. Consider PET/CT or attempted tissue sampling as indicated. Moderate emphysema. No definite evidence for GI bleed, but evaluation is limited without IV contrast and with oral contrast on board. Consider follow-up CT angiogram of the bowel to further evaluate for GI bleed, as indicated. Moderate abdominopelvic ascites. T12 compression fracture, somewhat age indeterminate, but new since 06/20/2024. Fractures of the right anterior acetabulum at the junction of the right superior pubic ramus and of the right inferior pubic ramus, acute to subacute in nature. Review of Systems Review of Systems: ROS unobtainable: Yes unobtainable due to mental status Constitutional: Constitutional: Reports no additional constitutional complaints Eyes: Eyes: Reports no additional eye complaints ENT: Reports system reviewed and no additional complaints, except as documented Cardiovascular: Cardiovascular: Reports no additional cardiovascular complaints Respiratory: Respiratory: Reports no additional respiratory complaints Gastrointestinal: Gastrointestinal: Reports no additional gastrointestinal complaints Musculoskeletal: Musculoskeletal: Reports no additional musculoskeletal complaints Neurologic: Reports system reviewed and no additional complaints, except as documented Psychiatric: Psychiatric: Reports no additional psychiatric complaints Endocrine: Endocrine: Reports no additional endocrine complaints Hematologic/Lymphatic: Hematologic/Lymphatic: Reports no additional hematologic/lymphatic complaints Allergic/Immunologic: Allergic/Immunologic: Reports no additional allergic/immunologic complaints Exam Const: General: cooperative, comfortable and no acute distress Orientation/consciousness: oriented to person, oriented to place and oriented to time Other: Cachectic, Cannot pull herself up in bed, extremely poor ineffective cough. HENMT: Head: normal to inspection Ears: hearing grossly normal bilaterally Eyes: General: appearance normal, both eyes and all related structures Neck: Neck: normal visual inspection Chest: Chest palpation & inspection: normal inspection of the chest Resp: Effort & Inspection: normal respiratory effort and able to speak in complete sentences Auscultation: no crackles, no rales, no rhonchi, no wheezes and diminished lung sounds Other: decreased breath sounds throughout Cardio: Jugular venous distension: no JVD GI: Inspection: normal to inspection Skin: General skin exam: normal color Neuro: General: oriented to person, oriented to place and oriented to time Extrem: General: normal to inspection Other: no edema Cachectic Psych: Appearance: grossly normal Objective Data Vital Signs Vital Signs: Vital Signs - 24 hr 02/01/25 13:20 02/01/25 13:20 02/01/25 13:29 Temperature Pulse Rate 87 82 Respiratory Rate 16 16 Blood Pressure Pulse Oximetry 90 Oxygen Delivery Room Air 02/01/25 14:46 02/01/25 20:25 02/01/25 20:30 Temperature 36.4 C Pulse Rate 97 80 Respiratory Rate 22 H 16 Blood Pressure 152/99 H Pulse Oximetry 93 Oxygen Delivery Room Air 02/01/25 20:39 02/01/25 22:01 02/02/25 05:35 Temperature 36.5 C Pulse Rate 87 105 H Respiratory Rate 16 18 Blood Pressure 180/108 H Pulse Oximetry 90 94 Oxygen Delivery Room Air Intake/Output Intake/Output: Intake & Output 01/30/25 01/31/25 02/01/25 02/02/25 23:59 23:59 23:59 23:59 Intake Total 1710 3020 550 1680 Output Total 1050 850 725 325 Balance 660 2170 -175 1355 Meds/Results Medications: Active Medications Generic Name Dose Route Start Last Admin Trade Name Freq PRN Reason Stop Dose Admin Acetaminophen 650 mg 01/23/25 14:11 02/01/25 21:11 Acetaminophen 325 Mg Tablet FEED TUBE 650 mg Q4H PRN Administration Fever 1-3 Hydrocodone Bitart/Acetaminophen 1 tab 02/01/25 22:40 02/01/25 22:52 Hydrocodone/Acetaminophen (*Crx) 5-325 Mg Tablet PO 1 tab Q6H PRN Administration Pain Rated 4-6 Albuterol/Ipratropium 3 ml 01/26/25 14:00 02/01/25 20:30 Ipratropium 0.5 Mg/Albuterol Sulfate 2.5 Mg Ampul.Neb 3 Ml INHALATION 3 ml Q6HRT MEENA Administration Amlodipine Besylate 10 mg 01/31/25 09:00 02/01/25 09:34 Amlodipine Besylate 10 Mg Tablet FEED TUBE 10 mg DAILY MEENA Administration Dextrose 12.5 gm 01/20/25 08:23 01/29/25 11:47 Dextrose 50% 25 Gm/50 Ml Syringe IV PUSH 12.5 gm PRN PRN Administration Hypoglycemia Protocol Folic Acid 1 mg 01/20/25 09:00 02/01/25 09:33 Folic Acid 1 Mg/0.2 Ml Inj IV PUSH 1 mg QAM MEENA Administration Glucagon 1 mg 01/20/25 08:23 Glucagon For Inj 1 Mg Vial IM PRN PRN Hypoglycemia Protocol Glucose 15 gm 01/20/25 08:23 Glucose Oral Gel 15 Gm Of Glucse In 37.5 Gm Tube PO PRN PRN Hypoglycemia Protocol Guaifenesin 1,200 mg 02/01/25 10:00 02/01/25 21:11 Guaifenesin 12 Hr 600 Mg Tabcr PO 1,200 mg Q12HR MEENA Administration Hydralazine HCl 20 mg 01/24/25 03:34 01/30/25 02:48 Hydralazine Hcl 20 Mg/Ml Vial IV PUSH 20 mg Q4H PRN Administration Hypertension Hydralazine HCl 50 mg 02/01/25 14:00 02/02/25 05:54 Hydralazine Hcl 25 Mg Tablet PO 50 mg Q8HR MEENA Administration Dextrose 1,000 mls @ 100 mls/hr 01/20/25 08:23 Dextrose 5% 1,000 Ml IVPB PRN PRN Hypoglycemia Protocol Ceftriaxone Sodium 2 gm/ 100 mls @ 200 mls/hr 02/01/25 12:00 02/01/25 12:47 Sodium Chloride IVPB 02/10/25 09:29 Not Given DAILY [facility] Insulin Aspart 3 - 6 units 01/20/25 12:00 02/02/25 06:21 Insulin Aspart (*Bkc) 100 Units/Ml SUB-Q Not Given Q6HR [facility] Protocol Labetalol HCl 20 mg 01/23/25 09:31 02/01/25 05:30 Labetalol Hcl Inj 100 Mg/20 Ml Vial IV PUSH 20 mg Q4H PRN Administration SBP > 160 and HR> 60 -1st choice Linezolid 600 mg 02/01/25 12:00 02/01/25 21:11 Linezolid 600 Mg Tablet PO 02/10/25 21:01 600 mg Q12HR MEENA Administration Metronidazole 500 mg 02/01/25 14:00 02/02/25 05:54 Metronidazole 500 Mg Tablet PO 02/10/25 22:01 500 mg Q8HR MEENA Administration Pantoprazole Sodium 40 mg 01/21/25 09:00 02/01/25 21:11 Pantoprazole Sodium Iv 40 Mg Vial IV PUSH 40 mg Q12HR MEENA Administration Potassium Chloride 20 meq 02/02/25 08:00 Potassium Chloride 20 Meq Er Tablet PO DAILY@0800 MEENA Thiamine HCl 100 mg 01/20/25 09:00 02/01/25 09:32 Thiamine Hcl 200 Mg/2 Ml Vial IV PUSH 100 mg QAM MEENA Administration Radiology Results: ITS Impressions Abdomen X-Ray 01/20/25 05:42 Impression: NG tube in satisfactory position. Small left pleural effusion. Chest/Abdomen/Pelvis CT 01/20/25 05:48 Impression: Moderate to large left pleural effusion with extensive left lower lobe atelectasis. Small right pleural effusion. 9 mm spiculated nodule in the right lower lobe, as detailed above, indeterminate. CT scan in 3 months advised. Consider PET/CT or attempted tissue sampling as indicated. Moderate emphysema. No definite evidence for GI bleed, but evaluation is limited without IV contrast and with oral contrast on board. Consider follow-up CT angiogram of the bowel to further evaluate for GI bleed, as indicated. Moderate abdominopelvic ascites. T12 compression fracture, somewhat age indeterminate, but new since 06/20/2024. Fractures of the right anterior acetabulum at the junction of the right superior pubic ramus and of the right inferior pubic ramus, acute to subacute in nature. Head CT 01/20/25 06:13 Impression: No intracranial hemorrhage, mass, or acute infarct. Atrophy and chronic white matter changes, as above. Wrist X-Ray 01/20/25 06:13 Impression: Probable chronic fracture deformities of the distal radius and ulnar styloid process, as detailed above. No definite acute fracture. Renal Ultrasound 01/21/25 08:42 IMPRESSION: 1. Medical renal disease. 2. Mild bilateral hydronephrosis. No nephrolithiasis. Hip/Pelvis X-Ray 01/24/25 11:12 Impression: 1: Healing right acetabular and inferior pubic rami fractures with callus formation. Modified Barium Swallow 01/29/25 13:33 IMPRESSION: Pharyngeal dysphagia with laryngeal penetration and aspiration with thin liquids. Please correlate with speech pathologist findings and specific feeding recommendations. Chest CT 01/29/25 16:18 IMPRESSION: 1. Grossly stable size and configuration of the 0.9 cm cavitary lesion in the superior segment of the right lower lobe. Differential includes but is not limited to an infectious process, necrotic malignancy or septic pulmonary embolus. Consider a biopsy or PET/CT. Short-term follow-up is recommended. 2. Moderate-sized left-sided pleural effusion. 3. Small right-sided pleural effusion. 4. Moderate-sized consolidation in the left lower lobe with air bronchograms. Recommend follow-up to resolution. 5. There is contrast within the stomach and proximal small bowel. 6. There is nonspecific fluid and fat stranding in the upper abdomen similar to the CT study from 01/20/2025. Chest X-Ray 02/02/25 07:53 IMPRESSION: 1. Likely congestive heart failure with cardiomegaly, mild pulmonary edema and small right and [id number] left pleural effusions. 2. Retrocardiac consolidation in the left lower lung zone which could represent atelectasis or pneumonia. 3. Indeterminate nodular opacity in the. Right lower lobe Labs Labs: Laboratory Results - last 24 hr 02/01/25 02/01/25 02/01/25 06:28 12:50 18:38 WBC RBC Hgb Hct MCV MCH MCHC RDW Plt Count MPV % Immature Plt Fraction Sodium Potassium Chloride Carbon Dioxide Anion Gap BUN Creatinine Estim Creat Clear Calc Estimated GFR Glucose POC Capillary Glucose 82 77 Calcium Phosphorus C-Reactive Protein 6.0 H NT-Pro-B Natriuret Pep > 66527 H Albumin Procalcitonin 29.5 02/01/25 02/02/25 23:14 05:15 WBC 7.4 RBC 4.20 Hgb 12.4 Hct 40.2 MCV 95.7 MCH 29.5 MCHC 30.8 L RDW 22.6 H Plt Count 74 L MPV 10.8 H % Immature Plt Fraction 3.2 Sodium 137 Potassium 3.1 L Chloride 109 H Carbon Dioxide 16 L Anion Gap 12 BUN 45 H Creatinine 1.84 H Estim Creat Clear Calc 19 Estimated GFR 28 L Glucose 93 POC Capillary Glucose 108 H Calcium 8.3 L Phosphorus 3.4 C-Reactive Protein 4.9 H NT-Pro-B Natriuret Pep > 39074 H Albumin 3.4 L Procalcitonin 24.3
[2025-02-02] MEDS: IPRATROPIUM 0.5 MG/ALBUTEROL SULFATE 2.5 MG AMPUL.NEB 3 ML INHALATION ×3 (08:16→19:49)
[2025-02-02] MEDS: POTASSIUM CHLORIDE 20 MEQ ER TABLET PO (09:41)
[2025-02-02] MEDS: guaiFENesin 12 HR 600 MG TABCR 1200 MG PO ×2 (09:41→20:24)
[2025-02-02] MEDS: LINEZOLID 600 MG TABLET PO (09:41)
[2025-02-02] MEDS: PANTOPRAZOLE SODIUM IV 40 MG VIAL IV PUSH (09:41)
[2025-02-02] MEDS: THIAMINE HCL 200 MG/2 ML VIAL 100 MG IV PUSH (09:42)
[2025-02-02] MEDS: cefTRIAXone 2 GM in SODIUM CHLORIDE 0.9% IV 100 ML 200 ML IVPB (09:42)
[2025-02-02] MEDS: FOLIC ACID 1 MG/0.2 ML INJ IV PUSH (11:38)
--- NOTE | 2025-02-02 11:57 | P.PNNP_ITS ---
Progress Note: A&P Assessment and Plan (1) Acute kidney injury: Code(s): N17.9 - Acute kidney failure, unspecified Status: Acute Assessment and Plan: * relatively stable if not better * as noted on admission (creatinine of 3.43mg/dl) * likely due to multiple issues: * prerenal factors (poor nutrition) * anemia/GI bleed * infection/sepsis (+ blood cultures) * respiratory failure * hypoxia * liver disease/cirrhosis * progression of underlying CKD * other(?) * evaluation to date noted: * renal ultrasound with CKD and mild bilateral hydronephrosis - mcqueen cathter placed * urine electrolytes prerenal - suspect due to a combination of poor oral intake AND liver disease/physiology (decreased effective circulating volume) * urine eosinophils negative * CPK low * ~ 2 grams of proteinuria * maintain hemodynamics and H/H as tolerated * noted reasonable urine output * responsive to IV diuretic therapy * follow trend of repeat labs and UOP (2) Stage 4 chronic kidney disease: Code(s): N18.4 - Chronic kidney disease, stage 4 (severe) Status: Chronic Assessment and Plan: * not entirely clear what baseline creatinine really is.... * was noted to be ~ 1.4 - 1.6mg/dl in June 2024 * however, since December 2024, has been running ~ 2.4 - 2.6mg/dl (from record review from [facility]) * most recent labs done on 01/15/25 -- creatinine up to 2.79mg/dl (ER visit at [facility], [place], operated by [facility] prior to leaving [facility]) * possible baseline creatinine around 2ish range?? (3) Acute hypoxic respiratory failure: Code(s): J96.01 - Acute respiratory failure with hypoxia Status: Acute Assessment and Plan: * resolving * multifactorial: * inability to protect airway * aspiration pneumonia * pleural effusions * suspected upper GI bleed * complicated by underlying COPD * imaging noted * IV diuretics PRN for fluid overload (follow CXR results) * failed trial of extubation (on 01/24) * successful extubation on 01/28 * follow respiratory status (4) Acute upper GI bleeding: Code(s): K92.2 - Gastrointestinal hemorrhage, unspecified Status: Acute Assessment and Plan: * stable/resolved * suspected based on admission events/presentation * GI following * s/p EGD (on 01/20): * noted erosive esophagitis but no varices or bleeding lesions noted * PRBC transfusion per protocol * corrected coagulopathy * IV PPI * follow trend on H/H (5) Sepsis: Code(s): A41.9 - Sepsis, unspecified organism Status: Acute Assessment and Plan: * resolved * possibly from pneumonia (aspiration) versus UTI * follow culture data: * blood cultures (from 01/20): Staphylococcus hominis (suspect contamination) * urine culture - no growth to date * completed course of antibiotics * stable hemodynamics noted (6) Anemia: Code(s): D64.9 - Anemia, unspecified Status: Acute Assessment and Plan: * due to several issues: * due to underlying CKD * iron deficiency * #3 - GI following * liver disease * coagulopathy/thrombocytopenia * other * PRBC transfusion as needed * Epogen while hospitalized * follow trend of H/H (7) Coagulopathy: Code(s): D68.9 - Coagulation defect, unspecified Status: Acute Assessment and Plan: * probably secondary to liver cirrhosis * complicated by thrombocytopenia also related to liver disease * s/p cryoprecipitate, platelets, and FFP transfusion * follow platelet count and INR (8) Alcoholic cirrhosis of liver with ascites: Code(s): K70.31 - Alcoholic cirrhosis of liver with ascites Status: Acute Assessment and Plan: * as evidence by admission CT/imaging findings * presumably partly related to alcohol intake * GI following (9) Transaminitis: Code(s): R74.01 - Elevation of levels of liver transaminase levels Status: Acute Assessment and Plan: * noted by admission labs * suspect secondary to/consistent with with alcoholic liver disease * appear to be stabilizing * Hepatitis C antibody screen is positive -- RNA quantitative is [id number] * will need follow-up as an outpatient basis for hepatitis C infection (10) Acetabular fracture: Qualifiers: Encounter type: initial encounter Fracture alignment: nondisplaced F racture type: closed Laterality: right Sublocation of acetabulum: unspecified portion of acetabulum Qualified Code(s): S32.401A - Unspecified fracture of right acetabulum, initial encounter for closed fracture Code(s): S32.409A - Unspecified fracture of unspecified acetabulum, initial encounter for closed fracture Status: Acute Assessment and Plan: * as noted by admission CT imaging: * fractures of the right anterior acetabulum at the junction of the right superior pubic ramus and of the right inferior pubic ramus, acute to subacute in nature * Orthopedic Surgery recommendations * repeat imaging X-rays noted: healing right acetabular and inferior pubic rami fractures with callus formation (11) Distal radial fracture: Qualifiers: Encounter type: subsequent encounter Fracture type: closed Fracture morphology: unspecified fracture morphology Laterality: left Fracture healing: with nonunion Qualified Code(s): S52.502K - Unspecified fracture of the lower end of left radius, subsequent encounter for closed fracture with nonunion Code(s): S52.509A - Unspecified fracture of the lower end of unspecified radius, initial encounter for closed fracture Status: Acute Assessment and Plan: * apparently chronic in nature by X-rays * Orthopedic Surgery recommendations reviewed (12) Alcohol abuse: Code(s): F10.10 - Alcohol abuse, uncomplicated Status: Acute Assessment and Plan: * known history * on thiamine and folate As per nursing, family and patient moving towards comfort care/hospice given her multitude of medical issues/problems as already noted above which seems a reasonable plan of care. Will continue to follow. L Subjective Date/time seen: 02/02/25 11:57 Interval history: Follow-up for acute kidney injury/acute renal failure on chronic kidney disease. Chart reviewed since last seen -- no apparent distress noted at the time of my visit visit; resting comfortably when seen; according to nursing, she is not eating or drinking much so was getting IVFs but given recent CXR results with pleural effusions, this was discontinued. Furthermore, family and patient seem to be moving toward comfort care/hospice. Exam 2 Narrative: General: frail and cachectic female in NAD Heart: normal S1 and S2; no rub Lungs: coarse breath sounds; decreased throughout Abdomen: soft, nontender, nondistended, positive bowel sounds Extremities: no cyanosis or clubbing; trace edema Skin: no nodules Objective Data Vital Signs Vital Signs: Vital Signs Temp Pulse Resp BP Pulse Ox O2 Del Method 02/02/25 08:23 84 20 02/02/25 08:00 Room Air 02/02/25 05:35 97.7 F 105 H 18 180/108 H 94 02/01/25 22:01 90 Room Air 02/01/25 20:39 87 16 02/01/25 20:30 80 16 02/01/25 20:25 97.6 F 97 22 H 152/99 H 93 Intake/Output Intake/Output: Intake & Output 01/30/25 01/31/25 02/01/25 02/02/25 23:59 23:59 23:59 23:59 Intake Total 1710 3020 550 2000 Output Total 1050 850 725 775 Balance 660 2170 -444 1225 Meds/Results Medications: Active Medications Generic Name Dose Route Start Last Admin Trade Name Freq PRN Reason Stop Dose Admin Acetaminophen 650 mg 01/23/25 14:11 02/01/25 21:11 Acetaminophen 325 Mg Tablet FEED TUBE 650 mg Q4H PRN Administration Fever 1-3 Hydrocodone Bitart/Acetaminophen 1 tab 02/01/25 22:40 02/02/25 18:45 Hydrocodone/Acetaminophen (*Crx) 5-325 Mg Tablet PO 1 tab Q6H PRN Administration Pain Rated 4-6 Albuterol/Ipratropium 3 ml 01/26/25 14:00 02/02/25 13:39 Ipratropium 0.5 Mg/Albuterol Sulfate 2.5 Mg Ampul.Neb 3 Ml INHALATION 3 ml Q6HRT MEENA Administration Amlodipine Besylate 10 mg 01/31/25 09:00 02/02/25 09:41 Amlodipine Besylate 10 Mg Tablet FEED TUBE 10 mg DAILY MEENA Administration Cefuroxime Axetil 250 mg 02/03/25 09:00 Cefuroxime Axetil 250 Mg Tablet PO 02/10/25 21:01 Q12HR MEENA Dextrose 12.5 gm 01/20/25 08:23 01/29/25 11:47 Dextrose 50% 25 Gm/50 Ml Syringe IV PUSH 12.5 gm PRN PRN Administration Hypoglycemia Protocol Doxycycline Hyclate 100 mg 02/02/25 21:00 Doxycycline Hyclate 100 Mg Tablet PO 02/10/25 21:01 Q12HR MEENA Folic Acid 1 mg 01/20/25 09:00 02/02/25 11:38 Folic Acid 1 Mg/0.2 Ml Inj IV PUSH 1 mg QAM MEENA Administration Glucagon 1 mg 01/20/25 08:23 Glucagon For Inj 1 Mg Vial IM PRN PRN Hypoglycemia Protocol Glucose 15 gm 01/20/25 08:23 Glucose Oral Gel 15 Gm Of Glucse In 37.5 Gm Tube PO PRN PRN Hypoglycemia Protocol Guaifenesin 1,200 mg 02/01/25 10:00 02/02/25 09:41 Guaifenesin 12 Hr 600 Mg Tabcr PO 1,200 mg Q12HR MEENA Administration Hydralazine HCl 20 mg 01/24/25 03:34 01/30/25 02:48 Hydralazine Hcl 20 Mg/Ml Vial IV PUSH 20 mg Q4H PRN Administration Hypertension Hydralazine HCl 50 mg 02/01/25 14:00 02/02/25 14:35 Hydralazine Hcl 25 Mg Tablet PO 50 mg Q8HR MEENA Administration Dextrose 1,000 mls @ 100 mls/hr 01/20/25 08:23 Dextrose 5% 1,000 Ml IVPB PRN PRN Hypoglycemia Protocol Insulin Aspart 3 - 6 units 01/20/25 12:00 02/02/25 16:29 Insulin Aspart (*Bkc) 100 Units/Ml SUB-Q Not Given Q6HR MEENA Protocol Labetalol HCl 20 mg 01/23/25 09:31 02/01/25 05:30 Labetalol Hcl Inj 100 Mg/20 Ml Vial IV PUSH 20 mg Q4H PRN Administration SBP > 160 and HR> 60 -1st choice Metronidazole 500 mg 02/01/25 14:00 02/02/25 14:35 Metronidazole 500 Mg Tablet PO 02/10/25 22:01 500 mg Q8HR MEENA Administration Potassium Chloride 20 meq 02/02/25 08:00 02/02/25 09:41 Potassium Chloride 20 Meq Er Tablet PO 20 meq DAILY@0800 MEENA Administration Thiamine HCl 100 mg 01/20/25 09:00 02/02/25 09:42 Thiamine Hcl 200 Mg/2 Ml Vial IV PUSH 100 mg QAM MEENA Administration Radiology Results: ITS Impressions Abdomen X-Ray 01/20/25 05:42 Impression: NG tube in satisfactory position. Small left pleural effusion. Chest/Abdomen/Pelvis CT 01/20/25 05:48 Impression: Moderate to large left pleural effusion with extensive left lower lobe atelectasis. Small right pleural effusion. 9 mm spiculated nodule in the right lower lobe, as detailed above, indeterminate. CT scan in 3 months advised. Consider PET/CT or attempted tissue sampling as indicated. Moderate emphysema. No definite evidence for GI bleed, but evaluation is limited without IV contrast and with oral contrast on board. Consider follow-up CT angiogram of the bowel to further evaluate for GI bleed, as indicated. Moderate abdominopelvic ascites. T12 compression fracture, somewhat age indeterminate, but new since 06/20/2024. Fractures of the right anterior acetabulum at the junction of the right superior pubic ramus and of the right inferior pubic ramus, acute to subacute in nature. Head CT 01/20/25 06:13 Impression: No intracranial hemorrhage, mass, or acute infarct. Atrophy and chronic white matter changes, as above. Wrist X-Ray 01/20/25 06:13 Impression: Probable chronic fracture deformities of the distal radius and ulnar styloid process, as detailed above. No definite acute fracture. Renal Ultrasound 01/21/25 08:42 IMPRESSION: 1. Medical renal disease. 2. Mild bilateral hydronephrosis. No nephrolithiasis. Hip/Pelvis X-Ray 01/24/25 11:12 Impression: 1: Healing right acetabular and inferior pubic rami fractures with callus formation. Modified Barium Swallow 01/29/25 13:33 IMPRESSION: Pharyngeal dysphagia with laryngeal penetration and aspiration with thin liquids. Please correlate with speech pathologist findings and specific feeding recommendations. Chest CT 01/29/25 16:18 IMPRESSION: 1. Grossly stable size and configuration of the 0.9 cm cavitary lesion in the superior segment of the right lower lobe. Differential includes but is not limited to an infectious process, necrotic malignancy or septic pulmonary embolus. Consider a biopsy or PET/CT. Short-term follow-up is recommended. 2. Moderate-sized left-sided pleural effusion. 3. Small right-sided pleural effusion. 4. Moderate-sized consolidation in the left lower lobe with air bronchograms. Recommend follow-up to resolution. 5. There is contrast within the stomach and proximal small bowel. 6. There is nonspecific fluid and fat stranding in the upper abdomen similar to the CT study from 01/20/2025. Chest X-Ray 02/02/25 07:53 IMPRESSION: 1. Likely congestive heart failure with cardiomegaly, mild pulmonary edema and small right and [id number] left pleural effusions. 2. Retrocardiac consolidation in the left lower lung zone which could represent atelectasis or pneumonia. 3. Indeterminate nodular opacity in the. Right lower lobe Labs Labs: Laboratory Tests 02/02/25 05:15 02/02/25 05:15 Calcium 8.3 L Phosphorus 3.4 C-Reactive Protein 4.9 H NT-Pro-B Natriuret Pep > 07917 H Albumin 3.4 L Procalcitonin 24.3
--- NOTE | 2025-02-02 12:45 | P.PNIM_ITS ---
Progress Note: A&P Assessment and Plan (1) Acute hypoxic respiratory failure: Code(s): J96.01 - Acute respiratory failure with hypoxia Status: Acute Assessment and Plan: Acute respiratory failure secondary to aspiration pneumonia pleural effusion upper GI bleed with underlying COPD S/p intubation, was extubated on 01/24 and reintubated again for resp failure finally extubated on 01/28 now on room air continue Linezolid, Flagyl and Rocephin to stop on 02/10/25 ID and Pulmonology folllowing (2) Acute upper GI bleeding: Code(s): K92.2 - Gastrointestinal hemorrhage, unspecified Status: Acute Assessment and Plan: Acute upper GI bleed 01/20 EGD showed reflux/erosive/ulcerative esophagitis and hiatal hernia, no variceal bleed Status post transfusion of multiple units of PRBC Coagulopathy cryo and FFP Hemoglobin appears to be now stable. continue monitoring hemoglobin and transfuse additional PRBC if needed continue IV PPI. Octreotide was discontinued GI following hb stable 12.4 (3) Transaminitis: Code(s): R74.01 - Elevation of levels of liver transaminase levels Status: Acute Assessment and Plan: AST and ALT mildly elevated likely consistent with alcoholic liver disease. Hepatitis C antibody screen is positive. RNA quantitative is [id number] -LFTs have normalized, continue to monitor Gi following, treatment per GI (4) Alcoholic cirrhosis of liver with ascites: Code(s): K70.31 - Alcoholic cirrhosis of liver with ascites Status: Acute Assessment and Plan: Patient has cirrhosis from alcohol liver disease with CT scan showing ascites (5) Acute kidney injury superimposed on stage 4 chronic kidney disease: Code(s): N17.9 - Acute kidney failure, unspecified; N18.4 - Chronic kidney disease, stage 4 (severe) Status: Acute Assessment and Plan: Baseline creatinine in mid 2 Patient was given IV fluids but now off due to concern of volume overload and patient has also received significant amount of blood products. Monitor urine output electrolytes and creatinine CT scans not show any obstruction or stone Renal ultrasound showed mild bilateral hydronephrosis without any stones Appreciate nephrology following the patient. Patient responded well to Lasix for volume overload Chest x-ray shows bilateral infiltrates, possible edema, pneumonia or atelectasis, will give additional dose of Lasix today phosphorus has normalized -creatinine is improving Creatinine now at baseline, Nephrology following (6) Coagulopathy: Code(s): D68.9 - Coagulation defect, unspecified Status: Acute Assessment and Plan: Coagulopathy secondary to cirrhosis and sepsis Status post cryo and platelets, and FFP (7) Sepsis: Code(s): A41.9 - Sepsis, unspecified organism Status: Acute Assessment and Plan: 01/30: Patient started on ceftriaxone, Flagyl and vancomycin due to sepsis Reviewed CT chest which shows cavitary lesion in right lower lobe. ID consulted Sepsis likely secondary to pneumonia which could be aspiration Blood cultures grew Staph hominis which is likely contaminant. Repeat blood culture today Currently on ceftriaxone, Flagyl and Linezolid (8) Anemia: Code(s): D64.9 - Anemia, unspecified Status: Acute Assessment and Plan: Likely multifactorial anemia from iron deficiency and anemia of chronic kidney disease along with acute blood loss Patient received a dose of iron And she has received for units of PRBC. Hemoglobin appears to have stabilized Monitor and transfuse additional if needed Management of GI bleeding as above Epogen per Nephrology Hb stabel 12.4 (9) Thrombocytopenia: Code(s): D69.6 - Thrombocytopenia, unspecified Status: Acute Assessment and Plan: Thrombocytopenia likely combination of sepsis and cirrhosis. 01/20 Platelet transfusion -plts 74 (10) Alcohol abuse: Code(s): F10.10 - Alcohol abuse, uncomplicated Status: Acute Assessment and Plan: History of alcohol abuse. Off all sedation Continue thiamine and folic acid (11) Severe protein-calorie malnutrition: Code(s): E43 - Unspecified severe protein-calorie malnutrition Status: Acute Assessment and Plan: Appears Malnourished and cachectic. -off tube feeds, -patient had a modified barium swallow test done on 01/29, speech therapy recommended: pureed diet level 4 and mildly thick liquids level 2. ST to treat and reassess pt's ability to manage solids if dentures are found (12) Acetabular fracture: Qualifiers: Encounter type: initial encounter Fracture alignment: nondisplaced Fracture type: closed Laterality: right Sublocation of acetabulum: unspecified portion of acetabulum Qualified Code(s): S32.401A - Unspecified fracture of right acetabulum, initial encounter for closed fracture Code(s): S32.409A - Unspecified fracture of unspecified acetabulum, initial encounter for closed fracture Status: Acute Assessment and Plan: Orthopedics evaluate the patient . No further recommendations at this time (13) Distal radial fracture: Qualifiers: Encounter type: subsequent encounter Fracture type: closed Fracture morphology: unspecified fracture morphology Laterality: left Fracture healing: with nonunion Qualified Code(s): S52.502K - Unspecified fracture of the lower end of left radius, subsequent encounter for closed fracture with nonunion Code(s): S52.509A - Unspecified fracture of the lower end of unspecified radius, initial encounter for closed fracture Status: Acute Assessment and Plan: seen by orthopedics. Splint removed as per recommendations. Plan Patient awaiting hospice discharge Subjective Date/time seen: 02/02/25 12:45 Interval history: Comfortable at bedside and awaiting hospice eval and discharge Review of Systems Review of Systems: All systems reviewed & are unremarkable except as noted in HPI and below ROS unobtainable: Yes unobtainable due to endotracheal tube, unobtainable due to medical condition and unobtainable due to mental status Exam Narrative: APPEARANCE: Cachectic, no acute distress EYES: EOMI HEENT: Normocephalic, atraumatic, OMM RESPIRATORY: No respiratory distress Clear to auscultation bilaterally with no rhonchi wheezing or rales. CARDIOVASCULAR: RRR, S1 and S2 without murmurs rubs or gallops. ABDOMINAL: Soft, nontender, nondistended, no rebound or guarding MSK: Moves her extremities spontaneously NEURO: Awake and alert. Following commands, speech normal, no focal deficits SKIN:: Warm, dry. No rashes lesions or abrasions PSYCHIATRIC: Normal affect/mood Objective Data Vital Signs Vital Signs: Vital Signs - 24 hr 02/01/25 13:20 02/01/25 13:20 02/01/25 13:29 Temperature Pulse Rate 87 82 Respiratory Rate 16 16 Blood Pressure Pulse Oximetry 90 Oxygen Delivery Room Air 02/01/25 14:46 02/01/25 20:25 02/01/25 20:30 Temperature 97.6 F Pulse Rate 97 80 Respiratory Rate 22 H 16 Blood Pressure 152/99 H Pulse Oximetry 93 Oxygen Delivery Room Air 02/01/25 20:39 02/01/25 22:01 02/02/25 05:35 Temperature 97.7 F Pulse Rate 87 105 H Respiratory Rate 16 18 Blood Pressure 180/108 H Pulse Oximetry 90 94 Oxygen Delivery Room Air 02/02/25 08:23 Temperature Pulse Rate 84 Respiratory Rate 20 Blood Pressure Pulse Oximetry Oxygen Delivery Intake/Output Intake/Output: Intake & Output 01/30/25 01/31/25 02/01/25 02/02/25 23:59 23:59 23:59 23:59 Intake Total 1710 3020 550 1680 Output Total 1050 850 725 325 Balance 660 2170 -175 1355 Meds/Results Medications: Active Medications Generic Name Dose Route Start Last Admin Trade Name Freq PRN Reason Stop Dose Admin Acetaminophen 650 mg 01/23/25 14:11 02/01/25 21:11 Acetaminophen 325 Mg Tablet FEED TUBE 650 mg Q4H PRN Administration Fever 1-3 Hydrocodone Bitart/Acetaminophen 1 tab 02/01/25 22:40 02/01/25 22:52 Hydrocodone/Acetaminophen (*Crx) 5-325 Mg Tablet PO 1 tab Q6H PRN Administration Pain Rated 4-6 Albuterol/Ipratropium 3 ml 01/26/25 14:00 02/02/25 08:16 Ipratropium 0.5 Mg/Albuterol Sulfate 2.5 Mg Ampul.Neb 3 Ml INHALATION 3 ml Q6HRT MEENA Administration Amlodipine Besylate 10 mg 01/31/25 09:00 02/02/25 09:41 Amlodipine Besylate 10 Mg Tablet FEED TUBE 10 mg DAILY MEENA Administration Dextrose 12.5 gm 01/20/25 08:23 01/29/25 11:47 Dextrose 50% 25 Gm/50 Ml Syringe IV PUSH 12.5 gm PRN PRN Administration Hypoglycemia Protocol Folic Acid 1 mg 01/20/25 09:00 02/02/25 11:38 Folic Acid 1 Mg/0.2 Ml Inj IV PUSH 1 mg QAM MEENA Administration Glucagon 1 mg 01/20/25 08:23 Glucagon For Inj 1 Mg Vial IM PRN PRN Hypoglycemia Protocol Glucose 15 gm 01/20/25 08:23 Glucose Oral Gel 15 Gm Of Glucse In 37.5 Gm Tube PO PRN PRN Hypoglycemia Protocol Guaifenesin 1,200 mg 02/01/25 10:00 02/02/25 09:41 Guaifenesin 12 Hr 600 Mg Tabcr PO 1,200 mg Q12HR MEENA Administration Hydralazine HCl 20 mg 01/24/25 03:34 01/30/25 02:48 Hydralazine Hcl 20 Mg/Ml Vial IV PUSH 20 mg Q4H PRN Administration Hypertension Hydralazine HCl 50 mg 02/01/25 14:00 02/02/25 05:54 Hydralazine Hcl 25 Mg Tablet PO 50 mg Q8HR MEENA Administration Dextrose 1,000 mls @ 100 mls/hr 01/20/25 08:23 Dextrose 5% 1,000 Ml IVPB PRN PRN Hypoglycemia Protocol Ceftriaxone Sodium 2 gm/ 100 mls @ 200 mls/hr 02/01/25 12:00 02/02/25 09:42 Sodium Chloride IVPB 02/10/25 09:29 200 mls/hr DAILY MEENA Administration Insulin Aspart 3 - 6 units 01/20/25 12:00 02/02/25 11:37 Insulin Aspart (*Bkc) 100 Units/Ml SUB-Q Not Given Q6HR MEENA Protocol Labetalol HCl 20 mg 01/23/25 09:31 02/01/25 05:30 Labetalol Hcl Inj 100 Mg/20 Ml Vial IV PUSH 20 mg Q4H PRN Administration SBP > 160 and HR> 60 -1st choice Linezolid 600 mg 02/01/25 12:00 02/02/25 09:41 Linezolid 600 Mg Tablet PO 02/10/25 21:01 600 mg Q12HR MEENA Administration Metronidazole 500 mg 02/01/25 14:00 02/02/25 05:54 Metronidazole 500 Mg Tablet PO 02/10/25 22:01 500 mg Q8HR MEENA Administration Pantoprazole Sodium 40 mg 01/21/25 09:00 02/02/25 09:41 Pantoprazole Sodium Iv 40 Mg Vial IV PUSH 40 mg Q12HR MEENA Administration Potassium Chloride 20 meq 02/02/25 08:00 02/02/25 09:41 Potassium Chloride 20 Meq Er Tablet PO 20 meq DAILY@0800 MEENA Administration Thiamine HCl 100 mg 01/20/25 09:00 02/02/25 09:42 Thiamine Hcl 200 Mg/2 Ml Vial IV PUSH 100 mg QAM MEENA Administration Radiology Results: ITS Impressions Abdomen X-Ray 01/20/25 05:42 Impression: NG tube in satisfactory position. Small left pleural effusion. Chest/Abdomen/Pelvis CT 01/20/25 05:48 Impression: Moderate to large left pleural effusion with extensive left lower lobe atelectasis. Small right pleural effusion. 9 mm spiculated nodule in the right lower lobe, as detailed above, indetermin ate. CT scan in 3 months advised. Consider PET/CT or attempted tissue sampling as indicated. Moderate emphysema. No definite evidence for GI bleed, but evaluation is limited without IV contrast and with oral contrast on board. Consider follow-up CT angiogram of the bowel to further evaluate for GI bleed, as indicated. Moderate abdominopelvic ascites. T12 compression fracture, somewhat age indeterminate, but new since 06/20/2024. Fractures of the right anterior acetabulum at the junction of the right superior pubic ramus and of the right inferior pubic ramus, acute to subacute in nature. Head CT 01/20/25 06:13 Impression: No intracranial hemorrhage, mass, or acute infarct. Atrophy and chronic white matter changes, as above. Wrist X-Ray 01/20/25 06:13 Impression: Probable chronic fracture deformities of the distal radius and ulnar styloid process, as detailed above. No definite acute fracture. Renal Ultrasound 01/21/25 08:42 IMPRESSION: 1. Medical renal disease. 2. Mild bilateral hydronephrosis. No nephrolithiasis. Hip/Pelvis X-Ray 01/24/25 11:12 Impression: 1: Healing right acetabular and inferior pubic rami fractures with callus formation. Modified Barium Swallow 01/29/25 13:33 IMPRESSION: Pharyngeal dysphagia with laryngeal penetration and aspiration with thin liquids. Please correlate with speech pathologist findings and specific feeding recommendations. Chest CT 01/29/25 16:18 IMPRESSION: 1. Grossly stable size and configuration of the 0.9 cm cavitary lesion in the superior segment of the right lower lobe. Differential includes but is not limited to an infectious process, necrotic malignancy or septic pulmonary embolus. Consider a biopsy or PET/CT. Short-term follow-up is recommended. 2. Moderate-sized left-sided pleural effusion. 3. Small right-sided pleural effusion. 4. Moderate-sized consolidation in the left lower lobe with air bronchograms. Recommend follow-up to resolution. 5. There is contrast within the stomach and proximal small bowel. 6. There is nonspecific fluid and fat stranding in the upper abdomen similar to the CT study from 01/20/2025. Chest X-Ray 02/02/25 07:53 IMPRESSION: 1. Likely congestive heart failure with cardiomegaly, mild pulmonary edema and small right and [id number] left pleural effusions. 2. Retrocardiac consolidation in the left lower lung zone which could represent atelectasis or pneumonia. 3. Indeterminate nodular opacity in the. Right lower lobe Labs Labs: Laboratory Results - last 24 hr 02/01/25 02/01/25 02/01/25 12:50 18:38 23:14 WBC RBC Hgb Hct MCV MCH MCHC RDW Plt Count MPV % Immature Plt Fraction Sodium Potassium Chloride Carbon Dioxide Anion Gap BUN Creatinine Estim Creat Clear Calc Estimated GFR Glucose POC Capillary Glucose 82 77 108 H Calcium Phosphorus C-Reactive Protein NT-Pro-B Natriuret Pep Albumin Procalcitonin 02/02/25 02/02/25 05:15 11:30 WBC 7.4 RBC 4.20 Hgb 12.4 Hct 40.2 MCV 95.7 MCH 29.5 MCHC 30.8 L RDW 22.6 H Plt Count 74 L MPV 10.8 H % Immature Plt Fraction 3.2 Sodium 137 Potassium 3.1 L Chloride 109 H Carbon Dioxide 16 L Anion Gap 12 BUN 45 H Creatinine 1.84 H Estim Creat Clear Calc 19 Estimated GFR 28 L Glucose 93 POC Capillary Glucose 88 Calcium 8.3 L Phosphorus 3.4 C-Reactive Protein 4.9 H NT-Pro-B Natriuret Pep > 14466 H Albumin 3.4 L Procalcitonin 24.3 Quality VTE Prophylaxis VTE prophylaxis: mechanical ordered
--- NOTE | 2025-02-02 16:29 | WPDIDCN ---
Assessment and Plan Assessment and plan (1) Cavitary lesion of lung: Code(s): J98.4 - Other disorders of lung Status: Acute (2) Aspiration pneumonia: Code(s): J69.0 - Pneumonitis due to inhalation of food and vomit Status: Acute (3) COPD (chronic obstructive pulmonary disease): Code(s): J44.9 - Chronic obstructive pulmonary disease, unspecified Status: Acute (4) Alcoholic cirrhosis of liver with ascites: Code(s): K70.31 - Alcoholic cirrhosis of liver with ascites Status: Acute (5) Erosive esophagitis: Code(s): K22.10 - Ulcer of esophagus without bleeding Status: Acute (6) UGI bleed: Code(s): K92.2 - Gastrointestinal hemorrhage, unspecified Status: Acute Plan Right lower lobe spiculated cavitary lesion suggestive of aspiration event with necrotizing pneumonia. MRSA screen positive but without other respiratory culture information. Clinically stabilized on antibiotics to date. Acute upper GI bleed secondary to erosive and ulcerative esophagitis With underlying coagulopathy. Alcoholic liver disease with cirrhosis and ascites. Plan: -- patient has been enrolled in hospice and will be discharged from the hospital. Reasonable to consider continued defined course of antibiotics directed toward treatment of post aspiration necrotizing pneumonia. -- would consider discharge on the following antibiotics: oral cefuroxime 250 mg q.12 hours, metronidazole 500 mg q.8 hours, and doxycycline 100 mg q.12 hours to complete a total of 21 days both intravenous and oral antibiotics. -- thank you for the consult. Patient was seen via video telehealth consultation with the assistance of staff. Chart, data, and patient independently reviewed. Patient was located at [facility] while I was located in my [place] office. Received verbal consent from patient. [facility] Data of Consult Date/Time: 02/02/25 16:29 Requesting Physician: Naila Torres DO Primary Care Provider: PHYSICIAN NOT ON STAFF Consult Narrative Reason for consult: discharge antibiotic recommendations Narrative: Jaci Lee is a 59 year old female, originally admitted 01/20/2025, with current ID consult request for discharge antibiotic recommendations. Past medical history significant for alcoholism with cirrhosis, stage 4 chronic kidney disease, chronic encephalopathy, heavy tobacco use, and severe protein calorie malnutrition. Initial presentation for possible GI bleed With complaint of hematemesis. Extensive hematemesis necessitated intubation for airway protection. Since hospitalization she has been extubated and reintubated with final extubation occurring 01/28/2025. By EGD found to have erosive and ulcerative esophagitis without variceal bleeding. Bleeding also complicated by underlying liver disease coagulopathy. Also diagnosed with right lower lobe pneumonia associated with a 9 mm spiculated nodule with a cavity in the superior segment of the right upper lobe and possibly associated with aspiration event. To date she has received 7 days of Zosyn followed by additional antibiotics now including ceftriaxone, metronidazole, and linezolid, the latter for positive MRSA screen. No other respiratory cultures available. Pulmonary is recommending at least a 21 day course of antibiotics. She has since been enrolled in hospice with plans for discharge. Medical service is requesting Infectious Disease input regarding the possibility of discharge to hospice on oral antibiotics. Review of Systems Review of Systems: All systems reviewed & are unremarkable except as noted in HPI and below PMFSH Past Medical History Medical History Acute on chronic anemia Erosive esophagitis Elevated liver enzymes CKD (chronic kidney disease) stage 4, GFR 15-29 ml/min Severe protein-calorie malnutrition Alcoholic cirrhosis of liver with ascites Alcohol abuse Surgical History Surgical History (Updated 01/20/25 @ 06:43 by Naila Torres DO) Status post open reduction with internal fixation of fracture Right femur Family History Family History (Updated 01/20/25 @ 06:43 by Naila Torres DO) Other Unknown family medical history Social History Social History (Updated 01/20/25 @ 06:44 by Naila Torres DO) Social History: Patient has a history of chronic alcohol abuse. Her urine drug screen was also positive for amphetamines. Patient has dark tobacco staining to her fingers. Smoking packs per day: 1 Smoking cigarettes per day: 20.0 Years smoked: 40 Smoking pack-years: 40.00 Smoking status: Current every day smoker Tobacco type: cigarettes Alcohol intake: current Substance use: unknown Spiritual care concerns: No Meds Home Medications and Allergies Home Medications ?Medication ?Instructions ?Recorded ?Confirmed ?Type clonazepam 1 mg tablet 1 mg PO Q8H PRN anxiety 01/20/25 01/20/25 History diazepam 10 mg tablet 10 mg PO DAILY 01/20/25 01/20/25 History Allergies Allergy/AdvReac Type Severity Reaction Status Date / Time codeine Allergy Mild Verified 11/23/09 20:50 gabapentin Allergy Mild Verified 11/23/09 20:50 Penicillins Allergy Mild Verified 01/20/25 07:51 Vital Signs Vital Signs - 24 hr 02/01/25 20:25 02/01/25 20:30 02/01/25 20:39 Temperature 97.6 F Pulse Rate 97 80 87 Respiratory Rate 22 H 16 16 Blood Pressure 152/99 H Pulse Oximetry 93 Oxygen Delivery 02/01/25 22:01 02/02/25 05:35 02/02/25 08:00 Temperature 97.7 F Pulse Rate 105 H Respiratory Rate 18 Blood Pressure 180/108 H Pulse Oximetry 90 94 Oxygen Delivery Room Air Room Air 02/02/25 08:23 02/02/25 13:41 02/02/25 14:00 Temperature 98.3 F Pulse Rate 84 82 103 H Respiratory Rate 20 20 22 H Blood Pressure 131/76 Pulse Oximetry 94 Oxygen Delivery Exam Narrative: Patient is slight and somewhat cachectic in appearance. She is able to vocalize but with some difficulty. Mostly, she nods her head. Normocephalic with some wasting. No respiratory difficulty. She however notes shortness of breath with some cough. No observable significant abdominal distension. No rash. Results Labs 02/02/25 05:15 02/02/25 05:15 Labs: Short CBC 02/02/25 Range/Units 05:15 WBC 7.4 (4.5-10.0) K/mm3 Hgb 12.4 (12.0-15.0) g/dL Hct 40.2 (37.0-47.0) % Plt Count 74 L (150-375) k/mm3 BMP 02/02/25 05:15 Sodium 137 Potassium 3.1 L Chloride 109 H Carbon Dioxide 16 L BUN 45 H Creatinine 1.84 H Glucose 93 Calcium 8.3 L Liver Function 02/02/25 Range/Units 05:15 Albumin 3.4 L (3.5-5.1) g/dL
[2025-02-02] MEDS: HYDROcodone/acetaminophen (*CRX) 5-325 MG TABLET 1 TAB PO (18:45)
[2025-02-02] MEDS: DOXYCYCLINE HYCLATE 100 MG TABLET PO (20:25)
[2025-02-03 01:55] VITALS: PULSE 80; RESP 18
[2025-02-03] MEDS: IPRATROPIUM 0.5 MG/ALBUTEROL SULFATE 2.5 MG AMPUL.NEB 3 ML INHALATION ×3 (01:55→09:34)
[2025-02-03 02:00] VITALS: PULSE 80; RESP 18
[2025-02-03] MEDS: HYDROcodone/acetaminophen (*CRX) 5-325 MG TABLET 1 TAB PO (02:01)
[2025-02-03 05:11] VITALS: BP 162/104; PULSE 99; RESP 16; TEMP 36.4; O2SAT 97
[2025-02-03 05:32] LABS: Hematocrit 37.6 % (37.0-47.0); Hemoglobin 11.7 g/dL (12.0-15.0); Immature Granulocyte Percent A 1.5 % (0-0.5); Immature Platelet Fraction Pct 2.8 % (0.9-11.2); Lymphocytes Absolute Auto 1.12 K/mm3 (0.9-3.2); Mean Corpuscular HGB Conc 31.1 g/dl (32-36); Mean Corpuscular Hemoglobin 30.2 pg (26-34); Mean Corpuscular Volume 97.2 fl (80-100); Nucleated Red Blood Cells Absolute Auto 0.000 K/mm3 (0.0-0.012); Nucleated Red Blood Cells Perc 0.0 % (0.0-0.2); Platelet Count Result 78 k/mm3 (150-375); Red Blood Count 3.87 M/mm3 (4.2-5.4); White Blood Count 6.8 K/mm3 (4.5-10.0)
[2025-02-03 05:42] LABS: Alanine Aminotransferase 17 U/L (6-35); Albumin Level 3.2 g/dL (3.5-5.1); Alkaline Phosphatase 104 U/L (38-126); Anion Gap 16 mmol/L (4-12); Aspartate Amino Transferase 26 U/L (14-36); Bilirubin,Total 1.2 mg/dL (0.2-1.3); Blood Urea Nitrogen 39 mg/dL (7-17); Calcium 8.1 mg/dL (8.4-10.2); Carbon Dioxide 11 mmol/L (22-30); Chloride 109 mmol/L (98-107); Estimated CRCL calculation 20 ml/min; Estimated Glomerular Filt Rate 29; Glucose 77 mg/dL (65-110); Magnesium 1.8 mg/dL (1.6-2.3); Potassium 3.1 mmol/L (3.4-5.0); Sodium 136 mmol/L (137-145); Total Protein 6.3 g/dL (6.3-8.2); Triglycerides 191 mg/dL (<150)
[2025-02-03 06:00] LABS: Anisocytosis 1+; Schistocytes None Seen
--- NOTE | 2025-02-03 07:49 | P.PNPL_ITS ---
Progress Note: A&P Assessment and Plan (1) COPD (chronic obstructive pulmonary disease): Code(s): J44.9 - Chronic obstructive pulmonary disease, unspecified Status: Acute Assessment and Plan: Patient carries a history of tobacco use, she tells me she was diagnosed with COPD approximately 10 years ago with PFTs. I do not have the PFT results. CT scan of the chest on 01/20/2025 demonstrates moderate apical predominant centrilobular emphysema and mild apical predominant paraseptal emphysema. She cannot tell me if she has been on inhalers previously. home medicine list does not list inhalers. on admission white blood cell count 11.2, eosinophils 0%. 01/29/2025: Patient is awake but encephalopathic, she is in no respiratory distress. Patient is on room air with saturations 95%. She is afebrile with a last fever of 01/27 at 6:00 a.m.. Her white blood cell count is 6.1, creatinine is 2.06. Yesterday she diuresed 120 mL and cumulative she is -6 mL since admission. Her weight today is 39.7 kg. Chest x-ray yesterday demonstrated ET tube with hyperinflation and retrocardiac infiltrate. the patient empirically was placed on noninvasive ventilation post extubation and I agree with that for tonight as long as she tolerates this. I placed her on the noninvasive ventilator with the AVAPS mode and adjusted the settings to comfort resulting in a rate of 14, tidal volume 450, EPAP 5, minimum inspiratory pressure 6, maximal inspiratory pressure 20, inspiratory time 1.0, rise of 5 which is the slowest and 28% FiO2. Later in the day patient had an echocardiogram with LVEF 655-60%, grade 1 diastolic dysfunction, mild left atrial enlargement, mild mitral regurg, mild aortic stenosis with a valve area of 1.8 cm, mean gradient 9, normal RV size and function, normal right atrial size, moderate tricuspid regurg with PASP of 53. Plan: I do not see any evidence of current COPD exacerbation, pneumonia, bronchitis. Agree with Jg Q.6 hours. No indication for inhaled steroids or systemic steroids at this time. Goal saturation 90-94%. Currently she is on room air. It is unclear if the patient has chronic hypercarbic respiratory failure. Would continue empiric noninvasive ventilation with the AVAPS mode as above 1 more night as long as she tolerates this well. If she is struggling to tolerate this I would not press the issue and just place her on room air or nasal cannula keep saturations 90-94%. would try her without noninvasive ventilation the night of 01/30/2025 and when she is off the noninvasive ventilator for 24 hours will check a blood gas to assess for chronic hypercarbic respiratory failure. will order echocardiogram to assess LV function, RV function, and pulmonary pressures. Inpatient pulmonary consult services will resume on 02/01/2025, call with questions. 01/31/2025: ABG off of BiPAP for greater than 24 hours and on 2 L nasal cannula was 7.4 10/28/2068. No evidence of chronic hypercarbic respiratory failure. 02/01/2025: Patient remains debilitated, she cannot sit herself up in bed, she cannot cough. Overall she says she feels a little bit better. She still has shortness of breath at rest. Her cough is more than baseline and unchanged with no phlegm and no hemoptysis. Her last fever was 830 at 2:50 a.m. and she has been afebrile since then. When I entered the room she was on 2 L nasal cannula saturations 97%. I placed her on room air and her saturations were 93%. Her white blood cell count is 9.1, her BUN is 47, creatinine is 1.77, her bicarb is 17. Her procalcitonin has increased from 1.5 on 01/20/2025 to a value of 29.5 today. Her BNP is greater than 30,000. her CRP has increased from 0.9 on 01/20/2025 to a value of 6.0 today. yesterday she was positive 2.1 L, cumulative she is positive 2.5 L. Her weight today is 41.6. Patient had an overnight oximetry on 2 L nasal cannula with recording duration of 5 hours and 59 minutes, average saturation 94%. Low saturation 88%, time with saturation less than or equal to 88% was 0 minutes, oxygen desaturation index 1.6. Plan: patient has no wheezing and no evidence of COPD exacerbation. Continue DuoNebs q.6 hours. Patient had low eosinophils on presentation and no wheezing currently. I will discontinue budesonide nebulizers. Patient states she has minimal phlegm but maybe she is just not expectorating. I will add guaifenesin 1200 mg p.o. b.i.d. and a Cornet flutter valve today. Overnight oximetry on 2 L nasal cannula with adequate oxygenation and I will repeat an overnight oximetry tonight on room air. Patient has bilateral pleural effusions left greater than right with a BNP greater than 30,000 as well as renal insufficiency that has improved with IV fluids. Discussed with Renal and will cut back on IV fluids today. Will check chest x-ray tomorrow. 02/02/2025: When asked the patient how she is doing she said I do not know. I asked her if she was doing better or worsen she said I do not know. She did deny any rest shortness of breath, cough, phlegm or hemoptysis. When asked her how far she could walk 1 month ago she said I do not know. She said 6 months ago she could walk half a block. Currently patient is on room air with saturations 93%. White blood cell count 7.4, creatinine 1.84, BUN 45, serum bicarb 16, Procalcitonin has decreased from 29.5 on 02/01/2025 to 24.3 today. CRP is decreased from 6.0 on 02/01/2025 to 4.9 today. BNP remains greater than 30,000 today. Yesterday she was -175 mL, cumulative she has +4.1 L since admission. Her weight today is 42.5 kg. Patient had an overnight oximetry on room air with recording duration 7 hours and 24 minutes. Average saturation 91%. Low saturation 88%. Time with saturation less than or equal to 88% was 1 minute. Oxygen desaturation index 0. Chest x-ray today with bibasilar interstitial alveolar infiltrates, Congestion, retrocardiac infiltrate, small right and moderate left effusion and overall no change from 01/28/2025. Plan: continue DuoNebs q.6 hours, guaifenesin 1200 p.o. b.i.d. and Cornet flutter valve (patient was too confused to use this last night). Chest x-ray with congestion and bilateral pleural effusions, BNP remains greater than 30,000. IV fluids decreased yesterday and creatinine up a little bit from 1.77 to 1.84. she is on room air now. Would not recommend thoracentesis at this time. Would begin gentle diuresis per Renal and hospitalist teams. 02/03/25: Patient has been accepted at [facility] for hospice level of care. I asked the patient what her plans were for her continuation of care and she said I am not sure. I told her she had been accepted at a facility for hospice and she agreed. currently she is in no respiratory distress. She says she feels okay. She denies cough, phlegm or hemoptysis. Her room air saturations are 97%. She is afebrile. White blood cell count 6.8, creatinine 1 .81, she was positive 1.2 L yesterday and her weight today is 43 kg. Care coordinators note from yesterday says patient would like to go on comfort care and hospice services. She has been accepted at the [facility] with [facility]. level of care regarding continuation of medicines is unclear at this time. If the patient is to continue active treatment, from a pulmonary perspective patient is ready to be discharged on these pulmonary medications: DuoNebs q.i.d. ( patient is too debilitated and confused for inhalers). rescue albuterol nebulizer 2.5 mg q.4 hours p.r.n. shortness of breath or wheezing guaifenesin 600 mg p.o. b.i.d. p.r.n. congestion Flagyl 500 mg p.o. q.8 hours last dose on 02/10/2025. Ceftin 250 mg p.o. q.12 hours, last dose on 02/10/2025 Doxycycline 100 mg p.o. q.12 hours, last dose on 02/10/2025 oxygen at rest and with activity per facilities protocol, currently she is on room air with saturations 97% at rest. She requires no oxygen at night per overnight oximetry on 02/02/2025 Patient can follow in the Pulmonary Clinic in 4 weeks, I gave her our business card and informed our infusion nurse. CT scan of the chest on 03/03/2025. Discussed with Dr. Hendrickson, will sign off, call with questions. (2) Cavitary lesion of lung: Code(s): J98.4 - Other disorders of lung Status: Acute Assessment and Plan: Patient has a 9 mm spiculated nodule with a cavity in the superior segment of the right lower lobe and was treated with Zosyn for 7 days which ended 01/26/25. 01/29/25: plan: I will obtain a CT scan of the chest to reassess this cavity. Would favor a more prolonged course of antibiotics if the cavity exist such as Augmentin for another 14 days with follow-up CT scan in about 6-8 weeks. Later in the day patient had a CT chest compared to 01/20/2025 there was unchanged moderate apical predominant centrilobular emphysema and mild apical predominant paraseptal emphysema, unchanged small right pleural effusion, unchanged moderate left effusion with left lower lobe atelectasis versus infiltrate. Unchanged 0.9 mm cavity in the superior segment of the right lower lobe. 01/30/25: patient started on vancomycin, ceftriaxone and Flagyl. 02/01/2025: Patient's last fever was 01/30/2025 at 2:50 a.m.. She has no leukocytosis at 9.1 today, her CRP is 6 and her procalcitonin is 29.5. Spoke with Infectious Disease team and patient will be switched to ceftriaxone, Zyvox and Flagyl. Plan: Favor treatment of 0.9 mm cavity in the superior segment of the right lower lobe for total of 3 weeks of antibiotics from 01/20/2025. Overall her CT scan on 01/29/2025 compared to 01/20/2025 essentially unchanged. There is no air-fluid level or progression of the small cavity at 0.9 mm in the superior segment of the right lower lobe. Will repeat CRP and procalcitonin in the morning. Will repeat chest x-ray in the morning. 02/02/2025: Patient is afebrile. White blood cell count 7.4, creatinine 1.84, BUN 45, serum bicarb 16, Procalcitonin has decreased from 29.5 on 02/01/2025 to 24.3 today. CRP is decreased from 6.0 on 02/01/2025 to 4.9 today. Chest x-ray today with bibasilar interstitial alveolar infiltrates, Congestion, retrocardiac infiltrate, small right and moderate left effusion and overall no change from 01/28/2025. Plan: Plan on treating total 21 days of antibiotics from 01/20/25. Currently on linezolid from 01/31 with a stop date of 02/10/2025. Currently on Flagyl p.o. with a stop date 02/10/2025, currently on ceftriaxone since 01/30/2025. Infectious disease consult team following. 02/03/25: Patient is afebrile, white blood cell count 6.8 Plan: Per ID consult team. Flagyl 500 mg p.o. q.8 hours last dose on 02/10/2025. Ceftin 250 mg p.o. q.12 hours, last dose on 02/10/2025 Doxycycline 100 mg p.o. q.12 hours, last dose on 02/10/2025 Plan: Will repeat CT scan of the chest on 03/03/2025 to follow-up for 0.9 mm cavity superior segment of the right lower lobe. Subjective Date/time seen: 02/03/25 07:49 Interval history: 01/29/2025: This is a new pulmonary consult for COPD 59-year-old with a history of alcoholism, cirrhosis, CKD with creatinine 1.49 on 06/20/2024, tobacco use, hepatitis-C, chronic encephalopathy, malnutrition, tobacco use and COPD. Patient is currently transferred out of the ICU and she knows her name and the year but not the month and does not know the hospital or the president and the and I did states. Patient had a CT scan of the abdomen on 06/10/2024 which showed moderate bilateral pleural effusions. 01/20/2025: patient presented to the emergency department with hematemesis since 01/19/2025. [facility] Her blood pressure was 109/84, heart rate 86, respirations 16. White blood cell count 11.2 with eosinophils 0, creatinine 3.43, BUN 109, CRP 0.9, procalcitonin 1.2, lactic acid 2.0. Patient had a CT scan chest abdomen and pelvis and in comparison to 06/20/2024 the right pleural effusion had decreased, the left effusion was unchanged and moderate with left lower lobe atelectasis, There was a 9 mm cavity in the superior segment RLL, moderate apical predominant centrilobular emphysema and mild apical predominant paraseptal emphysema. She was started on Protonix, oct reotide, vancomycin and Rocephin empirically. EGD demonstrated reflux erosive esophagitis. Antibiotics were changed to Zosyn. Of note patient had a fractured right acetabulum, right inferior pubic rami fracture, mild abdominal pelvic ascites and later was found to have a fractured left wrist. Orthopedics was consulted and no surgical intervention was performed or planned. 01/24/2025 patient was extubated but had increased work of breathing and was reintubated 1 hour later. 01/26/2025 Zosyn was discontinued. 01/28/2025: Patient was extubated after successful spontaneous breathing trial on CPAP 5 PSV 8 with a blood gas of 7.49/36/93. Patient was placed on noninvasive ventilation with the AVAPS mode overnight. 01/29/2025: Patient is awake but encephalopathic, she is in no respiratory distress. Patient is on room air with saturations 95%. She is afebrile with a last fever of 827 at 6:00 a.m.. Her white blood cell count is 6.1, creatinine is 2.06. Yesterday she diuresed 120 mL and cumulative she is -6 mL since admission. Her weight today is 39.7 kg. Chest x-ray yesterday demonstrated ET tube with hyperinflation and retrocardiac infiltrate. The patient empirically was placed on noninvasive ventilation post extubation and I agree with that for tonight as long as she tolerates this. I placed her on the noninvasive ventilator with the AVAPS mode and adjusted the settings to comfort resulting in a rate of 14, tidal volume 450, EPAP 5, minimum inspiratory pressure 6, maximal inspiratory pressure 20, inspiratory time 1.0, rise of 5 which is the slowest and 28% FiO2. Later in the day patient had an echocardiogram with LVEF 655-60%, grade 1 diastolic dysfunction, mild left atrial enlargement, mild mitral regurg, mild aortic stenosis with a valve area of 1.8 cm, mean gradient 9, normal RV size and function, normal right atrial size, moderate tricuspid regurg with PASP of 53. Later in the day patient had a CT chest compared to 01/20/2025 there was unchanged moderate apical predominant centrilobular emphysema and mild apical predominant paraseptal emphysema, unchanged small right pleural effusion, unchanged moderate left effusion with left lower lobe atelectasis versus infiltrate. Unchanged 0.9 mm cavity in the superior segment of the right lower lobe. 01/30/2025: Vancomycin, ceftriaxone and Flagyl started. 01/31/25: Care coordination note states spoke with sister and plans for hospice consult and jail placement. 02/01/2025: Patient remains debilitated, she cannot sit herself up in bed, she cannot cough. Overall she says she feels a little bit better. She still has shortness of breath at rest. Her cough is more than baseline and unchanged with no phlegm and no hemoptysis. Her last fever was 830 at 2:50 a.m. and she has been afebrile since then. When I entered the room she was on 2 L nasal cannula saturations 97%. I placed her on room air and her saturations were 93%. Her white blood cell count is 9.1, her BUN is 47, creatinine is 1.77, her bicarb is 17. Her procalcitonin has increased from 1.5 on 01/20/2025 to a value of 29.5 today. Her BNP is greater than 30,000. her CRP has increased from 0.9 on 01/20/2025 to a value of 6.0 today. yesterday she was positive 2.1 L, cumulative she is positive 2.5 L. Her weight today is 41.6. Patient had an overnight oximetry on 2 L nasal cannula with recording duration of 5 hours and 59 minutes, average saturation 94%. Low saturation 88%, time with saturation less than or equal to 88% was 0 minutes, oxygen desaturation index 1.6. 02/02/2025: When asked the patient how she is doing she said I do not know. I asked her if she was doing better or worsen she said I do not know. She did deny any rest shortness of breath, cough, phlegm or hemoptysis. When asked her how far she could walk 1 month ago she said I do not know. She said 6 months ago she could walk half a block. Currently patient is on room air with saturations 93%. White blood cell count 7.4, creatinine 1.84, BUN 45, serum bicarb 16, Procalcitonin has decreased from 29.5 on 02/01/2025 to 24.3 today. CRP is decreased from 6.0 on 02/01/2025 to 4.9 today. BNP remains greater than 30,000 today. Yesterday she was -175 mL, cumulative she has +4.1 L since admission. Her weight today is 42.5 kg. Patient had an overnight oximetry on room air with recording duration 7 hours and 24 minutes. Average saturation 91%. Low saturation 88%. Time with saturation less than or equal to 88% was 1 minute. Oxygen desaturation index 0. Chest x-ray today with bibasilar i nterstitial alveolar infiltrates, Congestion, retrocardiac infiltrate, small right and moderate left effusion and overall no change from 01/28/2025. 02/03/25: Patient has been accepted at [facility] for hospice level of care. I asked the patient what her plans were for her continuation of care and she said I am not sure. I told her she had been accepted at a facility for hospice and she agreed. currently she is in no respiratory distress. She says she feels okay. She denies cough, phlegm or hemoptysis. Her room air saturations are 97%. She is afebrile. White blood cell count 6.8, creatinine 1.81, she was positive 1.2 L yesterday and her weight today is 43 kg. DATA: 01/29/25: Echo Summary 1. Complete two-dimensional, color flow and Doppler transthoracic echocardiogram is performed. 2. Left ventricular chamber dimension is normal. 3. Left ventricular systolic function is normal, estimated at 55-60. 4. There is mild concentric increased left ventricular wall thickness. 5. The left ventricular diastolic function is grade I diastolic dysfunction. 6. E/e' 9 is minimally elevated. 7. Left atrial chamber dimension is moderately enlarged. 8. There is mild aortic valve sclerosis. 9. There is mild aortic valve stenosis based on a peak velocity of 214 cm/s, mean gradient of 9 mmHg, and aortic valve area of 1.8 cm2. 10. There is mild mitral valve regurgitation. 11. There is mild tricuspid valve regurgitation. 12. Moderate pulmonary hypertension, estimated pulmonary arterial systolic pressure is 53 mmHg. Right Ventricle Right ventricular chamber dimension is normal. Right ventricular systolic function is normal and with normal TAPSE 1.8 cm. Right Atria Right atrial chamber dimension is normal. 01/29/25: EXAMINATION: CT diagnostic chest wo con INDICATION: Right upper lobe cavity COMPARISON: CT chest abdomen and pelvis 01/20/2025 FINDINGS: Study is slightly limited due to motion artifact. No enlarged mediastinal or hilar lymph nodes. Heart is mildly moderately enlarged, unchanged. There are a few coronary artery calcifications. There is contrast noted in the stomach and proximal small bowel. There is nonspecific fluid and fat stranding in the upper abdomen similar to the study from 01/20/2025. Thoracic aorta is partially calcified but is not aneurysmal. Small right-sided pleural effusion. Moderate- sized left-sided pleural effusion. No pneumothorax. Grossly stable moderate centrilobular emphysema.Stable 1.9 cm bulla in the right lung apex. Grossly stable size and configuration of the 0.9 cm cavitary lesion in the superior segment of the right lower lobe. Moderate-sized consolidation in the left lower lobe with air bronchograms. Mild biapical scarring. Bones appear osteopenic. Multilevel degenerative change in the visualized spine. Stable compression fracture in what appears to be T12 vertebral body. Stable compression fracture of T6. IMPRESSION: 1. Grossly stable size and configuration of the 0.9 cm cavitary lesion in the superior segment of the right lower lobe. Differential includes but is not limited to an infectious process, necrotic malignancy or septic pulmonary embolus. Consider a biopsy or PET/CT. Short-term follow-up is recommended. 2. Moderate-sized left-sided pleural effusion. 3. Small right-sided pleural effusion. 4. Moderate-sized consolidation in the left lower lobe with air bronchograms. Recommend follow-up to resolution. 5. There is contrast within the stomach and proximal small bowel. 6. There is nonspecific fluid and fat stranding in the upper abdomen similar to the CT study from 01/20/2025. 01/29/25: modified barium swallow FINDINGS: Oral stage: Adequate function. Pharyngeal stage: Reduced laryngeal elevation. There is laryngeal penetration with aspiration with thin liquids.. Cervical/esophageal stage: Adequate function. IMPRESSION: Pharyngeal dysphagia with laryngeal penetration and aspiration with thin liquids. Impression: Moderate/severe dysphagia characterized by the instance of silent aspiration of thin liquids. Recommendation: pureed diet level 4 and mildly thick liquids level 2. ST to treat and reassess pt's ability to manage solids if dentures are found. 01/28/25: XR chest 1V portable 01/28/2025 05:39 Indication: Respiratory failure Procedure: AP portable chest Comparison: Comparison to multiple prior studies sequentially, with oldest reviewed study dated 01/24/2025. Findings: Cardiomegaly. Persistent retrocardiac airspace consolidation. No significant effusion. No pneumothorax. Endotracheal tube tip 3.2 cm above the aylin. Right IJ central line tip in the SVC. Impression: 1: Retrocardiac airspace consolidation which may represent atelectasis or pneumonia. No significant change. 01/20/2025: Clinical Indication: GI bleed CT Scan of the Chest, Abdomen, and Pelvis without Contrast: Comparison: 06/20/2024 Findings: Endotracheal tube and NG tube are in place. There is no evidence of any significant mediastinal, hilar or axillary lymphadenopathy. The mediastinal soft tissues appear normal. No pericardial effusion. Moderate to large left pleural effusion present. There is extensive left lower lobe atelectasis. Small right pleural effusion present. There is a 9 mm spiculated nodular opacity with central cavitation in the right lower lobe (axial image 85). Moderate emphysema present. There is right apical scarring. The liver, spleen, pancreas, gallbladder, adrenals and kidneys are within normal limits. No evidence of aortic aneurysm. No lymphadenopathy. There is probable oral contrast on board. No definite evidence for GI bleed identified. No bowel obstruction or bowel wall thickening evident. Mclean catheter in place. No pelvic mass seen. Moderate abdominopelvic ascites present. Moderate T12 compression fracture deformity is present, new from prior exam. There is acute fracture of the anterior acetabulum at the junction with the right superior pubic ramus. There is additional fracture inferior pubic ramus. These fractures are acute to subacute in appearance. Impression: Moderate to large left pleural effusion with extensive left lower lobe ate lectasis. Small right pleural effusion. 9 mm spiculated nodule in the right lower lobe, as detailed above, indeterminate. CT scan in 3 months advised. Consider PET/CT or attempted tissue sampling as indicated. Moderate emphysema. No definite evidence for GI bleed, but evaluation is limited without IV contrast and with oral contrast on board. Consider follow-up CT angiogram of the bowel to further evaluate for GI bleed, as indicated. Moderate abdominopelvic ascites. T12 compression fracture, somewhat age indeterminate, but new since 06/20/2024. Fractures of the right anterior acetabulum at the junction of the right superior pubic ramus and of the right inferior pubic ramus, acute to subacute in nature. Review of Systems Review of Systems: ROS unobtainable: Yes unobtainable due to mental status Constitutional: Constitutional: Reports no additional constitutional complaints Eyes: Eyes: Reports no additional eye complaints ENT: Reports system reviewed and no additional complaints, except as documented Cardiovascular: Cardiovascular: Reports no additional cardiovascular complaints Respiratory: Respiratory: Reports no additional respiratory complaints Gastrointestinal: Gastrointestinal: Reports no additional gastrointestinal complaints Musculoskeletal: Musculoskeletal: Reports no additional musculoskeletal complaints Neurologic: Reports system reviewed and no additional complaints, except as documented Psychiatric: Psychiatric: Reports no additional psychiatric complaints Endocrine: Endocrine: Reports no additional endocrine complaints Hematologic/Lymphatic: Hematologic/Lymphatic: Reports no additional hematologic/lymphatic complaints Allergic/Immunologic: Allergic/Immunologic: Reports no additional allergic/immunologic complaints Exam Const: General: cooperative, comfortable and no acute distress Orientation/consciousness: oriented to person, oriented to place and oriented to time Other: Cachectic, Cannot pull herself up in bed, extremely poor ineffective cough. HENMT: Head: normal to inspection Ears: hearing grossly normal bilaterally Eyes: General: appearance normal, both eyes and all related structures Neck: Neck: normal visual inspection Chest: Chest palpation & inspection: normal inspection of the chest Resp: Effort & Inspection: normal respiratory effort and able to speak in complete sentences Auscultation: no crackles, no rales, no rhonchi, no wheezes and diminished lung sounds Other: decreased breath sounds throughout Cardio: Jugular venous distension: no JVD GI: Inspection: normal to inspection Skin: General skin exam: normal color Neuro: General: oriented to person, oriented to place and oriented to time Extrem: General: normal to inspection Other: no edema Cachectic Psych: Appearance: grossly normal Objective Data Vital Signs Vital Signs: Vital Signs - 24 hr 09/02/25 08:00 02/02/25 08:23 02/02/25 13:41 Temperature Pulse Rate 84 82 Respiratory Rate 20 20 Blood Pressure Pulse Oximetry Oxygen Delivery Room Air Fraction of Inspired Oxygen 02/02/25 14:00 02/02/25 19:49 02/02/25 19:56 Temperature 36.8 C Pulse Rate 103 H 80 80 Respiratory Rate 22 H 18 18 Blood Pressure 131/76 Pulse Oximetry 94 Oxygen Delivery Fraction of Inspired Oxygen 02/02/25 20:08 02/02/25 20:24 02/03/25 01:55 Temperature 36.6 C Pulse Rate 99 80 Respiratory Rate 16 18 Blood Pressure 138/92 H Pulse Oximetry 97 Oxygen Delivery Room Air Fraction of Inspired Oxygen 28 02/03/25 02:00 02/03/25 05:11 Temperature 36.4 C Pulse Rate 80 99 Respiratory Rate 18 16 Blood Pressure 162/104 H Pulse Oximetry 97 Oxygen Delivery Fraction of Inspired Oxygen Intake/Output Intake/Output: Intake & Output 01/31/25 02/01/25 02/02/25 02/03/25 23:59 23:59 23:59 23:59 Intake Total 3020 550 2000 600 Output Total 850 725 775 300 Balance 2170 -175 1225 300 Meds/Results Medications: Active Medications Generic Name Dose Route Start Last Admin Trade Name Freq PRN Reason Stop Dose Admin Acetaminophen 650 mg 01/23/25 14:11 02/01/25 21:11 Acetaminophen 325 Mg Tablet FEED TUBE 650 mg Q4H PRN Administration Fever 1-3 Hydrocodone Bitart/Acetaminophen 1 tab 02/01/25 22:40 02/03/25 02:01 Hydrocodone/Acetaminophen (*Crx) 5-325 Mg Tablet PO 1 tab Q6H PRN Administration Pain Rated 4-6 Albuterol/Ipratropium 3 ml 01/26/25 14:00 02/03/25 07:23 Ipratropium 0.5 Mg/Albuterol Sulfate 2.5 Mg Ampul.Neb 3 Ml INHALATION 3 ml Q6HRT MEENA Administration Amlodipine Besylate 10 mg 01/31/25 09:00 02/02/25 09:41 Amlodipine Besylate 10 Mg Tablet FEED TUBE 10 mg DAILY MEENA Administration Cefuroxime Axetil 250 mg 02/03/25 09:00 Cefuroxime Axetil 250 Mg Tablet PO 02/10/25 21:01 Q12HR MEENA Dextrose 12.5 gm 01/20/25 08:23 01/29/25 11:47 Dextrose 50% 25 Gm/50 Ml Syringe IV PUSH 12.5 gm PRN PRN Administration Hypoglycemia Protocol Doxycycline Hyclate 100 mg 02/02/25 21:00 02/02/25 20:25 Doxycycline Hyclate 100 Mg Tablet PO 02/10/25 21:01 100 mg Q12HR MEENA Administration Folic Acid 1 mg 01/20/25 09:00 02/02/25 11:38 Folic Acid 1 Mg/0.2 Ml Inj IV PUSH 1 mg QAM MEENA Administration Glucagon 1 mg 01/20/25 08:23 Glucagon For Inj 1 Mg Vial IM PRN PRN Hypoglycemia Protocol Glucose 15 gm 01/20/25 08:23 Glucose Oral Gel 15 Gm Of Glucse In 37.5 Gm Tube PO PRN PRN Hypoglycemia Protocol Guaifenesin 1,200 mg 02/01/25 10:00 02/02/25 20:24 Guaifenesin 12 Hr 600 Mg Tabcr PO 1,200 mg Q12HR MEENA Administration Hydralazine HCl 20 mg 01/24/25 03:34 01/30/25 02:48 Hydralazine Hcl 20 Mg/Ml Vial IV PUSH 20 mg Q4H PRN Administration Hypertension Hydralazine HCl 50 mg 02/01/25 14:00 02/03/25 04:51 Hydralazine Hcl 25 Mg Tablet PO 50 mg Q8HR MEENA Administration Dextrose 1,000 mls @ 100 mls/hr 01/20/25 08:23 Dextrose 5% 1,000 Ml IVPB PRN PRN Hypoglycemia Protocol Insulin Aspart 3 - 6 units 01/20/25 12:00 02/03/25 07:34 Insulin Aspart (*Bkc) 100 Units/Ml SUB-Q Not Given Q6HR MEENA Protocol Labetalol HCl 20 mg 01/23/25 09:31 02/01/25 05:30 Labetalol Hcl Inj 100 Mg/20 Ml Vial IV PUSH 20 mg Q4H PRN Administration SBP > 160 and HR> 60 -1st choice Metronidazole 500 mg 02/01/25 14:00 02/03/25 04:51 Metronidazole 500 Mg Tablet PO 02/10/25 22:01 500 mg Q8HR MEENA Administration Potassium Chloride 20 meq 02/02/25 08:00 02/02/25 09:41 Potassium Chloride 20 Meq Er Tablet PO 20 meq DAILY@0800 MEENA Administration Thiamine HCl 100 mg 01/20/25 09:00 02/02/25 09:42 Thiamine Hcl 200 Mg/2 Ml Vial IV PUSH 100 mg QAM MEENA Administration Radiology Results: ITS Impressions Abdomen X-Ray 01/20/25 05:42 Impression: NG tube in satisfactory position. Small left pleural effusion. Chest/Abdomen/Pelvis CT 01/20/25 05:48 Impression: Moderate to large left pleural effusion with extensive left lower lobe atelectasis. Small right pleural effusion. 9 mm spiculated nodule in the right lower lobe, as detailed above, indeterminate. CT scan in 3 months advised. Consider PET/CT or attempted tissue sampling as indicated. Moderate emphysema. No definite evidence for GI bleed, but evaluation is limited without IV contrast and with oral contrast on board. Consider follow-up CT angiogram of the bowel to further evaluate for GI bleed, as indicated. Moderate abdominopelvic ascites. T12 compression fracture, somewhat age indeterminate, but new since 06/20/2024. Fractures of the right anterior acetabulum at the junction of the right superior pubic ramus and of the right inferior pubic ramus, acute to subacute in nature. Head CT 01/20/25 06:13 Impression: No intracranial hemorrhage, mass, or acute infarct. Atrophy and chronic white matter changes, as above. Wrist X-Ray 01/20/25 06:13 Impression: Probable chronic fracture deformities of the distal radius and ulnar styloid process, as detailed above. No definite acute fracture. Renal Ultrasound 01/21/25 08:42 IMPRESSION: 1. Medical renal disease. 2. Mild bilateral hydronephrosis. No nephrolithiasis. Hip/Pelvis X-Ray 01/24/25 11:12 Impression: 1: Healing right acetabular and inferior pubic rami fractures with callus formation. Modified Barium Swallow 01/29/25 13:33 IMPRESSION: Pharyngeal dysphagia with laryngeal penetration and aspiration with thin liquids. Please correlate with speech pathologist findings and specific feeding recommendations. Chest CT 01/29/25 16:18 IMPRESSION: 1. Grossly stable size and configuration of the 0.9 cm cavitary lesion in the superior segment of the right lower lobe. Differential includes but is not limited to an infectious process, necrotic malignancy or septic pulmonary embolus. Consider a biopsy or PET/CT. Short-term follow-up is recommended. 2. Moderate-sized left-sided pleural effusion. 3. Small right-sided pleural effusion. 4. Moderate-sized consolidation in the left lower lobe with air bronchograms. Recommend follow-up to resolution. 5. There is contrast within the stomach and proximal small bowel. 6. There is nonspecific fluid and fat stranding in the upper abdomen similar to the CT study from 01/20/2025. Chest X-Ray 02/02/25 07:53 IMPRESSION: 1. Likely congestive heart failure with cardiomegaly, mild pulmonary edema and small right and [id number] left pleural effusions. 2. Retrocardiac consolidation in the left lower lung zone which could represent atelectasis or pneumonia. 3. Indeterminate nodular opacity in the. Right lower lobe Labs Labs: Laboratory Results - last 24 hr 02/02/25 02/02/25 02/03/25 11:30 23:38 04:42 WBC RBC Hgb Hct MCV MCH MCHC RDW Plt Count MPV Immature Gran % (Auto) Neut % (Auto) Lymph % (Auto) [place] % (Auto) Eos % (Auto) Baso % (Auto) Lymph # (Auto) [place] # (Auto) Eos # (Auto) Baso # (Auto) Abs Immat Gran (auto) Absolute Neuts (auto) Absolute Nucleated RBC Band Neutrophils % Nucleated RBC % Platelet Estimate % Immature Plt Fraction Anisocytosis Schistocytes Sodium Potassium Chloride Carbon Dioxide Anion Gap BUN Creatinine Estim Creat Clear Calc Estimated GFR Glucose POC Capillary Glucose 88 85 80 Lactic Acid Calcium Magnesium Total Bilirubin AST ALT Alkaline Phosphatase Total Protein Albumin Triglycerides 02/03/25 05:22 WBC 6.8 RBC 3.87 L Hgb 11.7 L Hct 37.6 MCV 97.2 MCH 30.2 MCHC 31.1 L RDW 23.1 H Plt Count 78 L MPV 10.1 Immature Gran % (Auto) 1.5 H Neut % (Auto) 72.5 Lymph % (Auto) 16.5 L [place] % (Auto) 7.7 Eos % (Auto) 1.2 Baso % (Auto) 0.6 Lymph # (Auto) 1.12 [place] # (Auto) 0.5 Eos # (Auto) 0.1 Baso # (Auto) 0.0 Abs Immat Gran (auto) 0.10 H Absolute Neuts (auto) 4.9 Absolute Nucleated RBC 0.000 Band Neutrophils % Not Reportable Nucleated RBC % 0.0 Platelet Estimate Decreased % Immature Plt Fraction 2.8 Anisocytosis 1+ Schistocytes None seen Sodium 136 L Potassium 3.1 L Chloride 109 H Carbon Dioxide 11 L Anion Gap 16 H BUN 39 H Creatinine 1.81 H Estim Creat Clear Calc 20 Estimated GFR 29 L Glucose 77 POC Capillary Glucose Lactic Acid 0.5 L Calcium 8.1 L Magnesium 1.8 Total Bilirubin 1.2 AST 26 ALT 17 Alkaline Phosphatase 104 Total Protein 6.3 Albumin 3.2 L Triglycerides 191 H
--- NOTE | 2025-02-03 09:11 | PM.DS ---
DS: Admitting Diagnosis Discharge Date 02/03/2025 Admitting Diagnosis Hematemesis DS: Discharge Diagnosis Discharge Diagnosis (1) Alcohol abuse: Code(s): F10.10 - Alcohol abuse, uncomplicated Status: Acute (2) Transaminitis: Code(s): R74.01 - Elevation of levels of liver transaminase levels Status: Acute (3) Severe protein-calorie malnutrition: Code(s): E43 - Unspecified severe protein-calorie malnutrition Status: Acute (4) COPD (chronic obstructive pulmonary disease): Code(s): J44.9 - Chronic obstructive pulmonary disease, unspecified Status: Acute (5) Aspiration pneumonia: Code(s): J69.0 - Pneumonitis due to inhalation of food and vomit Status: Acute (6) Acute hypoxic respiratory failure: Code(s): J96.01 - Acute respiratory failure with hypoxia Status: Acute (7) Cavitary lesion of lung: Code(s): J98.4 - Other disorders of lung Status: Acute DS: Summary Hospital Course Hospital Course: 59-year-old female with PMH prior alcohol use disorder, cirrhosis, CKD, chronic encephalopathy, tobacco abuse, COPD, severe protein calorie malnutrition presented to [facility] ER on 01/20/2025 by EMS with hematemesis/GI bleed. She was recently in a SNF and she left against medical advice, returned home and had multiple episodes of bloody vomitus. Patient was intubated for airway protection. Extubated on 01/24 reintubated for respiratory failure, extubated on 01/28 again has since been on room air. She remains encephalopathic. Status post multiple units of PRBC, hemoglobin stable. Found to have a right lower lobe spiculated cavitary lesion suggestive of aspiration with necrotizing pneumonia. Ultimately, on 02/03/2025 she is in stable condition however she is being discharged to [facility] with comfort/hospice care as directed by her POA. Have discussed this with her POA Shirley Soler again. She would like no further antibiotics or medications aside from comfort care. The patient is DNR. Time Spent with Patient Time attestation: Total time spent providing and/or coordinating discharge services: Exam Const: General: comfortable and no acute distress Other: Pleasantly confused Eyes: Pupils: Equal, round and reactive pupils present Neck: Neck: supple Resp: Effort & Inspection: normal respiratory effort Auscultation: clear to auscultation bilaterally Cardio: Rate: regular rate Rhythm: regular rhythm GI: Auscultation: normal bowel sounds Extrem: General: no edema DS: Data Data Completed and Pending Labs on day of discharge: Labs from last 24 hours 02/03/25 02/03/25 02/02/25 05:22 04:42 23:38 WBC 6.8 RBC 3.87 L Hgb 11.7 L Hct 37.6 MCV 97.2 MCH 30.2 MCHC 31.1 L RDW 23.1 H Plt Count 78 L MPV 10.1 Immature Gran % (Auto) 1.5 H Neut % (Auto) 72.5 Lymph % (Auto) 16.5 L [place] % (Auto) 7.7 Eos % (Auto) 1.2 Baso % (Auto) 0.6 Lymph # (Auto) 1.12 [place] # (Auto) 0.5 Eos # (Auto) 0.1 Baso # (Auto) 0.0 Abs Immat Gran (auto) 0.10 H Absolute Neuts (auto) 4.9 Absolute Nucleated RBC 0.000 Band Neutrophils % Not Reportable Nucleated RBC % 0.0 Platelet Estimate Decreased % Immature Plt Fraction 2.8 Anisocytosis 1+ Schistocytes None seen Sodium 136 L Potassium 3.1 L Chloride 109 H Carbon Dioxide 11 L Anion Gap 16 H BUN 39 H Creatinine 1.81 H Estim Creat Clear Calc 20 Estimated GFR 29 L Glucose 77 POC Capillary Glucose 80 85 Lactic Acid 0.5 L Calcium 8.1 L Magnesium 1.8 Total Bilirubin 1.2 AST 26 ALT 17 Alkaline Phosphatase 104 Total Protein 6.3 Albumin 3.2 L Triglycerides 191 H 02/02/25 11:30 WBC RBC Hgb Hct MCV MCH MCHC RDW Plt Count MPV Immature Gran % (Auto) Neut % (Auto) Lymph % (Auto) [place] % (Auto) Eos % (Auto) Baso % (Auto) Lymph # (Auto) [place] # (Auto) Eos # (Auto) Baso # (Auto) Abs Immat Gran (auto) Absolute Neuts (auto) Absolute Nucleated RBC Band Neutrophils % Nucleated RBC % Platelet Estimate % Immature Plt Fraction Anisocytosis Schistocytes Sodium Potassium Chloride Carbon Dioxide Anion Gap BUN Creatinine Estim Creat Clear Calc Estimated GFR Glucose POC Capillary Glucose 88 Lactic Acid Calcium Magnesium Total Bilirubin AST ALT Alkaline Phosphatase Total Protein Albumin Triglycerides Discharge Plan Discharge Attending physician on discharge: gavin Consulting providers: Edil Giraldo; Monserrat Cedeno; Humberto Perry; Gaudencio Beltran; Eron Gar; Hayley Higginbotham; Abhishek Lorenzo; Cristino Rossi Discharging Clinician: Cris Hendrickson Patient Disposition: Hospice - Medical Facility Activity: may shower Diet: as tolerated Discharge Instructions: oxygen, neb treatments as needed and other comfort care measures per facility protocol. Patient Language: Israeli Stand Alone Forms: General Discharge Information Discharge Medications: New lorazepam [Ativan] 1 mg tablet 1 mg PO TID PRN (Reason: anxiety) Qty: 3 0RF morphine concentrate 10 mg/0.5 mL syringe 10 mg PO Q4H PRN (Reason: pain) Qty: 3 0RF acetaminophen 500 mg capsule 500 mg PO Q6H PRN (Reason: pain) Qty: 30 0RF Discontinued clonazepam 1 mg tablet 1 mg PO Q8H PRN (Reason: anxiety) diazepam 10 mg tablet 10 mg PO DAILY Date of admission: 01/20/25 08:36 Primary Care Provider: PHYSICIAN NOT ON STAFF,NONSTAFF Admitting Provider: Naila Torres Attending physician on admission: Naila Torres Condition: Stable Hospitalist MIPS Heart Failure (Exclusion) Patient has history of Heart Transplant or Left Ventricular Assistive Device?: No IF YES, STOP HERE Heart Failure (Qualifier) Patient has current or prior documentation of LVEF less than or equal to 40%, or mod/servere depressed LVSF?: No IF NO, STOP HERE
[2025-02-03] MEDS: DOXYCYCLINE HYCLATE 100 MG TABLET PO (09:16)
[2025-02-03] MEDS: THIAMINE HCL 200 MG/2 ML VIAL 100 MG IV PUSH (09:16)
[2025-02-03] MEDS: guaiFENesin 12 HR 600 MG TABCR 1200 MG PO (09:16)
[2025-02-03] MEDS: POTASSIUM CHLORIDE 20 MEQ ER TABLET PO (09:16)
[2025-02-03] MEDS: FOLIC ACID 1 MG/0.2 ML INJ IV PUSH (09:16)
[2025-02-03 09:35] VITALS: PULSE 92; RESP 18
[2025-02-03 09:38] VITALS: PULSE 96; RESP 18
== END 2025-02-03 13:15 | disposition hospice, inpatient (51) | DRG 870 ==
LOC: ANHED 02:27 → ANHICU 03:33 → ANHCPC 18:33 → ANHICU 01-22 10:24 → ANHIMU 01-29 12:47 → ANH3MEDSUR 02-01 14:35
PROVIDERS: General Practice; Internal Medicine; Internal Medicine Gastroenterology; Internal Medicine Nephrology; Internal Medicine Pulmonary Disease; Admitting Provider Internal Medicine; Emergency Provider Emergency Medicine; Visit Provider General Practice
PROC: 0DJ08ZZ Inspection of Upper Intestinal Tract, Via Natural or Artificial Opening Endoscopic (ICD-10-PCS; principal; 2025-01-20 14:00)
DX: A41.9 Sepsis, unspecified organism (principal); E43 Unspecified severe protein-calorie malnutrition; J96.01 Acute respiratory failure with hypoxia; J85.0 Gangrene and necrosis of lung; J69.0 Pneumonitis due to inhalation of food and vomit; K22.11 Ulcer of esophagus with bleeding; K21.01 Gastro-esophageal reflux disease with esophagitis, with bleeding; D62 Acute posthemorrhagic anemia; S32.591A Other specified fracture of right pubis, initial encounter for closed fracture; Z68.1 Body mass index [BMI] 19.9 or less, adult; N18.4 Chronic kidney disease, stage 4 (severe); J44.0 Chronic obstructive pulmonary disease with (acute) lower respiratory infection; G93.40 Encephalopathy, unspecified; N17.9 Acute kidney failure, unspecified; D68.4 Acquired coagulation factor deficiency; J90 Pleural effusion, not elsewhere classified; N39.0 Urinary tract infection, site not specified; B95.7 Other staphylococcus as the cause of diseases classified elsewhere; E87.6 Hypokalemia; E88.A Wasting disease (syndrome) due to underlying condition; S32.401G Unspecified fracture of right acetabulum, subsequent encounter for fracture with delayed healing; X58.XXXD Exposure to other specified factors, subsequent encounter; D50.9 Iron deficiency anemia, unspecified; D63.1 Anemia in chronic kidney disease; D69.6 Thrombocytopenia, unspecified; K70.31 Alcoholic cirrhosis of liver with ascites; F10.20 Alcohol dependence, uncomplicated; F17.210 Nicotine dependence, cigarettes, uncomplicated; K44.9 Diaphragmatic hernia without obstruction or gangrene; D69.59 Other secondary thrombocytopenia; Z66 Do not resuscitate
CPT/HCPCS: 31500; 36415; 36430; 36600; 70450; 71045; 71250; 73110; 73521; 74176; 74230; 76770; 80048; 80053; 80069; 80074; 80202; 80307; 81001; 81050; 82077; 82103; 82104; 82140; 82375; 82550; 82565; 82570; 82595; 82805; 82948; 83050; 83540; 83550; 83605; 83690; 83735; 83880; 84100; 84145; 84156; 84300; 84478; 84540; 85018; 85025; 85027; 85055; 85380; 85384; 85610; 85652; 85730; 85999; 86140; 86704; 86706; 86850; 86900; 86901; 86920; 86923; 87040; 87086; 87522; 87641; 92526; 92610; 92611; 93306; 94002; 94003; 94640; 94660; 94667; 94668; 94762; 96365; 96366; 96367; 96368; 96375; 96376; 99285; A9270; C1751; G0378; J0168; J0330; J0360; J0612; J0613; J0696; J1756; J1836; J1938; J2250; J2354; J2470; J2543; J2704; J2997; J3010; J3373; J3411; J3475; J3480; J7040; J7050; J7120; P9012; P9016; P9017; P9034; P9047; Q5105